=== PATIENT | male | born 1975 | race Two or more races ===

== ENCOUNTER 2019-01-04 12:10 | Inpatient (IN) | payer SELFPAY ==
[~2019-01-04] VITALS: Ht 170.2 cm; Wt 108.9 kg
[2019-01-04 13:53] LABS: BASO % 1 % (0-3); EOS # 0.1 x10^3/uL (0.0-0.7); EOS % 1 % (0-3); HEMATOCRIT 31.8 % (39.0-53.0); HEMOGLOBIN 11.2 g/dL (13.0-17.5); LYMPH # 0.8 x10^3/uL (1.0-4.8); LYMPH % 13 % (24-48); MEAN CORPUSCULAR HEMOGLOBIN 37 pg (25-35); MEAN CORPUSCULAR HGB CONC 35 g/dL (31-37); MEAN CORPUSCULAR VOLUME 105 fL (79-100); MONO # 0.6 x10^3/uL (0.0-1.1); MONO % 10 % (0-9); NEUT # 4.3 x10^3/uL (1.8-7.7); NEUT % 75 % (31-73); PLATELET COUNT 78 x10^3/uL (140-400); RED BLOOD COUNT 3.02 x10^6/uL (4.30-5.70); RED CELL DISTRIBUTION WIDTH 15.5 % (11.5-14.5); WHITE BLOOD COUNT 5.7 x10^3/uL (4.0-11.0)
[2019-01-04 14:12] LABS: CALCIUM 7.6 mg/dL (8.5-10.1); CREATININE 0.7 mg/dL (0.7-1.3); GFR 122.5; POTASSIUM 3.3 mmol/L (3.5-5.1)
[2019-01-04 14:16] LABS: BILIRUBIN,URINE LARGE (NEG); CLARITY,URINE CLEAR; COLOR,URINE ORANGE; NITRITE,URINE NEGATIVE (NEG); PROTEIN,URINE 100 mg/dL (NEG-TRACE)
[2019-01-04 14:23] LABS: BACTERIA,URINE 0 /HPF (0-FEW); RBC,URINE OCC /HPF (0-2); SQUAMOUS EPITHELIAL CELL,UR FEW /LPF; WBC,URINE RARE /HPF (0-4)
[2019-01-04 14:24] LABS: AMPHETAMINE/METHAMPHETAMINE NEG (NEG); BARBITURATES NEG (NEG); BENZODIAZEPINES NEG (NEG); CANNABINOIDS NEG (NEG); COCAINE NEG (NEG); METHADONE NEG (NEG); OPIATES NEG (NEG); PHENCYCLIDINE NEG (NEG)
[2019-01-04 14:25] LABS: ALBUMIN 2.5 g/dL (3.4-5.0); ALBUMIN/GLOBULIN RATIO 0.5 (1.0-1.7); TOTAL PROTEIN 7.1 g/dL (6.4-8.2)
[2019-01-04 14:35] LABS: % BANDS 3 % (0-9); % BASOS 2 % (0-3); % EOS 2 % (0-5); % LYMPHS 14 % (24-48); % MONOS 9 % (0-10); % SEGS 70 % (35-66)
[2019-01-04 14:45] LABS: PLT ESTIMATE DECREASED (ADEQUATE)
[2019-01-04] MEDS ORDERED: IOHEXOL 240 MG/ML 50ML VIAL. PO ONE (15:15)
[2019-01-04] MEDS ORDERED: IOHEXOL 300 MG/ML 100ML VIAL. IV ONE (15:15)
[2019-01-04 15:27] LABS: PROTHROMBIN TIME PATIENT 18.3 SEC (11.7-14.0)
--- NOTE | 2019-01-04 15:28 | PHYS DOC ---
Past Medical History Past Medical History: Anxiety Additional Past Medical Histor: PANIC ATTACKS Past Surgical History: No Surgical History Alcohol Use: Heavy Additional Information: STOPPED DRINKING APPROX 20 BEERS A DAY 3 DAYS AGO Drug Use: None Adult General Chief Complaint Chief Complaint: ABNORMAL LABS [facility] HPI Patient is a 43 year old male with history of chronic alcohol abuse who presents with complaining of abnormal labs. Patient was seen by his primary care physician because of frequent ecchymosis and was told to come to ER because abnormal labs. She states he has had dizzy without bruising for the last 1 month without hematemesis, melena, hematuria, losing weight, abdominal pain or distention, chest pain and shortness of breath. Patient states he had history of 25 years of alcohol abuse. Review of Systems Review of Systems Constitutional: Denies fever or chills [] Eyes: Denies change in visual acuity, redness, or eye pain [] HENT: Denies nasal congestion or sore throat [] Respiratory: Denies cough or shortness of breath [] Cardiovascular: No additional information not addressed in HPI [] GI: Denies abdominal pain, nausea, vomiting, bloody stools or diarrhea [] : Denies dysuria or hematuria [] Musculoskeletal: Denies back pain or joint pain [] Integument: Denies rash or skin lesions [] Neurologic: Denies headache, focal weakness or sensory changes [] Endocrine: Denies polyuria or polydipsia [] All other systems were reviewed and found to be within normal limits, except as documented in this note. Current Medications Current Medications Current Medications Medications (Trade) Dose Ordered Sig/Amrik Start Time Stop Time Status Last Admin Dose Admin Info (CONTRAST GIVEN -- Rx MONITORING) 1 each PRN DAILY PRN 01/04/19 15:30 01/06/19 15:29 Iohexol (Omnipaque 240 Mg/ml) 30 ml 1X ONCE 01/04/19 15:15 01/04/19 15:17 DC 01/04/19 15:15 30 ML Iohexol (Omnipaque 300 Mg/ml) 75 ml 1X ONCE 01/04/19 15:15 01/04/19 15:17 DC 01/04/19 16:20 75 ML Allergies Allergies Allergies Coded Allergies Type Severity Reaction Last Updated Verified No Known Drug Allergies 01/04/19 No Physical Exam Physical Exam Constitutional: Well developed, well nourished, no acute distress, non-toxic appearance. [] HENT: Normocephalic, atraumatic, bilateral external ears normal, oropharynx moist, no oral exudates, nose normal. [] Eyes: PERRLA, EOMI, conjunctiva normal, no discharge. [] Neck: Normal range of motion, no tenderness, supple, no stridor. [] Cardiovascular:Heart rate regular rhythm, no murmur [] Lungs & Thorax: Bilateral breath sounds clear to auscultation [] Abdomen: Bowel sounds normal, soft, no tenderness, no masses, no pulsatile masses. [] Skin: Warm, dry, no erythema, no rash. [] Back: No tenderness, no CVA tenderness. [] Extremities: No tenderness, no cyanosis, no clubbing, ROM intact, no edema. [] Neurologic: Alert and oriented X 3, normal motor function, normal sensory function, no focal deficits noted. [] Psychologic: Affect normal, judgement normal, mood normal. [] Current Patient Data Vital Signs Vital Signs Date Time Temp Pulse Resp B/P (MAP) Pulse Ox O2 Delivery O2 Flow Rate FiO2 01/04/19 16:05 97 19 150/103 (119) 96 Room Air 01/04/19 12:59 98.8 98.8 Lab Values Laboratory Tests Test 01/04/19 13:38 01/04/19 14:05 White Blood Count 5.7 x10^3/uL (4.0-11.0) Red Blood Count 3.02 x10^6/uL (4.30-5.70) L Hemoglobin 11.2 g/dL (13.0-17.5) L Hematocrit 31.8 % (39.0-53.0) L Mean Corpuscular Volume 105 fL (79-100) H Mean Corpuscular Hemoglobin 37 pg (25-35) H Mean Corpuscular Hemoglobin Concent 35 g/dL (31-37) Red Cell Distribution Width 15.5 % (11.5-14.5) H Platelet Count 78 x10^3/uL (140-400) L Neutrophils (%) (Auto) 75 % (31-73) H Lymphocytes (%) (Auto) 13 % (24-48) L Monocytes (%) (Auto) 10 % (0-9) H Eosinophils (%) (Auto) 1 % (0-3) Basophils (%) (Auto) 1 % (0-3) Neutrophils # (Auto) 4.3 x10^3/uL (1.8-7.7) Lymphocytes # (Auto) 0.8 x10^3/uL (1.0-4.8) L Monocytes # (Auto) 0.6 x10^3/uL (0.0-1.1) Eosinophils # (Auto) 0.1 x10^3/uL (0.0-0.7) Basophils # (Auto) 0.0 x10^3/uL (0.0-0.2) Segmented Neutrophils % 70 % (35-66) H Band Neutrophils % 3 % (0-9) Lymphocytes % 14 % (24-48) L Monocytes % 9 % (0-10) Eosinophils % 2 % (0-5) Basophils % 2 % (0-3) Platelet Estimate Decreased (ADEQUATE) Macrocytosis Mod Prothrombin Time 18.3 SEC (11.7-14.0) H Prothrombin Time INR 1.6 (0.8-1.1) H Sodium Level 136 mmol/L (136-145) Potassium Level 3.3 mmol/L (3.5-5.1) L Chloride Level 99 mmol/L (98-107) Carbon Dioxide Level 26 mmol/L (21-32) Anion Gap 11 (6-14) Blood Urea Nitrogen 10 mg/dL (8-26) Creatinine 0.7 mg/dL (0.7-1.3) Estimated GFR (Cockcroft-Gault) 122.5 BUN/Creatinine Ratio 14 (6-20) Glucose Level 101 mg/dL (70-99) H Calcium Level 7.6 mg/dL (8.5-10.1) L Total Bilirubin 9.0 mg/dL (0.2-1.0) H Aspartate Amino Transferase (AST) 155 U/L (15-37) H Alanine Aminotransferase (ALT) 67 U/L (16-63) H Alkaline Phosphatase 147 U/L (46-116) H Total Protein 7.1 g/dL (6.4-8.2) Albumin 2.5 g/dL (3.4-5.0) L Albumin/Globulin Ratio 0.5 (1.0-1.7) L Lipase 3468 U/L (73-393) H Ethyl Alcohol Level 68 mg/dL (0-10) H Urine Collection Type Void Urine Color [place] Urine Clarity Clear Urine pH 8.0 Urine Specific [place] 1.020 Urine Protein 100 mg/dL (NEG-TRACE) Urine Glucose (UA) Negative mg/dL (NEG) Urine Ketones (Stick) Trace mg/dL (NEG) Urine Blood Negative (NEG) Urine Nitrite Negative (NEG) Urine Bilirubin Large (NEG) Urine Urobilinogen Dipstick 1.0 mg/dL (0.2 mg/dL) Urine Leukocyte Esterase Small (NEG) Urine RBC Occ /HPF (0-2) Urine WBC Rare /HPF (0-4) Urine Squamous Epithelial Cells Few /LPF Urine Bacteria 0 /HPF (0-FEW) Urine Opiates Screen Neg (NEG) Urine Methadone Screen Neg (NEG) Urine Barbiturates Neg (NEG) Urine Phencyclidine Screen Neg (NEG) Urine Amphetamine/Methamphetamine Neg (NEG) Urine Benzodiazepines Screen Neg (NEG) Urine Cocaine Screen Neg (NEG) Urine Cannabinoids Screen Neg (NEG) Urine Ethyl Alcohol Pos (NEG) Laboratory Tests 01/04/19 13:38 Laboratory Tests 01/04/19 13:38 EKG EKG [] Radiology/Procedures Radiology/Procedures [facility] [address] [place], [place] [id number] IMAGING REPORT Signed PATIENT: WHITNEY PIRES ACCOUNT: [id number] : 1975 LOCATION: [address] [place] [address] AGE: 43 SEX: M EXAM STATUS: ADM IN ORD. PHYSICIAN: BLACK COCHRAN MD REASON: juandice PROCEDURE: CT ABD PELV W/ORAL&IV CONTRAST CT ABD PELV W/ORAL IV CONTRAST Indication: Jaundice. Abnormal labs. Bruising. Exposure: One or more of the following individualized dose reduction techniques were utilized for this examination: 1. Automated exposure control 2. Adjustment of the mA and/or kV according to patient size 3. Use of iterative reconstruction technique. Technique: Intravenous contrast was given. Oral contrast was given. Comparison prior sent: None FINDINGS: Small left pleural effusion. Trace right pleural effusion. Mild atelectasis/infiltrate in the lung bases. Liver demonstrates a slightly nodular contour. The right lobe of liver is slightly small, with mild relative hypertrophy of the caudate and left lobe. Ill-defined hypoattenuation with some mass effect at lateral aspect of the caudate lobe, measuring about 5 cm, possibly due to a mass in the liver. Spleen is nonenlarged. Pancreas unremarkable. No evidence of adrenal mass. Kidneys demonstrate symmetric enhancement without evidence of mass or hydronephrosis. Gallbladder wall thickening with mild pericholecystic fluid. Gallbladder is mildly distended. No calcified stone. Aorta is mildly calcified without evidence of aneurysm. No significant lymph node enlargement. Mild wall thickening of the distal esophagus. Mild wall thickening of the duodenum. No significant small bowel distention. There is progressive dilution of the contrast column in the distal small bowel. Mild wall thickening of the descending colon and sigmoid colon. Mild wall thickening of the transverse colon. Moderate to severe wall thickening of the cecum and ascending colon. There is inflammatory type stranding around the colon, greatest at the cecum and ascending colon where there is also fascial thickening. No evidence of pneumoperitoneum. There is also inflammatory type stranding and fascial thickening in the left peritoneum and anterior pararenal fascia. Diffuse mesenteric stranding. Mild pelvic ascites. There is mild ascites in the right abdomen, perihepatic and in the right paracolic gutter. This overall measures simple density characteristics. The urinary bladder is not adequately distended for evaluation. Degenerative spondylosis is identified. IMPRESSION: 1. Irregular wall thickening of the cecum and ascending colon with surrounding inflammatory type change and fluid. This is most compatible with a severe colitis, could be of ischemic, infectious or inflammatory etiology. Colonic neoplasm not excludable. Milder colitis involving the remaining colon. 2. Mild gallbladder distention with wall thickening and pericholecystic fluid, concerning for cholecystitis. 3. Mild abdominal and pelvic ascites with generalized peritoneal and retroperitoneal inflammatory type stranding and fascial thickening, greatest in the region of the right colon. 4. Liver morphology suggests cirrhosis. 5. There is a 5 cm region of relative hypoattenuation at the base of the caudate lobe, concerning for a hepatic neoplasm. MRI of the liver could further evaluate. 6. Wall thickening of the distal visualized esophagus and duodenum, consider inflammatory or infectious esophagitis and duodenitis. Duodenal ulcer disease could also be considered. 7. Progressive dilution of the distal small bowel contrast column, may be due to ileus or functional obstruction from the colonic pathology discussed above. 8. Findings were discussed with Dr. Cochran in the emergency room at the time of this interpretation. Electronically signed by: Floyd Bocanegra MD (01/04/2019 5:00 PM) [id number] DICTATED and SIGNED BY: FLOYD BOCANEGRA MD DATE: 01/04/19 1700 Course & Med Decision Making Course & Med Decision Making Pertinent Labs and Imaging studies reviewed. (See chart for details) [Patient requiring admission for further evaluation and treatment. Discussed with (hospitalist) who is in agreement with admission. Discussed findings and plan with patient and family, who acknowledge understanding and agreement. Dragon Disclaimer Dragon Disclaimer This electronic medical record was generated, in whole or in part, using a voice recognition dictation system. Departure Departure Impression: Primary Impression: Jaundice Additional Impressions: Thrombocytopenia Pancreatitis Alcoholic liver disease Colitis Cholelithiasis Disposition: ADMITTED INPATIENT (at 1517) Admitting Physician: LEONIE (Dr. Frias Accepted Admission at 1517) Condition: IMPROVED Referrals: NO PCP (PCP) Problem Qualifiers Additional Impressions: Pancreatitis Chronicity: acute Pancreatitis type: unspecified pancreatitis type Acute pancreatitis complication: unspecified Qualified Codes: K85.90 - Acute pancreatitis without necrosis or infection, unspecified Cholelithiasis Cholelithiasis location: gallbladder Cholecystitis presence: without cholecystitis Biliary obstruction: without biliary obstruction Qualified Codes: K80.20 - Calculus of gallbladder without cholecystitis without obstruction BLACK COCHRAN MD Jan 04, 2019 15:28
[2019-01-04] MEDS ORDERED: CONTRAST GIVEN. MC PRN (15:30)
--- NOTE | 2019-01-04 16:29 | PDOC1 ---
History and Physical Date of Admission: Date of Admission DATE: 01/04/19 TIME: 16:26 Chief Complaint: Problems: (1) Jaundice (2) Alcoholic liver disease (3) Pancreatitis (4) Thrombocytopenia Chief Complain: Bruising and jaundice History of Present Illness: HPI: This is a middle-aged male who drinks 30 beers a day Now is jaundiced and he has bruises everywhere Indeed he has thrombocytopenia and his INR is 1.6 I suspect he has near end-stage liver disease secondary to alcoholism Neurontin with patient and consult heme hematology and palliative care We'll also be doing some alcohol withdrawal protocol Past Medical/Surgical History: PMH/PSH: Past Medical History: Anxiety Additional Past Medical Histor: PANIC ATTACKS Past Surgical History: No Surgical History Alcohol Use: Heavy Additional Information: Alcoholism with 30 beers a day Allergies: Allergies: Coded Allergies: No Known Drug Allergies (Unverified , 01/04/19) Family History: Family History: Alcoholism Social History: Social Hisoty: He drinks 30 beers a day Current Medications: Current Medications Current Medications Iohexol (Omnipaque 240 Mg/ml) 30 ml 1X ONCE PO Last administered on 01/04/19at 15:15; Start 01/04/19 at 15:15; Stop 01/04/19 at 15:17; Status DC Iohexol (Omnipaque 300 Mg/ml) 75 ml 1X ONCE IV Last administered on 01/04/19at 16:20; Start 01/04/19 at 15:15; Stop 01/04/19 at 15:17; Status DC Info (CONTRAST GIVEN -- Rx MONITORING) 1 each PRN DAILY PRN MC SEE COMMENTS; Start 01/04/19 at 15:30; Stop 01/06/19 at 15:29 ROS: Review of Systems Review of System REVIEW OF SYSTEMS: GENERAL: Denies weakness SKIN: No bruising, hair changes or rashes. EYES: No blurred, double or loss of vision. NOSE AND THROAT: No history of nosebleeds, hoarseness or sore throat. HEART: No history of palpitations, chest pain or shortness of breath on exertion. LUNGS: Denies cough, hemoptysis, wheezing or shortness of breath. GASTROINTESTINAL: Denies changes in appetite, nausea, vomiting, diarrhea or constipation. GENITOURINARY: No history of frequency, urgency, hesitancy or nocturia. NEUROLOGIC: Denies history of numbness, tingling, tremor or weakness. PSYCHIATRIC: No history of panic, anxiety or depression. ENDOCRINE: No history of heat or cold intolerance, polyuria or polydipsia. EXTREMITIES: Denies muscle weakness, joint pain, pain on walking or stiffness. Physical Exam: Vital Signs: Vital Signs Date Time Temp Pulse Resp B/P (MAP) Pulse Ox O2 Delivery O2 Flow Rate FiO2 01/04/19 16:05 97 19 150/103 (119) 96 Room Air 01/04/19 12:59 98.8 98.8 Physcial Exam: GEN.: No apparent distress. Alert and oriented. HEENT: Head is normocephalic, atraumatic NECK: Supple, no JVD LUNGS: Clear to auscultation without rhonchi or wheezing HEART: RRR, S1, S2 present. Peripheral pulses intact ABDOMEN: Soft, nontender. Positive bowel sounds no organomegaly EXTREMITIES: Without any cyanosis, clubbing, or edema. Pedal pulses intact NEUROLOGIC: Normal speech, normal tone. A&O x 3 PSYCHIATRIC: Normal affect, normal mood. Stable SKIN: No ulcerations or rashes VASCULAR: Good capillary refill Labs: Labs: Laboratory Tests Test 01/04/19 13:38 01/04/19 14:05 White Blood Count 5.7 x10^3/uL (4.0-11.0) Red Blood Count 3.02 x10^6/uL (4.30-5.70) Hemoglobin 11.2 g/dL (13.0-17.5) Hematocrit 31.8 % (39.0-53.0) Mean Corpuscular Volume 105 fL (79-100) Mean Corpuscular Hemoglobin 37 pg (25-35) Mean Corpuscular Hemoglobin Concent 35 g/dL (31-37) Red Cell Distribution Width 15.5 % (11.5-14.5) Platelet Count 78 x10^3/uL (140-400) Neutrophils (%) (Auto) 75 % (31-73) Lymphocytes (%) (Auto) 13 % (24-48) Monocytes (%) (Auto) 10 % (0-9) Eosinophils (%) (Auto) 1 % (0-3) Basophils (%) (Auto) 1 % (0-3) Neutrophils # (Auto) 4.3 x10^3/uL (1.8-7.7) Lymphocytes # (Auto) 0.8 x10^3/uL (1.0-4.8) Monocytes # (Auto) 0.6 x10^3/uL (0.0-1.1) Eosinophils # (Auto) 0.1 x10^3/uL (0.0-0.7) Basophils # (Auto) 0.0 x10^3/uL (0.0-0.2) Segmented Neutrophils % 70 % (35-66) Band Neutrophils % 3 % (0-9) Lymphocytes % 14 % (24-48) Monocytes % 9 % (0-10) Eosinophils % 2 % (0-5) Basophils % 2 % (0-3) Platelet Estimate Decreased (ADEQUATE) Macrocytosis Mod Prothrombin Time 18.3 SEC (11.7-14.0) Prothromb Time International Ratio 1.6 (0.8-1.1) Sodium Level 136 mmol/L (136-145) Potassium Level 3.3 mmol/L (3.5-5.1) Chloride Level 99 mmol/L (98-107) Carbon Dioxide Level 26 mmol/L (21-32) Anion Gap 11 (6-14) Blood Urea Nitrogen 10 mg/dL (8-26) Creatinine 0.7 mg/dL (0.7-1.3) Estimated GFR (Cockcroft-Gault) 122.5 BUN/Creatinine Ratio 14 (6-20) Glucose Level 101 mg/dL (70-99) Calcium Level 7.6 mg/dL (8.5-10.1) Total Bilirubin 9.0 mg/dL (0.2-1.0) Aspartate Amino Transf (AST/SGOT) 155 U/L (15-37) Alanine Aminotransferase (ALT/SGPT) 67 U/L (16-63) Alkaline Phosphatase 147 U/L (46-116) Total Protein 7.1 g/dL (6.4-8.2) Albumin 2.5 g/dL (3.4-5.0) Albumin/Globulin Ratio 0.5 (1.0-1.7) Lipase 3468 U/L (73-393) Ethyl Alcohol Level 68 mg/dL (0-10) Urine Collection Type Void Urine Color [place] Urine Clarity Clear Urine pH 8.0 Urine Specific [place] 1.020 Urine Protein 100 mg/dL (NEG-TRACE) Urine Glucose (UA) Negative mg/dL (NEG) Urine Ketones (Stick) Trace mg/dL (NEG) Urine Blood Negative (NEG) Urine Nitrite Negative (NEG) Urine Bilirubin Large (NEG) Urine Urobilinogen Dipstick 1.0 mg/dL (0.2 mg/dL) Urine Leukocyte Esterase Small (NEG) Urine RBC Occ /HPF (0-2) Urine WBC Rare /HPF (0-4) Urine Squamous Epithelial Cells Few /LPF Urine Bacteria 0 /HPF (0-FEW) Urine Opiates Screen Neg (NEG) Urine Methadone Screen Neg (NEG) Urine Barbiturates Neg (NEG) Urine Phencyclidine Screen Neg (NEG) Urine Amphetamine/Methamphetamine Neg (NEG) Urine Benzodiazepines Screen Neg (NEG) Urine Cocaine Screen Neg (NEG) Urine Cannabinoids Screen Neg (NEG) Urine Ethyl Alcohol Pos (NEG) Laboratory Tests Test 01/04/19 13:38 01/04/19 14:05 White Blood Count 5.7 x10^3/uL (4.0-11.0) Red Blood Count 3.02 x10^6/uL (4.30-5.70) Hemoglobin 11.2 g/dL (13.0-17.5) Hematocrit 31.8 % (39.0-53.0) Mean Corpuscular Volume 105 fL (79-100) Mean Corpuscular Hemoglobin 37 pg (25-35) Mean Corpuscular Hemoglobin Concent 35 g/dL (31-37) Red Cell Distribution Width 15.5 % (11.5-14.5) Platelet Count 78 x10^3/uL (140-400) Neutrophils (%) (Auto) 75 % (31-73) Lymphocytes (%) (Auto) 13 % (24-48) Monocytes (%) (Auto) 10 % (0-9) Eosinophils (%) (Auto) 1 % (0-3) Basophils (%) (Auto) 1 % (0-3) Neutrophils # (Auto) 4.3 x10^3/uL (1.8-7.7) Lymphocytes # (Auto) 0.8 x10^3/uL (1.0-4.8) Monocytes # (Auto) 0.6 x10^3/uL (0.0-1.1) Eosinophils # (Auto) 0.1 x10^3/uL (0.0-0.7) Basophils # (Auto) 0.0 x10^3/uL (0.0-0.2) Segmented Neutrophils % 70 % (35-66) Band Neutrophils % 3 % (0-9) Lymphocytes % 14 % (24-48) Monocytes % 9 % (0-10) Eosinophils % 2 % (0-5) Basophils % 2 % (0-3) Platelet Estimate Decreased (ADEQUATE) Macrocytosis Mod Prothrombin Time 18.3 SEC (11.7-14.0) Prothromb Time International Ratio 1.6 (0.8-1.1) Sodium Level 136 mmol/L (136-145) Potassium Level 3.3 mmol/L (3.5-5.1) Chloride Level 99 mmol/L (98-107) Carbon Dioxide Level 26 mmol/L (21-32) Anion Gap 11 (6-14) Blood Urea Nitrogen 10 mg/dL (8-26) Creatinine 0.7 mg/dL (0.7-1.3) Estimated GFR (Cockcroft-Gault) 122.5 BUN/Creatinine Ratio 14 (6-20) Glucose Level 101 mg/dL (70-99) Calcium Level 7.6 mg/dL (8.5-10.1) Total Bilirubin 9.0 mg/dL (0.2-1.0) Aspartate Amino Transf (AST/SGOT) 155 U/L (15-37) Alanine Aminotransferase (ALT/SGPT) 67 U/L (16-63) Alkaline Phosphatase 147 U/L (46-116) Total Protein 7.1 g/dL (6.4-8.2) Albumin 2.5 g/dL (3.4-5.0) Albumin/Globulin Ratio 0.5 (1.0-1.7) Lipase 3468 U/L (73-393) Ethyl Alcohol Level 68 mg/dL (0-10) Urine Collection Type Void Urine Color [place] Urine Clarity Clear Urine pH 8.0 Urine Specific [place] 1.020 Urine Protein 100 mg/dL (NEG-TRACE) Urine Glucose (UA) Negative mg/dL (NEG) Urine Ketones (Stick) Trace mg/dL (NEG) Urine Blood Negative (NEG) Urine Nitrite Negative (NEG) Urine Bilirubin Large (NEG) Urine Urobilinogen Dipstick 1.0 mg/dL (0.2 mg/dL) Urine Leukocyte Esterase Small (NEG) Urine RBC Occ /HPF (0-2) Urine WBC Rare /HPF (0-4) Urine Squamous Epithelial Cells Few /LPF Urine Bacteria 0 /HPF (0-FEW) Urine Opiates Screen Neg (NEG) Urine Methadone Screen Neg (NEG) Urine Barbiturates Neg (NEG) Urine Phencyclidine Screen Neg (NEG) Urine Amphetamine/Methamphetamine Neg (NEG) Urine Benzodiazepines Screen Neg (NEG) Urine Cocaine Screen Neg (NEG) Urine Cannabinoids Screen Neg (NEG) Urine Ethyl Alcohol Pos (NEG) Assessment/Plan Assessment/Plan Diffuse ecchymosis on his lower extremities with thrombocytopenia and coagulopathy suspect this is secondary to alcohol issues Plan Consult palliative care Consult hematology Frequent labs Alcohol withdrawal protocol Home meds DVT prophylaxis but he is already auto anticoagulated Prognosis very poor SACHIN TRAN III DO Jan 04, 2019 16:29
--- NOTE | 2019-01-04 17:03 | RAD ---
CT ABD PELV W/ORAL IV CONTRAST Indication: Jaundice. Abnormal labs. Bruising. Exposure: One or more of the following individualized dose reduction techniques were utilized for this examination: 1. Automated exposure control 2. Adjustment of the mA and/or kV according to patient size 3. Use of iterative reconstruction technique. Technique: Intravenous contrast was given. Oral contrast was given. Comparison prior sent: None FINDINGS: Small left pleural effusion. Trace right pleural effusion. Mild atelectasis/infiltrate in the lung bases. Liver demonstrates a slightly nodular contour. The right lobe of liver is slightly small, with mild relative hypertrophy of the caudate and left lobe. Ill-defined hypoattenuation with some mass effect at lateral aspect of the caudate lobe, measuring about 5 cm, possibly due to a mass in the liver. Spleen is nonenlarged. Pancreas unremarkable. No evidence of adrenal mass. Kidneys demonstrate symmetric enhancement without evidence of mass or hydronephrosis. Gallbladder wall thickening with mild pericholecystic fluid. Gallbladder is mildly distended. No calcified stone. Aorta is mildly calcified without evidence of aneurysm. No significant lymph node enlargement. Mild wall thickening of the distal esophagus. Mild wall thickening of the duodenum. No significant small bowel distention. There is progressive dilution of the contrast column in the distal small bowel. Mild wall thickening of the descending colon and sigmoid colon. Mild wall thickening of the transverse colon. Moderate to severe wall thickening of the cecum and ascending colon. There is inflammatory type stranding around the colon, greatest at the cecum and ascending colon where there is also fascial thickening. No evidence of pneumoperitoneum. There is also inflammatory type stranding and fascial thickening in the left peritoneum and anterior pararenal fascia. Diffuse mesenteric stranding. Mild pelvic ascites. There is mild ascites in the right abdomen, perihepatic and in the right paracolic gutter. This overall measures simple density characteristics. The urinary bladder is not adequately distended for evaluation. Degenerative spondylosis is identified. IMPRESSION: 1. Irregular wall thickening of the cecum and ascending colon with surrounding inflammatory type change and fluid. This is most compatible with a severe colitis, could be of ischemic, infectious or inflammatory etiology. Colonic neoplasm not excludable. Milder colitis involving the remaining colon. 2. Mild gallbladder distention with wall thickening and pericholecystic fluid, concerning for cholecystitis. 3. Mild abdominal and pelvic ascites with generalized peritoneal and retroperitoneal inflammatory type stranding and fascial thickening, greatest in the region of the right colon. 4. Liver morphology suggests cirrhosis. 5. There is a 5 cm region of relative hypoattenuation at the base of the caudate lobe, concerning for a hepatic neoplasm. MRI of the liver could further evaluate. 6. Wall thickening of the distal visualized esophagus and duodenum, consider inflammatory or infectious esophagitis and duodenitis. Duodenal ulcer disease could also be considered. 7. Progressive dilution of the distal small bowel contrast column, may be due to ileus or functional obstruction from the colonic pathology discussed above. 8. Findings were discussed with Dr. Perez in the emergency room at the time of this interpretation. Electronically signed by: Floyd Bocanegra MD (01/04/2019 5:00 PM) [id number]
[2019-01-04] MEDS ORDERED: LORazepam 1 MG TABLET PO PRN ×2 (17:45)
[2019-01-04] MEDS ORDERED: cloNIDine HCL 0.1 MG TABLET PO PRN (17:45)
[2019-01-04] MEDS ORDERED: diphenhydrAMINE 50 MG/ML VIAL IVP PRN (17:45)
[2019-01-04] MEDS ORDERED: HALOPERIDOL LACTATE 5 MG/ML VIAL. IVP PRN (17:45)
[2019-01-04] MEDS ORDERED: chlordiazePOXIDE HCL 25 MG CAPSULE PO PRN (17:45)
[2019-01-04] MEDS: MULTIVIT INFUSN,ADULT 4,VIT K 10 ML, THIAMINE INJ 100 MG, FOLIC ACID INJ 1 MG in IV NOR... IV SCH (18:17)
[2019-01-04] MEDS ORDERED: OMEP40CA5 PO (18:42)
[2019-01-04 19:00] VITALS: BP 139/81
[2019-01-04] MEDS ORDERED: ONDANSETRON PF 4 MG/2 ML VIAL. IV PRN (19:30)
[2019-01-04] MEDS: chlordiazePOXIDE HCL 25 MG CAPSULE PO PRN ×2 (21:07→23:50)
[2019-01-04 23:00] VITALS: BP 115/86
[2019-01-05 03:00] VITALS: BP 132/83
[2019-01-05] MEDS: chlordiazePOXIDE HCL 25 MG CAPSULE PO PRN (06:27)
[2019-01-05 07:00] VITALS: BP 107/72
[2019-01-05] MEDS: MULTIVIT INFUSN,ADULT 4,VIT K 10 ML, THIAMINE INJ 100 MG, FOLIC ACID INJ 1 MG in IV NOR... IV SCH (09:14)
--- NOTE | 2019-01-05 10:50 | PDOC2 ---
CONSULT Date of Consult Date of Consult DATE: 01/05/19 TIME: 10:38 Reason for Consult Reason for Consult: Thrombocytopenia Referring Physician Referring Physician: Rodriguez Source Source: Chart review History of Present Illness Reason for Visit: 43 yo male who is a chronic alcohol abuser and as per chart drinks 30 drinks per day. He presented to the hospital with abnormal labs, easy bruising for a month and dizziness. I was consulted for low platelets and bruising. He underwent a ct scan of the abdomen and pelvis that showed irregular thickening of cecum and colon compatible with severe colitis, colonic neoplasm could not be excluded. Mild gallbladder distension with thickening, mild ascites, liver cirrhosis with a questionable 5 cm hypoattenuation at the base of the caudate lobe concerning for neoplasm. On labs he has a bilirubin of 9 and a transaminitis with an elevated lipase. The patient is obtunded and unable to give any history Past Medical History Past Medical History Unable to obtain from the patient Family History Family History Unable to obtain due to mental status Social History ALCOHOL: heavy Current Problem List Problem List Problems Medical Problems: (1) Alcoholic liver disease Status: Acute (2) Cholelithiasis Status: Acute (3) Colitis Status: Acute (4) Jaundice Status: Acute (5) Pancreatitis Status: Acute (6) Thrombocytopenia Status: Acute Current Medications Current Medications Current Medications Iohexol (Omnipaque 240 Mg/ml) 30 ml 1X ONCE PO Last administered on 01/04/19at 15:15; Start 01/04/19 at 15:15; Stop 01/04/19 at 15:17; Status DC Iohexol (Omnipaque 300 Mg/ml) 75 ml 1X ONCE IV Last administered on 01/04/19at 16:20; Start 01/04/19 at 15:15; Stop 01/04/19 at 15:17; Status DC Info (CONTRAST GIVEN -- Rx MONITORING) 1 each PRN DAILY PRN MC SEE COMMENTS; Start 01/04/19 at 15:30; Stop 01/06/19 at 15:29 Multivitamins 10 ml/Thiamine HCl 100 mg/Folic Acid 1 mg/Sodium Chloride 1,011.2 ml @ 100 mls/ hr DAILY IV Last administered on 01/05/19at 09:14; Start 01/04/19 at 18:00; Stop 01/08/19 at 19:07 Chlordiazepoxide (Librium) 50 mg PRN Q1HR PRN PO For CIWA 8-14 Last administered on 01/04/19at 18:17; Start 01/04/19 at 17:45 Chlordiazepoxide (Librium) 100 mg PRN Q1HR PRN PO For CIWA 15 or greater Last administered on 01/05/19at 06:27; Start 01/04/19 at 17:45 Lorazepam (Ativan) 4 mg PRN Q1HR PRN PO For CIWA 8-14 Last administered on 01/04/19at 18:17; Start 01/04/19 at 17:45 Lorazepam (Ativan) 8 mg PRN Q1HR PRN PO For CIWA 15 or greater; Start 01/04/19 at 17:45 Haloperidol Lactate (Haldol Inj) 5 mg PRN Q4HRS PRN IVP Hallucinatns,Confusn,Delirium; Start 01/04/19 at 17:45 Diphenhydramine HCl (Benadryl) 25 mg PRN Q15MIN PRN IVP EPS symptoms 2'Haldol admin; Start 01/04/19 at 17:45 Clonidine HCl (Catapres) 0.1 mg PRN Q1HR PRN PO SBP > 180 or DBP > 100, MRX3; Start 01/04/19 at 17:45 Lorazepam (Ativan Inj) 2 mg PRN Q1HR PRN IV For CIWA 8-14 Last administered on 01/04/19at 21:08; Start 01/04/19 at 19:15 Lorazepam (Ativan Inj) 4 mg PRN Q1HR PRN IV For CIWA 15 or greater Last administered on 01/05/19at 06:28; Start 01/04/19 at 19:15 Lorazepam (Ativan Inj) 2 mg PRN Q15MIN PRN IV SEE COMMENTS; Start 01/04/19 at 1 9:15; Status UNV Lorazepam (Ativan Inj) 4 mg PRN Q15MIN PRN IV SEE COMMENTS; Start 01/04/19 at 19:15; Status UNV Ondansetron HCl (Zofran) 4 mg PRN Q6HRS PRN IV NAUSEA/VOMITING Last administered on 01/04/19at 19:34; Start 01/04/19 at 19:30 Active Scripts Active Reported Omeprazole 40 Mg Capsule. 1 Cap PO DAILY Allergies Allergies: Coded Allergies: No Known Drug Allergies (Unverified , 01/04/19) ROS Review of System Unable to obtain secondary to patients mental status Physical Exam General: Other (Responds minimally to commands but cannot answer any questions, Jaundice) HEENT: Other ([place]) Lungs: Clear to auscultation, Normal air movement Heart: Regular rate, Normal S1, Normal S2 Abdomen: Normal bowel sounds, Soft, No tenderness Extremities: Other (ecchymoses on arms and legs) Psych/Mental Status: Other (obtunded) Vitals VITALS Vital Signs Date Time Temp Pulse Resp B/P (MAP) Pulse Ox O2 Delivery O2 Flow Rate FiO2 01/05/19 07:00 98.3 125 22 107/72 (84) 94 Room Air 98.3 Labs Labs Laboratory Tests Test 01/04/19 13:38 01/04/19 14:05 White Blood Count 5.7 x10^3/uL (4.0-11.0) Red Blood Count 3.02 x10^6/uL (4.30-5.70) Hemoglobin 11.2 g/dL (13.0-17.5) Hematocrit 31.8 % (39.0-53.0) Mean Corpuscular Volume 105 fL (79-100) Mean Corpuscular Hemoglobin 37 pg (25-35) Mean Corpuscular Hemoglobin Concent 35 g/dL (31-37) Red Cell Distribution Width 15.5 % (11.5-14.5) Platelet Count 78 x10^3/uL (140-400) Neutrophils (%) (Auto) 75 % (31-73) Lymphocytes (%) (Auto) 13 % (24-48) Monocytes (%) (Auto) 10 % (0-9) Eosinophils (%) (Auto) 1 % (0-3) Basophils (%) (Auto) 1 % (0-3) Neutrophils # (Auto) 4.3 x10^3/uL (1.8-7.7) Lymphocytes # (Auto) 0.8 x10^3/uL (1.0-4.8) Monocytes # (Auto) 0.6 x10^3/uL (0.0-1.1) Eosinophils # (Auto) 0.1 x10^3/uL (0.0-0.7) Basophils # (Auto) 0.0 x10^3/uL (0.0-0.2) Segmented Neutrophils % 70 % (35-66) Band Neutrophils % 3 % (0-9) Lymphocytes % 14 % (24-48) Monocytes % 9 % (0-10) Eosinophils % 2 % (0-5) Basophils % 2 % (0-3) Platelet Estimate Decreased (ADEQUATE) Macrocytosis Mod Prothrombin Time 18.3 SEC (11.7-14.0) Prothromb Time International Ratio 1.6 (0.8-1.1) Sodium Level 136 mmol/L (136-145) Potassium Level 3.3 mmol/L (3.5-5.1) Chloride Level 99 mmol/L (98-107) Carbon Dioxide Level 26 mmol/L (21-32) Anion Gap 11 (6-14) Blood Urea Nitrogen 10 mg/dL (8-26) Creatinine 0.7 mg/dL (0.7-1.3) Estimated GFR (Cockcroft-Gault) 122.5 BUN/Creatinine Ratio 14 (6-20) Glucose Level 101 mg/dL (70-99) Calcium Level 7.6 mg/dL (8.5-10.1) Total Bilirubin 9.0 mg/dL (0.2-1.0) Aspartate Amino Transf (AST/SGOT) 155 U/L (15-37) Alanine Aminotransferase (ALT/SGPT) 67 U/L (16-63) Alkaline Phosphatase 147 U/L (46-116) Total Protein 7.1 g/dL (6.4-8.2) Albumin 2.5 g/dL (3.4-5.0) Albumin/Globulin Ratio 0.5 (1.0-1.7) Lipase 3468 U/L (73-393) Ethyl Alcohol Level 68 mg/dL (0-10) Urine Collection Type Void Urine Color [place] Urine Clarity Clear Urine pH 8.0 Urine Specific [place] 1.020 Urine Protein 100 mg/dL (NEG-TRACE) Urine Glucose (UA) Negative mg/dL (NEG) Urine Ketones (Stick) Trace mg/dL (NEG) Urine Blood Negative (NEG) Urine Nitrite Negative (NEG) Urine Bilirubin Large (NEG) Urine Urobilinogen Dipstick 1.0 mg/dL (0.2 mg/dL) Urine Leukocyte Esterase Small (NEG) Urine RBC Occ /HPF (0-2) Urine WBC Rare /HPF (0-4) Urine Squamous Epithelial Cells Few /LPF Urine Bacteria 0 /HPF (0-FEW) Urine Opiates Screen Neg (NEG) Urine Methadone Screen Neg (NEG) Urine Barbiturates Neg (NEG) Urine Phencyclidine Screen Neg (NEG) Urine Amphetamine/Methamphetamine Neg (NEG) Urine Benzodiazepines Screen Neg (NEG) Urine Cocaine Screen Neg (NEG) Urine Cannabinoids Screen Neg (NEG) Urine Ethyl Alcohol Pos (NEG) Laboratory Tests Test 01/04/19 13:38 01/04/19 14:05 White Blood Count 5.7 x10^3/uL (4.0-11.0) Red Blood Count 3.02 x10^6/uL (4.30-5.70) Hemoglobin 11.2 g/dL (13.0-17.5) Hematocrit 31.8 % (39.0-53.0) Mean Corpuscular Volume 105 fL (79-100) Mean Corpuscular Hemoglobin 37 pg (25-35) Mean Corpuscular Hemoglobin Concent 35 g/dL (31-37) Red Cell Distribution Width 15.5 % (11.5-14.5) Platelet Count 78 x10^3/uL (140-400) Neutrophils (%) (Auto) 75 % (31-73) Lymphocytes (%) (Auto) 13 % (24-48) Monocytes (%) (Auto) 10 % (0-9) Eosinophils (%) (Auto) 1 % (0-3) Basophils (%) (Auto) 1 % (0-3) Neutrophils # (Auto) 4.3 x10^3/uL (1.8-7.7) Lymphocytes # (Auto) 0.8 x10^3/uL (1.0-4.8) Monocytes # (Auto) 0.6 x10^3/uL (0.0-1.1) Eosinophils # (Auto) 0.1 x10^3/uL (0.0-0.7) Basophils # (Auto) 0.0 x10^3/uL (0.0-0.2) Segmented Neutrophils % 70 % (35-66) Band Neutrophils % 3 % (0-9) Lymphocytes % 14 % (24-48) Monocytes % 9 % (0-10) Eosinophils % 2 % (0-5) Basophils % 2 % (0-3) Platelet Estimate Decreased (ADEQUATE) Macrocytosis Mod Prothrombin Time 18.3 SEC (11.7-14.0) Prothromb Time International Ratio 1.6 (0.8-1.1) Sodium Level 136 mmol/L (136-145) Potassium Level 3.3 mmol/L (3.5-5.1) Chloride Level 99 mmol/L (98-107) Carbon Dioxide Level 26 mmol/L (21-32) Anion Gap 11 (6-14) Blood Urea Nitrogen 10 mg/dL (8-26) Creatinine 0.7 mg/dL (0.7-1.3) Estimated GFR (Cockcroft-Gault) 122.5 BUN/Creatinine Ratio 14 (6-20) Glucose Level 101 mg/dL (70-99) Calcium Level 7.6 mg/dL (8.5-10.1) Total Bilirubin 9.0 mg/dL (0.2-1.0) Aspartate Amino Transf (AST/SGOT) 155 U/L (15-37) Alanine Aminotransferase (ALT/SGPT) 67 U/L (16-63) Alkaline Phosphatase 147 U/L (46-116) Total Protein 7.1 g/dL (6.4-8.2) Albumin 2.5 g/dL (3.4-5.0) Albumin/Globulin Ratio 0.5 (1.0-1.7) Lipase 3468 U/L (73-393) Ethyl Alcohol Level 68 mg/dL (0-10) Urine Collection Type Void Urine Color [place] Urine Clarity Clear Urine pH 8.0 Urine Specific [place] 1.020 Urine Protein 100 mg/dL (NEG-TRACE) Urine Glucose (UA) Negative mg/dL (NEG) Urine Ketones (Stick) Trace mg/dL (NEG) Urine Blood Negative (NEG) Urine Nitrite Negative (NEG) Urine Bilirubin Large (NEG) Urine Urobilinogen Dipstick 1.0 mg/dL (0.2 mg/dL) Urine Leukocyte Esterase Small (NEG) Urine RBC Occ /HPF (0-2) Urine WBC Rare /HPF (0-4) Urine Squamous Epithelial Cells Few /LPF Urine Bacteria 0 /HPF (0-FEW) Urine Opiates Screen Neg (NEG) Urine Methadone Screen Neg (NEG) Urine Barbiturates Neg (NEG) Urine Phencyclidine Screen Neg (NEG) Urine Amphetamine/Methamphetamine Neg (NEG) Urine Benzodiazepines Screen Neg (NEG) Urine Cocaine Screen Neg (NEG) Urine Cannabinoids Screen Neg (NEG) Urine Ethyl Alcohol Pos (NEG) Assessment/Plan Assessment/Plan 1. Thrombocytopenia. This is most likely secondary to his liver disease and cirrhosis, would continue monitoring 2. Bruising. Again most likely this is from his liver disease, but it also could be from trauma 3. Mental status. He appears to be obtunded from liver failure, would consider imaging head but we are being aggressive 4. Abnormal liver enzymes. His bilirubin is over 9, would continue to monitor, consider getting GI on board if we are not moving to hospice 5. ?mass on CT abd/pelvis. If he improves, I would consider an MRI abdomen for further evaluation. If he is found to have HCC he would not be a candidate for therapy unless he had a dramatic improvement in his bilirubin and performance status 6. ?Colitis. Again not sure how much is planned to work up based on his performance status, but would consider GI evaluation. AURORA CORLEY MD Jan 05, 2019 10:50
[2019-01-05 11:00] VITALS: BP 97/70
--- NOTE | 2019-01-05 12:20 | PDOC ---
[employer] PROGRESS NOTE Chief Complaint Chief Complaint Problems: (1) Jaundice (2) Alcoholic liver disease (3) Pancreatitis (4) Thrombocytopenia Chief Complain: Bruising and jaundice History of Present Illness History of Present Illness Patient was seen and examined He was resting comfortably and in no acute distress Vitals/I&O Vitals/I&O: Vital Signs Date Time Temp Pulse Resp B/P (MAP) Pulse Ox O2 Delivery O2 Flow Rate FiO2 01/05/19 08:00 Room Air 01/05/19 07:00 98.3 125 22 107/72 (84) 94 98.3 I & O 01/04/19 01/04/19 01/05/19 15:00 23:00 07:00 Intake Total 300 ml 180 ml Balance 300 ml 180 ml Physical Exam General: No acute distress, Other (resting comfortably) Heart: Regular rate, Normal S1, Normal S2 Lungs: Clear, Other (symmetrical chest expansion on respiration) Abdomen: Normal bowel sounds, Soft, No tenderness Extremities: No clubbing, No cyanosis, Other (ecchymoses on arms and legs) Skin: No rashes, No breakdown Labs Labs: Laboratory Tests Test 01/04/19 13:38 01/04/19 14:05 White Blood Count 5.7 x10^3/uL (4.0-11.0) Red Blood Count 3.02 x10^6/uL (4.30-5.70) Hemoglobin 11.2 g/dL (13.0-17.5) Hematocrit 31.8 % (39.0-53.0) Mean Corpuscular Volume 105 fL (79-100) Mean Corpuscular Hemoglobin 37 pg (25-35) Mean Corpuscular Hemoglobin Concent 35 g/dL (31-37) Red Cell Distribution Width 15.5 % (11.5-14.5) Platelet Count 78 x10^3/uL (140-400) Neutrophils (%) (Auto) 75 % (31-73) Lymphocytes (%) (Auto) 13 % (24-48) Monocytes (%) (Auto) 10 % (0-9) Eosinophils (%) (Auto) 1 % (0-3) Basophils (%) (Auto) 1 % (0-3) Neutrophils # (Auto) 4.3 x10^3/uL (1.8-7.7) Lymphocytes # (Auto) 0.8 x10^3/uL (1.0-4.8) Monocytes # (Auto) 0.6 x10^3/uL (0.0-1.1) Eosinophils # (Auto) 0.1 x10^3/uL (0.0-0.7) Basophils # (Auto) 0.0 x10^3/uL (0.0-0.2) Segmented Neutrophils % 70 % (35-66) Band Neutrophils % 3 % (0-9) Lymphocytes % 14 % (24-48) Monocytes % 9 % (0-10) Eosinophils % 2 % (0-5) Basophils % 2 % (0-3) Platelet Estimate Decreased (ADEQUATE) Macrocytosis Mod Prothrombin Time 18.3 SEC (11.7-14.0) Prothromb Time International Ratio 1.6 (0.8-1.1) Sodium Level 136 mmol/L (136-145) Potassium Level 3.3 mmol/L (3.5-5.1) Chloride Level 99 mmol/L (98-107) Carbon Dioxide Level 26 mmol/L (21-32) Anion Gap 11 (6-14) Blood Urea Nitrogen 10 mg/dL (8-26) Creatinine 0.7 mg/dL (0.7-1.3) Estimated GFR (Cockcroft-Gault) 122.5 BUN/Creatinine Ratio 14 (6-20) Glucose Level 101 mg/dL (70-99) Calcium Level 7.6 mg/dL (8.5-10.1) Total Bilirubin 9.0 mg/dL (0.2-1.0) Aspartate Amino Transf (AST/SGOT) 155 U/L (15-37) Alanine Aminotransferase (ALT/SGPT) 67 U/L (16-63) Alkaline Phosphatase 147 U/L (46-116) Total Protein 7.1 g/dL (6.4-8.2) Albumin 2.5 g/dL (3.4-5.0) Albumin/Globulin Ratio 0.5 (1.0-1.7) Lipase 3468 U/L (73-393) Ethyl Alcohol Level 68 mg/dL (0-10) Urine Collection Type Void Urine Color [place] Urine Clarity Clear Urine pH 8.0 Urine Specific [place] 1.020 Urine Protein 100 mg/dL (NEG-TRACE) Urine Glucose (UA) Negative mg/dL (NEG) Urine Ketones (Stick) Trace mg/dL (NEG) Urine Blood Negative (NEG) Urine Nitrite Negative (NEG) Urine Bilirubin Large (NEG) Urine Urobilinogen Dipstick 1.0 mg/dL (0.2 mg/dL) Urine Leukocyte Esterase Small (NEG) Urine RBC Occ /HPF (0-2) Urine WBC Rare /HPF (0-4) Urine Squamous Epithelial Cells Few /LPF Urine Bacteria 0 /HPF (0-FEW) Urine Opiates Screen Neg (NEG) Urine Methadone Screen Neg (NEG) Urine Barbiturates Neg (NEG) Urine Phencyclidine Screen Neg (NEG) Urine Amphetamine/Methamphetamine Neg (NEG) Urine Benzodiazepines Screen Neg (NEG) Urine Cocaine Screen Neg (NEG) Urine Cannabinoids Screen Neg (NEG) Urine Ethyl Alcohol Pos (NEG) Review of Systems Review of Systems: General: No fever, no chills Skin: Bruising, no rashes, no sores Assessment and Plan Assessmemt and Plan Problems Medical Problems: (1) Alcoholic liver disease Status: Acute (2) Cholelithiasis Status: Acute (3) Colitis Status: Acute (4) Jaundice Status: Acute (5) Pancreatitis Status: Acute (6) Thrombocytopenia Status: Acute Assessment: Bruising and jaundice Plan: Consulted palliative care - awaiting input Consulted hematology - thrombocytopenia likely due to liver disease, INR 1.6 Frequent labs - CBC and CMP CIWA protocol Continue home meds PT/OT Hold DVT prophylaxis - INR of 1.6 Prognosis very poor Comment Review of Relevant I have reviewed the following items pierre (where applicable) has been applied. Medications: Current Medications Medications (Trade) Dose Ordered Sig/Amrik Route PRN Reason Start Time Stop Time Status Last Admin Dose Admin Iohexol (Omnipaque 240 Mg/ml) 30 ml 1X ONCE PO 01/04/19 15:15 01/04/19 15:17 DC 01/04/19 15:15 Iohexol (Omnipaque 300 Mg/ml) 75 ml 1X ONCE IV 01/04/19 15:15 01/04/19 15:17 DC 01/04/19 16:20 Multivitamins 10 ml/Thiamine HCl 100 mg/Folic Acid 1 mg/Sodium Chloride 1,011.2 ml @ 100 mls/ hr DAILY IV 01/04/19 18:00 01/08/19 19:07 01/05/19 09:14 Chlordiazepoxide (Librium) 50 mg PRN Q1HR PRN PO For CIWA 8-14 01/04/19 17:45 01/04/19 18:17 Chlordiazepoxide (Librium) 100 mg PRN Q1HR PRN PO For CIWA 15 or greater 01/04/19 17:45 01/05/19 06:27 Lorazepam (Ativan) 4 mg PRN Q1HR PRN PO For CIWA 8-14 01/04/19 17:45 01/04/19 18:17 Lorazepam (Ativan Inj) 2 mg PRN Q1HR PRN IV For CIWA 8-14 01/04/19 19:15 01/04/19 21:08 Lorazepam (Ativan Inj) 4 mg PRN Q1HR PRN IV For CIWA 15 or greater 01/04/19 19:15 01/05/19 06:28 Ondansetron HCl (Zofran) 4 mg PRN Q6HRS PRN IV NAUSEA/VOMITING 01/04/19 19:30 01/04/19 19:34 SACHIN TRAN III DO Jan 05, 2019 12:20
[2019-01-05 15:00] VITALS: BP 92/72
[2019-01-05 19:00] VITALS: BP 118/80
[2019-01-05 23:00] VITALS: BP 102/81
[2019-01-06] VITALS (26 sets, daily range): BP systolic 79–116; BP diastolic 42–73
[2019-01-06 06:06] LABS: ALBUMIN 1.7 g/dL (3.4-5.0); ALBUMIN/GLOBULIN RATIO 0.5 (1.0-1.7); CALCIUM 7.5 mg/dL (8.5-10.1); CREATININE 1.1 mg/dL (0.7-1.3); GFR 72.7; POTASSIUM 4.3 mmol/L (3.5-5.1); TOTAL BILIRUBIN 10.3 mg/dL (0.2-1.0); TOTAL PROTEIN 5.1 g/dL (6.4-8.2)
[2019-01-06] MEDS: MULTIVIT INFUSN,ADULT 4,VIT K 10 ML, THIAMINE INJ 100 MG, FOLIC ACID INJ 1 MG in IV NOR... IV SCH (08:18)
[2019-01-06 08:33] LABS: BASO % 0 % (0-3); EOS % 0 % (0-3); LYMPH # 0.9 x10^3/uL (1.0-4.8); LYMPH % 8 % (24-48); MEAN CORPUSCULAR HEMOGLOBIN 37 pg (25-35); MEAN CORPUSCULAR HGB CONC 33 g/dL (31-37); MEAN CORPUSCULAR VOLUME 111 fL (79-100); MONO # 0.6 x10^3/uL (0.0-1.1); MONO % 5 % (0-9); NEUT # 10.1 x10^3/uL (1.8-7.7); NEUT % 87 % (31-73); PLATELET COUNT 110 x10^3/uL (140-400); RED BLOOD COUNT 1.78 x10^6/uL (4.30-5.70); RED CELL DISTRIBUTION WIDTH 16.9 % (11.5-14.5); WHITE BLOOD COUNT 11.6 x10^3/uL (4.0-11.0)
[2019-01-06 08:43] LABS: PROTHROMBIN TIME PATIENT 30.6 SEC (11.7-14.0)
[2019-01-06 08:56] LABS: HEMATOCRIT 19.9 % (39.0-53.0); HEMOGLOBIN 6.6 g/dL (13.0-17.5)
[2019-01-06 09:36] LABS: BASE EXCESS ABG -9 mmol/L (-3-3); HCO3 ABG 14 mmol/L (21-28); PO2 ABG 76 mmHg (75-108); SAT O2 ABG 94 % (92-99)
[2019-01-06 09:52] LABS: FIO2 ABG 21; PCO2 ABG 19 mmHg (35-46)
[2019-01-06] MEDS ORDERED: PANTOPRAZOLE IV PUSH 40 MG VIAL. IVP SCH (10:00)
--- NOTE | 2019-01-06 10:00 | NUR ---
Rapid response called to room 534 at 0913. Upon arrival to pt room nursing utilization supervisor there, RN and nurse aid. Pt is unresponsive to deep sternal rub or nail bed pressure and has sonorous respirations. VS stable at this time. Gemma MAYO notified Dr. Frias of pt condition and orders received to transfer to the ICU. Pt brought to room 104 via bed with belongings. Jennifer notified of transfer and pt condition.
--- NOTE | 2019-01-06 10:01 | NUR ---
See critical lab documentation. Dr. Frias notified of critical Hgb. and RR called at 0910 r/t patient unresponsiveness. See assessment. Francisca RN nursing tar distillation supervisor and Alexandrea BORDER MACHINE OPERATOR to room 0915. Patient BP 106/56 P 127 RR 24 O2 sat. 95% on room air. This RN was given report that patient not eating or drinking yesterday and confused and MD aware. Reports was that patient turned and moved self through night, but patient not moving or reponsive when this RN came on duty, moaning respirations. Dr. Frias notified with orders to move to ICU and transfuse two units packed red blood cells, patient's Jennifer notified of condition change, need for transfusion and move to ICU for closer monitoring with condition change. She verb. understanding and phone consent obtained with two RN's. Patient moved to ICU room 104 with all belongings and chart at 0945 per bed with Alexandrea BORDER MACHINE OPERATOR. report was given to Alexandrea BORDER MACHINE OPERATOR prior to move on [address].
--- NOTE | 2019-01-06 10:09 | PDOC ---
PROGRESS NOTES Chief Complaint Chief Complaint Problems: (1) Jaundice (2) Alcoholic liver disease (3) Pancreatitis (4) Thrombocytopenia Chief Complaint: Bruising and jaundice Assessment: Bruising and jaundice severe alcohol abuse Thrombocytopenia. , most likely secondary to his liver disease and cirrhosis, Irregular wall thickening of the cecum and ascending colon with surrounding inflammatory type change and fluid. This is most compatible with severe colitis, could be of ischemic, infectious or inflammatory etiology. Colonic neoplasm not excludable. Milder colitis involving the remaining colon. Mild gallbladder distention with wall thickening and pericholecystic fluid, concerning for cholecystitis. Mild abdominal and pelvic ascites Mild wall thickening of the distal esophagus. Mild wall thickening of the duodenum. No significant small bowel distention. Plan: Consulted palliative care - Consulted hematology - thrombocytopenia likely due to liver disease, INR 1.6 Frequent labs - CBC and CMP CIWA protocol Continue home meds PT/OT Hold DVT prophylaxis - INR of 1.6 Prognosis very poor GI consulted Transfusing 2 units prbc and given vit k AFP iordered. Haptoglobin ordered. 37 min cc time History of Present Illness History of Present Illness Patient was seen and examined He was resting comfortably and in no acute distress Vitals Vitals Vital Signs Date Time Temp Pulse Resp B/P (MAP) Pulse Ox O2 Delivery O2 Flow Rate FiO2 01/06/19 08:00 Room Air 01/06/19 07:00 99.1 126 20 99/58 (72) 94 99.1 Physical Exam General: Cooperative, No acute distress, Other (resting comfortably) Heart: Regular rate, Normal S1, Normal S2 Lungs: Clear, Other (symmetrical chest expansion on respiration) Abdomen: Normal bowel sounds, Soft, No tenderness Extremities: No clubbing, No cyanosis, Other (ecchymoses on arms and legs) Skin: No rashes, No breakdown Labs LABS Examination: Frontal view of the abdomen HISTORY: History of NG tube placement COMPARISON: None available Findings/ impression: Feeding tube is identified below the diaphragm likely in the distal stomach or first part of duodenum. Few air distended small bowel loops identified in the abdomen. Electronically signed by: Aric Ko MD (01/06/2019 12:12 PM) [facility] CT ABD PELV W/ORAL IV CONTRAST Indication: Jaundice. Abnormal labs. Bruising. Exposure: One or more of the following individualized dose reduction techniques were utilized for this examination: 1. Automated exposure control 2. Adjustment of the mA and/or kV according to patient size 3. Use of iterative reconstruction technique. Technique: Intravenous contrast was given. Oral contrast was given. Comparison prior sent: None FINDINGS: Small left pleural effusion. Trace right pleural effusion. Mild atelectasis/infiltrate in the lung bases. Liver demonstrates a slightly nodular contour. The right lobe of liver is slightly small, with mild relative hypertrophy of the caudate and left lobe. Ill-defined hypoattenuation with some mass effect at lateral aspect of the caudate lobe, measuring about 5 cm, possibly due to a mass in the liver. Spleen is nonenlarged. Pancreas unremarkable. No evidence of adrenal mass. Kidneys demonstrate symmetric enhancement without evidence of mass or hydronephrosis. Gallbladder wall thickening with mild pericholecystic fluid. Gallbladder is mildly distended. No calcified stone. Aorta is mildly calcified without evidence of aneurysm. No significant lymph node enlargement. Mild wall thickening of the distal esophagus. Mild wall thickening of the duodenum. No significant small bowel distention. There is progressive dilution of the contrast column in the distal small bowel. Mild wall thickening of the descending colon and sigmoid colon. Mild wall thickening of the transverse colon. Moderate to severe wall thickening of the cecum and ascending colon. There is inflammatory type stranding around the colon, greatest at the cecum and ascending colon where there is also fascial thickening. No evidence of pneumoperitoneum. There is also inflammatory type stranding and fascial thickening in the left peritoneum and anterior pararenal fascia. Diffuse mesenteric stranding. Mild pelvic ascites. There is mild ascites in the right abdomen, perihepatic and in the right paracolic gutter. This overall measures simple density characteristics. The urinary bladder is not adequately distended for evaluation. Degenerative spondylosis is identified. IMPRESSION: 1. Irregular wall thickening of the cecum and ascending colon with surrounding inflammatory type change and fluid. This is most compatible with a severe colitis, could be of ischemic, infectious or inflammatory etiology. Colonic neoplasm not excludable. Milder colitis involving the remaining colon. 2. Mild gallbladder distention with wall thickening and pericholecystic fluid, concerning for cholecystitis. 3. Mild abdominal and pelvic ascites with generalized peritoneal and retroperitoneal inflammatory type stranding and fascial thickening, greatest in the region of the right colon. 4. Liver morphology suggests cirrhosis. 5. There is a 5 cm region of relative hypoattenuation at the base of the caudate lobe, concerning for a hepatic neoplasm. MRI of the liver could further evaluate. 6. Wall thickening of the distal visualized esophagus and duodenum, consider inflammatory or infectious esophagitis and duodenitis. Duodenal ulcer disease could also be considered. 7. Progressive dilution of the distal small bowel contrast column, may be due to ileus or functional obstruction from the colonic pathology discussed above. 8. Findings were discussed with Dr. Perez in the emergency room at the time of this interpretation. Electronically signed by: Floyd Bocanegra MD (01/04/2019 5:00 PM) [facility] DICTATED and SIGNED BY: FLOYD BOCANEGRA MD DATE: 01/04/19 1700 Laboratory Tests Test 01/06/19 05:00 01/06/19 08:05 01/06/19 09:30 Sodium Level 143 mmol/L (136-145) Potassium Level 4.3 mmol/L (3.5-5.1) Chloride Level 108 mmol/L (98-107) Carbon Dioxide Level 15 mmol/L (21-32) Anion Gap 20 (6-14) Blood Urea Nitrogen 35 mg/dL (8-26) Creatinine 1.1 mg/dL (0.7-1.3) Estimated GFR (Cockcroft-Gault) 72.7 BUN/Creatinine Ratio 32 (6-20) Glucose Level 114 mg/dL (70-99) Calcium Level 7.5 mg/dL (8.5-10.1) Total Bilirubin 10.3 mg/dL (0.2-1.0) Aspartate Amino Transf (AST/SGOT) 156 U/L (15-37) Alanine Aminotransferase (ALT/SGPT) 81 U/L (16-63) Alkaline Phosphatase 107 U/L (46-116) Total Protein 5.1 g/dL (6.4-8.2) Albumin 1.7 g/dL (3.4-5.0) Albumin/Globulin Ratio 0.5 (1.0-1.7) White Blood Count 11.6 x10^3/uL (4.0-11.0) Red Blood Count 1.78 x10^6/uL (4.30-5.70) Hemoglobin 6.6 g/dL (13.0-17.5) Hematocrit 19.9 % (39.0-53.0) Mean Corpuscular Volume 111 fL (79-100) Mean Corpuscular Hemoglobin 37 pg (25-35) Mean Corpuscular Hemoglobin Concent 33 g/dL (31-37) Red Cell Distribution Width 16.9 % (11.5-14.5) Platelet Count 110 x10^3/uL (140-400) Neutrophils (%) (Auto) 87 % (31-73) Lymphocytes (%) (Auto) 8 % (24-48) Monocytes (%) (Auto) 5 % (0-9) Eosinophils (%) (Auto) 0 % (0-3) Basophils (%) (Auto) 0 % (0-3) Neutrophils # (Auto) 10.1 x10^3/uL (1.8-7.7) Lymphocytes # (Auto) 0.9 x10^3/uL (1.0-4.8) Monocytes # (Auto) 0.6 x10^3/uL (0.0-1.1) Eosinophils # (Auto) 0.0 x10^3/uL (0.0-0.7) Basophils # (Auto) 0.0 x10^3/uL (0.0-0.2) Prothrombin Time 30.6 SEC (11.7-14.0) Prothromb Time International Ratio 2.9 (0.8-1.1) O2 Saturation 94 % (92-99) Arterial Blood pH 7.47 (7.35-7.45) Arterial Blood pCO2 at Patient Temp 19 mmHg (35-46) Arterial Blood pO2 at Patient Temp 76 mmHg (75-108) Arterial Blood HCO3 14 mmol/L (21-28) Arterial Blood Base Excess -9 mmol/L (-3-3) FiO2 21 Assessment and Plan Assessmemt and Plan Problems Medical Problems: (1) Alcoholic liver disease Status: Acute (2) Cholelithiasis Status: Acute (3) Colitis Status: Acute (4) Jaundice Status: Acute (5) Pancreatitis Status: Acute (6) Thrombocytopenia Status: Acute Comment Review of Relevant I have reviewed the following items pierre (where applicable) has been applied. Labs Laboratory Tests Test 01/04/19 13:38 01/04/19 14:05 01/06/19 05:00 01/06/19 08:05 White Blood Count 5.7 x10^3/uL (4.0-11.0) 11.6 x10^3/uL (4.0-11.0) Red Blood Count 3.02 x10^6/uL (4.30-5.70) 1.78 x10^6/uL (4.30-5.70) Hemoglobin 11.2 g/dL (13.0-17.5) 6.6 g/dL (13.0-17.5) Hematocrit 31.8 % (39.0-53.0) 19.9 % (39.0-53.0) Mean Corpuscular Volume 105 fL (79-100) 111 fL (79-100) Mean Corpuscular Hemoglobin 37 pg (25-35) 37 pg (25-35) Mean Corpuscular Hemoglobin Concent 35 g/dL (31-37) 33 g/dL (31-37) Red Cell Distribution Width 15.5 % (11.5-14.5) 16.9 % (11.5-14.5) Platelet Count 78 x10^3/uL (140-400) 110 x10^3/uL (140-400) Neutrophils (%) (Auto) 75 % (31-73) 87 % (31-73) Lymphocytes (%) (Auto) 13 % (24-48) 8 % (24-48) Monocytes (%) (Auto) 10 % (0-9) 5 % (0-9) Eosinophils (%) (Auto) 1 % (0-3) 0 % (0-3) Basophils (%) (Auto) 1 % (0-3) 0 % (0-3) Neutrophils # (Auto) 4.3 x10^3/uL (1.8-7.7) 10.1 x10^3/uL (1.8-7.7) Lymphocytes # (Auto) 0.8 x10^3/uL (1.0-4.8) 0.9 x10^3/uL (1.0-4.8) Monocytes # (Auto) 0.6 x10^3/uL (0.0-1.1) 0.6 x10^3/uL (0.0-1.1) Eosinophils # (Auto) 0.1 x10^3/uL (0.0-0.7) 0.0 x10^3/uL (0.0-0.7) Basophils # (Auto) 0.0 x10^3/uL (0.0-0.2) 0.0 x10^3/uL (0.0-0.2) Segmented Neutrophils % 70 % (35-66) Band Neutrophils % 3 % (0-9) Lymphocytes % 14 % (24-48) Monocytes % 9 % (0-10) Eosinophils % 2 % (0-5) Basophils % 2 % (0-3) Platelet Estimate Decreased (ADEQUATE) Macrocytosis Mod Prothrombin Time 18.3 SEC (11.7-14.0) 30.6 SEC (11.7-14.0) Prothromb Time International Ratio 1.6 (0.8-1.1) 2.9 (0.8-1.1) Sodium Level 136 mmol/L (136-145) 143 mmol/L (136-145) Potassium Level 3.3 mmol/L (3.5-5.1) 4.3 mmol/L (3.5-5.1) Chloride Level 99 mmol/L (98-107) 108 mmol/L (98-107) Carbon Dioxide Level 26 mmol/L (21-32) 15 mmol/L (21-32) Anion Gap 11 (6-14) 20 (6-14) Blood Urea Nitrogen 10 mg/dL (8-26) 35 mg/dL (8-26) Creatinine 0.7 mg/dL (0.7-1.3) 1.1 mg/dL (0.7-1.3) Estimated GFR (Cockcroft-Gault) 122.5 72.7 BUN/Creatinine Ratio 14 (6-20) 32 (6-20) Glucose Level 101 mg/dL (70-99) 114 mg/dL (70-99) Calcium Level 7.6 mg/dL (8.5-10.1) 7.5 mg/dL (8.5-10.1) Total Bilirubin 9.0 mg/dL (0.2-1.0) 10.3 mg/dL (0.2-1.0) Aspartate Amino Transf (AST/SGOT) 155 U/L (15-37) 156 U/L (15-37) Alanine Aminotransferase (ALT/SGPT) 67 U/L (16-63) 81 U/L (16-63) Alkaline Phosphatase 147 U/L (46-116) 107 U/L (46-116) Total Protein 7.1 g/dL (6.4-8.2) 5.1 g/dL (6.4-8.2) Albumin 2.5 g/dL (3.4-5.0) 1.7 g/dL (3.4-5.0) Albumin/Globulin Ratio 0.5 (1.0-1.7) 0.5 (1.0-1.7) Lipase 3468 U/L (73-393) Ethyl Alcohol Level 68 mg/dL (0-10) Urine Collection Type Void Urine Color Wirt Urine Clarity Clear Urine pH 8.0 Urine Specific [place] 1.020 Urine Protein 100 mg/dL (NEG-TRACE) Urine Glucose (UA) Negative mg/dL (NEG) Urine Ketones (Stick) Trace mg/dL (NEG) Urine Blood Negative (NEG) Urine Nitrite Negative (NEG) Urine Bilirubin Large (NEG) Urine Urobilinogen Dipstick 1.0 mg/dL (0.2 mg/dL) Urine Leukocyte Esterase Small (NEG) Urine RBC Occ /HPF (0-2) Urine WBC Rare /HPF (0-4) Urine Squamous Epithelial Cells Few /LPF Urine Bacteria 0 /HPF (0-FEW) Urine Opiates Screen Neg (NEG) Urine Methadone Screen Neg (NEG) Urine Barbiturates Neg (NEG) Urine Phencyclidine Screen Neg (NEG) Urine Amphetamine/Methamphetamine Neg (NEG) Urine Benzodiazepines Screen Neg (NEG) Urine Cocaine Screen Neg (NEG) Urine Cannabinoids Screen Neg (NEG) Urine Ethyl Alcohol Pos (NEG) Test 01/06/19 09:30 O2 Saturation 94 % (92-99) Arterial Blood pH 7.47 (7.35-7.45) Arterial Blood pCO2 at Patient Temp 19 mmHg (35-46) Arterial Blood pO2 at Patient Temp 76 mmHg (75-108) Arterial Blood HCO3 14 mmol/L (21-28) Arterial Blood Base Excess -9 mmol/L (-3-3) FiO2 21 Laboratory Tests Test 01/06/19 05:00 01/06/19 08:05 01/06/19 09:30 Sodium Level 143 mmol/L (136-145) Potassium Level 4.3 mmol/L (3.5-5.1) Chloride Level 108 mmol/L (98-107) Carbon Dioxide Level 15 mmol/L (21-32) Anion Gap 20 (6-14) Blood Urea Nitrogen 35 mg/dL (8-26) Creatinine 1.1 mg/dL (0.7-1.3) Estimated GFR (Cockcroft-Gault) 72.7 BUN/Creatinine Ratio 32 (6-20) Glucose Level 114 mg/dL (70-99) Calcium Level 7.5 mg/dL (8.5-10.1) Total Bilirubin 10.3 mg/dL (0.2-1.0) Aspartate Amino Transf (AST/SGOT) 156 U/L (15-37) Alanine Aminotransferase (ALT/SGPT) 81 U/L (16-63) Alkaline Phosphatase 107 U/L (46-116) Total Protein 5.1 g/dL (6.4-8.2) Albumin 1.7 g/dL (3.4-5.0) Albumin/Globulin Ratio 0.5 (1.0-1.7) White Blood Count 11.6 x10^3/uL (4.0-11.0) Red Blood Count 1.78 x10^6/uL (4.30-5.70) Hemoglobin 6.6 g/dL (13.0-17.5) Hematocrit 19.9 % (39.0-53.0) Mean Corpuscular Volume 111 fL (79-100) Mean Corpuscular Hemoglobin 37 pg (25-35) Mean Corpuscular Hemoglobin Concent 33 g/dL (31-37) Red Cell Distribution Width 16.9 % (11.5-14.5) Platelet Count 110 x10^3/uL (140-400) Neutrophils (%) (Auto) 87 % (31-73) Lymphocytes (%) (Auto) 8 % (24-48) Monocytes (%) (Auto) 5 % (0-9) Eosinophils (%) (Auto) 0 % (0-3) Basophils (%) (Auto) 0 % (0-3) Neutrophils # (Auto) 10.1 x10^3/uL (1.8-7.7) Lymphocytes # (Auto) 0.9 x10^3/uL (1.0-4.8) Monocytes # (Auto) 0.6 x10^3/uL (0.0-1.1) Eosinophils # (Auto) 0.0 x10^3/uL (0.0-0.7) Basophils # (Auto) 0.0 x10^3/uL (0.0-0.2) Prothrombin Time 30.6 SEC (11.7-14.0) Prothromb Time International Ratio 2.9 (0.8-1.1) O2 Saturation 94 % (92-99) Arterial Blood pH 7.47 (7.35-7.45) Arterial Blood pCO2 at Patient Temp 19 mmHg (35-46) Arterial Blood pO2 at Patient Temp 76 mmHg (75-108) Arterial Blood HCO3 14 mmol/L (21-28) Arterial Blood Base Excess -9 mmol/L (-3-3) FiO2 21 Medications Current Medications Iohexol (Omnipaque 240 Mg/ml) 30 ml 1X ONCE PO Last administered on 01/04/19at 15:15; Start 01/04/19 at 15:15; Stop 01/04/19 at 15:17; Status DC Iohexol (Omnipaque 300 Mg/ml) 75 ml 1X ONCE IV Last administered on 01/04/19at 16:20; Start 01/04/19 at 15:15; Stop 01/04/19 at 15:17; Status DC Info (CONTRAST GIVEN -- Rx MONITORING) 1 each PRN DAILY PRN MC SEE COMMENTS; Start 01/04/19 at 15:30; Stop 01/06/19 at 15:29 Multivitamins 10 ml/Thiamine HCl 100 mg/Folic Acid 1 mg/Sodium Chloride 1,011.2 ml @ 100 mls/ hr DAILY IV Last administered on 01/06/19at 08:18; Start 01/04/19 at 18:00; Stop 01/08/19 at 19:07 Chlordiazepoxide (Librium) 50 mg PRN Q1HR PRN PO For CIWA 8-14 Last administered on 01/04/19 18:17; Start 01/04/19 at 17:45 Chlordiazepoxide (Librium) 100 mg PRN Q1HR PRN PO For CIWA 15 or greater Last administered on 01/05/19at 06:27; Start 01/04/19 at 17:45 Lorazepam (Ativan) 4 mg PRN Q1HR PRN PO For CIWA 8-14 Last administered on 01/04/19at 18:17; Start 01/04/19 at 17:45 Lorazepam (Ativan) 8 mg PRN Q1HR PRN PO For CIWA 15 or greater; Start 01/04/19 at 17:45 Haloperidol Lactate (Haldol Inj) 5 mg PRN Q4HRS PRN IVP Hallucinatns,Confusn,Delirium; Start 01/04/19 at 17:45 Diphenhydramine HCl (Benadryl) 25 mg PRN Q15MIN PRN IVP EPS symptoms 2'Haldol admin; Start 01/04/19 at 17:45 Clonidine HCl (Catapres) 0.1 mg PRN Q1HR PRN PO SBP > 180 or DBP > 100, MRX3; Start 01/04/19 at 17:45 Lorazepam (Ativan Inj) 2 mg PRN Q1HR PRN IV For CIWA 8-14 Last administered on 01/04/19at 21:08; Start 01/04/19 at 19:15 Lorazepam (Ativan Inj) 4 mg PRN Q1HR PRN IV For CIWA 15 or greater Last adminis tered on 01/05/19at 06:28; Start 01/04/19 at 19:15 Lorazepam (Ativan Inj) 2 mg PRN Q15MIN PRN IV SEE COMMENTS; Start 01/04/19 at 19:15; Status UNV Lorazepam (Ativan Inj) 4 mg PRN Q15MIN PRN IV SEE COMMENTS; Start 01/04/19 at 19:15; Status UNV Ondansetron HCl (Zofran) 4 mg PRN Q6HRS PRN IV NAUSEA/VOMITING Last administered on 01/04/19at 19:34; Start 01/04/19 at 19:30 Pantoprazole Sodium (PROTONIX VIAL for IV PUSH) 40 mg DAILYAC IVP ; Start 01/06/19 at 10:00 Active Scripts Active Reported Omeprazole 40 Mg Capsule.dr 1 Cap PO DAILY Vitals/I & O Vital Sign - Last 24 Hours 01/05/19 01/05/19 01/05/19 01/05/19 11:00 15:00 19:00 20:00 Temp 98.3 97.7 98.0 98.3 97.7 98.0 Pulse 118 120 132 Resp 20 20 20 B/P (MAP) 97/70 (79) 92/72 (79) 118/80 (93) Pulse Ox 91 93 91 O2 Delivery Room Air Room Air Room Air Room Air 01/05/19 01/06/19 01/06/19 01/06/19 23:00 03:00 07:00 08:00 Temp 98.4 98.7 99.1 98.4 98.7 99.1 Pulse 135 137 126 Resp 20 20 20 B/P (MAP) 102/81 (88) 106/73 (84) 99/58 (72) Pulse Ox 97 96 94 O2 Delivery Room Air Room Air Room Air Room Air Intake and Output 01/05/19 01/05/19 01/06/19 14:59 22:59 06:59 Intake Total 0 ml Balance 0 ml DANG OWUSU MD Jan 06, 2019 10:09
[2019-01-06] MEDS ORDERED: PHYTONADIONE 10 MG/ML AMPUL. SQ ONE (10:15)
[2019-01-06] MEDS ORDERED: PIP/TAZO PER PHARMACY MC PRN (10:30)
--- NOTE | 2019-01-06 10:30 | NUR ---
Dr. Frias here to see pt, spoke with regarding code status. Family decided to keep pt a full code and to do everything at this time. All new labs relayed to Dr. Frias and new orders received.
[2019-01-06 10:55] LABS: PROTHROMBIN TIME PATIENT 31.3 SEC (11.7-14.0)
--- NOTE | 2019-01-06 11:00 | NUR ---
18 Telugu NG placed to right nare for lactulose administrations.
[2019-01-06 11:07] LABS: D-DIMER 3.88 ug/mlFEU (0.00-0.50)
--- NOTE | 2019-01-06 11:36 | PDOC ---
PROGRESS NOTES Subjective Subjective -Pt currently transferred to ICU -Transfusing 2 units prbc and given vit k Family at bedside Objective Objective Vital Signs Date Time Temp Pulse Resp B/P (MAP) Pulse Ox O2 Delivery O2 Flow Rate FiO2 01/06/19 10:45 98.3 120 25 92/49 98.3 01/06/19 08:00 Room Air 01/06/19 07:00 94 Intake and Output 01/06/19 07:00 Intake Total 0 ml Balance 0 ml Intake Oral 0 ml # Voids 6 Physical Exam Physical Exam Gen: Obtunded, jaundiced Abdomen: Other (hepatomegaly) Extremities: Other (ecchymoses on extremities) Lungs: Clear to auscultation Neck: Supple Neuro: Other (encephalopathic) Assessment Assessment Problems Medical Problems: (1) Alcoholic liver disease Status: Acute (2) Cholelithiasis Status: Acute (3) Colitis Status: Acute (4) Jaundice Status: Acute (5) Pancreatitis Status: Acute (6) Thrombocytopenia Status: Acute Plan Plan of Care 1. Thrombocytopenia. Secondary to liver dysfunction. Improved a little from admission 2. Coagulopathy from liver failure. Given vit k 3. ?hepatic mass. If he improves would eventually get an MRI to further evaluate, but if not would not pursue 4. Liver failure. Most likely secondary to etoh 5. Colitis. On abx as per primary team Comment Review of Relevant I have reviewed the following items pierre (where applicable) has been applied. Labs Laboratory Tests Test 01/04/19 13:38 01/04/19 14:05 01/06/19 05:00 01/06/19 08:05 White Blood Count 5.7 x10^3/uL (4.0-11.0) 11.6 x10^3/uL (4.0-11.0) Red Blood Count 3.02 x10^6/uL (4.30-5.70) 1.78 x10^6/uL (4.30-5.70) Hemoglobin 11.2 g/dL (13.0-17.5) 6.6 g/dL (13.0-17.5) Hematocrit 31.8 % (39.0-53.0) 19.9 % (39.0-53.0) Mean Corpuscular Volume 105 fL (79-100) 111 fL (79-100) Mean Corpuscular Hemoglobin 37 pg (25-35) 37 pg (25-35) Mean Corpuscular Hemoglobin Concent 35 g/dL (31-37) 33 g/dL (31-37) Red Cell Distribution Width 15.5 % (11.5-14.5) 16.9 % (11.5-14.5) Platelet Count 78 x10^3/uL (140-400) 105 x10^3/uL (140-400) Neutrophils (%) (Auto) 75 % (31-73) 87 % (31-73) Lymphocytes (%) (Auto) 13 % (24-48) 8 % (24-48) Monocytes (%) (Auto) 10 % (0-9) 5 % (0-9) Eosinophils (%) (Auto) 1 % (0-3) 0 % (0-3) Basophils (%) (Auto) 1 % (0-3) 0 % (0-3) Neutrophils # (Auto) 4.3 x10^3/uL (1.8-7.7) 10.1 x10^3/uL (1.8-7.7) Lymphocytes # (Auto) 0.8 x10^3/uL (1.0-4.8) 0.9 x10^3/uL (1.0-4.8) Monocytes # (Auto) 0.6 x10^3/uL (0.0-1.1) 0.6 x10^3/uL (0.0-1.1) Eosinophils # (Auto) 0.1 x10^3/uL (0.0-0.7) 0.0 x10^3/uL (0.0-0.7) Basophils # (Auto) 0.0 x10^3/uL (0.0-0.2) 0.0 x10^3/uL (0.0-0.2) Segmented Neutrophils % 70 % (35-66) Band Neutrophils % 3 % (0-9) Lymphocytes % 14 % (24-48) Monocytes % 9 % (0-10) Eosinophils % 2 % (0-5) Basophils % 2 % (0-3) Platelet Estimate Decreased (ADEQUATE) Macrocytosis Mod Prothrombin Time 18.3 SEC (11.7-14.0) 31.3 SEC (11.7-14.0) Prothromb Time International Ratio 1.6 (0.8-1.1) 3.0 (0.8-1.1) Sodium Level 136 mmol/L (136-145) 143 mmol/L (136-145) Potassium Level 3.3 mmol/L (3.5-5.1) 4.3 mmol/L (3.5-5.1) Chloride Level 99 mmol/L (98-107) 108 mmol/L (98-107) Carbon Dioxide Level 26 mmol/L (21-32) 15 mmol/L (21-32) Anion Gap 11 (6-14) 20 (6-14) Blood Urea Nitrogen 10 mg/dL (8-26) 35 mg/dL (8-26) Creatinine 0.7 mg/dL (0.7-1.3) 1.1 mg/dL (0.7-1.3) Estimated GFR (Cockcroft-Gault) 122.5 72.7 BUN/Creatinine Ratio 14 (6-20) 32 (6-20) Glucose Level 101 mg/dL (70-99) 114 mg/dL (70-99) Calcium Level 7.6 mg/dL (8.5-10.1) 7.5 mg/dL (8.5-10.1) Total Bilirubin 9.0 mg/dL (0.2-1.0) 10.3 mg/dL (0.2-1.0) Aspartate Amino Transf (AST/SGOT) 155 U/L (15-37) 156 U/L (15-37) Alanine Aminotransferase (ALT/SGPT) 67 U/L (16-63) 81 U/L (16-63) Alkaline Phosphatase 147 U/L (46-116) 107 U/L (46-116) Total Protein 7.1 g/dL (6.4-8.2) 5.1 g/dL (6.4-8.2) Albumin 2.5 g/dL (3.4-5.0) 1.7 g/dL (3.4-5.0) Albumin/Globulin Ratio 0.5 (1.0-1.7) 0.5 (1.0-1.7) Lipase 3468 U/L (73-393) Ethyl Alcohol Level 68 mg/dL (0-10) Urine Collection Type Void Urine Color [place] Urine Clarity Clear Urine pH 8.0 Urine Specific [place] 1.020 Urine Protein 100 mg/dL (NEG-TRACE) Urine Glucose (UA) Negative mg/dL (NEG) Urine Ketones (Stick) Trace mg/dL (NEG) Urine Blood Negative (NEG) Urine Nitrite Negative (NEG) Urine Bilirubin Large (NEG) Urine Urobilinogen Dipstick 1.0 mg/dL (0.2 mg/dL) Urine Leukocyte Esterase Small (NEG) Urine RBC Occ /HPF (0-2) Urine WBC Rare /HPF (0-4) Urine Squamous Epithelial Cells Few /LPF Urine Bacteria 0 /HPF (0-FEW) Urine Opiates Screen Neg (NEG) Urine Methadone Screen Neg (NEG) Urine Barbiturates Neg (NEG) Urine Phencyclidine Screen Neg (NEG) Urine Amphetamine/Methamphetamine Neg (NEG) Urine Benzodiazepines Screen Neg (NEG) Urine Cocaine Screen Neg (NEG) Urine Cannabinoids Screen Neg (NEG) Urine Ethyl Alcohol Pos (NEG) Activated Partial Thromboplast Time 38 SEC (24-38) Fibrinogen 170 mg/dL (200-440) D-Dimer (Laisha) 3.88 ug/mlFEU (0.00-0.50) Test 01/06/19 09:30 01/06/19 10:10 O2 Saturation 94 % (92-99) Arterial Blood pH 7.47 (7.35-7.45) Arterial Blood pCO2 at Patient Temp 19 mmHg (35-46) Arterial Blood pO2 at Patient Temp 76 mmHg (75-108) Arterial Blood HCO3 14 mmol/L (21-28) Arterial Blood Base Excess -9 mmol/L (-3-3) FiO2 21 Lactic Acid Level 14.9 mmol/L (0.4-2.0) Ammonia 209 mcmol/L (11-34) Laboratory Tests Test 01/06/19 05:00 01/06/19 08:05 01/06/19 09:30 01/06/19 10:10 Sodium Level 143 mmol/L (136-145) Potassium Level 4.3 mmol/L (3.5-5.1) Chloride Level 108 mmol/L (98-107) Carbon Dioxide Level 15 mmol/L (21-32) Anion Gap 20 (6-14) Blood Urea Nitrogen 35 mg/dL (8-26) Creatinine 1.1 mg/dL (0.7-1.3) Estimated GFR (Cockcroft-Gault) 72.7 BUN/Creatinine Ratio 32 (6-20) Glucose Level 114 mg/dL (70-99) Calcium Level 7.5 mg/dL (8.5-10.1) Total Bilirubin 10.3 mg/dL (0.2-1.0) Aspartate Amino Transf (AST/SGOT) 156 U/L (15-37) Alanine Aminotransferase (ALT/SGPT) 81 U/L (16-63) Alkaline Phosphatase 107 U/L (46-116) Total Protein 5.1 g/dL (6.4-8.2) Albumin 1.7 g/dL (3.4-5.0) Albumin/Globulin Ratio 0.5 (1.0-1.7) White Blood Count 11.6 x10^3/uL (4.0-11.0) Red Blood Count 1.78 x10^6/uL (4.30-5.70) Hemoglobin 6.6 g/dL (13.0-17.5) Hematocrit 19.9 % (39.0-53.0) Mean Corpuscular Volume 111 fL (79-100) Mean Corpuscular Hemoglobin 37 pg (25-35) Mean Corpuscular Hemoglobin Concent 33 g/dL (31-37) Red Cell Distribution Width 16.9 % (11.5-14.5) Platelet Count 105 x10^3/uL (140-400) Neutrophils (%) (Auto) 87 % (31-73) Lymphocytes (%) (Auto) 8 % (24-48) Monocytes (%) (Auto) 5 % (0-9) Eosinophils (%) (Auto) 0 % (0-3) Basophils (%) (Auto) 0 % (0-3) Neutrophils # (Auto) 10.1 x10^3/uL (1.8-7.7) Lymphocytes # (Auto) 0.9 x10^3/uL (1.0-4.8) Monocytes # (Auto) 0.6 x10^3/uL (0.0-1.1) Eosinophils # (Auto) 0.0 x10^3/uL (0.0-0.7) Basophils # (Auto) 0.0 x10^3/uL (0.0-0.2) Prothrombin Time 31.3 SEC (11.7-14.0) Prothromb Time International Ratio 3.0 (0.8-1.1) Activated Partial Thromboplast Time 38 SEC (24-38) Fibrinogen 170 mg/dL (200-440) D-Dimer (Laisha) 3.88 ug/mlFEU (0.00-0.50) O2 Saturation 94 % (92-99) Arterial Blood pH 7.47 (7.35-7.45) Arterial Blood pCO2 at Patient Temp 19 mmHg (35-46) Arterial Blood pO2 at Patient Temp 76 mmHg (75-108) Arterial Blood HCO3 14 mmol/L (21-28) Arterial Blood Base Excess -9 mmol/L (-3-3) FiO2 21 Lactic Acid Level 14.9 mmol/L (0.4-2.0) Ammonia 209 mcmol/L (11-34) Medications Current Medications Iohexol (Omnipaque 240 Mg/ml) 30 ml 1X ONCE PO Last administered on 01/04/19at 15:15; Start 01/04/19 at 15:15; Stop 01/04/19 at 15:17; Status DC Iohexol (Omnipaque 300 Mg/ml) 75 ml 1X ONCE IV Last administered on 01/04/19at 16:20; Start 01/04/19 at 15:15; Stop 01/04/19 at 15:17; Status DC Info (CONTRAST GIVEN -- Rx MONITORING) 1 each PRN DAILY PRN MC SEE COMMENTS; Start 01/04/19 at 15:30; Stop 01/06/19 at 15:29 Multivitamins 10 ml/Thiamine HCl 100 mg/Folic Acid 1 mg/Sodium Chloride 1,011.2 ml @ 100 mls/ hr DAILY IV Last administered on 01/06/19at 08:18; Start 01/04/19 at 18:00; Stop 01/08/19 at 19:07 Chlordiazepoxide (Librium) 50 mg PRN Q1HR PRN PO For CIWA 8-14 Last administered on 01/04/19at 18:17; Start 01/04/19 at 17:45 Chlordiazepoxide (Librium) 100 mg PRN Q1HR PRN PO For CIWA 15 or greater Last administered on 01/05/19at 06:27; Start 01/04/19 at 17:45 Lorazepam (Ativan) 4 mg PRN Q1HR PRN PO For CIWA 8-14 Last administered on 01/04/19at 18:17; Start 01/04/19 at 17:45 Lorazepam (Ativan) 8 mg PRN Q1HR PRN PO For CIWA 15 or greater; Start 01/04/19 at 17:45 Haloperidol Lactate (Haldol Inj) 5 mg PRN Q4HRS PRN IVP Hallucinatns,Confusn,Delirium; Start 01/04/19 at 17:45 Diphenhydramine HCl (Benadryl) 25 mg PRN Q15MIN PRN IVP EPS symptoms 2'Haldol admin; Start 01/04/19 at 17:45 Clonidine HCl (Catapres) 0.1 mg PRN Q1HR PRN PO SBP > 180 or DBP > 100, MRX3; Start 01/04/19 at 17:45 Lorazepam (Ativan Inj) 2 mg PRN Q1HR PRN IV For CIWA 8-14 Last administered on 01/04/19at 21:08; Start 01/04/19 at 19:15 Lorazepam (Ativan Inj) 4 mg PRN Q1HR PRN IV For CIWA 15 or greater Last administered on 01/05/19at 06:28; Start 01/04/19 at 19:15 Lorazepam (Ativan Inj) 2 mg PRN Q15MIN PRN IV SEE COMMENTS; Start 01/04/19 at 19:15; Status UNV Lorazepam (Ativan Inj) 4 mg PRN Q15MIN PRN IV SEE COMMENTS; Start 01/04/19 at 19:15; Status UNV Ondansetron HCl (Zofran) 4 mg PRN Q6HRS PRN IV NAUSEA/VOMITING Last administered on 01/04/19at 19:34; Start 01/04/19 at 19:30 Pantoprazole Sodium (PROTONIX VIAL for IV PUSH) 40 mg DAILYAC IVP Last administered on 01/06/19at 10:36; Start 01/06/19 at 10:00 Phytonadione (Vitamin K Ampule) 10 mg 1X ONCE SQ Last administered on 01/06/19at 10:36; Start 01/06/19 at 10:15; Stop 01/06/19 at 10:16; Status DC Piperacillin Sod/ Tazobactam Sod (Zosyn Per Pharmacy) 1 each PRN DAILY PRN MC SEE COMMENTS; Start 01/06/19 at 10:30 Piperacillin Sod/ Tazobactam Sod 3.375 gm/Sodium Chloride 50 ml @ 100 mls/hr Q6HRS IV ; Start 01/06/19 at 11:00 Lactulose (Lactulose) 30 gm Q6HRS NG ; Start 01/06/19 at 12:00 Active Scripts Active Reported Omeprazole 40 Mg Capsule.dr 1 Cap PO DAILY Vitals/I & O Vital Sign - Last 24 Hours 01/05/19 01/05/19 01/05/19 01/05/19 15:00 19:00 20:00 23:00 Temp 97.7 98.0 98.4 97.7 98.0 98.4 Pulse 120 132 135 Resp 20 20 20 B/P (MAP) 92/72 (79) 118/80 (93) 102/81 (88) Pulse Ox 93 91 97 O2 Delivery Room Air Room Air Room Air Room Air 01/06/19 01/06/19 01/06/19 01/06/19 03:00 07:00 08:00 10:30 Temp 98.7 99.1 98.9 98.7 99.1 98.9 Pulse 137 126 124 Resp 20 20 30 B/P (MAP) 106/73 (84) 99/58 (72) 86/52 Pulse Ox 96 94 O2 Delivery Room Air Room Air Room Air 01/06/19 10:45 Temp 98.3 98.3 Pulse 120 Resp 25 B/P (MAP) 92/49 Intake and Output 01/05/19 01/05/19 01/06/19 15:00 23:00 07:00 Intake Total 0 ml Balance 0 ml AURORA CORLEY MD Jan 06, 2019 11:36
[2019-01-06] MEDS: PIPERACILLIN/TAZOBACTAM 3.375 GM in IV NORMAL SALINE 50ML 50 ML IV SCH ×2 (11:55→17:37)
--- NOTE | 2019-01-06 12:12 | PDOC2 ---
GI CONSULT Reason For Consult: Anemia HPI: HPI: 43 y/o male; history limited as obtunded and family members present not up to date re: any health problems. Admitted with h/o alcohol abuse and abnormal labs at outside institution. Overnight, precipitous drop in hemoglobin and marked increase in INR from fairly normal baseline. On aspiration of NG, dark blood w/o clots, bright red or maroon material. Has not had melena. Apparently excessive alcohol abuse for a long time, only recently stopped. Imaging with ascites, possible liver mass, evidence for cirrhosis, but abdominal varices not mentioned. PMH: PMH: Not available. FH: Family History: Other (Not obtainable from patient.) Social History: Smoke: No ALCOHOL: heavy Drugs: None ROS: Not obtainable from patient. Vitals: Vitals: Persistently tachycardic. Some drop in BP this morning. Vital Signs Date Time Temp Pulse Resp B/P (MAP) Pulse Ox O2 Delivery O2 Flow Rate FiO2 01/06/19 11:30 122 26 93/52 (66) 98 Nasal Cannula 2.0 01/06/19 10:45 98.3 98.3 Labs: Labs: Laboratory Tests Test 01/06/19 05:00 01/06/19 08:05 01/06/19 09:30 01/06/19 10:10 Sodium Level 143 mmol/L (136-145) Potassium Level 4.3 mmol/L (3.5-5.1) Chloride Level 108 mmol/L (98-107) Carbon Dioxide Level 15 mmol/L (21-32) Anion Gap 20 (6-14) Blood Urea Nitrogen 35 mg/dL (8-26) Creatinine 1.1 mg/dL (0.7-1.3) Estimated GFR (Cockcroft-Gault) 72.7 BUN/Creatinine Ratio 32 (6-20) Glucose Level 114 mg/dL (70-99) Calcium Level 7.5 mg/dL (8.5-10.1) Total Bilirubin 10.3 mg/dL (0.2-1.0) Aspartate Amino Transf (AST/SGOT) 156 U/L (15-37) Alanine Aminotransferase (ALT/SGPT) 81 U/L (16-63) Alkaline Phosphatase 107 U/L (46-116) Total Protein 5.1 g/dL (6.4-8.2) Albumin 1.7 g/dL (3.4-5.0) Albumin/Globulin Ratio 0.5 (1.0-1.7) White Blood Count 11.6 x10^3/uL (4.0-11.0) Red Blood Count 1.78 x10^6/uL (4.30-5.70) Hemoglobin 6.6 g/dL (13.0-17.5) Hematocrit 19.9 % (39.0-53.0) Mean Corpuscular Volume 111 fL (79-100) Mean Corpuscular Hemoglobin 37 pg (25-35) Mean Corpuscular Hemoglobin Concent 33 g/dL (31-37) Red Cell Distribution Width 16.9 % (11.5-14.5) Platelet Count 105 x10^3/uL (140-400) Neutrophils (%) (Auto) 87 % (31-73) Lymphocytes (%) (Auto) 8 % (24-48) Monocytes (%) (Auto) 5 % (0-9) Eosinophils (%) (Auto) 0 % (0-3) Basophils (%) (Auto) 0 % (0-3) Neutrophils # (Auto) 10.1 x10^3/uL (1.8-7.7) Lymphocytes # (Auto) 0.9 x10^3/uL (1.0-4.8) Monocytes # (Auto) 0.6 x10^3/uL (0.0-1.1) Eosinophils # (Auto) 0.0 x10^3/uL (0.0-0.7) Basophils # (Auto) 0.0 x10^3/uL (0.0-0.2) Prothrombin Time 31.3 SEC (11.7-14.0) Prothromb Time International Ratio 3.0 (0.8-1.1) Activated Partial Thromboplast Time 38 SEC (24-38) Fibrinogen 170 mg/dL (200-440) D-Dimer (Laisha) 3.88 ug/mlFEU (0.00-0.50) O2 Saturation 94 % (92-99) Arterial Blood pH 7.47 (7.35-7.45) Arterial Blood pCO2 at Patient Temp 19 mmHg (35-46) Arterial Blood pO2 at Patient Temp 76 mmHg (75-108) Arterial Blood HCO3 14 mmol/L (21-28) Arterial Blood Base Excess -9 mmol/L (-3-3) FiO2 21 Lactic Acid Level 14.9 mmol/L (0.4-2.0) Ammonia 209 mcmol/L (11-34) FFP and blood ordered. Allergies: Coded Allergies: No Known Drug Allergies (Unverified , 01/04/19) Medications: Current Medications Medications (Trade) Dose Ordered Sig/Amrik Route PRN Reason Start Time Stop Time Status Last Admin Dose Admin Pantoprazole Sodium (PROTONIX VIAL for IV PUSH) 40 mg DAILYAC IVP 01/06/19 10:00 01/06/19 10:36 Phytonadione (Vitamin K Ampule) 10 mg 1X ONCE SQ 01/06/19 10:15 01/06/19 10:16 DC 01/06/19 10:36 Piperacillin Sod/ Tazobactam Sod 3.375 gm/Sodium Chloride 50 ml @ 100 mls/hr Q6HRS IV 01/06/19 11:00 01/06/19 11:55 Imaging: Imaging: On CT: IMPRESSION: 1. Irregular wall thickening of the cecum and ascending colon with surrounding inflammatory type change and fluid. This is most compatible with a severe colitis, could be of ischemic, infectious or inflammatory etiology. Colonic neoplasm not excludable. Milder colitis involving the remaining colon. 2. Mild gallbladder distention with wall thickening and pericholecystic fluid, concerning for cholecystitis. 3. Mild abdominal and pelvic ascites with generalized peritoneal and retroperitoneal inflammatory type stranding and fascial thickening, greatest in the region of the right colon. 4. Liver morphology suggests cirrhosis. 5. There is a 5 cm region of relative hypoattenuation at the base of the caudate lobe, concerning for a hepatic neoplasm. MRI of the liver could further evaluate. 6. Wall thickening of the distal visualized esophagus and duodenum, consider inflammatory or infectious esophagitis and duodenitis. Duodenal ulcer disease could also be considered. 7. Progressive dilution of the distal small bowel contrast column, may be due to ileus or functional obstruction from the colonic pathology discussed above. PE: GEN: Not responsive. HEENT: Atraumatic LUNGS: CTAB HEART: RRR, no murmurs ABD: NABS, S/ND/NT?, no masses. Old blood in NG. EXTREMITY: Multiple ecchymoses. SKIN: Icteric. NEURO/PSYCH: Obtunded, DTRs not brisk and no asterixis. A/P: A/P: IMP: Acute anemia. evidence for UGI bleeding by NG aspirate. Varices possible as are other causes. Element of hemolysis? Probable alcoholic hepatitis superimposed on cirrhosis. Likely cirrhotic with encephalopathy, ascites, possible liver mass. Seems probably in DIC; cause unclear. REC: Octreotide, PPI drips. Transfuse. Look for source of DIC. Hold endoscopy at this point; with coagulopathy, not likely to be very effective. Consider if evidence for brisk bleeding. AFP if not ordered. Haptoglobin if not ordered. --Other pending. CONRAD GUTIERREZ MD Jan 06, 2019 12:12
--- NOTE | 2019-01-06 12:15 | RAD ---
Examination: Frontal view of the abdomen HISTORY: History of NG tube placement COMPARISON: None available Findings/ impression: Feeding tube is identified below the diaphragm likely in the distal stomach or first part of duodenum. Few air distended small bowel loops identified in the abdomen. Electronically signed by: Aric Ko MD (01/06/2019 12:12 PM) [facility]
--- NOTE | 2019-01-06 12:36 | PDOC ---
Infectious Disease Note Vital Sign Vital Signs Vital Signs Date Time Temp Pulse Resp B/P (MAP) Pulse Ox O2 Delivery O2 Flow Rate FiO2 01/06/19 11:30 122 26 93/52 (66) 98 Nasal Cannula 2.0 01/06/19 10:45 98.3 98.3 Labs Lab Laboratory Tests Test 01/06/19 05:00 01/06/19 08:05 01/06/19 09:30 01/06/19 10:10 Sodium Level 143 mmol/L (136-145) Potassium Level 4.3 mmol/L (3.5-5.1) Chloride Level 108 mmol/L (98-107) Carbon Dioxide Level 15 mmol/L (21-32) Anion Gap 20 (6-14) Blood Urea Nitrogen 35 mg/dL (8-26) Creatinine 1.1 mg/dL (0.7-1.3) Estimated GFR (Cockcroft-Gault) 72.7 BUN/Creatinine Ratio 32 (6-20) Glucose Level 114 mg/dL (70-99) Calcium Level 7.5 mg/dL (8.5-10.1) Total Bilirubin 10.3 mg/dL (0.2-1.0) Aspartate Amino Transf (AST/SGOT) 156 U/L (15-37) Alanine Aminotransferase (ALT/SGPT) 81 U/L (16-63) Alkaline Phosphatase 107 U/L (46-116) Total Protein 5.1 g/dL (6.4-8.2) Albumin 1.7 g/dL (3.4-5.0) Albumin/Globulin Ratio 0.5 (1.0-1.7) White Blood Count 11.6 x10^3/uL (4.0-11.0) Red Blood Count 1.78 x10^6/uL (4.30-5.70) Hemoglobin 6.6 g/dL (13.0-17.5) Hematocrit 19.9 % (39.0-53.0) Mean Corpuscular Volume 111 fL (79-100) Mean Corpuscular Hemoglobin 37 pg (25-35) Mean Corpuscular Hemoglobin Concent 33 g/dL (31-37) Red Cell Distribution Width 16.9 % (11.5-14.5) Platelet Count 105 x10^3/uL (140-400) Neutrophils (%) (Auto) 87 % (31-73) Lymphocytes (%) (Auto) 8 % (24-48) Monocytes (%) (Auto) 5 % (0-9) Eosinophils (%) (Auto) 0 % (0-3) Basophils (%) (Auto) 0 % (0-3) Neutrophils # (Auto) 10.1 x10^3/uL (1.8-7.7) Lymphocytes # (Auto) 0.9 x10^3/uL (1.0-4.8) Monocytes # (Auto) 0.6 x10^3/uL (0.0-1.1) Eosinophils # (Auto) 0.0 x10^3/uL (0.0-0.7) Basophils # (Auto) 0.0 x10^3/uL (0.0-0.2) Prothrombin Time 31.3 SEC (11.7-14.0) Prothromb Time International Ratio 3.0 (0.8-1.1) Activated Partial Thromboplast Time 38 SEC (24-38) Fibrinogen 170 mg/dL (200-440) D-Dimer (Laisha) 3.88 ug/mlFEU (0.00-0.50) O2 Saturation 94 % (92-99) Arterial Blood pH 7.47 (7.35-7.45) Arterial Blood pCO2 at Patient Temp 19 mmHg (35-46) Arterial Blood pO2 at Patient Temp 76 mmHg (75-108) Arterial Blood HCO3 14 mmol/L (21-28) Arterial Blood Base Excess -9 mmol/L (-3-3) FiO2 21 Lactic Acid Level 14.9 mmol/L (0.4-2.0) Ammonia 209 mcmol/L (11-34) Objective Assessment Sepsis w/ hypotension, lactic acidosis and fever Alcoholic liver disease/failure with ascites, thrombocytopenia and hepatic encephalopathy Coagulopathy Pancreatitis, lipase >3400 Hepatic mass Colitis Esophagitis Acute anemia Possible cholecystitis Plan Plan of Care Agree with cassi Navarro Flagyl BC x 2 PRBCs underway Monitor D/w daughter D/w nursing Poor prognosis Critically ill CC time 35 min Thank you [id number] d/w family Attending Co-Sign Attending Co-Sign The patient was seen and interviewed as well as examined at the bedside. The chart was reviewed. The case was discussed. Agree with the plan of care. NABIL MATHIS PROCESS CHECKER Jan 06, 2019 12:36 GLADYS BURGOS MD Jan 06, 2019 14:13
[2019-01-06] MEDS: LACTULOSE 20 GM/30 ML SOLUTION. NG SCH ×2 (13:29→17:36)
--- NOTE | 2019-01-06 13:33 | PDOC ---
[facility] [facility] PROGRESS NOTE Chief Complaint Chief Complaint Problems: (1) Jaundice (2) Alcoholic liver disease (3) Pancreatitis (4) Thrombocytopenia Chief Complaint: Bruising and jaundice History of Present Illness History of Present Illness 7�14�2019 Patient has had a significant decline overnight He is now severely encephalopathic and basically not talking not waking up Hemoglobin has dropped to 6 INR has climbed to 2.9 I moved into the ICU His and daughter have now arrived I explained to his and daughter that I am concerned he may not survive Ammonia levels 208 They are considering their options at this point they want full care I discussed at length with the nurse We are going to give fresh frozen plasma and vitamin K and lactulose and antibiotics and a consult ID and GI. Patient was seen and examined He was resting comfortably and in no acute distress Vitals/I&O Vitals/I&O: Vital Signs Date Time Temp Pulse Resp B/P (MAP) Pulse Ox O2 Delivery O2 Flow Rate FiO2 01/06/19 13:00 98.5 124 28 96/50 98.5 01/06/19 11:30 98 Nasal Cannula 2.0 I & O 01/05/19 01/05/19 01/06/19 15:00 23:00 07:00 Intake Total 0 ml Balance 0 ml Physical Exam Physical Exam: HEENT He has severe scleral icterus General: No acute distress, Other (severely encephalopathic) Heart: Regular rate, Normal S1, Normal S2 Lungs: Clear, Other (symmetrical chest expansion on respiration) Abdomen: Other (hepatomegaly) Extremities: Other (ecchymoses on extremities) Skin: Other (he is jaundiced) Labs Labs: Laboratory Tests Test 01/06/19 05:00 01/06/19 08:05 01/06/19 09:30 01/06/19 10:10 Sodium Level 143 mmol/L (136-145) Potassium Level 4.3 mmol/L (3.5-5.1) Chloride Level 108 mmol/L (98-107) Carbon Dioxide Level 15 mmol/L (21-32) Anion Gap 20 (6-14) Blood Urea Nitrogen 35 mg/dL (8-26) Creatinine 1.1 mg/dL (0.7-1.3) Estimated GFR (Cockcroft-Gault) 72.7 BUN/Creatinine Ratio 32 (6-20) Glucose Level 114 mg/dL (70-99) Calcium Level 7.5 mg/dL (8.5-10.1) Total Bilirubin 10.3 mg/dL (0.2-1.0) Aspartate Amino Transf (AST/SGOT) 156 U/L (15-37) Alanine Aminotransferase (ALT/SGPT) 81 U/L (16-63) Alkaline Phosphatase 107 U/L (46-116) Total Protein 5.1 g/dL (6.4-8.2) Albumin 1.7 g/dL (3.4-5.0) Albumin/Globulin Ratio 0.5 (1.0-1.7) White Blood Count 11.6 x10^3/uL (4.0-11.0) Red Blood Count 1.78 x10^6/uL (4.30-5.70) Hemoglobin 6.6 g/dL (13.0-17.5) Hematocrit 19.9 % (39.0-53.0) Mean Corpuscular Volume 111 fL (79-100) Mean Corpuscular Hemoglobin 37 pg (25-35) Mean Corpuscular Hemoglobin Concent 33 g/dL (31-37) Red Cell Distribution Width 16.9 % (11.5-14.5) Platelet Count 105 x10^3/uL (140-400) Neutrophils (%) (Auto) 87 % (31-73) Lymphocytes (%) (Auto) 8 % (24-48) Monocytes (%) (Auto) 5 % (0-9) Eosinophils (%) (Auto) 0 % (0-3) Basophils (%) (Auto) 0 % (0-3) Neutrophils # (Auto) 10.1 x10^3/uL (1.8-7.7) Lymphocytes # (Auto) 0.9 x10^3/uL (1.0-4.8) Monocytes # (Auto) 0.6 x10^3/uL (0.0-1.1) Eosinophils # (Auto) 0.0 x10^3/uL (0.0-0.7) Basophils # (Auto) 0.0 x10^3/uL (0.0-0.2) Prothrombin Time 31.3 SEC (11.7-14.0) Prothromb Time International Ratio 3.0 (0.8-1.1) Activated Partial Thromboplast Time 38 SEC (24-38) Fibrinogen 170 mg/dL (200-440) D-Dimer (Laisha) 3.88 ug/mlFEU (0.00-0.50) O2 Saturation 94 % (92-99) Arterial Blood pH 7.47 (7.35-7.45) Arterial Blood pCO2 at Patient Temp 19 mmHg (35-46) Arterial Blood pO2 at Patient Temp 76 mmHg (75-108) Arterial Blood HCO3 14 mmol/L (21-28) Arterial Blood Base Excess -9 mmol/L (-3-3) FiO2 21 Lactic Acid Level 14.9 mmol/L (0.4-2.0) Ammonia 209 mcmol/L (11-34) Review of Systems Review of Systems: Unable to obtain Assessment and Plan Assessmemt and Plan Problems Medical Problems: (1) Alcoholic liver disease Status: Acute (2) Cholelithiasis Status: Acute (3) Colitis Status: Acute (4) Jaundice Status: Acute (5) Pancreatitis Status: Acute (6) Thrombocytopenia Status: Severe end-stage liver disease with multiple issues including probable sepsis GI bleed possible DIC hepatic encephalopathy hypotension tachycardia Plan As per above I ordered fresh frozen plasma and vitamin K antibiotics consult a GI consult infectious disease spoke with the family at length Total time 42 minutes Comment Review of Relevant I have reviewed the following items pierre (where applicable) has been applied. Medications: Current Medications Medications (Trade) Dose Ordered Sig/Amrik Route PRN Reason Start Time Stop Time Status Last Admin Dose Admin Pantoprazole Sodium (PROTONIX VIAL for IV PUSH) 40 mg DAILYAC IVP 01/06/19 10:00 01/06/19 12:17 DC 01/06/19 10:36 Phytonadione (Vitamin K Ampule) 10 mg 1X ONCE SQ 01/06/19 10:15 01/06/19 10:16 DC 01/06/19 10:36 Piperacillin Sod/ Tazobactam Sod 3.375 gm/Sodium Chloride 50 ml @ 100 mls/hr Q6HRS IV 01/06/19 11:00 01/06/19 11:55 SACHIN TRAN III DO Jan 06, 2019 13:33
[2019-01-06] MEDS: PANTOPRAZOLE SODIUM IV DRIP 80 MG in IV NORMAL SALINE 100ML 100 ML IV SCH (15:00)
[2019-01-06] MEDS: OCTREOTIDE 500 MCG in IV NORMAL SALINE 100ML 100 ML IV PRN (15:06)
--- NOTE | 2019-01-06 15:10 | CONS ---
DATE OF CONSULTATION: 01/06/2019 REQUESTING PHYSICIAN: Dr. Frias. REASON FOR CONSULT: Questionable sepsis and end-stage liver disease. HISTORY OF PRESENT ILLNESS: This patient is a 43-year-old male who is encephalopathic, unable to provide history of present illness, past medical history or review of systems. According to his daughter, he has a history of drinking alcohol quite heavily over the last 22 years, averaging 30-60 beers a day. Over the last year, he has been depressed, shaky and not well-coordinated with falls. He could not work regularly. He tried to quit drinking a few times that failed. He complained nosebleeds, blood in urine and bruising. He was referred to the ER by his PCP for abnormal labs. Findings on CT abdomen/pelvis with oral and IV contrast are concerning for severe colitis, cholecystitis, ascites, esophagitis and duodenitis, cirrhosis, hepatic neoplasm and possible ileus or functional obstruction. Since admission, he has become less responsive and obtunded with fever and hypotension. He was started on Zosyn. ID has been asked to consult for further evaluation and antibiotic management. The patient's daughter says he has lost about 50 pounds in a span of 3 month period last year and his weight has been somewhat stable since. She is not aware of any complaints of fever, diarrhea, vomiting or cough at home. She does recall him having some indigestion. PAST MEDICAL HISTORY: Depression, hypertension, GERD, panic attacks. PAST SURGICAL HISTORY: No significant past surgical history. SOCIAL HISTORY: The patient is and lives at home. Used to work at a [employer] shop and [employer]. He migrated to the [place] from [place] about 19 years ago. He has 2 daughters. Heavy alcohol as mentioned above. He is Adventism. FAMILY HISTORY: Noncontributory. ALLERGIES: No known drug allergies. MEDICATIONS: Zosyn since 01/06/2019, multivitamin infusion, Protonix, Librium, clonidine, lactulose, lorazepam, vitamin K. Other medications are available and have been reviewed on the AUG. REVIEW OF SYSTEMS: Per HPI, otherwise all other review of systems limited as the patient is encephalopathic. PHYSICAL EXAMINATION: VITAL SIGNS: Temperature is 98.3, T-max 101.9, blood pressure 93/52, heart rate 122, respiratory rate 26, pulse oximetry is 98% on 2 liters oxygen, BMI is 26. GENERAL: The patient is propped up in bed, jaundiced and unresponsive. HEENT: Pupils equally round and reactive. Icterus. Oral cavity dry. NG tube in place with blood in tubing noted. NECK: Supple. LUNGS: Clear. HEART: S1 and S2 regular, tachy 120s. ABDOMEN: Mildly distended, soft, no grimace or guarding to palpation. Bowel sounds present. GENITOURINARY: Indwelling Galdamez in place. Urine is dark and concentrated. EXTREMITIES: No gross edema or cyanosis. Peripheral IV looks okay. SKIN: Warm to touch. He has multiple ecchymoses, especially lower extremities. NEUROLOGIC: Unresponsive to verbal and tactile stimulation. LABORATORY AND DIAGNOSTIC DATA: Today's WBC 11.6 from 5.7 on admission, hemoglobin 6.6, hematocrit 19.9, platelets 110,000. Sodium 143, potassium 4.3, creatinine 1.1, BUN 35, glucose 114, lactic acid 14.9, total bilirubin 10.3, AST 156, ALT 81, ammonia 209, albumin 1.7, lipase 3468. INR 3.0, PT 31.3, fibrinogen 170, D-dimer 3.88. Urine toxicology positive for alcohol. Urinalysis is unremarkable for infection. Abdominal/pelvis CT with oral and IV contrast per HPI. KUB showed few air distended small bowel loops in the abdomen. IMPRESSION: 1. Sepsis with hypotension, lactic acidosis and fever. 2. Alcoholic liver disease/failure with ascites, thrombocytopenia and hepatic encephalopathy. 3. Coagulopathy. 4. Pancreatitis. 5. Hepatic mass. 6. Colitis. 7. Esophagitis. 8. Acute anemia. 9. Possible cholecystitis. PLAN: 1. Agree with Zosyn. We will add metronidazole and obtain blood cultures. He is undergoing blood transfusion. Continue to monitor. 2. Discuss with daughter at bedside. 3. Prognosis poor. 4. Critically ill. Thank you, Dr. Frias, for asking us to participate in this patient's care. Should you have further questions or concerns, please call. The patient is seen, examined and plan of care implemented by Dr. Andriy Burgos. ANDRIY BURGOS MD DR: GIULIANO/stacey JOB#: [id number] / [id number]
[2019-01-06 17:25] LABS: HEMATOCRIT 24.5 % (39.0-53.0); HEMOGLOBIN 8.3 g/dL (13.0-17.5); RED BLOOD COUNT 2.4 x10^6/uL (4.30-5.70); WHITE BLOOD COUNT 15.2 x10^3/uL (4.0-11.0)
[2019-01-06 17:34] LABS: PROTHROMBIN TIME PATIENT 26.4 SEC (11.7-14.0)
[2019-01-06] MEDS ORDERED: ALBUMIN HUMAN 25% 100 ML IV ONE (20:15)
[2019-01-06] MEDS ORDERED: NOREPINEPHRIN 8MG/250ML PREMIX 250 ML IV PRN (20:15)
[2019-01-07] VITALS (27 sets, daily range): BP systolic 93–151; BP diastolic 22–96
[2019-01-07] MEDS: PANTOPRAZOLE SODIUM IV DRIP 80 MG in IV NORMAL SALINE 100ML 100 ML IV SCH ×3 (00:02→20:44)
[2019-01-07] MEDS: PIPERACILLIN/TAZOBACTAM 3.375 GM in IV NORMAL SALINE 50ML 50 ML IV SCH ×4 (00:03→17:27)
[2019-01-07] MEDS: LACTULOSE 20 GM/30 ML SOLUTION. NG SCH ×4 (01:05→17:27)
[2019-01-07 05:01] LABS: ALBUMIN 2.2 g/dL (3.4-5.0); ALBUMIN/GLOBULIN RATIO 0.7 (1.0-1.7); CALCIUM 7.8 mg/dL (8.5-10.1); CREATININE 1.3 mg/dL (0.7-1.3); POTASSIUM 3.7 mmol/L (3.5-5.1); TOTAL BILIRUBIN 12.5 mg/dL (0.2-1.0); TOTAL PROTEIN 5.2 g/dL (6.4-8.2)
[2019-01-07 05:30] LABS: BASO % 0 % (0-3); EOS % 0 % (0-3); HEMATOCRIT 21.8 % (39.0-53.0); HEMOGLOBIN 7.5 g/dL (13.0-17.5); LYMPH # 1.8 x10^3/uL (1.0-4.8); LYMPH % 11 % (24-48); MEAN CORPUSCULAR HEMOGLOBIN 35 pg (25-35); MEAN CORPUSCULAR HGB CONC 34 g/dL (31-37); MEAN CORPUSCULAR VOLUME 101 fL (79-100); MONO # 1.4 x10^3/uL (0.0-1.1); MONO % 9 % (0-9); NEUT # 12.8 x10^3/uL (1.8-7.7); NEUT % 80 % (31-73); PLATELET COUNT 121 x10^3/uL (140-400); RED BLOOD COUNT 2.15 x10^6/uL (4.30-5.70); RED CELL DISTRIBUTION WIDTH 21.8 % (11.5-14.5)
[2019-01-07 07:41] LABS: % BANDS 9 % (0-9); % LYMPHS 9 % (24-48); % MONOS 2 % (0-10); % SEGS 80 % (35-66); NUCLEATED RBC 1
[2019-01-07 07:42] LABS: PLT ESTIMATE DECREASED (ADEQUATE)
[2019-01-07 07:43] LABS: ANISOCYTOSIS MOD
[2019-01-07] MEDS: MULTIVIT INFUSN,ADULT 4,VIT K 10 ML, THIAMINE INJ 100 MG, FOLIC ACID INJ 1 MG in IV NOR... IV SCH (08:03)
--- NOTE | 2019-01-07 08:27 | PDOC ---
Infectious Disease Note Subjective Subjective nonverbal ROS ROS unable to obtain Vital Sign Vital Signs Vital Signs Date Time Temp Pulse Resp B/P (MAP) Pulse Ox O2 Delivery O2 Flow Rate FiO2 01/07/19 07:00 98.0 113 18 108/67 (81) 92 Nasal Cannula 6.0 98.0 Physical Exam PHYSICAL EXAM GENERAL: The patient is propped up in bed, jaundiced and unresponsive. HEENT: Pupils equally round and reactive. Icterus. Oral cavity dry. NG tube in place with blood in tubing noted. NECK: Supple. LUNGS: Clear. HEART: S1 and S2 regular, tachy . ABDOMEN: Mildly distended, soft, no grimace or guarding to palpation. Bowel sounds present. GENITOURINARY: Indwelling Galdamez in place. Urine is dark and concentrated. EXTREMITIES: No gross edema or cyanosis IVS: Peripheral IV looks okay. SKIN: Warm to touch. He has multiple ecchymoses, especially lower extremities. NEUROLOGIC: Unresponsive to verbal and tactile stimulation. Labs Lab Laboratory Tests Test 01/06/19 09:30 01/06/19 09:50 01/06/19 10:10 01/06/19 17:15 O2 Saturation 94 % (92-99) Arterial Blood pH 7.47 (7.35-7.45) Arterial Blood pCO2 at Patient Temp 19 mmHg (35-46) Arterial Blood pO2 at Patient Temp 76 mmHg (75-108) Arterial Blood HCO3 14 mmol/L (21-28) Arterial Blood Base Excess -9 mmol/L (-3-3) FiO2 21 Nasal Screen MRSA (PCR) Negative (Negative) Lactic Acid Level 14.9 mmol/L (0.4-2.0) 11.3 mmol/L (0.4-2.0) Ammonia 209 mcmol/L (11-34) White Blood Count 15.2 x10^3/uL (4.0-11.0) Red Blood Count 2.40 x10^6/uL (4.30-5.70) Hemoglobin 8.3 g/dL (13.0-17.5) Hematocrit 24.5 % (39.0-53.0) Mean Corpuscular Volume 102 fL (79-100) Mean Corpuscular Hemoglobin 35 pg (25-35) Mean Corpuscular Hemoglobin Concent 34 g/dL (31-37) Red Cell Distribution Width 21.0 % (11.5-14.5) Platelet Count 110 x10^3/uL (140-400) Prothrombin Time 26.4 SEC (11.7-14.0) Prothromb Time International Ratio 2.5 (0.8-1.1) Test 01/07/19 04:20 White Blood Count 16.0 x10^3/uL (4.0-11.0) Red Blood Count 2.15 x10^6/uL (4.30-5.70) Hemoglobin 7.5 g/dL (13.0-17.5) Hematocrit 21.8 % (39.0-53.0) Mean Corpuscular Volume 101 fL (79-100) Mean Corpuscular Hemoglobin 35 pg (25-35) Mean Corpuscular Hemoglobin Concent 34 g/dL (31-37) Red Cell Distribution Width 21.8 % (11.5-14.5) Platelet Count 121 x10^3/uL (140-400) Neutrophils (%) (Auto) 80 % (31-73) Lymphocytes (%) (Auto) 11 % (24-48) Monocytes (%) (Auto) 9 % (0-9) Eosinophils (%) (Auto) 0 % (0-3) Basophils (%) (Auto) 0 % (0-3) Neutrophils # (Auto) 12.8 x10^3/uL (1.8-7.7) Lymphocytes # (Auto) 1.8 x10^3/uL (1.0-4.8) Monocytes # (Auto) 1.4 x10^3/uL (0.0-1.1) Eosinophils # (Auto) 0.0 x10^3/uL (0.0-0.7) Basophils # (Auto) 0.0 x10^3/uL (0.0-0.2) Segmented Neutrophils % 80 % (35-66) Band Neutrophils % 9 % (0-9) Lymphocytes % 9 % (24-48) Monocytes % 2 % (0-10) Nucleated Red Blood Cells 1 Platelet Estimate Decreased (ADEQUATE) Anisocytosis Mod Sodium Level 148 mmol/L (136-145) Potassium Level 3.7 mmol/L (3.5-5.1) Chloride Level 113 mmol/L (98-107) Carbon Dioxide Level 21 mmol/L (21-32) Anion Gap 14 (6-14) Blood Urea Nitrogen 60 mg/dL (8-26) Creatinine 1.3 mg/dL (0.7-1.3) Estimated GFR (Cockcroft-Gault) 60.0 BUN/Creatinine Ratio 46 (6-20) Glucose Level 171 mg/dL (70-99) Calcium Level 7.8 mg/dL (8.5-10.1) Total Bilirubin 12.5 mg/dL (0.2-1.0) Aspartate Amino Transf (AST/SGOT) 309 U/L (15-37) Alanine Aminotransferase (ALT/SGPT) 154 U/L (16-63) Alkaline Phosphatase 94 U/L (46-116) Total Protein 5.2 g/dL (6.4-8.2) Albumin 2.2 g/dL (3.4-5.0) Albumin/Globulin Ratio 0.7 (1.0-1.7) Objective Assessment Sepsis w/ hypotension, lactic acidosis and fever Alcoholic liver disease/failure with ascites, thrombocytopenia and hepatic encephalopathy Coagulopathy Pancreatitis, lipase >3400 Hepatic mass Colitis Esophagitis Acute anemia Possible cholecystitis ? liver mass Plan Plan of Care MOF -worsening Cont Zosyn, add Flagyl F/u BC x 2 F/u labs Monitor D/w nursing Poor prognosis Critically ill GLADYS BURGOS MD Jan 07, 2019 08:27
[2019-01-07 09:28] LABS: PROTHROMBIN TIME PATIENT 27.6 SEC (11.7-14.0)
--- NOTE | 2019-01-07 09:36 | PDOC ---
Objective: Objective: Reviewed w/ nurse - black loose stools w/ lactulose, ~100 out from NG earlier this morning, resp status worse, BP some better after albumin yesterday, got lactulose again this morning. Vital Signs: Vital Signs Date Time Temp Pulse Resp B/P (MAP) Pulse Ox O2 Delivery O2 Flow Rate FiO2 01/07/19 09:00 108 20 98/53 (68) 90 Venturi Mask 01/07/19 07:00 98.0 6.0 98.0 Labs: Laboratory Tests Test 01/06/19 09:30 01/06/19 09:50 01/06/19 10:10 01/06/19 17:15 O2 Saturation 94 % Arterial Blood pH 7.47 Arterial Blood pCO2 at Patient Temp 19 mmHg Arterial Blood pO2 at Patient Temp 76 mmHg Arterial Blood HCO3 14 mmol/L Arterial Blood Base Excess -9 mmol/L FiO2 21 Nasal Screen MRSA (PCR) Negative Lactic Acid Level 14.9 mmol/L 11.3 mmol/L Ammonia 209 mcmol/L White Blood Count 15.2 x10^3/uL Red Blood Count 2.40 x10^6/uL Hemoglobin 8.3 g/dL Hematocrit 24.5 % Mean Corpuscular Volume 102 fL Mean Corpuscular Hemoglobin 35 pg Mean Corpuscular Hemoglobin Concent 34 g/dL Red Cell Distribution Width 21.0 % Platelet Count 110 x10^3/uL Prothrombin Time 26.4 SEC Prothromb Time International Ratio 2.5 Test 01/07/19 04:20 White Blood Count 16.0 x10^3/uL Red Blood Count 2.15 x10^6/uL Hemoglobin 7.5 g/dL Hematocrit 21.8 % Mean Corpuscular Volume 101 fL Mean Corpuscular Hemoglobin 35 pg Mean Corpuscular Hemoglobin Concent 34 g/dL Red Cell Distribution Width 21.8 % Platelet Count 121 x10^3/uL Neutrophils (%) (Auto) 80 % Lymphocytes (%) (Auto) 11 % Monocytes (%) (Auto) 9 % Eosinophils (%) (Auto) 0 % Basophils (%) (Auto) 0 % Neutrophils # (Auto) 12.8 x10^3/uL Lymphocytes # (Auto) 1.8 x10^3/uL Monocytes # (Auto) 1.4 x10^3/uL Eosinophils # (Auto) 0.0 x10^3/uL Basophils # (Auto) 0.0 x10^3/uL Segmented Neutrophils % 80 % Band Neutrophils % 9 % Lymphocytes % 9 % Monocytes % 2 % Nucleated Red Blood Cells 1 Platelet Estimate Decreased Anisocytosis Mod Sodium Level 148 mmol/L Potassium Level 3.7 mmol/L Chloride Level 113 mmol/L Carbon Dioxide Level 21 mmol/L Anion Gap 14 Blood Urea Nitrogen 60 mg/dL Creatinine 1.3 mg/dL Estimated GFR (Cockcroft-Gault) 60.0 BUN/Creatinine Ratio 46 Glucose Level 171 mg/dL Calcium Level 7.8 mg/dL Total Bilirubin 12.5 mg/dL Aspartate Amino Transf (AST/SGOT) 309 U/L Alanine Aminotransferase (ALT/SGPT) 154 U/L Alkaline Phosphatase 94 U/L Total Protein 5.2 g/dL Albumin 2.2 g/dL Albumin/Globulin Ratio 0.7 PE: GEN: ill HEENT: NG - canister w/ ~100cc dark brown w/ reddish tint LUNGS: Venturi mask HEART: tachycardic ABD: soft NEURO/PSYCH: unable to rouse A/P: Anemia/UGI bleed/melena, coagulopathy, lactic acidosis, fever, hypoxia Suspected alcoholic hepatitis/cirrhosis, hepatic encephalopathy, pancreatitis Abnormal CT - thickening in colon, esophagus, duodenum; ?hepatic mass, ascites -- Now resp status an issue. Continue octreotide and PPI drips. AFP pending. EMILEE TRAMMELL Jan 07, 2019 09:36
--- NOTE | 2019-01-07 10:02 | PDOC ---
PROGRESS NOTES Chief Complaint Chief Complaint Problems: (1) Jaundice (2) Alcoholic liver disease (3) Pancreatitis (4) Thrombocytopenia Chief Complaint: Bruising and jaundice History of Present Illness History of Present Illness 7�15�2019 Sepsis w/ hypotension, lactic acidosis and fever severely encephalopathic nonverbal Hemoglobin 7.5 post transfusion INR has climbed to 2.6 moved ICU His and daughter here Ammonia levels 208 full code for now I discussed nurse ID following GI.consulted pulm consulted vit k 10mg sq plus 2 units FFP 01/07 PCXR 01/07 echo 01/07, cardiology consult neurology consult, ct head 01/07 abd sono Patient was seen and examined Bruising and jaundice severe alcohol abuse HX according to daughter Thrombocytopenia. , most likely secondary to his liver disease and cirrhosis, Irregular wall thickening of the cecum and ascending colon with surrounding inflammatory type change and fluid. This is most compatible with severe colitis, could be of ischemic, infectious or inflammatory etiology. Colonic neoplasm not excludable. Milder colitis involving the remaining colon. Mild gallbladder distention with wall thickening and pericholecystic fluid, concerning for cholecystitis. Mild abdominal and pelvic ascites Mild wall thickening of the distal esophagus. Mild wall thickening of the duodenum. No significant small bowel distention. 35 min cc time Vitals Vitals Vital Signs Date Time Temp Pulse Resp B/P (MAP) Pulse Ox O2 Delivery O2 Flow Rate FiO2 01/07/19 09:00 108 20 98/53 (68) 90 Venturi Mask 01/07/19 07:00 98.0 6.0 98.0 Physical Exam Physical Exam GENERAL: The patient is propped up in bed, jaundiced HEENT: Pupils equally round and reactive. Icterus. Oral cavity dry. NG tube in place with blood in tubing noted. NECK: Supple. LUNGS: rare crackles HEART: S1 and S2 regular, tachy . ABDOMEN: Mildly distended, soft, no grimace or guarding to palpation. Bowel sounds present. GENITOURINARY: Indwelling Galdamez in place. Urine is dark and concentrated. EXTREMITIES: No gross edema or cyanosis IVS: Peripheral IV looks okay. SKIN: Warm to touch. He has multiple ecchymoses, especially lower extremities. NEUROLOGIC: follows some commands. General: No acute distress, Other (severely encephalopathic, SHOOK HEAD TO COMMAND) Heart: Regular rate, Normal S1, Normal S2 Lungs: Clear, Crackles, Other (symmetrical chest expansion on respiration) Abdomen: Soft, Other (hepatomegaly) Extremities: No clubbing, No cyanosis, Other (ecchymoses on extremities) Skin: Other (he is jaundiced) Labs LABS Laboratory Tests Test 01/06/19 10:10 01/06/19 17:15 01/07/19 04:20 01/07/19 09:03 Lactic Acid Level 14.9 mmol/L (0.4-2.0) 11.3 mmol/L (0.4-2.0) Ammonia 209 mcmol/L (11-34) White Blood Count 15.2 x10^3/uL (4.0-11.0) 16.0 x10^3/uL (4.0-11.0) Red Blood Count 2.40 x10^6/uL (4.30-5.70) 2.15 x10^6/uL (4.30-5.70) Hemoglobin 8.3 g/dL (13.0-17.5) 7.5 g/dL (13.0-17.5) Hematocrit 24.5 % (39.0-53.0) 21.8 % (39.0-53.0) Mean Corpuscular Volume 102 fL (79-100) 101 fL (79-100) Mean Corpuscular Hemoglobin 35 pg (25-35) 35 pg (25-35) Mean Corpuscular Hemoglobin Concent 34 g/dL (31-37) 34 g/dL (31-37) Red Cell Distribution Width 21.0 % (11.5-14.5) 21.8 % (11.5-14.5) Platelet Count 110 x10^3/uL (140-400) 121 x10^3/uL (140-400) Prothrombin Time 26.4 SEC (11.7-14.0) 27.6 SEC (11.7-14.0) Prothromb Time International Ratio 2.5 (0.8-1.1) 2.6 (0.8-1.1) Neutrophils (%) (Auto) 80 % (31-73) Lymphocytes (%) (Auto) 11 % (24-48) Monocytes (%) (Auto) 9 % (0-9) Eosinophils (%) (Auto) 0 % (0-3) Basophils (%) (Auto) 0 % (0-3) Neutrophils # (Auto) 12.8 x10^3/uL (1.8-7.7) Lymphocytes # (Auto) 1.8 x10^3/uL (1.0-4.8) Monocytes # (Auto) 1.4 x10^3/uL (0.0-1.1) Eosinophils # (Auto) 0.0 x10^3/uL (0.0-0.7) Basophils # (Auto) 0.0 x10^3/uL (0.0-0.2) Segmented Neutrophils % 80 % (35-66) Band Neutrophils % 9 % (0-9) Lymphocytes % 9 % (24-48) Monocytes % 2 % (0-10) Nucleated Red Blood Cells 1 Platelet Estimate Decreased (ADEQUATE) Anisocytosis Mod Sodium Level 148 mmol/L (136-145) Potassium Level 3.7 mmol/L (3.5-5.1) Chloride Level 113 mmol/L (98-107) Carbon Dioxide Level 21 mmol/L (21-32) Anion Gap 14 (6-14) Blood Urea Nitrogen 60 mg/dL (8-26) Creatinine 1.3 mg/dL (0.7-1.3) Estimated GFR (Cockcroft-Gault) 60.0 BUN/Creatinine Ratio 46 (6-20) Glucose Level 171 mg/dL (70-99) Calcium Level 7.8 mg/dL (8.5-10.1) Total Bilirubin 12.5 mg/dL (0.2-1.0) Aspartate Amino Transf (AST/SGOT) 309 U/L (15-37) Alanine Aminotransferase (ALT/SGPT) 154 U/L (16-63) Alkaline Phosphatase 94 U/L (46-116) Total Protein 5.2 g/dL (6.4-8.2) Albumin 2.2 g/dL (3.4-5.0) Albumin/Globulin Ratio 0.7 (1.0-1.7) Assessment and Plan Assessmemt and Plan Problems Medical Problems: (1) Alcoholic liver disease Status: Acute (2) Cholelithiasis Status: Acute (3) Colitis Status: Acute (4) Jaundice Status: Acute (5) Pancreatitis Status: Acute (6) Thrombocytopenia Status: Acute Comment Review of Relevant I have reviewed the following items pierre (where applicable) has been applied. Labs Laboratory Tests Test 01/06/19 05:00 01/06/19 08:05 01/06/19 09:30 01/06/19 09:50 Sodium Level 143 mmol/L (136-145) Potassium Level 4.3 mmol/L (3.5-5.1) Chloride Level 108 mmol/L (98-107) Carbon Dioxide Level 15 mmol/L (21-32) Anion Gap 20 (6-14) Blood Urea Nitrogen 35 mg/dL (8-26) Creatinine 1.1 mg/dL (0.7-1.3) Estimated GFR (Cockcroft-Gault) 72.7 BUN/Creatinine Ratio 32 (6-20) Glucose Level 114 mg/dL (70-99) Calcium Level 7.5 mg/dL (8.5-10.1) Total Bilirubin 10.3 mg/dL (0.2-1.0) Aspartate Amino Transf (AST/SGOT) 156 U/L (15-37) Alanine Aminotransferase (ALT/SGPT) 81 U/L (16-63) Alkaline Phosphatase 107 U/L (46-116) Total Protein 5.1 g/dL (6.4-8.2) Albumin 1.7 g/dL (3.4-5.0) Albumin/Globulin Ratio 0.5 (1.0-1.7) White Blood Count 11.6 x10^3/uL (4.0-11.0) Red Blood Count 1.78 x10^6/uL (4.30-5.70) Hemoglobin 6.6 g/dL (13.0-17.5) Hematocrit 19.9 % (39.0-53.0) Mean Corpuscular Volume 111 fL (79-100) Mean Corpuscular Hemoglobin 37 pg (25-35) Mean Corpuscular Hemoglobin Concent 33 g/dL (31-37) Red Cell Distribution Width 16.9 % (11.5-14.5) Platelet Count 105 x10^3/uL (140-400) Neutrophils (%) (Auto) 87 % (31-73) Lymphocytes (%) (Auto) 8 % (24-48) Monocytes (%) (Auto) 5 % (0-9) Eosinophils (%) (Auto) 0 % (0-3) Basophils (%) (Auto) 0 % (0-3) Neutrophils # (Auto) 10.1 x10^3/uL (1.8-7.7) Lymphocytes # (Auto) 0.9 x10^3/uL (1.0-4.8) Monocytes # (Auto) 0.6 x10^3/uL (0.0-1.1) Eosinophils # (Auto) 0.0 x10^3/uL (0.0-0.7) Basophils # (Auto) 0.0 x10^3/uL (0.0-0.2) Prothrombin Time 31.3 SEC (11.7-14.0) Prothromb Time International Ratio 3.0 (0.8-1.1) Activated Partial Thromboplast Time 38 SEC (24-38) Fibrinogen 170 mg/dL (200-440) D-Dimer (Laisha) 3.88 ug/mlFEU (0.00-0.50) O2 Saturation 94 % (92-99) Arterial Blood pH 7.47 (7.35-7.45) Arterial Blood pCO2 at Patient Temp 19 mmHg (35-46) Arterial Blood pO2 at Patient Temp 76 mmHg (75-108) Arterial Blood HCO3 14 mmol/L (21-28) Arterial Blood Base Excess -9 mmol/L (-3-3) FiO2 21 Nasal Screen MRSA (PCR) Negative (Negative) Test 01/06/19 10:10 01/06/19 17:15 01/07/19 04:20 01/07/19 09:03 Lactic Acid Level 14.9 mmol/L (0.4-2.0) 11.3 mmol/L (0.4-2.0) Ammonia 209 mcmol/L (11-34) White Blood Count 15.2 x10^3/uL (4.0-11.0) 16.0 x10^3/uL (4.0-11.0) Red Blood Count 2.40 x10^6/uL (4.30-5.70) 2.15 x10^6/uL (4.30-5.70) Hemoglobin 8.3 g/dL (13.0-17.5) 7.5 g/dL (13.0-17.5) Hematocrit 24.5 % (39.0-53.0) 21.8 % (39.0-53.0) Mean Corpuscular Volume 102 fL (79-100) 101 fL (79-100) Mean Corpuscular Hemoglobin 35 pg (25-35) 35 pg (25-35) Mean Corpuscular Hemoglobin Concent 34 g/dL (31-37) 34 g/dL (31-37) Red Cell Distribution Width 21.0 % (11.5-14.5) 21.8 % (11.5-14.5) Platelet Count 110 x10^3/uL (140-400) 121 x10^3/uL (140-400) Prothrombin Time 26.4 SEC (11.7-14.0) 27.6 SEC (11.7-14.0) Prothromb Time International Ratio 2.5 (0.8-1.1) 2.6 (0.8-1.1) Neutrophils (%) (Auto) 80 % (31-73) Lymphocytes (%) (Auto) 11 % (24-48) Monocytes (%) (Auto) 9 % (0-9) Eosinophils (%) (Auto) 0 % (0-3) Basophils (%) (Auto) 0 % (0-3) Neutrophils # (Auto) 12.8 x10^3/uL (1.8-7.7) Lymphocytes # (Auto) 1.8 x10^3/uL (1.0-4.8) Monocytes # (Auto) 1.4 x10^3/uL (0.0-1.1) Eosinophils # (Auto) 0.0 x10^3/uL (0.0-0.7) Basophils # (Auto) 0.0 x10^3/uL (0.0-0.2) Segmented Neutrophils % 80 % (35-66) Band Neutrophils % 9 % (0-9) Lymphocytes % 9 % (24-48) Monocytes % 2 % (0-10) Nucleated Red Blood Cells 1 Platelet Estimate Decreased (ADEQUATE) Anisocytosis Mod Sodium Level 148 mmol/L (136-145) Potassium Level 3.7 mmol/L (3.5-5.1) Chloride Level 113 mmol/L (98-107) Carbon Dioxide Level 21 mmol/L (21-32) Anion Gap 14 (6-14) Blood Urea Nitrogen 60 mg/dL (8-26) Creatinine 1.3 mg/dL (0.7-1.3) Estimated GFR (Cockcroft-Gault) 60.0 BUN/Creatinine Ratio 46 (6-20) Glucose Level 171 mg/dL (70-99) Calcium Level 7.8 mg/dL (8.5-10.1) Total Bilirubin 12.5 mg/dL (0.2-1.0) Aspartate Amino Transf (AST/SGOT) 309 U/L (15-37) Alanine Aminotransferase (ALT/SGPT) 154 U/L (16-63) Alkaline Phosphatase 94 U/L (46-116) Total Protein 5.2 g/dL (6.4-8.2) Albumin 2.2 g/dL (3.4-5.0) Albumin/Globulin Ratio 0.7 (1.0-1.7) Laboratory Tests Test 01/06/19 10:10 01/06/19 17:15 01/07/19 04:20 01/07/19 09:03 Lactic Acid Level 14.9 mmol/L (0.4-2.0) 11.3 mmol/L (0.4-2.0) Ammonia 209 mcmol/L (11-34) White Blood Count 15.2 x10^3/uL (4.0-11.0) 16.0 x10^3/uL (4.0-11.0) Red Blood Count 2.40 x10^6/uL (4.30-5.70) 2.15 x10^6/uL (4.30-5.70) Hemoglobin 8.3 g/dL (13.0-17.5) 7.5 g/dL (13.0-17.5) Hematocrit 24.5 % (39.0-53.0) 21.8 % (39.0-53.0) Mean Corpuscular Volume 102 fL (79-100) 101 fL (79-100) Mean Corpuscular Hemoglobin 35 pg (25-35) 35 pg (25-35) Mean Corpuscular Hemoglobin Concent 34 g/dL (31-37) 34 g/dL (31-37) Red Cell Distribution Width 21.0 % (11.5-14.5) 21.8 % (11.5-14.5) Platelet Count 110 x10^3/uL (140-400) 121 x10^3/uL (140-400) Prothrombin Time 26.4 SEC (11.7-14.0) 27.6 SEC (11.7-14.0) Prothromb Time International Ratio 2.5 (0.8-1.1) 2.6 (0.8-1.1) Neutrophils (%) (Auto) 80 % (31-73) Lymphocytes (%) (Auto) 11 % (24-48) Monocytes (%) (Auto) 9 % (0-9) Eosinophils (%) (Auto) 0 % (0-3) Basophils (%) (Auto) 0 % (0-3) Neutrophils # (Auto) 12.8 x10^3/uL (1.8-7.7) Lymphocytes # (Auto) 1.8 x10^3/uL (1.0-4.8) Monocytes # (Auto) 1.4 x10^3/uL (0.0-1.1) Eosinophils # (Auto) 0.0 x10^3/uL (0.0-0.7) Basophils # (Auto) 0.0 x10^3/uL (0.0-0.2) Segmented Neutrophils % 80 % (35-66) Band Neutrophils % 9 % (0-9) Lymphocytes % 9 % (24-48) Monocytes % 2 % (0-10) Nucleated Red Blood Cells 1 Platelet Estimate Decreased (ADEQUATE) Anisocytosis Mod Sodium Level 148 mmol/L (136-145) Potassium Level 3.7 mmol/L (3.5-5.1) Chloride Level 113 mmol/L (98-107) Carbon Dioxide Level 21 mmol/L (21-32) Anion Gap 14 (6-14) Blood Urea Nitrogen 60 mg/dL (8-26) Creatinine 1.3 mg/dL (0.7-1.3) Estimated GFR (Cockcroft-Gault) 60.0 BUN/Creatinine Ratio 46 (6-20) Glucose Level 171 mg/dL (70-99) Calcium Level 7.8 mg/dL (8.5-10.1) Total Bilirubin 12.5 mg/dL (0.2-1.0) Aspartate Amino Transf (AST/SGOT) 309 U/L (15-37) Alanine Aminotransferase (ALT/SGPT) 154 U/L (16-63) Alkaline Phosphatase 94 U/L (46-116) Total Protein 5.2 g/dL (6.4-8.2) Albumin 2.2 g/dL (3.4-5.0) Albumin/Globulin Ratio 0.7 (1.0-1.7) Medications Current Medications Iohexol (Omnipaque 240 Mg/ml) 30 ml 1X ONCE PO Last administered on 01/04/19at 15:15; Start 01/04/19 at 15:15; Stop 01/04/19 at 15:17; Status DC Iohexol (Omnipaque 300 Mg/ml) 75 ml 1X ONCE IV Last administered on 01/04/19at 16:20; Start 01/04/19 at 15:15; Stop 01/04/19 at 15:17; Status DC Info (CONTRAST GIVEN -- Rx MONITORING) 1 each PRN DAILY PRN MC SEE COMMENTS; Start 01/04/19 at 15:30; Stop 01/06/19 at 15:29; Status DC Multivitamins 10 ml/Thiamine HCl 100 mg/Folic Acid 1 mg/Sodium Chloride 1,011.2 ml @ 100 mls/ hr DAILY IV Last administered on 01/07/19at 08:03; Start 01/04/19 at 18:00; Stop 01/08/19 at 19:07 Chlordiazepoxide (Librium) 50 mg PRN Q1HR PRN PO For CIWA 8-14 Last administered on 01/04/19at 18:17; Start 01/04/19 at 17:45 Chlordiazepoxide (Librium) 100 mg PRN Q1HR PRN PO For CIWA 15 or greater Last administered on 01/05/19at 06:27; Start 01/04/19 at 17:45 Lorazepam (Ativan) 4 mg PRN Q1HR PRN PO For CIWA 8-14 Last administered on 01/04/19at 18:17; Start 01/04/19 at 17:45 Lorazepam (Ativan) 8 mg PRN Q1HR PRN PO For CIWA 15 or greater; Start 01/04/19 at 17:45 Haloperidol Lactate (Haldol Inj) 5 mg PRN Q4HRS PRN IVP Hallucinatns,Confusn,Delirium; Start 01/04/19 at 17:45 Diphenhydramine HCl (Benadryl) 25 mg PRN Q15MIN PRN IVP EPS symptoms 2'Haldol admin; Start 01/04/19 at 17:45 Clonidine HCl (Catapres) 0.1 mg PRN Q1HR PRN PO SBP > 180 or DBP > 100, MRX3; Start 01/04/19 at 17:45 Lorazepam (Ativan Inj) 2 mg PRN Q1HR PRN IV For CIWA 8-14 Last administered on 01/04/19at 21:08; Start 01/04/19 at 19:15 Lorazepam (Ativan Inj) 4 mg PRN Q1HR PRN IV For CIWA 15 or greater Last administered on 01/05/19at 06:28; Start 01/04/19 at 19:15 Lorazepam (Ativan Inj) 2 mg PRN Q15MIN PRN IV SEE COMMENTS; Start 01/04/19 at 19:15; Status UNV Lorazepam (Ativan Inj) 4 mg PRN Q15MIN PRN IV SEE COMMENTS; Start 01/04/19 at 19:15; Status UNV Ondansetron HCl (Zofran) 4 mg PRN Q6HRS PRN IV NAUSEA/VOMITING Last administered on 01/04/19at 19:34; Start 01/04/19 at 19:30 Pantoprazole Sodium (PROTONIX VIAL for IV PUSH) 40 mg DAILYAC IVP Last administered on 01/06/19at 10:36; Start 01/06/19 at 10:00; Stop 01/06/19 at 12:17; Status DC Phytonadione (Vitamin K Ampule) 10 mg 1X ONCE SQ Last administered on 01/06/19at 10:36; Start 01/06/19 at 10:15; Stop 01/06/19 at 10:16; Status DC Piperacillin Sod/ Tazobactam Sod (Zosyn Per Pharmacy) 1 each PRN DAILY PRN MC SEE COMMENTS; Start 01/06/19 at 10:30 Piperacillin Sod/ Tazobactam Sod 3.375 gm/Sodium Chloride 50 ml @ 100 mls/hr Q6HRS IV Last administered on 01/07/19at 06:04; Start 01/06/19 at 11:00 Lactulose (Lactulose) 30 gm Q6HRS NG Last administered on 01/07/19at 06:04; Start 01/06/19 at 12:00 Metronidazole 100 ml @ 100 mls/hr Q8HRS IV Last administered on 01/07/19at 06:43; Start 01/06/19 at 14:00 Pantoprazole Sodium 80 mg/ Sodium Chloride 100 ml @ 10 mls/hr Q10H IV Last administered on 01/07/19at 00:02; Start 01/06/19 at 12:30 Octreotide Acetate 500 mcg/ Sodium Chloride 101 ml @ 0 mls/hr CONT PRN IV SEE I/O RECORD Last administered on 01/06/19at 15:06; Start 01/06/19 at 12:15 Norepinephrine Bitartrate 250 ml @ 14.235 mls/ hr CONT PRN IV SEE I/O RECORD; Start 01/06/19 at 20:15 Albumin Human 100 ml @ 100 mls/hr 1X ONCE IV Last administered on 01/06/19at 21:30; Start 01/06/19 at 20:15; Stop 01/06/19 at 21:14; Status DC Active Scripts Active Reported Omeprazole 40 Mg Capsule. 1 Cap PO DAILY Vitals/I & O Vital Sign - Last 24 Hours 01/06/19 01/06/19 01/06/19 01/06/19 10:15 10:30 10:30 10:45 Temp 98.9 98.3 98.9 98.3 Pulse 124 124 124 120 Resp 28 30 25 25 B/P (MAP) 86/52 (63) 86/52 92/49 (63) 92/49 Pulse Ox 97 97 O2 Delivery Nasal Cannula Nasal Cannula O2 Flow Rate 4.0 4.0 01/06/19 01/06/19 01/06/19 01/06/19 10:45 11:00 11:00 11:30 Pulse 120 120 122 Resp 25 26 26 B/P (MAP) 82/45 (57) 79/42 (54) 93/52 (66) Pulse Ox 99 97 98 O2 Delivery Nasal Cannula Nasal Cannula Nasal Cannula Nasal Cannula O2 Flow Rate 4.0 4.0 4.0 2.0 01/06/19 01/06/19 01/06/19 01/06/19 12:00 12:40 13:00 13:00 Temp 98.3 98.3 98.3 98.5 98.3 98.3 98.3 98.5 Pulse 122 122 122 124 Resp 28 B/P (MAP) 95/49 (64) 99/54 96/50 (65) 96/50 Pulse Ox 97 96 O2 Delivery Nasal Cannula Nasal Cannula O2 Flow Rate 2.0 2.0 01/06/19 01/06/19 01/06/19 01/06/19 13:00 13:55 14:00 14:10 Temp 98.5 98.7 98.7 98.6 98.5 98.7 98.7 98.6 Pulse 124 124 124 124 Resp 25 B/P (MAP) 96/50 116/59 104/62 (76) 101/59 Pulse Ox 96 O2 Delivery Nasal Cannula O2 Flow Rate 2.0 01/06/19 01/06/19 01/06/19 01/06/19 15:00 15:10 15:47 16:00 Temp 98.6 98.6 98.7 98.7 98.6 98.6 98.7 98.7 Pulse 124 124 121 119 Resp B/P (MAP) 98/61 (73) 98/61 100/62 103/58 (73) Pulse Ox 98 93 O2 Delivery Nasal Cannula Nasal Cannula O2 Flow Rate 2.0 2.0 01/06/19 01/06/19 01/06/19 01/06/19 16:00 17:00 18:00 19:00 Pulse 121 117 118 Resp B/P (MAP) 98/57 (71) 94/51 (65) 85/54 (64) Pulse Ox 94 93 91 O2 Delivery Nasal Cannula Nasal Cannula Nasal Cannula Nasal Cannula O2 Flow Rate 2.0 2.0 2.0 2.0 01/06/19 01/06/19 01/06/19 01/06/19 20:00 20:00 21:00 22:00 Temp 100.0 100.0 Pulse 120 120 121 Resp 23 B/P (MAP) 85/51 (62) 100/58 (72) 95/51 (66) Pulse Ox 90 94 94 O2 Delivery Nasal Cannula Nasal Cannula Nasal Cannula Nasal Cannula O2 Flow Rate 2.0 2.0 4.0 4.0 01/06/19 01/06/19 01/07/19 01/07/19 23:00 23:59 00:01 01:00 Temp 100.2 100.2 Pulse 118 118 117 Resp B/P (MAP) 93/54 (67) 93/53 (66) 94/52 (66) Pulse Ox 92 94 93 O2 Delivery Nasal Cannula Nasal Cannula Nasal Cannula Nasal Cannula O2 Flow Rate 4.0 6.0 6.0 4.0 01/07/19 01/07/19 01/07/19 01/07/19 02:00 03:00 04:00 04:00 Temp 99.9 99.9 Pulse 117 117 113 Resp B/P (MAP) 94/22 (46) 100/50 (67) 95/58 (70) Pulse Ox 93 93 93 O2 Delivery Nasal Cannula Nasal Cannula Nasal Cannula Nasal Cannula O2 Flow Rate 6.0 6.0 6.0 6.0 01/07/19 01/07/19 01/07/19 01/07/19 05:00 06:00 07:00 08:00 Temp 98.0 98.0 Pulse 113 114 113 Resp B/P (MAP) 98/56 (70) 113/60 (77) 108/67 (81) Pulse Ox 93 93 92 O2 Delivery Nasal Cannula Nasal Cannula Nasal Cannula Venturi Mask O2 Flow Rate 6.0 6.0 6.0 01/07/19 01/07/19 08:00 09:00 Pulse 109 108 Resp 20 B/P (MAP) 98/53 (68) 98/53 (68) Pulse Ox 90 90 O2 Delivery Venturi Mask Venturi Mask Intake and Output 01/06/19 01/06/19 01/07/19 15:00 23:00 07:00 Intake Total 1441 ml 2433 ml 213.36 ml Output Total 1050 ml 605 ml 750 ml Balance 391 ml 1828 ml -536.64 ml DANG OWUSU MD Jan 07, 2019 10:02
[2019-01-07] MEDS: OCTREOTIDE 500 MCG in IV NORMAL SALINE 100ML 100 ML IV PRN (10:12)
[2019-01-07] MEDS ORDERED: PHYTONADIONE 10 MG/ML AMPUL. SQ ONE (11:45)
--- NOTE | 2019-01-07 12:06 | RAD ---
Single view of the chest. 01/07/2019 11:19 AM Indication: Fever, sepsis Comparison: None Findings: Enteric tube is noted extending into the stomach. No pneumothorax is seen. Low lung volumes with minimal dependent atelectasis. The present. Heart size is within normal limits. Bony thorax is grossly intact. IMPRESSION: 1. Enteric tube extending to stomach 2. Low lung volumes with minimal dependent atelectasis Electronically signed by: Nicho Dominguez MD (01/07/2019 12:03 PM) [id number]
--- NOTE | 2019-01-07 12:34 | NUR ---
SS following for discharge planning. SS reviewed pt chart. Pt is a self pay pt. HCFS following for self pay status. Pt is from home with spouse and is currently requiring oxygen support. Per records pt has issues with alcohol use on a daily basis. Per pt's RN, pt not stable for the PAT team at this time. PT/OT ordered. SS will continue to follow for discharge planning.
--- NOTE | 2019-01-07 12:38 | PDOC ---
PROGRESS NOTES Subjective Subjective HPI - f/u of Thrombocytopenia. ROS - nonverbal, black loose stools w/ lactulose Objective Objective Vital Signs Date Time Temp Pulse Resp B/P (MAP) Pulse Ox O2 Delivery O2 Flow Rate FiO2 01/07/19 10:00 114 23 108/67 (81) 91 Venturi Mask 01/07/19 07:00 98.0 6.0 98.0 Intake and Output 01/07/19 06:59 Intake Total 3937.36 ml Output Total 2405 ml Balance 1532.36 ml Intake Oral 0 ml IV Total 1354.36 ml Blood Product 1092 ml Blood Product IV Normal Saline Flush 1491 ml Output Urine Total 2405 ml Physical Exam Heart: Normal S1, Normal S2 General: No acute distress Lungs: Clear to auscultation Assessment Assessment Problems Medical Problems: (1) Alcoholic liver disease Status: Acute (2) Cholelithiasis Status: Acute (3) Colitis Status: Acute (4) Jaundice Status: Acute (5) Pancreatitis Status: Acute (6) Thrombocytopenia Status: Acute Imp/Plan: 1. Thrombocytopenia. Secondary to liver dysfunction. Improved a little from admission. Plt 121 2. Coagulopathy from liver failure. Given vit k 3. ?hepatic mass. If he improves would eventually get an MRI to further evaluate, but if not would not pursue 4. Liver failure. Most likely secondary to etoh 5. Colitis. On abx as per primary team 6. Anemia, Hb 7.5. monitor cbc. Comment Review of Relevant I have reviewed the following items pierre (where applicable) has been applied. Labs Laboratory Tests Test 01/06/19 05:00 01/06/19 08:05 01/06/19 09:30 01/06/19 09:50 Sodium Level 143 mmol/L (136-145) Potassium Level 4.3 mmol/L (3.5-5.1) Chloride Level 108 mmol/L (98-107) Carbon Dioxide Level 15 mmol/L (21-32) Anion Gap 20 (6-14) Blood Urea Nitrogen 35 mg/dL (8-26) Creatinine 1.1 mg/dL (0.7-1.3) Estimated GFR (Cockcroft-Gault) 72.7 BUN/Creatinine Ratio 32 (6-20) Glucose Level 114 mg/dL (70-99) Calcium Level 7.5 mg/dL (8.5-10.1) Total Bilirubin 10.3 mg/dL (0.2-1.0) Aspartate Amino Transf (AST/SGOT) 156 U/L (15-37) Alanine Aminotransferase (ALT/SGPT) 81 U/L (16-63) Alkaline Phosphatase 107 U/L (46-116) Total Protein 5.1 g/dL (6.4-8.2) Albumin 1.7 g/dL (3.4-5.0) Albumin/Globulin Ratio 0.5 (1.0-1.7) White Blood Count 11.6 x10^3/uL (4.0-11.0) Red Blood Count 1.78 x10^6/uL (4.30-5.70) Hemoglobin 6.6 g/dL (13.0-17.5) Hematocrit 19.9 % (39.0-53.0) Mean Corpuscular Volume 111 fL (79-100) Mean Corpuscular Hemoglobin 37 pg (25-35) Mean Corpuscular Hemoglobin Concent 33 g/dL (31-37) Red Cell Distribution Width 16.9 % (11.5-14.5) Platelet Count 105 x10^3/uL (140-400) Neutrophils (%) (Auto) 87 % (31-73) Lymphocytes (%) (Auto) 8 % (24-48) Monocytes (%) (Auto) 5 % (0-9) Eosinophils (%) (Auto) 0 % (0-3) Basophils (%) (Auto) 0 % (0-3) Neutrophils # (Auto) 10.1 x10^3/uL (1.8-7.7) Lymphocytes # (Auto) 0.9 x10^3/uL (1.0-4.8) Monocytes # (Auto) 0.6 x10^3/uL (0.0-1.1) Eosinophils # (Auto) 0.0 x10^3/uL (0.0-0.7) Basophils # (Auto) 0.0 x10^3/uL (0.0-0.2) Prothrombin Time 31.3 SEC (11.7-14.0) Prothromb Time International Ratio 3.0 (0.8-1.1) Activated Partial Thromboplast Time 38 SEC (24-38) Fibrinogen 170 mg/dL (200-440) D-Dimer (Laisha) 3.88 ug/mlFEU (0.00-0.50) O2 Saturation 94 % (92-99) Arterial Blood pH 7.47 (7.35-7.45) Arterial Blood pCO2 at Patient Temp 19 mmHg (35-46) Arterial Blood pO2 at Patient Temp 76 mmHg (75-108) Arterial Blood HCO3 14 mmol/L (21-28) Arterial Blood Base Excess -9 mmol/L (-3-3) FiO2 21 Nasal Screen MRSA (PCR) Negative (Negative) Test 01/06/19 10:10 01/06/19 17:15 01/07/19 04:20 01/07/19 09:03 Lactic Acid Level 14.9 mmol/L (0.4-2.0) 11.3 mmol/L (0.4-2.0) Ammonia 209 mcmol/L (11-34) White Blood Count 15.2 x10^3/uL (4.0-11.0) 16.0 x10^3/uL (4.0-11.0) Red Blood Count 2.40 x10^6/uL (4.30-5.70) 2.15 x10^6/uL (4.30-5.70) Hemoglobin 8.3 g/dL (13.0-17.5) 7.5 g/dL (13.0-17.5) Hematocrit 24.5 % (39.0-53.0) 21.8 % (39.0-53.0) Mean Corpuscular Volume 102 fL (79-100) 101 fL (79-100) Mean Corpuscular Hemoglobin 35 pg (25-35) 35 pg (25-35) Mean Corpuscular Hemoglobin Concent 34 g/dL (31-37) 34 g/dL (31-37) Red Cell Distribution Width 21.0 % (11.5-14.5) 21.8 % (11.5-14.5) Platelet Count 110 x10^3/uL (140-400) 121 x10^3/uL (140-400) Prothrombin Time 26.4 SEC (11.7-14.0) 27.6 SEC (11.7-14.0) Prothromb Time International Ratio 2.5 (0.8-1.1) 2.6 (0.8-1.1) Neutrophils (%) (Auto) 80 % (31-73) Lymphocytes (%) (Auto) 11 % (24-48) Monocytes (%) (Auto) 9 % (0-9) Eosinophils (%) (Auto) 0 % (0-3) Basophils (%) (Auto) 0 % (0-3) Neutrophils # (Auto) 12.8 x10^3/uL (1.8-7.7) Lymphocytes # (Auto) 1.8 x10^3/uL (1.0-4.8) Monocytes # (Auto) 1.4 x10^3/uL (0.0-1.1) Eosinophils # (Auto) 0.0 x10^3/uL (0.0-0.7) Basophils # (Auto) 0.0 x10^3/uL (0.0-0.2) Segmented Neutrophils % 80 % (35-66) Band Neutrophils % 9 % (0-9) Lymphocytes % 9 % (24-48) Monocytes % 2 % (0-10) Nucleated Red Blood Cells 1 Platelet Estimate Decreased (ADEQUATE) Anisocytosis Mod Sodium Level 148 mmol/L (136-145) Potassium Level 3.7 mmol/L (3.5-5.1) Chloride Level 113 mmol/L (98-107) Carbon Dioxide Level 21 mmol/L (21-32) Anion Gap 14 (6-14) Blood Urea Nitrogen 60 mg/dL (8-26) Creatinine 1.3 mg/dL (0.7-1.3) Estimated GFR (Cockcroft-Gault) 60.0 BUN/Creatinine Ratio 46 (6-20) Glucose Level 171 mg/dL (70-99) Calcium Level 7.8 mg/dL (8.5-10.1) Total Bilirubin 12.5 mg/dL (0.2-1.0) Aspartate Amino Transf (AST/SGOT) 309 U/L (15-37) Alanine Aminotransferase (ALT/SGPT) 154 U/L (16-63) Alkaline Phosphatase 94 U/L (46-116) Total Protein 5.2 g/dL (6.4-8.2) Albumin 2.2 g/dL (3.4-5.0) Albumin/Globulin Ratio 0.7 (1.0-1.7) Laboratory Tests Test 01/06/19 17:15 01/07/19 04:20 01/07/19 09:03 White Blood Count 15.2 x10^3/uL (4.0-11.0) 16.0 x10^3/uL (4.0-11.0) Red Blood Count 2.40 x10^6/uL (4.30-5.70) 2.15 x10^6/uL (4.30-5.70) Hemoglobin 8.3 g/dL (13.0-17.5) 7.5 g/dL (13.0-17.5) Hematocrit 24.5 % (39.0-53.0) 21.8 % (39.0-53.0) Mean Corpuscular Volume 102 fL (79-100) 101 fL (79-100) Mean Corpuscular Hemoglobin 35 pg (25-35) 35 pg (25-35) Mean Corpuscular Hemoglobin Concent 34 g/dL (31-37) 34 g/dL (31-37) Red Cell Distribution Width 21.0 % (11.5-14.5) 21.8 % (11.5-14.5) Platelet Count 110 x10^3/uL (140-400) 121 x10^3/uL (140-400) Prothrombin Time 26.4 SEC (11.7-14.0) 27.6 SEC (11.7-14.0) Prothromb Time International Ratio 2.5 (0.8-1.1) 2.6 (0.8-1.1) Lactic Acid Level 11.3 mmol/L (0.4-2.0) Neutrophils (%) (Auto) 80 % (31-73) Lymphocytes (%) (Auto) 11 % (24-48) Monocytes (%) (Auto) 9 % (0-9) Eosinophils (%) (Auto) 0 % (0-3) Basophils (%) (Auto) 0 % (0-3) Neutrophils # (Auto) 12.8 x10^3/uL (1.8-7.7) Lymphocytes # (Auto) 1.8 x10^3/uL (1.0-4.8) Monocytes # (Auto) 1.4 x10^3/uL (0.0-1.1) Eosinophils # (Auto) 0.0 x10^3/uL (0.0-0.7) Basophils # (Auto) 0.0 x10^3/uL (0.0-0.2) Segmented Neutrophils % 80 % (35-66) Band Neutrophils % 9 % (0-9) Lymphocytes % 9 % (24-48) Monocytes % 2 % (0-10) Nucleated Red Blood Cells 1 Platelet Estimate Decreased (ADEQUATE) Anisocytosis Mod Sodium Level 148 mmol/L (136-145) Potassium Level 3.7 mmol/L (3.5-5.1) Chloride Level 113 mmol/L (98-107) Carbon Dioxide Level 21 mmol/L (21-32) Anion Gap 14 (6-14) Blood Urea Nitrogen 60 mg/dL (8-26) Creatinine 1.3 mg/dL (0.7-1.3) Estimated GFR (Cockcroft-Gault) 60.0 BUN/Creatinine Ratio 46 (6-20) Glucose Level 171 mg/dL (70-99) Calcium Level 7.8 mg/dL (8.5-10.1) Total Bilirubin 12.5 mg/dL (0.2-1.0) Aspartate Amino Transf (AST/SGOT) 309 U/L (15-37) Alanine Aminotransferase (ALT/SGPT) 154 U/L (16-63) Alkaline Phosphatase 94 U/L (46-116) Total Protein 5.2 g/dL (6.4-8.2) Albumin 2.2 g/dL (3.4-5.0) Albumin/Globulin Ratio 0.7 (1.0-1.7) Medications Current Medications Iohexol (Omnipaque 240 Mg/ml) 30 ml 1X ONCE PO Last administered on 01/04/19at 15:15; Start 01/04/19 at 15:15; Stop 01/04/19 at 15:17; Status DC Iohexol (Omnipaque 300 Mg/ml) 75 ml 1X ONCE IV Last administered on 01/04/19at 16:20; Start 01/04/19 at 15:15; Stop 01/04/19 at 15:17; Status DC Info (CONTRAST GIVEN -- Rx MONITORING) 1 each PRN DAILY PRN MC SEE COMMENTS; Start 01/04/19 at 15:30; Stop 01/06/19 at 15:29; Status DC Multivitamins 10 ml/Thiamine HCl 100 mg/Folic Acid 1 mg/Sodium Chloride 1,011.2 ml @ 100 mls/ hr DAILY IV Last administered on 01/07/19at 08:03; Start 01/04/19 at 18:00; Stop 01/08/19 at 19:07 Chlordiazepoxide (Librium) 50 mg PRN Q1HR PRN PO For CIWA 8-14 Last administered on 01/04/19at 18:17; Start 01/04/19 at 17:45 Chlordiazepoxide (Librium) 100 mg PRN Q1HR PRN PO For CIWA 15 or greater Last administered on 01/05/19at 06:27; Start 01/04/19 at 17:45 Lorazepam (Ativan) 4 mg PRN Q1HR PRN PO For CIWA 8-14 Last administered on 01/04/19at 18:17; Start 01/04/19 at 17:45 Lorazepam (Ativan) 8 mg PRN Q1HR PRN PO For CIWA 15 or greater; Start 01/04/19 at 17:45 Haloperidol Lactate (Haldol Inj) 5 mg PRN Q4HRS PRN IVP Hallucinatns,Confusn,Delirium; Start 01/04/19 at 17:45 Diphenhydramine HCl (Benadryl) 25 mg PRN Q15MIN PRN IVP EPS symptoms 2'Haldol admin; Start 01/04/19 at 17:45 Clonidine HCl (Catapres) 0.1 mg PRN Q1HR PRN PO SBP > 180 or DBP > 100, MRX3; Start 01/04/19 at 17:45 Lorazepam (Ativan Inj) 2 mg PRN Q1HR PRN IV For CIWA 8-14 Last administered on 01/04/19at 21:08; Start 01/04/19 at 19:15 Lorazepam (Ativan Inj) 4 mg PRN Q1HR PRN IV For CIWA 15 or greater Last administered on 01/05/19at 06:28; Start 01/04/19 at 19:15 Lorazepam (Ativan Inj) 2 mg PRN Q15MIN PRN IV SEE COMMENTS; Start 01/04/19 at 19:15; Status UNV Lorazepam (Ativan Inj) 4 mg PRN Q15MIN PRN IV SEE COMMENTS; Start 01/04/19 at 19:15; Status UNV Ondansetron HCl (Zofran) 4 mg PRN Q6HRS PRN IV NAUSEA/VOMITING Last administered on 01/04/19at 19:34; Start 01/04/19 at 19:30 Pantoprazole Sodium (PROTONIX VIAL for IV PUSH) 40 mg DAILYAC IVP Last administered on 01/06/19at 10:36; Start 01/06/19 at 10:00; Stop 01/06/19 at 12:17; Status DC Phytonadione (Vitamin K Ampule) 10 mg 1X ONCE SQ Last administered on 01/06/19at 10:36; Start 01/06/19 at 10:15; Stop 01/06/19 at 10:16; Status DC Piperacillin Sod/ Tazobactam Sod (Zosyn Per Pharmacy) 1 each PRN DAILY PRN MC SEE COMMENTS; Start 01/06/19 at 10:30 Piperacillin Sod/ Tazobactam Sod 3.375 gm/Sodium Chloride 50 ml @ 100 mls/hr Q6HRS IV Last administered on 01/07/19at 11:13; Start 01/06/19 at 11:00 Lactulose (Lactulose) 30 gm Q6HRS NG Last administered on 01/07/19at 11:14; Start 01/06/19 at 12:00 Metronidazole 100 ml @ 100 mls/hr Q8HRS IV Last administered on 01/07/19at 06:43; Start 01/06/19 at 14:00 Pantoprazole Sodium 80 mg/ Sodium Chloride 100 ml @ 10 mls/hr Q10H IV Last administered on 01/07/19at 10:12; Start 01/06/19 at 12:30 Octreotide Acetate 500 mcg/ Sodium Chloride 101 ml @ 0 mls/hr CONT PRN IV SEE I/O RECORD Last administered on 01/07/19at 10:12; Start 01/06/19 at 12:15 Norepinephrine Bitartrate 250 ml @ 14.235 mls/ hr CONT PRN IV SEE I/O RECORD; Start 01/06/19 at 20:15 Albumin Human 100 ml @ 100 mls/hr 1X ONCE IV Last administered on 01/06/19at 21:30; Start 01/06/19 at 20:15; Stop 01/06/19 at 21:14; Status DC Phytonadione (Vitamin K Ampule) 10 mg 1X ONCE SQ ; Start 01/07/19 at 11:45; Stop 01/07/19 at 11:46; Status DC Albuterol/ Ipratropium (Duoneb) 3 ml RTQID NEB ; Start 01/07/19 at 16:00 Active Scripts Active Reported Omeprazole 40 Mg Capsule. 1 Cap PO DAILY Vitals/I & O Vital Sign - Last 24 Hours 01/06/19 01/06/19 01/06/19 01/06/19 12:40 13:00 13:00 13:00 Temp 98.3 98.3 98.5 98.5 98.3 98.3 98.5 98.5 Pulse 122 122 124 124 Resp 28 28 B/P (MAP) 99/54 96/50 (65) 96/50 96/50 Pulse Ox 96 O2 Delivery Nasal Cannula O2 Flow Rate 2.0 01/06/19 01/06/19 01/06/19 01/06/19 13:55 14:00 14:10 15:00 Temp 98.7 98.7 98.6 98.6 98.7 98.7 98.6 98.6 Pulse 124 124 124 124 Resp 25 25 25 22 B/P (MAP) 116/59 104/62 (76) 101/59 98/61 (73) Pulse Ox 96 98 O2 Delivery Nasal Cannula Nasal Cannula O2 Flow Rate 2.0 2.0 01/06/19 01/06/19 01/06/19 01/06/19 15:10 15:47 16:00 16:00 Temp 98.6 98.7 98.7 98.6 98.7 98.7 Pulse 124 121 119 Resp 22 22 23 B/P (MAP) 98/61 100/62 103/58 (73) Pulse Ox 93 O2 Delivery Nasal Cannula Nasal Cannula O2 Flow Rate 2.0 2.0 01/06/19 01/06/19 01/06/19 01/06/19 17:00 18:00 19:00 20:00 Pulse 121 117 118 Resp 24 23 B/P (MAP) 98/57 (71) 94/51 (65) 85/54 (64) Pulse Ox 94 93 91 O2 Delivery Nasal Cannula Nasal Cannula Nasal Cannula Nasal Cannula O2 Flow Rate 2.0 2.0 2.0 2.0 01/06/19 01/06/19 01/06/19 01/06/19 20:00 21:00 22:00 23:00 Temp 100.0 100.0 Pulse 120 120 121 118 Resp 24 22 B/P (MAP) 85/51 (62) 100/58 (72) 95/51 (66) 93/54 (67) Pulse Ox 90 94 94 92 O2 Delivery Nasal Cannula Nasal Cannula Nasal Cannula Nasal Cannula O2 Flow Rate 2.0 4.0 4.0 4.0 01/06/19 01/07/19 01/07/19 01/07/19 23:59 00:01 01:00 02:00 Temp 100.2 100.2 Pulse 118 117 117 Resp B/P (MAP) 93/53 (66) 94/52 (66) 94/22 (46) Pulse Ox 94 93 93 O2 Delivery Nasal Cannula Nasal Cannula Nasal Cannula Nasal Cannula O2 Flow Rate 6.0 6.0 4.0 6.0 01/07/19 01/07/19 01/07/19 01/07/19 03:00 04:00 04:00 05:00 Temp 99.9 99.9 Pulse 117 113 113 Resp B/P (MAP) 100/50 (67) 95/58 (70) 98/56 (70) Pulse Ox 93 93 93 O2 Delivery Nasal Cannula Nasal Cannula Nasal Cannula Nasal Cannula O2 Flow Rate 6.0 6.0 6.0 6.0 01/07/19 01/07/19 01/07/19 01/07/19 06:00 07:00 08:00 08:00 Temp 98.0 98.0 Pulse 114 113 109 Resp 18 B/P (MAP) 113/60 (77) 108/67 (81) 98/53 (68) Pulse Ox 93 92 90 O2 Delivery Nasal Cannula Nasal Cannula Venturi Mask Venturi Mask O2 Flow Rate 6.0 6.0 01/07/19 01/07/19 09:00 10:00 Pulse 108 114 Resp 23 B/P (MAP) 98/53 (68) 108/67 (81) Pulse Ox 90 91 O2 Delivery Venturi Mask Venturi Mask Intake and Output 01/06/19 01/06/19 01/07/19 14:59 22:59 06:59 Intake Total 1441 ml 2433 ml 63.36 ml Output Total 800 ml 755 ml 850 ml Balance 641 ml 1678 ml -786.64 ml ISHAAN GIFFORD MD Jan 07, 2019 12:38
--- NOTE | 2019-01-07 12:48 | RAD ---
Indication:Right upper quadrant pain. TECHNIQUE: Grayscale, color Doppler and spectral waveform is of the abdomen obtained. COMPARISON: CT from 01/04/2019. FINDINGS: IVC is patent. No aortic aneurysm. Liver is mildly enlarged measuring 19 cm in longest dimension with diffusely increased echogenicity and decreased through transmission. Main portal vein is patent. Trace amount of pericholecystic fluid noted. Gallbladder wall is thickened measuring 8 mm in thickness. Gallbladder sludge noted. CBD measures 6 mm in diameter and is mildly dilated. Right kidney measures 12 cm in length without hydronephrosis. Left kidney measures 12.7 cm in length without hydronephrosis. Trace amount of perihepatic fluid noted. 5.4 x 3.1 x 3.8 cm lesion is seen in the liver corresponding to abnormality seen on CT. IMPRESSION: 1. Mild hepatomegaly with hepatic steatosis. 2. Distended gallbladder with gallbladder wall thickening and trace pericholecystic fluid with gallbladder sludge. Findings are concerning for acute cholecystitis in appropriate clinical setting. If concern persists further evaluation with HIDA scan is recommended. 3. Caudate lobe mass also seen on CT. Nonemergent MRI of the abdomen with IV contrast is recommended. Electronically signed by: Denzel Barakat DO (01/07/2019 12:45 PM) [facility]
--- NOTE | 2019-01-07 13:27 | CONS ---
DATE OF CONSULTATION: PULMONARY CONSULTATION NOTE ATTENDING PHYSICIAN: Davie Frias DO REASON FOR CONSULTATION: Respiratory failure. HISTORY OF PRESENT ILLNESS: The patient is a 43-year-old male who has history of alcoholism. He presented to the hospital with encephalopathy. He has been drinking quite heavily for the last 22 years, averaging about 30-60 beers a day per the initial note. He tried to quit drinking few times, but failed. He was referred to the Emergency Room by his PCP for abnormal labs. He underwent CT abdomen and pelvis and this concerning for severe colitis and acute cholecystitis along with ascites esophagitis and duodenitis and cirrhosis. Hepatic neoplasm was also a concern. The patient was seen by Infectious Disease and broad-spectrum antibiotics were initiated. He continues to decline. He is not responsive, is currently on a Venturi mask. Saturations are 96%. He had highly abnormal bilirubin up to 12, which has been progressively rising. The patient has been seen by GI and multiple other specialties. He has coagulopathy with an INR of 2.6. D-dimer was 3.8. He has developed a lactic acidosis and severe metabolic acidosis. He is also anemic. I have been asked to see him for further evaluation. I have reviewed his chest x-ray and it shows low lung volumes with dependent basal atelectasis. His another CT abdomen and pelvis is done today, report is pending and the previous CT on admission on the showed suspected severe colitis, possible colonic neoplasm. Cirrhosis. In addition, there was a concerning new hepatic neoplasm. PAST MEDICAL HISTORY: History of heavy alcoholism and history of cirrhosis. PAST SURGICAL HISTORY: No surgeries. SOCIAL HISTORY: Heavy history of alcohol use. Up to 30 beers a day. MEDICATIONS: Reviewed as listed in the MRAD including antibiotics. REVIEW OF SYSTEMS: Unable to obtain from the patient. PHYSICAL EXAMINATION: VITAL SIGNS: Reviewed. Afebrile, pulse ox 94% on Venturi mask. Blood pressure 117 systolic. HEENT: Sclerae are icteric. NECK: Supple. LUNGS: With anterior rhonchi. CARDIOVASCULAR: Regular rate. ABDOMEN: Soft. EXTREMITIES: With erythema, cold. LABORATORY DATA: Reviewed. INR 2.6. Urine drug screen positive for alcohol. INR 2.6. Chemistries with a BUN of 35 and a creatinine of 1.1 on admission and now 60 and 1.3. Lactic acid was 14.9, now down to 11.3. AST 309. ALT 154. Bilirubin is 12.5. TSH is 0.052. White cell count is 16.0, hemoglobin 7.5 and platelets are 121. IMPRESSION: 1. Acute hypoxic respiratory failure secondary to multifactorial etiologies including acute hepatic encephalopathy, sepsis, suspected acute lung injury, risk for aspiration, and acute on chronic hepatic failure. 2. Acute hepatic encephalopathy. 3. Acute on chronic liver failure with progressively increasing bilirubin and transaminases. GI is following. 4. Marked lactic acidosis. Likely sepsis, but could be related to type B lactic acidosis from liver failure. 5. Coagulopathy secondary to liver failure. 6. Marked metabolic acidosis on ABGs related to lactic acidosis and hepatic failure. RECOMMENDATIONS: 1. Discussed with Dr. Cervantes and RN. We will continue with present Venturi mask. 2. Follow ABGs and make necessary adjustments. 3. Correction of metabolic acidosis. We will try bicarbonate. 4. Continue broad-spectrum antibiotics. 5. Follow GI recommendation. 6. The patient is currently on octreotide drip. 7. DuoNeb. 8. Alcohol withdrawal precautions. 9. Prognosis is extremely grim. There is also concern for hepatic or colonic malignancy. Would recommend DNR status. We will follow along with you. Critical care time 37 minutes. DIVYA VASQUEZ MD DR: MARIA/stacey JOB#: [id number] / [id number]
--- NOTE | 2019-01-07 13:48 | PDOC2 ---
LUIGI ELI COMPUTER ENGINEERING TECHNOLOGIST 01/07/19 1348: CARDIAC CONSULT DATE OF CONSULT Date of Consult DATE: 01/07/19 TIME: 13:42 REASON FOR CONSULT Reason for Consult: hypotension Cardiomyopathy REFERRING PHYSICIAN Referring Physician: Dr. Adkins SOURCE Source: Chart review, Patient HISTORY OF PRESENT ILLNESS HISTORY OF PRESENT ILLNESS This is a 43 yo male who presented secondary to abnormal labs. Has a history of chronic alcohol abuse. Presented to Primary Care office with complaints of frequenting bruising and dizziness. Routine labs were abnormal and patient was recommended to come to the ED for further evaluation and treatment. Initial labs notable for thrombocytopenia and coagulopathy. HPI obtain from chart review at patient is somnolent and no family at beside. PAST MEDICAL HISTORY GI: GERD Psych: Anxiety, Addictions (ETOH) PAST SURGICAL HISTORY Past Surgical History: No pertinent history FAMILY HISTORY Family History: Family History Unknown SOCIAL HISTORY ALCOHOL: heavy Drugs: None CURRENT MEDICATIONS CURRENT MEDICATIONS Current Medications Medications (Trade) Dose Ordered Sig/Amrik Route PRN Reason Start Time Stop Time Status Last Admin Dose Admin Metronidazole 100 ml @ 100 mls/hr Q8HRS IV 01/06/19 14:00 01/07/19 13:04 Albumin Human 100 ml @ 100 mls/hr 1X ONCE IV 01/06/19 20:15 01/06/19 21:14 DC 01/06/19 21:30 Phytonadione (Vitamin K Ampule) 10 mg 1X ONCE SQ 01/07/19 11:45 01/07/19 11:46 DC 01/07/19 13:04 ALLERGIES ALLERGIES: Coded Allergies: No Known Drug Allergies (Unverified , 01/04/19) PHYSICAL EXAM General: Other (somnolent ) HEENT: Atraumatic, Mucous membr. moist/pink Lungs: Other (coarse throughout ) Heart: Regular rate (SR/ST), Normal S1, Normal S2, Other (distant heart tones ) Extremities: Other (diffuse bilateral LE ecchymosis, 1+ bilateral LE edema ) Skin: Other (Bruising and jaundice) Neuro: Other (unable to assess) Psych/Mental Status: Other (somnolent ) MUSCULOSKELETAL: No deformity VITALS/I&O VITALS/I&O: Vital Signs Date Time Temp Pulse Resp B/P (MAP) Pulse Ox O2 Delivery O2 Flow Rate FiO2 01/07/19 13:16 98.2 105 20 107/72 98.2 7/15/19 13:00 94 Venturi Mask 01/07/19 07:00 6.0 I & O 01/06/19 01/06/19 01/07/19 14:59 22:59 06:59 Intake Total 1441 ml 2433 ml 63.36 ml Output Total 800 ml 755 ml 850 ml Balance 641 ml 1678 ml -786.64 ml LABS Lab: Laboratory Tests Test 01/06/19 17:15 01/07/19 04:20 01/07/19 09:03 White Blood Count 15.2 x10^3/uL (4.0-11.0) H 16.0 x10^3/uL (4.0-11.0) H Red Blood Count 2.40 x10^6/uL (4.30-5.70) L 2.15 x10^6/uL (4.30-5.70) L Hemoglobin 8.3 g/dL (13.0-17.5) L 7.5 g/dL (13.0-17.5) L Hematocrit 24.5 % (39.0-53.0) L 21.8 % (39.0-53.0) L Mean Corpuscular Volume 102 fL (79-100) #H 101 fL (79-100) H Mean Corpuscular Hemoglobin 35 pg (25-35) 35 pg (25-35) Mean Corpuscular Hemoglobin Concent 34 g/dL (31-37) 34 g/dL (31-37) Red Cell Distribution Width 21.0 % (11.5-14.5) H 21.8 % (11.5-14.5) H Platelet Count 110 x10^3/uL (140-400) L 121 x10^3/uL (140-400) L Prothrombin Time 26.4 SEC (11.7-14.0) H 27.6 SEC (11.7-14.0) H Prothrombin Time INR 2.5 (0.8-1.1) H 2.6 (0.8-1.1) H Lactic Acid Level 11.3 mmol/L (0.4-2.0) *H Neutrophils (%) (Auto) 80 % (31-73) H Lymphocytes (%) (Auto) 11 % (24-48) L Monocytes (%) (Auto) 9 % (0-9) Eosinophils (%) (Auto) 0 % (0-3) Basophils (%) (Auto) 0 % (0-3) Neutrophils # (Auto) 12.8 x10^3/uL (1.8-7.7) H Lymphocytes # (Auto) 1.8 x10^3/uL (1.0-4.8) Monocytes # (Auto) 1.4 x10^3/uL (0.0-1.1) H Eosinophils # (Auto) 0.0 x10^3/uL (0.0-0.7) Basophils # (Auto) 0.0 x10^3/uL (0.0-0.2) Segmented Neutrophils % 80 % (35-66) H Band Neutrophils % 9 % (0-9) Lymphocytes % 9 % (24-48) L Monocytes % 2 % (0-10) Nucleated Red Blood Cells 1 Platelet Estimate Decreased (ADEQUATE) Anisocytosis Mod Sodium Level 148 mmol/L (136-145) H Potassium Level 3.7 mmol/L (3.5-5.1) Chloride Level 113 mmol/L (98-107) H Carbon Dioxide Level 21 mmol/L (21-32) Anion Gap 14 (6-14) Blood Urea Nitrogen 60 mg/dL (8-26) #H Creatinine 1.3 mg/dL (0.7-1.3) Estimated GFR (Cockcroft-Gault) 60.0 BUN/Creatinine Ratio 46 (6-20) H Glucose Level 171 mg/dL (70-99) H Calcium Level 7.8 mg/dL (8.5-10.1) L Total Bilirubin 12.5 mg/dL (0.2-1.0) H Aspartate Amino Transferase (AST) 309 U/L (15-37) H Alanine Aminotransferase (ALT) 154 U/L (16-63) H Alkaline Phosphatase 94 U/L (46-116) Total Protein 5.2 g/dL (6.4-8.2) L Albumin 2.2 g/dL (3.4-5.0) L Albumin/Globulin Ratio 0.7 (1.0-1.7) L Thyroid Stimulating Hormone (TSH) 0.052 uIU/mL (0.358-3.74) L Laboratory Tests 01/06/19 17:15 7/15/19 04:20 Laboratory Tests 01/07/19 04:20 ASSESSMENT/PLAN ASSESSMENT/PLAN 1. Thrombocytopenia 2. Coagulopathy with diffuse ecchymosis. Secondary to liver disease. S/p 4 units FFP 3. Anemia, GIB; s/p 2 units PRBCs 4. Metabolic/toxic/hepatic encephalopathy 5. Transaminitis 6. Alcoholic cirrhosis 7. Leukocytosis, lactic acidosis, fevers, ? sepsis. BC pending 8. Acute respiratory failure; Echo showed preserved LV systolic function. 9. Hypotension; maintaining low low-normotensive 10. Alcoholism Recommendations LV systolic function preserved Transfuse as warranted Pressor support as warranted Follow GI, hematology, pulm recs Supportive care from a CV standpoint No further CV testing warranted at this time. LUISANA PORTILLO MD 01/07/19 1814: CARDIAC CONSULT ASSESSMENT/PLAN ASSESSMENT/PLAN Patient seen and examined. Agree with STAND GRINDER's assessment and plan. 2D echo showed normal LV systolic function Tele did not show any significant arrhythmias Continue current management of alcoholic cirrhosis and hepatic encephalopathy per GI team Prognosis guarded We will follow as needed Thank you for your consultation LUIGI ELI APRN Jan 07, 2019 13:48 LUISANA PORTILLO MD Jan 07, 2019 18:14
--- NOTE | 2019-01-07 14:30 | PDOC2 ---
NEUROLOGY CONSULT Date of Admission Date of Admission DATE: 01/07/19 TIME: 14:07 Reason for Consult Reason for Consult: IMPRESSION: Lethargy. Metabolic encephalopathy. Toxic encephalopathy. Respiratory failure. Alcohol intoxication. Lactic acidosis. Hepatic Injury. Elevated ammonia level. Thrombocytopenia. Coagulopathy, elevated PT/INR related to hepatic disease likely. Cirrhosis. Colitis. HTN. Substances abuse, alcohol. RECOMMENDATIONS/PLAN: HCT w/o contrast. EEG. Vit B1. Treat medical and hematologic diseases. ID on team. HISTORY OF THE PRESENT ILLNESS: This is a 43-year-old male with history of alcohol abuse went unresponsive status. According to his family, he has a history of drinking alcohol heavily in the last 22 years, averaging 30-60 beers a day. Over the last year, he has been depressed, shaky and not well-coordinated with falls. He could not work regularly. He tried to quit drinking a few times but but failed maintain abstinence. He had nosebleeds, blood in urine and skin and soft tissue bruises. He has been unresponsiveness since here. His daughter says he has lost about 50 pounds in a span of 3 month period last year. PAST MEDICAL HISTORY: Depression, hypertension, GERD, panic attacks. PAST SURGICAL HISTORY: No significant past surgical history. SOCIAL HISTORY: The patient is and lives at home. Used to work at a [employer] shop and [employer]. He migrated to the [place] from [place] about 19 years ago. He has 2 daughters. Heavy alcohol as mentioned above. FAMILY HISTORY: Noncontributory. ALLERGIES: No known drug allergies. REVIEW OF SYSTEMS: Refer to PMH and PSH. Otherwise, all other review of systems limited as the patient is unresponsiveness. PHYSICAL EXAMINATION: General appearance is in subacute distress. HEENT: Normocephalic and nontraumatic. Eyes, nose, ears, and throat are unremarkable. Neck is supple. No lymphadenopathy. No crepitus. Cardiovascular: S1, S2, regular rate and rhythm. Pulmonary: On 02.. Abdomen: Bowel sounds are positive. Extremities: Bruises in extremities. No restriction of range of motion NEUROLOGICAL EXAMINATION: Unresponsiveness. Not oriented to time, place and person. PERRL. EOMI not elicited. CN: no focal findings. Muscle tone: Decreased. Muscle strength: No movements to stimuli. DTR: 1- Plantar reflex: No response bilaterally Gait: not able to walk. Sensory exam: no response.. Not able to access cerebellar signs. F-T-N test not performed. Current Medications Current Medications Current Medications Iohexol (Omnipaque 240 Mg/ml) 30 ml 1X ONCE PO Last administered on 01/04/19at 15:15; Start 01/04/19 at 15:15; Stop 01/04/19 at 15:17; Status DC Iohexol (Omnipaque 300 Mg/ml) 75 ml 1X ONCE IV Last administered on 01/04/19at 16:20; Start 01/04/19 at 15:15; Stop 01/04/19 at 15:17; Status DC Info (CONTRAST GIVEN -- Rx MONITORING) 1 each PRN DAILY PRN MC SEE COMMENTS; Start 01/04/19 at 15:30; Stop 01/06/19 at 15:29; Status DC Multivitamins 10 ml/Thiamine HCl 100 mg/Folic Acid 1 mg/Sodium Chloride 1,011.2 ml @ 100 mls/ hr DAILY IV Last administered on 01/07/19at 08:03; Start 01/04/19 at 18:00; Stop 01/08/19 at 19:07 Chlordiazepoxide (Librium) 50 mg PRN Q1HR PRN PO For CIWA 8-14 Last administered on 01/04/19at 18:17; Start 01/04/19 at 17:45 Chlordiazepoxide (Librium) 100 mg PRN Q1HR PRN PO For CIWA 15 or greater Last administered on 01/05/19at 06:27; Start 01/04/19 at 17:45 Lorazepam (Ativan) 4 mg PRN Q1HR PRN PO For CIWA 8-14 Last administered on 01/04/19at 18:17; Start 01/04/19 at 17:45 Lorazepam (Ativan) 8 mg PRN Q1HR PRN PO For CIWA 15 or greater; Start 01/04/19 at 17:45 Haloperidol Lactate (Haldol Inj) 5 mg PRN Q4HRS PRN IVP Hallucinatns,Confusn,Delirium; Start 01/04/19 at 17:45 Diphenhydramine HCl (Benadryl) 25 mg PRN Q15MIN PRN IVP EPS symptoms 2'Haldol admin; Start 01/04/19 at 17:45 Clonidine HCl (Catapres) 0.1 mg PRN Q1HR PRN PO SBP > 180 or DBP > 100, MRX3; Start 01/04/19 at 17:45 Lorazepam (Ativan Inj) 2 mg PRN Q1HR PRN IV For CIWA 8-14 Last administered on 01/04/19at 21:08; Start 01/04/19 at 19:15 Lorazepam (Ativan Inj) 4 mg PRN Q1HR PRN IV For CIWA 15 or greater Last administered on 01/05/19at 06:28; Start 01/04/19 at 19:15 Lorazepam (Ativan Inj) 2 mg PRN Q15MIN PRN IV SEE COMMENTS; Start 01/04/19 at 19:15; Status UNV Lorazepam (Ativan Inj) 4 mg PRN Q15MIN PRN IV SEE COMMENTS; Start 01/04/19 at 19:15; Status UNV Ondansetron HCl (Zofran) 4 mg PRN Q6HRS PRN IV NAUSEA/VOMITING Last administered on 01/04/19at 19:34; Start 01/04/19 at 19:30 Pantoprazole Sodium (PROTONIX VIAL for IV PUSH) 40 mg DAILYAC IVP Last administered on 01/06/19at 10:36; Start 01/06/19 at 10:00; Stop 01/06/19 at 12:17; Status DC Phytonadione (Vitamin K Ampule) 10 mg 1X ONCE SQ Last administered on 01/06/19at 10:36; Start 01/06/19 at 10:15; Stop 01/06/19 at 10:16; Status DC Piperacillin Sod/ Tazobactam Sod (Zosyn Per Pharmacy) 1 each PRN DAILY PRN MC SEE COMMENTS; Start 01/06/19 at 10:30 Piperacillin Sod/ Tazobactam Sod 3.375 gm/Sodium Chloride 50 ml @ 100 mls/hr Q6HRS IV Last administered on 01/07/19at 11:13; Start 01/06/19 at 11:00 Lactulose (Lactulose) 30 gm Q6HRS NG Last administered on 01/07/19at 11:14; Start 01/06/19 at 12:00 Metronidazole 100 ml @ 100 mls/hr Q8HRS IV Last administered on 01/07/19at 13:04; Start 01/06/19 at 14:00 Pantoprazole Sodium 80 mg/ Sodium Chloride 100 ml @ 10 mls/hr Q10H IV Last ad ministered on 01/07/19at 10:12; Start 01/06/19 at 12:30 Octreotide Acetate 500 mcg/ Sodium Chloride 101 ml @ 0 mls/hr CONT PRN IV SEE I/O RECORD Last administered on 01/07/19at 10:12; Start 01/06/19 at 12:15 Norepinephrine Bitartrate 250 ml @ 14.235 mls/ hr CONT PRN IV SEE I/O RECORD; Start 01/06/19 at 20:15 Albumin Human 100 ml @ 100 mls/hr 1X ONCE IV Last administered on 01/06/19at 21:30; Start 01/06/19 at 20:15; Stop 01/06/19 at 21:14; Status DC Phytonadione (Vitamin K Ampule) 10 mg 1X ONCE SQ Last administered on 01/07/19at 13:04; Start 01/07/19 at 11:45; Stop 01/07/19 at 11:46; Status DC Albuterol/ Ipratropium (Duoneb) 3 ml RTQID NEB ; Start 01/07/19 at 16:00 Active Scripts Active Reported Omeprazole 40 Mg Capsule. 1 Cap PO DAILY Allergies Allergies: Allergies Coded Allergies Type Severity Reaction Last Updated Verified No Known Drug Allergies 01/04/19 No ROS Review of System The patient denies any associated fevers, chills, headache, ear pain, rhinorrhea, sore throat, stiff neck, productive cough, chest pain, shortness of breath, back or flank pain, abdominal pain, nausea, vomiting, diarrhea, constipation, dysuria, rash, numbness, weakness, tingling, incontinence, difficulty ambulating, or diaphoresis. Physical Exam Physical Exam General: Well developed, well nourished, no acute distress, well appearing HEENT: Pupils equally round and reactive to light, EOMI, no discharge, normal conjunctiva Neck: Supple, no nuchal rigidity, no JVD, trachea midline, no tenderness Cardiac: RRR, no murmurs, no gallops, no rubs Chest/Lungs: CTAB, no wheeze, no rhonchi, no crackles Abdomen: soft, non-distended, no guarding, no peritoneal signs, non-tender Back: No tenderness Extremities: no edema, pulses intact, non-tender,capillary refill <3 sec bilateral upper and lower extremities, Neuro: Alert and oriented x 4, no focal deficits, normal speech Vitals Vitals: Vital Signs Date Time Temp Pulse Resp B/P (MAP) Pulse Ox O2 Delivery O2 Flow Rate FiO2 01/07/19 13:56 98.2 105 20 110/72 (85) 91 Venturi Mask 98.2 01/07/19 07:00 6.0 Labs Labs Laboratory Tests Test 01/06/19 05:00 01/06/19 08:05 01/06/19 09:30 01/06/19 09:50 Sodium Level 143 mmol/L (136-145) Potassium Level 4.3 mmol/L (3.5-5.1) Chloride Level 108 mmol/L (98-107) Carbon Dioxide Level 15 mmol/L (21-32) Anion Gap 20 (6-14) Blood Urea Nitrogen 35 mg/dL (8-26) Creatinine 1.1 mg/dL (0.7-1.3) Estimated GFR (Cockcroft-Gault) 72.7 BUN/Creatinine Ratio 32 (6-20) Glucose Level 114 mg/dL (70-99) Calcium Level 7.5 mg/dL (8.5-10.1) Total Bilirubin 10.3 mg/dL (0.2-1.0) Aspartate Amino Transf (AST/SGOT) 156 U/L (15-37) Alanine Aminotransferase (ALT/SGPT) 81 U/L (16-63) Alkaline Phosphatase 107 U/L (46-116) Total Protein 5.1 g/dL (6.4-8.2) Albumin 1.7 g/dL (3.4-5.0) Albumin/Globulin Ratio 0.5 (1.0-1.7) White Blood Count 11.6 x10^3/uL (4.0-11.0) Red Blood Count 1.78 x10^6/uL (4.30-5.70) Hemoglobin 6.6 g/dL (13.0-17.5) Hematocrit 19.9 % (39.0-53.0) Mean Corpuscular Volume 111 fL (79-100) Mean Corpuscular Hemoglobin 37 pg (25-35) Mean Corpuscular Hemoglobin Concent 33 g/dL (31-37) Red Cell Distribution Width 16.9 % (11.5-14.5) Platelet Count 105 x10^3/uL (140-400) Neutrophils (%) (Auto) 87 % (31-73) Lymphocytes (%) (Auto) 8 % (24-48) Monocytes (%) (Auto) 5 % (0-9) Eosinophils (%) (Auto) 0 % (0-3) Basophils (%) (Auto) 0 % (0-3) Neutrophils # (Auto) 10.1 x10^3/uL (1.8-7.7) Lymphocytes # (Auto) 0.9 x10^3/uL (1.0-4.8) Monocytes # (Auto) 0.6 x10^3/uL (0.0-1.1) Eosinophils # (Auto) 0.0 x10^3/uL (0.0-0.7) Basophils # (Auto) 0.0 x10^3/uL (0.0-0.2) Prothrombin Time 31.3 SEC (11.7-14.0) Prothromb Time International Ratio 3.0 (0.8-1.1) Activated Partial Thromboplast Time 38 SEC (24-38) Fibrinogen 170 mg/dL (200-440) D-Dimer (Liasha) 3.88 ug/mlFEU (0.00-0.50) O2 Saturation 94 % (92-99) Arterial Blood pH 7.47 (7.35-7.45) Arterial Blood pCO2 at Patient Temp 19 mmHg (35-46) Arterial Blood pO2 at Patient Temp 76 mmHg (75-108) Arterial Blood HCO3 14 mmol/L (21-28) Arterial Blood Base Excess -9 mmol/L (-3-3) FiO2 21 Nasal Screen MRSA (PCR) Negative (Negative) Test 01/06/19 10:10 01/06/19 17:15 01/07/19 04:20 01/07/19 09:03 Lactic Acid Level 14.9 mmol/L (0.4-2.0) 11.3 mmol/L (0.4-2.0) Ammonia 209 mcmol/L (11-34) White Blood Count 15.2 x10^3/uL (4.0-11.0) 16.0 x10^3/uL (4.0-11.0) Red Blood Count 2.40 x10^6/uL (4.30-5.70) 2.15 x10^6/uL (4.30-5.70) Hemoglobin 8.3 g/dL (13.0-17.5) 7.5 g/dL (13.0-17.5) Hematocrit 24.5 % (39.0-53.0) 21.8 % (39.0-53.0) Mean Corpuscular Volume 102 fL (79-100) 101 fL (79-100) Mean Corpuscular Hemoglobin 35 pg (25-35) 35 pg (25-35) Mean Corpuscular Hemoglobin Concent 34 g/dL (31-37) 34 g/dL (31-37) Red Cell Distribution Width 21.0 % (11.5-14.5) 21.8 % (11.5-14.5) Platelet Count 110 x10^3/uL (140-400) 121 x10^3/uL (140-400) Prothrombin Time 26.4 SEC (11.7-14.0) 27.6 SEC (11.7-14.0) Prothromb Time International Ratio 2.5 (0.8-1.1) 2.6 (0.8-1.1) Neutrophils (%) (Auto) 80 % (31-73) Lymphocytes (%) (Auto) 11 % (24-48) Monocytes (%) (Auto) 9 % (0-9) Eosinophils (%) (Auto) 0 % (0-3) Basophils (%) (Auto) 0 % (0-3) Neutrophils # (Auto) 12.8 x10^3/uL (1.8-7.7) Lymphocytes # (Auto) 1.8 x10^3/uL (1.0-4.8) Monocytes # (Auto) 1.4 x10^3/uL (0.0-1.1) Eosinophils # (Auto) 0.0 x10^3/uL (0.0-0.7) Basophils # (Auto) 0.0 x10^3/uL (0.0-0.2) Segmented Neutrophils % 80 % (35-66) Band Neutrophils % 9 % (0-9) Lymphocytes % 9 % (24-48) Monocytes % 2 % (0-10) Nucleated Red Blood Cells 1 Platelet Estimate Decreased (ADEQUATE) Anisocytosis Mod Sodium Level 148 mmol/L (136-145) Potassium Level 3.7 mmol/L (3.5-5.1) Chloride Level 113 mmol/L (98-107) Carbon Dioxide Level 21 mmol/L (21-32) Anion Gap 14 (6-14) Blood Urea Nitrogen 60 mg/dL (8-26) Creatinine 1.3 mg/dL (0.7-1.3) Estimated GFR (Cockcroft-Gault) 60.0 BUN/Creatinine Ratio 46 (6-20) Glucose Level 171 mg/dL (70-99) Calcium Level 7.8 mg/dL (8.5-10.1) Total Bilirubin 12.5 mg/dL (0.2-1.0) Aspartate Amino Transf (AST/SGOT) 309 U/L (15-37) Alanine Aminotransferase (ALT/SGPT) 154 U/L (16-63) Alkaline Phosphatase 94 U/L (46-116) Total Protein 5.2 g/dL (6.4-8.2) Albumin 2.2 g/dL (3.4-5.0) Albumin/Globulin Ratio 0.7 (1.0-1.7) Thyroid Stimulating Hormone (TSH) 0.052 uIU/mL (0.358-3.74) Laboratory Tests Test 01/06/19 17:15 01/07/19 04:20 01/07/19 09:03 White Blood Count 15.2 x10^3/uL (4.0-11.0) 16.0 x10^3/uL (4.0-11.0) Red Blood Count 2.40 x10^6/uL (4.30-5.70) 2.15 x10^6/uL (4.30-5.70) Hemoglobin 8.3 g/dL (13.0-17.5) 7.5 g/dL (13.0-17.5) Hematocrit 24.5 % (39.0-53.0) 21.8 % (39.0-53.0) Mean Corpuscular Volume 102 fL (79-100) 101 fL (79-100) Mean Corpuscular Hemoglobin 35 pg (25-35) 35 pg (25-35) Mean Corpuscular Hemoglobin Concent 34 g/dL (31-37) 34 g/dL (31-37) Red Cell Distribution Width 21.0 % (11.5-14.5) 21.8 % (11.5-14.5) Platelet Count 110 x10^3/uL (140-400) 121 x10^3/uL (140-400) Prothrombin Time 26.4 SEC (11.7-14.0) 27.6 SEC (11.7-14.0) Prothromb Time International Ratio 2.5 (0.8-1.1) 2.6 (0.8-1.1) Lactic Acid Level 11.3 mmol/L (0.4-2.0) Neutrophils (%) (Auto) 80 % (31-73) Lymphocytes (%) (Auto) 11 % (24-48) Monocytes (%) (Auto) 9 % (0-9) Eosinophils (%) (Auto) 0 % (0-3) Basophils (%) (Auto) 0 % (0-3) Neutrophils # (Auto) 12.8 x10^3/uL (1.8-7.7) Lymphocytes # (Auto) 1.8 x10^3/uL (1.0-4.8) Monocytes # (Auto) 1.4 x10^3/uL (0.0-1.1) Eosinophils # (Auto) 0.0 x10^3/uL (0.0-0.7) Basophils # (Auto) 0.0 x10^3/uL (0.0-0.2) Segmented Neutrophils % 80 % (35-66) Band Neutrophils % 9 % (0-9) Lymphocytes % 9 % (24-48) Monocytes % 2 % (0-10) Nucleated Red Blood Cells 1 Platelet Estimate Decreased (ADEQUATE) Anisocytosis Mod Sodium Level 148 mmol/L (136-145) Potassium Level 3.7 mmol/L (3.5-5.1) Chloride Level 113 mmol/L (98-107) Carbon Dioxide Level 21 mmol/L (21-32) Anion Gap 14 (6-14) Blood Urea Nitrogen 60 mg/dL (8-26) Creatinine 1.3 mg/dL (0.7-1.3) Estimated GFR (Cockcroft-Gault) 60.0 BUN/Creatinine Ratio 46 (6-20) Glucose Level 171 mg/dL (70-99) Calcium Level 7.8 mg/dL (8.5-10.1) Total Bilirubin 12.5 mg/dL (0.2-1.0) Aspartate Amino Transf (AST/SGOT) 309 U/L (15-37) Alanine Aminotransferase (ALT/SGPT) 154 U/L (16-63) Alkaline Phosphatase 94 U/L (46-116) Total Protein 5.2 g/dL (6.4-8.2) Albumin 2.2 g/dL (3.4-5.0) Albumin/Globulin Ratio 0.7 (1.0-1.7) Thyroid Stimulating Hormone (TSH) 0.052 uIU/mL (0.358-3.74) MAGY BLUE MD Jan 07, 2019 14:30
--- NOTE | 2019-01-07 15:34 | CARD ---
MR#: [id number] Date of Study: 01/07/2019 Ordering Physician: DANG OWUSU, Referring Physician: SACHIN TRAN Tech: Elsa Harley RDCS APPROVED REPORT EXAM: Two-dimensional and M-mode echocardiogram with Doppler and color Doppler. Other Information Quality : Good INDICATION Cardiomyopathy 2D DIMENSIONS RVDd2.5 (2.9-3.5cm)Left Atrium(2D)2.9 (1.6-4.0cm) IVSd1.1 (0.7-1.1cm)Aortic Root(2D)2.5 (2.0-3.7cm) LVDd3.9 (3.9-5.9cm)LVOT Diameter2.0 (1.8-2.4cm) PWd0.7 (0.7-1.1cm)LVDs2.6 (2.5-4.0cm) FS (%) 32.3 %SV40.4 ml Aortic Valve AoV Peak Casimiro.209.4cm/sAoV VTI31.5cm AO Peak GR.17.5mmHgLVOT VTI 25.28cm AO Mean GR.10mmHgAVA (VTI)2.60cm2 Mitral Valve MV E Ohhirbsk53.4cm/sMV DECEL [id number] MV A Okbooesa372.7cm/sE/A Ratio0.7 TDI Lateral E' P. V13.90cm/sMedial E' P. V9.53cm/s E/Lateral E'6.1E/Medial E'8.9 Tricuspid Valve TR P. [id number]/sRAP [id number] TR Peak Gr.15rdBgZPTC98ieZm Pulmonary Vein S1 Fdebzakr73.2cm/sS2 Rbrllsuh47.52cm/s D2 Pxqtcgat04.5cm/s LEFT VENTRICLE The left ventricle is normal size. There is normal left ventricular wall thickness. The left ventricu lar systolic function is normal and the ejection fraction is within normal range. The Ejection Fracti on is 60-65%. There is normal LV segmental wall motion. Transmitral Doppler flow pattern is Grade I-a bnormal relaxation pattern. RIGHT VENTRICLE The right ventricle is normal size. The right ventricular systolic function is normal. ATRIA The left atrium size is normal. The right atrium size is normal. The interatrial septum is intact wit h no evidence for an atrial septal defect or patent foramen ovale as noted on 2-D or Doppler imaging. AORTIC VALVE The aortic valve is calcified but opens well. Doppler and Color Flow revealed no significant aortic r egurgitation. There is no significant aortic valvular stenosis. MITRAL VALVE The mitral valve is normal in structure and function. There is no evidence of mitral valve prolapse. There is no mitral valve stenosis. Doppler and Color-flow revealed mild mitral regurgitation. TRICUSPID VALVE The tricuspid valve is normal in structure and function. Doppler and Color Flow revealed mild tricusp id regurgitation. The PA pressure was estimated at 34 mmHg. There is no tricuspid valve stenosis. PULMONIC VALVE The pulmonic valve is not well visualized. Doppler and Color Flow revealed no pulmonic valvular regur gitation. There is no pulmonic valvular stenosis. GREAT VESSELS The aortic root is normal in size. The ascending aorta is normal in size. The IVC is normal in size a nd collapses >50% with inspiration. PERICARDIAL EFFUSION There is no evidence of significant pericardial effusion. Critical Notification Critical Value: No <Conclusion> The left ventricle is normal size. The left ventricular systolic function is normal and the ejection fraction is within normal range. The Ejection Fraction is 60-65%. There is no significant aortic valvular stenosis. Doppler and Color Flow revealed no significant aortic regurgitation. Doppler and Color-flow revealed mild mitral regurgitation. Doppler and Color Flow revealed mild tricuspid regurgitation. The PA pressure was estimated at 34 mmHg. Signed by : Danny Joaquin MD Electronically Approved : 01/07/2019 15:34:14
--- NOTE | 2019-01-07 15:57 | RAD ---
CT head without contrast History: Encephalopathy Technique: Noncontrast CT of the head. Exposure: One or more of the following individualized dose reduction techniques were utilized for this examination: 1. Automated exposure control 2. Adjustment of the mA and/or kV according to patient size 3. Use of iterative reconstruction technique. Comparison: None. Findings: No intracranial hemorrhage. No mass effect. No hydrocephalus. Extra-axial spaces are unremarkable. Imaged orbits are unremarkable. Imaged paranasal sinuses and mastoid air cells are clear. No acute calvarial fracture. Impression: 1. No acute intracranial abnormality. Electronically signed by: Jitendra Rankin MD (01/07/2019 3:54 PM) [id number]
[2019-01-07] MEDS: IPRATRPIUM/ALBUTEROL 0.5/2.5MG 3 ML NEBU. NEB SCH ×2 (16:20→20:01)
--- NOTE | 2019-01-07 17:15 | NUR ---
ct of head, echocardiogram, and abdominal sono completed. lactulose per og tube q6 hours. pt given 2 units of ffp and vit k 10 mg sq. lab to be drawn at 1900. pt does follow simple commands such as nodding head yes and no, when stimulated with shaking and verbal requests. and family at bedside.
[2019-01-07 19:10] LABS: PROTHROMBIN TIME PATIENT 23.9 SEC (11.7-14.0)
[2019-01-07 19:13] LABS: AFPT MARKER 4.1 ng/mL (0.0-8.3)
[2019-01-08] VITALS (24 sets, daily range): BP systolic 96–170; BP diastolic 59–97
[2019-01-08] MEDS: LACTULOSE 20 GM/30 ML SOLUTION. NG SCH ×4 (00:46→17:11)
[2019-01-08] MEDS: PIPERACILLIN/TAZOBACTAM 3.375 GM in IV NORMAL SALINE 50ML 50 ML IV SCH ×5 (00:46→23:47)
[2019-01-08 04:34] LABS: BASO # 0.1 x10^3/uL (0.0-0.2); BASO % 1 % (0-3); EOS % 0 % (0-3); HEMOGLOBIN 8.7 g/dL (13.0-17.5); LYMPH # 0.8 x10^3/uL (1.0-4.8); LYMPH % 9 % (24-48); MEAN CORPUSCULAR HEMOGLOBIN 36 pg (25-35); MEAN CORPUSCULAR HGB CONC 35 g/dL (31-37); MEAN CORPUSCULAR VOLUME 104 fL (79-100); MONO # 0.7 x10^3/uL (0.0-1.1); MONO % 8 % (0-9); NEUT # 7.1 x10^3/uL (1.8-7.7); NEUT % 82 % (31-73); PLATELET COUNT 113 x10^3/uL (140-400); RED BLOOD COUNT 2.42 x10^6/uL (4.30-5.70); RED CELL DISTRIBUTION WIDTH 23.1 % (11.5-14.5); WHITE BLOOD COUNT 8.7 x10^3/uL (4.0-11.0)
[2019-01-08 04:43] LABS: PROTHROMBIN TIME PATIENT 23.8 SEC (11.7-14.0)
[2019-01-08 04:53] LABS: ALBUMIN 2.5 g/dL (3.4-5.0); ALBUMIN/GLOBULIN RATIO 0.7 (1.0-1.7); CALCIUM 8.1 mg/dL (8.5-10.1); CREATININE 0.9 mg/dL (0.7-1.3); GFR 91.7; TOTAL BILIRUBIN 15.2 mg/dL (0.2-1.0)
[2019-01-08] MEDS: PANTOPRAZOLE SODIUM IV DRIP 80 MG in IV NORMAL SALINE 100ML 100 ML IV SCH ×2 (06:08→17:11)
[2019-01-08] MEDS: OCTREOTIDE 500 MCG in IV NORMAL SALINE 100ML 100 ML IV PRN (06:08)
[2019-01-08] MEDS: IV 1/2 NORMAL SALINE 1,000 ML IV SCH ×2 (06:09→23:47)
--- NOTE | 2019-01-08 07:49 | PDOC ---
Infectious Disease Note Subjective Subjective On bipap Not responsive ROS ROS unable to obtain Vital Sign Vital Signs Vital Signs Date Time Temp Pulse Resp B/P (MAP) Pulse Ox O2 Delivery O2 Flow Rate FiO2 01/08/19 07:18 120 170/97 01/08/19 06:00 23 100 BiPAP/CPAP 01/08/19 04:00 15.0 01/08/19 04:00 99.0 99.0 Physical Exam PHYSICAL EXAM GENERAL: The patient is propped up in bed, jaundiced on Bipap HEENT: Pupils equally round and reactive. Icterus. NG tube in place NECK: Supple. LUNGS: decreased in bases HEART: S1 and S2 regular ABDOMEN: Mildly distended, soft, no grimace or guarding to palpation. Bowel sounds present. GENITOURINARY: Indwelling Galdamez in place. Urine is dark and concentrated. EXTREMITIES: No gross edema or cyanosis IVS: Peripheral IV looks okay. SKIN: Warm to touch. He has multiple ecchymoses, especially lower extremities. NEUROLOGIC: follows some commands. Labs Lab Laboratory Tests Test 01/07/19 09:03 01/07/19 18:55 01/08/19 03:55 Prothrombin Time 27.6 SEC (11.7-14.0) 23.9 SEC (11.7-14.0) 23.8 SEC (11.7-14.0) Prothromb Time International Ratio 2.6 (0.8-1.1) 2.2 (0.8-1.1) 2.2 (0.8-1.1) Thyroid Stimulating Hormone (TSH) 0.052 uIU/mL (0.358-3.74) Ammonia 28 mcmol/L (11-34) 20 mcmol/L (11-34) White Blood Count 8.7 x10^3/uL (4.0-11.0) Red Blood Count 2.42 x10^6/uL (4.30-5.70) Hemoglobin 8.7 g/dL (13.0-17.5) Hematocrit 25.0 % (39.0-53.0) Mean Corpuscular Volume 104 fL (79-100) Mean Corpuscular Hemoglobin 36 pg (25-35) Mean Corpuscular Hemoglobin Concent 35 g/dL (31-37) Red Cell Distribution Width 23.1 % (11.5-14.5) Platelet Count 113 x10^3/uL (140-400) Neutrophils (%) (Auto) 82 % (31-73) Lymphocytes (%) (Auto) 9 % (24-48) Monocytes (%) (Auto) 8 % (0-9) Eosinophils (%) (Auto) 0 % (0-3) Basophils (%) (Auto) 1 % (0-3) Neutrophils # (Auto) 7.1 x10^3/uL (1.8-7.7) Lymphocytes # (Auto) 0.8 x10^3/uL (1.0-4.8) Monocytes # (Auto) 0.7 x10^3/uL (0.0-1.1) Eosinophils # (Auto) 0.0 x10^3/uL (0.0-0.7) Basophils # (Auto) 0.1 x10^3/uL (0.0-0.2) Sodium Level 160 mmol/L (136-145) Potassium Level 3.0 mmol/L (3.5-5.1) Chloride Level 122 mmol/L (98-107) Carbon Dioxide Level 27 mmol/L (21-32) Anion Gap 11 (6-14) Blood Urea Nitrogen 29 mg/dL (8-26) Creatinine 0.9 mg/dL (0.7-1.3) Estimated GFR (Cockcroft-Gault) 91.7 BUN/Creatinine Ratio 32 (6-20) Glucose Level 146 mg/dL (70-99) Calcium Level 8.1 mg/dL (8.5-10.1) Total Bilirubin 15.2 mg/dL (0.2-1.0) Aspartate Amino Transf (AST/SGOT) 294 U/L (15-37) Alanine Aminotransferase (ALT/SGPT) 176 U/L (16-63) Alkaline Phosphatase 103 U/L (46-116) Total Protein 6.0 g/dL (6.4-8.2) Albumin 2.5 g/dL (3.4-5.0) Albumin/Globulin Ratio 0.7 (1.0-1.7) Micro Microbiology 01/06/19 Blood Culture - Preliminary, Resulted NO GROWTH AFTER 1 DAY 01/04/19 Urine Culture - Final, Complete 01/04/19 Urine Culture Result 1 (DONALD) - Final, Complete Objective Assessment Fever resolved Leukocytosis - better Multi-Organ Failure -stable ? Sepsis w/ hypotension, lactic acidosis- cults neg Alcoholic liver disease/failure with ascites, thrombocytopenia and hepatic encephalopathy - CT head -neg Coagulopathy - S/p FFP and Vit K Pancreatitis, lipase >3400 Hepatic mass Colitis Esophagitis Acute anemia Possible cholecystitis on U/S Plan Plan of Care Electrolyte abnormalities per primary Cont Zosyn, and Flagyl for now Gen surg eval F/u BC x 2 F/u labs Monitor D/w nursing Poor prognosis Critically ill GLADYS BURGOS MD Jan 08, 2019 07:49
[2019-01-08] MEDS: MULTIVIT INFUSN,ADULT 4,VIT K 10 ML, THIAMINE INJ 100 MG, FOLIC ACID INJ 1 MG in IV NOR... IV SCH (08:12)
[2019-01-08] MEDS: IPRATRPIUM/ALBUTEROL 0.5/2.5MG 3 ML NEBU. NEB SCH ×4 (08:35→19:38)
[2019-01-08 08:42] LABS: BASE EXCESS ABG 0 mmol/L (-3-3); HCO3 ABG 23 mmol/L (21-28); PCO2 ABG 31 mmHg (35-46); PO2 ABG 70 mmHg (75-108); SAT O2 ABG 93 % (92-99)
[2019-01-08 08:47] LABS: FIO2 ABG 50
[2019-01-08] MEDS ORDERED: LABETALOL 20 MG/4 ML DISP.SYRIN. IVP PRN (09:00)
--- NOTE | 2019-01-08 09:10 | PDOC2 ---
TOMASA BOWERS Laurie [employer] 01/08/19 0910: CONSULT Date of Consult Date of Consult DATE: 01/08/19 TIME: 08:59 Reason for Consult Reason for Consult: possible cholecystitis Referring Physician Referring Physician: Dr Fox Identification/Chief Complaint Chief Complaint thrombocytopenia Source Source: Caregiver, Chart review History of Present Illness Reason for Visit: Admitted through ER for abnormal labs, thrombocytopenia. Currently is unresponsive to stimuli, on Bipap Significant [facility] alcohol abuse history--from records 25 year history, maryjane yu reports 20-30 beers daily for last 7 weeks that family knows of Over the course of last few days, more lethargica, febrile, and worsening respiratory status Past Medical History GI: GERD Psych: Anxiety, Addictions (ETOH) Past Surgical History Past Surgical History: No pertinent history Family History Family History: Family History Unknown Social History No ALCOHOL: heavy Drugs: None Current Problem List Problem List Problems Medical Problems: (1) Alcoholic liver disease Status: Acute (2) Cholelithiasis Status: Acute (3) Colitis Status: Acute (4) Jaundice Status: Acute (5) Pancreatitis Status: Acute (6) Thrombocytopenia Status: Acute Current Medications Current Medications Current Medications Iohexol (Omnipaque 240 Mg/ml) 30 ml 1X ONCE PO Last administered on 01/04/19at 15:15; Start 01/04/19 at 15:15; Stop 01/04/19 at 15:17; Status DC Iohexol (Omnipaque 300 Mg/ml) 75 ml 1X ONCE IV Last administered on 01/04/19at 16:20; Start 01/04/19 at 15:15; Stop 01/04/19 at 15:17; Status DC Info (CONTRAST GIVEN -- Rx MONITORING) 1 each PRN DAILY PRN MC SEE COMMENTS; Start 01/04/19 at 15:30; Stop 01/06/19 at 15:29; Status DC Multivitamins 10 ml/Thiamine HCl 100 mg/Folic Acid 1 mg/Sodium Chloride 1,011.2 ml @ 100 mls/ hr DAILY IV Last administered on 01/08/19at 08:12; Start 01/04/19 at 18:00; Stop 01/08/19 at 19:07 Chlordiazepoxide (Librium) 50 mg PRN Q1HR PRN PO For CIWA 8-14 Last administered on 01/04/19at 18:17; Start 01/04/19 at 17:45 Chlordiazepoxide (Librium) 100 mg PRN Q1HR PRN PO For CIWA 15 or greater Last administered on 01/05/19at 06:27; Start 01/04/19 at 17:45 Lorazepam (Ativan) 4 mg PRN Q1HR PRN PO For CIWA 8-14 Last administered on 01/04/19at 18:17; Start 01/04/19 at 17:45 Lorazepam (Ativan) 8 mg PRN Q1HR PRN PO For CIWA 15 or greater; Start 01/04/19 at 17:45 Haloperidol Lactate (Haldol Inj) 5 mg PRN Q4HRS PRN IVP H allucinatns,Confusn,Delirium; Start 01/04/19 at 17:45 Diphenhydramine HCl (Benadryl) 25 mg PRN Q15MIN PRN IVP EPS symptoms 2'Haldol admin; Start 01/04/19 at 17:45 Clonidine HCl (Catapres) 0.1 mg PRN Q1HR PRN PO SBP > 180 or DBP > 100, MRX3 Last administered on 01/08/19at 07:18; Start 01/04/19 at 17:45; Stop 01/08/19 at 08:58; Status DC Lorazepam (Ativan Inj) 2 mg PRN Q1HR PRN IV For CIWA 8-14 Last administered on 01/04/19at 21:08; Start 01/04/19 at 19:15 Lorazepam (Ativan Inj) 4 mg PRN Q1HR PRN IV For CIWA 15 or greater Last administered on 01/05/19at 06:28; Start 01/04/19 at 19:15 Lorazepam (Ativan Inj) 2 mg PRN Q15MIN PRN IV SEE COMMENTS; Start 01/04/19 at 19:15; Status UNV Lorazepam (Ativan Inj) 4 mg PRN Q15MIN PRN IV SEE COMMENTS; Start 01/04/19 at 19:15; Status UNV Ondansetron HCl (Zofran) 4 mg PRN Q6HRS PRN IV NAUSEA/VOMITING Last administered on 01/04/19at 19:34; Start 01/04/19 at 19:30 Pantoprazole Sodium (PROTONIX VIAL for IV PUSH) 40 mg DAILYAC IVP Last administered on 01/06/19at 10:36; Start 01/06/19 at 10:00; Stop 01/06/19 at 12:17; Status DC Phytonadione (Vitamin K Ampule) 10 mg 1X ONCE SQ Last administered on at 10:36; Start 01/06/19 at 10:15; Stop 01/06/19 at 10:16; Status DC Piperacillin Sod/ Tazobactam Sod (Zosyn Per Pharmacy) 1 each PRN DAILY PRN MC SEE COMMENTS; Start 01/06/19 at 10:30 Piperacillin Sod/ Tazobactam Sod 3.375 gm/Sodium Chloride 50 ml @ 100 mls/hr Q6HRS IV Last administered on 01/08/19at 06:08; Start 01/06/19 at 11:00 Lactulose (Lactulose) 30 gm Q6HRS NG Last administered on 01/08/19at 06:09; Start 01/06/19 at 12:00 Metronidazole 100 ml @ 100 mls/hr Q8HRS IV Last administered on 01/08/19at 06:08; Start 01/06/19 at 14:00 Pantoprazole Sodium 80 mg/ Sodium Chloride 100 ml @ 10 mls/hr Q10H IV Last administered on 01/08/19at 06:08; Start 01/06/19 at 12:30 Octreotide Acetate 500 mcg/ Sodium Chloride 101 ml @ 0 mls/hr CONT PRN IV SEE I/O RECORD Last administered on 01/08/19at 06:08; Start 01/06/19 at 12:15 Norepinephrine Bitartrate 250 ml @ 14.235 mls/ hr CONT PRN IV SEE I/O RECORD; Start 01/06/19 at 20:15 Albumin Human 100 ml @ 100 mls/hr 1X ONCE IV Last administered on 01/06/19at 21:30; Start 01/06/19 at 20:15; Stop 01/06/19 at 21:14; Status DC Phytonadione (Vitamin K Ampule) 10 mg 1X ONCE SQ Last administered on 01/07/19at 13:04; Start 01/07/19 at 11:45; Stop 01/07/19 at 11:46; Status DC Albuterol/ Ipratropium (Duoneb) 3 ml RTQID NEB Last administered on 01/08/19at 08:35; Start 01/07/19 at 16:00 Sodium Chloride 1,000 ml @ 75 mls/hr [id number] IV Last administered on 01/08/19at 06:09; Start 01/08/19 at 06:00 Labetalol HCl (Normodyne Iv Push) 10 mg PRN Q4HRS PRN IVP HYPERTENSION; Start 01/08/19 at 09:00; Status UNV Active Scripts Active Reported Omeprazole 40 Mg Capsule.dr Warren Cap PO DAILY Allergies Allergies: Coded Allergies: No Known Drug Allergies (Unverified , 01/04/19) ROS Review of System unable to obtain due to mental status Physical Exam General: Other (unable to stimulate pt, does not respond) HEENT: Atraumatic, Mucous membr. moist/pink Lungs: Other (bipap) Heart: Other (tachy) Abdomen: Soft, Other (ND) Extremities: Other (noted eccyhmosis, pedal edema ) Vitals VITALS Vital Signs Date Time Temp Pulse Resp B/P (MAP) Pulse Ox O2 Delivery O2 Flow Rate FiO2 01/08/19 08:28 98 BiPAP/CPAP 01/08/19 08:03 113 23 103/69 (80) 01/08/19 08:00 15.0 01/08/19 07:00 100.5 100.5 Labs Labs Laboratory Tests Test 01/06/19 09:30 01/06/19 09:50 01/06/19 10:10 01/06/19 17:15 O2 Saturation 94 % (92-99) Arterial Blood pH 7.47 (7.35-7.45) Arterial Blood pCO2 at Patient Temp 19 mmHg (35-46) Arterial Blood pO2 at Patient Temp 76 mmHg (75-108) Arterial Blood HCO3 14 mmol/L (21-28) Arterial Blood Base Excess -9 mmol/L (-3-3) FiO2 21 Nasal Screen MRSA (PCR) Negative (Negative) Lactic Acid Level 14.9 mmol/L (0.4-2.0) 11.3 mmol/L (0.4-2.0) Ammonia 209 mcmol/L (11-34) White Blood Count 15.2 x10^3/uL (4.0-11.0) Red Blood Count 2.40 x10^6/uL (4.30-5.70) Hemoglobin 8.3 g/dL (13.0-17.5) Hematocrit 24.5 % (39.0-53.0) Mean Corpuscular Volume 102 fL (79-100) Mean Corpuscular Hemoglobin 35 pg (25-35) Mean Corpuscular Hemoglobin Concent 34 g/dL (31-37) Red Cell Distribution Width 21.0 % (11.5-14.5) Platelet Count 110 x10^3/uL (140-400) Haptoglobin 12 mg/dL (34-200) Prothrombin Time 26.4 SEC (11.7-14.0) Prothromb Time International Ratio 2.5 (0.8-1.1) Tumor Marker Alpha Fetoprotein 4.1 ng/mL (0.0-8.3) Test 01/07/19 04:20 01/07/19 09:03 01/07/19 18:55 01/08/19 03:55 White Blood Count 16.0 x10^3/uL (4.0-11.0) 8.7 x10^3/uL (4.0-11.0) Red Blood Count 2.15 x10^6/uL (4.30-5.70) 2.42 x10^6/uL (4.30-5.70) Hemoglobin 7.5 g/dL (13.0-17.5) 8.7 g/dL (13.0-17.5) Hematocrit 21.8 % (39.0-53.0) 25.0 % (39.0-53.0) Mean Corpuscular Volume 101 fL (79-100) 104 fL (79-100) Mean Corpuscular Hemoglobin 35 pg (25-35) 36 pg (25-35) Mean Corpuscular Hemoglobin Concent 34 g/dL (31-37) 35 g/dL (31-37) Red Cell Distribution Width 21.8 % (11.5-14.5) 23.1 % (11.5-14.5) Platelet Count 121 x10^3/uL (140-400) 113 x10^3/uL (140-400) Neutrophils (%) (Auto) 80 % (31-73) 82 % (31-73) Lymphocytes (%) (Auto) 11 % (24-48) 9 % (24-48) Monocytes (%) (Auto) 9 % (0-9) 8 % (0-9) Eosinophils (%) (Auto) 0 % (0-3) 0 % (0-3) Basophils (%) (Auto) 0 % (0-3) 1 % (0-3) Neutrophils # (Auto) 12.8 x10^3/uL (1.8-7.7) 7.1 x10^3/uL (1.8-7.7) Lymphocytes # (Auto) 1.8 x10^3/uL (1.0-4.8) 0.8 x10^3/uL (1.0-4.8) Monocytes # (Auto) 1.4 x10^3/uL (0.0-1.1) 0.7 x10^3/uL (0.0-1.1) Eosinophils # (Auto) 0.0 x10^3/uL (0.0-0.7) 0.0 x10^3/uL (0.0-0.7) Basophils # (Auto) 0.0 x10^3/uL (0.0-0.2) 0.1 x10^3/uL (0.0-0.2) Segmented Neutrophils % 80 % (35-66) Band Neutrophils % 9 % (0-9) Lymphocytes % 9 % (24-48) Monocytes % 2 % (0-10) Nucleated Red Blood Cells 1 Platelet Estimate Decreased (ADEQUATE) Anisocytosis Mod Sodium Level 148 mmol/L (136-145) 160 mmol/L (136-145) Potassium Level 3.7 mmol/L (3.5-5.1) 3.0 mmol/L (3.5-5.1) Chloride Level 113 mmol/L (98-107) 122 mmol/L (98-107) Carbon Dioxide Level 21 mmol/L (21-32) 27 mmol/L (21-32) Anion Gap 14 (6-14) 11 (6-14) Blood Urea Nitrogen 60 mg/dL (8-26) 29 mg/dL (8-26) Creatinine 1.3 mg/dL (0.7-1.3) 0.9 mg/dL (0.7-1.3) Estimated GFR (Cockcroft-Gault) 60.0 91.7 BUN/Creatinine Ratio 46 (6-20) 32 (6-20) Glucose Level 171 mg/dL (70-99) 146 mg/dL (70-99) Calcium Level 7.8 mg/dL (8.5-10.1) 8.1 mg/dL (8.5-10.1) Total Bilirubin 12.5 mg/dL (0.2-1.0) 15.2 mg/dL (0.2-1.0) Aspartate Amino Transf (AST/SGOT) 309 U/L (15-37) 294 U/L (15-37) Alanine Aminotransferase (ALT/SGPT) 154 U/L (16-63) 176 U/L (16-63) Alkaline Phosphatase 94 U/L (46-116) 103 U/L (46-116) Total Protein 5.2 g/dL (6.4-8.2) 6.0 g/dL (6.4-8.2) Albumin 2.2 g/dL (3.4-5.0) 2.5 g/dL (3.4-5.0) Albumin/Globulin Ratio 0.7 (1.0-1.7) 0.7 (1.0-1.7) Prothrombin Time 27.6 SEC (11.7-14.0) 23.9 SEC (11.7-14.0) 23.8 SEC (11.7-14.0) Prothromb Time International Ratio 2.6 (0.8-1.1) 2.2 (0.8-1.1) 2.2 (0.8-1.1) Thyroid Stimulating Hormone (TSH) 0.052 uIU/mL (0.358-3.74) Ammonia 28 mcmol/L (11-34) 20 mcmol/L (11-34) Test 01/08/19 08:00 O2 Saturation 93 % (92-99) Arterial Blood pH 7.49 (7.35-7.45) Arterial Blood pCO2 at Patient Temp 31 mmHg (35-46) Arterial Blood pO2 at Patient Temp 70 mmHg (75-108) Arterial Blood HCO3 23 mmol/L (21-28) Arterial Blood Base Excess 0 mmol/L (-3-3) FiO2 50 Laboratory Tests Test 01/07/19 09:03 01/07/19 18:55 01/08/19 03:55 01/08/19 08:00 Prothrombin Time 27.6 SEC (11.7-14.0) 23.9 SEC (11.7-14.0) 23.8 SEC (11.7-14.0) Prothromb Time International Ratio 2.6 (0.8-1.1) 2.2 (0.8-1.1) 2.2 (0.8-1.1) Thyroid Stimulating Hormone (TSH) 0.052 uIU/mL (0.358-3.74) Ammonia 28 mcmol/L (11-34) 20 mcmol/L (11-34) White Blood Count 8.7 x10^3/uL (4.0-11.0) Red Blood Count 2.42 x10^6/uL (4.30-5.70) Hemoglobin 8.7 g/dL (13.0-17.5) Hematocrit 25.0 % (39.0-53.0) Mean Corpuscular Volume 104 fL (79-100) Mean Corpuscular Hemoglobin 36 pg (25-35) Mean Corpuscular Hemoglobin Concent 35 g/dL (31-37) Red Cell Distribution Width 23.1 % (11.5-14.5) Platelet Count 113 x10^3/uL (140-400) Neutrophils (%) (Auto) 82 % (31-73) Lymphocytes (%) (Auto) 9 % (24-48) Monocytes (%) (Auto) 8 % (0-9) Eosinophils (%) (Auto) 0 % (0-3) Basophils (%) (Auto) 1 % (0-3) Neutrophils # (Auto) 7.1 x10^3/uL (1.8-7.7) Lymphocytes # (Auto) 0.8 x10^3/uL (1.0-4.8) Monocytes # (Auto) 0.7 x10^3/uL (0.0-1.1) Eosinophils # (Auto) 0.0 x10^3/uL (0.0-0.7) Basophils # (Auto) 0.1 x10^3/uL (0.0-0.2) Sodium Level 160 mmol/L (136-145) Potassium Level 3.0 mmol/L (3.5-5.1) Chloride Level 122 mmol/L (98-107) Carbon Dioxide Level 27 mmol/L (21-32) Anion Gap 11 (6-14) Blood Urea Nitrogen 29 mg/dL (8-26) Creatinine 0.9 mg/dL (0.7-1.3) Estimated GFR (Cockcroft-Gault) 91.7 BUN/Creatinine Ratio 32 (6-20) Glucose Level 146 mg/dL (70-99) Calcium Level 8.1 mg/dL (8.5-10.1) Total Bilirubin 15.2 mg/dL (0.2-1.0) Aspartate Amino Transf (AST/SGOT) 294 U/L (15-37) Alanine Aminotransferase (ALT/SGPT) 176 U/L (16-63) Alkaline Phosphatase 103 U/L (46-116) Total Protein 6.0 g/dL (6.4-8.2) Albumin 2.5 g/dL (3.4-5.0) Albumin/Globulin Ratio 0.7 (1.0-1.7) O2 Saturation 93 % (92-99) Arterial Blood pH 7.49 (7.35-7.45) Arterial Blood pCO2 at Patient Temp 31 mmHg (35-46) Arterial Blood pO2 at Patient Temp 70 mmHg (75-108) Arterial Blood HCO3 23 mmol/L (21-28) Arterial Blood Base Excess 0 mmol/L (-3-3) FiO2 50 Assessment/Plan Assessment/Plan cirrhosis, jaundice, ascites, thrombocytopenia, coagulopathy ? cholecystitis--unsure if imaging is actually from underlying liver disease or actual acute cholecystitis CT with colitis sepsis would manage with supportive medical measures not a surgical candidate due to liver disease--will review with JESSICA Patterson MD 01/08/19 0940: CONSULT Assessment/Plan Assessment/Plan pt seen, examined, chart reviewed agree with above pt not a surgical candidate grim prognosis TOMASA BOWERS APRN Jan 08, 2019 09:10 JESSICA GREWAL MD Jan 08, 2019 09:40
--- NOTE | 2019-01-08 09:20 | PDOC ---
PROGRESS NOTES Chief Complaint Chief Complaint Problems: (1) Jaundice (2) Alcoholic liver disease (3) Pancreatitis (4) Thrombocytopenia Chief Complaint: Bruising and jaundice History of Present Illness History of Present Illness 7�15�2019 Sepsis w/ hypotension, lactic acidosis and fever severely encephalopathic nonverbal Hemoglobin 7.5 post transfusion INR has climbed to 2.6 moved ICU His and daughter here Ammonia levels 208 full code for now I discussed nurse ID following GI.consulted pulm consulted vit k 10mg sq plus 2 units FFP 01/07 PCXR 01/07 echo 01/07, cardiology consult neurology consult, ct head 01/07 abd sono Patient was seen and examined Bruising and jaundice severe alcohol abuse HX according to daughter Thrombocytopenia. , most likely secondary to his liver disease and cirrhosis, Irregular wall thickening of the cecum and ascending colon with surrounding inflammatory type change and fluid. This is most compatible with severe colitis, could be of ischemic, infectious or inflammatory etiology. Colonic neoplasm not excludable. Milder colitis involving the remaining colon. Mild gallbladder distention with wall thickening and pericholecystic fluid, concerning for cholecystitis. Mild abdominal and pelvic ascites Mild wall thickening of the distal esophagus. Mild wall thickening of the duodenum. No significant small bowel distention. 38 min cc time Vitals Vitals Vital Signs Date Time Temp Pulse Resp B/P (MAP) Pulse Ox O2 Delivery O2 Flow Rate FiO2 01/08/19 09:00 113 23 140/74 (96) 100 BiPAP/CPAP 01/08/19 08:00 15.0 01/08/19 07:00 100.5 100.5 Physical Exam Physical Exam GENERAL: lethargic on Bipap HEENT: Pupils equally round and reactive. Icterus. NG tube in place NECK: Supple. LUNGS: decreased in bases HEART: S1 and S2 regular ABDOMEN: Mildly distended, soft, no grimace or guarding to palpation. Bowel sounds present. GENITOURINARY: Indwelling Galdamez in place. Urine is dark and concentrated. EXTREMITIES: No gross edema or cyanosis IVS: Peripheral IV looks okay. SKIN: Warm to touch. He has multiple ecchymoses, especially lower extremities. NEUROLOGIC: unresponsive. General: No acute distress, Other (unable to stimulate pt, does not respond) Heart: Other (tachy) Lungs: Clear, Crackles, Other (symmetrical chest expansion on respiration) Abdomen: Soft, Other (ND) Extremities: Other (noted eccyhmosis, pedal edema ) Skin: Other (Bruising and jaundice) Labs LABS CT head without contrast History: Encephalopathy Technique: Noncontrast CT of the head. Exposure: One or more of the following individualized dose reduction techniques were utilized for this examination: 1. Automated exposure control 2. Adjustment of the mA and/or kV according to patient size 3. Use of iterative reconstruction technique. Comparison: None. Findings: No intracranial hemorrhage. No mass effect. No hydrocephalus. Extra-axial spaces are unremarkable. Imaged orbits are unremarkable. Imaged paranasal sinuses and mastoid air cells are clear. No acute calvarial fracture. Impression: 1. No acute intracranial abnormality. Electronically signed by: Jitendra Rankin MD (01/07/2019 3:54 PM) [id number] Laboratory Tests Test 01/07/19 18:55 01/08/19 03:55 01/08/19 08:00 Prothrombin Time 23.9 SEC (11.7-14.0) 23.8 SEC (11.7-14.0) Prothromb Time International Ratio 2.2 (0.8-1.1) 2.2 (0.8-1.1) Ammonia 28 mcmol/L (11-34) 20 mcmol/L (11-34) White Blood Count 8.7 x10^3/uL (4.0-11.0) Red Blood Count 2.42 x10^6/uL (4.30-5.70) Hemoglobin 8.7 g/dL (13.0-17.5) Hematocrit 25.0 % (39.0-53.0) Mean Corpuscular Volume 104 fL (79-100) Mean Corpuscular Hemoglobin 36 pg (25-35) Mean Corpuscular Hemoglobin Concent 35 g/dL (31-37) Red Cell Distribution Width 23.1 % (11.5-14.5) Platelet Count 113 x10^3/uL (140-400) Neutrophils (%) (Auto) 82 % (31-73) Lymphocytes (%) (Auto) 9 % (24-48) Monocytes (%) (Auto) 8 % (0-9) Eosinophils (%) (Auto) 0 % (0-3) Basophils (%) (Auto) 1 % (0-3) Neutrophils # (Auto) 7.1 x10^3/uL (1.8-7.7) Lymphocytes # (Auto) 0.8 x10^3/uL (1.0-4.8) Monocytes # (Auto) 0.7 x10^3/uL (0.0-1.1) Eosinophils # (Auto) 0.0 x10^3/uL (0.0-0.7) Basophils # (Auto) 0.1 x10^3/uL (0.0-0.2) Sodium Level 160 mmol/L (136-145) Potassium Level 3.0 mmol/L (3.5-5.1) Chloride Level 122 mmol/L (98-107) Carbon Dioxide Level 27 mmol/L (21-32) Anion Gap 11 (6-14) Blood Urea Nitrogen 29 mg/dL (8-26) Creatinine 0.9 mg/dL (0.7-1.3) Estimated GFR (Cockcroft-Gault) 91.7 BUN/Creatinine Ratio 32 (6-20) Glucose Level 146 mg/dL (70-99) Calcium Level 8.1 mg/dL (8.5-10.1) Total Bilirubin 15.2 mg/dL (0.2-1.0) Aspartate Amino Transf (AST/SGOT) 294 U/L (15-37) Alanine Aminotransferase (ALT/SGPT) 176 U/L (16-63) Alkaline Phosphatase 103 U/L (46-116) Total Protein 6.0 g/dL (6.4-8.2) Albumin 2.5 g/dL (3.4-5.0) Albumin/Globulin Ratio 0.7 (1.0-1.7) O2 Saturation 93 % (92-99) Arterial Blood pH 7.49 (7.35-7.45) Arterial Blood pCO2 at Patient Temp 31 mmHg (35-46) Arterial Blood pO2 at Patient Temp 70 mmHg (75-108) Arterial Blood HCO3 23 mmol/L (21-28) Arterial Blood Base Excess 0 mmol/L (-3-3) FiO2 50 Assessment and Plan Assessmemt and Plan Problems Medical Problems: (1) Alcoholic liver disease Status: Acute (2) Cholelithiasis Status: Acute (3) Colitis Status: Acute (4) Jaundice Status: Acute (5) Pancreatitis Status: Acute (6) Thrombocytopenia Status: Acute Comment Review of Relevant I have reviewed the following items pierre (where applicable) has been applied. Labs Laboratory Tests Test 01/06/19 09:30 01/06/19 09:50 01/06/19 10:10 01/06/19 17:15 O2 Saturation 94 % (92-99) Arterial Blood pH 7.47 (7.35-7.45) Arterial Blood pCO2 at Patient Temp 19 mmHg (35-46) Arterial Blood pO2 at Patient Temp 76 mmHg (75-108) Arterial Blood HCO3 14 mmol/L (21-28) Arterial Blood Base Excess -9 mmol/L (-3-3) FiO2 21 Nasal Screen MRSA (PCR) Negative (Negative) Lactic Acid Level 14.9 mmol/L (0.4-2.0) 11.3 mmol/L (0.4-2.0) Ammonia 209 mcmol/L (11-34) White Blood Count 15.2 x10^3/uL (4.0-11.0) Red Blood Count 2.40 x10^6/uL (4.30-5.70) Hemoglobin 8.3 g/dL (13.0-17.5) Hematocrit 24.5 % (39.0-53.0) Mean Corpuscular Volume 102 fL (79-100) Mean Corpuscular Hemoglobin 35 pg (25-35) Mean Corpuscular Hemoglobin Concent 34 g/dL (31-37) Red Cell Distribution Width 21.0 % (11.5-14.5) Platelet Count 110 x10^3/uL (140-400) Haptoglobin 12 mg/dL (34-200) Prothrombin Time 26.4 SEC (11.7-14.0) Prothromb Time International Ratio 2.5 (0.8-1.1) Tumor Marker Alpha Fetoprotein 4.1 ng/mL (0.0-8.3) Test 01/07/19 04:20 01/07/19 09:03 01/07/19 18:55 01/08/19 03:55 White Blood Count 16.0 x10^3/uL (4.0-11.0) 8.7 x10^3/uL (4.0-11.0) Red Blood Count 2.15 x10^6/uL (4.30-5.70) 2.42 x10^6/uL (4.30-5.70) Hemoglobin 7.5 g/dL (13.0-17.5) 8.7 g/dL (13.0-17.5) Hematocrit 21.8 % (39.0-53.0) 25.0 % (39.0-53.0) Mean Corpuscular Volume 101 fL (79-100) 104 fL (79-100) Mean Corpuscular Hemoglobin 35 pg (25-35) 36 pg (25-35) Mean Corpuscular Hemoglobin Concent 34 g/dL (31-37) 35 g/dL (31-37) Red Cell Distribution Width 21.8 % (11.5-14.5) 23.1 % (11.5-14.5) Platelet Count 121 x10^3/uL (140-400) 113 x10^3/uL (140-400) Neutrophils (%) (Auto) 80 % (31-73) 82 % (31-73) Lymphocytes (%) (Auto) 11 % (24-48) 9 % (24-48) Monocytes (%) (Auto) 9 % (0-9) 8 % (0-9) Eosinophils (%) (Auto) 0 % (0-3) 0 % (0-3) Basophils (%) (Auto) 0 % (0-3) 1 % (0-3) Neutrophils # (Auto) 12.8 x10^3/uL (1.8-7.7) 7.1 x10^3/uL (1.8-7.7) Lymphocytes # (Auto) 1.8 x10^3/uL (1.0-4.8) 0.8 x10^3/uL (1.0-4.8) Monocytes # (Auto) 1.4 x10^3/uL (0.0-1.1) 0.7 x10^3/uL (0.0-1.1) Eosinophils # (Auto) 0.0 x10^3/uL (0.0-0.7) 0.0 x10^3/uL (0.0-0.7) Basophils # (Auto) 0.0 x10^3/uL (0.0-0.2) 0.1 x10^3/uL (0.0-0.2) Segmented Neutrophils % 80 % (35-66) Band Neutrophils % 9 % (0-9) Lymphocytes % 9 % (24-48) Monocytes % 2 % (0-10) Nucleated Red Blood Cells 1 Platelet Estimate Decreased (ADEQUATE) Anisocytosis Mod Sodium Level 148 mmol/L (136-145) 160 mmol/L (136-145) Potassium Level 3.7 mmol/L (3.5-5.1) 3.0 mmol/L (3.5-5.1) Chloride Level 113 mmol/L (98-107) 122 mmol/L (98-107) Carbon Dioxide Level 21 mmol/L (21-32) 27 mmol/L (21-32) Anion Gap 14 (6-14) 11 (6-14) Blood Urea Nitrogen 60 mg/dL (8-26) 29 mg/dL (8-26) Creatinine 1.3 mg/dL (0.7-1.3) 0.9 mg/dL (0.7-1.3) Estimated GFR (Cockcroft-Gault) 60.0 91.7 BUN/Creatinine Ratio 46 (6-20) 32 (6-20) Glucose Level 171 mg/dL (70-99) 146 mg/dL (70-99) Calcium Level 7.8 mg/dL (8.5-10.1) 8.1 mg/dL (8.5-10.1) Total Bilirubin 12.5 mg/dL (0.2-1.0) 15.2 mg/dL (0.2-1.0) Aspartate Amino Transf (AST/SGOT) 309 U/L (15-37) 294 U/L (15-37) Alanine Aminotransferase (ALT/SGPT) 154 U/L (16-63) 176 U/L (16-63) Alkaline Phosphatase 94 U/L (46-116) 103 U/L (46-116) Total Protein 5.2 g/dL (6.4-8.2) 6.0 g/dL (6.4-8.2) Albumin 2.2 g/dL (3.4-5.0) 2.5 g/dL (3.4-5.0) Albumin/Globulin Ratio 0.7 (1.0-1.7) 0.7 (1.0-1.7) Prothrombin Time 27.6 SEC (11.7-14.0) 23.9 SEC (11.7-14.0) 23.8 SEC (11.7-14.0) Prothromb Time International Ratio 2.6 (0.8-1.1) 2.2 (0.8-1.1) 2.2 (0.8-1.1) Thyroid Stimulating Hormone (TSH) 0.052 uIU/mL (0.358-3.74) Ammonia 28 mcmol/L (11-34) 20 mcmol/L (11-34) Test 01/08/19 08:00 O2 Saturation 93 % (92-99) Arterial Blood pH 7.49 (7.35-7.45) Arterial Blood pCO2 at Patient Temp 31 mmHg (35-46) Arterial Blood pO2 at Patient Temp 70 mmHg (75-108) Arterial Blood HCO3 23 mmol/L (21-28) Arterial Blood Base Excess 0 mmol/L (-3-3) FiO2 50 Laboratory Tests Test 01/07/19 18:55 01/08/19 03:55 01/08/19 08:00 Prothrombin Time 23.9 SEC (11.7-14.0) 23.8 SEC (11.7-14.0) Prothromb Time International Ratio 2.2 (0.8-1.1) 2.2 (0.8-1.1) Ammonia 28 mcmol/L (11-34) 20 mcmol/L (11-34) White Blood Count 8.7 x10^3/uL (4.0-11.0) Red Blood Count 2.42 x10^6/uL (4.30-5.70) Hemoglobin 8.7 g/dL (13.0-17.5) Hematocrit 25.0 % (39.0-53.0) Mean Corpuscular Volume 104 fL (79-100) Mean Corpuscular Hemoglobin 36 pg (25-35) Mean Corpuscular Hemoglobin Concent 35 g/dL (31-37) Red Cell Distribution Width 23.1 % (11.5-14.5) Platelet Count 113 x10^3/uL (140-400) Neutrophils (%) (Auto) 82 % (31-73) Lymphocytes (%) (Auto) 9 % (24-48) Monocytes (%) (Auto) 8 % (0-9) Eosinophils (%) (Auto) 0 % (0-3) Basophils (%) (Auto) 1 % (0-3) Neutrophils # (Auto) 7.1 x10^3/uL (1.8-7.7) Lymphocytes # (Auto) 0.8 x10^3/uL (1.0-4.8) Monocytes # (Auto) 0.7 x10^3/uL (0.0-1.1) Eosinophils # (Auto) 0.0 x10^3/uL (0.0-0.7) Basophils # (Auto) 0.1 x10^3/uL (0.0-0.2) Sodium Level 160 mmol/L (136-145) Potassium Level 3.0 mmol/L (3.5-5.1) Chloride Level 122 mmol/L (98-107) Carbon Dioxide Level 27 mmol/L (21-32) Anion Gap 11 (6-14) Blood Urea Nitrogen 29 mg/dL (8-26) Creatinine 0.9 mg/dL (0.7-1.3) Estimated GFR (Cockcroft-Gault) 91.7 BUN/Creatinine Ratio 32 (6-20) Glucose Level 146 mg/dL (70-99) Calcium Level 8.1 mg/dL (8.5-10.1) Total Bilirubin 15.2 mg/dL (0.2-1.0) Aspartate Amino Transf (AST/SGOT) 294 U/L (15-37) Alanine Aminotransferase (ALT/SGPT) 176 U/L (16-63) Alkaline Phosphatase 103 U/L (46-116) Total Protein 6.0 g/dL (6.4-8.2) Albumin 2.5 g/dL (3.4-5.0) Albumin/Globulin Ratio 0.7 (1.0-1.7) O2 Saturation 93 % (92-99) Arterial Blood pH 7.49 (7.35-7.45) Arterial Blood pCO2 at Patient Temp 31 mmHg (35-46) Arterial Blood pO2 at Patient Temp 70 mmHg (75-108) Arterial Blood HCO3 23 mmol/L (21-28) Arterial Blood Base Excess 0 mmol/L (-3-3) FiO2 50 Microbiology 01/06/19 Blood Culture - Preliminary, Resulted NO GROWTH AFTER 1 DAY 01/04/19 Urine Culture - Final, Complete 01/04/19 Urine Culture Result 1 (DONALD) - Final, Complete Medications Current Medications Iohexol (Omnipaque 240 Mg/ml) 30 ml 1X ONCE PO Last administered on 01/04/19at 15:15; Start 01/04/19 at 15:15; Stop 01/04/19 at 15:17; Status DC Iohexol (Omnipaque 300 Mg/ml) 75 ml 1X ONCE IV Last administered on 01/04/19at 16:20; Start 01/04/19 at 15:15; Stop 01/04/19 at 15:17; Status DC Info (CONTRAST GIVEN -- Rx MONITORING) 1 each PRN DAILY PRN MC SEE COMMENTS; Start 01/04/19 at 15:30; Stop 01/06/19 at 15:29; Status DC Multivitamins 10 ml/Thiamine HCl 100 mg/Folic Acid 1 mg/Sodium Chloride 1,011.2 ml @ 100 mls/ hr DAILY IV Last administered on 01/08/19at 08:12; Start 01/04/19 at 18:00; Stop 01/08/19 at 19:07 Chlordiazepoxide (Librium) 50 mg PRN Q1HR PRN PO For CIWA 8-14 Last administered on 01/04/19at 18:17; Start 01/04/19 at 17:45 Chlordiazepoxide (Librium) 100 mg PRN Q1HR PRN PO For CIWA 15 or greater Last administered on 01/05/19at 06:27; Start 01/04/19 at 17:45 Lorazepam (Ativan) 4 mg PRN Q1HR PRN PO For CIWA 8-14 Last administered on 01/04/19at 18:17; Start 01/04/19 at 17:45 Lorazepam (Ativan) 8 mg PRN Q1HR PRN PO For CIWA 15 or greater; Start 01/04/19 at 17:45 Haloperidol Lactate (Haldol Inj) 5 mg PRN Q4HRS PRN IVP Hallucinatns,Confusn,Delirium; Start 01/04/19 at 17:45 Diphenhydramine HCl (Benadryl) 25 mg PRN Q15MIN PRN IVP EPS symptoms 2'Haldol admin; Start 01/04/19 at 17:45 Clonidine HCl (Catapres) 0.1 mg PRN Q1HR PRN PO SBP > 180 or DBP > 100, MRX3 Last administered on 01/08/19at 07:18; Start 01/04/19 at 17:45; Stop 01/08/19 at 08:58; Status DC Lorazepam (Ativan Inj) 2 mg PRN Q1HR PRN IV For CIWA 8-14 Last administered on 01/04/19at 21:08; Start 01/04/19 at 19:15 Lorazepam (Ativan Inj) 4 mg PRN Q1HR PRN IV For CIWA 15 or greater Last administered on 01/05/19at 06:28; Start 01/04/19 at 19:15 Lorazepam (Ativan Inj) 2 mg PRN Q15MIN PRN IV SEE COMMENTS; Start 01/04/19 at 19:15; Status UNV Lorazepam (Ativan Inj) 4 mg PRN Q15MIN PRN IV SEE COMMENTS; Start 01/04/19 at 19:15; Status UNV Ondansetron HCl (Zofran) 4 mg PRN Q6HRS PRN IV NAUSEA/VOMITING Last administered on 01/04/19at 19:34; Start 01/04/19 at 19:30 Pantoprazole Sodium (PROTONIX VIAL for IV PUSH) 40 mg DAILYAC IVP Last administered on 01/06/19at 10:36; Start 01/06/19 at 10:00; Stop 01/06/19 at 12:17; Status DC Phytonadione (Vitamin K Ampule) 10 mg 1X ONCE SQ Last administered on 01/06/19at 10:36; Start 01/06/19 at 10:15; Stop 01/06/19 at 10:16; Status DC Piperacillin Sod/ Tazobactam Sod (Zosyn Per Pharmacy) 1 each PRN DAILY PRN MC SEE COMMENTS; Start 01/06/19 at 10:30 Piperacillin Sod/ Tazobactam Sod 3.375 gm/Sodium Chloride 50 ml @ 100 mls/hr Q6HRS IV Last administered on 01/08/19at 06:08; Start 01/06/19 at 11:00 Lactulose (Lactulose) 30 gm Q6HRS NG Last administered on 01/08/19at 06:09; Start 01/06/19 at 12:00 Metronidazole 100 ml @ 100 mls/hr Q8HRS IV Last administered on 01/08/19at 06:08; Start 01/06/19 at 14:00 Pantoprazole Sodium 80 mg/ Sodium Chloride 100 ml @ 10 mls/hr Q10H IV Last administered on 01/08/19at 06:08; Start 01/06/19 at 12:30 Octreotide Acetate 500 mcg/ Sodium Chloride 101 ml @ 0 mls/hr CONT PRN IV SEE I/O RECORD Last administered on 01/08/19at 06:08; Start 01/06/19 at 12:15 Norepinephrine Bitartrate 250 ml @ 14.235 mls/ hr CONT PRN IV SEE I/O RECORD; Start 01/06/19 at 20:15 Albumin Human 100 ml @ 100 mls/hr 1X ONCE IV Last administered on 01/06/19at 21:30; Start 01/06/19 at 20:15; Stop 01/06/19 at 21:14; Status DC Phytonadione (Vitamin K Ampule) 10 mg 1X ONCE SQ Last administered on 01/07/19at 13:04; Start 01/07/19 at 11:45; Stop 01/07/19 at 11:46; Status DC Albuterol/ Ipratropium (Duoneb) 3 ml RTQID NEB Last administered on 01/08/19at 08:35; Start 01/07/19 at 16:00 Sodium Chloride 1,000 ml @ 75 mls/hr [id number] IV Last administered on 01/08/19at 06:09; Start 01/08/19 at 06:00 Labetalol HCl (Normodyne Iv Push) 10 mg PRN Q4HRS PRN IVP HYPERTENSION; Start 01/08/19 at 09:00 Active Scripts Active Reported Omeprazole 40 Mg Capsule. 1 Cap PO DAILY Vitals/I & O Vital Sign - Last 24 Hours 01/07/19 01/07/19 01/07/19 01/07/19 10:00 11:00 12:00 12:00 Temp 98.0 98.0 Pulse 114 110 106 Resp 23 20 20 B/P (MAP) 108/67 (81) 110/67 (81) 117/72 (87) Pulse Ox 91 91 94 O2 Delivery Venturi Mask Venturi Mask Venturi Mask Venturi Mask 7/01/07/19 01/07/19 01/07/19 13:00 13:16 13:56 14:03 Temp 98.2 98.2 98.2 98.2 98.2 98.2 Pulse 106 105 105 105 Resp 20 20 20 18 B/P (MAP) 107/72 (84) 107/72 110/72 (85) 107/72 Pulse Ox 94 91 O2 Delivery Venturi Mask Venturi Mask 01/07/19 01/07/19 01/07/19 01/07/19 14:20 15:00 16:00 16:00 Temp 98.2 98.2 98.2 98.2 Pulse 102 102 100 Resp 22 20 20 B/P (MAP) 126/70 112/74 (87) 129/77 (94) Pulse Ox 89 89 O2 Delivery Venturi Mask Venturi Mask Venturi Mask O2 Flow Rate 15.0 15.0 15.0 01/07/19 01/07/19 01/07/19 01/07/19 16:20 16:40 17:00 18:00 Temp 98.2 98.2 Pulse 102 102 Resp 20 20 B/P (MAP) 142/81 (101) 148/86 (106) Pulse Ox 89 94 97 100 O2 Delivery Venturi Mask BiPAP/CPAP BiPAP/CPAP BiPAP/CPAP O2 Flow Rate 15.0 01/07/19 01/07/19 01/07/19 01/07/19 19:00 20:00 20:00 20:00 Temp 98.3 98.3 Pulse 102 101 Resp 18 18 B/P (MAP) 141/86 (104) 143/85 (104) Pulse Ox 100 100 O2 Delivery BiPAP/CPAP Bi-pap BiPAP/CPAP O2 Flow Rate 15.0 01/07/19 01/07/19 01/07/19 01/07/19 20:01 21:00 22:00 22:20 Pulse 102 106 Resp 18 20 B/P (MAP) 148/88 (108) 151/96 (114) Pulse Ox 99 100 100 99 O2 Delivery BiPAP/CPAP BiPAP/CPAP BiPAP/CPAP BiPAP/CPAP 01/07/19 01/07/19 01/08/19 01/08/19 23:00 23:59 00:00 00:01 Temp 98.7 98.7 Pulse 106 106 Resp 20 20 B/P (MAP) 139/81 (100) 145/79 (101) Pulse Ox 100 100 O2 Delivery BiPAP/CPAP Bi-pap BiPAP/CPAP O2 Flow Rate 15.0 01/08/19 01/08/19 01/08/19 01/08/19 00:15 01:00 02:00 03:00 Pulse 107 111 111 Resp 20 20 20 B/P (MAP) 155/84 (107) 152/82 (105) 152/82 (105) Pulse Ox 99 100 100 100 O2 Delivery BiPAP/CPAP BiPAP/CPAP BiPAP/CPAP BiPAP/CPAP 01/08/19 01/08/19 01/08/19 01/08/19 03:40 04:00 04:00 04:00 Temp 99.0 99.0 Pulse 111 Resp 20 B/P (MAP) 150/81 (104) Pulse Ox 99 100 O2 Delivery BiPAP/CPAP BiPAP/CPAP Bi-pap O2 Flow Rate 15.0 01/08/19 01/08/19 01/08/19 01/08/19 05:00 05:50 06:00 07:00 Temp 100.5 100.5 Pulse 112 116 120 Resp 20 22 B/P (MAP) 157/89 (111) 164/93 (116) 170/97 (121) Pulse Ox 100 99 100 100 O2 Delivery BiPAP/CPAP BiPAP/CPAP BiPAP/CPAP 01/08/19 01/08/19 01/08/19 01/08/19 07:18 07:54 08:00 08:03 Pulse 120 113 Resp 23 B/P (MAP) 170/97 103/69 (80) Pulse Ox 100 O2 Delivery Bi-pap BiPAP/CPAP O2 Flow Rate 15.0 01/08/19 01/08/19 08:28 09:00 Pulse 113 Resp 23 B/P (MAP) 140/74 (96) Pulse Ox 98 100 O2 Delivery BiPAP/CPAP BiPAP/CPAP Intake and Output 01/07/19 01/07/19 01/08/19 14:59 22:59 06:59 Intake Total 520 ml 1687 ml 638 ml Output Total 665 ml 2780 ml 880 ml Balance -145 ml -1093 ml -242 ml DANG OWUSU MD Jan 08, 2019 09:20
--- NOTE | 2019-01-08 11:09 | PDOC ---
PULMONARY PROGRESS NOTES Subjective on BIPAP,spont breathing, not responsive Vitals Vital Signs Date Time Temp Pulse Resp B/P (MAP) Pulse Ox O2 Delivery O2 Flow Rate FiO2 01/08/19 10:00 99.0 113 20 138/75 (96) 97 BiPAP/CPAP 99.0 01/08/19 08:00 15.0 Lungs: Other (decrease bs) Cardiovascular: S1 Abdomen: Soft Extremities: Other (1+edema) Labs Laboratory Tests Test 01/06/19 17:15 01/07/19 04:20 01/07/19 09:03 01/07/19 18:55 White Blood Count 15.2 x10^3/uL (4.0-11.0) 16.0 x10^3/uL (4.0-11.0) Red Blood Count 2.40 x10^6/uL (4.30-5.70) 2.15 x10^6/uL (4.30-5.70) Hemoglobin 8.3 g/dL (13.0-17.5) 7.5 g/dL (13.0-17.5) Hematocrit 24.5 % (39.0-53.0) 21.8 % (39.0-53.0) Mean Corpuscular Volume 102 fL (79-100) 101 fL (79-100) Mean Corpuscular Hemoglobin 35 pg (25-35) 35 pg (25-35) Mean Corpuscular Hemoglobin Concent 34 g/dL (31-37) 34 g/dL (31-37) Red Cell Distribution Width 21.0 % (11.5-14.5) 21.8 % (11.5-14.5) Platelet Count 110 x10^3/uL (140-400) 121 x10^3/uL (140-400) Haptoglobin 12 mg/dL (34-200) Prothrombin Time 26.4 SEC (11.7-14.0) 27.6 SEC (11.7-14.0) 23.9 SEC (11.7-14.0) Prothromb Time International Ratio 2.5 (0.8-1.1) 2.6 (0.8-1.1) 2.2 (0.8-1.1) Lactic Acid Level 11.3 mmol/L (0.4-2.0) Tumor Marker Alpha Fetoprotein 4.1 ng/mL (0.0-8.3) Neutrophils (%) (Auto) 80 % (31-73) Lymphocytes (%) (Auto) 11 % (24-48) Monocytes (%) (Auto) 9 % (0-9) Eosinophils (%) (Auto) 0 % (0-3) Basophils (%) (Auto) 0 % (0-3) Neutrophils # (Auto) 12.8 x10^3/uL (1.8-7.7) Lymphocytes # (Auto) 1.8 x10^3/uL (1.0-4.8) Monocytes # (Auto) 1.4 x10^3/uL (0.0-1.1) Eosinophils # (Auto) 0.0 x10^3/uL (0.0-0.7) Basophils # (Auto) 0.0 x10^3/uL (0.0-0.2) Segmented Neutrophils % 80 % (35-66) Band Neutrophils % 9 % (0-9) Lymphocytes % 9 % (24-48) Monocytes % 2 % (0-10) Nucleated Red Blood Cells 1 Platelet Estimate Decreased (ADEQUATE) Anisocytosis Mod Sodium Level 148 mmol/L (136-145) Potassium Level 3.7 mmol/L (3.5-5.1) Chloride Level 113 mmol/L (98-107) Carbon Dioxide Level 21 mmol/L (21-32) Anion Gap 14 (6-14) Blood Urea Nitrogen 60 mg/dL (8-26) Creatinine 1.3 mg/dL (0.7-1.3) Estimated GFR (Cockcroft-Gault) 60.0 BUN/Creatinine Ratio 46 (6-20) Glucose Level 171 mg/dL (70-99) Calcium Level 7.8 mg/dL (8.5-10.1) Total Bilirubin 12.5 mg/dL (0.2-1.0) Aspartate Amino Transf (AST/SGOT) 309 U/L (15-37) Alanine Aminotransferase (ALT/SGPT) 154 U/L (16-63) Alkaline Phosphatase 94 U/L (46-116) Total Protein 5.2 g/dL (6.4-8.2) Albumin 2.2 g/dL (3.4-5.0) Albumin/Globulin Ratio 0.7 (1.0-1.7) Thyroid Stimulating Hormone (TSH) 0.052 uIU/mL (0.358-3.74) Ammonia 28 mcmol/L (11-34) Test 01/08/19 03:55 01/08/19 08:00 White Blood Count 8.7 x10^3/uL (4.0-11.0) Red Blood Count 2.42 x10^6/uL (4.30-5.70) Hemoglobin 8.7 g/dL (13.0-17.5) Hematocrit 25.0 % (39.0-53.0) Mean Corpuscular Volume 104 fL (79-100) Mean Corpuscular Hemoglobin 36 pg (25-35) Mean Corpuscular Hemoglobin Concent 35 g/dL (31-37) Red Cell Distribution Width 23.1 % (11.5-14.5) Platelet Count 113 x10^3/uL (140-400) Neutrophils (%) (Auto) 82 % (31-73) Lymphocytes (%) (Auto) 9 % (24-48) Monocytes (%) (Auto) 8 % (0-9) Eosinophils (%) (Auto) 0 % (0-3) Basophils (%) (Auto) 1 % (0-3) Neutrophils # (Auto) 7.1 x10^3/uL (1.8-7.7) Lymphocytes # (Auto) 0.8 x10^3/uL (1.0-4.8) Monocytes # (Auto) 0.7 x10^3/uL (0.0-1.1) Eosinophils # (Auto) 0.0 x10^3/uL (0.0-0.7) Basophils # (Auto) 0.1 x10^3/uL (0.0-0.2) Prothrombin Time 23.8 SEC (11.7-14.0) Prothromb Time International Ratio 2.2 (0.8-1.1) Sodium Level 160 mmol/L (136-145) Potassium Level 3.0 mmol/L (3.5-5.1) Chloride Level 122 mmol/L (98-107) Carbon Dioxide Level 27 mmol/L (21-32) Anion Gap 11 (6-14) Blood Urea Nitrogen 29 mg/dL (8-26) Creatinine 0.9 mg/dL (0.7-1.3) Estimated GFR (Cockcroft-Gault) 91.7 BUN/Creatinine Ratio 32 (6-20) Glucose Level 146 mg/dL (70-99) Calcium Level 8.1 mg/dL (8.5-10.1) Total Bilirubin 15.2 mg/dL (0.2-1.0) Aspartate Amino Transf (AST/SGOT) 294 U/L (15-37) Alanine Aminotransferase (ALT/SGPT) 176 U/L (16-63) Alkaline Phosphatase 103 U/L (46-116) Ammonia 20 mcmol/L (11-34) Total Protein 6.0 g/dL (6.4-8.2) Albumin 2.5 g/dL (3.4-5.0) Albumin/Globulin Ratio 0.7 (1.0-1.7) O2 Saturation 93 % (92-99) Arterial Blood pH 7.49 (7.35-7.45) Arterial Blood pCO2 at Patient Temp 31 mmHg (35-46) Arterial Blood pO2 at Patient Temp 70 mmHg (75-108) Arterial Blood HCO3 23 mmol/L (21-28) Arterial Blood Base Excess 0 mmol/L (-3-3) FiO2 50 Laboratory Tests Test 01/07/19 18:55 01/08/19 03:55 01/08/19 08:00 Prothrombin Time 23.9 SEC (11.7-14.0) 23.8 SEC (11.7-14.0) Prothromb Time International Ratio 2.2 (0.8-1.1) 2.2 (0.8-1.1) Ammonia 28 mcmol/L (11-34) 20 mcmol/L (11-34) White Blood Count 8.7 x10^3/uL (4.0-11.0) Red Blood Count 2.42 x10^6/uL (4.30-5.70) Hemoglobin 8.7 g/dL (13.0-17.5) Hematocrit 25.0 % (39.0-53.0) Mean Corpuscular Volume 104 fL (79-100) Mean Corpuscular Hemoglobin 36 pg (25-35) Mean Corpuscular Hemoglobin Concent 35 g/dL (31-37) Red Cell Distribution Width 23.1 % (11.5-14.5) Platelet Count 113 x10^3/uL (140-400) Neutrophils (%) (Auto) 82 % (31-73) Lymphocytes (%) (Auto) 9 % (24-48) Monocytes (%) (Auto) 8 % (0-9) Eosinophils (%) (Auto) 0 % (0-3) Basophils (%) (Auto) 1 % (0-3) Neutrophils # (Auto) 7.1 x10^3/uL (1.8-7.7) Lymphocytes # (Auto) 0.8 x10^3/uL (1.0-4.8) Monocytes # (Auto) 0.7 x10^3/uL (0.0-1.1) Eosinophils # (Auto) 0.0 x10^3/uL (0.0-0.7) Basophils # (Auto) 0.1 x10^3/uL (0.0-0.2) Sodium Level 160 mmol/L (136-145) Potassium Level 3.0 mmol/L (3.5-5.1) Chloride Level 122 mmol/L (98-107) Carbon Dioxide Level 27 mmol/L (21-32) Anion Gap 11 (6-14) Blood Urea Nitrogen 29 mg/dL (8-26) Creatinine 0.9 mg/dL (0.7-1.3) Estimated GFR (Cockcroft-Gault) 91.7 BUN/Creatinine Ratio 32 (6-20) Glucose Level 146 mg/dL (70-99) Calcium Level 8.1 mg/dL (8.5-10.1) Total Bilirubin 15.2 mg/dL (0.2-1.0) Aspartate Amino Transf (AST/SGOT) 294 U/L (15-37) Alanine Aminotransferase (ALT/SGPT) 176 U/L (16-63) Alkaline Phosphatase 103 U/L (46-116) Total Protein 6.0 g/dL (6.4-8.2) Albumin 2.5 g/dL (3.4-5.0) Albumin/Globulin Ratio 0.7 (1.0-1.7) O2 Saturation 93 % (92-99) Arterial Blood pH 7.49 (7.35-7.45) Arterial Blood pCO2 at Patient Temp 31 mmHg (35-46) Arterial Blood pO2 at Patient Temp 70 mmHg (75-108) Arterial Blood HCO3 23 mmol/L (21-28) Arterial Blood Base Excess 0 mmol/L (-3-3) FiO2 50 Medications Active Scripts Medications Dose Route/Sig Max Daily Dose Days Date Category Omeprazole 40 Mg Capsule.dr 1 Cap PO DAILY 01/04/19 Reported Impression . 1. Acute hypoxic respiratory failure secondary to multifactorial etiologies including acute hepatic encephalopathy, sepsis, suspected acute lung injury, risk for aspiration, and acute on chronic hepatic failure. 2. Acute alcoholic hepatic encephalopathy. 3. Acute on chronic liver failure with progressively increasing bilirubin and transaminases. GI is following. 4. Marked lactic acidosis. Likely sepsis, but could be related to type B lactic acidosis from liver failure. 5. Coagulopathy secondary to liver failure. 6. Marked metabolic acidosis on ABGs related to lactic acidosis and hepatic failure. 7. hypernatremia Plan . 1. Discussed with and RN. We will continue with present BIPAP 2. prn ABGs and make necessary adjustments. 3. Correction of metabolic acidosis. no further bicarbonate. 4. Continue broad-spectrum antibiotics. 5. Follow GI recommendation. 6. The patient is currently on octreotide drip. 7. DuoNeb. 8. Alcohol withdrawal precautions. 9. Prognosis is extremely grim. There is also concern for hepatic or colonic malignancy. Would recommend DNR status. We will follow along with you. palliative meeting today 10.Monitor Na, try free water DIVYA VASQUEZ MD Jan 08, 2019 11:09
[2019-01-08] MEDS ORDERED: POTASSIUM BICARB 20 MEQ EFFERVESCENT TABLET. PEG ONE ×2 (11:30→16:00)
--- NOTE | 2019-01-08 12:11 | PDOC ---
G I PROGRESS NOTE Subjective Patient remains obtunded. Objective watery,melanotic stool in rectal tube/nil in NG. Physical Exam Lungs clear anteriorly. RRR, tachy Abdomen soft,, not distended. Review of Relevant I have reviewed the following items pierre (where applicable) has been applied. Labs Laboratory Tests Test 01/06/19 17:15 01/07/19 04:20 01/07/19 09:03 01/07/19 18:55 White Blood Count 15.2 x10^3/uL (4.0-11.0) 16.0 x10^3/uL (4.0-11.0) Red Blood Count 2.40 x10^6/uL (4.30-5.70) 2.15 x10^6/uL (4.30-5.70) Hemoglobin 8.3 g/dL (13.0-17.5) 7.5 g/dL (13.0-17.5) Hematocrit 24.5 % (39.0-53.0) 21.8 % (39.0-53.0) Mean Corpuscular Volume 102 fL (79-100) 101 fL (79-100) Mean Corpuscular Hemoglobin 35 pg (25-35) 35 pg (25-35) Mean Corpuscular Hemoglobin Concent 34 g/dL (31-37) 34 g/dL (31-37) Red Cell Distribution Width 21.0 % (11.5-14.5) 21.8 % (11.5-14.5) Platelet Count 110 x10^3/uL (140-400) 121 x10^3/uL (140-400) Haptoglobin 12 mg/dL (34-200) Prothrombin Time 26.4 SEC (11.7-14.0) 27.6 SEC (11.7-14.0) 23.9 SEC (11.7-14.0) Prothromb Time International Ratio 2.5 (0.8-1.1) 2.6 (0.8-1.1) 2.2 (0.8-1.1) Lactic Acid Level 11.3 mmol/L (0.4-2.0) Tumor Marker Alpha Fetoprotein 4.1 ng/mL (0.0-8.3) Neutrophils (%) (Auto) 80 % (31-73) Lymphocytes (%) (Auto) 11 % (24-48) Monocytes (%) (Auto) 9 % (0-9) Eosinophils (%) (Auto) 0 % (0-3) Basophils (%) (Auto) 0 % (0-3) Neutrophils # (Auto) 12.8 x10^3/uL (1.8-7.7) Lymphocytes # (Auto) 1.8 x10^3/uL (1.0-4.8) Monocytes # (Auto) 1.4 x10^3/uL (0.0-1.1) Eosinophils # (Auto) 0.0 x10^3/uL (0.0-0.7) Basophils # (Auto) 0.0 x10^3/uL (0.0-0.2) Segmented Neutrophils % 80 % (35-66) Band Neutrophils % 9 % (0-9) Lymphocytes % 9 % (24-48) Monocytes % 2 % (0-10) Nucleated Red Blood Cells 1 Platelet Estimate Decreased (ADEQUATE) Anisocytosis Mod Sodium Level 148 mmol/L (136-145) Potassium Level 3.7 mmol/L (3.5-5.1) Chloride Level 113 mmol/L (98-107) Carbon Dioxide Level 21 mmol/L (21-32) Anion Gap 14 (6-14) Blood Urea Nitrogen 60 mg/dL (8-26) Creatinine 1.3 mg/dL (0.7-1.3) Estimated GFR (Cockcroft-Gault) 60.0 BUN/Creatinine Ratio 46 (6-20) Glucose Level 171 mg/dL (70-99) Calcium Level 7.8 mg/dL (8.5-10.1) Total Bilirubin 12.5 mg/dL (0.2-1.0) Aspartate Amino Transf (AST/SGOT) 309 U/L (15-37) Alanine Aminotransferase (ALT/SGPT) 154 U/L (16-63) Alkaline Phosphatase 94 U/L (46-116) Total Protein 5.2 g/dL (6.4-8.2) Albumin 2.2 g/dL (3.4-5.0) Albumin/Globulin Ratio 0.7 (1.0-1.7) Thyroid Stimulating Hormone (TSH) 0.052 uIU/mL (0.358-3.74) Ammonia 28 mcmol/L (11-34) Test 01/08/19 03:55 01/08/19 08:00 White Blood Count 8.7 x10^3/uL (4.0-11.0) Red Blood Count 2.42 x10^6/uL (4.30-5.70) Hemoglobin 8.7 g/dL (13.0-17.5) Hematocrit 25.0 % (39.0-53.0) Mean Corpuscular Volume 104 fL (79-100) Mean Corpuscular Hemoglobin 36 pg (25-35) Mean Corpuscular Hemoglobin Concent 35 g/dL (31-37) Red Cell Distribution Width 23.1 % (11.5-14.5) Platelet Count 113 x10^3/uL (140-400) Neutrophils (%) (Auto) 82 % (31-73) Lymphocytes (%) (Auto) 9 % (24-48) Monocytes (%) (Auto) 8 % (0-9) Eosinophils (%) (Auto) 0 % (0-3) Basophils (%) (Auto) 1 % (0-3) Neutrophils # (Auto) 7.1 x10^3/uL (1.8-7.7) Lymphocytes # (Auto) 0.8 x10^3/uL (1.0-4.8) Monocytes # (Auto) 0.7 x10^3/uL (0.0-1.1) Eosinophils # (Auto) 0.0 x10^3/uL (0.0-0.7) Basophils # (Auto) 0.1 x10^3/uL (0.0-0.2) Prothrombin Time 23.8 SEC (11.7-14.0) Prothromb Time International Ratio 2.2 (0.8-1.1) Sodium Level 160 mmol/L (136-145) Potassium Level 3.0 mmol/L (3.5-5.1) Chloride Level 122 mmol/L (98-107) Carbon Dioxide Level 27 mmol/L (21-32) Anion Gap 11 (6-14) Blood Urea Nitrogen 29 mg/dL (8-26) Creatinine 0.9 mg/dL (0.7-1.3) Estimated GFR (Cockcroft-Gault) 91.7 BUN/Creatinine Ratio 32 (6-20) Glucose Level 146 mg/dL (70-99) Calcium Level 8.1 mg/dL (8.5-10.1) Total Bilirubin 15.2 mg/dL (0.2-1.0) Aspartate Amino Transf (AST/SGOT) 294 U/L (15-37) Alanine Aminotransferase (ALT/SGPT) 176 U/L (16-63) Alkaline Phosphatase 103 U/L (46-116) Ammonia 20 mcmol/L (11-34) Total Protein 6.0 g/dL (6.4-8.2) Albumin 2.5 g/dL (3.4-5.0) Albumin/Globulin Ratio 0.7 (1.0-1.7) O2 Saturation 93 % (92-99) Arterial Blood pH 7.49 (7.35-7.45) Arterial Blood pCO2 at Patient Temp 31 mmHg (35-46) Arterial Blood pO2 at Patient Temp 70 mmHg (75-108) Arterial Blood HCO3 23 mmol/L (21-28) Arterial Blood Base Excess 0 mmol/L (-3-3) FiO2 50 Laboratory Tests Test 01/07/19 18:55 01/08/19 03:55 01/08/19 08:00 Prothrombin Time 23.9 SEC (11.7-14.0) 23.8 SEC (11.7-14.0) Prothromb Time International Ratio 2.2 (0.8-1.1) 2.2 (0.8-1.1) Ammonia 28 mcmol/L (11-34) 20 mcmol/L (11-34) White Blood Count 8.7 x10^3/uL (4.0-11.0) Red Blood Count 2.42 x10^6/uL (4.30-5.70) Hemoglobin 8.7 g/dL (13.0-17.5) Hematocrit 25.0 % (39.0-53.0) Mean Corpuscular Volume 104 fL (79-100) Mean Corpuscular Hemoglobin 36 pg (25-35) Mean Corpuscular Hemoglobin Concent 35 g/dL (31-37) Red Cell Distribution Width 23.1 % (11.5-14.5) Platelet Count 113 x10^3/uL (140-400) Neutrophils (%) (Auto) 82 % (31-73) Lymphocytes (%) (Auto) 9 % (24-48) Monocytes (%) (Auto) 8 % (0-9) Eosinophils (%) (Auto) 0 % (0-3) Basophils (%) (Auto) 1 % (0-3) Neutrophils # (Auto) 7.1 x10^3/uL (1.8-7.7) Lymphocytes # (Auto) 0.8 x10^3/uL (1.0-4.8) Monocytes # (Auto) 0.7 x10^3/uL (0.0-1.1) Eosinophils # (Auto) 0.0 x10^3/uL (0.0-0.7) Basophils # (Auto) 0.1 x10^3/uL (0.0-0.2) Sodium Level 160 mmol/L (136-145) Potassium Level 3.0 mmol/L (3.5-5.1) Chloride Level 122 mmol/L (98-107) Carbon Dioxide Level 27 mmol/L (21-32) Anion Gap 11 (6-14) Blood Urea Nitrogen 29 mg/dL (8-26) Creatinine 0.9 mg/dL (0.7-1.3) Estimated GFR (Cockcroft-Gault) 91.7 BUN/Creatinine Ratio 32 (6-20) Glucose Level 146 mg/dL (70-99) Calcium Level 8.1 mg/dL (8.5-10.1) Total Bilirubin 15.2 mg/dL (0.2-1.0) Aspartate Amino Transf (AST/SGOT) 294 U/L (15-37) Alanine Aminotransferase (ALT/SGPT) 176 U/L (16-63) Alkaline Phosphatase 103 U/L (46-116) Total Protein 6.0 g/dL (6.4-8.2) Albumin 2.5 g/dL (3.4-5.0) Albumin/Globulin Ratio 0.7 (1.0-1.7) O2 Saturation 93 % (92-99) Arterial Blood pH 7.49 (7.35-7.45) Arterial Blood pCO2 at Patient Temp 31 mmHg (35-46) Arterial Blood pO2 at Patient Temp 70 mmHg (75-108) Arterial Blood HCO3 23 mmol/L (21-28) Arterial Blood Base Excess 0 mmol/L (-3-3) FiO2 50 Microbiology 7/14/19 Blood Culture - Preliminary, Resulted NO GROWTH AFTER 1 DAY 01/04/19 Urine Culture - Final, Complete 01/04/19 Urine Culture Result 1 (DONALD) - Final, Complete Hemoglobin stable. Hypernatremic INR stable Haptoglobin low AFP normal LFT's, bili worse. Vitals/I & O Vital Sign - Last 24 Hours 01/07/19 01/07/19 01/07/19 01/07/19 13:00 13:16 13:56 14:03 Temp 98.2 98.2 98.2 98.2 98.2 98.2 Pulse 106 105 105 105 Resp 20 20 20 18 B/P (MAP) 107/72 (84) 107/72 110/72 (85) 107/72 Pulse Ox 94 91 O2 Delivery Venturi Mask Venturi Mask 01/07/19 01/07/19 01/07/19 01/07/19 14:20 15:00 16:00 16:00 Temp 98.2 98.2 98.2 98.2 Pulse 102 102 100 Resp 22 20 20 B/P (MAP) 126/70 112/74 (87) 129/77 (94) Pulse Ox 89 89 O2 Delivery Venturi Mask Venturi Mask Venturi Mask O2 Flow Rate 15.0 15.0 15.0 01/07/19 01/07/19 01/07/19 01/07/19 16:20 16:40 17:00 18:00 Temp 98.2 98.2 Pulse 102 102 Resp 20 20 B/P (MAP) 142/81 (101) 148/86 (106) Pulse Ox 89 94 97 100 O2 Delivery Venturi Mask BiPAP/CPAP BiPAP/CPAP BiPAP/CPAP O2 Flow Rate 15.0 01/07/19 01/07/19 01/07/19 01/07/19 19:00 20:00 20:00 20:00 Temp 98.3 98.3 Pulse 102 101 Resp 18 18 B/P (MAP) 141/86 (104) 143/85 (104) Pulse Ox 100 100 O2 Delivery BiPAP/CPAP Bi-pap BiPAP/CPAP O2 Flow Rate 15.0 01/07/19 01/07/19 01/07/19 01/07/19 20:01 21:00 22:00 22:20 Pulse 102 106 Resp 18 20 B/P (MAP) 148/88 (108) 151/96 (114) Pulse Ox 99 100 100 99 O2 Delivery BiPAP/CPAP BiPAP/CPAP BiPAP/CPAP BiPAP/CPAP 01/07/19 01/07/19 01/08/19 01/08/19 23:00 23:59 00:00 00:01 Temp 98.7 98.7 Pulse 106 106 Resp 20 20 B/P (MAP) 139/81 (100) 145/79 (101) Pulse Ox 100 100 O2 Delivery BiPAP/CPAP Bi-pap BiPAP/CPAP O2 Flow Rate 15.0 01/08/19 01/08/19 01/08/19 01/08/19 00:15 01:00 02:00 03:00 Pulse 107 111 111 Resp 20 20 20 B/P (MAP) 155/84 (107) 152/82 (105) 152/82 (105) Pulse Ox 99 100 100 100 O2 Delivery BiPAP/CPAP BiPAP/CPAP BiPAP/CPAP BiPAP/CPAP 01/08/19 01/08/19 01/08/19 01/08/19 03:40 04:00 04:00 04:00 Temp 99.0 99.0 Pulse 111 Resp 20 B/P (MAP) 150/81 (104) Pulse Ox 99 100 O2 Delivery BiPAP/CPAP BiPAP/CPAP Bi-pap O2 Flow Rate 15.0 01/08/19 01/08/19 01/08/19 01/08/19 05:00 05:50 06:00 07:00 Temp 100.5 100.5 Pulse 112 116 120 Resp 20 23 22 B/P (MAP) 157/89 (111) 164/93 (116) 170/97 (121) Pulse Ox 100 99 100 100 O2 Delivery BiPAP/CPAP BiPAP/CPAP BiPAP/CPAP 01/08/19 01/08/19 01/08/19 01/08/19 07:18 07:54 08:00 08:03 Pulse 120 113 Resp 23 B/P (MAP) 170/97 103/69 (80) Pulse Ox 100 O2 Delivery Bi-pap BiPAP/CPAP O2 Flow Rate 15.0 01/08/19 01/08/19/01/08/19 08:28 09:00 10:00 11:01 Temp 99.0 99.0 Pulse 113 113 112 Resp 23 20 20 B/P (MAP) 140/74 (96) 138/75 (96) 132/76 (94) Pulse Ox 98 100 97 100 O2 Delivery BiPAP/CPAP BiPAP/CPAP BiPAP/CPAP BiPAP/CPAP Intake and Output 01/07/19 01/07/19 01/08/19 15:00 23:00 07:00 Intake Total 672 ml 1385 ml 698 ml Output Total 1165 ml 2430 ml 765 ml Balance -493 ml -1045 ml -67 ml Problem List Problems Medical Problems: (1) Alcoholic liver disease Status: Acute (2) Cholelithiasis Status: Acute (3) Colitis Status: Acute (4) Jaundice Status: Acute (5) Pancreatitis Status: Acute (6) Thrombocytopenia Status: Acute Assessment Alcoholic hepatitis, ongoing. Hemoglobin stable w/o signs active bleeding. Element of hemolysis earlier? From DIC? Encephalopathy. Ammonia now normal and still out--withdrawal? Liver lesion? AFP normal, so not HCC? Plan of Care Note Continue support. Discussed with family; no specific treatment for alcoholic hepatitis that affects long-term survival. Abstinence and time. Will stop octreotide; likely past effective time period. Continue PPI. If survives, further w/u of liver lesion. CONRAD GUTIERREZ MD Jan 08, 2019 12:11
--- NOTE | 2019-01-08 13:50 | PDOC2 ---
PALLIATIVE CARE Palliative Care Note Palliative Care Consult requested by Dr. Cervantes to address plan of care. Medical Assessment per medical record; (1) Alcoholic liver disease (2) Cholelithiasis (3) Colitis (4) Jaundice (5) Pancreatitis (6) Thrombocytopenia Code Status: DNR/DNI per discussion with family by Dr. Cervantes this am. Spoke with . She is aware of the medical condition. Will continue current treatment plan for now and address any changes/decline. LOREE CYR Jan 08, 2019 13:50
--- NOTE | 2019-01-08 17:27 | PDOC ---
PROGRESS NOTES Subjective Subjective HPI - f/u of Thrombocytopenia ROS - no fever Objective Objective Vital Signs Date Time Temp Pulse Resp B/P (MAP) Pulse Ox O2 Delivery O2 Flow Rate FiO2 01/08/19 16:12 Bi-pap 01/08/19 16:00 99.2 104 20 102/60 (74) 99 99.2 01/08/19 08:00 15.0 Intake and Output 01/08/19 06:59 Intake Total 2845 ml Output Total 4325 ml Balance -1480 ml IV Total 2203 ml Blood Product 522 ml Blood Product IV Normal Saline Flush 120 ml Output Urine Total 3375 ml Stool Total 800 ml Gastric Drainage Total 150 ml # Bowel Movements 1 Physical Exam Heart: Normal S1, Normal S2 General: No acute distress Assessment Assessment Problems Medical Problems: (1) Alcoholic liver disease Status: Acute (2) Cholelithiasis Status: Acute (3) Colitis Status: Acute (4) Jaundice Status: Acute (5) Pancreatitis Status: Acute (6) Thrombocytopenia Status: Acute Imp/Plan: 1. Thrombocytopenia. Secondary to liver dysfunction. Improved a little from admission. Plt 113 2. Coagulopathy from liver failure. Given vit k 3. ?hepatic mass. If he improves would eventually get an MRI to further evaluate, but if not would not pursue 4. Liver failure. Most likely secondary to etoh 5. Colitis. On abx as per primary team 6. Anemia, Hb 8.7. monitor cbc. Comment Review of Relevant I have reviewed the following items pierre (where applicable) has been applied. Labs Laboratory Tests Test 01/07/19 04:20 01/07/19 09:03 01/07/19 18:55 01/08/19 03:55 White Blood Count 16.0 x10^3/uL (4.0-11.0) 8.7 x10^3/uL (4.0-11.0) Red Blood Count 2.15 x10^6/uL (4.30-5.70) 2.42 x10^6/uL (4.30-5.70) Hemoglobin 7.5 g/dL (13.0-17.5) 8.7 g/dL (13.0-17.5) Hematocrit 21.8 % (39.0-53.0) 25.0 % (39.0-53.0) Mean Corpuscular Volume 101 fL (79-100) 104 fL (79-100) Mean Corpuscular Hemoglobin 35 pg (25-35) 36 pg (25-35) Mean Corpuscular Hemoglobin Concent 34 g/dL (31-37) 35 g/dL (31-37) Red Cell Distribution Width 21.8 % (11.5-14.5) 23.1 % (11.5-14.5) Platelet Count 121 x10^3/uL (140-400) 113 x10^3/uL (140-400) Neutrophils (%) (Auto) 80 % (31-73) 82 % (31-73) Lymphocytes (%) (Auto) 11 % (24-48) 9 % (24-48) Monocytes (%) (Auto) 9 % (0-9) 8 % (0-9) Eosinophils (%) (Auto) 0 % (0-3) 0 % (0-3) Basophils (%) (Auto) 0 % (0-3) 1 % (0-3) Neutrophils # (Auto) 12.8 x10^3/uL (1.8-7.7) 7.1 x10^3/uL (1.8-7.7) Lymphocytes # (Auto) 1.8 x10^3/uL (1.0-4.8) 0.8 x10^3/uL (1.0-4.8) Monocytes # (Auto) 1.4 x10^3/uL (0.0-1.1) 0.7 x10^3/uL (0.0-1.1) Eosinophils # (Auto) 0.0 x10^3/uL (0.0-0.7) 0.0 x10^3/uL (0.0-0.7) Basophils # (Auto) 0.0 x10^3/uL (0.0-0.2) 0.1 x10^3/uL (0.0-0.2) Segmented Neutrophils % 80 % (35-66) Band Neutrophils % 9 % (0-9) Lymphocytes % 9 % (24-48) Monocytes % 2 % (0-10) Nucleated Red Blood Cells 1 Platelet Estimate Decreased (ADEQUATE) Anisocytosis Mod Sodium Level 148 mmol/L (136-145) 160 mmol/L (136-145) Potassium Level 3.7 mmol/L (3.5-5.1) 3.0 mmol/L (3.5-5.1) Chloride Level 113 mmol/L (98-107) 122 mmol/L (98-107) Carbon Dioxide Level 21 mmol/L (21-32) 27 mmol/L (21-32) Anion Gap 14 (6-14) 11 (6-14) Blood Urea Nitrogen 60 mg/dL (8-26) 29 mg/dL (8-26) Creatinine 1.3 mg/dL (0.7-1.3) 0.9 mg/dL (0.7-1.3) Estimated GFR (Cockcroft-Gault) 60.0 91.7 BUN/Creatinine Ratio 46 (6-20) 32 (6-20) Glucose Level 171 mg/dL (70-99) 146 mg/dL (70-99) Calcium Level 7.8 mg/dL (8.5-10.1) 8.1 mg/dL (8.5-10.1) Total Bilirubin 12.5 mg/dL (0.2-1.0) 15.2 mg/dL (0.2-1.0) Aspartate Amino Transf (AST/SGOT) 309 U/L (15-37) 294 U/L (15-37) Alanine Aminotransferase (ALT/SGPT) 154 U/L (16-63) 176 U/L (16-63) Alkaline Phosphatase 94 U/L (46-116) 103 U/L (46-116) Total Protein 5.2 g/dL (6.4-8.2) 6.0 g/dL (6.4-8.2) Albumin 2.2 g/dL (3.4-5.0) 2.5 g/dL (3.4-5.0) Albumin/Globulin Ratio 0.7 (1.0-1.7) 0.7 (1.0-1.7) Prothrombin Time 27.6 SEC (11.7-14.0) 23.9 SEC (11.7-14.0) 23.8 SEC (11.7-14.0) Prothromb Time International Ratio 2.6 (0.8-1.1) 2.2 (0.8-1.1) 2.2 (0.8-1.1) Thyroid Stimulating Hormone (TSH) 0.052 uIU/mL (0.358-3.74) Ammonia 28 mcmol/L (11-34) 20 mcmol/L (11-34) Test 01/08/19 08:00 O2 Saturation 93 % (92-99) Arterial Blood pH 7.49 (7.35-7.45) Arterial Blood pCO2 at Patient Temp 31 mmHg (35-46) Arterial Blood pO2 at Patient Temp 70 mmHg (75-108) Arterial Blood HCO3 23 mmol/L (21-28) Arterial Blood Base Excess 0 mmol/L (-3-3) FiO2 50 Laboratory Tests Test 01/07/19 18:55 01/08/19 03:55 01/08/19 08:00 Prothrombin Time 23.9 SEC (11.7-14.0) 23.8 SEC (11.7-14.0) Prothromb Time International Ratio 2.2 (0.8-1.1) 2.2 (0.8-1.1) Ammonia 28 mcmol/L (11-34) 20 mcmol/L (11-34) White Blood Count 8.7 x10^3/uL (4.0-11.0) Red Blood Count 2.42 x10^6/uL (4.30-5.70) Hemoglobin 8.7 g/dL (13.0-17.5) Hematocrit 25.0 % (39.0-53.0) Mean Corpuscular Volume 104 fL (79-100) Mean Corpuscular Hemoglobin 36 pg (25-35) Mean Corpuscular Hemoglobin Concent 35 g/dL (31-37) Red Cell Distribution Width 23.1 % (11.5-14.5) Platelet Count 113 x10^3/uL (140-400) Neutrophils (%) (Auto) 82 % (31-73) Lymphocytes (%) (Auto) 9 % (24-48) Monocytes (%) (Auto) 8 % (0-9) Eosinophils (%) (Auto) 0 % (0-3) Basophils (%) (Auto) 1 % (0-3) Neutrophils # (Auto) 7.1 x10^3/uL (1.8-7.7) Lymphocytes # (Auto) 0.8 x10^3/uL (1.0-4.8) Monocytes # (Auto) 0.7 x10^3/uL (0.0-1.1) Eosinophils # (Auto) 0.0 x10^3/uL (0.0-0.7) Basophils # (Auto) 0.1 x10^3/uL (0.0-0.2) Sodium Level 160 mmol/L (136-145) Potassium Level 3.0 mmol/L (3.5-5.1) Chloride Level 122 mmol/L (98-107) Carbon Dioxide Level 27 mmol/L (21-32) Anion Gap 11 (6-14) Blood Urea Nitrogen 29 mg/dL (8-26) Creatinine 0.9 mg/dL (0.7-1.3) Estimated GFR (Cockcroft-Gault) 91.7 BUN/Creatinine Ratio 32 (6-20) Glucose Level 146 mg/dL (70-99) Calcium Level 8.1 mg/dL (8.5-10.1) Total Bilirubin 15.2 mg/dL (0.2-1.0) Aspartate Amino Transf (AST/SGOT) 294 U/L (15-37) Alanine Aminotransferase (ALT/SGPT) 176 U/L (16-63) Alkaline Phosphatase 103 U/L (46-116) Total Protein 6.0 g/dL (6.4-8.2) Albumin 2.5 g/dL (3.4-5.0) Albumin/Globulin Ratio 0.7 (1.0-1.7) O2 Saturation 93 % (92-99) Arterial Blood pH 7.49 (7.35-7.45) Arterial Blood pCO2 at Patient Temp 31 mmHg (35-46) Arterial Blood pO2 at Patient Temp 70 mmHg (75-108) Arterial Blood HCO3 23 mmol/L (21-28) Arterial Blood Base Excess 0 mmol/L (-3-3) FiO2 50 Microbiology 01/06/19 Blood Culture - Preliminary, Resulted NO GROWTH AFTER 2 DAYS 01/04/19 Urine Culture - Final, Complete 01/04/19 Urine Culture Result 1 (DONALD) - Final, Complete Medications Current Medications Iohexol (Omnipaque 240 Mg/ml) 30 ml 1X ONCE PO Last administered on 01/04/19at 15:15; Start 01/04/19 at 15:15; Stop 01/04/19 at 15:17; Status DC Iohexol (Omnipaque 300 Mg/ml) 75 ml 1X ONCE IV Last administered on 01/04/19at 16:20; Start 01/04/19 at 15:15; Stop 01/04/19 at 15:17; Status DC Info (CONTRAST GIVEN -- Rx MONITORING) 1 each PRN DAILY PRN MC SEE COMMENTS; Start 01/04/19 at 15:30; Stop 01/06/19 at 15:29; Status DC Multivitamins 10 ml/Thiamine HCl 100 mg/Folic Acid 1 mg/Sodium Chloride 1,011.2 ml @ 100 mls/ hr DAILY IV Last administered on 01/08/19at 08:12; Start 01/04/19 at 18:00; Stop 01/08/19 at 19:07 Chlordiazepoxide (Librium) 50 mg PRN Q1HR PRN PO For CIWA 8-14 Last administered on 01/04/19at 18:17; Start 01/04/19 at 17:45 Chlordiazepoxide (Librium) 100 mg PRN Q1HR PRN PO For CIWA 15 or greater Last administered on 01/05/19at 06:27; Start 01/04/19 at 17:45 Lorazepam (Ativan) 4 mg PRN Q1HR PRN PO For CIWA 8-14 Last administered on 01/04/19at 18:17; Start 01/04/19 at 17:45 Lorazepam (Ativan) 8 mg PRN Q1HR PRN PO For CIWA 15 or greater; Start 01/04/19 at 17:45 Haloperidol Lactate (Haldol Inj) 5 mg PRN Q4HRS PRN IVP Hallucinatns,Confusn,Delirium; Start 01/04/19 at 17:45 Diphenhydramine HCl (Benadryl) 25 mg PRN Q15MIN PRN IVP EPS symptoms 2'Haldol admin; Start 01/04/19 at 17:45 Clonidine HCl (Catapres) 0.1 mg PRN Q1HR PRN PO SBP > 180 or DBP > 100, MRX3 Last administered on 01/08/19at 07:18; Start 01/04/19 at 17:45; Stop 01/08/19 at 08:58; Status DC Lorazepam (Ativan Inj) 2 mg PRN Q1HR PRN IV For CIWA 8-14 Last administered on 01/04/19at 21:08; Start 01/04/19 at 19:15 Lorazepam (Ativan Inj) 4 mg PRN Q1HR PRN IV For CIWA 15 or greater Last administered on 01/05/19at 06:28; Start 01/04/19 at 19:15 Lorazepam (Ativan Inj) 2 mg PRN Q15MIN PRN IV SEE COMMENTS; Start 01/04/19 at 19:15; Status UNV Lorazepam (Ativan Inj) 4 mg PRN Q15MIN PRN IV SEE COMMENTS; Start 01/04/19 at 19:15; Status UNV Ondansetron HCl (Zofran) 4 mg PRN Q6HRS PRN IV NAUSEA/VOMITING Last administered on 01/04/19at 19:34; Start 01/04/19 at 19:30 Pantoprazole Sodium (PROTONIX VIAL for IV PUSH) 40 mg DAILYAC IVP Last administered on 01/06/19at 10:36; Start 01/06/19 at 10:00; Stop 01/06/19 at 12:17; Status DC Phytonadione (Vitamin K Ampule) 10 mg 1X ONCE SQ Last administered on 01/06/19at 10:36; Start 01/06/19 at 10:15; Stop 01/06/19 at 10:16; Status DC Piperacillin Sod/ Tazobactam Sod (Zosyn Per Pharmacy) 1 each PRN DAILY PRN MC SEE COMMENTS; Start 01/06/19 at 10:30 Piperacillin Sod/ Tazobactam Sod 3.375 gm/Sodium Chloride 50 ml @ 100 mls/hr Q6HRS IV Last administered on 01/08/19at 17:12; Start 01/06/19 at 11:00 Lactulose (Lactulose) 30 gm Q6HRS NG Last administered on 01/08/19at 17:11; Start 01/06/19 at 12:00 Metronidazole 100 ml @ 100 mls/hr Q8HRS IV Last administered on 01/08/19at 13:23; Start 01/06/19 at 14:00 Pantoprazole Sodium 80 mg/ Sodium Chloride 100 ml @ 10 mls/hr Q10H IV Last administered on 01/08/19at 17:11; Start 01/06/19 at 12:30 Octreotide Acetate 500 mcg/ Sodium Chloride 101 ml @ 0 mls/hr CONT PRN IV SEE I/O RECORD Last administered on 01/08/19at 06:08; Start 01/06/19 at 12:15; Stop 01/08/19 at 10:48; Status DC Norepinephrine Bitartrate 250 ml @ 14.235 mls/ hr CONT PRN IV SEE I/O RECORD; Start 01/06/19 at 20:15 Albumin Human 100 ml @ 100 mls/hr 1X ONCE IV Last administered on 01/06/19at 21:30; Start 01/06/19 at 20:15; Stop 01/06/19 at 21:14; Status DC Phytonadione (Vitamin K Ampule) 10 mg 1X ONCE SQ Last administered on 01/07/19at 13:04; Start 01/07/19 at 11:45; Stop 01/07/19 at 11:46; Status DC Albuterol/ Ipratropium (Duoneb) 3 ml RTQID NEB Last administered on 01/08/19at 15:50; Start 01/07/19 at 16:00 Sodium Chloride 1,000 ml @ 75 mls/hr [id number] IV Last administered on 01/08/19at 06:09; Start 01/08/19 at 06:00 Labetalol HCl (Normodyne Iv Push) 10 mg PRN Q4HRS PRN IVP HYPERTENSION; Start 01/08/19 at 09:00 Potassium Bicarbonate (Potassium Effervescent Tablet) 40 meq 1X ONCE PEG Last administered on 01/08/19at 12:24; Start 01/08/19 at 11:30; Stop 01/08/19 at 11:33; Status DC Potassium Bicarbonate (Potassium Effervescent Tablet) 40 meq 1X ONCE PEG Last administered on 01/08/19at 16:06; Start 01/08/19 at 16:00; Stop 01/08/19 at 16:01; Status DC Active Scripts Active Reported Omeprazole 40 Mg Capsule. 1 Cap PO DAILY Vitals/I & O Vital Sign - Last 24 Hours 01/07/19 01/07/19 01/07/19 01/07/19 18:00 19:00 20:00 20:00 Temp 98.3 98.3 Pulse 102 102 101 Resp 20 18 18 B/P (MAP) 148/86 (106) 141/86 (104) 143/85 (104) Pulse Ox 100 100 100 O2 Delivery BiPAP/CPAP BiPAP/CPAP Bi-pap BiPAP/CPAP 01/07/19 01/07/19 01/07/19 01/07/19 20:00 20:01 21:00 22:00 Pulse 102 106 Resp 18 20 B/P (MAP) 148/88 (108) 151/96 (114) Pulse Ox 99 100 100 O2 Delivery BiPAP/CPAP BiPAP/CPAP BiPAP/CPAP O2 Flow Rate 15.0 01/07/19 01/07/19 01/07/19 01/08/19 22:20 23:00 23:59 00:00 Pulse 106 Resp 20 B/P (MAP) 139/81 (100) Pulse Ox 99 100 O2 Delivery BiPAP/CPAP BiPAP/CPAP Bi-pap O2 Flow Rate 15.0 01/08/19 01/08/19 01/08/19 01/08/19 00:01 00:15 01:00 02:00 Temp 98.7 98.7 Pulse 106 107 111 Resp 20 20 20 B/P (MAP) 145/79 (101) 155/84 (107) 152/82 (105) Pulse Ox 100 99 100 100 O2 Delivery BiPAP/CPAP BiPAP/CPAP BiPAP/CPAP BiPAP/CPAP 01/08/19 01/08/19 01/08/19 01/08/19 03:00 03:40 04:00 04:00 Temp 99.0 99.0 Pulse 111 111 Resp 20 20 B/P (MAP) 152/82 (105) 150/81 (104) Pulse Ox 100 99 100 O2 Delivery BiPAP/CPAP BiPAP/CPAP BiPAP/CPAP O2 Flow Rate 15.0 01/08/19 01/08/19 01/08/19 01/08/19 04:00 05:00 05:50 06:00 Pulse 112 116 Resp 20 23 B/P (MAP) 157/89 (111) 164/93 (116) Pulse Ox 100 99 100 O2 Delivery Bi-pap BiPAP/CPAP BiPAP/CPAP BiPAP/CPAP 01/08/19 01/08/19 01/08/19 01/08/19 07:00 07:18 07:54 08:00 Temp 100.5 100.5 Pulse 120 120 Resp 22 B/P (MAP) 170/97 (121) 170/97 Pulse Ox 100 O2 Delivery Bi-pap O2 Flow Rate 15.0 01/08/19 01/08/19 01/08/19 01/08/19 08:03 08:28 09:00 10:00 Temp 99.0 99.0 Pulse 113 113 113 Resp 23 23 20 B/P (MAP) 103/69 (80) 140/74 (96) 138/75 (96) Pulse Ox 100 98 100 97 O2 Delivery BiPAP/CPAP BiPAP/CPAP BiPAP/CPAP BiPAP/CPAP 01/08/19 01/08/19 01/08/19 01/08/19 11:01 12:00 12:00 12:20 Pulse 112 112 Resp 20 25 B/P (MAP) 132/76 (94) 138/73 (94) Pulse Ox 100 100 98 O2 Delivery BiPAP/CPAP Bi-pap BiPAP/CPAP BiPAP/CPAP 01/08/19 01/08/19 01/08/19 01/08/19 13:01 14:00 15:00 15:50 Pulse 112 108 109 Resp 20 20 B/P (MAP) 135/72 (93) 138/72 (94) 134/83 (100) Pulse Ox 100 100 100 98 O2 Delivery BiPAP/CPAP BiPAP/CPAP BiPAP/CPAP BiPAP/CPAP 01/08/19 01/08/19 16:00 16:12 Temp 99.2 99.2 Pulse 104 Resp 20 B/P (MAP) 102/60 (74) Pulse Ox 99 O2 Delivery BiPAP/CPAP Bi-pap Intake and Output 01/07/19 01/07/19 01/08/19 14:59 22:59 06:59 Intake Total 520 ml 1687 ml 638 ml Output Total 665 ml 2780 ml 880 ml Balance -145 ml -1093 ml -242 ml ISHAAN GIFFORD MD Jan 08, 2019 17:27
--- NOTE | 2019-01-08 18:25 | PDOC ---
PROGRESS NOTES Assessment Assessment Lethargy. Metabolic encephalopathy. Toxic encephalopathy. Respiratory failure. Alcohol intoxication. Lactic acidosis. Hepatic Injury. Elevated ammonia level. Thrombocytopenia. Coagulopathy, elevated PT/INR related to hepatic disease likely. Cirrhosis. Colitis. HTN. Substances abuse, alcohol. RECOMMENDATIONS/PLAN: EEG. Vit B1. Treat medical and hematologic diseases. ID on team. HCT w/o contrast on 01/07/19: negative without ICH. HISTORY OF THE PRESENT ILLNESS: This is a 43-year-old male with history of alcohol abuse went unresponsive status. According to his family, he has a history of drinking alcohol heavily in the last 22 years, averaging 30-60 beers a day. Over the last year, he has been depressed, shaky and not well-coordinated with falls. He could not work regularly. He tried to quit drinking a few times but but failed maintain abstinence. He had nosebleeds, blood in urine and skin and soft tissue bruises. He has been unresponsiveness since here. His daughter says he has lost about 50 pounds in a span of 3 month period last year. 01/08/19: No improvement. PAST MEDICAL HISTORY: Depression, hypertension, GERD, panic attacks. PAST SURGICAL HISTORY: No significant past surgical history. SOCIAL HISTORY: The patient is and lives at home. Used to work at a [employer] shop and [employer]. He migrated to the [place] from [place] about 19 years ago. He has 2 daughters. Heavy alcohol as mentioned above. FAMILY HISTORY: Noncontributory. ALLERGIES: No known drug allergies. REVIEW OF SYSTEMS: Refer to PMH and PSH. Otherwise, all other review of systems limited as the patient is unresponsiveness. PHYSICAL EXAMINATION: General appearance is in subacute distress. HEENT: Normocephalic and nontraumatic. Eyes, nose, ears, and throat are unremarkable. Neck is supple. No lymphadenopathy. No crepitus. Cardiovascular: S1, S2, regular rate and rhythm. Pulmonary: On .. Abdomen: Bowel sounds are positive. Extremities: Bruises in extremities. No restriction of range of motion NEUROLOGICAL EXAMINATION: Unresponsiveness. Not oriented to time, place and person. PERRL. EOMI not elicited. CN: no focal findings. Muscle tone: Decreased. Muscle strength: No movements to stimuli. DTR: 1- Plantar reflex: No response bilaterally Gait: not able to walk. Sensory exam: no response.. Not able to access cerebellar signs. F-T-N test not performed. Objective Objective Vital Signs Date Time Temp Pulse Resp B/P (MAP) Pulse Ox O2 Delivery O2 Flow Rate FiO2 01/08/19 18:00 110 20 96/59 (71) 98 BiPAP/CPAP 01/08/19 16:00 99.2 99.2 01/08/19 08:00 15.0 Intake and Output 01/08/19 07:00 Intake Total 2755 ml Output Total 4360 ml Balance -1605 ml IV Total 2053 ml Blood Product 522 ml Blood Product IV Normal Saline Flush 120 ml Other 60 ml Output Urine Total 3410 ml Stool Total 800 ml Gastric Drainage Total 150 ml # Bowel Movements 1 Vitals Signs Vitals VS - Last 72 Hours, by Label Date Time Temp Pulse Resp B/P (MAP) Pulse Ox O2 Delivery O2 Flow Rate FiO2 01/08/19 18:00 110 20 96/59 (71) 98 BiPAP/CPAP 01/08/19 17:00 109 20 110/63 (79) 100 BiPAP/CPAP 01/08/19 16:12 Bi-pap 01/08/19 16:00 99.2 104 20 102/60 (74) 99 BiPAP/CPAP 99.2 01/08/19 15:50 98 BiPAP/CPAP 01/08/19 15:00 109 20 134/83 (100) 100 BiPAP/CPAP 01/08/19 14:00 108 20 138/72 (94) 100 BiPAP/CPAP 01/08/19 13:01 112 25 135/72 (93) 100 BiPAP/CPAP 01/08/19 12:20 98 BiPAP/CPAP 01/08/19 12:00 112 25 138/73 (94) 100 BiPAP/CPAP 01/08/19 12:00 Bi-pap 01/08/19 11:01 112 20 132/76 (94) 100 BiPAP/CPAP 01/08/19 10:00 99.0 113 20 138/75 (96) 97 BiPAP/CPAP 99.0 01/08/19 09:00 113 23 140/74 (96) 100 BiPAP/CPAP 01/08/19 08:28 98 BiPAP/CPAP 01/08/19 08:03 113 23 103/69 (80) 100 BiPAP/CPAP 01/08/19 08:00 15.0 7/16/19 07:54 Bi-pap 01/08/19 07:18 120 170/97 01/08/19 07:00 100.5 120 22 170/97 (121) 100 100.5 01/08/19 06:00 116 23 164/93 (116) 100 BiPAP/CPAP 01/08/19 05:50 99 BiPAP/CPAP 01/08/19 05:00 112 20 157/89 (111) 100 BiPAP/CPAP 01/08/19 04:00 Bi-pap 01/08/19 04:00 15.0 01/08/19 04:00 99.0 111 20 150/81 (104) 100 BiPAP/CPAP 99.0 01/08/19 03:40 99 BiPAP/CPAP 01/08/19 03:00 111 20 152/82 (105) 100 BiPAP/CPAP 01/08/19 02:00 111 20 152/82 (105) 100 BiPAP/CPAP 01/08/19 01:00 107 20 155/84 (107) 100 BiPAP/CPAP 01/08/19 00:15 99 BiPAP/CPAP 01/08/19 00:01 98.7 106 20 145/79 (101) 100 BiPAP/CPAP 98.7 01/08/19 00:00 15.0 01/07/19 23:59 Bi-pap 01/07/19 23:00 106 20 139/81 (100) 100 BiPAP/CPAP 01/07/19 22:20 99 BiPAP/CPAP 01/07/19 22:00 106 20 151/96 (114) 100 BiPAP/CPAP 01/07/19 21:00 102 18 148/88 (108) 100 BiPAP/CPAP 01/07/19 20:01 99 BiPAP/CPAP 01/07/19 20:00 15.0 01/07/19 20:00 98.3 101 18 143/85 (104) 100 BiPAP/CPAP 98.3 01/07/19 20:00 Bi-pap 01/07/19 19:00 102 18 141/86 (104) 100 BiPAP/CPAP 01/07/19 18:00 102 20 148/86 (106) 100 BiPAP/CPAP 01/07/19 17:00 98.2 102 20 142/81 (101) 97 BiPAP/CPAP 98.2 01/07/19 16:40 94 BiPAP/CPAP 01/07/19 16:20 89 Venturi Mask 15.0 01/07/19 16:00 Venturi Mask 15.0 01/07/19 16:00 100 20 129/77 (94) 89 Venturi Mask 15.0 01/07/19 15:00 98.2 102 20 112/74 (87) 89 Venturi Mask 15.0 98.2 01/07/19 14:20 98.2 102 22 126/70 98.2 01/07/19 14:03 98.2 105 18 107/72 98.2 01/07/19 13:56 98.2 105 20 110/72 (85) 91 Venturi Mask 98.2 01/07/19 13:16 98.2 105 20 107/72 98.2 01/07/19 13:00 106 20 107/72 (84) 94 Venturi Mask 01/07/19 12:00 106 20 117/72 (87) 94 Venturi Mask 01/07/19 12:00 Venturi Mask 01/07/19 11:00 98.0 110 20 110/67 (81) 91 Venturi Mask 98.0 01/07/19 10:00 114 23 108/67 (81) 91 Venturi Mask 01/07/19 09:00 108 20 98/53 (68) 90 Venturi Mask 01/07/19 08:00 109 18 98/53 (68) 90 Venturi Mask 01/07/19 08:00 Venturi Mask 01/07/19 07:00 98.0 113 18 108/67 (81) 92 Nasal Cannula 6.0 98.0 Laboratory Laboratory Laboratory Tests Test 01/07/19 18:55 01/08/19 03:55 01/08/19 08:00 Prothrombin Time 23.9 SEC (11.7-14.0) 23.8 SEC (11.7-14.0) Prothromb Time International Ratio 2.2 (0.8-1.1) 2.2 (0.8-1.1) Ammonia 28 mcmol/L (11-34) 20 mcmol/L (11-34) White Blood Count 8.7 x10^3/uL (4.0-11.0) Red Blood Count 2.42 x10^6/uL (4.30-5.70) Hemoglobin 8.7 g/dL (13.0-17.5) Hematocrit 25.0 % (39.0-53.0) Mean Corpuscular Volume 104 fL (79-100) Mean Corpuscular Hemoglobin 36 pg (25-35) Mean Corpuscular Hemoglobin Concent 35 g/dL (31-37) Red Cell Distribution Width 23.1 % (11.5-14.5) Platelet Count 113 x10^3/uL (140-400) Neutrophils (%) (Auto) 82 % (31-73) Lymphocytes (%) (Auto) 9 % (24-48) Monocytes (%) (Auto) 8 % (0-9) Eosinophils (%) (Auto) 0 % (0-3) Basophils (%) (Auto) 1 % (0-3) Neutrophils # (Auto) 7.1 x10^3/uL (1.8-7.7) Lymphocytes # (Auto) 0.8 x10^3/uL (1.0-4.8) Monocytes # (Auto) 0.7 x10^3/uL (0.0-1.1) Eosinophils # (Auto) 0.0 x10^3/uL (0.0-0.7) Basophils # (Auto) 0.1 x10^3/uL (0.0-0.2) Sodium Level 160 mmol/L (136-145) Potassium Level 3.0 mmol/L (3.5-5.1) Chloride Level 122 mmol/L (98-107) Carbon Dioxide Level 27 mmol/L (21-32) Anion Gap 11 (6-14) Blood Urea Nitrogen 29 mg/dL (8-26) Creatinine 0.9 mg/dL (0.7-1.3) Estimated GFR (Cockcroft-Gault) 91.7 BUN/Creatinine Ratio 32 (6-20) Glucose Level 146 mg/dL (70-99) Calcium Level 8.1 mg/dL (8.5-10.1) Total Bilirubin 15.2 mg/dL (0.2-1.0) Aspartate Amino Transf (AST/SGOT) 294 U/L (15-37) Alanine Aminotransferase (ALT/SGPT) 176 U/L (16-63) Alkaline Phosphatase 103 U/L (46-116) Total Protein 6.0 g/dL (6.4-8.2) Albumin 2.5 g/dL (3.4-5.0) Albumin/Globulin Ratio 0.7 (1.0-1.7) O2 Saturation 93 % (92-99) Arterial Blood pH 7.49 (7.35-7.45) Arterial Blood pCO2 at Patient Temp 31 mmHg (35-46) Arterial Blood pO2 at Patient Temp 70 mmHg (75-108) Arterial Blood HCO3 23 mmol/L (21-28) Arterial Blood Base Excess 0 mmol/L (-3-3) FiO2 50 Microbiology 01/06/19 Blood Culture - Preliminary, Resulted NO GROWTH AFTER 2 DAYS 01/04/19 Urine Culture - Final, Complete 01/04/19 Urine Culture Result 1 (DONALD) - Final, Complete Medication Medications Current Medications Labetalol HCl (Normodyne Iv Push) 10 mg PRN Q4HRS PRN IVP HYPERTENSION; Start 01/08/19 at 09:00 Potassium Bicarbonate (Potassium Effervescent Tablet) 40 meq 1X ONCE PEG Last administered on 01/08/19at 12:24; Start 01/08/19 at 11:30; Stop 01/08/19 at 11:33; Status DC Potassium Bicarbonate (Potassium Effervescent Tablet) 40 meq 1X ONCE PEG Last administered on 01/08/19at 16:06; Start 01/08/19 at 16:00; Stop 01/08/19 at 16:01; Status DC Sodium Chloride 1,000 ml @ 75 mls/hr [id number] IV Last administered on 01/08/19at 06:09; Start 01/08/19 at 06:00 Comment Review of Relevant I have reviewed the following items pierre (where applicable) has been applied. MAGY BLUE MD Jan 08, 2019 18:25
[2019-01-09] VITALS (24 sets, daily range): BP systolic 93–139; BP diastolic 62–88
[2019-01-09] MEDS: LACTULOSE 20 GM/30 ML SOLUTION. NG SCH ×3 (00:08→20:52)
[2019-01-09 04:42] LABS: PROTHROMBIN TIME PATIENT 28.9 SEC (11.7-14.0)
[2019-01-09 04:56] LABS: BASO % 0 % (0-3); EOS % 0 % (0-3); HEMATOCRIT 24.2 % (39.0-53.0); HEMOGLOBIN 8.3 g/dL (13.0-17.5); LYMPH # 2.1 x10^3/uL (1.0-4.8); LYMPH % 25 % (24-48); MEAN CORPUSCULAR HEMOGLOBIN 36 pg (25-35); MEAN CORPUSCULAR HGB CONC 34 g/dL (31-37); MEAN CORPUSCULAR VOLUME 104 fL (79-100); MONO # 0.7 x10^3/uL (0.0-1.1); MONO % 8 % (0-9); NEUT # 5.9 x10^3/uL (1.8-7.7); NEUT % 67 % (31-73); PLATELET COUNT 91 x10^3/uL (140-400); RED BLOOD COUNT 2.32 x10^6/uL (4.30-5.70); RED CELL DISTRIBUTION WIDTH 25.1 % (11.5-14.5); WHITE BLOOD COUNT 8.7 x10^3/uL (4.0-11.0)
[2019-01-09 05:19] LABS: ALBUMIN/GLOBULIN RATIO 0.6 (1.0-1.7); CALCIUM 7.7 mg/dL (8.5-10.1); CREATININE 0.9 mg/dL (0.7-1.3); GFR 91.7; TOTAL BILIRUBIN 15.7 mg/dL (0.2-1.0); TOTAL PROTEIN 5.3 g/dL (6.4-8.2)
[2019-01-09 05:36] LABS: POTASSIUM 2.6 mmol/L (3.5-5.1)
[2019-01-09] MEDS: PANTOPRAZOLE SODIUM IV DRIP 80 MG in IV NORMAL SALINE 100ML 100 ML IV SCH ×3 (06:14→16:37)
[2019-01-09] MEDS: PIPERACILLIN/TAZOBACTAM 3.375 GM in IV NORMAL SALINE 50ML 50 ML IV SCH ×3 (06:15→17:22)
[2019-01-09] MEDS ORDERED: POTASSIUM BICARB 20 MEQ EFFERVESCENT TABLET. PEG ONE (06:15)
--- NOTE | 2019-01-09 07:19 | PDOC ---
Infectious Disease Note Subjective Subjective On bipap Not responsive ROS ROS unobtainable Vital Sign Vital Signs Vital Signs Date Time Temp Pulse Resp B/P (MAP) Pulse Ox O2 Delivery O2 Flow Rate FiO2 01/09/19 06:00 102 22 113/73 (86) 97 BiPAP/CPAP 01/09/19 04:00 15.0 01/09/19 04:00 99.7 99.7 Physical Exam PHYSICAL EXAM GENERAL: lethargic on Bipap - tried to open eyes HEENT: Pupils equally round and reactive. Icterus. NG tube in place NECK: Supple. LUNGS: decreased in bases HEART: S1 and S2 regular ABDOMEN: Mildly distended, soft, no grimace or guarding to palpation. Bowel sounds present. GENITOURINARY: Indwelling Galdamez in place. Urine is dark and concentrated. EXTREMITIES: No gross edema or cyanosis IVS: Peripheral IV looks okay. SKIN: Warm to touch. He has multiple ecchymoses, especially lower extremities. NEUROLOGIC: unresponsive. Labs Lab Laboratory Tests Test 01/08/19 08:00 01/09/19 03:40 O2 Saturation 93 % (92-99) Arterial Blood pH 7.49 (7.35-7.45) Arterial Blood pCO2 at Patient Temp 31 mmHg (35-46) Arterial Blood pO2 at Patient Temp 70 mmHg (75-108) Arterial Blood HCO3 23 mmol/L (21-28) Arterial Blood Base Excess 0 mmol/L (-3-3) FiO2 50 White Blood Count 8.7 x10^3/uL (4.0-11.0) Red Blood Count 2.32 x10^6/uL (4.30-5.70) Hemoglobin 8.3 g/dL (13.0-17.5) Hematocrit 24.2 % (39.0-53.0) Mean Corpuscular Volume 104 fL (79-100) Mean Corpuscular Hemoglobin 36 pg (25-35) Mean Corpuscular Hemoglobin Concent 34 g/dL (31-37) Red Cell Distribution Width 25.1 % (11.5-14.5) Platelet Count 91 x10^3/uL (140-400) Neutrophils (%) (Auto) 67 % (31-73) Lymphocytes (%) (Auto) 25 % (24-48) Monocytes (%) (Auto) 8 % (0-9) Eosinophils (%) (Auto) 0 % (0-3) Basophils (%) (Auto) 0 % (0-3) Neutrophils # (Auto) 5.9 x10^3/uL (1.8-7.7) Lymphocytes # (Auto) 2.1 x10^3/uL (1.0-4.8) Monocytes # (Auto) 0.7 x10^3/uL (0.0-1.1) Eosinophils # (Auto) 0.0 x10^3/uL (0.0-0.7) Basophils # (Auto) 0.0 x10^3/uL (0.0-0.2) Prothrombin Time 28.9 SEC (11.7-14.0) Prothromb Time International Ratio 2.7 (0.8-1.1) Sodium Level 164 mmol/L (136-145) Potassium Level 2.6 mmol/L (3.5-5.1) Chloride Level 128 mmol/L (98-107) Carbon Dioxide Level 27 mmol/L (21-32) Anion Gap 9 (6-14) Blood Urea Nitrogen 20 mg/dL (8-26) Creatinine 0.9 mg/dL (0.7-1.3) Estimated GFR (Cockcroft-Gault) 91.7 BUN/Creatinine Ratio 22 (6-20) Glucose Level 137 mg/dL (70-99) Calcium Level 7.7 mg/dL (8.5-10.1) Total Bilirubin 15.7 mg/dL (0.2-1.0) Aspartate Amino Transf (AST/SGOT) 288 U/L (15-37) Alanine Aminotransferase (ALT/SGPT) 197 U/L (16-63) Alkaline Phosphatase 84 U/L (46-116) Total Protein 5.3 g/dL (6.4-8.2) Albumin 2.0 g/dL (3.4-5.0) Albumin/Globulin Ratio 0.6 (1.0-1.7) Micro Microbiology 01/06/19 Blood Culture - Preliminary, Resulted NO GROWTH AFTER 1 DAY 01/04/19 Urine Culture - Final, Complete 01/04/19 Urine Culture Result 1 (DONALD) - Final, Complete Objective Assessment Fever resolved Leukocytosis - better Thrombocytopenia Transaminitis - Multi-Organ Failure -stable ? Sepsis w/ hypotension, lactic acidosis- all cults neg Alcoholic liver disease/failure with ascites and hepatic encephalopathy - CT head -neg Coagulopathy - S/p FFP and Vit K Pancreatitis, lipase >3400 Hepatic mass Colitis Esophagitis Acute anemia Possible cholecystitis on U/S -Appreciate Gen Surg eval Plan Plan of Care Cont Zosyn for now but d/c Flagyl F/u BC x 2 F/u labs DNR/DNI D/w nursing Poor prognosis Critically ill GLADYS BURGOS MD Jan 09, 2019 07:19
--- NOTE | 2019-01-09 08:01 | NUR ---
SS following up with discharge planning. Palliative Care following. Pt is now DNR/DNI. SS will continue to follow for discharge planning.
[2019-01-09] MEDS: IPRATRPIUM/ALBUTEROL 0.5/2.5MG 3 ML NEBU. NEB SCH ×4 (08:02→19:59)
[2019-01-09 08:17] LABS: BASE EXCESS ABG 0 mmol/L (-3-3); FIO2 ABG 40; HCO3 ABG 24 mmol/L (21-28); PCO2 ABG 33 mmHg (35-46); PO2 ABG 87 mmHg (75-108); SAT O2 ABG 96 % (92-99)
[2019-01-09] MEDS: IV 1/2 NORMAL SALINE 1,000 ML IV SCH (08:40)
--- NOTE | 2019-01-09 09:05 | PDOC ---
PROGRESS NOTES Chief Complaint Chief Complaint Problems: (1) Jaundice (2) Alcoholic liver disease (3) Pancreatitis (4) Thrombocytopenia Chief Complaint: Bruising and jaundice History of Present Illness History of Present Illness 7�15�2019 Sepsis w/ hypotension, lactic acidosis and fever severely encephalopathic TRIES TO OPEN EYES hypernatremia, hypokalemia Hemoglobin 8.3 post transfusion 01/09 INR has climbed to 2.7 moved ICU Ammonia levels 208 ON ADMIT I discussed nurse ID following GI.consulted pulm consulted vit k 10mg sq plus 2 units FFP 01/07 PCXR 01/07 echo 01/07, cardiology consult The left ventricular systolic function is normal and the ejection fraction is within normal range. The Ejection Fraction is 60-65%. neurology consult, ct head NOTED 01/07 abd sono DNR Patient was seen and examined Bruising and jaundice severe alcohol abuse HX according to daughter Thrombocytopenia. , secondary to his liver disease and cirrhosis, Irregular wall thickening of the cecum and ascending colon with surrounding inflammatory type change and fluid. This is most compatible with severe colitis, could be of ischemic, infectious or inflammatory etiology. Colonic neoplasm not excludable. Milder colitis involving the remaining colon. Mild gallbladder distention with wall thickening and pericholecystic fluid, concerning for cholecystitis. Mild abdominal and pelvic ascites Mild wall thickening of the distal esophagus. Mild wall thickening of the duodenum. No significant small bowel distention. DNR status CONSULTED NEPHROLOGY FLUID MGT 01/09 ? TPN D51/4 NS 75 CC /HR FOR NOW 01/09 central line/ PICC Very poor prognosis, explained to and family 34 min cc time Vitals Vitals Vital Signs Date Time Temp Pulse Resp B/P (MAP) Pulse Ox O2 Delivery O2 Flow Rate FiO2 01/09/19 09:00 117 20 132/88 (103) 100 BiPAP/CPAP 01/09/19 08:00 99.7 99.7 01/09/19 04:00 15.0 Physical Exam Physical Exam GENERAL: lethargic on Bipap - tried to open eyes HEENT: Pupils equally round and reactive. Icterus. NG tube in place NECK: Supple. LUNGS: decreased in bases HEART: S1 and S2 regular ABDOMEN: Mildly distended, soft, no grimace or guarding to palpation. Bowel sounds present. GENITOURINARY: Indwelling Galdamez in place. Urine is dark and concentrated. EXTREMITIES: No gross edema or cyanosis IVS: Peripheral IV looks okay. SKIN: Warm to touch. He has multiple ecchymoses, especially lower extremities. NEUROLOGIC: unresponsive. General: Cooperative, No acute distress Heart: Regular rate, Normal S1, Normal S2 Lungs: Other (decrease bs) Abdomen: Soft, No tenderness, Other (ND) Extremities: No cyanosis, Other (noted eccyhmosis, 2 PLUS pedal edema ) Skin: Other (Bruising and jaundice) Labs LABS RIGHT VENTRICLE The right ventricle is normal size. The right ventricular systolic function is normal. ATRIA The left atrium size is normal. The right atrium size is normal. The interatrial septum is intact with no evidence for an atrial septal defect or patent foramen ovale as noted on 2-D or Doppler imaging. AORTIC VALVE The aortic valve is calcified but opens well. Doppler and Color Flow revealed no significant aortic regurgitation. There is no significant aortic valvular stenosis. MITRAL VALVE The mitral valve is normal in structure and function. There is no evidence of mitral valve prolapse. There is no mitral valve stenosis. Doppler and Color-flow revealed mild mitral regurgitation. TRICUSPID VALVE The tricuspid valve is normal in structure and function. Doppler and Color Flow revealed mild tricuspid regurgitation. The PA pressure was estimated at 34 mmHg. There is no tricuspid valve stenosis. PULMONIC VALVE The pulmonic valve is not well visualized. Doppler and Color Flow revealed no pulmonic valvular regurgitation. There is no pulmonic valvular stenosis. GREAT VESSELS The aortic root is normal in size. The ascending aorta is normal in size. The IVC is normal in size and collapses >50% with inspiration. PERICARDIAL EFFUSION There is no evidence of significant pericardial effusion. Critical Notification Critical Value: No <Conclusion> The left ventricle is normal size. The left ventricular systolic function is normal and the ejection fraction is within normal range. The Ejection Fraction is 60-65%. There is no significant aortic valvular stenosis. Doppler and Color Flow revealed no significant aortic regurgitation. Doppler and Color-flow revealed mild mitral regurgitation. Doppler and Color Flow revealed mild tricuspid regurgitation. The PA pressure was estimated at 34 mmHg. Signed by : Danny Joaquin MD Electronically Approved : 01/07/2019 15:34:14 SOURCE: BLOOD ENTR: 01/06/19-[address]: SACHIN TRAN III DO [facility] WOODARD,IVON R MD VO,LOREE RODRIGUEZ MD, SCOTT S MD ORDERED: BCULT Procedure Result BLOOD CULTURE Preliminary NO GROWTH AFTER [address] ------- [address] head without contrast History: Encephalopathy Technique: Noncontrast CT of the head. Exposure: One or more of the following individualized dose reduction techniques were utilized for this examination: 1. Automated exposure control 2. Adjustment of the mA and/or kV according to patient size 3. Use of iterative reconstruction technique. Comparison: None. Findings: No intracranial hemorrhage. No mass effect. No hydrocephalus. Extra-axial spaces are unremarkable. Imaged orbits are unremarkable. Imaged paranasal sinuses and mastoid air cells are clear. No acute calvarial fracture. Impression: 1. No acute intracranial abnormality. Electronically signed by: Jitendra Rankin MD (01/07/2019 3:54 PM) [id number] Laboratory Tests Test 01/09/19 03:40 01/09/19 07:50 White Blood Count 8.7 x10^3/uL (4.0-11.0) Red Blood Count 2.32 x10^6/uL (4.30-5.70) Hemoglobin 8.3 g/dL (13.0-17.5) Hematocrit 24.2 % (39.0-53.0) Mean Corpuscular Volume 104 fL (79-100) Mean Corpuscular Hemoglobin 36 pg (25-35) Mean Corpuscular Hemoglobin Concent 34 g/dL (31-37) Red Cell Distribution Width 25.1 % (11.5-14.5) Platelet Count 91 x10^3/uL (140-400) Neutrophils (%) (Auto) 67 % (31-73) Lymphocytes (%) (Auto) 25 % (24-48) Monocytes (%) (Auto) 8 % (0-9) Eosinophils (%) (Auto) 0 % (0-3) Basophils (%) (Auto) 0 % (0-3) Neutrophils # (Auto) 5.9 x10^3/uL (1.8-7.7) Lymphocytes # (Auto) 2.1 x10^3/uL (1.0-4.8) Monocytes # (Auto) 0.7 x10^3/uL (0.0-1.1) Eosinophils # (Auto) 0.0 x10^3/uL (0.0-0.7) Basophils # (Auto) 0.0 x10^3/uL (0.0-0.2) Prothrombin Time 28.9 SEC (11.7-14.0) Prothromb Time International Ratio 2.7 (0.8-1.1) Sodium Level 164 mmol/L (136-145) Potassium Level 2.6 mmol/L (3.5-5.1) Chloride Level 128 mmol/L (98-107) Carbon Dioxide Level 27 mmol/L (21-32) Anion Gap 9 (6-14) Blood Urea Nitrogen 20 mg/dL (8-26) Creatinine 0.9 mg/dL (0.7-1.3) Estimated GFR (Cockcroft-Gault) 91.7 BUN/Creatinine Ratio 22 (6-20) Glucose Level 137 mg/dL (70-99) Calcium Level 7.7 mg/dL (8.5-10.1) Total Bilirubin 15.7 mg/dL (0.2-1.0) Aspartate Amino Transf (AST/SGOT) 288 U/L (15-37) Alanine Aminotransferase (ALT/SGPT) 197 U/L (16-63) Alkaline Phosphatase 84 U/L (46-116) Total Protein 5.3 g/dL (6.4-8.2) Albumin 2.0 g/dL (3.4-5.0) Albumin/Globulin Ratio 0.6 (1.0-1.7) O2 Saturation 96 % (92-99) Arterial Blood pH 7.48 (7.35-7.45) Arterial Blood pCO2 at Patient Temp 33 mmHg (35-46) Arterial Blood pO2 at Patient Temp 87 mmHg (75-108) Arterial Blood HCO3 24 mmol/L (21-28) Arterial Blood Base Excess 0 mmol/L (-3-3) FiO2 40 Assessment and Plan Assessmemt and Plan Problems Medical Problems: (1) Alcoholic liver disease Status: Acute (2) Cholelithiasis Status: Acute (3) Colitis Status: Acute (4) Jaundice Status: Acute (5) Pancreatitis Status: Acute (6) Thrombocytopenia Status: Acute Comment Review of Relevant I have reviewed the following items pierre (where applicable) has been applied. Labs Laboratory Tests Test 01/07/19 18:55 01/08/19 03:55 01/08/19 08:00 01/09/19 03:40 Prothrombin Time 23.9 SEC (11.7-14.0) 23.8 SEC (11.7-14.0) 28.9 SEC (11.7-14.0) Prothromb Time International Ratio 2.2 (0.8-1.1) 2.2 (0.8-1.1) 2.7 (0.8-1.1) Ammonia 28 mcmol/L (11-34) 20 mcmol/L (11-34) White Blood Count 8.7 x10^3/uL (4.0-11.0) 8.7 x10^3/uL (4.0-11.0) Red Blood Count 2.42 x10^6/uL (4.30-5.70) 2.32 x10^6/uL (4.30-5.70) Hemoglobin 8.7 g/dL (13.0-17.5) 8.3 g/dL (13.0-17.5) Hematocrit 25.0 % (39.0-53.0) 24.2 % (39.0-53.0) Mean Corpuscular Volume 104 fL (79-100) 104 fL (79-100) Mean Corpuscular Hemoglobin 36 pg (25-35) 36 pg (25-35) Mean Corpuscular Hemoglobin Concent 35 g/dL (31-37) 34 g/dL (31-37) Red Cell Distribution Width 23.1 % (11.5-14.5) 25.1 % (11.5-14.5) Platelet Count 113 x10^3/uL (140-400) 91 x10^3/uL (140-400) Neutrophils (%) (Auto) 82 % (31-73) 67 % (31-73) Lymphocytes (%) (Auto) 9 % (24-48) 25 % (24-48) Monocytes (%) (Auto) 8 % (0-9) 8 % (0-9) Eosinophils (%) (Auto) 0 % (0-3) 0 % (0-3) Basophils (%) (Auto) 1 % (0-3) 0 % (0-3) Neutrophils # (Auto) 7.1 x10^3/uL (1.8-7.7) 5.9 x10^3/uL (1.8-7.7) Lymphocytes # (Auto) 0.8 x10^3/uL (1.0-4.8) 2.1 x10^3/uL (1.0-4.8) Monocytes # (Auto) 0.7 x10^3/uL (0.0-1.1) 0.7 x10^3/uL (0.0-1.1) Eosinophils # (Auto) 0.0 x10^3/uL (0.0-0.7) 0.0 x10^3/uL (0.0-0.7) Basophils # (Auto) 0.1 x10^3/uL (0.0-0.2) 0.0 x10^3/uL (0.0-0.2) Sodium Level 160 mmol/L (136-145) 164 mmol/L (136-145) Potassium Level 3.0 mmol/L (3.5-5.1) 2.6 mmol/L (3.5-5.1) Chloride Level 122 mmol/L (98-107) 128 mmol/L (98-107) Carbon Dioxide Level 27 mmol/L (21-32) 27 mmol/L (21-32) Anion Gap 11 (6-14) 9 (6-14) Blood Urea Nitrogen 29 mg/dL (8-26) 20 mg/dL (8-26) Creatinine 0.9 mg/dL (0.7-1.3) 0.9 mg/dL (0.7-1.3) Estimated GFR (Cockcroft-Gault) 91.7 91.7 BUN/Creatinine Ratio 32 (6-20) 22 (6-20) Glucose Level 146 mg/dL (70-99) 137 mg/dL (70-99) Calcium Level 8.1 mg/dL (8.5-10.1) 7.7 mg/dL (8.5-10.1) Total Bilirubin 15.2 mg/dL (0.2-1.0) 15.7 mg/dL (0.2-1.0) Aspartate Amino Transf (AST/SGOT) 294 U/L (15-37) 288 U/L (15-37) Alanine Aminotransferase (ALT/SGPT) 176 U/L (16-63) 197 U/L (16-63) Alkaline Phosphatase 103 U/L (46-116) 84 U/L (46-116) Total Protein 6.0 g/dL (6.4-8.2) 5.3 g/dL (6.4-8.2) Albumin 2.5 g/dL (3.4-5.0) 2.0 g/dL (3.4-5.0) Albumin/Globulin Ratio 0.7 (1.0-1.7) 0.6 (1.0-1.7) O2 Saturation 93 % (92-99) Arterial Blood pH 7.49 (7.35-7.45) Arterial Blood pCO2 at Patient Temp 31 mmHg (35-46) Arterial Blood pO2 at Patient Temp 70 mmHg (75-108) Arterial Blood HCO3 23 mmol/L (21-28) Arterial Blood Base Excess 0 mmol/L (-3-3) FiO2 50 Test 7/17/19 07:50 O2 Saturation 96 % (92-99) Arterial Blood pH 7.48 (7.35-7.45) Arterial Blood pCO2 at Patient Temp 33 mmHg (35-46) Arterial Blood pO2 at Patient Temp 87 mmHg (75-108) Arterial Blood HCO3 24 mmol/L (21-28) Arterial Blood Base Excess 0 mmol/L (-3-3) FiO2 40 Laboratory Tests Test 01/09/19 03:40 01/09/19 07:50 White Blood Count 8.7 x10^3/uL (4.0-11.0) Red Blood Count 2.32 x10^6/uL (4.30-5.70) Hemoglobin 8.3 g/dL (13.0-17.5) Hematocrit 24.2 % (39.0-53.0) Mean Corpuscular Volume 104 fL (79-100) Mean Corpuscular Hemoglobin 36 pg (25-35) Mean Corpuscular Hemoglobin Concent 34 g/dL (31-37) Red Cell Distribution Width 25.1 % (11.5-14.5) Platelet Count 91 x10^3/uL (140-400) Neutrophils (%) (Auto) 67 % (31-73) Lymphocytes (%) (Auto) 25 % (24-48) Monocytes (%) (Auto) 8 % (0-9) Eosinophils (%) (Auto) 0 % (0-3) Basophils (%) (Auto) 0 % (0-3) Neutrophils # (Auto) 5.9 x10^3/uL (1.8-7.7) Lymphocytes # (Auto) 2.1 x10^3/uL (1.0-4.8) Monocytes # (Auto) 0.7 x10^3/uL (0.0-1.1) Eosinophils # (Auto) 0.0 x10^3/uL (0.0-0.7) Basophils # (Auto) 0.0 x10^3/uL (0.0-0.2) Prothrombin Time 28.9 SEC (11.7-14.0) Prothromb Time International Ratio 2.7 (0.8-1.1) Sodium Level 164 mmol/L (136-145) Potassium Level 2.6 mmol/L (3.5-5.1) Chloride Level 128 mmol/L (98-107) Carbon Dioxide Level 27 mmol/L (21-32) Anion Gap 9 (6-14) Blood Urea Nitrogen 20 mg/dL (8-26) Creatinine 0.9 mg/dL (0.7-1.3) Estimated GFR (Cockcroft-Gault) 91.7 BUN/Creatinine Ratio 22 (6-20) Glucose Level 137 mg/dL (70-99) Calcium Level 7.7 mg/dL (8.5-10.1) Total Bilirubin 15.7 mg/dL (0.2-1.0) Aspartate Amino Transf (AST/SGOT) 288 U/L (15-37) Alanine Aminotransferase (ALT/SGPT) 197 U/L (16-63) Alkaline Phosphatase 84 U/L (46-116) Total Protein 5.3 g/dL (6.4-8.2) Albumin 2.0 g/dL (3.4-5.0) Albumin/Globulin Ratio 0.6 (1.0-1.7) O2 Saturation 96 % (92-99) Arterial Blood pH 7.48 (7.35-7.45) Arterial Blood pCO2 at Patient Temp 33 mmHg (35-46) Arterial Blood pO2 at Patient Temp 87 mmHg (75-108) Arterial Blood HCO3 24 mmol/L (21-28) Arterial Blood Base Excess 0 mmol/L (-3-3) FiO2 40 Microbiology 01/06/19 Blood Culture - Preliminary, Resulted NO GROWTH AFTER 2 DAYS 01/04/19 Urine Culture - Final, Complete 01/04/19 Urine Culture Result 1 (DONALD) - Final, Complete Medications Current Medications Iohexol (Omnipaque 240 Mg/ml) 30 ml 1X ONCE PO Last administered on 01/04/19at 15:15; Start 01/04/19 at 15:15; Stop 01/04/19 at 15:17; Status DC Iohexol (Omnipaque 300 Mg/ml) 75 ml 1X ONCE IV Last administered on 01/04/19at 16:20; Start 01/04/19 at 15:15; Stop 01/04/19 at 15:17; Status DC Info (CONTRAST GIVEN -- Rx MONITORING) 1 each PRN DAILY PRN MC SEE COMMENTS; Start 01/04/19 at 15:30; Stop 01/06/19 at 15:29; Status DC Multivitamins 10 ml/Thiamine HCl 100 mg/Folic Acid 1 mg/Sodium Chloride 1,011.2 ml @ 100 mls/ hr DAILY IV Last administered on 01/08/19at 08:12; Start 01/04/19 at 18:00; Stop 01/08/19 at 19:07; Status DC Chlordiazepoxide (Librium) 50 mg PRN Q1HR PRN PO For CIWA 8-14 Last administered on 01/04/19at 18:17; Start 01/04/19 at 17:45 Chlordiazepoxide (Librium) 100 mg PRN Q1HR PRN PO For CIWA 15 or greater Last administered on 01/05/19at 06:27; Start 01/04/19 at 17:45 Lorazepam (Ativan) 4 mg PRN Q1HR PRN PO For CIWA 8-14 Last administered on 01/04/19at 18:17; Start 01/04/19 at 17:45 Lorazepam (Ativan) 8 mg PRN Q1HR PRN PO For CIWA 15 or greater; Start 01/04/19 at 17:45 Haloperidol Lactate (Haldol Inj) 5 mg PRN Q4HRS PRN IVP Hallucinatns,Confusn,Delirium; Start 01/04/19 at 17:45 Diphenhydramine HCl (Benadryl) 25 mg PRN Q15MIN PRN IVP EPS symptoms 2'Haldol admin; Start 01/04/19 at 17:45 Clonidine HCl (Catapres) 0.1 mg PRN Q1HR PRN PO SBP > 180 or DBP > 100, MRX3 Last administered on 01/08/19at 07:18; Start 01/04/19 at 17:45; Stop 01/08/19 at 08:58; Status DC Lorazepam (Ativan Inj) 2 mg PRN Q1HR PRN IV For CIWA 8-14 Last administered on 01/04/19at 21:08; Start 01/04/19 at 19:15 Lorazepam (Ativan Inj) 4 mg PRN Q1HR PRN IV For CIWA 15 or greater Last administered on 01/05/19at 06:28; Start 01/04/19 at 19:15 Lorazepam (Ativan Inj) 2 mg PRN Q15MIN PRN IV SEE COMMENTS; Start 01/04/19 at 19:15; Status UNV Lorazepam (Ativan Inj) 4 mg PRN Q15MIN PRN IV SEE COMMENTS; Start 01/04/19 at 19:15; Status UNV Ondansetron HCl (Zofran) 4 mg PRN Q6HRS PRN IV NAUSEA/VOMITING Last administered on 01/04/19at 19:34; Start 01/04/19 at 19:30 Pantoprazole Sodium (PROTONIX VIAL for IV PUSH) 40 mg DAILYAC IVP Last administered on 01/06/19at 10:36; Start 01/06/19 at 10:00; Stop 01/06/19 at 12:17; Status DC Phytonadione (Vitamin K Ampule) 10 mg 1X ONCE SQ Last administered on 01/06/19at 10:36; Start 01/06/19 at 10:15; Stop 01/06/19 at 10:16; Status DC Piperacillin Sod/ Tazobactam Sod (Zosyn Per Pharmacy) 1 each PRN DAILY PRN MC SEE COMMENTS; Start 01/06/19 at 10:30 Piperacillin Sod/ Tazobactam Sod 3.375 gm/Sodium Chloride 50 ml @ 100 mls/hr Q6HRS IV Last administered on 01/09/19at 06:15; Start 01/06/19 at 11:00 Lactulose (Lactulose) 30 gm Q6HRS NG Last administered on 01/09/19at 05:53; Start 01/06/19 at 12:00 Metronidazole 100 ml @ 100 mls/hr Q8HRS IV Last administered on 01/09/19at 05:53; Start 01/06/19 at 14:00; Stop 01/09/19 at 07:19; Status DC Pantoprazole Sodium 80 mg/ Sodium Chloride 100 ml @ 10 mls/hr Q10H IV Last administered on 01/09/19at 06:14; Start 01/06/19 at 12:30 Octreotide Acetate 500 mcg/ Sodium Chloride 101 ml @ 0 mls/hr CONT PRN IV SEE I/O RECORD Last administered on 01/08/19at 06:08; Start 01/06/19 at 12:15; Stop 01/08/19 at 10:48; Status DC Norepinephrine Bitartrate 250 ml @ 14.235 mls/ hr CONT PRN IV SEE I/O RECORD; Start 01/06/19 at 20:15 Albumin Human 100 ml @ 100 mls/hr 1X ONCE IV Last administered on 01/06/19at 21:30; Start 01/06/19 at 20:15; Stop 01/06/19 at 21:14; Status DC Phytonadione (Vitamin K Ampule) 10 mg 1X ONCE SQ Last administered on 01/07/19at 13:04; Start 01/07/19 at 11:45; Stop 01/07/19 at 11:46; Status DC Albuterol/ Ipratropium (Duoneb) 3 ml RTQID NEB Last administered on 01/09/19at 08:02; Start 01/07/19 at 16:00 Sodium Chloride 1,000 ml @ 75 mls/hr [id number] IV Last administered on 01/08/19at 23:47; Start 01/08/19 at 06:00 Labetalol HCl (Normodyne Iv Push) 10 mg PRN Q4HRS PRN IVP HYPERTENSION; Start 01/08/19 at 09:00 Potassium Bicarbonate (Potassium Effervescent Tablet) 40 meq 1X ONCE PEG Last administered on 01/08/19at 12:24; Start 01/08/19 at 11:30; Stop 01/08/19 at 11:33; Status DC Potassium Bicarbonate (Potassium Effervescent Tablet) 40 meq 1X ONCE PEG Last administered on 01/08/19at 16:06; Start 01/08/19 at 16:00; Stop 01/08/19 at 16:01; Status DC Potassium Bicarbonate (Potassium Effervescent Tablet) 80 meq 1X ONCE PEG Last administered on 01/09/19at 06:58; Start 01/09/19 at 06:15; Stop 01/09/19 at 06:21; Status DC Active Scripts Active Reported Omeprazole 40 Mg Capsule. 1 Cap PO DAILY Vitals/I & O Vital Sign - Last 24 Hours 01/08/19 01/08/19 01/08/19 01/08/19 10:00 11:01 12:00 12:00 Temp 99.0 99.0 Pulse 113 112 112 Resp 20 20 25 B/P (MAP) 138/75 (96) 132/76 (94) 138/73 (94) Pulse Ox 97 100 100 O2 Delivery BiPAP/CPAP BiPAP/CPAP Bi-pap BiPAP/CPAP 01/08/19 01/08/19 01/08/19 01/08/19 12:20 13:01 14:00 15:00 Pulse 112 108 109 Resp 25 20 20 B/P (MAP) 135/72 (93) 138/72 (94) 134/83 (100) Pulse Ox 98 100 100 100 O2 Delivery BiPAP/CPAP BiPAP/CPAP BiPAP/CPAP BiPAP/CPAP 01/08/19 01/08/19 01/08/19 01/08/19 15:50 16:00 16:12 17:00 Temp 99.2 99.2 Pulse 104 109 Resp 20 20 B/P (MAP) 102/60 (74) 110/63 (79) Pulse Ox 98 99 100 O2 Delivery BiPAP/CPAP BiPAP/CPAP Bi-pap BiPAP/CPAP 01/08/19 01/08/19 01/08/19 01/08/19 18:00 19:00 19:38 20:00 Pulse 110 110 Resp 20 20 B/P (MAP) 96/59 (71) 123/75 (91) Pulse Ox 98 100 100 O2 Delivery BiPAP/CPAP BiPAP/CPAP BiPAP/CPAP O2 Flow Rate 15.0 01/08/19 01/08/19 01/08/19 01/08/19 20:00 20:00 21:00 21:00 Temp 99.3 99.3 Pulse 117 104 Resp 20 20 B/P (MAP) 123/75 (91) 114/69 (84) Pulse Ox 100 100 100 O2 Delivery BiPAP/CPAP Bi-pap BiPAP/CPAP BiPAP/CPAP 01/08/19 01/08/19 01/08/19 01/08/19 22:00 23:00 23:57 23:59 Pulse 112 100 Resp 23 20 B/P (MAP) 115/68 (84) 112/63 (79) Pulse Ox 100 100 100 O2 Delivery BiPAP/CPAP BiPAP/CPAP BiPAP/CPAP Bi-pap 01/09/19 01/09/19 01/09/19 01/09/19 00:00 00:01 01:00 02:00 Temp 99.7 99.7 Pulse 98 118 105 Resp 20 22 20 B/P (MAP) 125/67 (86) 123/68 (86) 136/88 (104) Pulse Ox 98 97 95 O2 Delivery BiPAP/CPAP BiPAP/CPAP BiPAP/CPAP O2 Flow Rate 15.0 01/09/19 01/09/19 01/09/19 01/09/19 02:30 03:00 04:00 04:00 Temp 99.7 99.7 Pulse 107 104 Resp 22 22 B/P (MAP) 139/86 (103) 118/77 (91) Pulse Ox 100 99 99 O2 Delivery BiPAP/CPAP BiPAP/CPAP Bi-pap BiPAP/CPAP 01/09/19 01/09/19 01/09/19 01/09/19 04:00 05:00 05:15 06:00 Pulse 102 102 Resp 22 22 B/P (MAP) 131/86 (101) 113/73 (86) Pulse Ox 99 98 97 O2 Delivery BiPAP/CPAP BiPAP/CPAP BiPAP/CPAP O2 Flow Rate 15.0 01/09/19 01/09/19 01/09/19 01/09/19 07:00 07:50 08:00 08:00 Temp 99.7 99.7 Pulse 104 112 Resp 18 20 B/P (MAP) 127/80 (96) 135/86 (102) Pulse Ox 100 99 100 O2 Delivery BiPAP/CPAP BiPAP/CPAP BiPAP/CPAP Bi-pap 01/09/19 09:00 Pulse 117 Resp 20 B/P (MAP) 132/88 (103) Pulse Ox 100 O2 Delivery BiPAP/CPAP Intake and Output 01/08/19 01/08/19 01/09/19 15:00 23:00 07:00 Intake Total 558 ml 2681 ml 484.4 ml Output Total 680 ml 1775 ml 1140 ml Balance -122 ml 906 ml -655.6 ml DANG OWUSU MD Jan 09, 2019 09:05
[2019-01-09] MEDS ORDERED: POLYVINYL ALCOHOL 1.4% OPHTH SOLUTION 15ML BOTTLE. OU PRN (10:00)
[2019-01-09] MEDS ORDERED: IV DEXTROSE 5 %-0.2 % NACL 1,000 ML IV SCH (10:30)
[2019-01-09] MEDS ORDERED: POTASSIUM CHL 20MEQ PREMIX 50 ML IV SCH (10:30)
[2019-01-09] MEDS ORDERED: POTASSIUM CHLORIDE 10MEQ 100 ML IV SCH (11:00)
--- NOTE | 2019-01-09 11:06 | PDOC ---
Objective: Objective: D/w nurse - no bleeding, has lactulose QID w/ rectal tube, opens eyes and mumbles. D/w Dr. Cervantes. Vital Signs: Vital Signs Date Time Temp Pulse Resp B/P (MAP) Pulse Ox O2 Delivery O2 Flow Rate FiO2 01/09/19 10:00 106 20 111/75 (87) 100 BiPAP/CPAP 01/09/19 08:00 99.7 99.7 01/09/19 04:00 15.0 Labs: Laboratory Tests Test 01/09/19 03:40 01/09/19 07:50 White Blood Count 8.7 x10^3/uL Red Blood Count 2.32 x10^6/uL Hemoglobin 8.3 g/dL Hematocrit 24.2 % Mean Corpuscular Volume 104 fL Mean Corpuscular Hemoglobin 36 pg Mean Corpuscular Hemoglobin Concent 34 g/dL Red Cell Distribution Width 25.1 % Platelet Count 91 x10^3/uL Neutrophils (%) (Auto) 67 % Lymphocytes (%) (Auto) 25 % Monocytes (%) (Auto) 8 % Eosinophils (%) (Auto) 0 % Basophils (%) (Auto) 0 % Neutrophils # (Auto) 5.9 x10^3/uL Lymphocytes # (Auto) 2.1 x10^3/uL Monocytes # (Auto) 0.7 x10^3/uL Eosinophils # (Auto) 0.0 x10^3/uL Basophils # (Auto) 0.0 x10^3/uL Prothrombin Time 28.9 SEC Prothromb Time International Ratio 2.7 Sodium Level 164 mmol/L Potassium Level 2.6 mmol/L Chloride Level 128 mmol/L Carbon Dioxide Level 27 mmol/L Anion Gap 9 Blood Urea Nitrogen 20 mg/dL Creatinine 0.9 mg/dL Estimated GFR (Cockcroft-Gault) 91.7 BUN/Creatinine Ratio 22 Glucose Level 137 mg/dL Calcium Level 7.7 mg/dL Total Bilirubin 15.7 mg/dL Aspartate Amino Transf (AST/SGOT) 288 U/L Alanine Aminotransferase (ALT/SGPT) 197 U/L Alkaline Phosphatase 84 U/L Total Protein 5.3 g/dL Albumin 2.0 g/dL Albumin/Globulin Ratio 0.6 O2 Saturation 96 % Arterial Blood pH 7.48 Arterial Blood pCO2 at Patient Temp 33 mmHg Arterial Blood pO2 at Patient Temp 87 mmHg Arterial Blood HCO3 24 mmol/L Arterial Blood Base Excess 0 mmol/L FiO2 40 C PE: GEN: ill LUNGS: BiPAP HEART: tachycardic ABD: soft, non-tender NEURO/PSYCH: eyes flutter open A/P: Alcoholic hepatitis, encephalopathy, resp failure Anemia/UGI bleeding - stable/resolving Hypernatremia, hypokalemia - per primary -- No further bleeding - ongoing coagulopathy but probably doesn't need FFP. Reduce lactulose to BID, continue PPI. EMILEE TRAMMELL Jan 09, 2019 11:06
--- NOTE | 2019-01-09 12:35 | PDOC2 ---
CONSULT Date of Consult Date of Consult DATE: 01/09/19 TIME: 12:21 Reason for Consult Reason for Consult: E-Lyte abnormalities Identification/Chief Complaint Chief Complaint Unable to obtain, Pt unresponsive Source Source: Chart review History of Present Illness Reason for Visit: This patient is a 43-year-old male who is encephalopathic, unable to provide history of present illness, past medical history or review of systems. Hx oBtained from chart review and RN - he has a history of drinking alcohol quite heavily over the last 22 years, averaging 30-60 beers a day. Over the last year, he has been depressed, shaky and not well-coordinated with falls. He could not work regularly. He tried to quit drinking a few times that failed. He complained nosebleeds, blood in urine and bruising. He was referred to the ER by his PCP for abnormal labs. Findings on CT abdomen/pelvis with oral and IV contrast concerning for severe colitis, cholecystitis, asc ites, esophagitis and duodenitis, cirrhosis, hepatic neoplasm and possible ileus or functional obstruction. Since admission, he has become less responsive and obtunded with fever and hypotension, transferred to ICU on 01/06 He has lost about 50 pounds in a span of 3 month period last year and his weight has been somewhat stable since. Nephrology consulted for Elevated Na and Low K . UOP adequate per RN. Currently on D51/2 NS . He is on Bipap, he is DNR/DNI Past Medical History GI: GERD Psych: Anxiety, Addictions (ETOH) Past Surgical History Past Surgical History: No pertinent history Family History Family History: Family History Unknown Social History No ALCOHOL: heavy Drugs: None Current Problem List Problem List Problems Medical Problems: (1) Alcoholic liver disease Status: Acute (2) Cholelithiasis Status: Acute (3) Colitis Status: Acute (4) Jaundice Status: Acute (5) Pancreatitis Status: Acute (6) Thrombocytopenia Status: Acute Current Medications Current Medications Current Medications Iohexol (Omnipaque 240 Mg/ml) 30 ml 1X ONCE PO Last administered on 01/04/19at 15:15; Start 01/04/19 at 15:15; Stop 01/04/19 at 15:17; Status DC Iohexol (Omnipaque 300 Mg/ml) 75 ml 1X ONCE IV Last administered on 01/04/19at 16:20; Start 01/04/19 at 15:15; Stop 01/04/19 at 15:17; Status DC Info (CONTRAST GIVEN -- Rx MONITORING) 1 each PRN DAILY PRN MC SEE COMMENTS; Start 01/04/19 at 15:30; Stop 01/06/19 at 15:29; Status DC Multivitamins 10 ml/Thiamine HCl 100 mg/Folic Acid 1 mg/Sodium Chloride 1,011.2 ml @ 100 mls/ hr DAILY IV Last administered on 01/08/19at 08:12; Start 01/04/19 at 18:00; Stop 01/08/19 at 19:07; Status DC Chlordiazepoxide (Librium) 50 mg PRN Q1HR PRN PO For CIWA 8-14 Last administered on 01/04/19at 18:17; Start 01/04/19 at 17:45 Chlordiazepoxide (Librium) 100 mg PRN Q1HR PRN PO For CIWA 15 or greater Last administered on 01/05/19at 06:27; Start 01/04/19 at 17:45 Lorazepam (Ativan) 4 mg PRN Q1HR PRN PO For CIWA 8-14 Last administered on 01/04/19at 18:17; Start 01/04/19 at 17:45 Lorazepam (Ativan) 8 mg PRN Q1HR PRN PO For CIWA 15 or greater; Start 01/04/19 at 17:45 Haloperidol Lactate (Haldol Inj) 5 mg PRN Q4HRS PRN IVP Hallucinatns,Confusn,Delirium; Start 01/04/19 at 17:45 Diphenhydramine HCl (Benadryl) 25 mg PRN Q15MIN PRN IVP EPS symptoms 2'Haldol admin; Start 01/04/19 at 17:45 Clonidine HCl (Catapres) 0.1 mg PRN Q1HR PRN PO SBP > 180 or DBP > 100, MRX3 Last administered on 01/08/19at 07:18; Start 01/04/19 at 17:45; Stop 01/08/19 at 08:58; Status DC Lorazepam (Ativan Inj) 2 mg PRN Q1HR PRN IV For CIWA 8-14 Last administered on 01/04/19at 21:08; Start 01/04/19 at 19:15 Lorazepam (Ativan Inj) 4 mg PRN Q1HR PRN IV For CIWA 15 or greater Last administered on 01/05/19at 06:28; Start 01/04/19 at 19:15 Lorazepam (Ativan Inj) 2 mg PRN Q15MIN PRN IV SEE COMMENTS; Start 01/04/19 at 19:15; Status UNV Lorazepam (Ativan Inj) 4 mg PRN Q15MIN PRN IV SEE COMMENTS; Start 01/04/19 at 19:15; Status UNV Ondansetron HCl (Zofran) 4 mg PRN Q6HRS PRN IV NAUSEA/VOMITING Last administered on 01/04/19at 19:34; Start 01/04/19 at 19:30 Pantoprazole Sodium (PROTONIX VIAL for IV PUSH) 40 mg DAILYAC IVP Last administered on 01/06/19at 10:36; Start 01/06/19 at 10:00; Stop 01/06/19 at 12:17; Status DC Phytonadione (Vitamin K Ampule) 10 mg 1X ONCE SQ Last administered on 01/06/19at 10:36; Start 01/06/19 at 10:15; Stop 01/06/19 at 10:16; Status DC Piperacillin Sod/ Tazobactam Sod (Zosyn Per Pharmacy) 1 each PRN DAILY PRN MC SEE COMMENTS; Start 01/06/19 at 10:30 Piperacillin Sod/ Tazobactam Sod 3.375 gm/Sodium Chloride 50 ml @ 100 mls/hr Q6HRS IV Last administered on 01/09/19at 11:14; Start 01/06/19 at 11:00 Lactulose (Lactulose) 30 gm Q6HRS NG Last administered on 01/09/19at 05:53; Start 01/06/19 at 12:00; Stop 01/09/19 at 10:51; Status DC Metronidazole 100 ml @ 100 mls/hr Q8HRS IV Last administered on 01/09/19at 05:53; Start 01/06/19 at 14:00; Stop 01/09/19 at 07:19; Status DC Pantoprazole Sodium 80 mg/ Sodium Chloride 100 ml @ 10 mls/hr Q10H IV Last administered on 01/09/19at 06:14; Start 01/06/19 at 12:30 Octreotide Acetate 500 mcg/ Sodium Chloride 101 ml @ 0 mls/hr CONT PRN IV SEE I/O RECORD Last administered on 01/08/19at 06:08; Start 01/06/19 at 12:15; Stop 01/08/19 at 10:48; Status DC Norepinephrine Bitartrate 250 ml @ 14.235 mls/ hr CONT PRN IV SEE I/O RECORD; Start 01/06/19 at 20:15 Albumin Human 100 ml @ 100 mls/hr 1X ONCE IV Last administered on 01/06/19at 21:30; Start 01/06/19 at 20:15; Stop 01/06/19 at 21:14; Status DC Phytonadione (Vitamin K Ampule) 10 mg 1X ONCE SQ Last administered on 01/07/19at 13:04; Start 01/07/19 at 11:45; Stop 01/07/19 at 11:46; Status DC Albuterol/ Ipratropium (Duoneb) 3 ml RTQID NEB Last administered on 01/09/19at 11:47; Start 01/07/19 at 16:00 Sodium Chloride 1,000 ml @ 75 mls/hr [id number] IV Last administered on 01/08/19at 23:47; Start 01/08/19 at 06:00; Stop 01/09/19 at 10:19; Status DC Labetalol HCl (Normodyne Iv Push) 10 mg PRN Q4HRS PRN IVP HYPERTENSION; Start 01/08/19 at 09:00 Potassium Bicarbonate (Potassium Effervescent Tablet) 40 meq 1X ONCE PEG Last administered on 01/08/19at 12:24; Start 01/08/19 at 11:30; Stop 01/08/19 at 11:33; Status DC Potassium Bicarbonate (Potassium Effervescent Tablet) 40 meq 1X ONCE PEG Last administered on 01/08/19at 16:06; Start 01/08/19 at 16:00; Stop 01/08/19 at 16:01; Status DC Potassium Bicarbonate (Potassium Effervescent Tablet) 80 meq 1X ONCE PEG Last administered on 01/09/19at 06:58; Start 01/09/19 at 06:15; Stop 01/09/19 at 06:21; Status DC Artificial Tears (Artificial Tears) 1 drop PRN Q15MIN PRN OU DRY EYE Last administered on 01/09/19at 10:11; Start 01/09/19 at 10:00 Dextrose/Sodium Chloride 1,000 ml @ 75 mls/hr [id number] IV Last administered on 01/09/19at 11:03; Start 01/09/19 at 10:30; Stop 01/09/19 at 12:20; Status DC Potassium Chloride/Water 50 ml @ 50 mls/hr Q1H IV ; Start 01/09/19 at 10:30; Stop 01/09/19 at 12:29; Status UNV Potassium Chloride/Water 100 ml @ 100 mls/hr Q1H IV ; Start 01/09/19 at 11:00; Stop 01/09/19 at 11:00; Status DC Lactulose (Lactulose) 30 gm BID NG ; Start 01/09/19 at 21:00 Dextrose 1,000 ml @ 125 mls/hr Q8H IV ; Start 01/09/19 at 12:30; Status UNV Active Scripts Active Reported Omeprazole 40 Mg Capsule. 1 Cap PO DAILY Allergies Allergies: Coded Allergies: No Known Drug Allergies (Unverified , 01/04/19) ROS Review of System Unable to obtain Physical Exam Physical Exam GENERAL: lethargic on Bipap HEENT: Icterus. NG tube in place NECK: Supple. LUNGS: decreased in bases HEART: S1 and S2 regular ABDOMEN: Mildly distended, soft, GENITOURINARY: Indwelling Galdamez in place. Urine dark and concentrated. EXTREMITIES: No gross edema or cyanosis SKIN: multiple ecchymoses,no rash . NEUROLOGIC: unresponsive. Vital Signs Vital Signs Date Time Temp Pulse Resp B/P (MAP) Pulse Ox O2 Delivery O2 Flow Rate FiO2 01/09/19 12:00 99.6 108 20 118/76 (90) 100 BiPAP/CPAP 99.6 01/09/19 04:00 15.0 Assessment & Plan Hypernatremia - IV D5W , Monitor , supportive care If hemodynamically unstable will add NS Hypokalemia- Replace as needed Sepsis w/ hypotension- Not Hypotensive currently, Not on pressors Anemia- Hemoglobin 8.3 post transfusion 01/09 Alcoholic liver disease/failure with ascites and hepatic encephalopathy - CT head -neg Coagulopathy - S/p FFP and Vit K Pancreatitis, lipase >3400 Hepatic mass Possible cholecystitis on U/S Labs Labs Laboratory Tests Test 01/07/19 18:55 01/08/19 03:55 01/08/19 08:00 01/09/19 03:40 Prothrombin Time 23.9 SEC (11.7-14.0) 23.8 SEC (11.7-14.0) 28.9 SEC (11.7-14.0) Prothromb Time International Ratio 2.2 (0.8-1.1) 2.2 (0.8-1.1) 2.7 (0.8-1.1) Ammonia 28 mcmol/L (11-34) 20 mcmol/L (11-34) White Blood Count 8.7 x10^3/uL (4.0-11.0) 8.7 x10^3/uL (4.0-11.0) Red Blood Count 2.42 x10^6/uL (4.30-5.70) 2.32 x10^6/uL (4.30-5.70) Hemoglobin 8.7 g/dL (13.0-17.5) 8.3 g/dL (13.0-17.5) Hematocrit 25.0 % (39.0-53.0) 24.2 % (39.0-53.0) Mean Corpuscular Volume 104 fL (79-100) 104 fL (79-100) Mean Corpuscular Hemoglobin 36 pg (25-35) 36 pg (25-35) Mean Corpuscular Hemoglobin Concent 35 g/dL (31-37) 34 g/dL (31-37) Red Cell Distribution Width 23.1 % (11.5-14.5) 25.1 % (11.5-14.5) Platelet Count 113 x10^3/uL (140-400) 91 x10^3/uL (140-400) Neutrophils (%) (Auto) 82 % (31-73) 67 % (31-73) Lymphocytes (%) (Auto) 9 % (24-48) 25 % (24-48) Monocytes (%) (Auto) 8 % (0-9) 8 % (0-9) Eosinophils (%) (Auto) 0 % (0-3) 0 % (0-3) Basophils (%) (Auto) 1 % (0-3) 0 % (0-3) Neutrophils # (Auto) 7.1 x10^3/uL (1.8-7.7) 5.9 x10^3/uL (1.8-7.7) Lymphocytes # (Auto) 0.8 x10^3/uL (1.0-4.8) 2.1 x10^3/uL (1.0-4.8) Monocytes # (Auto) 0.7 x10^3/uL (0.0-1.1) 0.7 x10^3/uL (0.0-1.1) Eosinophils # (Auto) 0.0 x10^3/uL (0.0-0.7) 0.0 x10^3/uL (0.0-0.7) Basophils # (Auto) 0.1 x10^3/uL (0.0-0.2) 0.0 x10^3/uL (0.0-0.2) Sodium Level 160 mmol/L (136-145) 164 mmol/L (136-145) Potassium Level 3.0 mmol/L (3.5-5.1) 2.6 mmol/L (3.5-5.1) Chloride Level 122 mmol/L (98-107) 128 mmol/L (98-107) Carbon Dioxide Level 27 mmol/L (21-32) 27 mmol/L (21-32) Anion Gap 11 (6-14) 9 (6-14) Blood Urea Nitrogen 29 mg/dL (8-26) 20 mg/dL (8-26) Creatinine 0.9 mg/dL (0.7-1.3) 0.9 mg/dL (0.7-1.3) Estimated GFR (Cockcroft-Gault) 91.7 91.7 BUN/Creatinine Ratio 32 (6-20) 22 (6-20) Glucose Level 146 mg/dL (70-99) 137 mg/dL (70-99) Calcium Level 8.1 mg/dL (8.5-10.1) 7.7 mg/dL (8.5-10.1) Total Bilirubin 15.2 mg/dL (0.2-1.0) 15.7 mg/dL (0.2-1.0) Aspartate Amino Transf (AST/SGOT) 294 U/L (15-37) 288 U/L (15-37) Alanine Aminotransferase (ALT/SGPT) 176 U/L (16-63) 197 U/L (16-63) Alkaline Phosphatase 103 U/L (46-116) 84 U/L (46-116) Total Protein 6.0 g/dL (6.4-8.2) 5.3 g/dL (6.4-8.2) Albumin 2.5 g/dL (3.4-5.0) 2.0 g/dL (3.4-5.0) Albumin/Globulin Ratio 0.7 (1.0-1.7) 0.6 (1.0-1.7) O2 Saturation 93 % (92-99) Arterial Blood pH 7.49 (7.35-7.45) Arterial Blood pCO2 at Patient Temp 31 mmHg (35-46) Arterial Blood pO2 at Patient Temp 70 mmHg (75-108) Arterial Blood HCO3 23 mmol/L (21-28) Arterial Blood Base Excess 0 mmol/L (-3-3) FiO2 50 Prealbumin 8.9 mg/dL (16.0-42.0) Test 01/09/19 07:50 O2 Saturation 96 % (92-99) Arterial Blood pH 7.48 (7.35-7.45) Arterial Blood pCO2 at Patient Temp 33 mmHg (35-46) Arterial Blood pO2 at Patient Temp 87 mmHg (75-108) Arterial Blood HCO3 24 mmol/L (21-28) Arterial Blood Base Excess 0 mmol/L (-3-3) FiO2 40 Laboratory Tests Test 01/09/19 03:40 01/09/19 07:50 White Blood Count 8.7 x10^3/uL (4.0-11.0) Red Blood Count 2.32 x10^6/uL (4.30-5.70) Hemoglobin 8.3 g/dL (13.0-17.5) Hematocrit 24.2 % (39.0-53.0) Mean Corpuscular Volume 104 fL (79-100) Mean Corpuscular Hemoglobin 36 pg (25-35) Mean Corpuscular Hemoglobin Concent 34 g/dL (31-37) Red Cell Distribution Width 25.1 % (11.5-14.5) Platelet Count 91 x10^3/uL (140-400) Neutrophils (%) (Auto) 67 % (31-73) Lymphocytes (%) (Auto) 25 % (24-48) Monocytes (%) (Auto) 8 % (0-9) Eosinophils (%) (Auto) 0 % (0-3) Basophils (%) (Auto) 0 % (0-3) Neutrophils # (Auto) 5.9 x10^3/uL (1.8-7.7) Lymphocytes # (Auto) 2.1 x10^3/uL (1.0-4.8) Monocytes # (Auto) 0.7 x10^3/uL (0.0-1.1) Eosinophils # (Auto) 0.0 x10^3/uL (0.0-0.7) Basophils # (Auto) 0.0 x10^3/uL (0.0-0.2) Prothrombin Time 28.9 SEC (11.7-14.0) Prothromb Time International Ratio 2.7 (0.8-1.1) Sodium Level 164 mmol/L (136-145) Potassium Level 2.6 mmol/L (3.5-5.1) Chloride Level 128 mmol/L (98-107) Carbon Dioxide Level 27 mmol/L (21-32) Anion Gap 9 (6-14) Blood Urea Nitrogen 20 mg/dL (8-26) Creatinine 0.9 mg/dL (0.7-1.3) Estimated GFR (Cockcroft-Gault) 91.7 BUN/Creatinine Ratio 22 (6-20) Glucose Level 137 mg/dL (70-99) Calcium Level 7.7 mg/dL (8.5-10.1) Total Bilirubin 15.7 mg/dL (0.2-1.0) Aspartate Amino Transf (AST/SGOT) 288 U/L (15-37) Alanine Aminotransferase (ALT/SGPT) 197 U/L (16-63) Alkaline Phosphatase 84 U/L (46-116) Total Protein 5.3 g/dL (6.4-8.2) Albumin 2.0 g/dL (3.4-5.0) Albumin/Globulin Ratio 0.6 (1.0-1.7) Prealbumin 8.9 mg/dL (16.0-42.0) O2 Saturation 96 % (92-99) Arterial Blood pH 7.48 (7.35-7.45) Arterial Blood pCO2 at Patient Temp 33 mmHg (35-46) Arterial Blood pO2 at Patient Temp 87 mmHg (75-108) Arterial Blood HCO3 24 mmol/L (21-28) Arterial Blood Base Excess 0 mmol/L (-3-3) FiO2 40 Review All relevant outside records, renal labs, imaging studies, telemetry/EKG's were reviewed. Images Images US- 1. Mild hepatomegaly with hepatic steatosis. 2. Distended gallbladder with gallbladder wall thickening and trace pericholecystic fluid with gallbladder sludge. Findings are concerning for acute cholecystitis in appropriate clinical setting. If concern persists further evaluation with HIDA scan is recommended. 3. Caudate lobe mass also seen on CT. Nonemergent MRI of the abdomen with IV contrast is recommended . Right kidney measures 12 cm in length without hydronephrosis. Left kidney measures 12.7 cm in length without hydronephrosis CT scan with IVC 01/04-- 1. Irregular wall thickening of the cecum and ascending colon with surrounding inflammatory type change and fluid. This is most compatible with a severe colitis, could be of ischemic, infectious or inflammatory etiology. Colonic neoplasm not excludable. Milder colitis involving the remaining colon. 2. Mild gallbladder distention with wall thickening and pericholecystic fluid, concerning for cholecystitis. 3. Mild abdominal and pelvic ascites with generalized peritoneal and retroperitoneal inflammatory type stranding and fascial thickening, greatest in the region of the right colon. 4. Liver morphology suggests cirrhosis. 5. There is a 5 cm region of relative hypoattenuation at the base of the caudate lobe, concerning for a hepatic neoplasm. MRI of the liver could further evaluate. 6. Wall thickening of the distal visualized esophagus and duodenum, consider inflammatory or infectious esophagitis and duodenitis. Duodenal ulcer disease could also be considered. 7. Progressive dilution of the distal small bowel contrast column, may be due to ileus or functional obstruction from the colonic pathology discussed above. 8. Findings were discussed with Dr. Perez in the emergency room at the time of this interpretation. APRIL SERVIN MD Jan 09, 2019 12:35
[2019-01-09] MEDS: IV DEXTROSE 5% 1,000 ML IV SCH ×2 (12:46→20:53)
--- NOTE | 2019-01-09 12:52 | PDOC ---
PULMONARY PROGRESS NOTES Subjective on BIPAP,spont breathing, not responsive Vitals Vital Signs Date Time Temp Pulse Resp B/P (MAP) Pulse Ox O2 Delivery O2 Flow Rate FiO2 01/09/19 12:00 99.6 108 20 118/76 (90) 100 BiPAP/CPAP 99.6 01/09/19 04:00 15.0 Lungs: Other (decrease bs) Cardiovascular: S1 Abdomen: Soft Extremities: Other (1+edema) Labs Laboratory Tests Test 01/07/19 18:55 01/08/19 03:55 01/08/19 08:00 01/09/19 03:40 Prothrombin Time 23.9 SEC (11.7-14.0) 23.8 SEC (11.7-14.0) 28.9 SEC (11.7-14.0) Prothromb Time International Ratio 2.2 (0.8-1.1) 2.2 (0.8-1.1) 2.7 (0.8-1.1) Ammonia 28 mcmol/L (11-34) 20 mcmol/L (11-34) White Blood Count 8.7 x10^3/uL (4.0-11.0) 8.7 x10^3/uL (4.0-11.0) Red Blood Count 2.42 x10^6/uL (4.30-5.70) 2.32 x10^6/uL (4.30-5.70) Hemoglobin 8.7 g/dL (13.0-17.5) 8.3 g/dL (13.0-17.5) Hematocrit 25.0 % (39.0-53.0) 24.2 % (39.0-53.0) Mean Corpuscular Volume 104 fL (79-100) 104 fL (79-100) Mean Corpuscular Hemoglobin 36 pg (25-35) 36 pg (25-35) Mean Corpuscular Hemoglobin Concent 35 g/dL (31-37) 34 g/dL (31-37) Red Cell Distribution Width 23.1 % (11.5-14.5) 25.1 % (11.5-14.5) Platelet Count 113 x10^3/uL (140-400) 91 x10^3/uL (140-400) Neutrophils (%) (Auto) 82 % (31-73) 67 % (31-73) Lymphocytes (%) (Auto) 9 % (24-48) 25 % (24-48) Monocytes (%) (Auto) 8 % (0-9) 8 % (0-9) Eosinophils (%) (Auto) 0 % (0-3) 0 % (0-3) Basophils (%) (Auto) 1 % (0-3) 0 % (0-3) Neutrophils # (Auto) 7.1 x10^3/uL (1.8-7.7) 5.9 x10^3/uL (1.8-7.7) Lymphocytes # (Auto) 0.8 x10^3/uL (1.0-4.8) 2.1 x10^3/uL (1.0-4.8) Monocytes # (Auto) 0.7 x10^3/uL (0.0-1.1) 0.7 x10^3/uL (0.0-1.1) Eosinophils # (Auto) 0.0 x10^3/uL (0.0-0.7) 0.0 x10^3/uL (0.0-0.7) Basophils # (Auto) 0.1 x10^3/uL (0.0-0.2) 0.0 x10^3/uL (0.0-0.2) Sodium Level 160 mmol/L (136-145) 164 mmol/L (136-145) Potassium Level 3.0 mmol/L (3.5-5.1) 2.6 mmol/L (3.5-5.1) Chloride Level 122 mmol/L (98-107) 128 mmol/L (98-107) Carbon Dioxide Level 27 mmol/L (21-32) 27 mmol/L (21-32) Anion Gap 11 (6-14) 9 (6-14) Blood Urea Nitrogen 29 mg/dL (8-26) 20 mg/dL (8-26) Creatinine 0.9 mg/dL (0.7-1.3) 0.9 mg/dL (0.7-1.3) Estimated GFR (Cockcroft-Gault) 91.7 91.7 BUN/Creatinine Ratio 32 (6-20) 22 (6-20) Glucose Level 146 mg/dL (70-99) 137 mg/dL (70-99) Calcium Level 8.1 mg/dL (8.5-10.1) 7.7 mg/dL (8.5-10.1) Total Bilirubin 15.2 mg/dL (0.2-1.0) 15.7 mg/dL (0.2-1.0) Aspartate Amino Transf (AST/SGOT) 294 U/L (15-37) 288 U/L (15-37) Alanine Aminotransferase (ALT/SGPT) 176 U/L (16-63) 197 U/L (16-63) Alkaline Phosphatase 103 U/L (46-116) 84 U/L (46-116) Total Protein 6.0 g/dL (6.4-8.2) 5.3 g/dL (6.4-8.2) Albumin 2.5 g/dL (3.4-5.0) 2.0 g/dL (3.4-5.0) Albumin/Globulin Ratio 0.7 (1.0-1.7) 0.6 (1.0-1.7) O2 Saturation 93 % (92-99) Arterial Blood pH 7.49 (7.35-7.45) Arterial Blood pCO2 at Patient Temp 31 mmHg (35-46) Arterial Blood pO2 at Patient Temp 70 mmHg (75-108) Arterial Blood HCO3 23 mmol/L (21-28) Arterial Blood Base Excess 0 mmol/L (-3-3) FiO2 50 Prealbumin 8.9 mg/dL (16.0-42.0) Test 01/09/19 07:50 O2 Saturation 96 % (92-99) Arterial Blood pH 7.48 (7.35-7.45) Arterial Blood pCO2 at Patient Temp 33 mmHg (35-46) Arterial Blood pO2 at Patient Temp 87 mmHg (75-108) Arterial Blood HCO3 24 mmol/L (21-28) Arterial Blood Base Excess 0 mmol/L (-3-3) FiO2 40 Laboratory Tests Test 01/09/19 03:40 01/09/19 07:50 White Blood Count 8.7 x10^3/uL (4.0-11.0) Red Blood Count 2.32 x10^6/uL (4.30-5.70) Hemoglobin 8.3 g/dL (13.0-17.5) Hematocrit 24.2 % (39.0-53.0) Mean Corpuscular Volume 104 fL (79-100) Mean Corpuscular Hemoglobin 36 pg (25-35) Mean Corpuscular Hemoglobin Concent 34 g/dL (31-37) Red Cell Distribution Width 25.1 % (11.5-14.5) Platelet Count 91 x10^3/uL (140-400) Neutrophils (%) (Auto) 67 % (31-73) Lymphocytes (%) (Auto) 25 % (24-48) Monocytes (%) (Auto) 8 % (0-9) Eosinophils (%) (Auto) 0 % (0-3) Basophils (%) (Auto) 0 % (0-3) Neutrophils # (Auto) 5.9 x10^3/uL (1.8-7.7) Lymphocytes # (Auto) 2.1 x10^3/uL (1.0-4.8) Monocytes # (Auto) 0.7 x10^3/uL (0.0-1.1) Eosinophils # (Auto) 0.0 x10^3/uL (0.0-0.7) Basophils # (Auto) 0.0 x10^3/uL (0.0-0.2) Prothrombin Time 28.9 SEC (11.7-14.0) Prothromb Time International Ratio 2.7 (0.8-1.1) Sodium Level 164 mmol/L (136-145) Potassium Level 2.6 mmol/L (3.5-5.1) Chloride Level 128 mmol/L (98-107) Carbon Dioxide Level 27 mmol/L (21-32) Anion Gap 9 (6-14) Blood Urea Nitrogen 20 mg/dL (8-26) Creatinine 0.9 mg/dL (0.7-1.3) Estimated GFR (Cockcroft-Gault) 91.7 BUN/Creatinine Ratio 22 (6-20) Glucose Level 137 mg/dL (70-99) Calcium Level 7.7 mg/dL (8.5-10.1) Total Bilirubin 15.7 mg/dL (0.2-1.0) Aspartate Amino Transf (AST/SGOT) 288 U/L (15-37) Alanine Aminotransferase (ALT/SGPT) 197 U/L (16-63) Alkaline Phosphatase 84 U/L (46-116) Total Protein 5.3 g/dL (6.4-8.2) Albumin 2.0 g/dL (3.4-5.0) Albumin/Globulin Ratio 0.6 (1.0-1.7) Prealbumin 8.9 mg/dL (16.0-42.0) O2 Saturation 96 % (92-99) Arterial Blood pH 7.48 (7.35-7.45) Arterial Blood pCO2 at Patient Temp 33 mmHg (35-46) Arterial Blood pO2 at Patient Temp 87 mmHg (75-108) Arterial Blood HCO3 24 mmol/L (21-28) Arterial Blood Base Excess 0 mmol/L (-3-3) FiO2 40 Medications Active Scripts Medications Dose Route/Sig Max Daily Dose Days Date Category Omeprazole 40 Mg Capsule.dr 1 Cap PO DAILY 01/04/19 Reported Impression . 1. Acute hypoxic respiratory failure secondary to multifactorial etiologies including acute hepatic encephalopathy, sepsis, suspected acute lung injury, risk for aspiration, and acute on chronic hepatic failure. 2. Acute alcoholic hepatic encephalopathy. 3. Acute on chronic liver failure with progressively increasing bilirubin and transaminases. GI is following. 4. Marked lactic acidosis. Likely sepsis, but could be related to type B lactic acidosis from liver failure. 5. Coagulopathy secondary to liver failure. 6. Marked metabolic acidosis on ABGs related to lactic acidosis and hepatic failure. 7. hypernatremia Plan . 1. Discussed with RN. We will continue with present BIPAP 2. prn ABGs and make necessary adjustments. ABG adequate today 3. Correction of metabolic acidosis. no further bicarbonate. 4. Continue broad-spectrum antibiotics. 5. Follow GI recommendation. 6. The patient is currently on octreotide drip. 7. DuoNeb. 8. Alcohol withdrawal precautions. 9. Prognosis is extremely grim. There is also concern for hepatic or colonic malignancy. DNR now 10.Monitor Na, consult renal 11.consider TPN D/W DIVYA VASQUEZ MD Jan 09, 2019 12:52
--- NOTE | 2019-01-09 13:11 | PDOC ---
PROGRESS NOTES Subjective Subjective c/c - f/u of Thrombocytopenia ROS - no bleeding Objective Objective Vital Signs Date Time Temp Pulse Resp B/P (MAP) Pulse Ox O2 Delivery O2 Flow Rate FiO2 01/09/19 12:00 99.6 108 20 118/76 (90) 100 BiPAP/CPAP 99.6 01/09/19 04:00 15.0 Intake and Output 01/09/19 07:00 Intake Total 3873.4 ml Output Total 3595 ml Balance 278.4 ml IV Total 3273.4 ml Other 600 ml Output Urine Total 1695 ml Stool Total 1700 ml Gastric Drainage Total 200 ml Physical Exam Heart: Normal S1, Normal S2 General: No acute distress Lungs: Clear to auscultation Assessment Assessment Problems Medical Problems: (1) Alcoholic liver disease Status: Acute (2) Cholelithiasis Status: Acute (3) Colitis Status: Acute (4) Jaundice Status: Acute (5) Pancreatitis Status: Acute (6) Thrombocytopenia Status: Acute Imp/Plan: 1. Thrombocytopenia. Secondary to liver dysfunction. Improved a little from admission. Plt 113 2. Coagulopathy from liver failure. Given vit k 3. ?hepatic mass. If he improves would eventually get an MRI to further evaluate, but if not would not pursue 4. Liver failure. Most likely secondary to etoh 5. Colitis. On abx as per primary team 6. Anemia, Hb 8.7. monitor cbc. Comment Review of Relevant I have reviewed the following items pierre (where applicable) has been applied. Labs Laboratory Tests Test 01/07/19 18:55 01/08/19 03:55 01/08/19 08:00 01/09/19 03:40 Prothrombin Time 23.9 SEC (11.7-14.0) 23.8 SEC (11.7-14.0) 28.9 SEC (11.7-14.0) Prothromb Time International Ratio 2.2 (0.8-1.1) 2.2 (0.8-1.1) 2.7 (0.8-1.1) Ammonia 28 mcmol/L (11-34) 20 mcmol/L (11-34) White Blood Count 8.7 x10^3/uL (4.0-11.0) 8.7 x10^3/uL (4.0-11.0) Red Blood Count 2.42 x10^6/uL (4.30-5.70) 2.32 x10^6/uL (4.30-5.70) Hemoglobin 8.7 g/dL (13.0-17.5) 8.3 g/dL (13.0-17.5) Hematocrit 25.0 % (39.0-53.0) 24.2 % (39.0-53.0) Mean Corpuscular Volume 104 fL (79-100) 104 fL (79-100) Mean Corpuscular Hemoglobin 36 pg (25-35) 36 pg (25-35) Mean Corpuscular Hemoglobin Concent 35 g/dL (31-37) 34 g/dL (31-37) Red Cell Distribution Width 23.1 % (11.5-14.5) 25.1 % (11.5-14.5) Platelet Count 113 x10^3/uL (140-400) 91 x10^3/uL (140-400) Neutrophils (%) (Auto) 82 % (31-73) 67 % (31-73) Lymphocytes (%) (Auto) 9 % (24-48) 25 % (24-48) Monocytes (%) (Auto) 8 % (0-9) 8 % (0-9) Eosinophils (%) (Auto) 0 % (0-3) 0 % (0-3) Basophils (%) (Auto) 1 % (0-3) 0 % (0-3) Neutrophils # (Auto) 7.1 x10^3/uL (1.8-7.7) 5.9 x10^3/uL (1.8-7.7) Lymphocytes # (Auto) 0.8 x10^3/uL (1.0-4.8) 2.1 x10^3/uL (1.0-4.8) Monocytes # (Auto) 0.7 x10^3/uL (0.0-1.1) 0.7 x10^3/uL (0.0-1.1) Eosinophils # (Auto) 0.0 x10^3/uL (0.0-0.7) 0.0 x10^3/uL (0.0-0.7) Basophils # (Auto) 0.1 x10^3/uL (0.0-0.2) 0.0 x10^3/uL (0.0-0.2) Sodium Level 160 mmol/L (136-145) 164 mmol/L (136-145) Potassium Level 3.0 mmol/L (3.5-5.1) 2.6 mmol/L (3.5-5.1) Chloride Level 122 mmol/L (98-107) 128 mmol/L (98-107) Carbon Dioxide Level 27 mmol/L (21-32) 27 mmol/L (21-32) Anion Gap 11 (6-14) 9 (6-14) Blood Urea Nitrogen 29 mg/dL (8-26) 20 mg/dL (8-26) Creatinine 0.9 mg/dL (0.7-1.3) 0.9 mg/dL (0.7-1.3) Estimated GFR (Cockcroft-Gault) 91.7 91.7 BUN/Creatinine Ratio 32 (6-20) 22 (6-20) Glucose Level 146 mg/dL (70-99) 137 mg/dL (70-99) Calcium Level 8.1 mg/dL (8.5-10.1) 7.7 mg/dL (8.5-10.1) Total Bilirubin 15.2 mg/dL (0.2-1.0) 15.7 mg/dL (0.2-1.0) Aspartate Amino Transf (AST/SGOT) 294 U/L (15-37) 288 U/L (15-37) Alanine Aminotransferase (ALT/SGPT) 176 U/L (16-63) 197 U/L (16-63) Alkaline Phosphatase 103 U/L (46-116) 84 U/L (46-116) Total Protein 6.0 g/dL (6.4-8.2) 5.3 g/dL (6.4-8.2) Albumin 2.5 g/dL (3.4-5.0) 2.0 g/dL (3.4-5.0) Albumin/Globulin Ratio 0.7 (1.0-1.7) 0.6 (1.0-1.7) O2 Saturation 93 % (92-99) Arterial Blood pH 7.49 (7.35-7.45) Arterial Blood pCO2 at Patient Temp 31 mmHg (35-46) Arterial Blood pO2 at Patient Temp 70 mmHg (75-108) Arterial Blood HCO3 23 mmol/L (21-28) Arterial Blood Base Excess 0 mmol/L (-3-3) FiO2 50 Prealbumin 8.9 mg/dL (16.0-42.0) Test 01/09/19 07:50 O2 Saturation 96 % (92-99) Arterial Blood pH 7.48 (7.35-7.45) Arterial Blood pCO2 at Patient Temp 33 mmHg (35-46) Arterial Blood pO2 at Patient Temp 87 mmHg (75-108) Arterial Blood HCO3 24 mmol/L (21-28) Arterial Blood Base Excess 0 mmol/L (-3-3) FiO2 40 Laboratory Tests Test 01/09/19 03:40 01/09/19 07:50 White Blood Count 8.7 x10^3/uL (4.0-11.0) Red Blood Count 2.32 x10^6/uL (4.30-5.70) Hemoglobin 8.3 g/dL (13.0-17.5) Hematocrit 24.2 % (39.0-53.0) Mean Corpuscular Volume 104 fL (79-100) Mean Corpuscular Hemoglobin 36 pg (25-35) Mean Corpuscular Hemoglobin Concent 34 g/dL (31-37) Red Cell Distribution Width 25.1 % (11.5-14.5) Platelet Count 91 x10^3/uL (140-400) Neutrophils (%) (Auto) 67 % (31-73) Lymphocytes (%) (Auto) 25 % (24-48) Monocytes (%) (Auto) 8 % (0-9) Eosinophils (%) (Auto) 0 % (0-3) Basophils (%) (Auto) 0 % (0-3) Neutrophils # (Auto) 5.9 x10^3/uL (1.8-7.7) Lymphocytes # (Auto) 2.1 x10^3/uL (1.0-4.8) Monocytes # (Auto) 0.7 x10^3/uL (0.0-1.1) Eosinophils # (Auto) 0.0 x10^3/uL (0.0-0.7) Basophils # (Auto) 0.0 x10^3/uL (0.0-0.2) Prothrombin Time 28.9 SEC (11.7-14.0) Prothromb Time International Ratio 2.7 (0.8-1.1) Sodium Level 164 mmol/L (136-145) Potassium Level 2.6 mmol/L (3.5-5.1) Chloride Level 128 mmol/L (98-107) Carbon Dioxide Level 27 mmol/L (21-32) Anion Gap 9 (6-14) Blood Urea Nitrogen 20 mg/dL (8-26) Creatinine 0.9 mg/dL (0.7-1.3) Estimated GFR (Cockcroft-Gault) 91.7 BUN/Creatinine Ratio 22 (6-20) Glucose Level 137 mg/dL (70-99) Calcium Level 7.7 mg/dL (8.5-10.1) Total Bilirubin 15.7 mg/dL (0.2-1.0) Aspartate Amino Transf (AST/SGOT) 288 U/L (15-37) Alanine Aminotransferase (ALT/SGPT) 197 U/L (16-63) Alkaline Phosphatase 84 U/L (46-116) Total Protein 5.3 g/dL (6.4-8.2) Albumin 2.0 g/dL (3.4-5.0) Albumin/Globulin Ratio 0.6 (1.0-1.7) Prealbumin 8.9 mg/dL (16.0-42.0) O2 Saturation 96 % (92-99) Arterial Blood pH 7.48 (7.35-7.45) Arterial Blood pCO2 at Patient Temp 33 mmHg (35-46) Arterial Blood pO2 at Patient Temp 87 mmHg (75-108) Arterial Blood HCO3 24 mmol/L (21-28) Arterial Blood Base Excess 0 mmol/L (-3-3) FiO2 40 Microbiology 01/06/19 Blood Culture - Preliminary, Resulted NO GROWTH AFTER 2 DAYS 01/04/19 Urine Culture - Final, Complete 01/04/19 Urine Culture Result 1 (DONALD) - Final, Complete Medications Current Medications Iohexol (Omnipaque 240 Mg/ml) 30 ml 1X ONCE PO Last administered on 01/04/19at 15:15; Start 01/04/19 at 15:15; Stop 01/04/19 at 15:17; Status DC Iohexol (Omnipaque 300 Mg/ml) 75 ml 1X ONCE IV Last administered on 01/04/19at 16:20; Start 01/04/19 at 15:15; Stop 01/04/19 at 15:17; Status DC Info (CONTRAST GIVEN -- Rx MONITORING) 1 each PRN DAILY PRN MC SEE COMMENTS; Start 01/04/19 at 15:30; Stop 01/06/19 at 15:29; Status DC Multivitamins 10 ml/Thiamine HCl 100 mg/Folic Acid 1 mg/Sodium Chloride 1,011.2 ml @ 100 mls/ hr DAILY IV Last administered on 01/08/19at 08:12; Start 01/04/19 at 18:00; Stop 01/08/19 at 19:07; Status DC Chlordiazepoxide (Librium) 50 mg PRN Q1HR PRN PO For CIWA 8-14 Last administered on 01/04/19at 18:17; Start 01/04/19 at 17:45 Chlordiazepoxide (Librium) 100 mg PRN Q1HR PRN PO For CIWA 15 or greater Last administered on 01/05/19at 06:27; Start 01/04/19 at 17:45 Lorazepam (Ativan) 4 mg PRN Q1HR PRN PO For CIWA 8-14 Last administered on 01/04/19at 18:17; Start 01/04/19 at 17:45 Lorazepam (Ativan) 8 mg PRN Q1HR PRN PO For CIWA 15 or greater; Start 01/04/19 at 17:45 Haloperidol Lactate (Haldol Inj) 5 mg PRN Q4HRS PRN IVP Hallucinatns,Confusn,Delirium; Start 01/04/19 at 17:45 Diphenhydramine HCl (Benadryl) 25 mg PRN Q15MIN PRN IVP EPS symptoms 2'Haldol admin; Start 01/04/19 at 17:45 Clonidine HCl (Catapres) 0.1 mg PRN Q1HR PRN PO SBP > 180 or DBP > 100, MRX3 Last administered on 01/08/19at 07:18; Start 01/04/19 at 17:45; Stop 01/08/19 at 08:58; Status DC Lorazepam (Ativan Inj) 2 mg PRN Q1HR PRN IV For CIWA 8-14 Last administered on 01/09/19at 12:59; Start 01/04/19 at 19:15 Lorazepam (Ativan Inj) 4 mg PRN Q1HR PRN IV For CIWA 15 or greater Last administered on 01/05/19at 06:28; Start 01/04/19 at 19:15 Lorazepam (Ativan Inj) 2 mg PRN Q15MIN PRN IV SEE COMMENTS; Start 01/04/19 at 19:15; Status UNV Lorazepam (Ativan Inj) 4 mg PRN Q15MIN PRN IV SEE COMMENTS; Start 01/04/19 at 19:15; Status UNV Ondansetron HCl (Zofran) 4 mg PRN Q6HRS PRN IV NAUSEA/VOMITING Last administered on 01/04/19at 19:34; Start 01/04/19 at 19:30 Pantoprazole Sodium (PROTONIX VIAL for IV PUSH) 40 mg DAILYAC IVP Last administered on 01/06/19at 10:36; Start 01/06/19 at 10:00; Stop 01/06/19 at 12:17; Status DC Phytonadione (Vitamin K Ampule) 10 mg 1X ONCE SQ Last administered on at 10:36; Start 01/06/19 at 10:15; Stop 01/06/19 at 10:16; Status DC Piperacillin Sod/ Tazobactam Sod (Zosyn Per Pharmacy) 1 each PRN DAILY PRN MC SEE COMMENTS; Start 01/06/19 at 10:30 Piperacillin Sod/ Tazobactam Sod 3.375 gm/Sodium Chloride 50 ml @ 100 mls/hr Q6HRS IV Last administered on 01/09/19at 11:14; Start 01/06/19 at 11:00 Lactulose (Lactulose) 30 gm Q6HRS NG Last administered on 01/09/19at 05:53; Start 01/06/19 at 12:00; Stop 01/09/19 at 10:51; Status DC Metronidazole 100 ml @ 100 mls/hr Q8HRS IV Last administered on 01/09/19at 05:53; Start 01/06/19 at 14:00; Stop 01/09/19 at 07:19; Status DC Pantoprazole Sodium 80 mg/ Sodium Chloride 100 ml @ 10 mls/hr Q10H IV Last administered on 01/09/19at 06:14; Start 01/06/19 at 12:30 Octreotide Acetate 500 mcg/ Sodium Chloride 101 ml @ 0 mls/hr CONT PRN IV SEE I/O RECORD Last administered on 01/08/19at 06:08; Start 01/06/19 at 12:15; Stop 01/08/19 at 10:48; Status DC Norepinephrine Bitartrate 250 ml @ 14.235 mls/ hr CONT PRN IV SEE I/O RECORD; Start 01/06/19 at 20:15 Albumin Human 100 ml @ 100 mls/hr 1X ONCE IV Last administered on 01/06/19at 21:30; Start 01/06/19 at 20:15; Stop 01/06/19 at 21:14; Status DC Phytonadione (Vitamin K Ampule) 10 mg 1X ONCE SQ Last administered on 01/07/19at 13:04; Start 01/07/19 at 11:45; Stop 01/07/19 at 11:46; Status DC Albuterol/ Ipratropium (Duoneb) 3 ml RTQID NEB Last administered on 01/09/19at 11:47; Start 01/07/19 at 16:00 Sodium Chloride 1,000 ml @ 75 mls/hr [id number] IV Last administered on 01/08/19at 23:47; Start 01/08/19 at 06:00; Stop 01/09/19 at 10:19; Status DC Labetalol HCl (Normodyne Iv Push) 10 mg PRN Q4HRS PRN IVP HYPERTENSION; Start 01/08/19 at 09:00 Potassium Bicarbonate (Potassium Effervescent Tablet) 40 meq 1X ONCE PEG Last administered on 01/08/19at 12:24; Start 01/08/19 at 11:30; Stop 01/08/19 at 11:33; Status DC Potassium Bicarbonate (Potassium Effervescent Tablet) 40 meq 1X ONCE PEG Last administered on 01/08/19at 16:06; Start 01/08/19 at 16:00; Stop 01/08/19 at 16:01; Status DC Potassium Bicarbonate (Potassium Effervescent Tablet) 80 meq 1X ONCE PEG Last administered on 01/09/19at 06:58; Start 01/09/19 at 06:15; Stop 01/09/19 at 06:21; Status DC Artificial Tears (Artificial Tears) 1 drop PRN Q15MIN PRN OU DRY EYE Last administered on 01/09/19at 10:11; Start 01/09/19 at 10:00 Dextrose/Sodium Chloride 1,000 ml @ 75 mls/hr [id number] IV Last administered on 01/09/19at 11:03; Start 01/09/19 at 10:30; Stop 01/09/19 at 12:20; Status DC Potassium Chloride/Water 50 ml @ 50 mls/hr Q1H IV ; Start 01/09/19 at 10:30; Stop 01/09/19 at 12:29; Status UNV Potassium Chloride/Water 100 ml @ 100 mls/hr Q1H IV ; Start 01/09/19 at 11:00; Stop 01/09/19 at 11:00; Status DC Lactulose (Lactulose) 30 gm BID NG ; Start 01/09/19 at 21:00 Dextrose 1,000 ml @ 125 mls/hr Q8H IV Last administered on 01/09/19at 12:46; Start 01/09/19 at 12:30 Active Scripts Active Reported Omeprazole 40 Mg Capsule.dr Warren Cap PO DAILY Vitals/I & O Vital Sign - Last 24 Hours 01/08/19 01/08/19 01/08/19 01/08/19 14:00 15:00 15:50 16:00 Temp 99.2 99.2 Pulse 108 109 104 Resp 20 20 20 B/P (MAP) 138/72 (94) 134/83 (100) 102/60 (74) Pulse Ox 100 100 98 99 O2 Delivery BiPAP/CPAP BiPAP/CPAP BiPAP/CPAP BiPAP/CPAP 01/08/19 01/08/19 01/08/19 01/08/19 16:12 17:00 18:00 19:00 Pulse 109 110 110 Resp 20 20 20 B/P (MAP) 110/63 (79) 96/59 (71) 123/75 (91) Pulse Ox 100 98 100 O2 Delivery Bi-pap BiPAP/CPAP BiPAP/CPAP BiPAP/CPAP 01/08/19 01/08/19 01/08/19 01/08/19 19:38 20:00 20:00 20:00 Temp 99.3 99.3 Pulse 117 Resp 20 B/P (MAP) 123/75 (91) Pulse Ox 100 100 O2 Delivery BiPAP/CPAP BiPAP/CPAP Bi-pap O2 Flow Rate 15.0 01/08/19 01/08/19 01/08/19 01/08/19 21:00 21:00 22:00 23:00 Pulse 104 112 100 Resp 20 23 20 B/P (MAP) 114/69 (84) 115/68 (84) 112/63 (79) Pulse Ox 100 100 100 100 O2 Delivery BiPAP/CPAP BiPAP/CPAP BiPAP/CPAP BiPAP/CPAP 01/08/19 01/08/19 01/09/19 01/09/19 23:57 23:59 00:00 00:01 Temp 99.7 99.7 Pulse 98 Resp 20 B/P (MAP) 125/67 (86) Pulse Ox 100 98 O2 Delivery BiPAP/CPAP Bi-pap BiPAP/CPAP O2 Flow Rate 15.0 01/09/19 01/09/19 01/09/19 01/09/19 01:00 02:00 02:30 03:00 Pulse 118 105 107 Resp 22 20 22 B/P (MAP) 123/68 (86) 136/88 (104) 139/86 (103) Pulse Ox 97 95 100 99 O2 Delivery BiPAP/CPAP BiPAP/CPAP BiPAP/CPAP BiPAP/CPAP 01/09/19 01/09/19//01/09/19 04:00 04:00 04:00 05:00 Temp 99.7 99.7 Pulse 104 102 Resp 22 22 B/P (MAP) 118/77 (91) 131/86 (101) Pulse Ox 99 99 O2 Delivery Bi-pap BiPAP/CPAP BiPAP/CPAP O2 Flow Rate 15.0 01/09/19 01/09/19//01/09/19 05:15 06:00 07:00 07:50 Pulse 102 104 Resp 22 18 B/P (MAP) 113/73 (86) 127/80 (96) Pulse Ox 98 97 100 99 O2 Delivery BiPAP/CPAP BiPAP/CPAP BiPAP/CPAP BiPAP/CPAP 01/09/19 01/09/19//01/09/19 08:00 08:00 09:00 10:00 Temp 99.7 99.7 Pulse 112 117 106 Resp 20 20 20 B/P (MAP) 135/86 (102) 132/88 (103) 111/75 (87) Pulse Ox 100 100 100 O2 Delivery BiPAP/CPAP Bi-pap BiPAP/CPAP BiPAP/CPAP 01/09/19 01/09/19 01/09/19 01/09/19 11:00 11:48 12:00 12:00 Temp 99.6 99.6 Pulse 107 108 Resp 20 20 B/P (MAP) 113/70 (84) 118/76 (90) Pulse Ox 100 100 100 O2 Delivery BiPAP/CPAP BiPAP/CPAP Bi-pap BiPAP/CPAP Intake and Output 01/08/19 01/08/19 01/09/19 15:00 23:00 07:00 Intake Total 558 ml 2681 ml 634.4 ml Output Total 680 ml 1775 ml 1140 ml Balance -122 ml 906 ml -505.6 ml ISHAAN GIFFORD MD Jan 09, 2019 13:11
--- NOTE | 2019-01-09 14:07 | RAD ---
Indication:Central line placement check. TECHNIQUE:Portable AP chest X-ray COMPARISON: 01/07/2019 FINDINGS: NG tube is seen with its tip in the distal stomach. Heart is normal in size. No placement of right IJ catheter with its tip in the right atrium and should be withdrawn by approximately 3 cm. Lungs are clear. No pneumothorax or pleural effusion. Visualized bony thorax is within normal limits. IMPRESSION: Low-lying right IJ catheter. Please withdraw by 2-3 cm. Electronically signed by: Denzel Barakat DO (01/09/2019 2:04 PM) [facility]
--- NOTE | 2019-01-09 14:12 | PDOC ---
PROGRESS NOTES Assessment Assessment Lethargy. Metabolic encephalopathy. Toxic encephalopathy. Respiratory failure. Alcohol intoxication. Lactic acidosis. Hepatic Injury. Elevated ammonia level. Thrombocytopenia. Coagulopathy, elevated PT/INR related to hepatic disease likely. Cirrhosis. Colitis. HTN. Substances abuse, alcohol. RECOMMENDATIONS/PLAN: EEG. Vit B1. Treat medical and hematologic diseases. ID on team. HCT w/o contrast on 01/07/19: negative without ICH. HISTORY OF THE PRESENT ILLNESS: This is a 43-year-old male with history of alcohol abuse went unresponsive status. According to his family, he has a history of drinking alcohol heavily in the last 22 years, averaging 30-60 beers a day. Over the last year, he has been depressed, shaky and not well-coordinated with falls. He could not work regularly. He tried to quit drinking a few times but but failed maintain abstinence. He had nosebleeds, blood in urine and skin and soft tissue bruises. He has been unresponsiveness since here. His daughter says he has lost about 50 pounds in a span of 3 month period last year. 01/09/19: No obvious improvement mentally. PAST MEDICAL HISTORY: Depression, hypertension, GERD, panic attacks. PAST SURGICAL HISTORY: No significant past surgical history. SOCIAL HISTORY: The patient is and lives at home. Used to work at a [employer] shop and [employer]. He migrated to the [place] from [place] about 19 years ago. He has 2 daughters. Heavy alcohol as mentioned above. FAMILY HISTORY: Noncontributory. ALLERGIES: No known drug allergies. REVIEW OF SYSTEMS: Refer to PMH and PSH. Otherwise, all other review of systems limited as the patient is [facility]. PHYSICAL EXAMINATION: General appearance is in subacute distress. HEENT: Normocephalic and nontraumatic. Eyes, nose, ears, and throat are unremarkable. Neck is supple. No lymphadenopathy. No crepitus. Cardiovascular: S1, S2, regular rate and rhythm. Pulmonary: On .. Abdomen: Bowel sounds are positive. Extremities: Bruises in extremities. No restriction of range of motion NEUROLOGICAL EXAMINATION: Unresponsiveness. Not oriented to time, place and person. PERRL. EOMI not elicited. CN: no focal findings. Muscle tone: Decreased. Muscle strength: No movements to stimuli. DTR: 1- Plantar reflex: No response bilaterally Gait: not able to walk. Sensory exam: no response.. Not able to access cerebellar signs. F-T-N test not performed. Objective Objective Vital Signs Date Time Temp Pulse Resp B/P (MAP) Pulse Ox O2 Delivery O2 Flow Rate FiO2 01/09/19 14:00 98 20 117/81 (93) 100 BiPAP/CPAP 01/09/19 12:00 99.6 99.6 01/09/19 04:00 15.0 Intake and Output 01/09/19 07:00 Intake Total 3873.4 ml Output Total 3595 ml Balance 278.4 ml IV Total 3273.4 ml Other 600 ml Output Urine Total 1695 ml Stool Total 1700 ml Gastric Drainage Total 200 ml Vitals Signs Vitals VS - Last 72 Hours, by Label Date Time Temp Pulse Resp B/P (MAP) Pulse Ox O2 Delivery O2 Flow Rate FiO2 01/09/19 14:00 98 20 117/81 (93) 100 BiPAP/CPAP 01/09/19 13:00 108 20 120/85 (97) 100 BiPAP/CPAP 01/09/19 12:00 99.6 108 20 118/76 (90) 100 BiPAP/CPAP 99.6 01/09/19 12:00 Bi-pap 01/09/19 11:48 100 BiPAP/CPAP 01/09/19 11:00 107 20 113/70 (84) 100 BiPAP/CPAP 01/09/19 10:00 106 20 111/75 (87) 100 BiPAP/CPAP 01/09/19 09:00 117 20 132/88 (103) 100 BiPAP/CPAP 01/09/19 08:00 Bi-pap 01/09/19 08:00 99.7 112 20 135/86 (102) 100 BiPAP/CPAP 99.7 01/09/19 07:50 99 BiPAP/CPAP 01/09/19 07:00 104 18 127/80 (96) 100 BiPAP/CPAP 01/09/19 06:00 102 22 113/73 (86) 97 BiPAP/CPAP 01/09/19 05:15 98 BiPAP/CPAP 01/09/19 05:00 102 22 131/86 (101) 99 BiPAP/CPAP 01/09/19 04:00 15.0 01/09/19 04:00 99.7 104 22 118/77 (91) 99 BiPAP/CPAP 99.7 01/09/19 04:00 Bi-pap 01/09/19 03:00 107 22 139/86 (103) 99 BiPAP/CPAP 01/09/19 02:30 100 BiPAP/CPAP 01/09/19 02:00 105 20 136/88 (104) 95 BiPAP/CPAP 01/09/19 01:00 118 22 123/68 (86) 97 BiPAP/CPAP 01/09/19 00:01 99.7 98 20 125/67 (86) 98 BiPAP/CPAP 99.7 01/09/19 00:00 15.0 01/08/19 23:59 Bi-pap 01/08/19 23:57 100 BiPAP/CPAP 01/08/19 23:00 100 20 112/63 (79) 100 BiPAP/CPAP 01/08/19 22:00 112 23 115/68 (84) 100 BiPAP/CPAP 01/08/19 21:00 104 20 114/69 (84) 100 BiPAP/CPAP 01/08/19 21:00 100 BiPAP/CPAP 01/08/19 20:00 Bi-pap 01/08/19 20:00 99.3 117 20 123/75 (91) 100 BiPAP/CPAP 99.3 01/08/19 20:00 15.0 01/08/19 19:38 100 BiPAP/CPAP 01/08/19 19:00 110 20 123/75 (91) 100 BiPAP/CPAP 01/08/19 18:00 110 20 96/59 (71) 98 BiPAP/CPAP 01/08/19 17:00 109 20 110/63 (79) 100 BiPAP/CPAP 01/08/19 16:12 Bi-pap 01/08/19 16:00 99.2 104 20 102/60 (74) 99 BiPAP/CPAP 99.2 01/08/19 15:50 98 BiPAP/CPAP 01/08/19 15:00 109 20 134/83 (100) 100 BiPAP/CPAP 01/08/19 14:00 108 20 138/72 (94) 100 BiPAP/CPAP 01/08/19 13:01 112 25 135/72 (93) 100 BiPAP/CPAP 01/08/19 12:20 98 BiPAP/CPAP 01/08/19 12:00 112 25 138/73 (94) 100 BiPAP/CPAP 01/08/19 12:00 Bi-pap 01/08/19 11:01 112 20 132/76 (94) 100 BiPAP/CPAP 01/08/19 10:00 99.0 113 20 138/75 (96) 97 BiPAP/CPAP 99.0 01/08/19 09:00 113 23 140/74 (96) 100 BiPAP/CPAP 01/08/19 08:28 98 BiPAP/CPAP 01/08/19 08:03 113 23 103/69 (80) 100 BiPAP/CPAP 01/08/19 08:00 15.0 01/08/19 07:54 Bi-pap 01/08/19 07:18 120 170/97 01/08/19 07:00 100.5 120 22 170/97 (121) 100 100.5 Laboratory Laboratory Laboratory Tests Test 01/09/19 03:40 01/09/19 07:50 White Blood Count 8.7 x10^3/uL (4.0-11.0) Red Blood Count 2.32 x10^6/uL (4.30-5.70) Hemoglobin 8.3 g/dL (13.0-17.5) Hematocrit 24.2 % (39.0-53.0) Mean Corpuscular Volume 104 fL (79-100) Mean Corpuscular Hemoglobin 36 pg (25-35) Mean Corpuscular Hemoglobin Concent 34 g/dL (31-37) Red Cell Distribution Width 25.1 % (11.5-14.5) Platelet Count 91 x10^3/uL (140-400) Neutrophils (%) (Auto) 67 % (31-73) Lymphocytes (%) (Auto) 25 % (24-48) Monocytes (%) (Auto) 8 % (0-9) Eosinophils (%) (Auto) 0 % (0-3) Basophils (%) (Auto) 0 % (0-3) Neutrophils # (Auto) 5.9 x10^3/uL (1.8-7.7) Lymphocytes # (Auto) 2.1 x10^3/uL (1.0-4.8) Monocytes # (Auto) 0.7 x10^3/uL (0.0-1.1) Eosinophils # (Auto) 0.0 x10^3/uL (0.0-0.7) Basophils # (Auto) 0.0 x10^3/uL (0.0-0.2) Prothrombin Time 28.9 SEC (11.7-14.0) Prothromb Time International Ratio 2.7 (0.8-1.1) Sodium Level 164 mmol/L (136-145) Potassium Level 2.6 mmol/L (3.5-5.1) Chloride Level 128 mmol/L (98-107) Carbon Dioxide Level 27 mmol/L (21-32) Anion Gap 9 (6-14) Blood Urea Nitrogen 20 mg/dL (8-26) Creatinine 0.9 mg/dL (0.7-1.3) Estimated GFR (Cockcroft-Gault) 91.7 BUN/Creatinine Ratio 22 (6-20) Glucose Level 137 mg/dL (70-99) Calcium Level 7.7 mg/dL (8.5-10.1) Total Bilirubin 15.7 mg/dL (0.2-1.0) Aspartate Amino Transf (AST/SGOT) 288 U/L (15-37) Alanine Aminotransferase (ALT/SGPT) 197 U/L (16-63) Alkaline Phosphatase 84 U/L (46-116) Total Protein 5.3 g/dL (6.4-8.2) Albumin 2.0 g/dL (3.4-5.0) Albumin/Globulin Ratio 0.6 (1.0-1.7) Prealbumin 8.9 mg/dL (16.0-42.0) O2 Saturation 96 % (92-99) Arterial Blood pH 7.48 (7.35-7.45) Arterial Blood pCO2 at Patient Temp 33 mmHg (35-46) Arterial Blood pO2 at Patient Temp 87 mmHg (75-108) Arterial Blood HCO3 24 mmol/L (21-28) Arterial Blood Base Excess 0 mmol/L (-3-3) FiO2 40 Microbiology 01/06/19 Blood Culture - Preliminary, Resulted NO GROWTH AFTER 2 DAYS 01/04/19 Urine Culture - Final, Complete 01/04/19 Urine Culture Result 1 (DONALD) - Final, Complete Medication Medications Current Medications Artificial Tears (Artificial Tears) 1 drop PRN Q15MIN PRN OU DRY EYE Last administered on 01/09/19at 10:11; Start 01/09/19 at 10:00 Dextrose 1,000 ml @ 125 mls/hr Q8H IV Last administered on 01/09/19at 12:46; Start 01/09/19 at 12:30 Dextrose/Sodium Chloride 1,000 ml @ 75 mls/hr [id number] IV Last administered on 01/09/19at 11:03; Start 01/09/19 at 10:30; Stop 01/09/19 at 12:20; Status DC Lactulose (Lactulose) 30 gm BID NG ; Start 01/09/19 at 21:00 Potassium Bicarbonate (Potassium Effervescent Tablet) 40 meq 1X ONCE PEG Last administered on 01/08/19at 16:06; Start 01/08/19 at 16:00; Stop 01/08/19 at 16:01; Status DC Potassium Bicarbonate (Potassium Effervescent Tablet) 80 meq 1X ONCE PEG Last administered on 01/09/19at 06:58; Start 01/09/19 at 06:15; Stop 01/09/19 at 06:21; Status DC Potassium Chloride/Water 50 ml @ 50 mls/hr Q1H IV ; Start 01/09/19 at 10:30; Stop 01/09/19 at 12:29; Status UNV Potassium Chloride/Water 100 ml @ 100 mls/hr Q1H IV ; Start 01/09/19 at 11:00; Stop 01/09/19 at 11:00; Status DC Comment Review of Relevant I have reviewed the following items pierre (where applicable) has been applied. MAGY BLUE MD Jan 09, 2019 14:12
--- NOTE | 2019-01-09 14:46 | NUR ---
IR came back and withdrew central line 2-3cm per CXR. OK to use per Dr Dominguez.
[2019-01-09] MEDS: TPN PER PHARMACY MC PRN (16:16)
--- NOTE | 2019-01-09 16:19 | NUR ---
Pharmacy TPN Dosing Note S: NILAM PIRES is a 43 year old M Currently receiving Central Continuous TPN started 01/09/19 B:Pertinent PMH: npo Height: 5 feet, 7 inches Weight: 74.708030 kg Current diet: npo LABS: Sodium: 164 Potassium: 2.6 Chloride: 128 Calcium: 7.7 Corrected Calcium: 9.30 Magnesium: CO2: 27 SCr: 0.9 Glucose: 137 Albumin: 2.0 AST: 288 ALT: 197 TPN FORMULA: TPN TYPE: Central Continuous AMINO ACIDS: 60 gm DEXTROSE: 195 gm LIPIDS: 20 gm SODIUM CHLORIDE: mEq SODIUM ACETATE: mEq SODIUM PHOSPHATE: mmol POTASSIUM CHLORIDE: 50 mEq POTASSIUM ACETATE: mEq POTASSIUM PHOSPHATE: 13.6 mmol MAGNESIUM: 10 mEq CALCIUM: 10 mEq INSULIN: units MULTIPLE VITAMIN: 10 ml TRACE ELEMENTS: 1ml ml(s) TPN PLAN: start standard tpn minus sodium. R: Begin TPN as ordered Will monitor electrolytes, glucose, and tolerance to TPN. REX CHILDS, [facility], 01/09/19 [id number]
[2019-01-09 16:56] LABS: MAGNESIUM 2.3 mg/dL (1.8-2.4)
[2019-01-09] MEDS: POTASSIUM CHL 20MEQ PREMIX 50 ML IV SCH ×4 (17:28→20:51)
[2019-01-09] MEDS ORDERED: AMINO ACID IV SCH ×9 (22:00)
[2019-01-09] MEDS ORDERED: [UNRECOGNIZED DRUG - OTHER] IV SCH ×9 (22:00)
[2019-01-09] MEDS ORDERED: TOTAL PARENTERAL NUTRITION IV SCH ×9 (22:00)
[2019-01-09] MEDS ORDERED: DEXTROSE 70% IV SCH ×9 (22:00)
[2019-01-09] MEDS ORDERED: POTASSIUM PHOSPHATE DIBASIC IV ONE (22:00)
[2019-01-09] MEDS ORDERED: DEXTROSE 5% IV ONE (22:00)
[2019-01-10] VITALS (24 sets, daily range): BP systolic 99–134; BP diastolic 63–90
[2019-01-10] MEDS: PIPERACILLIN/TAZOBACTAM 3.375 GM in IV NORMAL SALINE 50ML 50 ML IV SCH ×5 (02:02→23:30)
[2019-01-10] MEDS: PANTOPRAZOLE SODIUM IV DRIP 80 MG in IV NORMAL SALINE 100ML 100 ML IV SCH (02:31)
[2019-01-10 06:28] LABS: BASO % 0 % (0-3); EOS # 0.3 x10^3/uL (0.0-0.7); EOS % 3 % (0-3); HEMATOCRIT 22.9 % (39.0-53.0); HEMOGLOBIN 7.7 g/dL (13.0-17.5); LYMPH # 2.4 x10^3/uL (1.0-4.8); LYMPH % 23 % (24-48); MEAN CORPUSCULAR HEMOGLOBIN 36 pg (25-35); MEAN CORPUSCULAR HGB CONC 34 g/dL (31-37); MEAN CORPUSCULAR VOLUME 106 fL (79-100); MONO # 0.9 x10^3/uL (0.0-1.1); MONO % 9 % (0-9); NEUT # 6.7 x10^3/uL (1.8-7.7); NEUT % 65 % (31-73); PLATELET COUNT 80 x10^3/uL (140-400); RED BLOOD COUNT 2.16 x10^6/uL (4.30-5.70); RED CELL DISTRIBUTION WIDTH 24.9 % (11.5-14.5); WHITE BLOOD COUNT 10.3 x10^3/uL (4.0-11.0)
[2019-01-10 06:48] LABS: ALBUMIN 1.7 g/dL (3.4-5.0); ALBUMIN/GLOBULIN RATIO 0.5 (1.0-1.7); CALCIUM 7.6 mg/dL (8.5-10.1); CREATININE 0.9 mg/dL (0.7-1.3); GFR 91.7; MAGNESIUM 2.2 mg/dL (1.8-2.4); PHOSPHORUS 1.9 mg/dL (2.6-4.7); TOTAL BILIRUBIN 14.4 mg/dL (0.2-1.0); TOTAL PROTEIN 4.9 g/dL (6.4-8.2)
[2019-01-10 06:52] LABS: POTASSIUM 2.8 mmol/L (3.5-5.1)
[2019-01-10 07:09] LABS: PROTHROMBIN TIME PATIENT 25.4 SEC (11.7-14.0)
--- NOTE | 2019-01-10 07:49 | PDOC2 ---
PALLIATIVE CARE Palliative Care Note Palliative Care Patient more alert today. Is able to hold some conversation. No family at beside. Will continue with aggressive treatment. LOERE CYR Jan 10, 2019 07:49
--- NOTE | 2019-01-10 07:54 | PDOC ---
Infectious Disease Note Subjective Subjective Alert - Denies F/C/S/PATTON/SOA Vital Sign Vital Signs Vital Signs Date Time Temp Pulse Resp B/P (MAP) Pulse Ox O2 Delivery O2 Flow Rate FiO2 01/10/19 06:00 94 25 124/78 (93) 95 Room Air 01/10/19 04:00 98.6 98.6 01/10/19 04:00 15.0 Physical Exam PHYSICAL EXAM GEN: alert and comfortable HEENT: Pupils equally round and reactive. Icterus. NG tube in place -mouth is dry NECK: Supple. LUNGS: decreased in bases HEART: S1 and S2 regular ABDOMEN: Mildly distended, soft, no grimace or guarding to palpation. Bowel sounds present. Rectal tube GENITOURINARY: Indwelling Galdamez in place. Urine is dark and concentrated. EXTREMITIES: No gross edema or cyanosis IVS: RIJ -clean SKIN: Warm to touch. He has multiple ecchymoses, especially lower extremities. NEUROLOGIC: Alert and follows simple commands Labs Lab Laboratory Tests Test 01/09/19 07:50 01/09/19 16:15 01/09/19 16:52 01/10/19 05:50 O2 Saturation 96 % (92-99) Arterial Blood pH 7.48 (7.35-7.45) Arterial Blood pCO2 at Patient Temp 33 mmHg (35-46) Arterial Blood pO2 at Patient Temp 87 mmHg (75-108) Arterial Blood HCO3 24 mmol/L (21-28) Arterial Blood Base Excess 0 mmol/L (-3-3) FiO2 40 Potassium Level 2.7 mmol/L (3.5-5.1) 2.8 mmol/L (3.5-5.1) Phosphorus Level 2.0 mg/dL (2.6-4.7) 1.9 mg/dL (2.6-4.7) Magnesium Level 2.3 mg/dL (1.8-2.4) 2.2 mg/dL (1.8-2.4) Triglycerides Level 69 mg/dL (0-150) Glucose (Fingerstick) 149 mg/dL (70-99) White Blood Count 10.3 x10^3/uL (4.0-11.0) Red Blood Count 2.16 x10^6/uL (4.30-5.70) Hemoglobin 7.7 g/dL (13.0-17.5) Hematocrit 22.9 % (39.0-53.0) Mean Corpuscular Volume 106 fL (79-100) Mean Corpuscular Hemoglobin 36 pg (25-35) Mean Corpuscular Hemoglobin Concent 34 g/dL (31-37) Red Cell Distribution Width 24.9 % (11.5-14.5) Platelet Count 80 x10^3/uL (140-400) Neutrophils (%) (Auto) 65 % (31-73) Lymphocytes (%) (Auto) 23 % (24-48) Monocytes (%) (Auto) 9 % (0-9) Eosinophils (%) (Auto) 3 % (0-3) Basophils (%) (Auto) 0 % (0-3) Neutrophils # (Auto) 6.7 x10^3/uL (1.8-7.7) Lymphocytes # (Auto) 2.4 x10^3/uL (1.0-4.8) Monocytes # (Auto) 0.9 x10^3/uL (0.0-1.1) Eosinophils # (Auto) 0.3 x10^3/uL (0.0-0.7) Basophils # (Auto) 0.0 x10^3/uL (0.0-0.2) Sodium Level 162 mmol/L (136-145) Chloride Level 127 mmol/L (98-107) Carbon Dioxide Level 27 mmol/L (21-32) Anion Gap 8 (6-14) Blood Urea Nitrogen 17 mg/dL (8-26) Creatinine 0.9 mg/dL (0.7-1.3) Estimated GFR (Cockcroft-Gault) 91.7 BUN/Creatinine Ratio 19 (6-20) Glucose Level 130 mg/dL (70-99) Calcium Level 7.6 mg/dL (8.5-10.1) Total Bilirubin 14.4 mg/dL (0.2-1.0) Aspartate Amino Transf (AST/SGOT) 169 U/L (15-37) Alanine Aminotransferase (ALT/SGPT) 155 U/L (16-63) Alkaline Phosphatase 80 U/L (46-116) Total Protein 4.9 g/dL (6.4-8.2) Albumin 1.7 g/dL (3.4-5.0) Albumin/Globulin Ratio 0.5 (1.0-1.7) Micro Microbiology 01/06/19 Blood Culture - Preliminary, Resulted NO GROWTH AFTER 1 DAY 01/04/19 Urine Culture - Final, Complete 01/04/19 Urine Culture Result 1 (DONALD) - Final, Complete Objective Assessment Fever resolved Leukocytosis - better Thrombocytopenia Transaminitis - better Multi-Organ Failure -stable ? 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
[2019-01-10] MEDS ORDERED: SODIUM PHOSPHATE 40 MMOL in IV DEXTROSE 5% 250 ML IV ONE (08:00)
[2019-01-10] MEDS: POTASSIUM CHL 20MEQ PREMIX 50 ML IV SCH ×4 (08:20→11:41)
[2019-01-10] MEDS: IPRATRPIUM/ALBUTEROL 0.5/2.5MG 3 ML NEBU. NEB SCH ×4 (08:47→20:08)
--- NOTE | 2019-01-10 10:16 | PDOC ---
SUBJECTIVE ROS Awake this am,alert to name , knows his date of , doesn't know the year or place confused OBJECTIVE Vital Signs Vital Signs Date Time Temp Pulse Resp B/P (MAP) Pulse Ox O2 Delivery O2 Flow Rate FiO2 01/10/19 09:00 92 22 125/85 (98) 97 Room Air 01/10/19 08:00 98.8 98.8 01/10/19 04:00 15.0 I & 0 Intake and Output 01/10/19 07:00 Intake Total 3989.08 ml Output Total 2010 ml Balance 1979.08 ml IV Total 3989.08 ml Output Urine Total 1110 ml Stool Total 300 ml Gastric Drainage Total 400 ml Other 200 ml PHYSICAL EXAM Physical Exam GENERAL: lethargic on Bipap HEENT: Icterus. NG tube in place NECK: Supple. LUNGS: decreased in bases HEART: S1 and S2 regular ABDOMEN: Mildly distended, soft, GENITOURINARY: Indwelling Galdamez in place. Urine dark and concentrated. EXTREMITIES: No gross edema or cyanosis SKIN: multiple ecchymoses,no rash . NEUROLOGIC: unresponsive. 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 - CT head -neg Was getting Lactulose , recommend holding if GI agrees - Ammonia normal now Coagulopathy - S/p FFP and Vit K Pancreatitis, lipase >3400 Hepatic mass Possible cholecystitis on U/S COMMENT/RELEVANT DATA Meds Current Medications Medications (Trade) Dose Ordered Sig/Amrik Start Time Stop Time Status Last Admin Dose Admin Albumin Human 100 ml @ 100 mls/hr 1X ONCE 01/06/19 20:15 01/06/19 21:14 DC 01/06/19 21:30 100 MLS/HR Albuterol/ Ipratropium (Duoneb) 3 ml RTQID 01/07/19 16:00 01/10/19 08:47 3 ML Artificial Tears (Artificial Tears) 1 drop PRN Q15MIN PRN 01/09/19 10:00 01/09/19 10:11 1 DROP Chlordiazepoxide (Librium) 100 mg PRN Q1HR PRN 01/04/19 17:45 01/05/19 06:27 100 MG Clonidine HCl (Catapres) 0.1 mg PRN Q1HR PRN 01/04/19 17:45 01/08/19 08:58 DC 01/08/19 07:18 0.1 MG Dextrose 1,000 ml @ 75 mls/hr [id number] 01/09/19 12:30 01/09/19 20:53 75 MLS/HR Dextrose/Sodium Chloride 1,000 ml @ 75 mls/hr [id number] 01/09/19 10:30 01/09/19 12:20 DC 01/09/19 11:03 75 MLS/HR Diphenhydramine HCl (Benadryl) 25 mg PRN Q15MIN PRN 01/04/19 17:45 Haloperidol Lactate (Haldol Inj) 5 mg PRN Q4HRS PRN 01/04/19 17:45 Info (CONTRAST GIVEN -- Rx MONITORING) 1 each PRN DAILY PRN 01/04/19 15:30 01/06/19 15:29 DC Info (Tpn Per Pharmacy) 1 each PRN DAILY PRN 01/09/19 15:15 01/09/19 16:16 1 EACH Iohexol (Omnipaque 240 Mg/ml) 30 ml 1X ONCE 01/04/19 15:15 01/04/19 15:17 DC 01/04/19 15:15 30 ML Iohexol (Omnipaque 300 Mg/ml) 75 ml 1X ONCE 01/04/19 15:15 01/04/19 15:17 DC 01/04/19 16:20 75 ML Labetalol HCl (Normodyne Iv Push) 10 mg PRN Q4HRS PRN 01/08/19 09:00 Lactulose (Lactulose) 30 gm BID 01/09/19 21:00 01/09/19 20:52 30 GM Lorazepam (Ativan Inj) 4 mg PRN Q15MIN PRN 01/04/19 19:15 UNV Lorazepam (Ativan) 8 mg PRN Q1HR PRN 01/04/19 17:45 01/10/19 07:34 DC Metronidazole 100 ml @ 100 mls/hr Q8HRS 01/06/19 14:00 01/09/19 07:19 DC 01/09/19 05:53 100 MLS/HR Multivitamins 10 ml/Thiamine HCl 100 mg/Folic Acid 1 mg/Sodium Chloride 1,011.2 ml @ 100 mls/ hr DAILY 01/04/19 18:00 01/08/19 19:07 DC 01/08/19 08:12 100 MLS/HR Norepinephrine Bitartrate 250 ml @ 14.235 mls/ hr CONT PRN 01/06/19 20:15 Octreotide Acetate 500 mcg/ Sodium Chloride 101 ml @ 0 mls/hr CONT PRN 01/06/19 12:15 01/08/19 10:48 DC 01/08/19 06:08 5 MLS/HR Ondansetron HCl (Zofran) 4 mg PRN Q6HRS PRN 01/04/19 19:30 01/04/19 19:34 4 MG Pantoprazole Sodium (PROTONIX VIAL for IV PUSH) 40 mg DAILYAC 01/06/19 10:00 01/06/19 12:17 DC 01/06/19 10:36 40 MG Pantoprazole Sodium 80 mg/ Sodium Chloride 100 ml @ 10 mls/hr Q10H 01/06/19 12:30 01/10/19 02:31 10 MLS/HR Phytonadione (Vitamin K Ampule) 10 mg 1X ONCE 01/07/19 11:45 01/07/19 11:46 DC 01/07/19 13:04 10 MG Piperacillin Sod/ Tazobactam Sod (Zosyn Per Pharmacy) 1 each PRN DAILY PRN 01/06/19 10:30 Piperacillin Sod/ Tazobactam Sod 3.375 gm/Sodium Chloride 50 ml @ 100 mls/hr Q6HRS 01/06/19 11:00 01/10/19 05:53 100 MLS/HR Potassium Bicarbonate (Potassium Effervescent Tablet) 80 meq 1X ONCE 01/09/19 06:15 01/09/19 06:21 DC 01/09/19 06:58 80 MEQ Potassium Chloride 50 meq/ Potassium Phosphate 13.6 mmol/Magnesium Sulfate 10 meq/ Calcium Gluconate 10 meq/ Multivitamins 10 ml/Chromium/ Copper/Manganese/ Seleni/Zn 1 ml/ Total Parenteral Nutrition/Amino Acids/Dextrose/ Fat Emulsion Intravenous 1,512 ml @ 63 mls/hr TPN CONT 01/09/19 22:00 01/10/19 21:59 7/17/19 21:41 63 MLS/HR Potassium Chloride/Water 50 ml @ 50 mls/hr Q1H 01/10/19 08:00 01/10/19 11:59 01/10/19 09:49 50 MLS/HR Potassium Phosphate 12 mmol/ Sodium Chloride 254 ml @ 125 mls/hr Q2H 01/10/19 08:00 01/10/19 11:59 Potassium Phosphate 13.6 mmol/Dextrose 254.5333 ml @ 62.646 m... 1X ONCE 01/09/19 22:00 01/10/19 08:03 DC 01/09/19 21:49 62.646 MLS/HR Sodium Chloride 1,000 ml @ 75 mls/hr [id number] 01/08/19 06:00 01/09/19 10:19 DC 01/08/19 23:47 75 MLS/HR Sodium Phosphate 40 mmol/Dextrose 263.3333 ml @ 62.5 mls/hr 1X ONCE 01/10/19 08:00 01/10/19 08:49 DC Lab Laboratory Tests Test 01/09/19 16:15 01/09/19 16:52 01/10/19 05:50 Potassium Level 2.7 mmol/L (3.5-5.1) 2.8 mmol/L (3.5-5.1) Phosphorus Level 2.0 mg/dL (2.6-4.7) 1.9 mg/dL (2.6-4.7) Magnesium Level 2.3 mg/dL (1.8-2.4) 2.2 mg/dL (1.8-2.4) Triglycerides Level 69 mg/dL (0-150) Glucose (Fingerstick) 149 mg/dL (70-99) White Blood Count 10.3 x10^3/uL (4.0-11.0) Red Blood Count 2.16 x10^6/uL (4.30-5.70) Hemoglobin 7.7 g/dL (13.0-17.5) Hematocrit 22.9 % (39.0-53.0) Mean Corpuscular Volume 106 fL (79-100) Mean Corpuscular Hemoglobin 36 pg (25-35) Mean Corpuscular Hemoglobin Concent 34 g/dL (31-37) Red Cell Distribution Width 24.9 % (11.5-14.5) Platelet Count 80 x10^3/uL (140-400) Neutrophils (%) (Auto) 65 % (31-73) Lymphocytes (%) (Auto) 23 % (24-48) Monocytes (%) (Auto) 9 % (0-9) Eosinophils (%) (Auto) 3 % (0-3) Basophils (%) (Auto) 0 % (0-3) Neutrophils # (Auto) 6.7 x10^3/uL (1.8-7.7) Lymphocytes # (Auto) 2.4 x10^3/uL (1.0-4.8) Monocytes # (Auto) 0.9 x10^3/uL (0.0-1.1) Eosinophils # (Auto) 0.3 x10^3/uL (0.0-0.7) Basophils # (Auto) 0.0 x10^3/uL (0.0-0.2) Prothrombin Time 25.4 SEC (11.7-14.0) Prothromb Time International Ratio 2.3 (0.8-1.1) Sodium Level 162 mmol/L (136-145) Chloride Level 127 mmol/L (98-107) Carbon Dioxide Level 27 mmol/L (21-32) Anion Gap 8 (6-14) Blood Urea Nitrogen 17 mg/dL (8-26) Creatinine 0.9 mg/dL (0.7-1.3) Estimated GFR (Cockcroft-Gault) 91.7 BUN/Creatinine Ratio 19 (6-20) Glucose Level 130 mg/dL (70-99) Calcium Level 7.6 mg/dL (8.5-10.1) Total Bilirubin 14.4 mg/dL (0.2-1.0) Aspartate Amino Transf (AST/SGOT) 169 U/L (15-37) Alanine Aminotransferase (ALT/SGPT) 155 U/L (16-63) Alkaline Phosphatase 80 U/L (46-116) Total Protein 4.9 g/dL (6.4-8.2) Albumin 1.7 g/dL (3.4-5.0) Albumin/Globulin Ratio 0.5 (1.0-1.7) Results All relevant outside records, renal labs, imaging studies, telemetry/EKG's were reviewed. APRIL SERVIN MD Jan 10, 2019 10:15
--- NOTE | 2019-01-10 10:17 | RAD ---
AP view of the abdomen Clinical indications: NG tube placement. FINDINGS/ IMPRESSION: Tip of an NG tube is seen within the distal esophagus just above the GE junction. Therefore, the tube should be advanced another 12 cm. I discussed this with the ICU nurse Eugenio at 10:12 AM on January 10, 2019. He told me that he repositioned the tube and another KUB is forthcoming. There is mild dilatation of small bowel. Electronically signed by: Peyman Trammell MD (01/10/2019 10:14 AM) [id number]
--- NOTE | 2019-01-10 10:18 | RAD ---
KUB 9:59 AM Clinical indications: Repositioning of NG tube. FINDINGS/ IMPRESSION: NG tube tip is now located within the mid body of the stomach. Proximal port is seen within the proximal body of the stomach. Therefore, the NG tube is properly positioned. Electronically signed by: Peyman Trammell MD (01/10/2019 10:16 AM) [id number]
[2019-01-10] MEDS: TPN PER PHARMACY MC PRN (10:31)
[2019-01-10] MEDS: IV DEXTROSE 5% 1,000 ML IV SCH ×3 (10:36→23:23)
--- NOTE | 2019-01-10 10:36 | NUR ---
Pharmacy TPN Dosing Note S: NILAM PIRES is a 43 year old M Currently receiving Central Continuous TPN started 01/09/19 B:Pertinent PMH: npo Height: 5 feet, 7 inches Weight: 74 kg Current diet: npo LABS: Sodium: 162 Potassium: 2.8 Chloride: 127 Calcium: 7.6 Corrected Calcium: 9.44 Magnesium: 2.2 CO2: 27 SCr: 0.9 Glucose: 130 Albumin: 1.7 AST: 169 ALT: 155 TPN FORMULA: TPN TYPE: Central Continuous AMINO ACIDS: 80 gm DEXTROSE: 250 gm LIPIDS: 20 gm POTASSIUM CHLORIDE: 40 mEq POTASSIUM ACETATE: 40 mEq POTASSIUM PHOSPHATE: 15 mmol MAGNESIUM: 10 mEq CALCIUM: 10 mEq MULTIPLE VITAMIN: 10 ml TRACE ELEMENTS: 1ml TPN PLAN: -Patient receiving 80mEq KCl IVPB as well as 12mmol Kphos IVPB today. -Kphos increased to 15mmol and potassium adjusted to 40mEq of KCl and 40mEq of Kacetate. -TPN macros adjusted per load planner rec's. -Patient maintained on D5W IVF at 75mL/hr for hypernatremia; no sodium in TPN. R: Change TPN per plan and ordered formula. Will monitor electrolytes, glucose, and tolerance to TPN. Quiana De Los Santos Shama, 01/10/19 [id number]
--- NOTE | 2019-01-10 10:37 | PDOC ---
Subjective: Subjective: Asks me if I'm in charge. Objective: Objective: D/w nurse - wonders if lactulose contributing to hypokalemia. 875 cc stool last 24 hours, 550cc from NG. No bleeding. TPN, PPI drip. Vital Signs: Vital Signs Date Time Temp Pulse Resp B/P (MAP) Pulse Ox O2 Delivery O2 Flow Rate FiO2 01/10/19 10:00 98 25 115/78 (90) 97 Room Air 01/10/19 08:00 98.8 98.8 01/10/19 04:00 15.0 Labs: Laboratory Tests Test 01/09/19 16:15 01/09/19 16:52 01/10/19 05:50 Potassium Level 2.7 mmol/L 2.8 mmol/L Phosphorus Level 2.0 mg/dL 1.9 mg/dL Magnesium Level 2.3 mg/dL 2.2 mg/dL Triglycerides Level 69 mg/dL Glucose (Fingerstick) 149 mg/dL White Blood Count 10.3 x10^3/uL Red Blood Count 2.16 x10^6/uL Hemoglobin 7.7 g/dL Hematocrit 22.9 % Mean Corpuscular Volume 106 fL Mean Corpuscular Hemoglobin 36 pg Mean Corpuscular Hemoglobin Concent 34 g/dL Red Cell Distribution Width 24.9 % Platelet Count 80 x10^3/uL Neutrophils (%) (Auto) 65 % Lymphocytes (%) (Auto) 23 % Monocytes (%) (Auto) 9 % Eosinophils (%) (Auto) 3 % Basophils (%) (Auto) 0 % Neutrophils # (Auto) 6.7 x10^3/uL Lymphocytes # (Auto) 2.4 x10^3/uL Monocytes # (Auto) 0.9 x10^3/uL Eosinophils # (Auto) 0.3 x10^3/uL Basophils # (Auto) 0.0 x10^3/uL Prothrombin Time 25.4 SEC Prothromb Time International Ratio 2.3 Sodium Level 162 mmol/L Chloride Level 127 mmol/L Carbon Dioxide Level 27 mmol/L Anion Gap 8 Blood Urea Nitrogen 17 mg/dL Creatinine 0.9 mg/dL Estimated GFR (Cockcroft-Gault) 91.7 BUN/Creatinine Ratio 19 Glucose Level 130 mg/dL Calcium Level 7.6 mg/dL Total Bilirubin 14.4 mg/dL Aspartate Amino Transf (AST/SGOT) 169 U/L Alanine Aminotransferase (ALT/SGPT) 155 U/L Alkaline Phosphatase 80 U/L Total Protein 4.9 g/dL Albumin 1.7 g/dL Albumin/Globulin Ratio 0.5 BLOOD CULTURE Preliminary NO GROWTH AFTER 3 DAYS Imaging: KUB 01/10 FINDINGS IMPRESSION: NG tube tip is now located within the mid body of the stomach. Proximal port is seen within the proximal body of the stomach. Therefore, the NG tube is properly positioned. PE: GEN: NAD HEENT: NG bilious LUNGS: room air HEART: RRR ABD: soft, non-tender NEURO/PSYCH: awake, talking A/P: Alcoholic hepatitis Encephalopathy, resp failure - better Anemia, coagulopathy - stable Hypernatremia, hypokalemia -- KUB noted. Could change PPI to IV push. Will review concerns re: hypokalemia w/ Dr. Francis. EMILEE TRAMMELL Jan 10, 2019 10:37
--- NOTE | 2019-01-10 11:38 | PDOC ---
PULMONARY PROGRESS NOTES Subjective off BIPAP, fully awake Vitals Vital Signs Date Time Temp Pulse Resp B/P (MAP) Pulse Ox O2 Delivery O2 Flow Rate FiO2 01/10/19 10:00 98 25 115/78 (90) 97 Room Air 01/10/19 08:00 98.8 98.8 01/10/19 04:00 15.0 General: Alert, No acute distress Lungs: Other (decrease bs) Cardiovascular: S1 Abdomen: Soft Extremities: Other (1+edema) Labs Laboratory Tests Test 01/09/19 03:40 01/09/19 07:50 01/09/19 16:15 01/09/19 16:52 White Blood Count 8.7 x10^3/uL (4.0-11.0) Red Blood Count 2.32 x10^6/uL (4.30-5.70) Hemoglobin 8.3 g/dL (13.0-17.5) Hematocrit 24.2 % (39.0-53.0) Mean Corpuscular Volume 104 fL (79-100) Mean Corpuscular Hemoglobin 36 pg (25-35) Mean Corpuscular Hemoglobin Concent 34 g/dL (31-37) Red Cell Distribution Width 25.1 % (11.5-14.5) Platelet Count 91 x10^3/uL (140-400) Neutrophils (%) (Auto) 67 % (31-73) Lymphocytes (%) (Auto) 25 % (24-48) Monocytes (%) (Auto) 8 % (0-9) Eosinophils (%) (Auto) 0 % (0-3) Basophils (%) (Auto) 0 % (0-3) Neutrophils # (Auto) 5.9 x10^3/uL (1.8-7.7) Lymphocytes # (Auto) 2.1 x10^3/uL (1.0-4.8) Monocytes # (Auto) 0.7 x10^3/uL (0.0-1.1) Eosinophils # (Auto) 0.0 x10^3/uL (0.0-0.7) Basophils # (Auto) 0.0 x10^3/uL (0.0-0.2) Prothrombin Time 28.9 SEC (11.7-14.0) Prothromb Time International Ratio 2.7 (0.8-1.1) Sodium Level 164 mmol/L (136-145) Potassium Level 2.6 mmol/L (3.5-5.1) 2.7 mmol/L (3.5-5.1) Chloride Level 128 mmol/L (98-107) Carbon Dioxide Level 27 mmol/L (21-32) Anion Gap 9 (6-14) Blood Urea Nitrogen 20 mg/dL (8-26) Creatinine 0.9 mg/dL (0.7-1.3) Estimated GFR (Cockcroft-Gault) 91.7 BUN/Creatinine Ratio 22 (6-20) Glucose Level 137 mg/dL (70-99) Calcium Level 7.7 mg/dL (8.5-10.1) Total Bilirubin 15.7 mg/dL (0.2-1.0) Aspartate Amino Transf (AST/SGOT) 288 U/L (15-37) Alanine Aminotransferase (ALT/SGPT) 197 U/L (16-63) Alkaline Phosphatase 84 U/L (46-116) Total Protein 5.3 g/dL (6.4-8.2) Albumin 2.0 g/dL (3.4-5.0) Albumin/Globulin Ratio 0.6 (1.0-1.7) Prealbumin 8.9 mg/dL (16.0-42.0) O2 Saturation 96 % (92-99) Arterial Blood pH 7.48 (7.35-7.45) Arterial Blood pCO2 at Patient Temp 33 mmHg (35-46) Arterial Blood pO2 at Patient Temp 87 mmHg (75-108) Arterial Blood HCO3 24 mmol/L (21-28) Arterial Blood Base Excess 0 mmol/L (-3-3) FiO2 40 Phosphorus Level 2.0 mg/dL (2.6-4.7) Magnesium Level 2.3 mg/dL (1.8-2.4) Triglycerides Level 69 mg/dL (0-150) Glucose (Fingerstick) 149 mg/dL (70-99) Test 01/10/19 05:50 White Blood Count 10.3 x10^3/uL (4.0-11.0) Red Blood Count 2.16 x10^6/uL (4.30-5.70) Hemoglobin 7.7 g/dL (13.0-17.5) Hematocrit 22.9 % (39.0-53.0) Mean Corpuscular Volume 106 fL (79-100) Mean Corpuscular Hemoglobin 36 pg (25-35) Mean Corpuscular Hemoglobin Concent 34 g/dL (31-37) Red Cell Distribution Width 24.9 % (11.5-14.5) Platelet Count 80 x10^3/uL (140-400) Neutrophils (%) (Auto) 65 % (31-73) Lymphocytes (%) (Auto) 23 % (24-48) Monocytes (%) (Auto) 9 % (0-9) Eosinophils (%) (Auto) 3 % (0-3) Basophils (%) (Auto) 0 % (0-3) Neutrophils # (Auto) 6.7 x10^3/uL (1.8-7.7) Lymphocytes # (Auto) 2.4 x10^3/uL (1.0-4.8) Monocytes # (Auto) 0.9 x10^3/uL (0.0-1.1) Eosinophils # (Auto) 0.3 x10^3/uL (0.0-0.7) Basophils # (Auto) 0.0 x10^3/uL (0.0-0.2) Prothrombin Time 25.4 SEC (11.7-14.0) Prothromb Time International Ratio 2.3 (0.8-1.1) Sodium Level 162 mmol/L (136-145) Potassium Level 2.8 mmol/L (3.5-5.1) Chloride Level 127 mmol/L (98-107) Carbon Dioxide Level 27 mmol/L (21-32) Anion Gap 8 (6-14) Blood Urea Nitrogen 17 mg/dL (8-26) Creatinine 0.9 mg/dL (0.7-1.3) Estimated GFR (Cockcroft-Gault) 91.7 BUN/Creatinine Ratio 19 (6-20) Glucose Level 130 mg/dL (70-99) Calcium Level 7.6 mg/dL (8.5-10.1) Phosphorus Level 1.9 mg/dL (2.6-4.7) Magnesium Level 2.2 mg/dL (1.8-2.4) Total Bilirubin 14.4 mg/dL (0.2-1.0) Aspartate Amino Transf (AST/SGOT) 169 U/L (15-37) Alanine Aminotransferase (ALT/SGPT) 155 U/L (16-63) Alkaline Phosphatase 80 U/L (46-116) Total Protein 4.9 g/dL (6.4-8.2) Albumin 1.7 g/dL (3.4-5.0) Albumin/Globulin Ratio 0.5 (1.0-1.7) Laboratory Tests Test 01/09/19 16:15 01/09/19 16:52 01/10/19 05:50 Potassium Level 2.7 mmol/L (3.5-5.1) 2.8 mmol/L (3.5-5.1) Phosphorus Level 2.0 mg/dL (2.6-4.7) 1.9 mg/dL (2.6-4.7) Magnesium Level 2.3 mg/dL (1.8-2.4) 2.2 mg/dL (1.8-2.4) Triglycerides Level 69 mg/dL (0-150) Glucose (Fingerstick) 149 mg/dL (70-99) White Blood Count 10.3 x10^3/uL (4.0-11.0) Red Blood Count 2.16 x10^6/uL (4.30-5.70) Hemoglobin 7.7 g/dL (13.0-17.5) Hematocrit 22.9 % (39.0-53.0) Mean Corpuscular Volume 106 fL (79-100) Mean Corpuscular Hemoglobin 36 pg (25-35) Mean Corpuscular Hemoglobin Concent 34 g/dL (31-37) Red Cell Distribution Width 24.9 % (11.5-14.5) Platelet Count 80 x10^3/uL (140-400) Neutrophils (%) (Auto) 65 % (31-73) Lymphocytes (%) (Auto) 23 % (24-48) Monocytes (%) (Auto) 9 % (0-9) Eosinophils (%) (Auto) 3 % (0-3) Basophils (%) (Auto) 0 % (0-3) Neutrophils # (Auto) 6.7 x10^3/uL (1.8-7.7) Lymphocytes # (Auto) 2.4 x10^3/uL (1.0-4.8) Monocytes # (Auto) 0.9 x10^3/uL (0.0-1.1) Eosinophils # (Auto) 0.3 x10^3/uL (0.0-0.7) Basophils # (Auto) 0.0 x10^3/uL (0.0-0.2) Prothrombin Time 25.4 SEC (11.7-14.0) Prothromb Time International Ratio 2.3 (0.8-1.1) Sodium Level 162 mmol/L (136-145) Chloride Level 127 mmol/L (98-107) Carbon Dioxide Level 27 mmol/L (21-32) Anion Gap 8 (6-14) Blood Urea Nitrogen 17 mg/dL (8-26) Creatinine 0.9 mg/dL (0.7-1.3) Estimated GFR (Cockcroft-Gault) 91.7 BUN/Creatinine Ratio 19 (6-20) Glucose Level 130 mg/dL (70-99) Calcium Level 7.6 mg/dL (8.5-10.1) Total Bilirubin 14.4 mg/dL (0.2-1.0) Aspartate Amino Transf (AST/SGOT) 169 U/L (15-37) Alanine Aminotransferase (ALT/SGPT) 155 U/L (16-63) Alkaline Phosphatase 80 U/L (46-116) Total Protein 4.9 g/dL (6.4-8.2) Albumin 1.7 g/dL (3.4-5.0) Albumin/Globulin Ratio 0.5 (1.0-1.7) Medications Active Scripts Medications Dose Route/Sig Max Daily Dose Days Date Category Omeprazole 40 Mg Capsule.dr 1 Cap PO DAILY 01/04/19 Reported Impression . 1. Acute hypoxic respiratory failure secondary to multifactorial etiologies including acute hepatic encephalopathy, sepsis, suspected acute lung injury, risk for aspiration, and acute on chronic hepatic failure. 2. Acute alcoholic hepatic encephalopathy. 3. Acute on chronic liver failure with progressively increasing bilirubin and transaminases. GI is following. Now trending down 4. Marked lactic acidosis. Likely sepsis, but could be related to type B lactic acidosis from liver failure. 5. Coagulopathy secondary to liver failure. 6. Marked metabolic acidosis on ABGs related to lactic acidosis and hepatic failure. improved 7. hypernatremia, per renal Plan . 1. Discussed with RN. We will continue with present canula and prn BIPAP 2. ABG adequate 3. Correction of metabolic acidosis. no further bicarbonate. 4. Continue broad-spectrum antibiotics. 5. Follow GI recommendation. 6. octreotide drip.per GI 7. DuoNeb. 8. Alcohol withdrawal precautions. 9. There is also concern for hepatic or colonic malignancy.GI following 10.Monitor Na, per renal 11.speech eval and if can eat PO, wean TPN D/W DIVYA AVENDAÑO MD Jan 10, 2019 11:38
--- NOTE | 2019-01-10 12:28 | PDOC ---
PROGRESS NOTES Chief Complaint Chief Complaint Sepsis w/ hypotension, lactic acidosis and fever severely encephalopathic TRIES TO OPEN EYES hypernatremia, hypokalemia Hemoglobin 8.3 post transfusion 01/09 INR has climbed to 2.7 moved ICU Ammonia levels 208 ON ADMIT I discussed nurse ID following GI.[email or web address] pulm consulted vit k 10mg sq plus 2 units FFP 01/07 PCXR 01/07 echo 01/07, cardiology consult The left ventricular systolic function is normal and the ejection fraction is within normal range. The Ejection Fraction is 60-65%. neurology consult, ct head NOTED 01/07 abd sono DNR History of Present Illness History of Present Illness more clear mentally severe alcohol abuse HX according to daughter Thrombocytopenia. , secondary to his liver disease and cirrhosis, Irregular wall thickening of the cecum and ascending colon with surrounding inflammatory type change and fluid. This is most compatible with severe colitis, could be of ischemic, infectious or inflammatory etiology. Colonic neoplasm not excludable. Milder colitis involving the remaining colon. Mild gallbladder distention with wall thickening and pericholecystic fluid, concerning for cholecystitis. Mild abdominal and pelvic ascites Mild wall thickening of the distal esophagus. Mild wall thickening of the duodenum. No significant small bowel distention. DNR status Very poor prognosis, no family this AM Vitals Vitals Vital Signs Date Time Temp Pulse Resp B/P (MAP) Pulse Ox O2 Delivery O2 Flow Rate FiO2 01/10/19 12:00 97.9 100 25 134/82 (99) 96 Room Air 97.9 01/10/19 04:00 15.0 Physical Exam Physical Exam GEN: alert and comfortable HEENT: Pupils equally round and reactive. Icterus. NG tube in place -mouth is dry NECK: Supple. LUNGS: decreased in bases HEART: S1 and S2 regular ABDOMEN: Mildly distended, soft, no grimace or guarding to palpation. Bowel sounds present. Rectal tube GENITOURINARY: Indwelling Galdamez in place. Urine is dark and concentrated. EXTREMITIES: No gross edema or cyanosis IVS: RIJ -clean SKIN: Warm to touch. He has multiple ecchymoses, especially lower extremities. NEUROLOGIC: Alert and follows simple commands General: No acute distress Heart: Normal S1, Normal S2 Lungs: Other (decrease bs) Abdomen: Soft, No tenderness, Other (ND) Extremities: No cyanosis, Other (noted eccyhmosis, 2 PLUS pedal edema ) Skin: Other (Bruising and jaundice) Labs LABS Laboratory Tests Test 01/09/19 16:15 01/09/19 16:52 01/10/19 05:50 Potassium Level 2.7 mmol/L (3.5-5.1) 2.8 mmol/L (3.5-5.1) Phosphorus Level 2.0 mg/dL (2.6-4.7) 1.9 mg/dL (2.6-4.7) Magnesium Level 2.3 mg/dL (1.8-2.4) 2.2 mg/dL (1.8-2.4) Triglycerides Level 69 mg/dL (0-150) Glucose (Fingerstick) 149 mg/dL (70-99) White Blood Count 10.3 x10^3/uL (4.0-11.0) Red Blood Count 2.16 x10^6/uL (4.30-5.70) Hemoglobin 7.7 g/dL (13.0-17.5) Hematocrit 22.9 % (39.0-53.0) Mean Corpuscular Volume 106 fL (79-100) Mean Corpuscular Hemoglobin 36 pg (25-35) Mean Corpuscular Hemoglobin Concent 34 g/dL (31-37) Red Cell Distribution Width 24.9 % (11.5-14.5) Platelet Count 80 x10^3/uL (140-400) Neutrophils (%) (Auto) 65 % (31-73) Lymphocytes (%) (Auto) 23 % (24-48) Monocytes (%) (Auto) 9 % (0-9) Eosinophils (%) (Auto) 3 % (0-3) Basophils (%) (Auto) 0 % (0-3) Neutrophils # (Auto) 6.7 x10^3/uL (1.8-7.7) Lymphocytes # (Auto) 2.4 x10^3/uL (1.0-4.8) Monocytes # (Auto) 0.9 x10^3/uL (0.0-1.1) Eosinophils # (Auto) 0.3 x10^3/uL (0.0-0.7) Basophils # (Auto) 0.0 x10^3/uL (0.0-0.2) Prothrombin Time 25.4 SEC (11.7-14.0) Prothromb Time International Ratio 2.3 (0.8-1.1) Sodium Level 162 mmol/L (136-145) Chloride Level 127 mmol/L (98-107) Carbon Dioxide Level 27 mmol/L (21-32) Anion Gap 8 (6-14) Blood Urea Nitrogen 17 mg/dL (8-26) Creatinine 0.9 mg/dL (0.7-1.3) Estimated GFR (Cockcroft-Gault) 91.7 BUN/Creatinine Ratio 19 (6-20) Glucose Level 130 mg/dL (70-99) Calcium Level 7.6 mg/dL (8.5-10.1) Total Bilirubin 14.4 mg/dL (0.2-1.0) Aspartate Amino Transf (AST/SGOT) 169 U/L (15-37) Alanine Aminotransferase (ALT/SGPT) 155 U/L (16-63) Alkaline Phosphatase 80 U/L (46-116) Total Protein 4.9 g/dL (6.4-8.2) Albumin 1.7 g/dL (3.4-5.0) Albumin/Globulin Ratio 0.5 (1.0-1.7) Assessment and Plan Assessmemt and Plan Problems Medical Problems: (1) Alcoholic liver disease Status: Acute (2) Cholelithiasis Status: Acute (3) Colitis Status: Acute (4) Jaundice Status: Acute (5) Pancreatitis Status: Acute (6) Thrombocytopenia Status: Acute Comment Review of Relevant I have reviewed the following items pierre (where applicable) has been applied. Labs Laboratory Tests Test 01/09/19 03:40 01/09/19 07:50 01/09/19 16:15 01/09/19 16:52 White Blood Count 8.7 x10^3/uL (4.0-11.0) Red Blood Count 2.32 x10^6/uL (4.30-5.70) Hemoglobin 8.3 g/dL (13.0-17.5) Hematocrit 24.2 % (39.0-53.0) Mean Corpuscular Volume 104 fL (79-100) Mean Corpuscular Hemoglobin 36 pg (25-35) Mean Corpuscular Hemoglobin Concent 34 g/dL (31-37) Red Cell Distribution Width 25.1 % (11.5-14.5) Platelet Count 91 x10^3/uL (140-400) Neutrophils (%) (Auto) 67 % (31-73) Lymphocytes (%) (Auto) 25 % (24-48) Monocytes (%) (Auto) 8 % (0-9) Eosinophils (%) (Auto) 0 % (0-3) Basophils (%) (Auto) 0 % (0-3) Neutrophils # (Auto) 5.9 x10^3/uL (1.8-7.7) Lymphocytes # (Auto) 2.1 x10^3/uL (1.0-4.8) Monocytes # (Auto) 0.7 x10^3/uL (0.0-1.1) Eosinophils # (Auto) 0.0 x10^3/uL (0.0-0.7) Basophils # (Auto) 0.0 x10^3/uL (0.0-0.2) Prothrombin Time 28.9 SEC (11.7-14.0) Prothromb Time International Ratio 2.7 (0.8-1.1) Sodium Level 164 mmol/L (136-145) Potassium Level 2.6 mmol/L (3.5-5.1) 2.7 mmol/L (3.5-5.1) Chloride Level 128 mmol/L (98-107) Carbon Dioxide Level 27 mmol/L (21-32) Anion Gap 9 (6-14) Blood Urea Nitrogen 20 mg/dL (8-26) Creatinine 0.9 mg/dL (0.7-1.3) Estimated GFR (Cockcroft-Gault) 91.7 BUN/Creatinine Ratio 22 (6-20) Glucose Level 137 mg/dL (70-99) Calcium Level 7.7 mg/dL (8.5-10.1) Total Bilirubin 15.7 mg/dL (0.2-1.0) Aspartate Amino Transf (AST/SGOT) 288 U/L (15-37) Alanine Aminotransferase (ALT/SGPT) 197 U/L (16-63) Alkaline Phosphatase 84 U/L (46-116) Total Protein 5.3 g/dL (6.4-8.2) Albumin 2.0 g/dL (3.4-5.0) Albumin/Globulin Ratio 0.6 (1.0-1.7) Prealbumin 8.9 mg/dL (16.0-42.0) O2 Saturation 96 % (92-99) Arterial Blood pH 7.48 (7.35-7.45) Arterial Blood pCO2 at Patient Temp 33 mmHg (35-46) Arterial Blood pO2 at Patient Temp 87 mmHg (75-108) Arterial Blood HCO3 24 mmol/L (21-28) Arterial Blood Base Excess 0 mmol/L (-3-3) FiO2 40 Phosphorus Level 2.0 mg/dL (2.6-4.7) Magnesium Level 2.3 mg/dL (1.8-2.4) Triglycerides Level 69 mg/dL (0-150) Glucose (Fingerstick) 149 mg/dL (70-99) Test 01/10/19 05:50 White Blood Count 10.3 x10^3/uL (4.0-11.0) Red Blood Count 2.16 x10^6/uL (4.30-5.70) Hemoglobin 7.7 g/dL (13.0-17.5) Hematocrit 22.9 % (39.0-53.0) Mean Corpuscular Volume 106 fL (79-100) Mean Corpuscular Hemoglobin 36 pg (25-35) Mean Corpuscular Hemoglobin Concent 34 g/dL (31-37) Red Cell Distribution Width 24.9 % (11.5-14.5) Platelet Count 80 x10^3/uL (140-400) Neutrophils (%) (Auto) 65 % (31-73) Lymphocytes (%) (Auto) 23 % (24-48) Monocytes (%) (Auto) 9 % (0-9) Eosinophils (%) (Auto) 3 % (0-3) Basophils (%) (Auto) 0 % (0-3) Neutrophils # (Auto) 6.7 x10^3/uL (1.8-7.7) Lymphocytes # (Auto) 2.4 x10^3/uL (1.0-4.8) Monocytes # (Auto) 0.9 x10^3/uL (0.0-1.1) Eosinophils # (Auto) 0.3 x10^3/uL (0.0-0.7) Basophils # (Auto) 0.0 x10^3/uL (0.0-0.2) Prothrombin Time 25.4 SEC (11.7-14.0) Prothromb Time International Ratio 2.3 (0.8-1.1) Sodium Level 162 mmol/L (136-145) Potassium Level 2.8 mmol/L (3.5-5.1) Chloride Level 127 mmol/L (98-107) Carbon Dioxide Level 27 mmol/L (21-32) Anion Gap 8 (6-14) Blood Urea Nitrogen 17 mg/dL (8-26) Creatinine 0.9 mg/dL (0.7-1.3) Estimated GFR (Cockcroft-Gault) 91.7 BUN/Creatinine Ratio 19 (6-20) Glucose Level 130 mg/dL (70-99) Calcium Level 7.6 mg/dL (8.5-10.1) Phosphorus Level 1.9 mg/dL (2.6-4.7) Magnesium Level 2.2 mg/dL (1.8-2.4) Total Bilirubin 14.4 mg/dL (0.2-1.0) Aspartate Amino Transf (AST/SGOT) 169 U/L (15-37) Alanine Aminotransferase (ALT/SGPT) 155 U/L (16-63) Alkaline Phosphatase 80 U/L (46-116) Total Protein 4.9 g/dL (6.4-8.2) Albumin 1.7 g/dL (3.4-5.0) Albumin/Globulin Ratio 0.5 (1.0-1.7) Laboratory Tests Test 01/09/19 16:15 01/09/19 16:52 01/10/19 05:50 Potassium Level 2.7 mmol/L (3.5-5.1) 2.8 mmol/L (3.5-5.1) Phosphorus Level 2.0 mg/dL (2.6-4.7) 1.9 mg/dL (2.6-4.7) Magnesium Level 2.3 mg/dL (1.8-2.4) 2.2 mg/dL (1.8-2.4) Triglycerides Level 69 mg/dL (0-150) Glucose (Fingerstick) 149 mg/dL (70-99) White Blood Count 10.3 x10^3/uL (4.0-11.0) Red Blood Count 2.16 x10^6/uL (4.30-5.70) Hemoglobin 7.7 g/dL (13.0-17.5) Hematocrit 22.9 % (39.0-53.0) Mean Corpuscular Volume 106 fL (79-100) Mean Corpuscular Hemoglobin 36 pg (25-35) Mean Corpuscular Hemoglobin Concent 34 g/dL (31-37) Red Cell Distribution Width 24.9 % (11.5-14.5) Platelet Count 80 x10^3/uL (140-400) Neutrophils (%) (Auto) 65 % (31-73) Lymphocytes (%) (Auto) 23 % (24-48) Monocytes (%) (Auto) 9 % (0-9) Eosinophils (%) (Auto) 3 % (0-3) Basophils (%) (Auto) 0 % (0-3) Neutrophils # (Auto) 6.7 x10^3/uL (1.8-7.7) Lymphocytes # (Auto) 2.4 x10^3/uL (1.0-4.8) Monocytes # (Auto) 0.9 x10^3/uL (0.0-1.1) Eosinophils # (Auto) 0.3 x10^3/uL (0.0-0.7) Basophils # (Auto) 0.0 x10^3/uL (0.0-0.2) Prothrombin Time 25.4 SEC (11.7-14.0) Prothromb Time International Ratio 2.3 (0.8-1.1) Sodium Level 162 mmol/L (136-145) Chloride Level 127 mmol/L (98-107) Carbon Dioxide Level 27 mmol/L (21-32) Anion Gap 8 (6-14) Blood Urea Nitrogen 17 mg/dL (8-26) Creatinine 0.9 mg/dL (0.7-1.3) Estimated GFR (Cockcroft-Gault) 91.7 BUN/Creatinine Ratio 19 (6-20) Glucose Level 130 mg/dL (70-99) Calcium Level 7.6 mg/dL (8.5-10.1) Total Bilirubin 14.4 mg/dL (0.2-1.0) Aspartate Amino Transf (AST/SGOT) 169 U/L (15-37) Alanine Aminotransferase (ALT/SGPT) 155 U/L (16-63) Alkaline Phosphatase 80 U/L (46-116) Total Protein 4.9 g/dL (6.4-8.2) Albumin 1.7 g/dL (3.4-5.0) Albumin/Globulin Ratio 0.5 (1.0-1.7) Microbiology 01/06/19 Blood Culture - Preliminary, Resulted NO GROWTH AFTER 3 DAYS 01/04/19 Urine Culture - Final, Complete 01/04/19 Urine Culture Result 1 (DONALD) - Final, Complete Medications Current Medications Iohexol (Omnipaque 240 Mg/ml) 30 ml 1X ONCE PO Last administered on 01/04/19at 15:15; Start 01/04/19 at 15:15; Stop 01/04/19 at 15:17; Status DC Iohexol (Omnipaque 300 Mg/ml) 75 ml 1X ONCE IV Last administered on 01/04/19at 16:20; Start 01/04/19 at 15:15; Stop 01/04/19 at 15:17; Status DC Info (CONTRAST GIVEN -- Rx MONITORING) 1 each PRN DAILY PRN MC SEE COMMENTS; Start 01/04/19 at 15:30; Stop 01/06/19 at 15:29; Status DC Multivitamins 10 ml/Thiamine HCl 100 mg/Folic Acid 1 mg/Sodium Chloride 1,011.2 ml @ 100 mls/ hr DAILY IV Last administered on 01/08/19at 08:12; Start 01/04/19 at 18:00; Stop 01/08/19 at 19:07; Status DC Chlordiazepoxide (Librium) 50 mg PRN Q1HR PRN PO For CIWA 8-14 Last administ ered on 01/04/19at 18:17; Start 01/04/19 at 17:45 Chlordiazepoxide (Librium) 100 mg PRN Q1HR PRN PO For CIWA 15 or greater Last administered on 01/05/19at 06:27; Start 01/04/19 at 17:45 Lorazepam (Ativan) 4 mg PRN Q1HR PRN PO For CIWA 8-14 Last administered on 01/04/19at 18:17; Start 01/04/19 at 17:45; Stop 01/10/19 at 07:34; Status DC Lorazepam (Ativan) 8 mg PRN Q1HR PRN PO For CIWA 15 or greater; Start 01/04/19 at 17:45; Stop 01/10/19 at 07:34; Status DC Haloperidol Lactate (Haldol Inj) 5 mg PRN Q4HRS PRN IVP Hallucinatns,Confusn,Delirium; Start 01/04/19 at 17:45 Diphenhydramine HCl (Benadryl) 25 mg PRN Q15MIN PRN IVP EPS symptoms 2'Haldol admin; Start 01/04/19 at 17:45 Clonidine HCl (Catapres) 0.1 mg PRN Q1HR PRN PO SBP > 180 or DBP > 100, MRX3 Last administered on 01/08/19at 07:18; Start 01/04/19 at 17:45; Stop 01/08/19 at 08:58; Status DC Lorazepam (Ativan Inj) 2 mg PRN Q1HR PRN IV For CIWA 8-14 Last administered on 01/09/19at 12:59; Start 01/04/19 at 19:15 Lorazepam (Ativan Inj) 4 mg PRN Q1HR PRN IV For CIWA 15 or greater Last administered on 01/05/19at 06:28; Start 01/04/19 at 19:15 Lorazepam (Ativan Inj) 2 mg PRN Q15MIN PRN IV SEE COMMENTS; Start 01/04/19 at 19:15; Status UNV Lorazepam (Ativan Inj) 4 mg PRN Q15MIN PRN IV SEE COMMENTS; Start 01/04/19 at 19:15; Status UNV Ondansetron HCl (Zofran) 4 mg PRN Q6HRS PRN IV NAUSEA/VOMITING Last administered on 01/04/19at 19:34; Start 01/04/19 at 19:30 Pantoprazole Sodium (PROTONIX VIAL for IV PUSH) 40 mg DAILYAC IVP Last administered on 01/06/19at 10:36; Start 01/06/19 at 10:00; Stop 01/06/19 at 12:17; Status DC Phytonadione (Vitamin K Ampule) 10 mg 1X ONCE SQ Last administered on 01/06/19at 10:36; Start 01/06/19 at 10:15; Stop 01/06/19 at 10:16; Status DC Piperacillin Sod/ Tazobactam Sod (Zosyn Per Pharmacy) 1 each PRN DAILY PRN MC SEE COMMENTS; Start 01/06/19 at 10:30 Piperacillin Sod/ Tazobactam Sod 3.375 gm/Sodium Chloride 50 ml @ 100 mls/hr Q6HRS IV Last administered on 01/10/19at 11:42; Start 01/06/19 at 11:00 Lactulose (Lactulose) 30 gm Q6HRS NG Last administered on 01/09/19at 05:53; Start 01/06/19 at 12:00; Stop 01/09/19 at 10:51; Status DC Metronidazole 100 ml @ 100 mls/hr Q8HRS IV Last administered on 01/09/19at 05:53; Start 01/06/19 at 14:00; Stop 01/09/19 at 07:19; Status DC Pantoprazole Sodium 80 mg/ Sodium Chloride 100 ml @ 10 mls/hr Q10H IV Last administered on 01/10/19at 02:31; Start 01/06/19 at 12:30; Stop 01/10/19 at 12:11; Status DC Octreotide Acetate 500 mcg/ Sodium Chloride 101 ml @ 0 mls/hr CONT PRN IV SEE I/O RECORD Last administered on 01/08/19at 06:08; Start 01/06/19 at 12:15; Stop 01/08/19 at 10:48; Status DC Norepinephrine Bitartrate 250 ml @ 14.235 mls/ hr CONT PRN IV SEE I/O RECORD; Start 01/06/19 at 20:15 Albumin Human 100 ml @ 100 mls/hr 1X ONCE IV Last administered on 01/06/19at 21:30; Start 01/06/19 at 20:15; Stop 01/06/19 at 21:14; Status DC Phytonadione (Vitamin K Ampule) 10 mg 1X ONCE SQ Last administered on 01/07/19at 13:04; Start 01/07/19 at 11:45; Stop 01/07/19 at 11:46; Status DC Albuterol/ Ipratropium (Duoneb) 3 ml RTQID NEB Last administered on 01/10/19at 11:39; Start 01/07/19 at 16:00 Sodium Chloride 1,000 ml @ 75 mls/hr [id number] IV Last administered on 01/08/19at 23:47; Start 01/08/19 at 06:00; Stop 01/09/19 at 10:19; Status DC Labetalol HCl (Normodyne Iv Push) 10 mg PRN Q4HRS PRN IVP HYPERTENSION; Start 01/08/19 at 09:00 Potassium Bicarbonate (Potassium Effervescent Tablet) 40 meq 1X ONCE PEG Last administered on 01/08/19at 12:24; Start 01/08/19 at 11:30; Stop 01/08/19 at 11:33; Status DC Potassium Bicarbonate (Potassium Effervescent Tablet) 40 meq 1X ONCE PEG Last administered on 01/08/19at 16:06; Start 01/08/19 at 16:00; Stop 01/08/19 at 16:01; Status DC Potassium Bicarbonate (Potassium Effervescent Tablet) 80 meq 1X ONCE PEG Last administered on 01/09/19at 06:58; Start 01/09/19 at 06:15; Stop 01/09/19 at 06:21; Status DC Artificial Tears (Artificial Tears) 1 drop PRN Q15MIN PRN OU DRY EYE Last administered on 01/09/19at 10:11; Start 01/09/19 at 10:00 Dextrose/Sodium Chloride 1,000 ml @ 75 mls/hr [id number] IV Last administered on 01/09/19at 11:03; Start 01/09/19 at 10:30; Stop 01/09/19 at 12:20; Status DC Potassium Chloride/Water 50 ml @ 50 mls/hr Q1H IV ; Start 01/09/19 at 10:30; Stop 01/09/19 at 12:29; Status UNV Potassium Chloride/Water 100 ml @ 100 mls/hr Q1H IV ; Start 01/09/19 at 11:00; Stop 01/09/19 at 11:00; Status DC Lactulose (Lactulose) 30 gm BID NG Last administered on 01/09/19at 20:52; Start 01/09/19 at 21:00 Dextrose 1,000 ml @ 150 mls/hr Q6H40M IV Last administered on 01/10/19at 10:36; Start 01/09/19 at 12:30 Info (Tpn Per Pharmacy) 1 each PRN DAILY PRN MC SEE COMMENTS Last administered on 01/10/19at 10:31; Start 01/09/19 at 15:15 Potassium Chloride 50 meq/ Potassium Phosphate 13.6 mmol/Magnesium Sulfate 10 meq/ Calcium Gluconate 10 meq/ Multivitamins 10 ml/Chromium/ Copper/Manganese/ Seleni/Zn 1 ml/ Total Parenteral Nutrition/Amino Acids/Dextrose/ Fat Emulsion Intravenous 1,512 ml @ 63 mls/hr TPN CONT IV Last administered on 01/09/19at 21:41; Start 01/09/19 at 22:00; Stop 01/10/19 at 21:59 Potassium Chloride/Water 50 ml @ 50 mls/hr Q1H IV Last administered on 01/09/19at 20:51; Start 01/09/19 at 18:00; Stop 01/09/19 at 21:59; Status DC Potassium Phosphate 13.6 mmol/Dextrose 254.5333 ml @ 62.646 m... 1X ONCE IV Last administered on 01/09/19at 21:49; Start 01/09/19 at 22:00; Stop 01/10/19 at 08:03; Status DC Potassium Chloride/Water 50 ml @ 50 mls/hr Q1H IV Last administered on 01/10/19at 11:41; Start 01/10/19 at 08:00; Stop 01/10/19 at 11:59; Status DC Sodium Phosphate 40 mmol/Dextrose 263.3333 ml @ 62.5 mls/hr 1X ONCE IV ; Start 01/10/19 at 08:00; Stop 01/10/19 at 08:49; Status DC Potassium Phosphate 12 mmol/ Sodium Chloride 254 ml @ 125 mls/hr Q2H IV ; Start 01/10/19 at 08:00; Stop 01/10/19 at 11:59; Status DC Potassium Chloride 40 meq/ Potassium Acetate 40 meq/Potassium Phosphate 15 mmol/ Magnesium Sulfate 10 meq/Calcium Gluconate 10 meq/ Multivitamins 10 ml/Chromium/ Copper/Manganese/ Seleni/Zn 1 ml/ Total Parenteral Nutrition/Amino Acids/Dextrose/ Fat Emulsion Intravenous 1,512 ml @ 63 mls/hr TPN CONT IV ; Start 01/10/19 at 22:00; Stop 01/11/19 at 21:59 Pantoprazole Sodium (PROTONIX VIAL for IV PUSH) 40 mg BIDAC IVP ; Start 01/10/19 at 16:30 Active Scripts Active Reported Omeprazole 40 Mg Capsule.dr Warren Cap PO DAILY Vitals/I & O Vital Sign - Last 24 Hours 01/09/19 01/09/19 01/09/19 01/09/19 13:00 14:00 15:00 15:49 Pulse 108 98 95 Resp 20 20 20 B/P (MAP) 120/85 (97) 117/81 (93) 106/72 (83) Pulse Ox 100 100 100 100 O2 Delivery BiPAP/CPAP BiPAP/CPAP BiPAP/CPAP BiPAP/CPAP 01/09/19 01/09/19 01/09/19 01/09/19 16:00 16:00 17:00 18:00 Temp 98.8 98.8 Pulse 89 107 106 Resp 20 22 23 B/P (MAP) 104/66 (79) 93/62 (72) 103/68 (80) Pulse Ox 100 97 98 O2 Delivery Bi-pap BiPAP/CPAP Room Air Room Air 01/09/19 01/09/19 01/09/19 01/09/19 19:00 19:48 20:00 20:00 Temp 98.7 98.7 Pulse 104 101 Resp 18 17 B/P (MAP) 99/62 (74) 101/68 (79) Pulse Ox 94 89 97 O2 Delivery Room Air Venturi Mask Room Air Room Air O2 Flow Rate 15.0 01/09/19 01/09/19 01/09/19 01/09/19 20:00 21:00 22:00 23:00 Pulse 105 101 89 Resp 31 22 22 B/P (MAP) 98/63 (75) 102/67 (79) 108/69 (82) Pulse Ox 97 95 96 O2 Delivery Room Air Room Air Room Air O2 Flow Rate 15.0 01/09/19 01/10/19 01/10/19 01/10/19 23:59 00:00 00:01 01:00 Temp 99.4 99.4 Pulse 89 89 Resp 22 22 B/P (MAP) 112/72 (85) 115/71 (86) Pulse Ox 97 97 O2 Delivery Room Air Room Air Room Air O2 Flow Rate 15.0 01/10/19 01/10/19 01/10/19 01/10/19 02:00 03:00 04:00 04:00 Temp 98.6 98.6 Pulse 89 96 97 Resp 22 20 20 B/P (MAP) 131/78 (95) 112/68 (83) 119/74 (89) Pulse Ox 97 99 99 O2 Delivery Room Air Room Air Room Air O2 Flow Rate 15.0 01/10/19 01/10/19 01/10/19 01/10/19 04:00 05:00 06:00 07:00 Pulse 98 94 96 Resp 20 18 B/P (MAP) 117/72 (87) 124/78 (93) 132/90 (104) Pulse Ox 97 95 97 O2 Delivery Room Air Room Air Room Air Room Air 01/10/19 01/10/19 01/10/19 01/10/19 08:00 08:00 08:47 09:00 Temp 98.8 98.8 Pulse 104 92 Resp B/P (MAP) 125/82 (96) 125/85 (98) Pulse Ox 97 97 97 O2 Delivery Room Air Room Air Room Air Room Air 01/10/19 01/10/19 01/10/19 01/10/19 10:00 11:00 11:39 12:00 Pulse 98 102 Resp 22 B/P (MAP) 115/78 (90) 113/72 (86) Pulse Ox 97 98 97 O2 Delivery Room Air Room Air Room Air Room Air 01/10/19 12:00 Temp 97.9 97.9 Pulse 100 Resp 25 B/P (MAP) 134/82 (99) Pulse Ox 96 O2 Delivery Room Air Intake and Output 01/09/19 01/09/19 01/10/19 14:59 22:59 06:59 Intake Total 646 ml 695.08 ml 2748 ml Output Total 690 ml 915 ml 420 ml Balance -44 ml -219.92 ml 2328 ml KINSEY FRANCO MD Jan 10, 2019 12:28
[2019-01-10] MEDS: NORMAL SALINE IV SCH ×2 (12:41→15:24)
[2019-01-10] MEDS: POTASSIUM PHOSPHATE DIBASIC IV SCH ×2 (12:41→15:24)
--- NOTE | 2019-01-10 14:27 | PDOC ---
PROGRESS NOTES Subjective Subjective HPI - f/u of Thrombocytopenia ROS - no bleed Objective Objective Vital Signs Date Time Temp Pulse Resp B/P (MAP) Pulse Ox O2 Delivery O2 Flow Rate FiO2 01/10/19 14:00 94 25 114/71 (85) 97 Room Air 01/10/19 12:00 97.9 97.9 01/10/19 04:00 15.0 Intake and Output 01/10/19 07:00 Intake Total 3989.08 ml Output Total 2010 ml Balance 1979.08 ml IV Total 3989.08 ml Output Urine Total 1110 ml Stool Total 300 ml Gastric Drainage Total 400 ml Other 200 ml Physical Exam Heart: Normal S1, Normal S2 General: No acute distress Neck: No JVD Assessment Assessment Problems Medical Problems: (1) Alcoholic liver disease Status: Acute (2) Cholelithiasis Status: Acute (3) Colitis Status: Acute (4) Jaundice Status: Acute (5) Pancreatitis Status: Acute (6) Thrombocytopenia Status: Acute Imp/Plan: 1. Thrombocytopenia. Secondary to liver dysfunction. Improved a little from admission. Plt 80. 2. Coagulopathy from liver failure. Given vit k 3. ?hepatic mass. If he improves would eventually get an MRI to further evaluate, but if not would not pursue 4. Liver failure. Most likely secondary to etoh 5. Colitis. Management per primary team 6. Anemia, Hb 7.7. monitor cbc. Comment Review of Relevant I have reviewed the following items pierre (where applicable) has been applied. Labs Laboratory Tests Test 01/09/19 03:40 01/09/19 07:50 01/09/19 16:15 01/09/19 16:52 White Blood Count 8.7 x10^3/uL (4.0-11.0) Red Blood Count 2.32 x10^6/uL (4.30-5.70) Hemoglobin 8.3 g/dL (13.0-17.5) Hematocrit 24.2 % (39.0-53.0) Mean Corpuscular Volume 104 fL (79-100) Mean Corpuscular Hemoglobin 36 pg (25-35) Mean Corpuscular Hemoglobin Concent 34 g/dL (31-37) Red Cell Distribution Width 25.1 % (11.5-14.5) Platelet Count 91 x10^3/uL (140-400) Neutrophils (%) (Auto) 67 % (31-73) Lymphocytes (%) (Auto) 25 % (24-48) Monocytes (%) (Auto) 8 % (0-9) Eosinophils (%) (Auto) 0 % (0-3) Basophils (%) (Auto) 0 % (0-3) Neutrophils # (Auto) 5.9 x10^3/uL (1.8-7.7) Lymphocytes # (Auto) 2.1 x10^3/uL (1.0-4.8) Monocytes # (Auto) 0.7 x10^3/uL (0.0-1.1) Eosinophils # (Auto) 0.0 x10^3/uL (0.0-0.7) Basophils # (Auto) 0.0 x10^3/uL (0.0-0.2) Prothrombin Time 28.9 SEC (11.7-14.0) Prothromb Time International Ratio 2.7 (0.8-1.1) Sodium Level 164 mmol/L (136-145) Potassium Level 2.6 mmol/L (3.5-5.1) 2.7 mmol/L (3.5-5.1) Chloride Level 128 mmol/L (98-107) Carbon Dioxide Level 27 mmol/L (21-32) Anion Gap 9 (6-14) Blood Urea Nitrogen 20 mg/dL (8-26) Creatinine 0.9 mg/dL (0.7-1.3) Estimated GFR (Cockcroft-Gault) 91.7 BUN/Creatinine Ratio 22 (6-20) Glucose Level 137 mg/dL (70-99) Calcium Level 7.7 mg/dL (8.5-10.1) Total Bilirubin 15.7 mg/dL (0.2-1.0) Aspartate Amino Transf (AST/SGOT) 288 U/L (15-37) Alanine Aminotransferase (ALT/SGPT) 197 U/L (16-63) Alkaline Phosphatase 84 U/L (46-116) Total Protein 5.3 g/dL (6.4-8.2) Albumin 2.0 g/dL (3.4-5.0) Albumin/Globulin Ratio 0.6 (1.0-1.7) Prealbumin 8.9 mg/dL (16.0-42.0) O2 Saturation 96 % (92-99) Arterial Blood pH 7.48 (7.35-7.45) Arterial Blood pCO2 at Patient Temp 33 mmHg (35-46) Arterial Blood pO2 at Patient Temp 87 mmHg (75-108) Arterial Blood HCO3 24 mmol/L (21-28) Arterial Blood Base Excess 0 mmol/L (-3-3) FiO2 40 Phosphorus Level 2.0 mg/dL (2.6-4.7) Magnesium Level 2.3 mg/dL (1.8-2.4) Triglycerides Level 69 mg/dL (0-150) Glucose (Fingerstick) 149 mg/dL (70-99) Test 01/10/19 05:50 White Blood Count 10.3 x10^3/uL (4.0-11.0) Red Blood Count 2.16 x10^6/uL (4.30-5.70) Hemoglobin 7.7 g/dL (13.0-17.5) Hematocrit 22.9 % (39.0-53.0) Mean Corpuscular Volume 106 fL (79-100) Mean Corpuscular Hemoglobin 36 pg (25-35) Mean Corpuscular Hemoglobin Concent 34 g/dL (31-37) Red Cell Distribution Width 24.9 % (11.5-14.5) Platelet Count 80 x10^3/uL (140-400) Neutrophils (%) (Auto) 65 % (31-73) Lymphocytes (%) (Auto) 23 % (24-48) Monocytes (%) (Auto) 9 % (0-9) Eosinophils (%) (Auto) 3 % (0-3) Basophils (%) (Auto) 0 % (0-3) Neutrophils # (Auto) 6.7 x10^3/uL (1.8-7.7) Lymphocytes # (Auto) 2.4 x10^3/uL (1.0-4.8) Monocytes # (Auto) 0.9 x10^3/uL (0.0-1.1) Eosinophils # (Auto) 0.3 x10^3/uL (0.0-0.7) Basophils # (Auto) 0.0 x10^3/uL (0.0-0.2) Prothrombin Time 25.4 SEC (11.7-14.0) Prothromb Time International Ratio 2.3 (0.8-1.1) Sodium Level 162 mmol/L (136-145) Potassium Level 2.8 mmol/L (3.5-5.1) Chloride Level 127 mmol/L (98-107) Carbon Dioxide Level 27 mmol/L (21-32) Anion Gap 8 (6-14) Blood Urea Nitrogen 17 mg/dL (8-26) Creatinine 0.9 mg/dL (0.7-1.3) Estimated GFR (Cockcroft-Gault) 91.7 BUN/Creatinine Ratio 19 (6-20) Glucose Level 130 mg/dL (70-99) Calcium Level 7.6 mg/dL (8.5-10.1) Phosphorus Level 1.9 mg/dL (2.6-4.7) Magnesium Level 2.2 mg/dL (1.8-2.4) Total Bilirubin 14.4 mg/dL (0.2-1.0) Aspartate Amino Transf (AST/SGOT) 169 U/L (15-37) Alanine Aminotransferase (ALT/SGPT) 155 U/L (16-63) Alkaline Phosphatase 80 U/L (46-116) Total Protein 4.9 g/dL (6.4-8.2) Albumin 1.7 g/dL (3.4-5.0) Albumin/Globulin Ratio 0.5 (1.0-1.7) Laboratory Tests Test 01/09/19 16:15 01/09/19 16:52 01/10/19 05:50 Potassium Level 2.7 mmol/L (3.5-5.1) 2.8 mmol/L (3.5-5.1) Phosphorus Level 2.0 mg/dL (2.6-4.7) 1.9 mg/dL (2.6-4.7) Magnesium Level 2.3 mg/dL (1.8-2.4) 2.2 mg/dL (1.8-2.4) Triglycerides Level 69 mg/dL (0-150) Glucose (Fingerstick) 149 mg/dL (70-99) White Blood Count 10.3 x10^3/uL (4.0-11.0) Red Blood Count 2.16 x10^6/uL (4.30-5.70) Hemoglobin 7.7 g/dL (13.0-17.5) Hematocrit 22.9 % (39.0-53.0) Mean Corpuscular Volume 106 fL (79-100) Mean Corpuscular Hemoglobin 36 pg (25-35) Mean Corpuscular Hemoglobin Concent 34 g/dL (31-37) Red Cell Distribution Width 24.9 % (11.5-14.5) Platelet Count 80 x10^3/uL (140-400) Neutrophils (%) (Auto) 65 % (31-73) Lymphocytes (%) (Auto) 23 % (24-48) Monocytes (%) (Auto) 9 % (0-9) Eosinophils (%) (Auto) 3 % (0-3) Basophils (%) (Auto) 0 % (0-3) Neutrophils # (Auto) 6.7 x10^3/uL (1.8-7.7) Lymphocytes # (Auto) 2.4 x10^3/uL (1.0-4.8) Monocytes # (Auto) 0.9 x10^3/uL (0.0-1.1) Eosinophils # (Auto) 0.3 x10^3/uL (0.0-0.7) Basophils # (Auto) 0.0 x10^3/uL (0.0-0.2) Prothrombin Time 25.4 SEC (11.7-14.0) Prothromb Time International Ratio 2.3 (0.8-1.1) Sodium Level 162 mmol/L (136-145) Chloride Level 127 mmol/L (98-107) Carbon Dioxide Level 27 mmol/L (21-32) Anion Gap 8 (6-14) Blood Urea Nitrogen 17 mg/dL (8-26) Creatinine 0.9 mg/dL (0.7-1.3) Estimated GFR (Cockcroft-Gault) 91.7 BUN/Creatinine Ratio 19 (6-20) Glucose Level 130 mg/dL (70-99) Calcium Level 7.6 mg/dL (8.5-10.1) Total Bilirubin 14.4 mg/dL (0.2-1.0) Aspartate Amino Transf (AST/SGOT) 169 U/L (15-37) Alanine Aminotransferase (ALT/SGPT) 155 U/L (16-63) Alkaline Phosphatase 80 U/L (46-116) Total Protein 4.9 g/dL (6.4-8.2) Albumin 1.7 g/dL (3.4-5.0) Albumin/Globulin Ratio 0.5 (1.0-1.7) Microbiology 01/06/19 Blood Culture - Preliminary, Resulted NO GROWTH AFTER 3 DAYS 01/04/19 Urine Culture - Final, Complete 01/04/19 Urine Culture Result 1 (DONALD) - Final, Complete Medications Current Medications Iohexol (Omnipaque 240 Mg/ml) 30 ml 1X ONCE PO Last administered on 01/04/19at 15:15; Start 01/04/19 at 15:15; Stop 01/04/19 at 15:17; Status DC Iohexol (Omnipaque 300 Mg/ml) 75 ml 1X ONCE IV Last administered on 01/04/19at 16:20; Start 01/04/19 at 15:15; Stop 01/04/19 at 15:17; Status DC Info (CONTRAST GIVEN -- Rx MONITORING) 1 each PRN DAILY PRN MC SEE COMMENTS; Start 01/04/19 at 15:30; Stop 01/06/19 at 15:29; Status DC Multivitamins 10 ml/Thiamine HCl 100 mg/Folic Acid 1 mg/Sodium Chloride 1,011.2 ml @ 100 mls/ hr DAILY IV Last administered on 01/08/19at 08:12; Start 01/04/19 at 18:00; Stop 01/08/19 at 19:07; Status DC Chlordiazepoxide (Librium) 50 mg PRN Q1HR PRN PO For CIWA 8-14 Last administ ered on 01/04/19at 18:17; Start 01/04/19 at 17:45 Chlordiazepoxide (Librium) 100 mg PRN Q1HR PRN PO For CIWA 15 or greater Last administered on 01/05/19at 06:27; Start 01/04/19 at 17:45 Lorazepam (Ativan) 4 mg PRN Q1HR PRN PO For CIWA 8-14 Last administered on 01/04/19at 18:17; Start 01/04/19 at 17:45; Stop 01/10/19 at 07:34; Status DC Lorazepam (Ativan) 8 mg PRN Q1HR PRN PO For CIWA 15 or greater; Start 01/04/19 at 17:45; Stop 01/10/19 at 07:34; Status DC Haloperidol Lactate (Haldol Inj) 5 mg PRN Q4HRS PRN IVP Hallucinatns,Confusn,Delirium; Start 01/04/19 at 17:45 Diphenhydramine HCl (Benadryl) 25 mg PRN Q15MIN PRN IVP EPS symptoms 2'Haldol admin; Start 01/04/19 at 17:45 Clonidine HCl (Catapres) 0.1 mg PRN Q1HR PRN PO SBP > 180 or DBP > 100, MRX3 Last administered on 01/08/19at 07:18; Start 01/04/19 at 17:45; Stop 01/08/19 at 08:58; Status DC Lorazepam (Ativan Inj) 2 mg PRN Q1HR PRN IV For CIWA 8-14 Last administered on 01/09/19at 12:59; Start 01/04/19 at 19:15 Lorazepam (Ativan Inj) 4 mg PRN Q1HR PRN IV For CIWA 15 or greater Last administered on 01/05/19at 06:28; Start 01/04/19 at 19:15 Lorazepam (Ativan Inj) 2 mg PRN Q15MIN PRN IV SEE COMMENTS; Start 01/04/19 at 19:15; Status UNV Lorazepam (Ativan Inj) 4 mg PRN Q15MIN PRN IV SEE COMMENTS; Start 01/04/19 at 19:15; Status UNV Ondansetron HCl (Zofran) 4 mg PRN Q6HRS PRN IV NAUSEA/VOMITING Last administered on 01/04/19at 19:34; Start 01/04/19 at 19:30 Pantoprazole Sodium (PROTONIX VIAL for IV PUSH) 40 mg DAILYAC IVP Last administered on 01/06/19at 10:36; Start 01/06/19 at 10:00; Stop 01/06/19 at 12:17; Status DC Phytonadione (Vitamin K Ampule) 10 mg 1X ONCE SQ Last administered on 01/06/19at 10:36; Start 01/06/19 at 10:15; Stop 01/06/19 at 10:16; Status DC Piperacillin Sod/ Tazobactam Sod (Zosyn Per Pharmacy) 1 each PRN DAILY PRN MC SEE COMMENTS; Start 01/06/19 at 10:30 Piperacillin Sod/ Tazobactam Sod 3.375 gm/Sodium Chloride 50 ml @ 100 mls/hr Q6HRS IV Last administered on 01/10/19at 11:42; Start 01/06/19 at 11:00 Lactulose (Lactulose) 30 gm Q6HRS NG Last administered on 01/09/19at 05:53; Start 01/06/19 at 12:00; Stop 01/09/19 at 10:51; Status DC Metronidazole 100 ml @ 100 mls/hr Q8HRS IV Last administered on 01/09/19at 05:53; Start 01/06/19 at 14:00; Stop 01/09/19 at 07:19; Status DC Pantoprazole Sodium 80 mg/ Sodium Chloride 100 ml @ 10 mls/hr Q10H IV Last administered on 01/10/19at 02:31; Start 01/06/19 at 12:30; Stop 01/10/19 at 12:11; Status DC Octreotide Acetate 500 mcg/ Sodium Chloride 101 ml @ 0 mls/hr CONT PRN IV SEE I/O RECORD Last administered on 01/08/19at 06:08; Start 01/06/19 at 12:15; Stop 01/08/19 at 10:48; Status DC Norepinephrine Bitartrate 250 ml @ 14.235 mls/ hr CONT PRN IV SEE I/O RECORD; Start 01/06/19 at 20:15 Albumin Human 100 ml @ 100 mls/hr 1X ONCE IV Last administered on 01/06/19at 21:30; Start 01/06/19 at 20:15; Stop 01/06/19 at 21:14; Status DC Phytonadione (Vitamin K Ampule) 10 mg 1X ONCE SQ Last administered on 01/07/19at 13:04; Start 01/07/19 at 11:45; Stop 01/07/19 at 11:46; Status DC Albuterol/ Ipratropium (Duoneb) 3 ml RTQID NEB Last administered on 01/10/19at 11:39; Start 01/07/19 at 16:00 Sodium Chloride 1,000 ml @ 75 mls/hr [id number] IV Last administered on 01/08/19at 23:47; Start 01/08/19 at 06:00; Stop 01/09/19 at 10:19; Status DC Labetalol HCl (Normodyne Iv Push) 10 mg PRN Q4HRS PRN IVP HYPERTENSION; Start 01/08/19 at 09:00 Potassium Bicarbonate (Potassium Effervescent Tablet) 40 meq 1X ONCE PEG Last administered on 01/08/19at 12:24; Start 01/08/19 at 11:30; Stop 01/08/19 at 11:33; Status DC Potassium Bicarbonate (Potassium Effervescent Tablet) 40 meq 1X ONCE PEG Last administered on 01/08/19at 16:06; Start 01/08/19 at 16:00; Stop 01/08/19 at 16:01; Status DC Potassium Bicarbonate (Potassium Effervescent Tablet) 80 meq 1X ONCE PEG Last administered on 01/09/19at 06:58; Start 01/09/19 at 06:15; Stop 01/09/19 at 06:21; Status DC Artificial Tears (Artificial Tears) 1 drop PRN Q15MIN PRN OU DRY EYE Last administered on 01/09/19at 10:11; Start 01/09/19 at 10:00 Dextrose/Sodium Chloride 1,000 ml @ 75 mls/hr [id number] IV Last administered on 01/09/19at 11:03; Start 01/09/19 at 10:30; Stop 01/09/19 at 12:20; Status DC Potassium Chloride/Water 50 ml @ 50 mls/hr Q1H IV ; Start 01/09/19 at 10:30; Stop 01/09/19 at 12:29; Status UNV Potassium Chloride/Water 100 ml @ 100 mls/hr Q1H IV ; Start 01/09/19 at 11:00; Stop 01/09/19 at 11:00; Status DC Lactulose (Lactulose) 30 gm BID NG Last administered on 01/09/19at 20:52; Start 01/09/19 at 21:00; Stop 01/10/19 at 13:57; Status DC Dextrose 1,000 ml @ 150 mls/hr Q6H40M IV Last administered on 01/10/19at 10:36; Start 01/09/19 at 12:30 Info (Tpn Per Pharmacy) 1 each PRN DAILY PRN MC SEE COMMENTS Last administered on 01/10/19at 10:31; Start 01/09/19 at 15:15 Potassium Chloride 50 meq/ Potassium Phosphate 13.6 mmol/Magnesium Sulfate 10 meq/ Calcium Gluconate 10 meq/ Multivitamins 10 ml/Chromium/ Copper/Manganese/ Seleni/Zn 1 ml/ Total Parenteral Nutrition/Amino Acids/Dextrose/ Fat Emulsion Intravenous 1,512 ml @ 63 mls/hr TPN CONT IV Last administered on 01/09/19at 2 1:41; Start 01/09/19 at 22:00; Stop 01/10/19 at 21:59 Potassium Chloride/Water 50 ml @ 50 mls/hr Q1H IV Last administered on at 20:51; Start 01/09/19 at 18:00; Stop 01/09/19 at 21:59; Status DC Potassium Phosphate 13.6 mmol/Dextrose 254.5333 ml @ 62.646 m... 1X ONCE IV Last administered on 01/09/19at 21:49; Start 01/09/19 at 22:00; Stop 01/10/19 at 08:03; Status DC Potassium Chloride/Water 50 ml @ 50 mls/hr Q1H IV Last administered on 01/10/19at 11:41; Start 01/10/19 at 08:00; Stop 01/10/19 at 11:59; Status DC Sodium Phosphate 40 mmol/Dextrose 263.3333 ml @ 62.5 mls/hr 1X ONCE IV ; Start 01/10/19 at 08:00; Stop 01/10/19 at 08:49; Status DC Potassium Phosphate 12 mmol/ Sodium Chloride 254 ml @ 125 mls/hr Q2H IV Last administered on 01/10/19at 12:41; Start 01/10/19 at 08:00; Stop 01/10/19 at 11:59; Status DC Potassium Chloride 40 meq/ Potassium Acetate 40 meq/Potassium Phosphate 15 mmol/ Magnesium Sulfate 10 meq/Calcium Gluconate 10 meq/ Multivitamins 10 ml/Chromium/ Copper/Manganese/ Seleni/Zn 1 ml/ Total Parenteral Nutrition/Amino Acids/Dextrose/ Fat Emulsion Intravenous 1,512 ml @ 63 mls/hr TPN CONT IV ; Start 01/10/19 at 22:00; Stop 01/11/19 at 21:59 Pantoprazole Sodium (PROTONIX VIAL for IV PUSH) 40 mg BIDAC IVP ; Start 01/10/19 at 16:30 Active Scripts Active Reported Omeprazole 40 Mg Capsule. 1 Cap PO DAILY Vitals/I & O Vital Sign - Last 24 Hours 01/09/19 01/09/19 01/09/19 01/09/19 15:00 15:49 16:00 16:00 Temp 98.8 98.8 Pulse 95 89 Resp 20 20 B/P (MAP) 106/72 (83) 104/66 (79) Pulse Ox 100 100 100 O2 Delivery BiPAP/CPAP BiPAP/CPAP Bi-pap BiPAP/CPAP 01/09/19 01/09/19 01/09/19 01/09/19 17:00 18:00 19:00 19:48 Pulse 107 106 104 Resp 22 23 18 B/P (MAP) 93/62 (72) 103/68 (80) 99/62 (74) Pulse Ox 97 98 94 89 O2 Delivery Room Air Room Air Room Air Venturi Mask O2 Flow Rate 15.0 01/09/19 01/09/19 01/09/19 01/09/19 20:00 20:00 20:00 21:00 Temp 98.7 98.7 Pulse 101 105 Resp 17 31 B/P (MAP) 101/68 (79) 98/63 (75) Pulse Ox 97 97 O2 Delivery Room Air Room Air Room Air O2 Flow Rate 15.0 01/09/19 01/09/19 01/09/19 01/10/19 22:00 23:00 23:59 00:00 Pulse 101 89 Resp 22 22 B/P (MAP) 102/67 (79) 108/69 (82) Pulse Ox 95 96 O2 Delivery Room Air Room Air Room Air O2 Flow Rate 15.0 01/10/19 01/10/19 01/10/19 01/10/19 00:01 01:00 02:00 03:00 Temp 99.4 99.4 Pulse 89 89 89 96 Resp 22 22 22 20 B/P (MAP) 112/72 (85) 115/71 (86) 131/78 (95) 112/68 (83) Pulse Ox 97 97 97 99 O2 Delivery Room Air Room Air Room Air Room Air 01/10/19 01/10/19 01/10/19 01/10/19 04:00 04:00 04:00 05:00 Temp 98.6 98.6 Pulse 97 98 Resp 20 20 B/P (MAP) 119/74 (89) 117/72 (87) Pulse Ox 99 97 O2 Delivery Room Air Room Air Room Air O2 Flow Rate 15.0 01/10/19 01/10/19 01/10/19 01/10/19 06:00 07:00 08:00 08:00 Temp 98.8 98.8 Pulse 94 96 104 Resp 25 18 20 B/P (MAP) 124/78 (93) 132/90 (104) 125/82 (96) Pulse Ox 95 97 97 O2 Delivery Room Air Room Air Room Air Room Air 01/10/19 01/10/19 01/10/19 01/10/19 08:47 09:00 10:00 11:00 Pulse 92 98 102 Resp 22 22 B/P (MAP) 125/85 (98) 115/78 (90) 113/72 (86) Pulse Ox 97 97 97 98 O2 Delivery Room Air Room Air Room Air Room Air 01/10/19 01/10/19 01/10/19 01/10/19 11:39 12:00 12:00 13:00 Temp 97.9 97.9 Pulse 100 96 Resp 25 21 B/P (MAP) 134/82 (99) 118/74 (89) Pulse Ox 97 96 95 O2 Delivery Room Air Room Air Room Air Room Air 01/10/19 14:00 Pulse 94 Resp 25 B/P (MAP) 114/71 (85) Pulse Ox 97 O2 Delivery Room Air Intake and Output 01/09/19 01/09/19 01/10/19 15:00 23:00 07:00 Intake Total 496 ml 695.08 ml 2798 ml Output Total 675 ml 920 ml 415 ml Balance -179 ml -224.92 ml 2383 ml ISHAAN GIFFORD MD Jan 10, 2019 14:27
[2019-01-10] MEDS: LACTULOSE 20 GM/30 ML SOLUTION. NG SCH (16:43)
--- NOTE | 2019-01-10 16:43 | PDOC ---
PROGRESS NOTES Assessment Assessment Metabolic encephalopathy. Toxic encephalopathy. Respiratory failure. Alcohol intoxication. Lactic acidosis. Hepatic Injury. Elevated ammonia level. Thrombocytopenia. Coagulopathy, elevated PT/INR related to hepatic disease likely. Cirrhosis. Colitis. HTN. Substances abuse, alcohol. RECOMMENDATIONS/PLAN: EEG. Vit B1. Treat medical and hematologic diseases. ID on team. HCT w/o contrast on 01/07/19: negative without ICH. HISTORY OF THE PRESENT ILLNESS: This is a 43-year-old male with history of alcohol abuse went unresponsive status. According to his family, he has a history of drinking alcohol heavily in the last 22 years, averaging 30-60 beers a day. Over the last year, he has been depressed, shaky and not well-coordinated with falls. He could not work regularly. He tried to quit drinking a few times but but failed maintain abstinence. He had nosebleeds, blood in urine and skin and soft tissue bruises. He has been unresponsiveness since here. His daughter says he has lost about 50 pounds in a span of 3 month period last year. 01/10/19: Gained consciousness. PAST MEDICAL HISTORY: Depression, hypertension, GERD, panic attacks. PAST SURGICAL HISTORY: No significant past surgical history. SOCIAL HISTORY: The patient is and lives at home. Used to work at a [employer] and [employer]. He migrated to the [place] from [place] about 19 years ago. He has 2 daughters. Heavy alcohol as mentioned above. FAMILY HISTORY: Noncontributory. ALLERGIES: No known drug allergies. REVIEW OF SYSTEMS: Refer to PMH and PSH. Otherwise, all other review of systems limited as the patient is unresponsiveness. PHYSICAL EXAMINATION: General appearance is in subacute distress. HEENT: Normocephalic and nontraumatic. Eyes, nose, ears, and throat are unremarkable. Neck is supple. No lymphadenopathy. No crepitus. Cardiovascular: S1, S2, regular rate and rhythm. Pulmonary: On .. Abdomen: Bowel sounds are positive. Extremities: Bruises in extremities. No restriction of range of motion NEUROLOGICAL EXAMINATION: Awake from time to time. Able to understand a few questions. Not oriented to time, place and person. PERRL. EOMI not elicited. CN: no focal findings. Muscle tone: Decreased. Muscle strength: minimal movements to stimuli. DTR: 1 Plantar reflex: No response bilaterally Gait: not able to walk. Sensory exam: no response.. Not able to access cerebellar signs. F-T-N test not performed. Objective Objective Vital Signs Date Time Temp Pulse Resp B/P (MAP) Pulse Ox O2 Delivery O2 Flow Rate FiO2 01/10/19 16:20 96 Room Air 01/10/19 16:00 98.7 104 26 118/75 (89) 98.7 01/10/19 04:00 15.0 Intake and Output 01/10/19 07:00 Intake Total 3989.08 ml Output Total 2010 ml Balance 1979.08 ml IV Total 3989.08 ml Output Urine Total 1110 ml Stool Total 300 ml Gastric Drainage Total 400 ml Other 200 ml Vitals Signs Vitals VS - Last 72 Hours, by Label Date Time Temp Pulse Resp B/P (MAP) Pulse Ox O2 Delivery O2 Flow Rate FiO2 01/10/19 16:20 96 Room Air 01/10/19 16:00 Room Air 01/10/19 16:00 98.7 104 26 118/75 (89) 96 Room Air 98.7 01/10/19 15:00 94 28 109/71 (84) 96 Room Air 01/10/19 14:00 94 25 114/71 (85) 97 Room Air 01/10/19 13:00 96 21 118/74 (89) 95 Room Air 01/10/19 12:00 97.9 100 25 134/82 (99) 96 Room Air 97.9 01/10/19 12:00 Room Air 01/10/19 11:39 97 Room Air 01/10/19 11:00 102 22 113/72 (86) 98 Room Air 01/10/19 10:00 98 25 115/78 (90) 97 Room Air 01/10/19 09:00 92 22 125/85 (98) 97 Room Air 01/10/19 08:47 97 Room Air 01/10/19 08:00 Room Air 01/10/19 08:00 98.8 104 20 125/82 (96) 97 Room Air 98.8 01/10/19 07:00 96 18 132/90 (104) 97 Room Air 01/10/19 06:00 94 25 124/78 (93) 95 Room Air 01/10/19 05:00 98 20 117/72 (87) 97 Room Air 01/10/19 04:00 Room Air 01/10/19 04:00 98.6 97 20 119/74 (89) 99 Room Air 98.6 01/10/19 04:00 15.0 01/10/19 03:00 96 20 112/68 (83) 99 Room Air 01/10/19 02:00 89 22 131/78 (95) 97 Room Air 01/10/19 01:00 99.4 89 22 115/71 (86) 97 Room Air 99.4 01/10/19 00:01 89 22 112/72 (85) 97 Room Air 01/10/19 00:00 15.0 01/09/19 23:59 Room Air 01/09/19 23:00 89 22 108/69 (82) 96 Room Air 01/09/19 22:00 101 22 102/67 (79) 95 Room Air 01/09/19 21:00 105 31 98/63 (75) 97 Room Air 01/09/19 20:00 15.0 01/09/19 20:00 98.7 101 17 101/68 (79) 97 Room Air 98.7 01/09/19 20:00 Room Air 01/09/19 19:48 89 Venturi Mask 15.0 01/09/19 19:00 104 18 99/62 (74) 94 Room Air 01/09/19 18:00 106 23 103/68 (80) 98 Room Air 01/09/19 17:00 107 22 93/62 (72) 97 Room Air 01/09/19 16:00 98.8 89 20 104/66 (79) 100 BiPAP/CPAP 98.8 01/09/19 16:00 Bi-pap 01/09/19 15:49 100 BiPAP/CPAP 01/09/19 15:00 95 20 106/72 (83) 100 BiPAP/CPAP 01/09/19 14:00 98 20 117/81 (93) 100 BiPAP/CPAP 01/09/19 13:00 108 20 120/85 (97) 100 BiPAP/CPAP 01/09/19 12:00 99.6 108 20 118/76 (90) 100 BiPAP/CPAP 99.6 01/09/19 12:00 Bi-pap 01/09/19 11:48 100 BiPAP/CPAP 01/09/19 11:00 107 20 113/70 (84) 100 BiPAP/CPAP 01/09/19 10:00 106 20 111/75 (87) 100 BiPAP/CPAP 01/09/19 09:00 117 20 132/88 (103) 100 BiPAP/CPAP 01/09/19 08:00 Bi-pap 01/09/19 08:00 99.7 112 20 135/86 (102) 100 BiPAP/CPAP 99.7 01/09/19 07:50 99 BiPAP/CPAP 01/09/19 07:00 104 18 127/80 (96) 100 BiPAP/CPAP Laboratory Laboratory Laboratory Tests Test 01/09/19 16:52 01/10/19 05:50 Glucose (Fingerstick) 149 mg/dL (70-99) White Blood Count 10.3 x10^3/uL (4.0-11.0) Red Blood Count 2.16 x10^6/uL (4.30-5.70) Hemoglobin 7.7 g/dL (13.0-17.5) Hematocrit 22.9 % (39.0-53.0) Mean Corpuscular Volume 106 fL (79-100) Mean Corpuscular Hemoglobin 36 pg (25-35) Mean Corpuscular Hemoglobin Concent 34 g/dL (31-37) Red Cell Distribution Width 24.9 % (11.5-14.5) Platelet Count 80 x10^3/uL (140-400) Neutrophils (%) (Auto) 65 % (31-73) Lymphocytes (%) (Auto) 23 % (24-48) Monocytes (%) (Auto) 9 % (0-9) Eosinophils (%) (Auto) 3 % (0-3) Basophils (%) (Auto) 0 % (0-3) Neutrophils # (Auto) 6.7 x10^3/uL (1.8-7.7) Lymphocytes # (Auto) 2.4 x10^3/uL (1.0-4.8) Monocytes # (Auto) 0.9 x10^3/uL (0.0-1.1) Eosinophils # (Auto) 0.3 x10^3/uL (0.0-0.7) Basophils # (Auto) 0.0 x10^3/uL (0.0-0.2) Prothrombin Time 25.4 SEC (11.7-14.0) Prothromb Time International Ratio 2.3 (0.8-1.1) Sodium Level 162 mmol/L (136-145) Potassium Level 2.8 mmol/L (3.5-5.1) Chloride Level 127 mmol/L (98-107) Carbon Dioxide Level 27 mmol/L (21-32) Anion Gap 8 (6-14) Blood Urea Nitrogen 17 mg/dL (8-26) Creatinine 0.9 mg/dL (0.7-1.3) Estimated GFR (Cockcroft-Gault) 91.7 BUN/Creatinine Ratio 19 (6-20) Glucose Level 130 mg/dL (70-99) Calcium Level 7.6 mg/dL (8.5-10.1) Phosphorus Level 1.9 mg/dL (2.6-4.7) Magnesium Level 2.2 mg/dL (1.8-2.4) Total Bilirubin 14.4 mg/dL (0.2-1.0) Aspartate Amino Transf (AST/SGOT) 169 U/L (15-37) Alanine Aminotransferase (ALT/SGPT) 155 U/L (16-63) Alkaline Phosphatase 80 U/L (46-116) Total Protein 4.9 g/dL (6.4-8.2) Albumin 1.7 g/dL (3.4-5.0) Albumin/Globulin Ratio 0.5 (1.0-1.7) Microbiology 01/06/19 Blood Culture - Preliminary, Resulted NO GROWTH AFTER 3 DAYS 01/04/19 Urine Culture - Final, Complete 01/04/19 Urine Culture Result 1 (DONALD) - Final, Complete Medication Medications Current Medications Lactulose (Lactulose) 30 gm BID NG Last administered on 01/09/19at 20:52; Start 01/09/19 at 21:00; Stop 01/10/19 at 13:57; Status DC Pantoprazole Sodium (PROTONIX VIAL for IV PUSH) 40 mg BIDAC IVP ; Start 01/10/19 at 16:30 Potassium Chloride 40 meq/ Potassium Acetate 40 meq/Potassium Phosphate 15 mmol/ Magnesium Sulfate 10 meq/Calcium Gluconate 10 meq/ Multivitamins 10 ml/Chromium/ Copper/Manganese/ Seleni/Zn 1 ml/ Total Parenteral Nutrition/Amino Acids/Dextrose/ Fat Emulsion Intravenous 1,512 ml @ 63 mls/hr TPN CONT IV ; Start 01/10/19 at 22:00; Stop 01/11/19 at 21:59 Potassium Chloride 50 meq/ Potassium Phosphate 13.6 mmol/Magnesium Sulfate 10 meq/ Calcium Gluconate 10 meq/ Multivitamins 10 ml/Chromium/ Copper/Manganese/ Seleni/Zn 1 ml/ Total Parenteral Nutrition/Amino Acids/Dextrose/ Fat Emulsion Intravenous 1,512 ml @ 63 mls/hr TPN CONT IV Last administered on 01/09/19at 21:41; Start 01/09/19 at 22:00; Stop 01/10/19 at 21:59 Potassium Chloride/Water 50 ml @ 50 mls/hr Q1H IV Last administered on 01/09/19at 20:51; Start 01/09/19 at 18:00; Stop 01/09/19 at 21:59; Status DC Potassium Chloride/Water 50 ml @ 50 mls/hr Q1H IV Last administered on 01/10/19at 11:41; Start 01/10/19 at 08:00; Stop 01/10/19 at 11:59; Status DC Potassium Phosphate 12 mmol/ Sodium Chloride 254 ml @ 125 mls/hr Q2H IV Last administered on 01/10/19at 15:24; Start 01/10/19 at 08:00; Stop 01/10/19 at 11:59; Status DC Potassium Phosphate 13.6 mmol/Dextrose 254.5333 ml @ 62.646 m... 1X ONCE IV Last administered on 01/09/19at 21:49; Start 01/09/19 at 22:00; Stop 01/10/19 at 08:03; Status DC Sodium Phosphate 40 mmol/Dextrose 263.3333 ml @ 62.5 mls/hr 1X ONCE IV ; Start 01/10/19 at 08:00; Stop 01/10/19 at 08:49; Status DC Comment Review of Relevant I have reviewed the following items pierre (where applicable) has been applied. MAGY BLUE MD Jan 10, 2019 16:43
[2019-01-10] MEDS: PANTOPRAZOLE IV PUSH 40 MG VIAL. IVP SCH (16:44)
[2019-01-10 18:22] LABS: CALCIUM 7.4 mg/dL (8.5-10.1); CREATININE 0.9 mg/dL (0.7-1.3); GFR 91.7; PHOSPHORUS 3.1 mg/dL (2.6-4.7); POTASSIUM 4.1 mmol/L (3.5-5.1)
--- NOTE | 2019-01-10 18:30 | NUR ---
NG tube clamped at 1630. Patient had 240 ml of thickened juice. Will monitor for nausea, and or vomitting.
[2019-01-10] MEDS ORDERED: 1/2 NORMAL SALINE IV ONE (19:30)
[2019-01-10] MEDS ORDERED: TOTAL PARENTERAL NUTRITION IV SCH ×10 (22:00)
[2019-01-10] MEDS ORDERED: [UNRECOGNIZED DRUG - OTHER] IV SCH ×10 (22:00)
[2019-01-10] MEDS ORDERED: AMINO ACID IV SCH ×10 (22:00)
[2019-01-10] MEDS ORDERED: DEXTROSE 70% IV SCH ×10 (22:00)
[2019-01-11] VITALS (24 sets, daily range): BP systolic 106–123; BP diastolic 62–86
[2019-01-11 02:09] LABS: SODIUM, URINE <60 mmol/L (Not Estab.); UR POTASSIUM 96.7 mmol/L (Not Estab.)
[2019-01-11 06:01] LABS: BASO # 0.1 x10^3/uL (0.0-0.2); BASO % 1 % (0-3); EOS # 0.6 x10^3/uL (0.0-0.7); EOS % 5 % (0-3); HEMATOCRIT 23.3 % (39.0-53.0); HEMOGLOBIN 7.9 g/dL (13.0-17.5); LYMPH # 2.5 x10^3/uL (1.0-4.8); LYMPH % 21 % (24-48); MEAN CORPUSCULAR HEMOGLOBIN 36 pg (25-35); MEAN CORPUSCULAR HGB CONC 34 g/dL (31-37); MEAN CORPUSCULAR VOLUME 106 fL (79-100); MONO % 8 % (0-9); NEUT # 7.9 x10^3/uL (1.8-7.7); NEUT % 65 % (31-73); PLATELET COUNT 68 x10^3/uL (140-400); WHITE BLOOD COUNT 12.1 x10^3/uL (4.0-11.0)
[2019-01-11] MEDS: PIPERACILLIN/TAZOBACTAM 3.375 GM in IV NORMAL SALINE 50ML 50 ML IV SCH ×3 (06:04→17:22)
[2019-01-11] MEDS: IV DEXTROSE 5% 1,000 ML IV SCH ×2 (06:04→14:00)
--- NOTE | 2019-01-11 06:25 | PDOC ---
Infectious Disease Note Subjective Subjective Alert - Denies F/C/S/PATTON/SOA/N/itch Wants to go home ROS ROS o/w neg Vital Sign Vital Signs Vital Signs Date Time Temp Pulse Resp B/P (MAP) Pulse Ox O2 Delivery O2 Flow Rate FiO2 01/11/19 05:00 105 32 117/72 (87) 96 Room Air 01/11/19 04:00 98.6 98.6 Physical Exam PHYSICAL EXAM GEN: alert and comfortable HEENT: Pupils equally round and reactive. Icterus. NG tube in place -mouth is moist NECK: Supple. LUNGS: decreased in bases HEART: S1 and S2 regular ABDOMEN: Mildly distended, soft, no grimace or guarding to palpation. Bowel sounds present. Rectal tube GENITOURINARY: Indwelling Galdamez in place. Urine is dark and concentrated. EXTREMITIES: No gross edema or cyanosis IVS: RIJ -clean SKIN: Warm to touch. He has multiple ecchymoses, especially lower extremities. NEUROLOGIC: Alert and follows simple commands Labs Lab Laboratory Tests Test 01/10/19 11:00 01/10/19 17:55 01/11/19 05:50 Urine Sodium <60 mmol/L (Not Estab.) Urine Potassium 96.7 mmol/L (Not Estab.) Urine Chloride <60 mmol/L (Not Estab.) Sodium Level 159 mmol/L (136-145) Potassium Level 4.1 mmol/L (3.5-5.1) Chloride Level 124 mmol/L (98-107) Carbon Dioxide Level 24 mmol/L (21-32) Anion Gap 11 (6-14) Blood Urea Nitrogen 16 mg/dL (8-26) Creatinine 0.9 mg/dL (0.7-1.3) Estimated GFR (Cockcroft-Gault) 91.7 Glucose Level 98 mg/dL (70-99) Calcium Level 7.4 mg/dL (8.5-10.1) Phosphorus Level 3.1 mg/dL (2.6-4.7) White Blood Count 12.1 x10^3/uL (4.0-11.0) Red Blood Count 2.20 x10^6/uL (4.30-5.70) Hemoglobin 7.9 g/dL (13.0-17.5) Hematocrit 23.3 % (39.0-53.0) Mean Corpuscular Volume 106 fL (79-100) Mean Corpuscular Hemoglobin 36 pg (25-35) Mean Corpuscular Hemoglobin Concent 34 g/dL (31-37) Red Cell Distribution Width 25.0 % (11.5-14.5) Platelet Count 68 x10^3/uL (140-400) Neutrophils (%) (Auto) 65 % (31-73) Lymphocytes (%) (Auto) 21 % (24-48) Monocytes (%) (Auto) 8 % (0-9) Eosinophils (%) (Auto) 5 % (0-3) Basophils (%) (Auto) 1 % (0-3) Neutrophils # (Auto) 7.9 x10^3/uL (1.8-7.7) Lymphocytes # (Auto) 2.5 x10^3/uL (1.0-4.8) Monocytes # (Auto) 1.0 x10^3/uL (0.0-1.1) Eosinophils # (Auto) 0.6 x10^3/uL (0.0-0.7) Basophils # (Auto) 0.1 x10^3/uL (0.0-0.2) Micro Microbiology 01/06/19 Blood Culture - Preliminary, Resulted NO GROWTH AFTER 1 DAY 01/04/19 Urine Culture - Final, Complete 01/04/19 Urine Culture Result 1 (DONALD) - Final, Complete Objective Assessment Fever resolved - cults neg Leukocytosis - mild increase ? reactive - clinically much better Thrombocytopenia - trending ? liver disease possible med Transaminitis - ow on TPN Multi-Organ Failure -stable ? 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 F/u Liver mass per GI F/u BC x 2 F/u labs - in am DNR/DNI D/w nursing Poor prognosis Critically ill GLADYS BURGOS MD Jan 11, 2019 06:24
[2019-01-11 06:44] LABS: ALBUMIN 1.7 g/dL (3.4-5.0); ALBUMIN/GLOBULIN RATIO 0.5 (1.0-1.7); CALCIUM 7.5 mg/dL (8.5-10.1); CREATININE 0.9 mg/dL (0.7-1.3); GFR 91.7; MAGNESIUM 1.9 mg/dL (1.8-2.4); PHOSPHORUS 2.8 mg/dL (2.6-4.7); POTASSIUM 4.1 mmol/L (3.5-5.1); TOTAL BILIRUBIN 17.2 mg/dL (0.2-1.0); TOTAL PROTEIN 5.1 g/dL (6.4-8.2)
[2019-01-11] MEDS: IPRATRPIUM/ALBUTEROL 0.5/2.5MG 3 ML NEBU. NEB SCH ×4 (07:57→20:19)
[2019-01-11] MEDS: PANTOPRAZOLE IV PUSH 40 MG VIAL. IVP SCH ×2 (09:02→17:21)
--- NOTE | 2019-01-11 09:20 | NUR ---
Patient removed NG tube at 0900. NG tube has been clamped since 01/10 at 1630. Patient not currently experiencing any nausea or vomiting. Will continue to monitor.
--- NOTE | 2019-01-11 09:46 | PDOC ---
SUBJECTIVE ROS Awake , more alert OBJECTIVE Vital Signs Vital Signs Date Time Temp Pulse Resp B/P (MAP) Pulse Ox O2 Delivery O2 Flow Rate FiO2 01/11/19 09:00 104 30 122/69 (86) 96 Room Air 01/11/19 08:00 98.7 98.7 I & 0 Intake and Output 01/11/19 07:00 Intake Total 8394.55 ml Output Total 1400 ml Balance 6994.55 ml Intake Oral 350 ml IV Total 8044.55 ml Output Urine Total 900 ml Stool Total 300 ml Gastric Drainage Total 200 ml PHYSICAL EXAM Physical Exam GENERAL:awake, alert HEENT: Icterus. NECK: Supple. LUNGS: decreased in bases HEART: S1 and S2 regular ABDOMEN: Mildly distended, soft, GENITOURINARY: Indwelling Galdamez in place. Urine dark and concentrated. EXTREMITIES: No gross edema or cyanosis SKIN: multiple ecchymoses,no rash . 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 - CT he ad -neg Was getting Lactulose , recommend holding if GI agrees - Ammonia normal now Coagulopathy - S/p FFP and Vit K Pancreatitis, lipase >3400 Hepatic mass Possible cholecystitis on U/S COMMENT/RELEVANT DATA Meds Current Medications Medications (Trade) Dose Ordered Sig/Amrik Start Time Stop Time Status Last Admin Dose Admin Albumin Human 100 ml @ 100 mls/hr 1X ONCE 01/06/19 20:15 01/06/19 21:14 DC 01/06/19 21:30 100 MLS/HR Albuterol/ Ipratropium (Duoneb) 3 ml RTQID 01/07/19 16:00 01/11/19 07:57 3 ML Artificial Tears (Artificial Tears) 1 drop PRN Q15MIN PRN 01/09/19 10:00 01/09/19 10:11 1 DROP Chlordiazepoxide (Librium) 100 mg PRN Q1HR PRN 01/04/19 17:45 01/05/19 06:27 100 MG Clonidine HCl (Catapres) 0.1 mg PRN Q1HR PRN 7/12/19 17:45 01/08/19 08:58 DC 01/08/19 07:18 0.1 MG Dextrose 1,000 ml @ 150 mls/hr Q6H40M 01/09/19 12:30 01/11/19 06:04 150 MLS/HR Dextrose/Sodium Chloride 1,000 ml @ 75 mls/hr [id number] 01/09/19 10:30 01/09/19 12:20 DC 01/09/19 11:03 75 MLS/HR Diphenhydramine HCl (Benadryl) 25 mg PRN Q15MIN PRN 01/04/19 17:45 Haloperidol Lactate (Haldol Inj) 5 mg PRN Q4HRS PRN 01/04/19 17:45 Info (CONTRAST GIVEN -- Rx MONITORING) 1 each PRN DAILY PRN 01/04/19 15:30 01/06/19 15:29 DC Info (Tpn Per Pharmacy) 1 each PRN DAILY PRN 01/09/19 15:15 01/10/19 10:31 1 EACH Iohexol (Omnipaque 240 Mg/ml) 30 ml 1X ONCE 01/04/19 15:15 01/04/19 15:17 DC 01/04/19 15:15 30 ML Iohexol (Omnipaque 300 Mg/ml) 75 ml 1X ONCE 01/04/19 15:15 01/04/19 15:17 DC 01/04/19 16:20 75 ML Labetalol HCl (Normodyne Iv Push) 10 mg PRN Q4HRS PRN 01/08/19 09:00 Lactulose (Lactulose) 30 gm BID 01/09/19 21:00 01/10/19 13:57 DC 01/09/19 20:52 30 GM Lorazepam (Ativan Inj) 1 mg PRN Q6HRS PRN 01/10/19 23:15 01/10/19 23:23 1 MG Lorazepam (Ativan) 8 mg PRN Q1HR PRN 01/04/19 17:45 01/10/19 07:34 DC Metronidazole 100 ml @ 100 mls/hr Q8HRS 01/06/19 14:00 01/09/19 07:19 DC 01/09/19 05:53 100 MLS/HR Multivitamins 10 ml/Thiamine HCl 100 mg/Folic Acid 1 mg/Sodium Chloride 1,011.2 ml @ 100 mls/ hr DAILY 01/04/19 18:00 01/08/19 19:07 DC 01/08/19 08:12 100 MLS/HR Norepinephrine Bitartrate 250 ml @ 14.235 mls/ hr CONT PRN 01/06/19 20:15 Octreotide Acetate 500 mcg/ Sodium Chloride 101 ml @ 0 mls/hr CONT PRN 01/06/19 12:15 01/08/19 10:48 DC 01/08/19 06:08 5 MLS/HR Ondansetron HCl (Zofran) 4 mg PRN Q6HRS PRN 01/04/19 19:30 01/04/19 19:34 4 MG Pantoprazole Sodium (PROTONIX VIAL for IV PUSH) 40 mg BIDAC 01/10/19 16:30 01/11/19 09:02 40 MG Pantoprazole Sodium 80 mg/ Sodium Chloride 100 ml @ 10 mls/hr Q10H 01/06/19 12:30 01/10/19 12:11 DC 01/10/19 02:31 10 MLS/HR Phytonadione (Vitamin K Ampule) 10 mg 1X ONCE 01/07/19 11:45 01/07/19 11:46 DC 01/07/19 13:04 10 MG Piperacillin Sod/ Tazobactam Sod (Zosyn Per Pharmacy) 1 each PRN DAILY PRN 01/06/19 10:30 Piperacillin Sod/ Tazobactam Sod 3.375 gm/Sodium Chloride 50 ml @ 100 mls/hr Q6HRS 01/06/19 11:00 01/11/19 06:04 100 MLS/HR Potassium Bicarbonate (Potassium Effervescent Tablet) 80 meq 1X ONCE 01/09/19 06:15 01/09/19 06:21 DC 01/09/19 06:58 80 MEQ Potassium Chloride 40 meq/ Potassium Acetate 40 meq/Potassium Phosphate 15 mmol/ Magnesium Sulfate 10 meq/Calcium Gluconate 10 meq/ Multivitamins 10 ml/Chromium/ Copper/Manganese/ Seleni/Zn 1 ml/ Total Parenteral Nutrition/Amino Acids/Dextrose/ Fat Emulsion Intravenous 1,512 ml @ 63 mls/hr TPN CONT 01/10/19 22:00 01/11/19 21:59 01/10/19 22:08 63 MLS/HR Potassium Chloride 50 meq/ Potassium Phosphate 13.6 mmol/Magnesium Sulfate 10 meq/ Calcium Gluconate 10 meq/ Multivitamins 10 ml/Chromium/ Copper/Manganese/ Seleni/Zn 1 ml/ Total Parenteral Nutrition/Amino Acids/Dextrose/ Fat Emulsion Intravenous 1,512 ml @ 63 mls/hr TPN CONT 01/09/19 22:00 01/10/19 21:59 DC 01/09/19 21:41 63 MLS/HR Potassium Chloride/Water 50 ml @ 50 mls/hr Q1H 01/10/19 08:00 01/10/19 11:59 DC 01/10/19 11:41 50 MLS/HR Potassium Phosphate 12 mmol/ Sodium Chloride 254 ml @ 125 mls/hr Q2H 01/10/19 08:00 01/10/19 11:59 DC 01/10/19 15:24 125 MLS/HR Potassium Phosphate 13.6 mmol/Dextrose 254.5333 ml @ 62.646 m... 1X ONCE 01/09/19 22:00 01/10/19 08:03 DC 01/09/19 21:49 62.646 MLS/HR Sodium Chloride 250 ml @ 250 mls/hr 1X ONCE 01/10/19 19:30 01/10/19 20:29 DC 01/10/19 19:30 250 MLS/HR Sodium Phosphate 40 mmol/Dextrose 263.3333 ml @ 62.5 mls/hr 1X ONCE 01/10/19 08:00 01/10/19 08:49 DC Lab Laboratory Tests Test 01/10/19 11:00 01/10/19 17:55 01/11/19 05:50 Urine Sodium <60 mmol/L (Not Estab.) Urine Potassium 96.7 mmol/L (Not Estab.) Urine Chloride <60 mmol/L (Not Estab.) Sodium Level 159 mmol/L (136-145) 151 mmol/L (136-145) Potassium Level 4.1 mmol/L (3.5-5.1) 4.1 mmol/L (3.5-5.1) Chloride Level 124 mmol/L (98-107) 121 mmol/L (98-107) Carbon Dioxide Level 24 mmol/L (21-32) 25 mmol/L (21-32) Anion Gap 11 (6-14) 5 (6-14) Blood Urea Nitrogen 16 mg/dL (8-26) 15 mg/dL (8-26) Creatinine 0.9 mg/dL (0.7-1.3) 0.9 mg/dL (0.7-1.3) Estimated GFR (Cockcroft-Gault) 91.7 91.7 Glucose Level 98 mg/dL (70-99) 145 mg/dL (70-99) Calcium Level 7.4 mg/dL (8.5-10.1) 7.5 mg/dL (8.5-10.1) Phosphorus Level 3.1 mg/dL (2.6-4.7) 2.8 mg/dL (2.6-4.7) White Blood Count 12.1 x10^3/uL (4.0-11.0) Red Blood Count 2.20 x10^6/uL (4.30-5.70) Hemoglobin 7.9 g/dL (13.0-17.5) Hematocrit 23.3 % (39.0-53.0) Mean Corpuscular Volume 106 fL (79-100) Mean Corpuscular Hemoglobin 36 pg (25-35) Mean Corpuscular Hemoglobin Concent 34 g/dL (31-37) Red Cell Distribution Width 25.0 % (11.5-14.5) Platelet Count 68 x10^3/uL (140-400) Neutrophils (%) (Auto) 65 % (31-73) Lymphocytes (%) (Auto) 21 % (24-48) Monocytes (%) (Auto) 8 % (0-9) Eosinophils (%) (Auto) 5 % (0-3) Basophils (%) (Auto) 1 % (0-3) Neutrophils # (Auto) 7.9 x10^3/uL (1.8-7.7) Lymphocytes # (Auto) 2.5 x10^3/uL (1.0-4.8) Monocytes # (Auto) 1.0 x10^3/uL (0.0-1.1) Eosinophils # (Auto) 0.6 x10^3/uL (0.0-0.7) Basophils # (Auto) 0.1 x10^3/uL (0.0-0.2) Prothrombin Time 23.0 SEC (11.7-14.0) Prothromb Time International Ratio 2.1 (0.8-1.1) BUN/Creatinine Ratio 17 (6-20) Magnesium Level 1.9 mg/dL (1.8-2.4) Total Bilirubin 17.2 mg/dL (0.2-1.0) Aspartate Amino Transf (AST/SGOT) 122 U/L (15-37) Alanine Aminotransferase (ALT/SGPT) 133 U/L (16-63) Alkaline Phosphatase 88 U/L (46-116) Total Protein 5.1 g/dL (6.4-8.2) Albumin 1.7 g/dL (3.4-5.0) Albumin/Globulin Ratio 0.5 (1.0-1.7) Results All relevant outside records, renal labs, imaging studies, telemetry/EKG's were reviewed. APRIL SERVIN MD Jan 11, 2019 09:46
--- NOTE | 2019-01-11 11:19 | PDOC ---
PULMONARY PROGRESS NOTES Subjective off BIPAP, fully awake Vitals Vital Signs Date Time Temp Pulse Resp B/P (MAP) Pulse Ox O2 Delivery O2 Flow Rate FiO2 01/11/19 11:14 97 Room Air 01/11/19 11:00 97 29 108/68 (81) 01/11/19 08:00 98.7 98.7 General: Alert, No acute distress Lungs: Other (decrease bs) Cardiovascular: S1 Abdomen: Soft Extremities: Other (1+edema) Labs Laboratory Tests Test 01/09/19 16:15 01/09/19 16:52 01/10/19 05:50 01/10/19 11:00 Potassium Level 2.7 mmol/L (3.5-5.1) 2.8 mmol/L (3.5-5.1) Phosphorus Level 2.0 mg/dL (2.6-4.7) 1.9 mg/dL (2.6-4.7) Magnesium Level 2.3 mg/dL (1.8-2.4) 2.2 mg/dL (1.8-2.4) Triglycerides Level 69 mg/dL (0-150) Glucose (Fingerstick) 149 mg/dL (70-99) White Blood Count 10.3 x10^3/uL (4.0-11.0) Red Blood Count 2.16 x10^6/uL (4.30-5.70) Hemoglobin 7.7 g/dL (13.0-17.5) Hematocrit 22.9 % (39.0-53.0) Mean Corpuscular Volume 106 fL (79-100) Mean Corpuscular Hemoglobin 36 pg (25-35) Mean Corpuscular Hemoglobin Concent 34 g/dL (31-37) Red Cell Distribution Width 24.9 % (11.5-14.5) Platelet Count 80 x10^3/uL (140-400) Neutrophils (%) (Auto) 65 % (31-73) Lymphocytes (%) (Auto) 23 % (24-48) Monocytes (%) (Auto) 9 % (0-9) Eosinophils (%) (Auto) 3 % (0-3) Basophils (%) (Auto) 0 % (0-3) Neutrophils # (Auto) 6.7 x10^3/uL (1.8-7.7) Lymphocytes # (Auto) 2.4 x10^3/uL (1.0-4.8) Monocytes # (Auto) 0.9 x10^3/uL (0.0-1.1) Eosinophils # (Auto) 0.3 x10^3/uL (0.0-0.7) Basophils # (Auto) 0.0 x10^3/uL (0.0-0.2) Prothrombin Time 25.4 SEC (11.7-14.0) Prothromb Time International Ratio 2.3 (0.8-1.1) Sodium Level 162 mmol/L (136-145) Chloride Level 127 mmol/L (98-107) Carbon Dioxide Level 27 mmol/L (21-32) Anion Gap 8 (6-14) Blood Urea Nitrogen 17 mg/dL (8-26) Creatinine 0.9 mg/dL (0.7-1.3) Estimated GFR (Cockcroft-Gault) 91.7 BUN/Creatinine Ratio 19 (6-20) Glucose Level 130 mg/dL (70-99) Calcium Level 7.6 mg/dL (8.5-10.1) Total Bilirubin 14.4 mg/dL (0.2-1.0) Aspartate Amino Transf (AST/SGOT) 169 U/L (15-37) Alanine Aminotransferase (ALT/SGPT) 155 U/L (16-63) Alkaline Phosphatase 80 U/L (46-116) Total Protein 4.9 g/dL (6.4-8.2) Albumin 1.7 g/dL (3.4-5.0) Albumin/Globulin Ratio 0.5 (1.0-1.7) Urine Sodium <60 mmol/L (Not Estab.) Urine Potassium 96.7 mmol/L (Not Estab.) Urine Chloride <60 mmol/L (Not Estab.) Test 01/10/19 17:55 01/11/19 05:50 Sodium Level 159 mmol/L (136-145) 151 mmol/L (136-145) Potassium Level 4.1 mmol/L (3.5-5.1) 4.1 mmol/L (3.5-5.1) Chloride Level 124 mmol/L (98-107) 121 mmol/L (98-107) Carbon Dioxide Level 24 mmol/L (21-32) 25 mmol/L (21-32) Anion Gap 11 (6-14) 5 (6-14) Blood Urea Nitrogen 16 mg/dL (8-26) 15 mg/dL (8-26) Creatinine 0.9 mg/dL (0.7-1.3) 0.9 mg/dL (0.7-1.3) Estimated GFR (Cockcroft-Gault) 91.7 91.7 Glucose Level 98 mg/dL (70-99) 145 mg/dL (70-99) Calcium Level 7.4 mg/dL (8.5-10.1) 7.5 mg/dL (8.5-10.1) Phosphorus Level 3.1 mg/dL (2.6-4.7) 2.8 mg/dL (2.6-4.7) White Blood Count 12.1 x10^3/uL (4.0-11.0) Red Blood Count 2.20 x10^6/uL (4.30-5.70) Hemoglobin 7.9 g/dL (13.0-17.5) Hematocrit 23.3 % (39.0-53.0) Mean Corpuscular Volume 106 fL (79-100) Mean Corpuscular Hemoglobin 36 pg (25-35) Mean Corpuscular Hemoglobin Concent 34 g/dL (31-37) Red Cell Distribution Width 25.0 % (11.5-14.5) Platelet Count 68 x10^3/uL (140-400) Neutrophils (%) (Auto) 65 % (31-73) Lymphocytes (%) (Auto) 21 % (24-48) Monocytes (%) (Auto) 8 % (0-9) Eosinophils (%) (Auto) 5 % (0-3) Basophils (%) (Auto) 1 % (0-3) Neutrophils # (Auto) 7.9 x10^3/uL (1.8-7.7) Lymphocytes # (Auto) 2.5 x10^3/uL (1.0-4.8) Monocytes # (Auto) 1.0 x10^3/uL (0.0-1.1) Eosinophils # (Auto) 0.6 x10^3/uL (0.0-0.7) Basophils # (Auto) 0.1 x10^3/uL (0.0-0.2) Prothrombin Time 23.0 SEC (11.7-14.0) Prothromb Time International Ratio 2.1 (0.8-1.1) BUN/Creatinine Ratio 17 (6-20) Magnesium Level 1.9 mg/dL (1.8-2.4) Total Bilirubin 17.2 mg/dL (0.2-1.0) Aspartate Amino Transf (AST/SGOT) 122 U/L (15-37) Alanine Aminotransferase (ALT/SGPT) 133 U/L (16-63) Alkaline Phosphatase 88 U/L (46-116) Total Protein 5.1 g/dL (6.4-8.2) Albumin 1.7 g/dL (3.4-5.0) Albumin/Globulin Ratio 0.5 (1.0-1.7) Laboratory Tests Test 01/10/19 17:55 01/11/19 05:50 Sodium Level 159 mmol/L (136-145) 151 mmol/L (136-145) Potassium Level 4.1 mmol/L (3.5-5.1) 4.1 mmol/L (3.5-5.1) Chloride Level 124 mmol/L (98-107) 121 mmol/L (98-107) Carbon Dioxide Level 24 mmol/L (21-32) 25 mmol/L (21-32) Anion Gap 11 (6-14) 5 (6-14) Blood Urea Nitrogen 16 mg/dL (8-26) 15 mg/dL (8-26) Creatinine 0.9 mg/dL (0.7-1.3) 0.9 mg/dL (0.7-1.3) Estimated GFR (Cockcroft-Gault) 91.7 91.7 Glucose Level 98 mg/dL (70-99) 145 mg/dL (70-99) Calcium Level 7.4 mg/dL (8.5-10.1) 7.5 mg/dL (8.5-10.1) Phosphorus Level 3.1 mg/dL (2.6-4.7) 2.8 mg/dL (2.6-4.7) White Blood Count 12.1 x10^3/uL (4.0-11.0) Red Blood Count 2.20 x10^6/uL (4.30-5.70) Hemoglobin 7.9 g/dL (13.0-17.5) Hematocrit 23.3 % (39.0-53.0) Mean Corpuscular Volume 106 fL (79-100) Mean Corpuscular Hemoglobin 36 pg (25-35) Mean Corpuscular Hemoglobin Concent 34 g/dL (31-37) Red Cell Distribution Width 25.0 % (11.5-14.5) Platelet Count 68 x10^3/uL (140-400) Neutrophils (%) (Auto) 65 % (31-73) Lymphocytes (%) (Auto) 21 % (24-48) Monocytes (%) (Auto) 8 % (0-9) Eosinophils (%) (Auto) 5 % (0-3) Basophils (%) (Auto) 1 % (0-3) Neutrophils # (Auto) 7.9 x10^3/uL (1.8-7.7) Lymphocytes # (Auto) 2.5 x10^3/uL (1.0-4.8) Monocytes # (Auto) 1.0 x10^3/uL (0.0-1.1) Eosinophils # (Auto) 0.6 x10^3/uL (0.0-0.7) Basophils # (Auto) 0.1 x10^3/uL (0.0-0.2) Prothrombin Time 23.0 SEC (11.7-14.0) Prothromb Time International Ratio 2.1 (0.8-1.1) BUN/Creatinine Ratio 17 (6-20) Magnesium Level 1.9 mg/dL (1.8-2.4) Total Bilirubin 17.2 mg/dL (0.2-1.0) Aspartate Amino Transf (AST/SGOT) 122 U/L (15-37) Alanine Aminotransferase (ALT/SGPT) 133 U/L (16-63) Alkaline Phosphatase 88 U/L (46-116) Total Protein 5.1 g/dL (6.4-8.2) Albumin 1.7 g/dL (3.4-5.0) Albumin/Globulin Ratio 0.5 (1.0-1.7) Medications Active Scripts Medications Dose Route/Sig Max Daily Dose Days Date Category Omeprazole 40 Mg Capsule.dr 1 Cap PO DAILY 01/04/19 Reported Impression . 1. Acute hypoxic respiratory failure secondary to multifactorial etiologies including acute hepatic encephalopathy, sepsis, suspected acute lung injury, risk for aspiration, and acute on chronic hepatic failure. 2. Acute alcoholic hepatic encephalopathy. 3. Acute on chronic liver failure with progressively increasing bilirubin and transaminases. GI is following. Now trending down 4. Marked lactic acidosis. Likely sepsis, but could be related to type B lactic acidosis from liver failure. 5. Coagulopathy secondary to liver failure. 6. Marked metabolic acidosis on ABGs related to lactic acidosis and hepatic failure. improved 7. hypernatremia, per renal Plan . 1. Discussed with RN. We will continue with present canula and prn BIPAP 2. ABG adequate 3. Correction of metabolic acidosis. no further bicarbonate. 4. Continue broad-spectrum antibiotics. 5. Follow GI recommendation. 6. octreotide drip.per GI 7. DuoNeb. 8. Alcohol withdrawal precautions. 9. There is also concern for hepatic or colonic malignancy.GI following 10.Monitor Na, per renal 11.speech eval and if can eat PO, wean TPN D/W DIVYA AVENDAÑO MD Jan 11, 2019 11:19
[2019-01-11] MEDS: TPN PER PHARMACY MC PRN (12:37)
--- NOTE | 2019-01-11 12:41 | NUR ---
Pharmacy TPN Dosing Note S: NILAM PIRES is a 43 year old M Currently receiving Central Continuous TPN started 01/09/19 B:Pertinent PMH: npo Height: 5 feet, 7 inches Weight: 78.5 kg Current diet: Full liquid LABS: Sodium: 151 Potassium: 4.1 Chloride: 121 Calcium: 7.5 Corrected Calcium: 9.34 Magnesium: 1.9 CO2: 25 SCr: 0.9 Glucose: 145 Albumin: 1.7 AST: 122 ALT: 133 TPN FORMULA: TPN TYPE: Central Continuous AMINO ACIDS: 80 gm DEXTROSE: 250 gm LIPIDS: 20 gm POTASSIUM CHLORIDE: 40 mEq POTASSIUM ACETATE: 40 mEq POTASSIUM PHOSPHATE: 15 mmol MAGNESIUM: 10 mEq CALCIUM: 10 mEq MULTIPLE VITAMIN: 10 ml TRACE ELEMENTS: 1ml TPN PLAN: No changes to TPN formula today. Patient with orders to start full liquid diet. R: Continue TPN Will monitor electrolytes, glucose, and tolerance to TPN. Quiana De Los Santos RPH, 01/11/19 [id number]
--- NOTE | 2019-01-11 13:28 | PDOC ---
Subjective: Subjective: "Hey long time no see!" Nurse present helping w/ lunch. Pt says he's done eating for now. Denies pain. Knows he's at [place], doesn't know the year, thinks it's probably April. Used to work at a [employer] and "got a shot" there. "When are you gonna take me with you?" Objective: Vital Signs: Vital Signs Date Time Temp Pulse Resp B/P (MAP) Pulse Ox O2 Delivery O2 Flow Rate FiO2 01/11/19 11:14 97 Room Air 01/11/19 11:00 97 29 108/68 (81) 01/11/19 08:00 98.7 98.7 Labs: Laboratory Tests Test 01/10/19 17:55 01/11/19 05:50 Sodium Level 159 mmol/L 151 mmol/L Potassium Level 4.1 mmol/L 4.1 mmol/L Chloride Level 124 mmol/L 121 mmol/L Carbon Dioxide Level 24 mmol/L 25 mmol/L Anion Gap 11 5 Blood Urea Nitrogen 16 mg/dL 15 mg/dL Creatinine 0.9 mg/dL 0.9 mg/dL Estimated GFR (Cockcroft-Gault) 91.7 91.7 Glucose Level 98 mg/dL 145 mg/dL Calcium Level 7.4 mg/dL 7.5 mg/dL Phosphorus Level 3.1 mg/dL 2.8 mg/dL White Blood Count 12.1 x10^3/uL Red Blood Count 2.20 x10^6/uL Hemoglobin 7.9 g/dL Hematocrit 23.3 % Mean Corpuscular Volume 106 fL Mean Corpuscular Hemoglobin 36 pg Mean Corpuscular Hemoglobin Concent 34 g/dL Red Cell Distribution Width 25.0 % Platelet Count 68 x10^3/uL Neutrophils (%) (Auto) 65 % Lymphocytes (%) (Auto) 21 % Monocytes (%) (Auto) 8 % Eosinophils (%) (Auto) 5 % Basophils (%) (Auto) 1 % Neutrophils # (Auto) 7.9 x10^3/uL Lymphocytes # (Auto) 2.5 x10^3/uL Monocytes # (Auto) 1.0 x10^3/uL Eosinophils # (Auto) 0.6 x10^3/uL Basophils # (Auto) 0.1 x10^3/uL Prothrombin Time 23.0 SEC Prothromb Time International Ratio 2.1 BUN/Creatinine Ratio 17 Magnesium Level 1.9 mg/dL Total Bilirubin 17.2 mg/dL Aspartate Amino Transf (AST/SGOT) 122 U/L Alanine Aminotransferase (ALT/SGPT) 133 U/L Alkaline Phosphatase 88 U/L Total Protein 5.1 g/dL Albumin 1.7 g/dL Albumin/Globulin Ratio 0.5 Imaging: [facility] Bedside Swallow Eval Pt alert but confused at time of eval. NG tube remained in place at time of eval. IMPRESSIONS: Moderate oropharyngeal dysphagia w/oropharyngeal delay and inconsistent s/s aspiration upon swallow of thin liquids via cup; more consistent s/s observed w/ straw trials. Delayed but safe swallow of puree, solids and honey thick liquids. Would initiate modified diet and f/u to advance liquids and solids. Suspect pt's confusion may also be a contributing factor to timeliness of swallow current dysphagia. RECOMMENDATIONS: Dysphagia II w/honey thick liquids; sit up at 90*, may use straw w/honey thick in this pt. MARRY Becker RN who indicated pt would need to start clear liquids and adv. Swallow precautions written to reflect same. RN to enter diet orders. RU[facility]OR will f/u to ensure safety of po intake and adv diet as indicated. PE: GEN: NAD HEART: some tachycardia noted ABD: non-tender SKIN: +jaundice NEURO/PSYCH: confused A/P: Alcoholic hepatitis - bili and plt worse, INR better Encephalopathy - more awake and talkative, still confused Hypernatremia - better -- Okay for dysphagia II diet w/ honey thick liquids. Continue PPI. EMILEE TRAMMELL Jan 11, 2019 13:28
--- NOTE | 2019-01-11 14:07 | PDOC ---
PROGRESS NOTES Assessment Assessment Metabolic encephalopathy. Toxic encephalopathy. Respiratory failure. Alcohol intoxication. Lactic acidosis. Hepatic Injury. Elevated ammonia level. Thrombocytopenia. Coagulopathy, elevated PT/INR related to hepatic disease likely. Cirrhosis. Colitis. HTN. Substances abuse, alcohol. RECOMMENDATIONS/PLAN: EEG on order. Vit B1. Treat medical and hematologic diseases. ID on team. HCT w/o contrast on 01/07/19: negative without ICH. HISTORY OF THE PRESENT ILLNESS: This is a 43-year-old male with history of alcohol abuse went unresponsive status. According to his family, he has a history of drinking alcohol heavily in the last 22 years, averaging 30-60 beers a day. Over the last year, he has been depressed, shaky and not well-coordinated with falls. He could not work regularly. He tried to quit drinking a few times but but failed maintain abstinence. He had nosebleeds, blood in urine and skin and soft tissue bruises. He has been unresponsiveness since here. His daughter says he has lost about 50 pounds in a span of 3 month period last year. 01/11/19: Gained consciousness, but still encephalopathic. PAST MEDICAL HISTORY: Depression, hypertension, GERD, panic attacks. PAST SURGICAL HISTORY: No significant past surgical history. SOCIAL HISTORY: The patient is and lives at home. Used to work at a [employer] shop and [employer]. He migrated to the [place] from [place] about 19 years ago. He has 2 daughters. Heavy alcohol drinking for > 15 years as he stated on 01/11/19. FAMILY HISTORY: Noncontributory. ALLERGIES: No known drug allergies. REVIEW OF SYSTEMS: Refer to PMH and PSH. Otherwise, all other review of systems limited as the patient is unresponsiveness. PHYSICAL EXAMINATION: General appearance is in subacute distress. HEENT: Normocephalic and nontraumatic. Eyes, nose, ears, and throat are unremarkable. Neck is supple. No lymphadenopathy. No crepitus. Cardiovascular: S1, S2, regular rate and rhythm. Pulmonary: On 02.. Abdomen: Bowel sounds are positive. Extremities: Bruises in extremities. No restriction of range of motion NEUROLOGICAL EXAMINATION: Awake. Able to understand a few questions. Not oriented to time, place and person. PERRL. EOMI not elicited. CN: no focal findings. Muscle tone: Decreased. Muscle strength: minimal movements to stimuli. DTR: 1 Plantar reflex: No response bilaterally Gait: not able to walk. Sensory exam: no response.. Not able to access cerebellar signs. F-T-N test not performed due to not follow commands. Objective Objective Vital Signs Date Time Temp Pulse Resp B/P (MAP) Pulse Ox O2 Delivery O2 Flow Rate FiO2 01/11/19 13:00 98 24 106/67 (80) 97 Room Air 01/11/19 12:00 100.1 100.1 Intake and Output 01/11/19 07:00 Intake Total 8394.55 ml Output Total 1400 ml Balance 6994.55 ml Intake Oral 350 ml IV Total 8044.55 ml Output Urine Total 900 ml Stool Total 300 ml Gastric Drainage Total 200 ml Vitals Signs Vitals VS - Last 72 Hours, by Label Date Time Temp Pulse Resp B/P (MAP) Pulse Ox O2 Delivery O2 Flow Rate FiO2 01/11/19 13:00 98 24 106/67 (80) 97 Room Air 01/11/19 12:00 100.1 96 26 115/62 (79) 96 Room Air 100.1 01/11/19 12:00 Room Air 01/11/19 11:14 97 Room Air 01/11/19 11:00 97 29 108/68 (81) 97 Room Air 01/11/19 10:00 97 29 115/71 (86) 97 Room Air 01/11/19 09:00 104 30 122/69 (86) 96 Room Air 01/11/19 08:00 98.7 96 22 120/86 (97) 97 Room Air 98.7 01/11/19 08:00 Room Air 01/11/19 07:58 98 Room Air 01/11/19 07:00 107 26 123/73 (90) 97 Room Air 01/11/19 06:00 96 30 114/75 (88) 96 Room Air 01/11/19 05:00 105 32 117/72 (87) 96 Room Air 01/11/19 04:00 98.6 97 22 110/82 (91) 96 Room Air 98.6 01/11/19 04:00 Room Air 01/11/19 03:00 94 32 109/73 (85) 97 Room Air 01/11/19 02:00 102 32 119/74 (89) 96 Room Air 01/11/19 01:00 96 28 106/66 (79) 97 Room Air 01/11/19 00:00 98.6 102 28 118/80 (93) 97 Room Air 98.6 01/10/19 23:59 Room Air 01/10/19 23:00 97 28 113/75 (88) 98 Room Air 01/10/19 22:00 96 25 117/76 (90) 96 Room Air 01/10/19 21:00 97 30 121/80 (94) 97 Room Air 01/10/19 20:07 97 Room Air 01/10/19 20:00 Room Air 01/10/19 20:00 100 24 117/70 (86) 96 Room Air 01/10/19 19:00 98.6 102 28 106/68 (81) 98 Room Air 98.6 01/10/19 18:00 102 24 99/63 (75) 96 Room Air 01/10/19 17:00 105 26 123/87 (99) 97 Room Air 01/10/19 16:20 96 Room Air 01/10/19 16:00 Room Air 01/10/19 16:00 98.7 104 26 118/75 (89) 96 Room Air 98.7 01/10/19 15:00 94 28 109/71 (84) 96 Room Air 01/10/19 14:00 94 25 114/71 (85) 97 Room Air 01/10/19 13:00 96 21 118/74 (89) 95 Room Air 01/10/19 12:00 97.9 100 25 134/82 (99) 96 Room Air 97.9 01/10/19 12:00 Room Air 01/10/19 11:39 97 Room Air 01/10/19 11:00 102 22 113/72 (86) 98 Room Air 01/10/19 10:00 98 25 115/78 (90) 97 Room Air 01/10/19 09:00 92 22 125/85 (98) 97 Room Air 01/10/19 08:47 97 Room Air 01/10/19 08:00 Room Air 01/10/19 08:00 98.8 104 20 125/82 (96) 97 Room Air 98.8 01/10/19 07:00 96 18 132/90 (104) 97 Room Air Laboratory Laboratory Laboratory Tests Test 01/10/19 17:55 01/11/19 05:50 Sodium Level 159 mmol/L (136-145) 151 mmol/L (136-145) Potassium Level 4.1 mmol/L (3.5-5.1) 4.1 mmol/L (3.5-5.1) Chloride Level 124 mmol/L (98-107) 121 mmol/L (98-107) Carbon Dioxide Level 24 mmol/L (21-32) 25 mmol/L (21-32) Anion Gap 11 (6-14) 5 (6-14) Blood Urea Nitrogen 16 mg/dL (8-26) 15 mg/dL (8-26) Creatinine 0.9 mg/dL (0.7-1.3) 0.9 mg/dL (0.7-1.3) Estimated GFR (Cockcroft-Gault) 91.7 91.7 Glucose Level 98 mg/dL (70-99) 145 mg/dL (70-99) Calcium Level 7.4 mg/dL (8.5-10.1) 7.5 mg/dL (8.5-10.1) Phosphorus Level 3.1 mg/dL (2.6-4.7) 2.8 mg/dL (2.6-4.7) White Blood Count 12.1 x10^3/uL (4.0-11.0) Red Blood Count 2.20 x10^6/uL (4.30-5.70) Hemoglobin 7.9 g/dL (13.0-17.5) Hematocrit 23.3 % (39.0-53.0) Mean Corpuscular Volume 106 fL (79-100) Mean Corpuscular Hemoglobin 36 pg (25-35) Mean Corpuscular Hemoglobin Concent 34 g/dL (31-37) Red Cell Distribution Width 25.0 % (11.5-14.5) Platelet Count 68 x10^3/uL (140-400) Neutrophils (%) (Auto) 65 % (31-73) Lymphocytes (%) (Auto) 21 % (24-48) Monocytes (%) (Auto) 8 % (0-9) Eosinophils (%) (Auto) 5 % (0-3) Basophils (%) (Auto) 1 % (0-3) Neutrophils # (Auto) 7.9 x10^3/uL (1.8-7.7) Lymphocytes # (Auto) 2.5 x10^3/uL (1.0-4.8) Monocytes # (Auto) 1.0 x10^3/uL (0.0-1.1) Eosinophils # (Auto) 0.6 x10^3/uL (0.0-0.7) Basophils # (Auto) 0.1 x10^3/uL (0.0-0.2) Prothrombin Time 23.0 SEC (11.7-14.0) Prothromb Time International Ratio 2.1 (0.8-1.1) BUN/Creatinine Ratio 17 (6-20) Magnesium Level 1.9 mg/dL (1.8-2.4) Total Bilirubin 17.2 mg/dL (0.2-1.0) Aspartate Amino Transf (AST/SGOT) 122 U/L (15-37) Alanine Aminotransferase (ALT/SGPT) 133 U/L (16-63) Alkaline Phosphatase 88 U/L (46-116) Total Protein 5.1 g/dL (6.4-8.2) Albumin 1.7 g/dL (3.4-5.0) Albumin/Globulin Ratio 0.5 (1.0-1.7) Microbiology 01/06/19 Blood Culture - Preliminary, Resulted NO GROWTH AFTER 4 DAYS 01/04/19 Urine Culture - Final, Complete 01/04/19 Urine Culture Result 1 (DONALD) - Final, Complete Medication Medications Current Medications Lorazepam (Ativan Inj) 1 mg PRN Q6HRS PRN IV ANXIETY / AGITATION Last administered on 01/10/19at 23:23; Start 01/10/19 at 23:15 Pantoprazole Sodium (PROTONIX VIAL for IV PUSH) 40 mg BIDAC IVP Last administered on 01/11/19at 09:02; Start 01/10/19 at 16:30 Potassium Chloride 40 meq/ Potassium Acetate 40 meq/Potassium Phosphate 15 mmol/ Magnesium Sulfate 10 meq/Calcium Gluconate 10 meq/ Multivitamins 10 ml/Chromium/ Copper/Manganese/ Seleni/Zn 1 ml/ Total Parenteral Nutrition/Amino Acids/Dextrose/ Fat Emulsion Intravenous 1,512 ml @ 63 mls/hr TPN CONT IV Last administered on 01/10/19at 22:08; Start 01/10/19 at 22:00; Stop 01/11/19 at 21:59 Potassium Chloride 40 meq/ Potassium Acetate 40 meq/Potassium Phosphate 15 mmol/ Magnesium Sulfate 10 meq/Calcium Gluconate 10 meq/ Multivitamins 10 ml/Chromium/ Copper/Manganese/ Seleni/Zn 1 ml/ Total Parenteral Nutrition/Amino Acids/Dextrose/ Fat Emulsion Intravenous 1,512 ml @ 63 mls/hr TPN CONT IV ; Start 01/11/19 at 22:00; Stop 01/12/19 at 21:59 Sodium Chloride 250 ml @ 250 mls/hr 1X ONCE IV Last administered on 01/10/19at 19:30; Start 01/10/19 at 19:30; Stop 01/10/19 at 20:29; Status DC Comment Review of Relevant I have reviewed the following items pierre (where applicable) has been applied. MAGY BLUE MD Jan 11, 2019 14:07
--- NOTE | 2019-01-11 15:09 | PDOC ---
PROGRESS NOTES Subjective Subjective HPI - f/u of Thrombocytopenia ROS - no bleeding Objective Objective Vital Signs Date Time Temp Pulse Resp B/P (MAP) Pulse Ox O2 Delivery O2 Flow Rate FiO2 01/11/19 15:00 93 21 112/70 (84) 98 Room Air 01/11/19 12:00 100.1 100.1 01/10/19 04:00 15.0 Intake and Output 01/11/19 06:59 Intake Total 8444.55 ml Output Total 1405 ml Balance 7039.55 ml Intake Oral 350 ml IV Total 8094.55 ml Output Urine Total 905 ml Stool Total 300 ml Gastric Drainage Total 200 ml Physical Exam Heart: Normal S1, Normal S2 General: Alert, No acute distress Lungs: Clear to auscultation Assessment Assessment Problems Medical Problems: (1) Alcoholic liver disease Status: Acute (2) Cholelithiasis Status: Acute (3) Colitis Status: Acute (4) Jaundice Status: Acute (5) Pancreatitis Status: Acute (6) Thrombocytopenia Status: Acute Imp/Plan: 1. Thrombocytopenia. Secondary to liver dysfunction. Improved a little from admission. Plt 68. 2. Coagulopathy from liver failure. Given vit k 3. ?hepatic mass. If he improves would eventually get an MRI to further evaluate, but if not would not pursue 4. Liver failure. Most likely secondary to etoh 5. Colitis. Management per primary team 6. Anemia, Hb 7.9. monitor cbc. Comment Review of Relevant I have reviewed the following items pierre (where applicable) has been applied. Labs Laboratory Tests Test 01/09/19 16:15 01/09/19 16:52 01/10/19 05:50 01/10/19 11:00 Potassium Level 2.7 mmol/L (3.5-5.1) 2.8 mmol/L (3.5-5.1) Phosphorus Level 2.0 mg/dL (2.6-4.7) 1.9 mg/dL (2.6-4.7) Magnesium Level 2.3 mg/dL (1.8-2.4) 2.2 mg/dL (1.8-2.4) Triglycerides Level 69 mg/dL (0-150) Glucose (Fingerstick) 149 mg/dL (70-99) White Blood Count 10.3 x10^3/uL (4.0-11.0) Red Blood Count 2.16 x10^6/uL (4.30-5.70) Hemoglobin 7.7 g/dL (13.0-17.5) Hematocrit 22.9 % (39.0-53.0) Mean Corpuscular Volume 106 fL (79-100) Mean Corpuscular Hemoglobin 36 pg (25-35) Mean Corpuscular Hemoglobin Concent 34 g/dL (31-37) Red Cell Distribution Width 24.9 % (11.5-14.5) Platelet Count 80 x10^3/uL (140-400) Neutrophils (%) (Auto) 65 % (31-73) Lymphocytes (%) (Auto) 23 % (24-48) Monocytes (%) (Auto) 9 % (0-9) Eosinophils (%) (Auto) 3 % (0-3) Basophils (%) (Auto) 0 % (0-3) Neutrophils # (Auto) 6.7 x10^3/uL (1.8-7.7) Lymphocytes # (Auto) 2.4 x10^3/uL (1.0-4.8) Monocytes # (Auto) 0.9 x10^3/uL (0.0-1.1) Eosinophils # (Auto) 0.3 x10^3/uL (0.0-0.7) Basophils # (Auto) 0.0 x10^3/uL (0.0-0.2) Prothrombin Time 25.4 SEC (11.7-14.0) Prothromb Time International Ratio 2.3 (0.8-1.1) Sodium Level 162 mmol/L (136-145) Chloride Level 127 mmol/L (98-107) Carbon Dioxide Level 27 mmol/L (21-32) Anion Gap 8 (6-14) Blood Urea Nitrogen 17 mg/dL (8-26) Creatinine 0.9 mg/dL (0.7-1.3) Estimated GFR (Cockcroft-Gault) 91.7 BUN/Creatinine Ratio 19 (6-20) Glucose Level 130 mg/dL (70-99) Calcium Level 7.6 mg/dL (8.5-10.1) Total Bilirubin 14.4 mg/dL (0.2-1.0) Aspartate Amino Transf (AST/SGOT) 169 U/L (15-37) Alanine Aminotransferase (ALT/SGPT) 155 U/L (16-63) Alkaline Phosphatase 80 U/L (46-116) Total Protein 4.9 g/dL (6.4-8.2) Albumin 1.7 g/dL (3.4-5.0) Albumin/Globulin Ratio 0.5 (1.0-1.7) Urine Osmolality 819 mOsmol/kg (.) Urine Sodium <60 mmol/L (Not Estab.) Urine Potassium 96.7 mmol/L (Not Estab.) Urine Chloride <60 mmol/L (Not Estab.) Test 01/10/19 17:55 01/11/19 05:50 Sodium Level 159 mmol/L (136-145) 151 mmol/L (136-145) Potassium Level 4.1 mmol/L (3.5-5.1) 4.1 mmol/L (3.5-5.1) Chloride Level 124 mmol/L (98-107) 121 mmol/L (98-107) Carbon Dioxide Level 24 mmol/L (21-32) 25 mmol/L (21-32) Anion Gap 11 (6-14) 5 (6-14) Blood Urea Nitrogen 16 mg/dL (8-26) 15 mg/dL (8-26) Creatinine 0.9 mg/dL (0.7-1.3) 0.9 mg/dL (0.7-1.3) Estimated GFR (Cockcroft-Gault) 91.7 91.7 Glucose Level 98 mg/dL (70-99) 145 mg/dL (70-99) Calcium Level 7.4 mg/dL (8.5-10.1) 7.5 mg/dL (8.5-10.1) Phosphorus Level 3.1 mg/dL (2.6-4.7) 2.8 mg/dL (2.6-4.7) White Blood Count 12.1 x10^3/uL (4.0-11.0) Red Blood Count 2.20 x10^6/uL (4.30-5.70) Hemoglobin 7.9 g/dL (13.0-17.5) Hematocrit 23.3 % (39.0-53.0) Mean Corpuscular Volume 106 fL (79-100) Mean Corpuscular Hemoglobin 36 pg (25-35) Mean Corpuscular Hemoglobin Concent 34 g/dL (31-37) Red Cell Distribution Width 25.0 % (11.5-14.5) Platelet Count 68 x10^3/uL (140-400) Neutrophils (%) (Auto) 65 % (31-73) Lymphocytes (%) (Auto) 21 % (24-48) Monocytes (%) (Auto) 8 % (0-9) Eosinophils (%) (Auto) 5 % (0-3) Basophils (%) (Auto) 1 % (0-3) Neutrophils # (Auto) 7.9 x10^3/uL (1.8-7.7) Lymphocytes # (Auto) 2.5 x10^3/uL (1.0-4.8) Monocytes # (Auto) 1.0 x10^3/uL (0.0-1.1) Eosinophils # (Auto) 0.6 x10^3/uL (0.0-0.7) Basophils # (Auto) 0.1 x10^3/uL (0.0-0.2) Prothrombin Time 23.0 SEC (11.7-14.0) Prothromb Time International Ratio 2.1 (0.8-1.1) BUN/Creatinine Ratio 17 (6-20) Magnesium Level 1.9 mg/dL (1.8-2.4) Total Bilirubin 17.2 mg/dL (0.2-1.0) Aspartate Amino Transf (AST/SGOT) 122 U/L (15-37) Alanine Aminotransferase (ALT/SGPT) 133 U/L (16-63) Alkaline Phosphatase 88 U/L (46-116) Total Protein 5.1 g/dL (6.4-8.2) Albumin 1.7 g/dL (3.4-5.0) Albumin/Globulin Ratio 0.5 (1.0-1.7) Laboratory Tests Test 01/10/19 17:55 01/11/19 05:50 Sodium Level 159 mmol/L (136-145) 151 mmol/L (136-145) Potassium Level 4.1 mmol/L (3.5-5.1) 4.1 mmol/L (3.5-5.1) Chloride Level 124 mmol/L (98-107) 121 mmol/L (98-107) Carbon Dioxide Level 24 mmol/L (21-32) 25 mmol/L (21-32) Anion Gap 11 (6-14) 5 (6-14) Blood Urea Nitrogen 16 mg/dL (8-26) 15 mg/dL (8-26) Creatinine 0.9 mg/dL (0.7-1.3) 0.9 mg/dL (0.7-1.3) Estimated GFR (Cockcroft-Gault) 91.7 91.7 Glucose Level 98 mg/dL (70-99) 145 mg/dL (70-99) Calcium Level 7.4 mg/dL (8.5-10.1) 7.5 mg/dL (8.5-10.1) Phosphorus Level 3.1 mg/dL (2.6-4.7) 2.8 mg/dL (2.6-4.7) White Blood Count 12.1 x10^3/uL (4.0-11.0) Red Blood Count 2.20 x10^6/uL (4.30-5.70) Hemoglobin 7.9 g/dL (13.0-17.5) Hematocrit 23.3 % (39.0-53.0) Mean Corpuscular Volume 106 fL (79-100) Mean Corpuscular Hemoglobin 36 pg (25-35) Mean Corpuscular Hemoglobin Concent 34 g/dL (31-37) Red Cell Distribution Width 25.0 % (11.5-14.5) Platelet Count 68 x10^3/uL (140-400) Neutrophils (%) (Auto) 65 % (31-73) Lymphocytes (%) (Auto) 21 % (24-48) Monocytes (%) (Auto) 8 % (0-9) Eosinophils (%) (Auto) 5 % (0-3) Basophils (%) (Auto) 1 % (0-3) Neutrophils # (Auto) 7.9 x10^3/uL (1.8-7.7) Lymphocytes # (Auto) 2.5 x10^3/uL (1.0-4.8) Monocytes # (Auto) 1.0 x10^3/uL (0.0-1.1) Eosinophils # (Auto) 0.6 x10^3/uL (0.0-0.7) Basophils # (Auto) 0.1 x10^3/uL (0.0-0.2) Prothrombin Time 23.0 SEC (11.7-14.0) Prothromb Time International Ratio 2.1 (0.8-1.1) BUN/Creatinine Ratio 17 (6-20) Magnesium Level 1.9 mg/dL (1.8-2.4) Total Bilirubin 17.2 mg/dL (0.2-1.0) Aspartate Amino Transf (AST/SGOT) 122 U/L (15-37) Alanine Aminotransferase (ALT/SGPT) 133 U/L (16-63) Alkaline Phosphatase 88 U/L (46-116) Total Protein 5.1 g/dL (6.4-8.2) Albumin 1.7 g/dL (3.4-5.0) Albumin/Globulin Ratio 0.5 (1.0-1.7) Microbiology 01/06/19 Blood Culture - Preliminary, Resulted NO GROWTH AFTER 4 DAYS 01/04/19 Urine Culture - Final, Complete 01/04/19 Urine Culture Result 1 (DONALD) - Final, Complete Medications Current Medications Iohexol (Omnipaque 240 Mg/ml) 30 ml 1X ONCE PO Last administered on 01/04/19at 15:15; Start 01/04/19 at 15:15; Stop 01/04/19 at 15:17; Status DC Iohexol (Omnipaque 300 Mg/ml) 75 ml 1X ONCE IV Last administered on 01/04/19at 16:20; Start 01/04/19 at 15:15; Stop 01/04/19 at 15:17; Status DC Info (CONTRAST GIVEN -- Rx MONITORING) 1 each PRN DAILY PRN MC SEE COMMENTS; Start 01/04/19 at 15:30; Stop 01/06/19 at 15:29; Status DC Multivitamins 10 ml/Thiamine HCl 100 mg/Folic Acid 1 mg/Sodium Chloride 1,011.2 ml @ 100 mls/ hr DAILY IV Last administered on 01/08/19at 08:12; Start 01/04/19 at 18:00; Stop 01/08/19 at 19:07; Status DC Chlordiazepoxide (Librium) 50 mg PRN Q1HR PRN PO For CIWA 8-14 Last adm inistered on 01/04/19at 18:17; Start 01/04/19 at 17:45 Chlordiazepoxide (Librium) 100 mg PRN Q1HR PRN PO For CIWA 15 or greater Last administered on 01/05/19at 06:27; Start 01/04/19 at 17:45 Lorazepam (Ativan) 4 mg PRN Q1HR PRN PO For CIWA 8-14 Last administered on 01/04/19at 18:17; Start 01/04/19 at 17:45; Stop 01/10/19 at 07:34; Status DC Lorazepam (Ativan) 8 mg PRN Q1HR PRN PO For CIWA 15 or greater; Start 01/04/19 at 17:45; Stop 01/10/19 at 07:34; Status DC Haloperidol Lactate (Haldol Inj) 5 mg PRN Q4HRS PRN IVP Hallucinatns,Confusn,Delirium; Start 01/04/19 at 17:45 Diphenhydramine HCl (Benadryl) 25 mg PRN Q15MIN PRN IVP EPS symptoms 2'Haldol admin; Start 01/04/19 at 17:45 Clonidine HCl (Catapres) 0.1 mg PRN Q1HR PRN PO SBP > 180 or DBP > 100, MRX3 Last administered on 01/08/19at 07:18; Start 01/04/19 at 17:45; Stop 01/08/19 at 08:58; Status DC Lorazepam (Ativan Inj) 2 mg PRN Q1HR PRN IV For CIWA 8-14 Last administered on 01/09/19at 12:59; Start 01/04/19 at 19:15 Lorazepam (Ativan Inj) 4 mg PRN Q1HR PRN IV For CIWA 15 or greater Last administered on 01/05/19at 06:28; Start 01/04/19 at 19:15 Lorazepam (Ativan Inj) 2 mg PRN Q15MIN PRN IV SEE COMMENTS; Start 01/04/19 at 19:15; Status UNV Lorazepam (Ativan Inj) 4 mg PRN Q15MIN PRN IV SEE COMMENTS; Start 01/04/19 at 19:15; Status UNV Ondansetron HCl (Zofran) 4 mg PRN Q6HRS PRN IV NAUSEA/VOMITING Last administered on 01/04/19at 19:34; Start 01/04/19 at 19:30 Pantoprazole Sodium (PROTONIX VIAL for IV PUSH) 40 mg DAILYAC IVP Last administered on 01/06/19at 10:36; Start 01/06/19 at 10:00; Stop 01/06/19 at 12:17; Status DC Phytonadione (Vitamin K Ampule) 10 mg 1X ONCE SQ Last administered on 01/06/19at 10:36; Start 01/06/19 at 10:15; Stop 01/06/19 at 10:16; Status DC Piperacillin Sod/ Tazobactam Sod (Zosyn Per Pharmacy) 1 each PRN DAILY PRN MC SEE COMMENTS; Start 01/06/19 at 10:30 Piperacillin Sod/ Tazobactam Sod 3.375 gm/Sodium Chloride 50 ml @ 100 mls/hr Q6HRS IV Last administered on 01/11/19at 11:14; Start 01/06/19 at 11:00 Lactulose (Lactulose) 30 gm Q6HRS NG Last administered on 01/09/19at 05:53; Start 01/06/19 at 12:00; Stop 01/09/19 at 10:51; Status DC Metronidazole 100 ml @ 100 mls/hr Q8HRS IV Last administered on 01/09/19at 05:53; Start 01/06/19 at 14:00; Stop 01/09/19 at 07:19; Status DC Pantoprazole Sodium 80 mg/ Sodium Chloride 100 ml @ 10 mls/hr Q10H IV Last administered on 01/10/19at 02:31; Start 01/06/19 at 12:30; Stop 01/10/19 at 12:11; Status DC Octreotide Acetate 500 mcg/ Sodium Chloride 101 ml @ 0 mls/hr CONT PRN IV SEE I/O RECORD Last administered on 01/08/19at 06:08; Start 01/06/19 at 12:15; Stop 01/08/19 at 10:48; Status DC Norepinephrine Bitartrate 250 ml @ 14.235 mls/ hr CONT PRN IV SEE I/O RECORD; Start 01/06/19 at 20:15 Albumin Human 100 ml @ 100 mls/hr 1X ONCE IV Last administered on 01/06/19at 21:30; Start 01/06/19 at 20:15; Stop 01/06/19 at 21:14; Status DC Phytonadione (Vitamin K Ampule) 10 mg 1X ONCE SQ Last administered on 01/07/19at 13:04; Start 01/07/19 at 11:45; Stop 01/07/19 at 11:46; Status DC Albuterol/ Ipratropium (Duoneb) 3 ml RTQID NEB Last administered on 01/11/19at 11:14; Start 01/07/19 at 16:00 Sodium Chloride 1,000 ml @ 75 mls/hr [id number] IV Last administered on 01/08/19at 23:47; Start 01/08/19 at 06:00; Stop 01/09/19 at 10:19; Status DC Labetalol HCl (Normodyne Iv Push) 10 mg PRN Q4HRS PRN IVP HYPERTENSION; Start 01/08/19 at 09:00 Potassium Bicarbonate (Potassium Effervescent Tablet) 40 meq 1X ONCE PEG Last administered on 01/08/19at 12:24; Start 01/08/19 at 11:30; Stop 01/08/19 at 11:33; Status DC Potassium Bicarbonate (Potassium Effervescent Tablet) 40 meq 1X ONCE PEG Last administered on 01/08/19at 16:06; Start 01/08/19 at 16:00; Stop 01/08/19 at 16:01; Status DC Potassium Bicarbonate (Potassium Effervescent Tablet) 80 meq 1X ONCE PEG Last administered on 01/09/19at 06:58; Start 01/09/19 at 06:15; Stop 01/09/19 at 06:21; Status DC Artificial Tears (Artificial Tears) 1 drop PRN Q15MIN PRN OU DRY EYE Last administered on 01/09/19at 10:11; Start 01/09/19 at 10:00 Dextrose/Sodium Chloride 1,000 ml @ 75 mls/hr [id number] IV Last administered on 01/09/19at 11:03; Start 01/09/19 at 10:30; Stop 01/09/19 at 12:20; Status DC Potassium Chloride/Water 50 ml @ 50 mls/hr Q1H IV ; Start 01/09/19 at 10:30; Stop 01/09/19 at 12:29; Status UNV Potassium Chloride/Water 100 ml @ 100 mls/hr Q1H IV ; Start 01/09/19 at 11:00; Stop 01/09/19 at 11:00; Status DC Lactulose (Lactulose) 30 gm BID NG Last administered on 01/09/19at 20:52; Start 01/09/19 at 21:00; Stop 01/10/19 at 13:57; Status DC Dextrose 1,000 ml @ 100 mls/hr Q10H IV Last administered on 01/11/19at 14:00; Start 01/09/19 at 12:30 Info (Tpn Per Pharmacy) 1 each PRN DAILY PRN MC SEE COMMENTS Last administered on 01/11/19at 12:37; Start 01/09/19 at 15:15 Potassium Chloride 50 meq/ Potassium Phosphate 13.6 mmol/Magnesium Sulfate 10 meq/ Calcium Gluconate 10 meq/ Multivitamins 10 ml/Chromium/ Copper/Manganese/ Seleni/Zn 1 ml/ Total Parenteral Nutrition/Amino Acids/Dextrose/ Fat Emulsion Intravenous 1,512 ml @ 63 mls/hr TPN CONT IV Last administered on 01/09/19at 21:41; Start 01/09/19 at 22:00; Stop 01/10/19 at 21:59; Status DC Potassium Chloride/Water 50 ml @ 50 mls/hr Q1H IV Last administered on 01/09/19at 20:51; Start 01/09/19 at 18:00; Stop 01/09/19 at 21:59; Status DC Potassium Phosphate 13.6 mmol/Dextrose 254.5333 ml @ 62.646 m... 1X ONCE IV Last administered on 01/09/19at 21:49; Start 01/09/19 at 22:00; Stop 01/10/19 at 08:03; Status DC Potassium Chloride/Water 50 ml @ 50 mls/hr Q1H IV Last administered on 01/10/19at 11:41; Start 01/10/19 at 08:00; Stop 01/10/19 at 11:59; Status DC Sodium Phosphate 40 mmol/Dextrose 263.3333 ml @ 62.5 mls/hr 1X ONCE IV ; Start 01/10/19 at 08:00; Stop 01/10/19 at 08:49; Status DC Potassium Phosphate 12 mmol/ Sodium Chloride 254 ml @ 125 mls/hr Q2H IV Last administered on 01/10/19at 15:24; Start 01/10/19 at 08:00; Stop 01/10/19 at 11:59; Status DC Potassium Chloride 40 meq/ Potassium Acetate 40 meq/Potassium Phosphate 15 mmol/ Magnesium Sulfate 10 meq/Calcium Gluconate 10 meq/ Multivitamins 10 ml/Chromium/ Copper/Manganese/ Seleni/Zn 1 ml/ Total Parenteral Nutrition/Amino Acids/Dextrose/ Fat Emulsion Intravenous 1,512 ml @ 63 mls/hr TPN CONT IV Last administered on 01/10/19at 22:08; Start 01/10/19 at 22:00; Stop 01/11/19 at 21:59 Pantoprazole Sodium (PROTONIX VIAL for IV PUSH) 40 mg BIDAC IVP Last administered on 01/11/19at 09:02; Start 01/10/19 at 16:30 Sodium Chloride 250 ml @ 250 mls/hr 1X ONCE IV Last administered on 01/10/19at 19:30; Start 01/10/19 at 19:30; Stop 01/10/19 at 20:29; Status DC Lorazepam (Ativan Inj) 1 mg PRN Q6HRS PRN IV ANXIETY / AGITATION Last administered on 01/10/19at 23:23; Start 01/10/19 at 23:15 Potassium Chloride 40 meq/ Potassium Acetate 40 meq/Potassium Phosphate 15 mmol/ Magnesium Sulfate 10 meq/Calcium Gluconate 10 meq/ Multivitamins 10 ml/Chromium/ Copper/Manganese/ Seleni/Zn 1 ml/ Total Parenteral Nutrition/Amino Acids/Dextrose/ Fat Emulsion Intravenous 1,512 ml @ 63 mls/hr TPN CONT IV ; Start 01/11/19 at 22:00; Stop 01/12/19 at 21:59 Active Scripts Active Reported Omeprazole 40 Mg Capsule. 1 Cap PO DAILY Vitals/I & O Vital Sign - Last 24 Hours 01/10/19 01/10/19 01/10/19 01/10/19 16:00 16:00 16:20 17:00 Temp 98.7 98.7 Pulse 104 105 Resp 26 26 B/P (MAP) 118/75 (89) 123/87 (99) Pulse Ox 96 96 97 O2 Delivery Room Air Room Air Room Air Room Air 01/10/19 01/10/19 01/10/19 01/10/19 18:00 19:00 20:00 20:00 Temp 98.6 98.6 Pulse 102 102 100 Resp 24 28 24 B/P (MAP) 99/63 (75) 106/68 (81) 117/70 (86) Pulse Ox 96 98 96 O2 Delivery Room Air Room Air Room Air Room Air 01/10/19 01/10/19 01/10/19 01/10/19 20:07 21:00 22:00 23:00 Pulse 97 96 97 Resp 30 25 28 B/P (MAP) 121/80 (94) 117/76 (90) 113/75 (88) Pulse Ox 97 97 96 98 O2 Delivery Room Air Room Air Room Air Room Air 01/10/19 01/11/19 01/11/19 01/11/19 23:59 00:00 01:00 02:00 Temp 98.6 98.6 Pulse 102 96 102 Resp 28 28 32 B/P (MAP) 118/80 (93) 106/66 (79) 119/74 (89) Pulse Ox 97 97 96 O2 Delivery Room Air Room Air Room Air Room Air 01/11/19 01/11/19 01/11/19 01/11/19 03:00 04:00 04:00 05:00 Temp 98.6 98.6 Pulse 94 97 105 Resp 32 22 32 B/P (MAP) 109/73 (85) 110/82 (91) 117/72 (87) Pulse Ox 97 96 96 O2 Delivery Room Air Room Air Room Air Room Air 01/11/19 01/11/19 01/11/19 01/11/19 06:00 07:00 07:58 08:00 Pulse 96 107 Resp 30 26 B/P (MAP) 114/75 (88) 123/73 (90) Pulse Ox 96 97 98 O2 Delivery Room Air Room Air Room Air Room Air 01/11/19 01/11/19 01/11/19 01/11/19 08:00 09:00 10:00 11:00 Temp 98.7 98.7 Pulse 96 104 97 97 Resp 22 30 29 29 B/P (MAP) 120/86 (97) 122/69 (86) 115/71 (86) 108/68 (81) Pulse Ox 97 96 97 97 O2 Delivery Room Air Room Air Room Air Room Air 01/11/19 01/11/19 01/11/19 01/11/19 11:14 12:00 12:00 13:00 Temp 100.1 100.1 Pulse 96 98 Resp 26 24 B/P (MAP) 115/62 (79) 106/67 (80) Pulse Ox 97 96 97 O2 Delivery Room Air Room Air Room Air Room Air 01/11/19 01/11/19 14:00 15:00 Pulse 95 93 Resp 20 21 B/P (MAP) 117/67 (84) 112/70 (84) Pulse Ox 97 98 O2 Delivery Room Air Room Air Intake and Output 01/10/19 01/10/19 01/11/19 14:59 22:59 06:59 Intake Total 365.55 ml 4614 ml 3465 ml Output Total 335 ml 770 ml 300 ml Balance 30.55 ml 3844 ml 3165 ml ISHAAN GIFFORD MD Jan 11, 2019 15:09
--- NOTE | 2019-01-11 16:55 | PDOC ---
PROGRESS NOTES Chief Complaint Chief Complaint Sepsis w/ hypotension, lactic acidosis and fever severely encephalopathic TRIES TO OPEN EYES hypernatremia, hypokalemia Hemoglobin 8.3 post transfusion 01/09 INR has climbed to 2.7 moved ICU Ammonia levels 208 ON ADMIT I discussed nurse ID following GI.consulted pulm consulted vit k 10mg sq plus 2 units FFP 01/07 PCXR 01/07 echo 01/07, cardiology consult The left ventricular systolic function is normal and the ejection fraction is within normal range. The Ejection Fraction is 60-65%. neurology consult, ct head NOTED 01/07 abd sono DNR History of Present Illness History of Present Illness more clear mentally severe alcohol abuse HX according to daughter Thrombocytopenia. , secondary to his liver disease and cirrhosis, Irregular wall thickening of the cecum and ascending colon with surrounding inflammatory type change and fluid. This is most compatible with severe colitis, could be of ischemic, infectious or inflammatory etiology. Colonic neoplasm not excludable. Milder colitis involving the remaining colon. Mild gallbladder distention with wall thickening and pericholecystic fluid, concerning for cholecystitis. Mild abdominal and pelvic ascites Mild wall thickening of the distal esophagus. Mild wall thickening of the duodenum. No significant small bowel distention. DNR status Very poor prognosis, no family this AM Vitals Vitals Vital Signs Date Time Temp Pulse Resp B/P (MAP) Pulse Ox O2 Delivery O2 Flow Rate FiO2 01/11/19 16:00 Room Air 01/11/19 15:37 98 01/11/19 15:00 93 21 112/70 (84) 01/11/19 12:00 100.1 100.1 Physical Exam Physical Exam GEN: alert and comfortable HEENT: Pupils equally round and reactive. Icterus. NG tube in place -mouth is moist NECK: Supple. LUNGS: decreased in bases HEART: S1 and S2 regular ABDOMEN: Mildly distended, soft, no grimace or guarding to palpation. Bowel sounds present. Rectal tube GENITOURINARY: Indwelling Galdamez in place. Urine is dark and concentrated. EXTREMITIES: No gross edema or cyanosis IVS: RIJ -clean SKIN: Warm to touch. He has multiple ecchymoses, especially lower extremities. NEUROLOGIC: Alert and follows simple commands General: Alert, No acute distress Heart: Normal S1, Normal S2 Lungs: Other (decrease bs) Abdomen: Soft, No tenderness, Other (ND) Extremities: No cyanosis, Other (noted eccyhmosis, 2 PLUS pedal edema ) Skin: Other (Bruising and jaundice) Labs LABS Laboratory Tests Test 01/10/19 17:55 01/11/19 05:50 Sodium Level 159 mmol/L (136-145) 151 mmol/L (136-145) Potassium Level 4.1 mmol/L (3.5-5.1) 4.1 mmol/L (3.5-5.1) Chloride Level 124 mmol/L (98-107) 121 mmol/L (98-107) Carbon Dioxide Level 24 mmol/L (21-32) 25 mmol/L (21-32) Anion Gap 11 (6-14) 5 (6-14) Blood Urea Nitrogen 16 mg/dL (8-26) 15 mg/dL (8-26) Creatinine 0.9 mg/dL (0.7-1.3) 0.9 mg/dL (0.7-1.3) Estimated GFR (Cockcroft-Gault) 91.7 91.7 Glucose Level 98 mg/dL (70-99) 145 mg/dL (70-99) Calcium Level 7.4 mg/dL (8.5-10.1) 7.5 mg/dL (8.5-10.1) Phosphorus Level 3.1 mg/dL (2.6-4.7) 2.8 mg/dL (2.6-4.7) White Blood Count 12.1 x10^3/uL (4.0-11.0) Red Blood Count 2.20 x10^6/uL (4.30-5.70) Hemoglobin 7.9 g/dL (13.0-17.5) Hematocrit 23.3 % (39.0-53.0) Mean Corpuscular Volume 106 fL (79-100) Mean Corpuscular Hemoglobin 36 pg (25-35) Mean Corpuscular Hemoglobin Concent 34 g/dL (31-37) Red Cell Distribution Width 25.0 % (11.5-14.5) Platelet Count 68 x10^3/uL (140-400) Neutrophils (%) (Auto) 65 % (31-73) Lymphocytes (%) (Auto) 21 % (24-48) Monocytes (%) (Auto) 8 % (0-9) Eosinophils (%) (Auto) 5 % (0-3) Basophils (%) (Auto) 1 % (0-3) Neutrophils # (Auto) 7.9 x10^3/uL (1.8-7.7) Lymphocytes # (Auto) 2.5 x10^3/uL (1.0-4.8) Monocytes # (Auto) 1.0 x10^3/uL (0.0-1.1) Eosinophils # (Auto) 0.6 x10^3/uL (0.0-0.7) Basophils # (Auto) 0.1 x10^3/uL (0.0-0.2) Prothrombin Time 23.0 SEC (11.7-14.0) Prothromb Time International Ratio 2.1 (0.8-1.1) BUN/Creatinine Ratio 17 (6-20) Magnesium Level 1.9 mg/dL (1.8-2.4) Total Bilirubin 17.2 mg/dL (0.2-1.0) Aspartate Amino Transf (AST/SGOT) 122 U/L (15-37) Alanine Aminotransferase (ALT/SGPT) 133 U/L (16-63) Alkaline Phosphatase 88 U/L (46-116) Total Protein 5.1 g/dL (6.4-8.2) Albumin 1.7 g/dL (3.4-5.0) Albumin/Globulin Ratio 0.5 (1.0-1.7) Assessment and Plan Assessmemt and Plan Problems Medical Problems: (1) Alcoholic liver disease Status: Acute (2) Cholelithiasis Status: Acute (3) Colitis Status: Acute (4) Jaundice Status: Acute (5) Pancreatitis Status: Acute (6) Thrombocytopenia Status: Acute Comment Review of Relevant I have reviewed the following items pierre (where applicable) has been applied. Labs Laboratory Tests Test 01/10/19 05:50 01/10/19 11:00 01/10/19 17:55 01/11/19 05:50 White Blood Count 10.3 x10^3/uL (4.0-11.0) 12.1 x10^3/uL (4.0-11.0) Red Blood Count 2.16 x10^6/uL (4.30-5.70) 2.20 x10^6/uL (4.30-5.70) Hemoglobin 7.7 g/dL (13.0-17.5) 7.9 g/dL (13.0-17.5) Hematocrit 22.9 % (39.0-53.0) 23.3 % (39.0-53.0) Mean Corpuscular Volume 106 fL (79-100) 106 fL (79-100) Mean Corpuscular Hemoglobin 36 pg (25-35) 36 pg (25-35) Mean Corpuscular Hemoglobin Concent 34 g/dL (31-37) 34 g/dL (31-37) Red Cell Distribution Width 24.9 % (11.5-14.5) 25.0 % (11.5-14.5) Platelet Count 80 x10^3/uL (140-400) 68 x10^3/uL (140-400) Neutrophils (%) (Auto) 65 % (31-73) 65 % (31-73) Lymphocytes (%) (Auto) 23 % (24-48) 21 % (24-48) Monocytes (%) (Auto) 9 % (0-9) 8 % (0-9) Eosinophils (%) (Auto) 3 % (0-3) 5 % (0-3) Basophils (%) (Auto) 0 % (0-3) 1 % (0-3) Neutrophils # (Auto) 6.7 x10^3/uL (1.8-7.7) 7.9 x10^3/uL (1.8-7.7) Lymphocytes # (Auto) 2.4 x10^3/uL (1.0-4.8) 2.5 x10^3/uL (1.0-4.8) Monocytes # (Auto) 0.9 x10^3/uL (0.0-1.1) 1.0 x10^3/uL (0.0-1.1) Eosinophils # (Auto) 0.3 x10^3/uL (0.0-0.7) 0.6 x10^3/uL (0.0-0.7) Basophils # (Auto) 0.0 x10^3/uL (0.0-0.2) 0.1 x10^3/uL (0.0-0.2) Prothrombin Time 25.4 SEC (11.7-14.0) 23.0 SEC (11.7-14.0) Prothromb Time International Ratio 2.3 (0.8-1.1) 2.1 (0.8-1.1) Sodium Level 162 mmol/L (136-145) 159 mmol/L (136-145) 151 mmol/L (136-145) Potassium Level 2.8 mmol/L (3.5-5.1) 4.1 mmol/L (3.5-5.1) 4.1 mmol/L (3.5-5.1) Chloride Level 127 mmol/L (98-107) 124 mmol/L (98-107) 121 mmol/L (98-107) Carbon Dioxide Level 27 mmol/L (21-32) 24 mmol/L (21-32) 25 mmol/L (21-32) Anion Gap 8 (6-14) 11 (6-14) 5 (6-14) Blood Urea Nitrogen 17 mg/dL (8-26) 16 mg/dL (8-26) 15 mg/dL (8-26) Creatinine 0.9 mg/dL (0.7-1.3) 0.9 mg/dL (0.7-1.3) 0.9 mg/dL (0.7-1.3) Estimated GFR (Cockcroft-Gault) 91.7 91.7 91.7 BUN/Creatinine Ratio 19 (6-20) 17 (6-20) Glucose Level 130 mg/dL (70-99) 98 mg/dL (70-99) 145 mg/dL (70-99) Calcium Level 7.6 mg/dL (8.5-10.1) 7.4 mg/dL (8.5-10.1) 7.5 mg/dL (8.5-10.1) Phosphorus Level 1.9 mg/dL (2.6-4.7) 3.1 mg/dL (2.6-4.7) 2.8 mg/dL (2.6-4.7) Magnesium Level 2.2 mg/dL (1.8-2.4) 1.9 mg/dL (1.8-2.4) Total Bilirubin 14.4 mg/dL (0.2-1.0) 17.2 mg/dL (0.2-1.0) Aspartate Amino Transf (AST/SGOT) 169 U/L (15-37) 122 U/L (15-37) Alanine Aminotransferase (ALT/SGPT) 155 U/L (16-63) 133 U/L (16-63) Alkaline Phosphatase 80 U/L (46-116) 88 U/L (46-116) Total Protein 4.9 g/dL (6.4-8.2) 5.1 g/dL (6.4-8.2) Albumin 1.7 g/dL (3.4-5.0) 1.7 g/dL (3.4-5.0) Albumin/Globulin Ratio 0.5 (1.0-1.7) 0.5 (1.0-1.7) Urine Osmolality 819 mOsmol/kg (.) Urine Sodium <60 mmol/L (Not Estab.) Urine Potassium 96.7 mmol/L (Not Estab.) Urine Chloride <60 mmol/L (Not Estab.) Laboratory Tests Test 01/10/19 17:55 01/11/19 05:50 Sodium Level 159 mmol/L (136-145) 151 mmol/L (136-145) Potassium Level 4.1 mmol/L (3.5-5.1) 4.1 mmol/L (3.5-5.1) Chloride Level 124 mmol/L (98-107) 121 mmol/L (98-107) Carbon Dioxide Level 24 mmol/L (21-32) 25 mmol/L (21-32) Anion Gap 11 (6-14) 5 (6-14) Blood Urea Nitrogen 16 mg/dL (8-26) 15 mg/dL (8-26) Creatinine 0.9 mg/dL (0.7-1.3) 0.9 mg/dL (0.7-1.3) Estimated GFR (Cockcroft-Gault) 91.7 91.7 Glucose Level 98 mg/dL (70-99) 145 mg/dL (70-99) Calcium Level 7.4 mg/dL (8.5-10.1) 7.5 mg/dL (8.5-10.1) Phosphorus Level 3.1 mg/dL (2.6-4.7) 2.8 mg/dL (2.6-4.7) White Blood Count 12.1 x10^3/uL (4.0-11.0) Red Blood Count 2.20 x10^6/uL (4.30-5.70) Hemoglobin 7.9 g/dL (13.0-17.5) Hematocrit 23.3 % (39.0-53.0) Mean Corpuscular Volume 106 fL (79-100) Mean Corpuscular Hemoglobin 36 pg (25-35) Mean Corpuscular Hemoglobin Concent 34 g/dL (31-37) Red Cell Distribution Width 25.0 % (11.5-14.5) Platelet Count 68 x10^3/uL (140-400) Neutrophils (%) (Auto) 65 % (31-73) Lymphocytes (%) (Auto) 21 % (24-48) Monocytes (%) (Auto) 8 % (0-9) Eosinophils (%) (Auto) 5 % (0-3) Basophils (%) (Auto) 1 % (0-3) Neutrophils # (Auto) 7.9 x10^3/uL (1.8-7.7) Lymphocytes # (Auto) 2.5 x10^3/uL (1.0-4.8) Monocytes # (Auto) 1.0 x10^3/uL (0.0-1.1) Eosinophils # (Auto) 0.6 x10^3/uL (0.0-0.7) Basophils # (Auto) 0.1 x10^3/uL (0.0-0.2) Prothrombin Time 23.0 SEC (11.7-14.0) Prothromb Time International Ratio 2.1 (0.8-1.1) BUN/Creatinine Ratio 17 (6-20) Magnesium Level 1.9 mg/dL (1.8-2.4) Total Bilirubin 17.2 mg/dL (0.2-1.0) Aspartate Amino Transf (AST/SGOT) 122 U/L (15-37) Alanine Aminotransferase (ALT/SGPT) 133 U/L (16-63) Alkaline Phosphatase 88 U/L (46-116) Total Protein 5.1 g/dL (6.4-8.2) Albumin 1.7 g/dL (3.4-5.0) Albumin/Globulin Ratio 0.5 (1.0-1.7) Microbiology 01/06/19 Blood Culture - Preliminary, Resulted NO GROWTH AFTER 4 DAYS 01/04/19 Urine Culture - Final, Complete 01/04/19 Urine Culture Result 1 (DONALD) - Final, Complete Medications Current Medications Iohexol (Omnipaque 240 Mg/ml) 30 ml 1X ONCE PO Last administered on 01/04/19at 15:15; Start 01/04/19 at 15:15; Stop 01/04/19 at 15:17; Status DC Iohexol (Omnipaque 300 Mg/ml) 75 ml 1X ONCE IV Last administered on 01/04/19at 16:20; Start 01/04/19 at 15:15; Stop 01/04/19 at 15:17; Status DC Info (CONTRAST GIVEN -- Rx MONITORING) 1 each PRN DAILY PRN MC SEE COMMENTS; Start 01/04/19 at 15:30; Stop 01/06/19 at 15:29; Status DC Multivitamins 10 ml/Thiamine HCl 100 mg/Folic Acid 1 mg/Sodium Chloride 1,011.2 ml @ 100 mls/ hr DAILY IV Last administered on 01/08/19at 08:12; Start 01/04/19 at 18:00; Stop 01/08/19 at 19:07; Status DC Chlordiazepoxide (Librium) 50 mg PRN Q1HR PRN PO For CIWA 8-14 Last administered on 01/04/19at 18:17; Start 01/04/19 at 17:45 Chlordiazepoxide (Librium) 100 mg PRN Q1HR PRN PO For CIWA 15 or greater Last administered on 01/05/19at 06:27; Start 01/04/19 at 17:45 Lorazepam (Ativan) 4 mg PRN Q1HR PRN PO For CIWA 8-14 Last administered on 01/04/19at 18:17; Start 01/04/19 at 17:45; Stop 01/10/19 at 07:34; Status DC Lorazepam (Ativan) 8 mg PRN Q1HR PRN PO For CIWA 15 or greater; Start 01/04/19 at 17:45; Stop 01/10/19 at 07:34; Status DC Haloperidol Lactate (Haldol Inj) 5 mg PRN Q4HRS PRN IVP Hallucinatns ,Confusn,Delirium; Start 01/04/19 at 17:45 Diphenhydramine HCl (Benadryl) 25 mg PRN Q15MIN PRN IVP EPS symptoms 2'Haldol admin; Start 01/04/19 at 17:45 Clonidine HCl (Catapres) 0.1 mg PRN Q1HR PRN PO SBP > 180 or DBP > 100, MRX3 Last administered on 01/08/19at 07:18; Start 01/04/19 at 17:45; Stop 01/08/19 at 08:58; Status DC Lorazepam (Ativan Inj) 2 mg PRN Q1HR PRN IV For CIWA 8-14 Last administered on 01/09/19at 12:59; Start 01/04/19 at 19:15 Lorazepam (Ativan Inj) 4 mg PRN Q1HR PRN IV For CIWA 15 or greater Last administered on 01/05/19at 06:28; Start 01/04/19 at 19:15 Lorazepam (Ativan Inj) 2 mg PRN Q15MIN PRN IV SEE COMMENTS; Start 01/04/19 at 19:15; Status UNV Lorazepam (Ativan Inj) 4 mg PRN Q15MIN PRN IV SEE COMMENTS; Start 01/04/19 at 19:15; Status UNV Ondansetron HCl (Zofran) 4 mg PRN Q6HRS PRN IV NAUSEA/VOMITING Last administered on 01/04/19at 19:34; Start 01/04/19 at 19:30 Pantoprazole Sodium (PROTONIX VIAL for IV PUSH) 40 mg DAILYAC IVP Last administered on 01/06/19at 10:36; Start 01/06/19 at 10:00; Stop 01/06/19 at 12:17; Status DC Phytonadione (Vitamin K Ampule) 10 mg 1X ONCE SQ Last administered on 01/06/19at 10:36; Start 01/06/19 at 10:15; Stop 01/06/19 at 10:16; Status DC Piperacillin Sod/ Tazobactam Sod (Zosyn Per Pharmacy) 1 each PRN DAILY PRN MC SEE COMMENTS; Start 01/06/19 at 10:30 Piperacillin Sod/ Tazobactam Sod 3.375 gm/Sodium Chloride 50 ml @ 100 mls/hr Q6HRS IV Last administered on 01/11/19at 11:14; Start 01/06/19 at 11:00 Lactulose (Lactulose) 30 gm Q6HRS NG Last administered on 01/09/19at 05:53; Start 01/06/19 at 12:00; Stop 01/09/19 at 10:51; Status DC Metronidazole 100 ml @ 100 mls/hr Q8HRS IV Last administered on 01/09/19at 05:53; Start 01/06/19 at 14:00; Stop 01/09/19 at 07:19; Status DC Pantoprazole Sodium 80 mg/ Sodium Chloride 100 ml @ 10 mls/hr Q10H IV Last administered on 01/10/19at 02:31; Start 01/06/19 at 12:30; Stop 01/10/19 at 12:11; Status DC Octreotide Acetate 500 mcg/ Sodium Chloride 101 ml @ 0 mls/hr CONT PRN IV SEE I/O RECORD Last administered on 01/08/19at 06:08; Start 01/06/19 at 12:15; Stop 01/08/19 at 10:48; Status DC Norepinephrine Bitartrate 250 ml @ 14.235 mls/ hr CONT PRN IV SEE I/O RECORD; Start 01/06/19 at 20:15 Albumin Human 100 ml @ 100 mls/hr 1X ONCE IV Last administered on 01/06/19at 2 1:30; Start 01/06/19 at 20:15; Stop 01/06/19 at 21:14; Status DC Phytonadione (Vitamin K Ampule) 10 mg 1X ONCE SQ Last administered on 01/07/19at 13:04; Start 01/07/19 at 11:45; Stop 01/07/19 at 11:46; Status DC Albuterol/ Ipratropium (Duoneb) 3 ml RTQID NEB Last administered on 01/11/19at 15:36; Start 01/07/19 at 16:00 Sodium Chloride 1,000 ml @ 75 mls/hr [id number] IV Last administered on 01/08/19at 23:47; Start 01/08/19 at 06:00; Stop 01/09/19 at 10:19; Status DC Labetalol HCl (Normodyne Iv Push) 10 mg PRN Q4HRS PRN IVP HYPERTENSION; Start 01/08/19 at 09:00 Potassium Bicarbonate (Potassium Effervescent Tablet) 40 meq 1X ONCE PEG Last administered on 01/08/19 12:24; Start 01/08/19 at 11:30; Stop 01/08/19 at 11:33; Status DC Potassium Bicarbonate (Potassium Effervescent Tablet) 40 meq 1X ONCE PEG Last administered on 01/08/19at 16:06; Start 01/08/19 at 16:00; Stop 01/08/19 at 16:01; Status DC Potassium Bicarbonate (Potassium Effervescent Tablet) 80 meq 1X ONCE PEG Last administered on 01/09/19at 06:58; Start 01/09/19 at 06:15; Stop 01/09/19 at 06:21; Status DC Artificial Tears (Artificial Tears) 1 drop PRN Q15MIN PRN OU DRY EYE Last administered on 01/09/19at 10:11; Start 01/09/19 at 10:00 Dextrose/Sodium Chloride 1,000 ml @ 75 mls/hr [id number] IV Last administered on 01/09/19 11:03; Start 01/09/19 at 10:30; Stop 01/09/19 at 12:20; Status DC Potassium Chloride/Water 50 ml @ 50 mls/hr Q1H IV ; Start 01/09/19 at 10:30; Stop 01/09/19 at 12:29; Status UNV Potassium Chloride/Water 100 ml @ 100 mls/hr Q1H IV ; Start 01/09/19 at 11:00; Stop 01/09/19 at 11:00; Status DC Lactulose (Lactulose) 30 gm BID NG Last administered on 01/09/19at 20:52; Start 01/09/19 at 21:00; Stop 01/10/19 at 13:57; Status DC Dextrose 1,000 ml @ 100 mls/hr Q10H IV Last administered on 01/11/19at 14:00; Start 01/09/19 at 12:30 Info (Tpn Per Pharmacy) 1 each PRN DAILY PRN MC SEE COMMENTS Last administered on 01/11/19at 12:37; Start 01/09/19 at 15:15 Potassium Chloride 50 meq/ Potassium Phosphate 13.6 mmol/Magnesium Sulfate 10 meq/ Calcium Gluconate 10 meq/ Multivitamins 10 ml/Chromium/ Copper/Manganese/ Seleni/Zn 1 ml/ Total Parenteral Nutrition/Amino Acids/Dextrose/ Fat Emulsion Intravenous 1,512 ml @ 63 mls/hr TPN CONT IV Last administered on 01/09/19at 21:41; Start 01/09/19 at 22:00; Stop 01/10/19 at 21:59; Status DC Potassium Chloride/Water 50 ml @ 50 mls/hr Q1H IV Last administered on 01/09/19at 20:51; Start 01/09/19 at 18:00; Stop 01/09/19 at 21:59; Status DC Potassium Phosphate 13.6 mmol/Dextrose 254.5333 ml @ 62.646 m... 1X ONCE IV Last administered on 01/09/19at 21:49; Start 01/09/19 at 22:00; Stop 01/10/19 at 08:03; Status DC Potassium Chloride/Water 50 ml @ 50 mls/hr Q1H IV Last administered on 01/10/19at 11:41; Start 01/10/19 at 08:00; Stop 01/10/19 at 11:59; Status DC Sodium Phosphate 40 mmol/Dextrose 263.3333 ml @ 62.5 mls/hr 1X ONCE IV ; Start 01/10/19 at 08:00; Stop 01/10/19 at 08:49; Status DC Potassium Phosphate 12 mmol/ Sodium Chloride 254 ml @ 125 mls/hr Q2H IV Last administered on 01/10/19at 15:24; Start 01/10/19 at 08:00; Stop 01/10/19 at 11:59; Status DC Potassium Chloride 40 meq/ Potassium Acetate 40 meq/Potassium Phosphate 15 mmol/ Magnesium Sulfate 10 meq/Calcium Gluconate 10 meq/ Multivitamins 10 ml/Chromium/ Copper/Manganese/ Seleni/Zn 1 ml/ Total Parenteral Nutrition/Amino Acids/Dextrose/ Fat Emulsion Intravenous 1,512 ml @ 63 mls/hr TPN CONT IV Last administered on 01/10/19at 22:08; Start 01/10/19 at 22:00; Stop 01/11/19 at 21:59 Pantoprazole Sodium (PROTONIX VIAL for IV PUSH) 40 mg BIDAC IVP Last administered on 01/11/19at 09:02; Start 01/10/19 at 16:30 Sodium Chloride 250 ml @ 250 mls/hr 1X ONCE IV Last administered on 01/10/19at 19:30; Start 01/10/19 at 19:30; Stop 01/10/19 at 20:29; Status DC Lorazepam (Ativan Inj) 1 mg PRN Q6HRS PRN IV ANXIETY / AGITATION Last administered on 01/10/19at 23:23; Start 01/10/19 at 23:15 Potassium Chloride 40 meq/ Potassium Acetate 40 meq/Potassium Phosphate 15 mmol/ Magnesium Sulfate 10 meq/Calcium Gluconate 10 meq/ Multivitamins 10 ml/Chromium/ Copper/Manganese/ Seleni/Zn 1 ml/ Total Parenteral Nutrition/Amino Acids/Dextrose/ Fat Emulsion Intravenous 1,512 ml @ 63 mls/hr TPN CONT IV ; Start 01/11/19 at 22:00; Stop 01/12/19 at 21:59 Active Scripts Active Reported Omeprazole 40 Mg Capsule.dr Warren Cap PO DAILY Vitals/I & O Vital Sign - Last 24 Hours 01/10/19 01/10/19 01/10/19 01/10/19 17:00 18:00 19:00 20:00 Temp 98.6 98.6 Pulse 105 102 102 100 Resp 26 24 28 24 B/P (MAP) 123/87 (99) 99/63 (75) 106/68 (81) 117/70 (86) Pulse Ox 97 96 98 96 O2 Delivery Room Air Room Air Room Air Room Air 01/10/19 01/10/19 01/10/19 01/10/19 20:00 20:07 21:00 22:00 Pulse 97 96 Resp 30 25 B/P (MAP) 121/80 (94) 117/76 (90) Pulse Ox 97 97 96 O2 Delivery Room Air Room Air Room Air Room Air 01/10/19 01/10/19 01/11/19 01/11/19 23:00 23:59 00:00 01:00 Temp 98.6 98.6 Pulse 97 102 96 Resp 28 28 28 B/P (MAP) 113/75 (88) 118/80 (93) 106/66 (79) Pulse Ox 98 97 97 O2 Delivery Room Air Room Air Room Air Room Air 01/11/19 01/11/19 01/11/19 01/11/19 02:00 03:00 04:00 04:00 Temp 98.6 98.6 Pulse 102 94 97 Resp 32 32 22 B/P (MAP) 119/74 (89) 109/73 (85) 110/82 (91) Pulse Ox 96 97 96 O2 Delivery Room Air Room Air Room Air Room Air 01/11/19 01/11/19 01/11/19 01/11/19 05:00 06:00 07:00 07:58 Pulse 105 96 107 Resp 32 30 26 B/P (MAP) 117/72 (87) 114/75 (88) 123/73 (90) Pulse Ox 96 96 97 98 O2 Delivery Room Air Room Air Room Air Room Air 01/11/19 01/11/19 01/11/19 01/11/19 08:00 08:00 09:00 10:00 Temp 98.7 98.7 Pulse 96 104 97 Resp 22 30 29 B/P (MAP) 120/86 (97) 122/69 (86) 115/71 (86) Pulse Ox 97 96 97 O2 Delivery Room Air Room Air Room Air Room Air 01/11/19 01/11/19 01/11/19 01/11/19 11:00 11:14 12:00 12:00 Temp 100.1 100.1 Pulse 97 96 Resp 29 26 B/P (MAP) 108/68 (81) 115/62 (79) Pulse Ox 97 97 96 O2 Delivery Room Air Room Air Room Air Room Air 01/11/19 01/11/19 01/11/19 01/11/19 13:00 14:00 15:00 15:37 Pulse 98 95 93 Resp 24 20 21 B/P (MAP) 106/67 (80) 117/67 (84) 112/70 (84) Pulse Ox 97 97 98 98 O2 Delivery Room Air Room Air Room Air Room Air 01/11/19 16:00 O2 Delivery Room Air Intake and Output 01/10/19 01/10/19 01/11/19 14:59 22:59 06:59 Intake Total 365.55 ml 4614 ml 3465 ml Output Total 335 ml 770 ml 300 ml Balance 30.55 ml 3844 ml 3165 ml KINSEY FRANCO MD Jan 11, 2019 16:55
[2019-01-11] MEDS ORDERED: [UNRECOGNIZED DRUG - OTHER] IV SCH ×10 (22:00)
[2019-01-11] MEDS ORDERED: DEXTROSE 70% IV SCH ×10 (22:00)
[2019-01-11] MEDS ORDERED: TOTAL PARENTERAL NUTRITION IV SCH ×10 (22:00)
[2019-01-11] MEDS ORDERED: AMINO ACID IV SCH ×10 (22:00)
[2019-01-12] VITALS (24 sets, daily range): BP systolic 98–128; BP diastolic 65–85
[2019-01-12] MEDS: PIPERACILLIN/TAZOBACTAM 3.375 GM in IV NORMAL SALINE 50ML 50 ML IV SCH ×4 (00:41→17:44)
[2019-01-12] MEDS: IV DEXTROSE 5% 1,000 ML IV SCH ×3 (00:51→20:24)
[2019-01-12 06:39] LABS: BASO # 0.2 x10^3/uL (0.0-0.2); BASO % 1 % (0-3); EOS # 0.7 x10^3/uL (0.0-0.7); EOS % 5 % (0-3); HEMATOCRIT 25.1 % (39.0-53.0); HEMOGLOBIN 8.2 g/dL (13.0-17.5); LYMPH # 2.3 x10^3/uL (1.0-4.8); LYMPH % 15 % (24-48); MEAN CORPUSCULAR HEMOGLOBIN 35 pg (25-35); MEAN CORPUSCULAR HGB CONC 33 g/dL (31-37); MEAN CORPUSCULAR VOLUME 108 fL (79-100); MONO # 1.3 x10^3/uL (0.0-1.1); MONO % 8 % (0-9); NEUT # 11.4 x10^3/uL (1.8-7.7); NEUT % 72 % (31-73); PLATELET COUNT 56 x10^3/uL (140-400); RED BLOOD COUNT 2.32 x10^6/uL (4.30-5.70); RED CELL DISTRIBUTION WIDTH 23.5 % (11.5-14.5); WHITE BLOOD COUNT 15.9 x10^3/uL (4.0-11.0)
[2019-01-12 07:00] LABS: PROTHROMBIN TIME PATIENT 21.4 SEC (11.7-14.0)
[2019-01-12 07:01] LABS: MAGNESIUM 1.9 mg/dL (1.8-2.4); PHOSPHORUS 2.5 mg/dL (2.6-4.7)
[2019-01-12 07:09] LABS: ALBUMIN 1.7 g/dL (3.4-5.0); ALBUMIN/GLOBULIN RATIO 0.5 (1.0-1.7); CALCIUM 7.7 mg/dL (8.5-10.1); GFR 81.2; POTASSIUM 3.9 mmol/L (3.5-5.1); TOTAL BILIRUBIN 20.5 mg/dL (0.2-1.0); TOTAL PROTEIN 5.3 g/dL (6.4-8.2)
[2019-01-12] MEDS: IPRATRPIUM/ALBUTEROL 0.5/2.5MG 3 ML NEBU. NEB SCH ×4 (08:12→20:19)
--- NOTE | 2019-01-12 08:16 | PDOC ---
PULMONARY PROGRESS NOTES Subjective off BIPAP, fully awake. denies dyspnea, although not completely oriented. good oxygen saturation on room air Vitals Vital Signs Date Time Temp Pulse Resp B/P (MAP) Pulse Ox O2 Delivery O2 Flow Rate FiO2 01/12/19 07:40 Room Air 01/12/19 07:00 100.0 107 26 116/78 (91) 96 100.0 01/12/19 03:00 15.0 General: Alert, No acute distress Lungs: Other (decrease bs) Cardiovascular: S1 Abdomen: Soft Extremities: Other (1+edema) Labs Laboratory Tests Test 01/10/19 11:00 01/10/19 17:55 01/11/19 05:50 01/12/19 06:00 Urine Osmolality 819 mOsmol/kg (.) Urine Sodium <60 mmol/L (Not Estab.) Urine Potassium 96.7 mmol/L (Not Estab.) Urine Chloride <60 mmol/L (Not Estab.) Sodium Level 159 mmol/L (136-145) 151 mmol/L (136-145) 142 mmol/L (136-145) Potassium Level 4.1 mmol/L (3.5-5.1) 4.1 mmol/L (3.5-5.1) 3.9 mmol/L (3.5-5.1) Chloride Level 124 mmol/L (98-107) 121 mmol/L (98-107) 111 mmol/L (98-107) Carbon Dioxide Level 24 mmol/L (21-32) 25 mmol/L (21-32) 22 mmol/L (21-32) Anion Gap 11 (6-14) 5 (6-14) 9 (6-14) Blood Urea Nitrogen 16 mg/dL (8-26) 15 mg/dL (8-26) 19 mg/dL (8-26) Creatinine 0.9 mg/dL (0.7-1.3) 0.9 mg/dL (0.7-1.3) 1.0 mg/dL (0.7-1.3) Estimated GFR (Cockcroft-Gault) 91.7 91.7 81.2 Glucose Level 98 mg/dL (70-99) 145 mg/dL (70-99) 144 mg/dL (70-99) Calcium Level 7.4 mg/dL (8.5-10.1) 7.5 mg/dL (8.5-10.1) 7.7 mg/dL (8.5-10.1) Phosphorus Level 3.1 mg/dL (2.6-4.7) 2.8 mg/dL (2.6-4.7) 2.5 mg/dL (2.6-4.7) White Blood Count 12.1 x10^3/uL (4.0-11.0) 15.9 x10^3/uL (4.0-11.0) Red Blood Count 2.20 x10^6/uL (4.30-5.70) 2.32 x10^6/uL (4.30-5.70) Hemoglobin 7.9 g/dL (13.0-17.5) 8.2 g/dL (13.0-17.5) Hematocrit 23.3 % (39.0-53.0) 25.1 % (39.0-53.0) Mean Corpuscular Volume 106 fL (79-100) 108 fL (79-100) Mean Corpuscular Hemoglobin 36 pg (25-35) 35 pg (25-35) Mean Corpuscular Hemoglobin Concent 34 g/dL (31-37) 33 g/dL (31-37) Red Cell Distribution Width 25.0 % (11.5-14.5) 23.5 % (11.5-14.5) Platelet Count 68 x10^3/uL (140-400) 56 x10^3/uL (140-400) Neutrophils (%) (Auto) 65 % (31-73) 72 % (31-73) Lymphocytes (%) (Auto) 21 % (24-48) 15 % (24-48) Monocytes (%) (Auto) 8 % (0-9) 8 % (0-9) Eosinophils (%) (Auto) 5 % (0-3) 5 % (0-3) Basophils (%) (Auto) 1 % (0-3) 1 % (0-3) Neutrophils # (Auto) 7.9 x10^3/uL (1.8-7.7) 11.4 x10^3/uL (1.8-7.7) Lymphocytes # (Auto) 2.5 x10^3/uL (1.0-4.8) 2.3 x10^3/uL (1.0-4.8) Monocytes # (Auto) 1.0 x10^3/uL (0.0-1.1) 1.3 x10^3/uL (0.0-1.1) Eosinophils # (Auto) 0.6 x10^3/uL (0.0-0.7) 0.7 x10^3/uL (0.0-0.7) Basophils # (Auto) 0.1 x10^3/uL (0.0-0.2) 0.2 x10^3/uL (0.0-0.2) Prothrombin Time 23.0 SEC (11.7-14.0) 21.4 SEC (11.7-14.0) Prothromb Time International Ratio 2.1 (0.8-1.1) 1.9 (0.8-1.1) BUN/Creatinine Ratio 17 (6-20) 19 (6-20) Magnesium Level 1.9 mg/dL (1.8-2.4) 1.9 mg/dL (1.8-2.4) Total Bilirubin 17.2 mg/dL (0.2-1.0) 20.5 mg/dL (0.2-1.0) Aspartate Amino Transf (AST/SGOT) 122 U/L (15-37) 100 U/L (15-37) Alanine Aminotransferase (ALT/SGPT) 133 U/L (16-63) 106 U/L (16-63) Alkaline Phosphatase 88 U/L (46-116) 98 U/L (46-116) Total Protein 5.1 g/dL (6.4-8.2) 5.3 g/dL (6.4-8.2) Albumin 1.7 g/dL (3.4-5.0) 1.7 g/dL (3.4-5.0) Albumin/Globulin Ratio 0.5 (1.0-1.7) 0.5 (1.0-1.7) Laboratory Tests Test 01/12/19 06:00 White Blood Count 15.9 x10^3/uL (4.0-11.0) Red Blood Count 2.32 x10^6/uL (4.30-5.70) Hemoglobin 8.2 g/dL (13.0-17.5) Hematocrit 25.1 % (39.0-53.0) Mean Corpuscular Volume 108 fL (79-100) Mean Corpuscular Hemoglobin 35 pg (25-35) Mean Corpuscular Hemoglobin Concent 33 g/dL (31-37) Red Cell Distribution Width 23.5 % (11.5-14.5) Platelet Count 56 x10^3/uL (140-400) Neutrophils (%) (Auto) 72 % (31-73) Lymphocytes (%) (Auto) 15 % (24-48) Monocytes (%) (Auto) 8 % (0-9) Eosinophils (%) (Auto) 5 % (0-3) Basophils (%) (Auto) 1 % (0-3) Neutrophils # (Auto) 11.4 x10^3/uL (1.8-7.7) Lymphocytes # (Auto) 2.3 x10^3/uL (1.0-4.8) Monocytes # (Auto) 1.3 x10^3/uL (0.0-1.1) Eosinophils # (Auto) 0.7 x10^3/uL (0.0-0.7) Basophils # (Auto) 0.2 x10^3/uL (0.0-0.2) Prothrombin Time 21.4 SEC (11.7-14.0) Prothromb Time International Ratio 1.9 (0.8-1.1) Sodium Level 142 mmol/L (136-145) Potassium Level 3.9 mmol/L (3.5-5.1) Chloride Level 111 mmol/L (98-107) Carbon Dioxide Level 22 mmol/L (21-32) Anion Gap 9 (6-14) Blood Urea Nitrogen 19 mg/dL (8-26) Creatinine 1.0 mg/dL (0.7-1.3) Estimated GFR (Cockcroft-Gault) 81.2 BUN/Creatinine Ratio 19 (6-20) Glucose Level 144 mg/dL (70-99) Calcium Level 7.7 mg/dL (8.5-10.1) Phosphorus Level 2.5 mg/dL (2.6-4.7) Magnesium Level 1.9 mg/dL (1.8-2.4) Total Bilirubin 20.5 mg/dL (0.2-1.0) Aspartate Amino Transf (AST/SGOT) 100 U/L (15-37) Alanine Aminotransferase (ALT/SGPT) 106 U/L (16-63) Alkaline Phosphatase 98 U/L (46-116) Total Protein 5.3 g/dL (6.4-8.2) Albumin 1.7 g/dL (3.4-5.0) Albumin/Globulin Ratio 0.5 (1.0-1.7) Medications Active Scripts Medications Dose Route/Sig Max Daily Dose Days Date Category Omeprazole 40 Mg Capsule.dr 1 Cap PO DAILY 01/04/19 Reported Impression . 1. Acute hypoxic respiratory failure secondary to multifactorial etiologies including acute hepatic encephalopathy, sepsis, suspected acute lung injury, risk for aspiration, and acute on chronic hepatic failure, resolved 2. Acute alcoholic hepatic encephalopathy. 3. Acute on chronic liver failure with increased bilirubin and transaminases. GI is following. Now trending down 4. Marked lactic acidosis improved. Likely sepsis, but could be related to type B lactic acidosis from liver failure. 5. Coagulopathy secondary to liver failure. 6. Marked metabolic acidosis on ABGs related to lactic acidosis and hepatic failure. improved 7. hypernatremia, per renal Plan . 1. Discussed with RN. We will continue to observe and give O2 if needed, BiPap if needed, although I do not anticipate that 2. ABG adequate 3. Correction of metabolic acidosis. no further bicarbonate. 4. Continue broad-spectrum antibiotics. 5. Follow GI recommendation. 6. octreotide drip.per GI 7. DuoNeb. 8. Alcohol withdrawal precautions. 9. There is also concern for hepatic or colonic malignancy.GI following 10.Monitor Na, per renal 11.speech eval and if can eat PO, wean TPN D/W BELÉN HAINES MD Jan 12, 2019 08:16
[2019-01-12] MEDS: PANTOPRAZOLE IV PUSH 40 MG VIAL. IVP SCH ×2 (08:54→17:44)
--- NOTE | 2019-01-12 08:54 | PDOC ---
Infectious Disease Note Subjective Subjective Low-grade fevers Tmax 100.5 Satting 96% Rectal tube now out Eating Still on TPN Denies pain/upset stomach ROS ROS limited, pt confused Vital Sign Vital Signs Vital Signs Date Time Temp Pulse Resp B/P (MAP) Pulse Ox O2 Delivery O2 Flow Rate FiO2 01/12/19 08:12 96 Room Air 01/12/19 07:00 100.0 107 26 116/78 (91) 100.0 01/12/19 03:00 15.0 Physical Exam PHYSICAL EXAM GENERAL: Alert, calm, jaundiced HEENT: Pupils equally round and reactive. Icterus. Oral cavity dry NECK: Supple. LUNGS: Decreased in bases HEART: S1 and S2 regular ABDOMEN: Mildly distended, soft, no grimace or guarding to palpation. Bowel sounds present. GENITOURINARY: Indwelling Galdamez in place. EXTREMITIES: No gross edema or cyanosis SKIN: Warm to touch. Multiple ecchymoses, especially lower extremities. Petechial-type rash arms/abdomen NEUROLOGIC: Alert, confused and follows simple commands RIJ -clean Labs Lab Laboratory Tests Test 01/12/19 06:00 White Blood Count 15.9 x10^3/uL (4.0-11.0) Red Blood Count 2.32 x10^6/uL (4.30-5.70) Hemoglobin 8.2 g/dL (13.0-17.5) Hematocrit 25.1 % (39.0-53.0) Mean Corpuscular Volume 108 fL (79-100) Mean Corpuscular Hemoglobin 35 pg (25-35) Mean Corpuscular Hemoglobin Concent 33 g/dL (31-37) Red Cell Distribution Width 23.5 % (11.5-14.5) Platelet Count 56 x10^3/uL (140-400) Neutrophils (%) (Auto) 72 % (31-73) Lymphocytes (%) (Auto) 15 % (24-48) Monocytes (%) (Auto) 8 % (0-9) Eosinophils (%) (Auto) 5 % (0-3) Basophils (%) (Auto) 1 % (0-3) Neutrophils # (Auto) 11.4 x10^3/uL (1.8-7.7) Lymphocytes # (Auto) 2.3 x10^3/uL (1.0-4.8) Monocytes # (Auto) 1.3 x10^3/uL (0.0-1.1) Eosinophils # (Auto) 0.7 x10^3/uL (0.0-0.7) Basophils # (Auto) 0.2 x10^3/uL (0.0-0.2) Prothrombin Time 21.4 SEC (11.7-14.0) Prothromb Time International Ratio 1.9 (0.8-1.1) Sodium Level 142 mmol/L (136-145) Potassium Level 3.9 mmol/L (3.5-5.1) Chloride Level 111 mmol/L (98-107) Carbon Dioxide Level 22 mmol/L (21-32) Anion Gap 9 (6-14) Blood Urea Nitrogen 19 mg/dL (8-26) Creatinine 1.0 mg/dL (0.7-1.3) Estimated GFR (Cockcroft-Gault) 81.2 BUN/Creatinine Ratio 19 (6-20) Glucose Level 144 mg/dL (70-99) Calcium Level 7.7 mg/dL (8.5-10.1) Phosphorus Level 2.5 mg/dL (2.6-4.7) Magnesium Level 1.9 mg/dL (1.8-2.4) Total Bilirubin 20.5 mg/dL (0.2-1.0) Aspartate Amino Transf (AST/SGOT) 100 U/L (15-37) Alanine Aminotransferase (ALT/SGPT) 106 U/L (16-63) Alkaline Phosphatase 98 U/L (46-116) Total Protein 5.3 g/dL (6.4-8.2) Albumin 1.7 g/dL (3.4-5.0) Albumin/Globulin Ratio 0.5 (1.0-1.7) Micro Microbiology 01/06/19 Blood Culture - Final, Complete NO GROWTH AFTER 5 DAYS 01/04/19 Urine Culture - Final, Complete 01/04/19 Urine Culture Result 1 (DONALD) - Final, Complete Objective Assessment Fever resolved - cults neg Leukocytosis - mild increase ? reactive - clinically much better Thrombocytopenia - trending ? liver disease possible med Transaminitis - now on TPN Multi-Organ Failure -stable ? 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 F/u Liver mass per GI Continue to monitor DNR/DNI D/w nursing Poor prognosis Critically ill Attending Co-Sign The patient was seen and interviewed as well as examined at the bedside. The chart was reviewed. The case was discussed. Agree with the plan of care. NABIL MATHIS APRN Jan 12, 2019 08:54 IVON WOODARD MD Jan 12, 2019 11:08
--- NOTE | 2019-01-12 09:23 | PDOC ---
PROGRESS NOTES Chief Complaint Chief Complaint Sepsis w/ hypotension, lactic acidosis and fever severely encephalopathic TRIES TO OPEN EYES hypernatremia, hypokalemia Hemoglobin 8.3 post transfusion 01/09 INR has climbed to 2.7 moved ICU Ammonia levels 208 ON ADMIT I discussed nurse ID following GI.consulted pulm consulted vit k 10mg sq plus 2 units FFP 01/07 PCXR 01/07 echo 01/07, cardiology consult The left ventricular systolic function is normal and the ejection fraction is within normal range. The Ejection Fraction is 60-65%. neurology consult, ct head NOTED 01/07 abd sono History of Present Illness History of Present Illness more clear mentally, up to chair, able to eat some some pain after eating, will given pain med x1, discussed with RN, cont TPBN Vitals Vitals Vital Signs Date Time Temp Pulse Resp B/P (MAP) Pulse Ox O2 Delivery O2 Flow Rate FiO2 01/12/19 08:12 96 Room Air 01/12/19 07:00 100.0 107 26 116/78 (91) 100.0 01/12/19 03:00 15.0 Physical Exam Physical Exam GENERAL: Alert, calm, jaundiced HEENT: Pupils equally round and reactive. Icterus. Oral cavity dry NECK: Supple. LUNGS: Decreased in bases HEART: S1 and S2 regular ABDOMEN: Mildly distended, soft, no grimace or guarding to palpation. Bowel sounds present. GENITOURINARY: Indwelling Galdamez in place. EXTREMITIES: No gross edema or cyanosis SKIN: Warm to touch. Multiple ecchymoses, especially lower extremities. Petechial-type rash arms/abdomen NEUROLOGIC: Alert, confused and follows simple commands RIJ -clean General: Alert, No acute distress Heart: Normal S1, Normal S2 Lungs: Other (decrease bs) Abdomen: Soft, No tenderness, Other (ND) Extremities: No cyanosis, Other (noted eccyhmosis, 2 PLUS pedal edema ) Skin: Other (Bruising and jaundice) Labs LABS Laboratory Tests Test 01/12/19 06:00 White Blood Count 15.9 x10^3/uL (4.0-11.0) Red Blood Count 2.32 x10^6/uL (4.30-5.70) Hemoglobin 8.2 g/dL (13.0-17.5) Hematocrit 25.1 % (39.0-53.0) Mean Corpuscular Volume 108 fL (79-100) Mean Corpuscular Hemoglobin 35 pg (25-35) Mean Corpuscular Hemoglobin Concent 33 g/dL (31-37) Red Cell Distribution Width 23.5 % (11.5-14.5) Platelet Count 56 x10^3/uL (140-400) Neutrophils (%) (Auto) 72 % (31-73) Lymphocytes (%) (Auto) 15 % (24-48) Monocytes (%) (Auto) 8 % (0-9) Eosinophils (%) (Auto) 5 % (0-3) Basophils (%) (Auto) 1 % (0-3) Neutrophils # (Auto) 11.4 x10^3/uL (1.8-7.7) Lymphocytes # (Auto) 2.3 x10^3/uL (1.0-4.8) Monocytes # (Auto) 1.3 x10^3/uL (0.0-1.1) Eosinophils # (Auto) 0.7 x10^3/uL (0.0-0.7) Basophils # (Auto) 0.2 x10^3/uL (0.0-0.2) Prothrombin Time 21.4 SEC (11.7-14.0) Prothromb Time International Ratio 1.9 (0.8-1.1) Sodium Level 142 mmol/L (136-145) Potassium Level 3.9 mmol/L (3.5-5.1) Chloride Level 111 mmol/L (98-107) Carbon Dioxide Level 22 mmol/L (21-32) Anion Gap 9 (6-14) Blood Urea Nitrogen 19 mg/dL (8-26) Creatinine 1.0 mg/dL (0.7-1.3) Estimated GFR (Cockcroft-Gault) 81.2 BUN/Creatinine Ratio 19 (6-20) Glucose Level 144 mg/dL (70-99) Calcium Level 7.7 mg/dL (8.5-10.1) Phosphorus Level 2.5 mg/dL (2.6-4.7) Magnesium Level 1.9 mg/dL (1.8-2.4) Total Bilirubin 20.5 mg/dL (0.2-1.0) Aspartate Amino Transf (AST/SGOT) 100 U/L (15-37) Alanine Aminotransferase (ALT/SGPT) 106 U/L (16-63) Alkaline Phosphatase 98 U/L (46-116) Total Protein 5.3 g/dL (6.4-8.2) Albumin 1.7 g/dL (3.4-5.0) Albumin/Globulin Ratio 0.5 (1.0-1.7) Assessment and Plan Assessmemt and Plan Problems Medical Problems: (1) Alcoholic liver disease Status: Acute (2) Cholelithiasis Status: Acute (3) Colitis Status: Acute (4) Jaundice Status: Acute (5) Pancreatitis Status: Acute (6) Thrombocytopenia Status: Acute Comment Review of Relevant I have reviewed the following items pierre (where applicable) has been applied. Labs Laboratory Tests Test 01/10/19 11:00 01/10/19 17:55 01/11/19 05:50 01/12/19 06:00 Urine Osmolality 819 mOsmol/kg (.) Urine Sodium <60 mmol/L (Not Estab.) Urine Potassium 96.7 mmol/L (Not Estab.) Urine Chloride <60 mmol/L (Not Estab.) Sodium Level 159 mmol/L (136-145) 151 mmol/L (136-145) 142 mmol/L (136-145) Potassium Level 4.1 mmol/L (3.5-5.1) 4.1 mmol/L (3.5-5.1) 3.9 mmol/L (3.5-5.1) Chloride Level 124 mmol/L (98-107) 121 mmol/L (98-107) 111 mmol/L (98-107) Carbon Dioxide Level 24 mmol/L (21-32) 25 mmol/L (21-32) 22 mmol/L (21-32) Anion Gap 11 (6-14) 5 (6-14) 9 (6-14) Blood Urea Nitrogen 16 mg/dL (8-26) 15 mg/dL (8-26) 19 mg/dL (8-26) Creatinine 0.9 mg/dL (0.7-1.3) 0.9 mg/dL (0.7-1.3) 1.0 mg/dL (0.7-1.3) Estimated GFR (Cockcroft-Gault) 91.7 91.7 81.2 Glucose Level 98 mg/dL (70-99) 145 mg/dL (70-99) 144 mg/dL (70-99) Calcium Level 7.4 mg/dL (8.5-10.1) 7.5 mg/dL (8.5-10.1) 7.7 mg/dL (8.5-10.1) Phosphorus Level 3.1 mg/dL (2.6-4.7) 2.8 mg/dL (2.6-4.7) 2.5 mg/dL (2.6-4.7) White Blood Count 12.1 x10^3/uL (4.0-11.0) 15.9 x10^3/uL (4.0-11.0) Red Blood Count 2.20 x10^6/uL (4.30-5.70) 2.32 x10^6/uL (4.30-5.70) Hemoglobin 7.9 g/dL (13.0-17.5) 8.2 g/dL (13.0-17.5) Hematocrit 23.3 % (39.0-53.0) 25.1 % (39.0-53.0) Mean Corpuscular Volume 106 fL (79-100) 108 fL (79-100) Mean Corpuscular Hemoglobin 36 pg (25-35) 35 pg (25-35) Mean Corpuscular Hemoglobin Concent 34 g/dL (31-37) 33 g/dL (31-37) Red Cell Distribution Width 25.0 % (11.5-14.5) 23.5 % (11.5-14.5) Platelet Count 68 x10^3/uL (140-400) 56 x10^3/uL (140-400) Neutrophils (%) (Auto) 65 % (31-73) 72 % (31-73) Lymphocytes (%) (Auto) 21 % (24-48) 15 % (24-48) Monocytes (%) (Auto) 8 % (0-9) 8 % (0-9) Eosinophils (%) (Auto) 5 % (0-3) 5 % (0-3) Basophils (%) (Auto) 1 % (0-3) 1 % (0-3) Neutrophils # (Auto) 7.9 x10^3/uL (1.8-7.7) 11.4 x10^3/uL (1.8-7.7) Lymphocytes # (Auto) 2.5 x10^3/uL (1.0-4.8) 2.3 x10^3/uL (1.0-4.8) Monocytes # (Auto) 1.0 x10^3/uL (0.0-1.1) 1.3 x10^3/uL (0.0-1.1) Eosinophils # (Auto) 0.6 x10^3/uL (0.0-0.7) 0.7 x10^3/uL (0.0-0.7) Basophils # (Auto) 0.1 x10^3/uL (0.0-0.2) 0.2 x10^3/uL (0.0-0.2) Prothrombin Time 23.0 SEC (11.7-14.0) 21.4 SEC (11.7-14.0) Prothromb Time International Ratio 2.1 (0.8-1.1) 1.9 (0.8-1.1) BUN/Creatinine Ratio 17 (6-20) 19 (6-20) Magnesium Level 1.9 mg/dL (1.8-2.4) 1.9 mg/dL (1.8-2.4) Total Bilirubin 17.2 mg/dL (0.2-1.0) 20.5 mg/dL (0.2-1.0) Aspartate Amino Transf (AST/SGOT) 122 U/L (15-37) 100 U/L (15-37) Alanine Aminotransferase (ALT/SGPT) 133 U/L (16-63) 106 U/L (16-63) Alkaline Phosphatase 88 U/L (46-116) 98 U/L (46-116) Total Protein 5.1 g/dL (6.4-8.2) 5.3 g/dL (6.4-8.2) Albumin 1.7 g/dL (3.4-5.0) 1.7 g/dL (3.4-5.0) Albumin/Globulin Ratio 0.5 (1.0-1.7) 0.5 (1.0-1.7) Laboratory Tests Test 01/12/19 06:00 White Blood Count 15.9 x10^3/uL (4.0-11.0) Red Blood Count 2.32 x10^6/uL (4.30-5.70) Hemoglobin 8.2 g/dL (13.0-17.5) Hematocrit 25.1 % (39.0-53.0) Mean Corpuscular Volume 108 fL (79-100) Mean Corpuscular Hemoglobin 35 pg (25-35) Mean Corpuscular Hemoglobin Concent 33 g/dL (31-37) Red Cell Distribution Width 23.5 % (11.5-14.5) Platelet Count 56 x10^3/uL (140-400) Neutrophils (%) (Auto) 72 % (31-73) Lymphocytes (%) (Auto) 15 % (24-48) Monocytes (%) (Auto) 8 % (0-9) Eosinophils (%) (Auto) 5 % (0-3) Basophils (%) (Auto) 1 % (0-3) Neutrophils # (Auto) 11.4 x10^3/uL (1.8-7.7) Lymphocytes # (Auto) 2.3 x10^3/uL (1.0-4.8) Monocytes # (Auto) 1.3 x10^3/uL (0.0-1.1) Eosinophils # (Auto) 0.7 x10^3/uL (0.0-0.7) Basophils # (Auto) 0.2 x10^3/uL (0.0-0.2) Prothrombin Time 21.4 SEC (11.7-14.0) Prothromb Time International Ratio 1.9 (0.8-1.1) Sodium Level 142 mmol/L (136-145) Potassium Level 3.9 mmol/L (3.5-5.1) Chloride Level 111 mmol/L (98-107) Carbon Dioxide Level 22 mmol/L (21-32) Anion Gap 9 (6-14) Blood Urea Nitrogen 19 mg/dL (8-26) Creatinine 1.0 mg/dL (0.7-1.3) Estimated GFR (Cockcroft-Gault) 81.2 BUN/Creatinine Ratio 19 (6-20) Glucose Level 144 mg/dL (70-99) Calcium Level 7.7 mg/dL (8.5-10.1) Phosphorus Level 2.5 mg/dL (2.6-4.7) Magnesium Level 1.9 mg/dL (1.8-2.4) Total Bilirubin 20.5 mg/dL (0.2-1.0) Aspartate Amino Transf (AST/SGOT) 100 U/L (15-37) Alanine Aminotransferase (ALT/SGPT) 106 U/L (16-63) Alkaline Phosphatase 98 U/L (46-116) Total Protein 5.3 g/dL (6.4-8.2) Albumin 1.7 g/dL (3.4-5.0) Albumin/Globulin Ratio 0.5 (1.0-1.7) Microbiology 01/06/19 Blood Culture - Final, Complete NO GROWTH AFTER 5 DAYS 01/04/19 Urine Culture - Final, Complete 01/04/19 Urine Culture Result 1 (DONALD) - Final, Complete Medications Current Medications Iohexol (Omnipaque 240 Mg/ml) 30 ml 1X ONCE PO Last administered on 01/04/19at 15:15; Start 01/04/19 at 15:15; Stop 01/04/19 at 15:17; Status DC Iohexol (Omnipaque 300 Mg/ml) 75 ml 1X ONCE IV Last administered on 01/04/19at 16:20; Start 01/04/19 at 15:15; Stop 01/04/19 at 15:17; Status DC Info (CONTRAST GIVEN -- Rx MONITORING) 1 each PRN DAILY PRN MC SEE COMMENTS; Start 01/04/19 at 15:30; Stop 01/06/19 at 15:29; Status DC Multivitamins 10 ml/Thiamine HCl 100 mg/Folic Acid 1 mg/Sodium Chloride 1,011.2 ml @ 100 mls/ hr DAILY IV Last administered on 01/08/19at 08:12; Start 01/04/19 at 18:00; Stop 01/08/19 at 19:07; Status DC Chlordiazepoxide (Librium) 50 mg PRN Q1HR PRN PO For CIWA 8-14 Last administered on 01/04/19at 18:17; Start 01/04/19 at 17:45 Chlordiazepoxide (Librium) 100 mg PRN Q1HR PRN PO For CIWA 15 or greater Last administered on 01/05/19at 06:27; Start 01/04/19 at 17:45 Lorazepam (Ativan) 4 mg PRN Q1HR PRN PO For CIWA 8-14 Last administered on 01/04/19at 18:17; Start 01/04/19 at 17:45; Stop 01/10/19 at 07:34; Status DC Lorazepam (Ativan) 8 mg PRN Q1HR PRN PO For CIWA 15 or greater; Start 01/04/19 at 17:45; Stop 01/10/19 at 07:34; Status DC Haloperidol Lactate (Haldol Inj) 5 mg PRN Q4HRS PRN IVP Hallucinatns,Confusn,Delirium; Start 01/04/19 at 17:45 Diphenhydramine HCl (Benadryl) 25 mg PRN Q15MIN PRN IVP EPS symptoms 2'Haldol admin; Start 01/04/19 at 17:45 Clonidine HCl (Catapres) 0.1 mg PRN Q1HR PRN PO SBP > 180 or DBP > 100, MRX3 Last administered on 01/08/19at 07:18; Start 01/04/19 at 17:45; Stop 01/08/19 at 08:58; Status DC Lorazepam (Ativan Inj) 2 mg PRN Q1HR PRN IV For CIWA 8-14 Last administered on 01/11/19at 22:50; Start 01/04/19 at 19:15 Lorazepam (Ativan Inj) 4 mg PRN Q1HR PRN IV For CIWA 15 or greater Last administered on 01/05/19at 06:28; Start 01/04/19 at 19:15 Lorazepam (Ativan Inj) 2 mg PRN Q15MIN PRN IV SEE COMMENTS; Start 01/04/19 at 19:15; Status UNV Lorazepam (Ativan Inj) 4 mg PRN Q15MIN PRN IV SEE COMMENTS; Start 01/04/19 at 19:15; Status UNV Ondansetron HCl (Zofran) 4 mg PRN Q6HRS PRN IV NAUSEA/VOMITING Last administered on 01/04/19at 19:34; Start 01/04/19 at 19:30 Pantoprazole Sodium (PROTONIX VIAL for IV PUSH) 40 mg DAILYAC IVP Last administered on 01/06/19at 10:36; Start 01/06/19 at 10:00; Stop 01/06/19 at 12:17; Status DC Phytonadione (Vitamin K Ampule) 10 mg 1X ONCE SQ Last administered on 01/06/19at 10:36; Start 01/06/19 at 10:15; Stop 01/06/19 at 10:16; Status DC Piperacillin Sod/ Tazobactam Sod (Zosyn Per Pharmacy) 1 each PRN DAILY PRN MC SEE COMMENTS; Start 01/06/19 at 10:30 Piperacillin Sod/ Tazobactam Sod 3.375 gm/Sodium Chloride 50 ml @ 100 mls/hr Q6HRS IV Last administered on 01/12/19at 06:22; Start 01/06/19 at 11:00 Lactulose (Lactulose) 30 gm Q6HRS NG Last administered on 01/09/19at 05:53; Start 01/06/19 at 12:00; Stop 01/09/19 at 10:51; Status DC Metronidazole 100 ml @ 100 mls/hr Q8HRS IV Last administered on 01/09/19at 05 :53; Start 01/06/19 at 14:00; Stop 01/09/19 at 07:19; Status DC Pantoprazole Sodium 80 mg/ Sodium Chloride 100 ml @ 10 mls/hr Q10H IV Last administered on 01/10/19at 02:31; Start 01/06/19 at 12:30; Stop 01/10/19 at 12:11; Status DC Octreotide Acetate 500 mcg/ Sodium Chloride 101 ml @ 0 mls/hr CONT PRN IV SEE I/O RECORD Last administered on 01/08/19at 06:08; Start 01/06/19 at 12:15; Stop 01/08/19 at 10:48; Status DC Norepinephrine Bitartrate 250 ml @ 14.235 mls/ hr CONT PRN IV SEE I/O RECORD; Start 01/06/19 at 20:15 Albumin Human 100 ml @ 100 mls/hr 1X ONCE IV Last administered on 01/06/19at 21:30; Start 01/06/19 at 20:15; Stop 01/06/19 at 21:14; Status DC Phytonadione (Vitamin K Ampule) 10 mg 1X ONCE SQ Last administered on 01/07/19at 13:04; Start 01/07/19 at 11:45; Stop 01/07/19 at 11:46; Status DC Albuterol/ Ipratropium (Duoneb) 3 ml RTQID NEB Last administered on 01/12/19at 08:12; Start 01/07/19 at 16:00 Sodium Chloride 1,000 ml @ 75 mls/hr [id number] IV Last administered on 01/08/19at 23:47; Start 01/08/19 at 06:00; Stop 01/09/19 at 10:19; Status DC Labetalol HCl (Normodyne Iv Push) 10 mg PRN Q4HRS PRN IVP HYPERTENSION; Start 01/08/19 at 09:00 Potassium Bicarbonate (Potassium Effervescent Tablet) 40 meq 1X ONCE PEG Last administered on 01/08/19at 12:24; Start 01/08/19 at 11:30; Stop 01/08/19 at 11:33; Status DC Potassium Bicarbonate (Potassium Effervescent Tablet) 40 meq 1X ONCE PEG Last administered on 01/08/19at 16:06; Start 01/08/19 at 16:00; Stop 01/08/19 at 16:01; Status DC Potassium Bicarbonate (Potassium Effervescent Tablet) 80 meq 1X ONCE PEG Last administered on 01/09/19at 06:58; Start 01/09/19 at 06:15; Stop 01/09/19 at 06:21; Status DC Artificial Tears (Artificial Tears) 1 drop PRN Q15MIN PRN OU DRY EYE Last administered on 01/09/19at 10:11; Start 01/09/19 at 10:00 Dextrose/Sodium Chloride 1,000 ml @ 75 mls/hr [id number] IV Last administered on 01/09/19at 11:03; Start 01/09/19 at 10:30; Stop 01/09/19 at 12:20; Status DC Potassium Chloride/Water 50 ml @ 50 mls/hr Q1H IV ; Start 01/09/19 at 10:30; Stop 01/09/19 at 12:29; Status UNV Potassium Chloride/Water 100 ml @ 100 mls/hr Q1H IV ; Start 01/09/19 at 11:00; Stop 01/09/19 at 11:00; Status DC Lactulose (Lactulose) 30 gm BID NG Last administered on 01/09/19at 20:52; Start 01/09/19 at 21:00; Stop 01/10/19 at 13:57; Status DC Dextrose 1,000 ml @ 100 mls/hr Q10H IV Last administered on 01/12/19at 08:54; Start 01/09/19 at 12:30 Info (Tpn Per Pharmacy) 1 each PRN DAILY PRN MC SEE COMMENTS Last administered on 01/11/19at 12:37; Start 01/09/19 at 15:15 Potassium Chloride 50 meq/ Potassium Phosphate 13.6 mmol/Magnesium Sulfate 10 meq/ Calcium Gluconate 10 meq/ Multivitamins 10 ml/Chromium/ Copper/Manganese/ Seleni/Zn 1 ml/ Total Parenteral Nutrition/Amino Acids/Dextrose/ Fat Emulsion Intravenous 1,512 ml @ 63 mls/hr TPN CONT IV Last administered on 01/09/19at 21:41; Start 01/09/19 at 22:00; Stop 01/10/19 at 21:59; Status DC Potassium Chloride/Water 50 ml @ 50 mls/hr Q1H IV Last administered on 01/09/19at 20:51; Start 01/09/19 at 18:00; Stop 01/09/19 at 21:59; Status DC Potassium Phosphate 13.6 mmol/Dextrose 254.5333 ml @ 62.646 m... 1X ONCE IV Last administered on 01/09/19at 21:49; Start 01/09/19 at 22:00; Stop 01/10/19 at 08:03; Status DC Potassium Chloride/Water 50 ml @ 50 mls/hr Q1H IV Last administered on 01/10/19at 11:41; Start 01/10/19 at 08:00; Stop 01/10/19 at 11:59; Status DC Sodium Phosphate 40 mmol/Dextrose 263.3333 ml @ 62.5 mls/hr 1X ONCE IV ; Start 01/10/19 at 08:00; Stop 01/10/19 at 08:49; Status DC Potassium Phosphate 12 mmol/ Sodium Chloride 254 ml @ 125 mls/hr Q2H IV Last administered on 01/10/19at 15:24; Start 01/10/19 at 08:00; Stop 01/10/19 at 11:59; Status DC Potassium Chloride 40 meq/ Potassium Acetate 40 meq/Potassium Phosphate 15 mmol/ Magnesium Sulfate 10 meq/Calcium Gluconate 10 meq/ Multivitamins 10 ml/Chromium/ Copper/Manganese/ Seleni/Zn 1 ml/ Total Parenteral Nutrition/Amino Aci ds/Dextrose/ Fat Emulsion Intravenous 1,512 ml @ 63 mls/hr TPN CONT IV Last administered on 01/10/19at 22:08; Start 01/10/19 at 22:00; Stop 01/11/19 at 21:59; Status DC Pantoprazole Sodium (PROTONIX VIAL for IV PUSH) 40 mg BIDAC IVP Last administered on 01/12/19at 08:54; Start 01/10/19 at 16:30 Sodium Chloride 250 ml @ 250 mls/hr 1X ONCE IV Last administered on 01/10/19at 19:30; Start 01/10/19 at 19:30; Stop 01/10/19 at 20:29; Status DC Lorazepam (Ativan Inj) 1 mg PRN Q6HRS PRN IV ANXIETY / AGITATION Last administered on 01/10/19at 23:23; Start 01/10/19 at 23:15 Potassium Chloride 40 meq/ Potassium Acetate 40 meq/Potassium Phosphate 15 mmol/ Magnesium Sulfate 10 meq/Calcium Gluconate 10 meq/ Multivitamins 10 ml/Chromium/ Copper/Manganese/ Seleni/Zn 1 ml/ Total Parenteral Nutrition/Amino Acids/Dextrose/ Fat Emulsion Intravenous 1,512 ml @ 63 mls/hr TPN CONT IV Last administered on 01/11/19at 21:34; Start 01/11/19 at 22:00; Stop 01/12/19 at 21:59 Active Scripts Active Reported Omeprazole 40 Mg Capsule. 1 Cap PO DAILY Vitals/I & O Vital Sign - Last 24 Hours 01/11/19 01/11/19 01/11/19 01/11/19 10:00 11:00 11:14 12:00 Pulse 97 97 Resp 29 29 B/P (MAP) 115/71 (86) 108/68 (81) Pulse Ox 97 97 97 O2 Delivery Room Air Room Air Room Air Room Air 01/11/19 01/11/19 01/11/19 01/11/19 12:00 13:00 14:00 15:00 Temp 100.1 100.1 Pulse 96 98 95 93 Resp 26 24 20 21 B/P (MAP) 115/62 (79) 106/67 (80) 117/67 (84) 112/70 (84) Pulse Ox 96 97 97 98 O2 Delivery Room Air Room Air Room Air Room Air 01/11/19 01/11/19 01/11/19 01/11/19 15:37 16:00 16:00 17:00 Temp 99.7 99.7 Pulse 94 100 Resp 22 20 B/P (MAP) 113/71 (85) 115/73 (87) Pulse Ox 98 96 97 O2 Delivery Room Air Room Air Room Air Room Air 01/11/19 01/11/19 01/11/19 01/11/19 18:00 19:00 20:00 21:00 Temp 98.8 98.8 Pulse 104 100 104 Resp 24 29 28 B/P (MAP) 118/77 (91) 110/74 (86) 118/62 (80) Pulse Ox 98 98 98 O2 Delivery Room Air Room Air Room Air Room Air 01/11/19 01/11/19 01/11/19 01/12/19 21:00 22:00 23:00 00:17 Temp 98.8 98.8 Pulse 108 108 108 Resp 30 31 32 B/P (MAP) 120/73 (89) 116/75 (89) 119/73 (88) Pulse Ox 97 98 97 O2 Delivery Room Air Room Air Room Air Room Air 01/12/19 01/12/19 01/12/19 01/12/19 00:22 01:00 01:36 02:00 Temp 100.5 100.2 100.2 100.5 100.2 100.2 Pulse 112 108 112 Resp 34 31 30 B/P (MAP) 112/85 (94) 120/73 (89) Pulse Ox 97 97 97 O2 Delivery Room Air Room Air Room Air 01/12/19 01/12/19 01/12/19 01/12/19 02:29 03:00 03:00 04:00 Temp 98.0 98.0 Pulse 112 112 108 Resp 31 32 B/P (MAP) 110/73 (85) 122/79 (93) 122/79 (93) 116/74 (88) Pulse Ox 97 97 97 O2 Delivery Room Air Room Air Room Air O2 Flow Rate 15.0 01/12/19 01/12/19 01/12/19 01/12/19 04:10 05:00 06:15 07:00 Temp 100.0 100.0 Pulse 106 106 107 Resp 27 27 26 B/P (MAP) 112/70 (84) 112/70 (84) 116/78 (91) Pulse Ox 96 96 96 O2 Delivery Room Air Room Air Room Air Room Air 01/12/19 01/12/19 07:40 08:12 Pulse Ox 96 O2 Delivery Room Air Room Air Intake and Output 01/11/19 01/11/19 01/12/19 14:59 22:59 06:59 Intake Total 490 ml 3673.5 ml 910 ml Output Total 460 ml 416 ml 360 ml Balance 30 ml 3257.5 ml 550 ml KINSEY FRANCO MD Jan 12, 2019 09:23
[2019-01-12] MEDS ORDERED: MORPHINE SULFATE 2 MG/ML VIAL. IV ONE (09:30)
--- NOTE | 2019-01-12 10:40 | PDOC ---
Renal-Progress Notes Subjective Notes Notes SITTING UP IN CHAIR History of Present Illness Hx of present illness SLOWLY IMPROVING Vitals Vitals Vital Signs Date Time Temp Pulse Resp B/P (MAP) Pulse Ox O2 Delivery O2 Flow Rate FiO2 01/12/19 10:00 110 24 114/71 (85) 97 Room Air 01/12/19 07:00 100.0 100.0 01/12/19 03:00 15.0 Weight Weight [ ] I.O. Intake and Output Intake and Output 01/12/19 06:59 Intake Total 5073.5 ml Output Total 1236 ml Balance 3837.5 ml Intake Oral 860 ml IV Total 4213.5 ml Output Urine Total 1136 ml Stool Total 100 ml Labs Labs Laboratory Tests Test 01/12/19 06:00 White Blood Count 15.9 x10^3/uL (4.0-11.0) Red Blood Count 2.32 x10^6/uL (4.30-5.70) Hemoglobin 8.2 g/dL (13.0-17.5) Hematocrit 25.1 % (39.0-53.0) Mean Corpuscular Volume 108 fL (79-100) Mean Corpuscular Hemoglobin 35 pg (25-35) Mean Corpuscular Hemoglobin Concent 33 g/dL (31-37) Red Cell Distribution Width 23.5 % (11.5-14.5) Platelet Count 56 x10^3/uL (140-400) Neutrophils (%) (Auto) 72 % (31-73) Lymphocytes (%) (Auto) 15 % (24-48) Monocytes (%) (Auto) 8 % (0-9) Eosinophils (%) (Auto) 5 % (0-3) Basophils (%) (Auto) 1 % (0-3) Neutrophils # (Auto) 11.4 x10^3/uL (1.8-7.7) Lymphocytes # (Auto) 2.3 x10^3/uL (1.0-4.8) Monocytes # (Auto) 1.3 x10^3/uL (0.0-1.1) Eosinophils # (Auto) 0.7 x10^3/uL (0.0-0.7) Basophils # (Auto) 0.2 x10^3/uL (0.0-0.2) Prothrombin Time 21.4 SEC (11.7-14.0) Prothromb Time International Ratio 1.9 (0.8-1.1) Sodium Level 142 mmol/L (136-145) Potassium Level 3.9 mmol/L (3.5-5.1) Chloride Level 111 mmol/L (98-107) Carbon Dioxide Level 22 mmol/L (21-32) Anion Gap 9 (6-14) Blood Urea Nitrogen 19 mg/dL (8-26) Creatinine 1.0 mg/dL (0.7-1.3) Estimated GFR (Cockcroft-Gault) 81.2 BUN/Creatinine Ratio 19 (6-20) Glucose Level 144 mg/dL (70-99) Calcium Level 7.7 mg/dL (8.5-10.1) Phosphorus Level 2.5 mg/dL (2.6-4.7) Magnesium Level 1.9 mg/dL (1.8-2.4) Total Bilirubin 20.5 mg/dL (0.2-1.0) Aspartate Amino Transf (AST/SGOT) 100 U/L (15-37) Alanine Aminotransferase (ALT/SGPT) 106 U/L (16-63) Alkaline Phosphatase 98 U/L (46-116) Total Protein 5.3 g/dL (6.4-8.2) Albumin 1.7 g/dL (3.4-5.0) Albumin/Globulin Ratio 0.5 (1.0-1.7) Micro Micro Microbiology 01/06/19 Blood Culture - Final, Complete NO GROWTH AFTER 5 DAYS 01/04/19 Urine Culture - Final, Complete 01/04/19 Urine Culture Result 1 (DONALD) - Final, Complete Review of Systems Constitutional: yes: other (CONFUSION PERSISTS) Physical Exam General Appearance: no apparent distress Skin: warm Respiratory: decreased breath sounds Heart: S1S2 Abdomen: soft, bowel sounds present Genitourinary: bladder flat, no mass Extremities: pulses present Neurology: alert Assessment Assessment IMP HYPERNATREMIA-IMPROVED ETOH RELATED HEPATIC ENCEPHALOPATHY-BETTER LIVER FAILURE AND RELATED COAGULOPATHY HYPOXIC RESP FAILURE-IMPROVE LACTIC ACIDOSIS-FROM LIVER AND TISSUE HYPOXIA-BETTER THROMBOCYTOPENIA SEPSIS WITH LEUCOCYTOSIS AND HYPOTENSION-BETTER PANCREATITIS MALNUTRITION HYPOPHOSPHATEMIA PLAN CONT TPN CONT FREE WATER ANTIBIOTICS PO PER GI TEAM-SOME ABD PAIN AFTER EATING THIS AM REPLACE PO4 MONITOR FOR ETOH WITHDRAWAL INCREASE ACTIVITY TOLERATED WILL FOLLOW DANNY GUILLEN MD Jan 12, 2019 10:40
[2019-01-12 11:15] LABS: % BANDS 4 % (0-9); % EOS 4 % (0-5); % LYMPHS 20 % (24-48); % METAS 1 % (0-0); % MONOS 9 % (0-10); % MYELOS 1 % (0-0); % SEGS 61 % (35-66)
[2019-01-12 11:18] LABS: ANISOCYTOSIS SLIGHT; PLT ESTIMATE DECREASED (ADEQUATE)
[2019-01-12] MEDS: POTASSIUM PHOSPHATE DIBASIC 13.6 MMOL in IV DEXTROSE 5% 100ML 100 ML IV SCH ×2 (11:30→13:22)
[2019-01-12] MEDS ORDERED: VANCOMYCIN 2 GM in IV NORMAL SALINE 500ML BAG 500 ML IV ONE (12:00)
--- NOTE | 2019-01-12 13:15 | NUR ---
pt sitting in reclining position in chair next to bed. pt denies any more abdominal pain. family has music playing in the room. pt needs total assistance to eat. encouraging pt to move hand and feet to strengthen. pt attempted to bring spoon and cup to lips but unable to make it to mouth. tpn and d5w fluids continued as per dr miles.
[2019-01-12] MEDS: TPN PER PHARMACY MC PRN (13:31)
--- NOTE | 2019-01-12 13:32 | NUR ---
Pharmacy TPN Dosing Note S: NILAM PIRES is a 43 year old M Currently receiving Central Continuous TPN started 01/09/19 B:Pertinent PMH: npo Height: 5 feet, 7 inches Weight: 84.150413 kg Current diet: Full liquid LABS: Sodium: 142 Potassium: 3.9 Chloride: 111 Calcium: 7.7 Corrected Calcium: 9.54 Magnesium: 1.9 CO2: 22 SCr: 1.0 Glucose: 144 Albumin: 1.7 AST: 100 ALT: 106 TPN FORMULA: TPN TYPE: Central Continuous AMINO ACIDS: 80 gm DEXTROSE: 250 gm LIPIDS: 20 gm SODIUM CHLORIDE: mEq SODIUM ACETATE: mEq SODIUM PHOSPHATE: mmol POTASSIUM CHLORIDE: 40 mEq POTASSIUM ACETATE: 40 mEq POTASSIUM PHOSPHATE: 15 mmol MAGNESIUM: 10 mEq CALCIUM: 10 mEq INSULIN: units MULTIPLE VITAMIN: 10 ml TRACE ELEMENTS: 1ml ml(s) TPN PLAN: No changes to TPN formula today. patient tolerated liq diet, cont tpn for another day. R: Continue TPN AT 63ML/HR Will monitor electrolytes, glucose, and tolerance to TPN. AGATHA JORGENSEN [facility], 01/12/19 [id number]
--- NOTE | 2019-01-12 15:58 | NUR ---
Pharmacy TPN Dosing Note S: NILAM PIRES is a 43 year old M Currently receiving Central Continuous TPN started 01/09/19 B:Pertinent PMH: npo Height: 5 feet, 7 inches Weight: 84.858926 kg Current diet: Full liquid LABS: Sodium: 142 Potassium: 3.9 Chloride: 111 Calcium: 7.7 Corrected Calcium: 9.54 Magnesium: 1.9 CO2: 22 SCr: 1.0 Glucose: 144 Albumin: 1.7 AST: 100 ALT: 106 TPN FORMULA: TPN TYPE: Central Continuous AMINO ACIDS: 80 gm DEXTROSE: 250 gm LIPIDS: 20 gm SODIUM CHLORIDE: mEq SODIUM ACETATE: mEq SODIUM PHOSPHATE: mmol POTASSIUM CHLORIDE: 40 mEq POTASSIUM ACETATE: 40 mEq POTASSIUM PHOSPHATE: 15 mmol MAGNESIUM: 10 mEq CALCIUM: 10 mEq INSULIN: units MULTIPLE VITAMIN: 10 ml TRACE ELEMENTS: 1ml ml(s) TPN PLAN: No changes to TPN formula today. patient tolerated liq diet, cont tpn for another day. R: Continue TPN AT 63ML/HR Will monitor electrolytes, glucose, and tolerance to TPN. AGATHA JORGENSEN [facility], 01/12/19 [id number]
--- NOTE | 2019-01-12 16:13 | PDOC ---
PROGRESS NOTES Assessment Assessment Metabolic encephalopathy. Toxic encephalopathy. Respiratory failure. Alcohol intoxication. Lactic acidosis. Hepatic Injury. Elevated ammonia level. Thrombocytopenia. Coagulopathy, elevated PT/INR related to hepatic disease likely. Cirrhosis. Colitis. HTN. Substances abuse, alcohol. RECOMMENDATIONS/PLAN: Continue Vit B1 100 mg daily. Treat medical and hematologic diseases. ID on team. Cancel EEG. HCT w/o contrast on 01/07/19: negative without ICH. HISTORY OF THE PRESENT ILLNESS: This is a 43-year-old male with history of alcohol abuse went unresponsive status. According to his family, he has a history of drinking alcohol heavily in the last 22 years, averaging 30-60 beers a day. Over the last year, he has been depressed, shaky and not well-coordinated with falls. He could not work regularly. He tried to quit drinking a few times but but failed maintain abstinence. He had nosebleeds, blood in urine and skin and soft tissue bruises. He has been unresponsiveness since here. His daughter says he has lost about 50 pounds in a span of 3 month period last year. 01/12/19: Gained consciousness, and encephalopathic much improved. PAST MEDICAL HISTORY: Depression, hypertension, GERD, panic attacks. PAST SURGICAL HISTORY: No significant past surgical history. SOCIAL HISTORY: The patient is and lives at home. Used to work at a [employer] shop and [employer]. He migrated to the [place] from [place] about 19 years ago. He has 2 daughters. Heavy alcohol drinking for > 15 years as he stated on 01/11/19. FAMILY HISTORY: Noncontributory. ALLERGIES: No known drug allergies. REVIEW OF SYSTEMS: Refer to PMH and PSH. Otherwise, all other review of systems limited as the patient is unresponsiveness. PHYSICAL EXAMINATION: General appearance is in subacute distress. HEENT: Normocephalic and nontraumatic. Eyes, nose, ears, and throat are unremarkable. Neck is supple. No lymphadenopathy. No crepitus. Cardiovascular: S1, S2, regular rate and rhythm. Pulmonary: On 02.. Abdomen: Bowel sounds are positive. Extremities: Bruises in extremities. No restriction of range of motion NEUROLOGICAL EXAMINATION: Awake. Able to understand some questions. Not oriented to time, place and person. PERRL. EOMI not elicited. Sclera jaundice. CN: no focal findings. Muscle tone: Decreased. Muscle strength: 4- DTR: 1 Plantar reflex: No response bilaterally Gait: not able to walk w/o assistance. Sensory exam: no abnormal findings. Not cerebellar signs elicited. F-T-N test not performed. Objective Objective Vital Signs Date Time Temp Pulse Resp B/P (MAP) Pulse Ox O2 Delivery O2 Flow Rate FiO2 01/12/19 15:46 Room Air 01/12/19 15:00 108 23 114/66 (82) 94 01/12/19 11:00 99.4 99.4 01/12/19 03:00 15.0 Intake and Output 01/12/19 07:00 Intake Total 5123.5 ml Output Total 1206 ml Balance 3917.5 ml Intake Oral 860 ml IV Total 4263.5 ml Output Urine Total 1106 ml Stool Total 100 ml Vitals Signs Vitals VS - Last 72 Hours, by Label Date Time Temp Pulse Resp B/P (MAP) Pulse Ox O2 Delivery O2 Flow Rate FiO2 01/12/19 15:46 Room Air 01/12/19 15:00 108 23 114/66 (82) 94 Room Air 01/12/19 14:00 108 23 104/75 (85) 94 Room Air 01/12/19 13:00 116 29 121/75 (90) 93 Room Air 01/12/19 12:00 Room Air 01/12/19 12:00 120 29 119/77 (91) 92 Room Air 01/12/19 11:55 Room Air 01/12/19 11:10 29 93 Room Air 01/12/19 11:00 99.4 107 24 105/70 (82) 93 Room Air 99.4 01/12/19 10:40 30 94 Room Air 01/12/19 10:00 110 24 114/71 (85) 97 Room Air 01/12/19 09:00 118 25 112/72 (85) 96 Room Air 01/12/19 08:12 96 Room Air 01/12/19 08:00 113 25 128/76 (93) 94 Room Air 01/12/19 07:40 Room Air 01/12/19 07:00 100.0 107 26 116/78 (91) 96 Room Air 100.0 01/12/19 06:15 106 27 112/70 (84) 96 Room Air 01/12/19 05:00 106 27 112/70 (84) 96 Room Air 01/12/19 04:10 Room Air 01/12/19 04:00 98.0 108 32 116/74 (88) 97 Room Air 98.0 01/12/19 03:00 112 31 122/79 (93) 97 Room Air 01/12/19 03:00 112 122/79 (93) 97 Room Air 15.0 01/12/19 02:29 110/73 (85) 01/12/19 02:00 100.2 112 30 97 Room Air 100.2 01/12/19 01:36 100.2 100.2 01/12/19 01:00 108 31 120/73 (89) 97 Room Air 01/12/19 00:22 100.5 112 34 112/85 (94) 97 Room Air 100.5 01/12/19 00:17 Room Air 01/11/19 23:00 98.8 108 32 119/73 (88) 97 Room Air 98.8 01/11/19 22:00 108 31 116/75 (89) 98 Room Air 01/11/19 21:00 108 30 120/73 (89) 97 Room Air 01/11/19 21:00 Room Air 01/11/19 20:00 98.8 104 28 118/62 (80) 98 Room Air 98.8 01/11/19 19:00 100 29 110/74 (86) 98 Room Air 01/11/19 18:00 104 24 118/77 (91) 98 Room Air 01/11/19 17:00 100 20 115/73 (87) 97 Room Air 01/11/19 16:00 99.7 94 22 113/71 (85) 96 Room Air 99.7 01/11/19 16:00 Room Air 01/11/19 15:37 98 Room Air 01/11/19 15:00 93 21 112/70 (84) 98 Room Air 01/11/19 14:00 95 20 117/67 (84) 97 Room Air 01/11/19 13:00 98 24 106/67 (80) 97 Room Air 01/11/19 12:00 100.1 96 26 115/62 (79) 96 Room Air 100.1 01/11/19 12:00 Room Air 01/11/19 11:14 97 Room Air 01/11/19 11:00 97 29 108/68 (81) 97 Room Air 01/11/19 10:00 97 29 115/71 (86) 97 Room Air 01/11/19 09:00 104 30 122/69 (86) 96 Room Air 01/11/19 08:00 98.7 96 22 120/86 (97) 97 Room Air 98.7 01/11/19 08:00 Room Air 01/11/19 07:58 98 Room Air 01/11/19 07:00 107 26 123/73 (90) 97 Room Air Laboratory Laboratory Laboratory Tests Test 01/12/19 06:00 White Blood Count 15.9 x10^3/uL (4.0-11.0) Red Blood Count 2.32 x10^6/uL (4.30-5.70) Hemoglobin 8.2 g/dL (13.0-17.5) Hematocrit 25.1 % (39.0-53.0) Mean Corpuscular Volume 108 fL (79-100) Mean Corpuscular Hemoglobin 35 pg (25-35) Mean Corpuscular Hemoglobin Concent 33 g/dL (31-37) Red Cell Distribution Width 23.5 % (11.5-14.5) Platelet Count 56 x10^3/uL (140-400) Neutrophils (%) (Auto) 72 % (31-73) Lymphocytes (%) (Auto) 15 % (24-48) Monocytes (%) (Auto) 8 % (0-9) Eosinophils (%) (Auto) 5 % (0-3) Basophils (%) (Auto) 1 % (0-3) Neutrophils # (Auto) 11.4 x10^3/uL (1.8-7.7) Lymphocytes # (Auto) 2.3 x10^3/uL (1.0-4.8) Monocytes # (Auto) 1.3 x10^3/uL (0.0-1.1) Eosinophils # (Auto) 0.7 x10^3/uL (0.0-0.7) Basophils # (Auto) 0.2 x10^3/uL (0.0-0.2) Segmented Neutrophils % 61 % (35-66) Band Neutrophils % 4 % (0-9) Lymphocytes % 20 % (24-48) Monocytes % 9 % (0-10) Eosinophils % 4 % (0-5) Metamyelocytes % 1 % (0-0) Myelocytes % 1 % (0-0) Platelet Estimate Decreased (ADEQUATE) Anisocytosis Slight Macrocytosis Slight Prothrombin Time 21.4 SEC (11.7-14.0) Prothromb Time International Ratio 1.9 (0.8-1.1) Sodium Level 142 mmol/L (136-145) Potassium Level 3.9 mmol/L (3.5-5.1) Chloride Level 111 mmol/L (98-107) Carbon Dioxide Level 22 mmol/L (21-32) Anion Gap 9 (6-14) Blood Urea Nitrogen 19 mg/dL (8-26) Creatinine 1.0 mg/dL (0.7-1.3) Estimated GFR (Cockcroft-Gault) 81.2 BUN/Creatinine Ratio 19 (6-20) Glucose Level 144 mg/dL (70-99) Calcium Level 7.7 mg/dL (8.5-10.1) Phosphorus Level 2.5 mg/dL (2.6-4.7) Magnesium Level 1.9 mg/dL (1.8-2.4) Total Bilirubin 20.5 mg/dL (0.2-1.0) Aspartate Amino Transf (AST/SGOT) 100 U/L (15-37) Alanine Aminotransferase (ALT/SGPT) 106 U/L (16-63) Alkaline Phosphatase 98 U/L (46-116) Total Protein 5.3 g/dL (6.4-8.2) Albumin 1.7 g/dL (3.4-5.0) Albumin/Globulin Ratio 0.5 (1.0-1.7) Microbiology 01/06/19 Blood Culture - Final, Complete NO GROWTH AFTER 5 DAYS 01/04/19 Urine Culture - Final, Complete 01/04/19 Urine Culture Result 1 (DONALD) - Final, Complete Medication Medications Current Medications Morphine Sulfate (Morphine Sulfate) 2 mg 1X ONCE IV Last administered on 01/12/19at 10:40; Start 01/12/19 at 09:30; Stop 01/12/19 at 09:31; Status DC Potassium Chloride 40 meq/ Potassium Acetate 40 meq/Potassium Phosphate 15 mmol/ Magnesium Sulfate 10 meq/Calcium Gluconate 10 meq/ Multivitamins 10 ml/Chromium/ Copper/Manganese/ Seleni/Zn 1 ml/ Total Parenteral Nutrition/Amino Acids/Dextrose/ Fat Emulsion Intravenous 1,512 ml @ 63 mls/hr TPN CONT IV Last administered on 01/11/19at 21:34; Start 01/11/19 at 22:00; Stop 01/12/19 at 21:59 Potassium Chloride 40 meq/ Potassium Acetate 40 meq/Potassium Phosphate 15 mmol/ Magnesium Sulfate 10 meq/Calcium Gluconate 10 meq/ Multivitamins 10 ml/Chromium/ Copper/Manganese/ Seleni/Zn 1 ml/ Total Parenteral Nutrition/Amino Acids/Dextrose/ Fat Emulsion Intravenous 1,512 ml @ 63 mls/hr TPN CONT IV ; Start 01/12/19 at 22:00; Stop 01/13/19 at 21:59 Potassium Phosphate 13.6 mmol/Dextrose 104.5333 ml @ 52.267 m... Q2H IV Last administered on 01/12/19at 13:22; Start 01/12/19 at 11:30; Stop 01/12/19 at 15:29; Status DC Vancomycin HCl (Vanco Per Pharmacy) 1 each PRN DAILY PRN MC SEE COMMENTS; Start 01/12/19 at 11:15 Vancomycin HCl 2 gm/Sodium Chloride 500 ml @ 250 mls/hr ONCE ONCE IV Last administered on 01/12/19at 13:22; Start 01/12/19 at 12:00; Stop 01/12/19 at 13:59; Status DC Comment Review of Relevant I have reviewed the following items pierre (where applicable) has been applied. MAGY BLUE MD Jan 12, 2019 16:13
[2019-01-12] MEDS ORDERED: [UNRECOGNIZED DRUG - OTHER] IV SCH ×10 (22:00)
[2019-01-12] MEDS ORDERED: DEXTROSE 70% IV SCH ×10 (22:00)
[2019-01-12] MEDS ORDERED: TOTAL PARENTERAL NUTRITION IV SCH ×10 (22:00)
[2019-01-12] MEDS ORDERED: AMINO ACID IV SCH ×10 (22:00)
[2019-01-13] VITALS (14 sets, daily range): BP systolic 93–143; BP diastolic 59–80
[2019-01-13] MEDS: PIPERACILLIN/TAZOBACTAM 3.375 GM in IV NORMAL SALINE 50ML 50 ML IV SCH ×4 (01:09→18:03)
[2019-01-13] MEDS: IV DEXTROSE 5% 1,000 ML IV SCH ×2 (06:24→11:22)
[2019-01-13 06:59] LABS: MAGNESIUM 2.2 mg/dL (1.8-2.4); PHOSPHORUS 3.2 mg/dL (2.6-4.7)
[2019-01-13 07:07] LABS: ALBUMIN 1.5 g/dL (3.4-5.0); ALBUMIN/GLOBULIN RATIO 0.4 (1.0-1.7); CALCIUM 7.6 mg/dL (8.5-10.1); GFR 81.2; POTASSIUM 4.1 mmol/L (3.5-5.1); TOTAL BILIRUBIN 21.9 mg/dL (0.2-1.0)
[2019-01-13 07:22] LABS: PROTHROMBIN TIME PATIENT 21.9 SEC (11.7-14.0)
[2019-01-13] MEDS: IPRATRPIUM/ALBUTEROL 0.5/2.5MG 3 ML NEBU. NEB SCH ×4 (07:55→20:00)
[2019-01-13] MEDS ORDERED: VANCOMYCIN 2 GM in IV NORMAL SALINE 500ML BAG 500 ML IV ONE (08:00)
[2019-01-13] MEDS: PANTOPRAZOLE IV PUSH 40 MG VIAL. IVP SCH ×2 (08:27→18:03)
[2019-01-13] MEDS: VANCOMYCIN PER PHARMACY MC PRN (09:11)
--- NOTE | 2019-01-13 09:12 | NUR ---
Pharmacy Vancomycin Dosing Note S:Consulted to monitor and dose vancomycin started 01/13/19. O:NILAM PIRES is a 43 year old M with Empiric . Height: 5 feet, 7 inches Weight: 83.191306 kg [place] Body Weight: 66.10 Adjusted Body Weight: 71.06 Dosing Weight: Actual Other Antibiotics: ZOSYN LABS: Last BUN: 27 Last Creatinine: 1.0 Creatinine Clearance: 97 mL/min Last WBC: 15.9 Last Procalcitonin: Tmax (past 24 hours): 100.1 Microbiology: BC/UR NEG I/O: 5739/480 Drug Levels: Last level: on at Last dose given 01/13/19 at 0830 Vancomycin Dosing: Loading Dose: 2000 mg x1 Dosing Weight: Actual Target Trough: 15-20 A: Based on: WEIGHT AND RENAL FUNCTION, VANCOMYCIN 2GM IV BOLUS GIVEN, P: 1. START Vancomycin 1250 mg IV q12h TONIGHT 2. Follow up Trough level on 01/14/19 at 2030 3. Pharmacy will continue to monitor, follow and adjust therapy as needed. AGATHA JORGENSEN RPH, 01/13/19 [id number]
--- NOTE | 2019-01-13 09:20 | PDOC ---
PULMONARY PROGRESS NOTES Subjective off BIPAP, fully awake. denies dyspnea, although not completely oriented. good oxygen saturation on room air Vitals Vital Signs Date Time Temp Pulse Resp B/P (MAP) Pulse Ox O2 Delivery O2 Flow Rate FiO2 01/13/19 08:00 107 24 93/69 (77) 94 Room Air 01/13/19 07:00 99.5 99.5 General: Alert, No acute distress Lungs: Other (decrease bs) Cardiovascular: S1 Abdomen: Soft Extremities: Other (1+edema) Labs Laboratory Tests Test 01/12/19 06:00 01/13/19 06:30 White Blood Count 15.9 x10^3/uL (4.0-11.0) Red Blood Count 2.32 x10^6/uL (4.30-5.70) Hemoglobin 8.2 g/dL (13.0-17.5) Hematocrit 25.1 % (39.0-53.0) Mean Corpuscular Volume 108 fL (79-100) Mean Corpuscular Hemoglobin 35 pg (25-35) Mean Corpuscular Hemoglobin Concent 33 g/dL (31-37) Red Cell Distribution Width 23.5 % (11.5-14.5) Platelet Count 56 x10^3/uL (140-400) Neutrophils (%) (Auto) 72 % (31-73) Lymphocytes (%) (Auto) 15 % (24-48) Monocytes (%) (Auto) 8 % (0-9) Eosinophils (%) (Auto) 5 % (0-3) Basophils (%) (Auto) 1 % (0-3) Neutrophils # (Auto) 11.4 x10^3/uL (1.8-7.7) Lymphocytes # (Auto) 2.3 x10^3/uL (1.0-4.8) Monocytes # (Auto) 1.3 x10^3/uL (0.0-1.1) Eosinophils # (Auto) 0.7 x10^3/uL (0.0-0.7) Basophils # (Auto) 0.2 x10^3/uL (0.0-0.2) Segmented Neutrophils % 61 % (35-66) Band Neutrophils % 4 % (0-9) Lymphocytes % 20 % (24-48) Monocytes % 9 % (0-10) Eosinophils % 4 % (0-5) Metamyelocytes % 1 % (0-0) Myelocytes % 1 % (0-0) Platelet Estimate Decreased (ADEQUATE) Anisocytosis Slight Macrocytosis Slight Prothrombin Time 21.4 SEC (11.7-14.0) 21.9 SEC (11.7-14.0) Prothromb Time International Ratio 1.9 (0.8-1.1) 1.9 (0.8-1.1) Sodium Level 142 mmol/L (136-145) 135 mmol/L (136-145) Potassium Level 3.9 mmol/L (3.5-5.1) 4.1 mmol/L (3.5-5.1) Chloride Level 111 mmol/L (98-107) 106 mmol/L (98-107) Carbon Dioxide Level 22 mmol/L (21-32) 19 mmol/L (21-32) Anion Gap 9 (6-14) 10 (6-14) Blood Urea Nitrogen 19 mg/dL (8-26) 27 mg/dL (8-26) Creatinine 1.0 mg/dL (0.7-1.3) 1.0 mg/dL (0.7-1.3) Estimated GFR (Cockcroft-Gault) 81.2 81.2 BUN/Creatinine Ratio 19 (6-20) 27 (6-20) Glucose Level 144 mg/dL (70-99) 138 mg/dL (70-99) Calcium Level 7.7 mg/dL (8.5-10.1) 7.6 mg/dL (8.5-10.1) Phosphorus Level 2.5 mg/dL (2.6-4.7) 3.2 mg/dL (2.6-4.7) Magnesium Level 1.9 mg/dL (1.8-2.4) 2.2 mg/dL (1.8-2.4) Total Bilirubin 20.5 mg/dL (0.2-1.0) 21.9 mg/dL (0.2-1.0) Aspartate Amino Transf (AST/SGOT) 100 U/L (15-37) 98 U/L (15-37) Alanine Aminotransferase (ALT/SGPT) 106 U/L (16-63) 91 U/L (16-63) Alkaline Phosphatase 98 U/L (46-116) 101 U/L (46-116) Total Protein 5.3 g/dL (6.4-8.2) 5.0 g/dL (6.4-8.2) Albumin 1.7 g/dL (3.4-5.0) 1.5 g/dL (3.4-5.0) Albumin/Globulin Ratio 0.5 (1.0-1.7) 0.4 (1.0-1.7) Laboratory Tests Test 01/13/19 06:30 Prothrombin Time 21.9 SEC (11.7-14.0) Prothromb Time International Ratio 1.9 (0.8-1.1) Sodium Level 135 mmol/L (136-145) Potassium Level 4.1 mmol/L (3.5-5.1) Chloride Level 106 mmol/L (98-107) Carbon Dioxide Level 19 mmol/L (21-32) Anion Gap 10 (6-14) Blood Urea Nitrogen 27 mg/dL (8-26) Creatinine 1.0 mg/dL (0.7-1.3) Estimated GFR (Cockcroft-Gault) 81.2 BUN/Creatinine Ratio 27 (6-20) Glucose Level 138 mg/dL (70-99) Calcium Level 7.6 mg/dL (8.5-10.1) Phosphorus Level 3.2 mg/dL (2.6-4.7) Magnesium Level 2.2 mg/dL (1.8-2.4) Total Bilirubin 21.9 mg/dL (0.2-1.0) Aspartate Amino Transf (AST/SGOT) 98 U/L (15-37) Alanine Aminotransferase (ALT/SGPT) 91 U/L (16-63) Alkaline Phosphatase 101 U/L (46-116) Total Protein 5.0 g/dL (6.4-8.2) Albumin 1.5 g/dL (3.4-5.0) Albumin/Globulin Ratio 0.4 (1.0-1.7) Medications Active Scripts Medications Dose Route/Sig Max Daily Dose Days Date Category Omeprazole 40 Mg Capsule.dr 1 Cap PO DAILY 01/04/19 Reported Impression . 1. Acute hypoxic respiratory failure secondary to multifactorial etiologies including acute hepatic encephalopathy, sepsis, suspected acute lung injury, risk for aspiration, and acute on chronic hepatic failure, resolved 2. Acute alcoholic hepatic encephalopathy. 3. Acute on chronic liver failure with increased bilirubin and transaminases. GI is following. 4. Marked lactic acidosis improved. Likely sepsis, but could be related to type B lactic acidosis from liver failure. 5. Coagulopathy secondary to liver failure. 6. Marked metabolic acidosis on ABGs related to lactic acidosis and hepatic failure. improved 7. hypernatremia, per renal Plan . 1. Discussed with RN. We will continue to observe and give O2 if needed, BiPap if needed, although I do not anticipate that 2. ABG adequate 3. Correction of metabolic acidosis. no further bicarbonate. 4. Continue broad-spectrum antibiotics. 5. Follow GI recommendation. 6. octreotide drip.per GI 7. DuoNeb. 8. Alcohol withdrawal precautions. 9. There is also concern for hepatic or colonic malignancy.GI following 10.Monitor Na, per renal 11.speech eval and if can eat PO, wean TPN D/W BELÉN HAINES MD Jan 13, 2019 09:20
--- NOTE | 2019-01-13 09:52 | PDOC ---
Renal-Progress Notes Subjective Notes Notes LESS CONFUSED History of Present Illness Hx of present illness STABLE Vitals Vitals Vital Signs Date Time Temp Pulse Resp B/P (MAP) Pulse Ox O2 Delivery O2 Flow Rate FiO2 01/13/19 08:00 107 24 93/69 (77) 94 Room Air 01/13/19 07:00 99.5 99.5 Weight Weight [ ] I.O. Intake and Output Intake and Output 01/13/19 06:59 Intake Total 5739.4 ml Output Total 1480 ml Balance 4259.4 ml Intake Oral 1800 ml IV Total 3939.4 ml Output Urine Total 1480 ml # Bowel Movements 2 Labs Labs Laboratory Tests Test 01/13/19 06:30 Prothrombin Time 21.9 SEC (11.7-14.0) Prothromb Time International Ratio 1.9 (0.8-1.1) Sodium Level 135 mmol/L (136-145) Potassium Level 4.1 mmol/L (3.5-5.1) Chloride Level 106 mmol/L (98-107) Carbon Dioxide Level 19 mmol/L (21-32) Anion Gap 10 (6-14) Blood Urea Nitrogen 27 mg/dL (8-26) Creatinine 1.0 mg/dL (0.7-1.3) Estimated GFR (Cockcroft-Gault) 81.2 BUN/Creatinine Ratio 27 (6-20) Glucose Level 138 mg/dL (70-99) Calcium Level 7.6 mg/dL (8.5-10.1) Phosphorus Level 3.2 mg/dL (2.6-4.7) Magnesium Level 2.2 mg/dL (1.8-2.4) Total Bilirubin 21.9 mg/dL (0.2-1.0) Aspartate Amino Transf (AST/SGOT) 98 U/L (15-37) Alanine Aminotransferase (ALT/SGPT) 91 U/L (16-63) Alkaline Phosphatase 101 U/L (46-116) Total Protein 5.0 g/dL (6.4-8.2) Albumin 1.5 g/dL (3.4-5.0) Albumin/Globulin Ratio 0.4 (1.0-1.7) Micro Micro Microbiology 01/06/19 Blood Culture - Final, Complete NO GROWTH AFTER 5 DAYS 01/04/19 Urine Culture - Final, Complete 01/04/19 Urine Culture Result 1 (DONALD) - Final, Complete Review of Systems Constitutional: yes: other (CONFUSION PERSISTS) Physical Exam General Appearance: no apparent distress Skin: warm Respiratory: decreased breath sounds Heart: S1S2 Abdomen: soft, bowel sounds present Genitourinary: bladder flat, no mass Extremities: pulses present Neurology: alert Assessment Assessment IMP HYPERNATREMIA-RESOLVED ETOH RELATED HEPATIC ENCEPHALOPATHY-BETTER LIVER FAILURE AND RELATED COAGULOPATHY HYPOXIC RESP FAILURE-IMPROVE LACTIC ACIDOSIS-FROM LIVER AND TISSUE HYPOXIA-BETTER THROMBOCYTOPENIA SEPSIS WITH LEUCOCYTOSIS AND HYPOTENSION-BETTER PANCREATITIS MALNUTRITION HYPOPHOSPHATEMIA-CORRECTED PLAN CONT TPN OFF FREE WATER ANTIBIOTICS PO PER GI TEAM-SOME ABD PAIN AFTER EATING THIS AM REPLACE PO4 NEEDED MONITOR FOR ETOH WITHDRAWAL INCREASE ACTIVITY TOLERATED WILL FOLLOW DANNY GUILLEN MD Jan 13, 2019 09:52
--- NOTE | 2019-01-13 09:53 | NUR ---
pt confused, oriented to self, hallucinating, delusional and more restless today. unable to reorient, pt becomes argumentive. Had pt sit on commode and pt had a large soft brown bowel movement. pt sitting in chair with assist x 2 to transfer. pt unable to feed himself. unable to coordinate hands to bring drink or food to mouth. total feed. pt does attempt, but becomes frustrated.
--- NOTE | 2019-01-13 10:16 | PDOC ---
Infectious Disease Note Subjective Subjective Low-grade fevers Tmax 100.1 Denies pain/upset stomach Not sleeping Confused, hallucinating and restless Eating, total feed Soft stools Vital Sign Vital Signs Vital Signs Date Time Temp Pulse Resp B/P (MAP) Pulse Ox O2 Delivery O2 Flow Rate FiO2 01/13/19 10:01 103 25 116/72 (87) 94 Room Air 01/13/19 07:00 99.5 99.5 Physical Exam PHYSICAL EXAM GENERAL: in chair, alert, calm, jaundiced HEENT: Pupils equally round and reactive. Icterus. Oral cavity dry NECK: Supple. LUNGS: Decreased in bases HEART: S1 and S2 regular ABDOMEN: Distended, soft, no grimace or guarding to palpation. Bowel sounds present. GENITOURINARY: Indwelling Galdamez in place. EXTREMITIES: No gross edema or cyanosis SKIN: Warm to touch. Multiple ecchymoses, especially lower extremities. Petechial-type rash arms/abdomen BERNA hose in place NEUROLOGIC: Alert, confused and follows simple commands RIJ -clean Labs Lab Laboratory Tests Test 01/13/19 06:30 Prothrombin Time 21.9 SEC (11.7-14.0) Prothromb Time International Ratio 1.9 (0.8-1.1) Sodium Level 135 mmol/L (136-145) Potassium Level 4.1 mmol/L (3.5-5.1) Chloride Level 106 mmol/L (98-107) Carbon Dioxide Level 19 mmol/L (21-32) Anion Gap 10 (6-14) Blood Urea Nitrogen 27 mg/dL (8-26) Creatinine 1.0 mg/dL (0.7-1.3) Estimated GFR (Cockcroft-Gault) 81.2 BUN/Creatinine Ratio 27 (6-20) Glucose Level 138 mg/dL (70-99) Calcium Level 7.6 mg/dL (8.5-10.1) Phosphorus Level 3.2 mg/dL (2.6-4.7) Magnesium Level 2.2 mg/dL (1.8-2.4) Total Bilirubin 21.9 mg/dL (0.2-1.0) Aspartate Amino Transf (AST/SGOT) 98 U/L (15-37) Alanine Aminotransferase (ALT/SGPT) 91 U/L (16-63) Alkaline Phosphatase 101 U/L (46-116) Total Protein 5.0 g/dL (6.4-8.2) Albumin 1.5 g/dL (3.4-5.0) Albumin/Globulin Ratio 0.4 (1.0-1.7) Micro Microbiology 01/06/19 Blood Culture - Final, Complete NO GROWTH AFTER 5 DAYS 01/04/19 Urine Culture - Final, Complete 01/04/19 Urine Culture Result 1 (DONALD) - Final, Complete Objective Assessment Fever Leukocytosis Thrombocytopenia - trending ? liver disease possible med Transaminitis - now on TPN Multi-Organ Failure -stable ? Sepsis w/ hypotension, lactic acidosis- all cults neg Alcoholic liver disease/failure with ascites and hepatic encephalopathy - better - CT head -neg Coagulopathy - S/p FFP and Vit K Pancreatitis, lipase >3400 - improved Hepatic mass Colitis Esophagitis Acute anemia s/p PRBCs Possible cholecystitis on U/S -Appreciate Gen Surg eval Hypernatremia - improved Plan Plan of Care Cont Zosyn Vanc added 01/12 Repeat BC 01/12 in process CBC in am ? F/u Liver mass per GI Continue to monitor DNR/DNI D/w nursing Poor prognosis Critically ill Pt seen and examined case discussed agree with above a /p NABIL MATHIS APRN Jan 13, 2019 10:16 ROOSEVELT WOODARD MD Jan 13, 2019 14:41
--- NOTE | 2019-01-13 12:00 | NUR ---
increase in ciwa. dr butler seen pt. order received to move pt to medical floor and have as a 1:1 observation to keep pt safe from self. pt given at 1130 haldol 5 mg as ordered on ciwa protocol and requested by dr Butler. pt now rates an 18 on ciwa. effects of haldol has just made pt more aggitated, incontinent of stool, unaware to keep fingers out of stool and more unstable on feet when transferring pt. pt refused lunch tray, but did drink juice and thickened water with total assistance.
--- NOTE | 2019-01-13 12:35 | PDOC ---
PROGRESS NOTES Chief Complaint Chief Complaint Sepsis w/ hypotension, lactic acidosis and fever severely encephalopathic TRIES TO OPEN EYES hypernatremia, hypokalemia Hemoglobin 8.3 post transfusion 01/09 INR has climbed to 2.7 moved ICU Ammonia levels 208 ON ADMIT I discussed nurse ID following [email or web address] pulm consulted vit k 10mg sq plus 2 units FFP 01/07 PCXR 01/07 echo 01/07, cardiology consult The left ventricular systolic function is normal and the ejection fraction is within normal range. The Ejection Fraction is 60-65%. neurology consult, ct head NOTED History of Present Illness History of Present Illness transfer out of ICU to floor with 1:1 obs, still agitated, but eating beter, will more clear mentally, up to chair, able to eat some some pain after eating, will given pain med x1, discussed with RN, stop TPN Vitals Vitals Vital Signs Date Time Temp Pulse Resp B/P (MAP) Pulse Ox O2 Delivery O2 Flow Rate FiO2 01/13/19 11:42 94 Room Air 01/13/19 11:14 98.5 105 30 112/71 (85) 98.5 Physical Exam Physical Exam GENERAL: in chair, alert, calm, jaundiced HEENT: Pupils equally round and reactive. Icterus. Oral cavity dry NECK: Supple. LUNGS: Decreased in bases HEART: S1 and S2 regular ABDOMEN: Distended, soft, no grimace or guarding to palpation. Bowel sounds present. GENITOURINARY: Indwelling Galdamez in place. EXTREMITIES: No gross edema or cyanosis SKIN: Warm to touch. Multiple ecchymoses, especially lower extremities. Petechial-type rash arms/abdomen BERNA hose in place NEUROLOGIC: Alert, confused and follows simple commands RIJ -clean General: Alert, Cooperative, No acute distress Heart: Normal S1, Normal S2 Lungs: Other (decrease bs) Abdomen: Soft, No tenderness, Other (ND) Extremities: No cyanosis, Other (noted eccyhmosis, 2 PLUS pedal edema ) Skin: Other (Bruising and jaundice) Labs LABS Laboratory Tests Test 01/13/19 06:30 Prothrombin Time 21.9 SEC (11.7-14.0) Prothromb Time International Ratio 1.9 (0.8-1.1) Sodium Level 135 mmol/L (136-145) Potassium Level 4.1 mmol/L (3.5-5.1) Chloride Level 106 mmol/L (98-107) Carbon Dioxide Level 19 mmol/L (21-32) Anion Gap 10 (6-14) Blood Urea Nitrogen 27 mg/dL (8-26) Creatinine 1.0 mg/dL (0.7-1.3) Estimated GFR (Cockcroft-Gault) 81.2 BUN/Creatinine Ratio 27 (6-20) Glucose Level 138 mg/dL (70-99) Calcium Level 7.6 mg/dL (8.5-10.1) Phosphorus Level 3.2 mg/dL (2.6-4.7) Magnesium Level 2.2 mg/dL (1.8-2.4) Total Bilirubin 21.9 mg/dL (0.2-1.0) Aspartate Amino Transf (AST/SGOT) 98 U/L (15-37) Alanine Aminotransferase (ALT/SGPT) 91 U/L (16-63) Alkaline Phosphatase 101 U/L (46-116) Total Protein 5.0 g/dL (6.4-8.2) Albumin 1.5 g/dL (3.4-5.0) Albumin/Globulin Ratio 0.4 (1.0-1.7) Review of Systems Review of Systems no n.v.d Assessment and Plan Assessmemt and Plan Problems Medical Problems: (1) Alcoholic liver disease Status: Acute (2) Cholelithiasis Status: Acute (3) Colitis Status: Acute (4) Jaundice Status: Acute (5) Pancreatitis Status: Acute (6) Thrombocytopenia Status: Acute Comment Review of Relevant I have reviewed the following items pierre (where applicable) has been applied. Labs Laboratory Tests Test 01/12/19 06:00 01/13/19 06:30 White Blood Count 15.9 x10^3/uL (4.0-11.0) Red Blood Count 2.32 x10^6/uL (4.30-5.70) Hemoglobin 8.2 g/dL (13.0-17.5) Hematocrit 25.1 % (39.0-53.0) Mean Corpuscular Volume 108 fL (79-100) Mean Corpuscular Hemoglobin 35 pg (25-35) Mean Corpuscular Hemoglobin Concent 33 g/dL (31-37) Red Cell Distribution Width 23.5 % (11.5-14.5) Platelet Count 56 x10^3/uL (140-400) Neutrophils (%) (Auto) 72 % (31-73) Lymphocytes (%) (Auto) 15 % (24-48) Monocytes (%) (Auto) 8 % (0-9) Eosinophils (%) (Auto) 5 % (0-3) Basophils (%) (Auto) 1 % (0-3) Neutrophils # (Auto) 11.4 x10^3/uL (1.8-7.7) Lymphocytes # (Auto) 2.3 x10^3/uL (1.0-4.8) Monocytes # (Auto) 1.3 x10^3/uL (0.0-1.1) Eosinophils # (Auto) 0.7 x10^3/uL (0.0-0.7) Basophils # (Auto) 0.2 x10^3/uL (0.0-0.2) Segmented Neutrophils % 61 % (35-66) Band Neutrophils % 4 % (0-9) Lymphocytes % 20 % (24-48) Monocytes % 9 % (0-10) Eosinophils % 4 % (0-5) Metamyelocytes % 1 % (0-0) Myelocytes % 1 % (0-0) Platelet Estimate Decreased (ADEQUATE) Anisocytosis Slight Macrocytosis Slight Prothrombin Time 21.4 SEC (11.7-14.0) 21.9 SEC (11.7-14.0) Prothromb Time International Ratio 1.9 (0.8-1.1) 1.9 (0.8-1.1) Sodium Level 142 mmol/L (136-145) 135 mmol/L (136-145) Potassium Level 3.9 mmol/L (3.5-5.1) 4.1 mmol/L (3.5-5.1) Chloride Level 111 mmol/L (98-107) 106 mmol/L (98-107) Carbon Dioxide Level 22 mmol/L (21-32) 19 mmol/L (21-32) Anion Gap 9 (6-14) 10 (6-14) Blood Urea Nitrogen 19 mg/dL (8-26) 27 mg/dL (8-26) Creatinine 1.0 mg/dL (0.7-1.3) 1.0 mg/dL (0.7-1.3) Estimated GFR (Cockcroft-Gault) 81.2 81.2 BUN/Creatinine Ratio 19 (6-20) 27 (6-20) Glucose Level 144 mg/dL (70-99) 138 mg/dL (70-99) Calcium Level 7.7 mg/dL (8.5-10.1) 7.6 mg/dL (8.5-10.1) Phosphorus Level 2.5 mg/dL (2.6-4.7) 3.2 mg/dL (2.6-4.7) Magnesium Level 1.9 mg/dL (1.8-2.4) 2.2 mg/dL (1.8-2.4) Total Bilirubin 20.5 mg/dL (0.2-1.0) 21.9 mg/dL (0.2-1.0) Aspartate Amino Transf (AST/SGOT) 100 U/L (15-37) 98 U/L (15-37) Alanine Aminotransferase (ALT/SGPT) 106 U/L (16-63) 91 U/L (16-63) Alkaline Phosphatase 98 U/L (46-116) 101 U/L (46-116) Total Protein 5.3 g/dL (6.4-8.2) 5.0 g/dL (6.4-8.2) Albumin 1.7 g/dL (3.4-5.0) 1.5 g/dL (3.4-5.0) Albumin/Globulin Ratio 0.5 (1.0-1.7) 0.4 (1.0-1.7) Laboratory Tests Test 01/13/19 06:30 Prothrombin Time 21.9 SEC (11.7-14.0) Prothromb Time International Ratio 1.9 (0.8-1.1) Sodium Level 135 mmol/L (136-145) Potassium Level 4.1 mmol/L (3.5-5.1) Chloride Level 106 mmol/L (98-107) Carbon Dioxide Level 19 mmol/L (21-32) Anion Gap 10 (6-14) Blood Urea Nitrogen 27 mg/dL (8-26) Creatinine 1.0 mg/dL (0.7-1.3) Estimated GFR (Cockcroft-Gault) 81.2 BUN/Creatinine Ratio 27 (6-20) Glucose Level 138 mg/dL (70-99) Calcium Level 7.6 mg/dL (8.5-10.1) Phosphorus Level 3.2 mg/dL (2.6-4.7) Magnesium Level 2.2 mg/dL (1.8-2.4) Total Bilirubin 21.9 mg/dL (0.2-1.0) Aspartate Amino Transf (AST/SGOT) 98 U/L (15-37) Alanine Aminotransferase (ALT/SGPT) 91 U/L (16-63) Alkaline Phosphatase 101 U/L (46-116) Total Protein 5.0 g/dL (6.4-8.2) Albumin 1.5 g/dL (3.4-5.0) Albumin/Globulin Ratio 0.4 (1.0-1.7) Microbiology 01/06/19 Blood Culture - Final, Complete NO GROWTH AFTER 5 DAYS 01/04/19 Urine Culture - Final, Complete 01/04/19 Urine Culture Result 1 (DONALD) - Final, Complete Medications Current Medications Iohexol (Omnipaque 240 Mg/ml) 30 ml 1X ONCE PO Last administered on 01/04/19at 15:15; Start 01/04/19 at 15:15; Stop 01/04/19 at 15:17; Status DC Iohexol (Omnipaque 300 Mg/ml) 75 ml 1X ONCE IV Last administered on 01/04/19at 16:20; Start 01/04/19 at 15:15; Stop 01/04/19 at 15:17; Status DC Info (CONTRAST GIVEN -- Rx MONITORING) 1 each PRN DAILY PRN MC SEE COMMENTS; Start 01/04/19 at 15:30; Stop 01/06/19 at 15:29; Status DC Multivitamins 10 ml/Thiamine HCl 100 mg/Folic Acid 1 mg/Sodium Chloride 1,011.2 ml @ 100 mls/ hr DAILY IV Last administered on 01/08/19at 08:12; Start 01/04/19 at 18:00; Stop 01/08/19 at 19:07; Status DC Chlordiazepoxide (Librium) 50 mg PRN Q1HR PRN PO For CIWA 8-14 Last admin istered on 01/04/19at 18:17; Start 01/04/19 at 17:45 Chlordiazepoxide (Librium) 100 mg PRN Q1HR PRN PO For CIWA 15 or greater Last administered on 01/05/19at 06:27; Start 01/04/19 at 17:45 Lorazepam (Ativan) 4 mg PRN Q1HR PRN PO For CIWA 8-14 Last administered on 01/04/19at 18:17; Start 01/04/19 at 17:45; Stop 01/10/19 at 07:34; Status DC Lorazepam (Ativan) 8 mg PRN Q1HR PRN PO For CIWA 15 or greater; Start 01/04/19 at 17:45; Stop 01/10/19 at 07:34; Status DC Haloperidol Lactate (Haldol Inj) 5 mg PRN Q4HRS PRN IVP Hallucinatns,Confusn,Delirium Last administered on 01/13/19at 11:22; Start 01/04/19 at 17:45 Diphenhydramine HCl (Benadryl) 25 mg PRN Q15MIN PRN IVP EPS symptoms 2'Haldol admin; Start 01/04/19 at 17:45 Clonidine HCl (Catapres) 0.1 mg PRN Q1HR PRN PO SBP > 180 or DBP > 100, MRX3 Last administered on 01/08/19at 07:18; Start 01/04/19 at 17:45; Stop 01/08/19 at 08:58; Status DC Lorazepam (Ativan Inj) 2 mg PRN Q1HR PRN IV For CIWA 8-14 Last administered on 01/11/19at 22:50; Start 01/04/19 at 19:15 Lorazepam (Ativan Inj) 4 mg PRN Q1HR PRN IV For CIWA 15 or greater Last administered on 01/05/19at 06:28; Start 01/04/19 at 19:15 Lorazepam (Ativan Inj) 2 mg PRN Q15MIN PRN IV SEE COMMENTS; Start 01/04/19 at 19:15; Status UNV Lorazepam (Ativan Inj) 4 mg PRN Q15MIN PRN IV SEE COMMENTS; Start 01/04/19 at 19:15; Status UNV Ondansetron HCl (Zofran) 4 mg PRN Q6HRS PRN IV NAUSEA/VOMITING Last administered on 01/04/19at 19:34; Start 01/04/19 at 19:30 Pantoprazole Sodium (PROTONIX VIAL for IV PUSH) 40 mg DAILYAC IVP Last administered on 01/06/19at 10:36; Start 01/06/19 at 10:00; Stop 01/06/19 at 12:17; Status DC Phytonadione (Vitamin K Ampule) 10 mg 1X ONCE SQ Last administered on 01/06/19at 10:36; Start 01/06/19 at 10:15; Stop 01/06/19 at 10:16; Status DC Piperacillin Sod/ Tazobactam Sod (Zosyn Per Pharmacy) 1 each PRN DAILY PRN MC SEE COMMENTS; Start 01/06/19 at 10:30 Piperacillin Sod/ Tazobactam Sod 3.375 gm/Sodium Chloride 50 ml @ 100 mls/hr Q6HRS IV Last administered on 01/13/19at 11:19; Start 01/06/19 at 11:00 Lactulose (Lactulose) 30 gm Q6HRS NG Last administered on 01/09/19at 05:53; Start 01/06/19 at 12:00; Stop 01/09/19 at 10:51; Status DC Metronidazole 100 ml @ 100 mls/hr Q8HRS IV Last administered on 01/09/19at 05:53; Start 01/06/19 at 14:00; Stop 01/09/19 at 07:19; Status DC Pantoprazole Sodium 80 mg/ Sodium Chloride 100 ml @ 10 mls/hr Q10H IV Last administered on 01/10/19at 02:31; Start 01/06/19 at 12:30; Stop 01/10/19 at 12:11; Status DC Octreotide Acetate 500 mcg/ Sodium Chloride 101 ml @ 0 mls/hr CONT PRN IV SEE I/O RECORD Last administered on 01/08/19at 06:08; Start 01/06/19 at 12:15; Stop 01/08/19 at 10:48; Status DC Norepinephrine Bitartrate 250 ml @ 14.235 mls/ hr CONT PRN IV SEE I/O RECORD; Start 01/06/19 at 20:15 Albumin Human 100 ml @ 100 mls/hr 1X ONCE IV Last administered on 01/06/19at 21:30; Start 01/06/19 at 20:15; Stop 01/06/19 at 21:14; Status DC Phytonadione (Vitamin K Ampule) 10 mg 1X ONCE SQ Last administered on 01/07/19at 13:04; Start 01/07/19 at 11:45; Stop 01/07/19 at 11:46; Status DC Albuterol/ Ipratropium (Duoneb) 3 ml RTQID NEB Last administered on 01/13/19at 11:41; Start 01/07/19 at 16:00 Sodium Chloride 1,000 ml @ 75 mls/hr [id number] IV Last administered on 01/08/19at 23:47; Start 01/08/19 at 06:00; Stop 01/09/19 at 10:19; Status DC Labetalol HCl (Normodyne Iv Push) 10 mg PRN Q4HRS PRN IVP HYPERTENSION; Start 01/08/19 at 09:00 Potassium Bicarbonate (Potassium Effervescent Tablet) 40 meq 1X ONCE PEG Last administered on 01/08/19at 12:24; Start 01/08/19 at 11:30; Stop 01/08/19 at 11:33; Status DC Potassium Bicarbonate (Potassium Effervescent Tablet) 40 meq 1X ONCE PEG Last administered on 01/08/19at 16:06; Start 01/08/19 at 16:00; Stop 01/08/19 at 16:01; Status DC Potassium Bicarbonate (Potassium Effervescent Tablet) 80 meq 1X ONCE PEG Last administered on 01/09/19at 06:58; Start 01/09/19 at 06:15; Stop 01/09/19 at 06:21; Status DC Artificial Tears (Artificial Tears) 1 drop PRN Q15MIN PRN OU DRY EYE Last administered on 01/09/19at 10:11; Start 01/09/19 at 10:00 Dextrose/Sodium Chloride 1,000 ml @ 75 mls/hr [id number] IV Last administered on 01/09/19at 11:03; Start 01/09/19 at 10:30; Stop 01/09/19 at 12:20; Status DC Potassium Chloride/Water 50 ml @ 50 mls/hr Q1H IV ; Start 01/09/19 at 10:30; Stop 01/09/19 at 12:29; Status UNV Potassium Chloride/Water 100 ml @ 100 mls/hr Q1H IV ; Start 01/09/19 at 11:00; Stop 01/09/19 at 11:00; Status DC Lactulose (Lactulose) 30 gm BID NG Last administered on 01/09/19at 20:52; Start 01/09/19 at 21:00; Stop 01/10/19 at 13:57; Status DC Dextrose 1,000 ml @ 100 mls/hr Q10H IV Last administered on 01/13/19at 11:22; Start 01/09/19 at 12:30 Info (Tpn Per Pharmacy) 1 each PRN DAILY PRN MC SEE COMMENTS Last administered on 01/12/19at 13:31; Start 01/09/19 at 15:15 Potassium Chloride 50 meq/ Potassium Phosphate 13.6 mmol/Magnesium Sulfate 10 meq/ Calcium Gluconate 10 meq/ Multivitamins 10 ml/Chromium/ Copper/Manganese/ Seleni/Zn 1 ml/ Total Parenteral Nutrition/Amino Acids/Dextrose/ Fat Emulsion Intravenous 1,512 ml @ 63 mls/hr TPN CONT IV Last administered on 01/09/19at 21:41; Start 01/09/19 at 22:00; Stop 01/10/19 at 21:59; Status DC Potassium Chloride/Water 50 ml @ 50 mls/hr Q1H IV Last administered on 01/09/19at 20:51; Start 01/09/19 at 18:00; Stop 01/09/19 at 21:59; Status DC Potassium Phosphate 13.6 mmol/Dextrose 254.5333 ml @ 62.646 m... 1X ONCE IV Last administered on 01/09/19at 21:49; Start 01/09/19 at 22:00; Stop 01/10/19 at 08:03; Status DC Potassium Chloride/Water 50 ml @ 50 mls/hr Q1H IV Last administered on 01/10/19at 11:41; Start 01/10/19 at 08:00; Stop 01/10/19 at 11:59; Status DC Sodium Phosphate 40 mmol/Dextrose 263.3333 ml @ 62.5 mls/hr 1X ONCE IV ; Start 01/10/19 at 08:00; Stop 01/10/19 at 08:49; Status DC Potassium Phosphate 12 mmol/ Sodium Chloride 254 ml @ 125 mls/hr Q2H IV Last administered on 01/10/19at 15:24; Start 01/10/19 at 08:00; Stop 01/10/19 at 11:59; Status DC Potassium Chloride 40 meq/ Potassium Acetate 40 meq/Potassium Phosphate 15 mmol/ Magnesium Sulfate 10 meq/Calcium Gluconate 10 meq/ Multivitamins 10 ml/Chromium/ Copper/Manganese/ Seleni/Zn 1 ml/ Total Parenteral Nutrition/Amino Acids/Dextrose/ Fat Emulsion Intravenous 1,512 ml @ 63 mls/hr TPN CONT IV Last administered on 01/10/19at 22:08; Start 01/10/19 at 22:00; Stop 01/11/19 at 21:59; Status DC Pantoprazole Sodium (PROTONIX VIAL for IV PUSH) 40 mg BIDAC IVP Last administered on 01/13/19at 08:27; Start 01/10/19 at 16:30 Sodium Chloride 250 ml @ 250 mls/hr 1X ONCE IV Last administered on 01/10/19at 19:30; Start 01/10/19 at 19:30; Stop 01/10/19 at 20:29; Status DC Lorazepam (Ativan Inj) 1 mg PRN Q6HRS PRN IV ANXIETY / AGITATION Last administered on 01/10/19at 23:23; Start 01/10/19 at 23:15 Potassium Chloride 40 meq/ Potassium Acetate 40 meq/Potassium Phosphate 15 mmol/ Magnesium Sulfate 10 meq/Calcium Gluconate 10 meq/ Multivitamins 10 ml/Chromium/ Copper/Manganese/ Seleni/Zn 1 ml/ Total Parenteral Nutrition/Amino Acids/Dextrose/ Fat Emulsion Intravenous 1,512 ml @ 63 mls/hr TPN CONT IV Last administered on 01/11/19at 21:34; Start 01/11/19 at 22:00; Stop 01/12/19 at 21:59; Status DC Morphine Sulfate (Morphine Sulfate) 2 mg 1X ONCE IV Last administered on at 10:40; Start 01/12/19 at 09:30; Stop 01/12/19 at 09:31; Status DC Potassium Phosphate 13.6 mmol/Dextrose 104.5333 ml @ 52.267 m... Q2H IV Last administered on 01/12/19at 13:22; Start 01/12/19 at 11:30; Stop 01/12/19 at 15:29; Status DC Vancomycin HCl (Vanco Per Pharmacy) 1 each PRN DAILY PRN MC SEE COMMENTS Last administered on 01/13/19at 09:11; Start 01/12/19 at 11:15 Vancomycin HCl 2 gm/Sodium Chloride 500 ml @ 250 mls/hr ONCE ONCE IV Last administered on 01/12/19at 13:22; Start 01/12/19 at 12:00; Stop 01/12/19 at 13:59; Status DC Potassium Chloride 40 meq/ Potassium Acetate 40 meq/Potassium Phosphate 15 mmol/ Magnesium Sulfate 10 meq/Calcium Gluconate 10 meq/ Multivitamins 10 ml/Chromium/ Copper/Manganese/ Seleni/Zn 1 ml/ Total Parenteral Nutrition/Amino Acids/Dextrose/ Fat Emulsion Intravenous 1,512 ml @ 63 mls/hr TPN CONT IV Last administered on 01/12/19at 21:48; Start 01/12/19 at 22:00; Stop 01/13/19 at 21:59 Vancomycin HCl 2 gm/Sodium Chloride 500 ml @ 250 mls/hr 1X ONCE IV Last administered on 01/13/19at 08:27; Start 01/13/19 at 08:00; Stop 01/13/19 at 09:59; Status DC Vancomycin HCl 1.25 gm/Sodium Chloride 250 ml @ 167 mls/hr Q12H IV ; Start 01/13/19 at 21:00 Vancomycin HCl (Vancomycin Trough Level) 1 each 1X ONCE MC ; Start 01/14/19 at 20:30; Stop 01/14/19 at 20:31 Active Scripts Active Reported Omeprazole 40 Mg Capsule.dr Warren Cap PO DAILY Vitals/I & O Vital Sign - Last 24 Hours 01/12/19 01/12/19 01/12/19 01/12/19 13:00 14:00 15:00 15:46 Pulse 116 108 108 Resp 29 23 23 B/P (MAP) 121/75 (90) 104/75 (85) 114/66 (82) Pulse Ox 93 94 94 O2 Delivery Room Air Room Air Room Air Room Air 01/12/19 01/12/19 01/12/19 01/12/19 16:00 16:00 17:00 18:00 Temp 99.2 99.2 Pulse 110 113 110 Resp 23 23 23 B/P (MAP) 120/70 (87) 103/69 (80) 113/73 (86) Pulse Ox 93 93 93 O2 Delivery Room Air Room Air Room Air Room Air 01/12/19 01/12/19 01/12/19 01/12/19 19:00 20:00 20:19 21:00 Temp 100.1 100.1 Pulse 108 110 107 Resp 32 26 B/P (MAP) 116/70 (85) 114/77 (89) 98/65 (76) Pulse Ox 94 97 O2 Delivery Room Air Room Air Room Air Room Air 01/12/19 01/12/19 01/13/19 01/13/19 22:00 23:00 00:00 01:00 Temp 99.4 99.4 Pulse 112 109 111 108 Resp 27 B/P (MAP) 113/77 (89) 124/81 (95) 125/77 (93) 125/80 (95) Pulse Ox 95 O2 Delivery Room Air Room Air Room Air Room Air 01/13/19 01/13/19 01/13/19 01/13/19 02:00 03:00 04:00 05:00 Temp 100.0 100.0 Pulse 104 104 105 103 Resp 24 B/P (MAP) 108/72 (84) 124/74 (91) 116/75 (89) 117/76 (90) Pulse Ox 95 O2 Delivery Room Air Room Air Room Air Room Air 01/13/19 01/13/19 01/13/19 01/13/19 06:00 07:00 07:20 07:55 Temp 99.5 99.5 Pulse 103 104 Resp 22 B/P (MAP) 133/78 (96) 143/76 (98) Pulse Ox 94 94 O2 Delivery Room Air Room Air Room Air Room Air 01/13/19 01/13/19 01/13/19 01/13/19 08:00 09:00 10:01 11:14 Temp 98.5 98.5 Pulse 107 101 103 105 Resp 30 B/P (MAP) 93/69 (77) 111/71 (84) 116/72 (87) 112/71 (85) Pulse Ox 94 94 94 96 O2 Delivery Room Air Room Air Room Air Room Air 01/13/19 11:42 Pulse Ox 94 O2 Delivery Room Air Intake and Output 01/12/19 01/12/19 01/13/19 15:00 23:00 07:00 Intake Total 620 ml 2125 ml 2994.4 ml Output Total 205 ml 620 ml 695 ml Balance 415 ml 1505 ml 2299.4 ml KINSEY FRANCO MD Jan 13, 2019 12:35
--- NOTE | 2019-01-13 16:31 | PDOC ---
PROGRESS NOTES Assessment Assessment Metabolic encephalopathy. Toxic encephalopathy. Respiratory failure. Alcohol intoxication. Lactic acidosis. Hepatic Injury. Elevated ammonia level. Thrombocytopenia. Coagulopathy, elevated PT/INR related to hepatic disease likely. Cirrhosis. Colitis. HTN. Substances abuse, alcohol. RECOMMENDATIONS/PLAN: Continue Vit B1 100 mg daily. Treat medical and hematologic diseases. ID on team. Hold of EEG. HCT w/o contrast on 01/07/19: negative without ICH. HISTORY OF THE PRESENT ILLNESS: This is a 43-year-old male with history of alcohol abuse went unresponsive status. According to his family, he has a history of drinking alcohol heavily in the last 22 years, averaging 30-60 beers a day. Over the last year, he has been depressed, shaky and not well-coordinated with falls. He could not work regularly. He tried to quit drinking a few times but but failed maintain abstinence. He had nosebleeds, blood in urine and skin and soft tissue bruises. He has been unresponsiveness since here. His daughter says he has lost about 50 pounds in a span of 3 month period last year. 01/13/19: Gained consciousness, and encephalopathic much improved. PAST MEDICAL HISTORY: Depression, hypertension, GERD, panic attacks. PAST SURGICAL HISTORY: No significant past surgical history. SOCIAL HISTORY: The patient is and lives at home. Used to work at a [employer] shop and [employer]. He migrated to the [place] from [place] about 19 years ago. He has 2 daughters. Heavy alcohol drinking for > 15 years as he stated on 01/11/19. FAMILY HISTORY: Noncontributory. ALLERGIES: No known drug allergies. REVIEW OF SYSTEMS: Refer to PMH and PSH. Otherwise, all other review of systems limited as the patient is unresponsiveness. PHYSICAL EXAMINATION: General appearance is in subacute distress. HEENT: Normocephalic and nontraumatic. Eyes, nose, ears, and throat are unremarkable. Neck is supple. No lymphadenopathy. No crepitus. Cardiovascular: S1, S2, regular rate and rhythm. Pulmonary: On .. Abdomen: Bowel sounds are positive. Extremities: Bruises in extremities. No restriction of range of motion NEUROLOGICAL EXAMINATION: Sleeping but arousable. Able to understand some questions. Not oriented to time, but knew place and person. PERRL. EOMI not elicited. Sclera jaundice. CN: no focal findings. Muscle tone: Decreased. Muscle strength: 4 DTR: 1 Plantar reflex: No response bilaterally Gait: not able to walk w/o assistance. Sensory exam: no abnormal findings. Not cerebellar signs elicited. F-T-N test not performed. Objective Objective Vital Signs Date Time Temp Pulse Resp B/P (MAP) Pulse Ox O2 Delivery O2 Flow Rate FiO2 01/13/19 15:00 98.5 94 26 122/70 (87) 96 Room Air 98.5 Intake and Output 01/13/19 07:00 Intake Total 5739.4 ml Output Total 1520 ml Balance 4219.4 ml Intake Oral 1800 ml IV Total 3939.4 ml Output Urine Total 1520 ml # Bowel Movements 2 Vitals Signs Vitals VS - Last 72 Hours, by Label Date Time Temp Pulse Resp B/P (MAP) Pulse Ox O2 Delivery O2 Flow Rate FiO2 01/13/19 15:00 98.5 94 26 122/70 (87) 96 Room Air 98.5 01/13/19 11:42 94 Room Air 01/13/19 11:14 98.5 105 30 112/71 (85) 96 Room Air 98.5 01/13/19 10:01 103 25 116/72 (87) 94 Room Air 01/13/19 09:00 101 25 111/71 (84) 94 Room Air 01/13/19 08:00 107 24 93/69 (77) 94 Room Air 01/13/19 07:55 94 Room Air 01/13/19 07:20 Room Air 01/13/19 07:00 99.5 104 22 143/76 (98) 94 Room Air 99.5 01/13/19 06:00 103 24 133/78 (96) Room Air 01/13/19 05:00 103 24 117/76 (90) Room Air 01/13/19 04:00 100.0 105 23 116/75 (89) 95 Room Air 100.0 01/13/19 03:00 104 24 124/74 (91) Room Air 01/13/19 02:00 104 26 108/72 (84) Room Air 01/13/19 01:00 108 27 125/80 (95) Room Air 01/13/19 00:00 99.4 111 20 125/77 (93) 95 Room Air 99.4 01/12/19 23:00 109 23 124/81 (95) Room Air 01/12/19 22:00 112 25 113/77 (89) Room Air 01/12/19 21:00 107 26 98/65 (76) Room Air 01/12/19 20:19 97 Room Air 01/12/19 20:00 100.1 110 32 114/77 (89) 94 Room Air 100.1 01/12/19 19:00 108 25 116/70 (85) Room Air 01/12/19 18:00 110 23 113/73 (86) 93 Room Air 01/12/19 17:00 113 23 103/69 (80) 93 Room Air 01/12/19 16:00 Room Air 01/12/19 16:00 99.2 110 23 120/70 (87) 93 Room Air 99.2 01/12/19 15:46 Room Air 01/12/19 15:00 108 23 114/66 (82) 94 Room Air 01/12/19 14:00 108 23 104/75 (85) 94 Room Air 01/12/19 13:00 116 29 121/75 (90) 93 Room Air 01/12/19 12:00 Room Air 01/12/19 12:00 120 29 119/77 (91) 92 Room Air 01/12/19 11:55 Room Air 01/12/19 11:10 29 93 Room Air 01/12/19 11:00 99.4 107 24 105/70 (82) 93 Room Air 99.4 01/12/19 10:40 30 94 Room Air 01/12/19 10:00 110 24 114/71 (85) 97 Room Air 01/12/19 09:00 118 25 112/72 (85) 96 Room Air 01/12/19 08:12 96 Room Air 01/12/19 08:00 113 25 128/76 (93) 94 Room Air 01/12/19 07:40 Room Air 01/12/19 07:00 100.0 107 26 116/78 (91) 96 Room Air 100.0 Laboratory Laboratory Laboratory Tests Test 01/13/19 06:30 Prothrombin Time 21.9 SEC (11.7-14.0) Prothromb Time International Ratio 1.9 (0.8-1.1) Sodium Level 135 mmol/L (136-145) Potassium Level 4.1 mmol/L (3.5-5.1) Chloride Level 106 mmol/L (98-107) Carbon Dioxide Level 19 mmol/L (21-32) Anion Gap 10 (6-14) Blood Urea Nitrogen 27 mg/dL (8-26) Creatinine 1.0 mg/dL (0.7-1.3) Estimated GFR (Cockcroft-Gault) 81.2 BUN/Creatinine Ratio 27 (6-20) Glucose Level 138 mg/dL (70-99) Calcium Level 7.6 mg/dL (8.5-10.1) Phosphorus Level 3.2 mg/dL (2.6-4.7) Magnesium Level 2.2 mg/dL (1.8-2.4) Total Bilirubin 21.9 mg/dL (0.2-1.0) Aspartate Amino Transf (AST/SGOT) 98 U/L (15-37) Alanine Aminotransferase (ALT/SGPT) 91 U/L (16-63) Alkaline Phosphatase 101 U/L (46-116) Total Protein 5.0 g/dL (6.4-8.2) Albumin 1.5 g/dL (3.4-5.0) Albumin/Globulin Ratio 0.4 (1.0-1.7) Microbiology 01/12/19 Blood Culture - Preliminary, Resulted NO GROWTH AFTER 1 DAY 01/04/19 Urine Culture - Final, Complete 01/04/19 Urine Culture Result 1 (DONALD) - Final, Complete Medication Medications Current Medications Potassium Chloride 40 meq/ Potassium Acetate 40 meq/Potassium Phosphate 15 mmol/ Magnesium Sulfate 10 meq/Calcium Gluconate 10 meq/ Multivitamins 10 ml/Chromium/ Copper/Manganese/ Seleni/Zn 1 ml/ Total Parenteral Nutrition/Amino Acid s/Dextrose/ Fat Emulsion Intravenous 1,512 ml @ 63 mls/hr TPN CONT IV Last administered on 01/12/19at 21:48; Start 01/12/19 at 22:00; Stop 01/13/19 at 21:59 Vancomycin HCl (Vancomycin Trough Level) 1 each 1X ONCE MC ; Start 01/14/19 at 20:30; Stop 01/14/19 at 20:31 Vancomycin HCl 1.25 gm/Sodium Chloride 250 ml @ 167 mls/hr Q12H IV ; Start 01/13/19 at 21:00 Vancomycin HCl 2 gm/Sodium Chloride 500 ml @ 250 mls/hr 1X ONCE IV Last administered on 01/13/19at 08:27; Start 01/13/19 at 08:00; Stop 01/13/19 at 09:59; Status DC Comment Review of Relevant I have reviewed the following items pierre (where applicable) has been applied. MAGY BLUE MD Jan 13, 2019 16:31
[2019-01-13] MEDS: VANCOMYCIN 1.25 GM in IV NORMAL SALINE 250ML 250 ML IV SCH (20:56)
[2019-01-14] VITALS (7 sets, daily range): BP systolic 93–146; BP diastolic 56–82
[2019-01-14] MEDS: PIPERACILLIN/TAZOBACTAM 3.375 GM in IV NORMAL SALINE 50ML 50 ML IV SCH ×4 (00:04→18:00)
[2019-01-14 05:08] LABS: BASO # 0.2 x10^3/uL (0.0-0.2); BASO % 1 % (0-3); EOS # 0.3 x10^3/uL (0.0-0.7); EOS % 2 % (0-3); HEMATOCRIT 24.5 % (39.0-53.0); HEMOGLOBIN 8.2 g/dL (13.0-17.5); LYMPH # 1.6 x10^3/uL (1.0-4.8); LYMPH % 9 % (24-48); MEAN CORPUSCULAR HEMOGLOBIN 36 pg (25-35); MEAN CORPUSCULAR HGB CONC 33 g/dL (31-37); MEAN CORPUSCULAR VOLUME 108 fL (79-100); MONO # 1.3 x10^3/uL (0.0-1.1); MONO % 8 % (0-9); NEUT # 14.2 x10^3/uL (1.8-7.7); NEUT % 81 % (31-73); PLATELET COUNT 60 x10^3/uL (140-400); RED BLOOD COUNT 2.28 x10^6/uL (4.30-5.70); WHITE BLOOD COUNT 17.6 x10^3/uL (4.0-11.0)
[2019-01-14 05:21] LABS: PROTHROMBIN TIME PATIENT 20.8 SEC (11.7-14.0)
[2019-01-14 05:33] LABS: CALCIUM 7.2 mg/dL (8.5-10.1); CREATININE 1.4 mg/dL (0.7-1.3); GFR 55.1; MAGNESIUM 2.1 mg/dL (1.8-2.4); PHOSPHORUS 3.6 mg/dL (2.6-4.7)
--- NOTE | 2019-01-14 08:14 | PDOC ---
Infectious Disease Note Subjective: Subjective Pt says is doing ok has some nausea more when he eats a lot Denies pain still remains confused, hallucinating Eating, total feed Soft stools no fevers last 24 hrs t max 99.5 ROS: ROS Negative except for above. Vital Signs: Vital Signs Vital Signs Date Time Temp Pulse Resp B/P (MAP) Pulse Ox O2 Delivery O2 Flow Rate FiO2 01/14/19 04:00 98.8 88 21 96/59 (71) 94 Room Air 98.8 Physical Exam: PHYSICAL EXAM GENERAL: in bed alert, calm, jaundiced HEENT: Pupils equally round and reactive. Icterus. Oral cavity dry NECK: Supple. LUNGS: Decreased in bases HEART: S1 and S2 regular ABDOMEN: Distended, soft, no grimace or guarding to palpation. Bowel sounds present. GENITOURINARY: Indwelling Galdamez in place. EXTREMITIES: No gross edema or cyanosis SKIN: Warm to touch. Multiple ecchymoses, especially lower extremities. Petechial-type rash arms/abdomen BERNA hose in place NEUROLOGIC: Alert, confused and follows simple commands RIJ -clean Medications: Inpatient Meds: Current Medications Medications (Trade) Dose Ordered Sig/Amrik Start Time Stop Time Status Last Admin Dose Admin Albumin Human 100 ml @ 100 mls/hr 1X ONCE 01/06/19 20:15 01/06/19 21:14 DC 01/06/19 21:30 100 MLS/HR Albuterol/ Ipratropium (Duoneb) 3 ml RTQID 01/07/19 16:00 01/13/19 11:41 3 ML Artificial Tears (Artificial Tears) 1 drop PRN Q15MIN PRN 01/09/19 10:00 01/09/19 10:11 1 DROP Chlordiazepoxide (Librium) 100 mg PRN Q1HR PRN 01/04/19 17:45 01/05/19 06:27 100 MG Clonidine HCl (Catapres) 0.1 mg PRN Q1HR PRN 01/04/19 17:45 01/08/19 08:58 DC 01/08/19 07:18 0.1 MG Dextrose 1,000 ml @ 100 mls/hr Q10H 01/09/19 12:30 01/13/19 11:22 100 MLS/HR Dextrose/Sodium Chloride 1,000 ml @ 75 mls/hr [id number] 01/09/19 10:30 01/09/19 12:20 DC 01/09/19 11:03 75 MLS/HR Diphenhydramine HCl (Benadryl) 25 mg PRN Q15MIN PRN 01/04/19 17:45 Haloperidol Lactate (Haldol Inj) 5 mg PRN Q4HRS PRN 01/04/19 17:45 01/13/19 11:22 5 MG Info (CONTRAST GIVEN -- Rx MONITORING) 1 each PRN DAILY PRN 01/04/19 15:30 01/06/19 15:29 DC Info (Tpn Per Pharmacy) 1 each PRN DAILY PRN 01/09/19 15:15 01/13/19 13:27 DC 01/12/19 13:31 1 EACH Iohexol (Omnipaque 240 Mg/ml) 30 ml 1X ONCE 01/04/19 15:15 01/04/19 15:17 DC 01/04/19 15:15 30 ML Iohexol (Omnipaque 300 Mg/ml) 75 ml 1X ONCE 01/04/19 15:15 01/04/19 15:17 DC 01/04/19 16:20 75 ML Labetalol HCl (Normodyne Iv Push) 10 mg PRN Q4HRS PRN 01/08/19 09:00 Lactulose (Lactulose) 30 gm BID 01/09/19 21:00 01/10/19 13:57 DC 01/09/19 20:52 30 GM Lorazepam (Ativan Inj) 1 mg PRN Q6HRS PRN 01/10/19 23:15 01/10/19 23:23 1 MG Lorazepam (Ativan) 8 mg PRN Q1HR PRN 01/04/19 17:45 01/10/19 07:34 DC Metronidazole 100 ml @ 100 mls/hr Q8HRS 01/06/19 14:00 01/09/19 07:19 DC 01/09/19 05:53 100 MLS/HR Morphine Sulfate (Morphine Sulfate) 2 mg 1X ONCE 01/12/19 09:30 01/12/19 09:31 DC 01/12/19 10:40 2 MG Multivitamins 10 ml/Thiamine HCl 100 mg/Folic Acid 1 mg/Sodium Chloride 1,011.2 ml @ 100 mls/ hr DAILY 01/04/19 18:00 01/08/19 19:07 DC 01/08/19 08:12 100 MLS/HR Norepinephrine Bitartrate 250 ml @ 14.235 mls/ hr CONT PRN 01/06/19 20:15 01/13/19 13:28 DC Octreotide Acetate 500 mcg/ Sodium Chloride 101 ml @ 0 mls/hr CONT PRN 01/06/19 12:15 01/08/19 10:48 DC 01/08/19 06:08 5 MLS/HR Ondansetron HCl (Zofran) 4 mg PRN Q6HRS PRN 01/04/19 19:30 01/04/19 19:34 4 MG Pantoprazole Sodium (PROTONIX VIAL for IV PUSH) 40 mg BIDAC 01/10/19 16:30 01/13/19 18:03 40 MG Pantoprazole Sodium 80 mg/ Sodium Chloride 100 ml @ 10 mls/hr Q10H 01/06/19 12:30 01/10/19 12:11 DC 01/10/19 02:31 10 MLS/HR Phytonadione (Vitamin K Ampule) 10 mg 1X ONCE 01/07/19 11:45 01/07/19 11:46 DC 01/07/19 13:04 10 MG Piperacillin Sod/ Tazobactam Sod (Zosyn Per Pharmacy) 1 each PRN DAILY PRN 01/06/19 10:30 Piperacillin Sod/ Tazobactam Sod 3.375 gm/Sodium Chloride 50 ml @ 100 mls/hr Q6HRS 01/06/19 11:00 01/14/19 06:10 100 MLS/HR Potassium Bicarbonate (Potassium Effervescent Tablet) 80 meq 1X ONCE 01/09/19 06:15 01/09/19 06:21 DC 01/09/19 06:58 80 MEQ Potassium Chloride 40 meq/ Potassium Acetate 40 meq/Potassium Phosphate 15 mmol/ Magnesium Sulfate 10 meq/Calcium Gluconate 10 meq/ Multivitamins 10 ml/Chromium/ Copper/Manganese/ Seleni/Zn 1 ml/ Total Parenteral Nutrition/Amino Acids/Dextrose/ Fat Emulsion Intravenous 1,512 ml @ 63 mls/hr TPN CONT 01/12/19 22:00 01/13/19 21:59 DC 01/12/19 21:48 63 MLS/HR Potassium Chloride 50 meq/ Potassium Phosphate 13.6 mmol/Magnesium Sulfate 10 meq/ Calcium Gluconate 10 meq/ Multivitamins 10 ml/Chromium/ Copper/Manganese/ Seleni/Zn 1 ml/ Total Parenteral Nutrition/Amino Acids/Dextrose/ Fat Emulsion Intravenous 1,512 ml @ 63 mls/hr TPN CONT 01/09/19 22:00 01/10/19 21:59 DC 01/09/19 21:41 63 MLS/HR Potassium Chloride/Water 50 ml @ 50 mls/hr Q1H 01/10/19 08:00 01/10/19 11:59 DC 01/10/19 11:41 50 MLS/HR Potassium Phosphate 12 mmol/ Sodium Chloride 254 ml @ 125 mls/hr Q2H 01/10/19 08:00 01/10/19 11:59 DC 01/10/19 15:24 125 MLS/HR Potassium Phosphate 13.6 mmol/Dextrose 104.5333 ml @ 52.267 m... Q2H 01/12/19 11:30 01/12/19 15:29 DC 01/12/19 13:22 52.267 MLS/HR Sodium Chloride 250 ml @ 250 mls/hr 1X ONCE 01/10/19 19:30 01/10/19 20:29 DC 01/10/19 19:30 250 MLS/HR Sodium Phosphate 40 mmol/Dextrose 263.3333 ml @ 62.5 mls/hr 1X ONCE 01/10/19 08:00 01/10/19 08:49 DC Vancomycin HCl (Vanco Per Pharmacy) 1 each PRN DAILY PRN 01/12/19 11:15 01/13/19 09:11 1 EACH Vancomycin HCl (Vancomycin Trough Level) 1 each 1X ONCE 01/14/19 20:30 01/14/19 20:31 Vancomycin HCl 1.25 gm/Sodium Chloride 250 ml @ 167 mls/hr Q12H 01/13/19 21:00 01/13/19 20:56 167 MLS/HR Vancomycin HCl 2 gm/Sodium Chloride 500 ml @ 250 mls/hr 1X ONCE 01/13/19 08:00 01/13/19 09:59 DC 01/13/19 08:27 250 MLS/HR Labs: Lab Laboratory Tests Test 01/14/19 04:51 White Blood Count 17.6 x10^3/uL (4.0-11.0) Red Blood Count 2.28 x10^6/uL (4.30-5.70) Hemoglobin 8.2 g/dL (13.0-17.5) Hematocrit 24.5 % (39.0-53.0) Mean Corpuscular Volume 108 fL (79-100) Mean Corpuscular Hemoglobin 36 pg (25-35) Mean Corpuscular Hemoglobin Concent 33 g/dL (31-37) Red Cell Distribution Width 25.0 % (11.5-14.5) Platelet Count 60 x10^3/uL (140-400) Neutrophils (%) (Auto) 81 % (31-73) Lymphocytes (%) (Auto) 9 % (24-48) Monocytes (%) (Auto) 8 % (0-9) Eosinophils (%) (Auto) 2 % (0-3) Basophils (%) (Auto) 1 % (0-3) Neutrophils # (Auto) 14.2 x10^3/uL (1.8-7.7) Lymphocytes # (Auto) 1.6 x10^3/uL (1.0-4.8) Monocytes # (Auto) 1.3 x10^3/uL (0.0-1.1) Eosinophils # (Auto) 0.3 x10^3/uL (0.0-0.7) Basophils # (Auto) 0.2 x10^3/uL (0.0-0.2) Prothrombin Time 20.8 SEC (11.7-14.0) Prothromb Time International Ratio 1.8 (0.8-1.1) Sodium Level 132 mmol/L (136-145) Potassium Level 4.0 mmol/L (3.5-5.1) Chloride Level 103 mmol/L (98-107) Carbon Dioxide Level 19 mmol/L (21-32) Anion Gap 10 (6-14) Blood Urea Nitrogen 37 mg/dL (8-26) Creatinine 1.4 mg/dL (0.7-1.3) Estimated GFR (Cockcroft-Gault) 55.1 Glucose Level 101 mg/dL (70-99) Calcium Level 7.2 mg/dL (8.5-10.1) Phosphorus Level 3.6 mg/dL (2.6-4.7) Magnesium Level 2.1 mg/dL (1.8-2.4) Objective: Assessment: Fever pattern improving,cultures neg so far Leukocytosis ? reactive, could be from etoh hepatitis Thrombocytopenia - trending ? liver disease possible med Transaminitis - now on TPN Multi-Organ Failure -stable ? Sepsis w/ hypotension, lactic acidosis- all cults neg Alcoholic hepatitis , Hepatic failure with ascites and hepatic encephalopathy - better - CT head -neg Coagulopathy - S/p FFP and Vit K Pancreatitis, lipase >3400 - improved Hepatic mass Colitis Esophagitis Acute anemia s/p PRBCs Possible cholecystitis on U/S -Appreciate Gen Surg evaluation Hypernatremia - improved Mild renal insufficiency Plan: Plan of Care Cont Zosyn Vanc since 01/12 vanc trough pending from today monitor renal functions closely if trough high , dc vanc ,pharmacy to assist Repeat BC 01/12 neg so far ? F/u Liver mass per GI follow cbc Continue to monitor DNR/DNI D/w nursing Poor prognosis Critically ill ROOSEVELT WOODARD MD Jan 14, 2019 08:14
[2019-01-14] MEDS: VANCOMYCIN 1.25 GM in IV NORMAL SALINE 250ML 250 ML IV SCH (08:54)
[2019-01-14] MEDS: PANTOPRAZOLE IV PUSH 40 MG VIAL. IVP SCH (08:54)
[2019-01-14] MEDS: VANCOMYCIN PER PHARMACY MC PRN (09:03)
[2019-01-14] MEDS: IPRATRPIUM/ALBUTEROL 0.5/2.5MG 3 ML NEBU. NEB SCH ×4 (09:29→20:03)
--- NOTE | 2019-01-14 09:56 | PDOC ---
PULMONARY PROGRESS NOTES Subjective on RA.denies dyspnea, fully awake Vitals Vital Signs Date Time Temp Pulse Resp B/P (MAP) Pulse Ox O2 Delivery O2 Flow Rate FiO2 01/14/19 09:29 94 Room Air 01/14/19 04:00 98.8 88 21 96/59 (71) 98.8 General: Alert, No acute distress Lungs: Other (decrease bs) Cardiovascular: S1 Abdomen: Soft Extremities: Other (1+edema) Labs Laboratory Tests Test 01/13/19 06:30 01/14/19 04:51 Prothrombin Time 21.9 SEC (11.7-14.0) 20.8 SEC (11.7-14.0) Prothromb Time International Ratio 1.9 (0.8-1.1) 1.8 (0.8-1.1) Sodium Level 135 mmol/L (136-145) 132 mmol/L (136-145) Potassium Level 4.1 mmol/L (3.5-5.1) 4.0 mmol/L (3.5-5.1) Chloride Level 106 mmol/L (98-107) 103 mmol/L (98-107) Carbon Dioxide Level 19 mmol/L (21-32) 19 mmol/L (21-32) Anion Gap 10 (6-14) 10 (6-14) Blood Urea Nitrogen 27 mg/dL (8-26) 37 mg/dL (8-26) Creatinine 1.0 mg/dL (0.7-1.3) 1.4 mg/dL (0.7-1.3) Estimated GFR (Cockcroft-Gault) 81.2 55.1 BUN/Creatinine Ratio 27 (6-20) Glucose Level 138 mg/dL (70-99) 101 mg/dL (70-99) Calcium Level 7.6 mg/dL (8.5-10.1) 7.2 mg/dL (8.5-10.1) Phosphorus Level 3.2 mg/dL (2.6-4.7) 3.6 mg/dL (2.6-4.7) Magnesium Level 2.2 mg/dL (1.8-2.4) 2.1 mg/dL (1.8-2.4) Total Bilirubin 21.9 mg/dL (0.2-1.0) Aspartate Amino Transf (AST/SGOT) 98 U/L (15-37) Alanine Aminotransferase (ALT/SGPT) 91 U/L (16-63) Alkaline Phosphatase 101 U/L (46-116) Total Protein 5.0 g/dL (6.4-8.2) Albumin 1.5 g/dL (3.4-5.0) Albumin/Globulin Ratio 0.4 (1.0-1.7) White Blood Count 17.6 x10^3/uL (4.0-11.0) Red Blood Count 2.28 x10^6/uL (4.30-5.70) Hemoglobin 8.2 g/dL (13.0-17.5) Hematocrit 24.5 % (39.0-53.0) Mean Corpuscular Volume 108 fL (79-100) Mean Corpuscular Hemoglobin 36 pg (25-35) Mean Corpuscular Hemoglobin Concent 33 g/dL (31-37) Red Cell Distribution Width 25.0 % (11.5-14.5) Platelet Count 60 x10^3/uL (140-400) Neutrophils (%) (Auto) 81 % (31-73) Lymphocytes (%) (Auto) 9 % (24-48) Monocytes (%) (Auto) 8 % (0-9) Eosinophils (%) (Auto) 2 % (0-3) Basophils (%) (Auto) 1 % (0-3) Neutrophils # (Auto) 14.2 x10^3/uL (1.8-7.7) Lymphocytes # (Auto) 1.6 x10^3/uL (1.0-4.8) Monocytes # (Auto) 1.3 x10^3/uL (0.0-1.1) Eosinophils # (Auto) 0.3 x10^3/uL (0.0-0.7) Basophils # (Auto) 0.2 x10^3/uL (0.0-0.2) Laboratory Tests Test 01/14/19 04:51 White Blood Count 17.6 x10^3/uL (4.0-11.0) Red Blood Count 2.28 x10^6/uL (4.30-5.70) Hemoglobin 8.2 g/dL (13.0-17.5) Hematocrit 24.5 % (39.0-53.0) Mean Corpuscular Volume 108 fL (79-100) Mean Corpuscular Hemoglobin 36 pg (25-35) Mean Corpuscular Hemoglobin Concent 33 g/dL (31-37) Red Cell Distribution Width 25.0 % (11.5-14.5) Platelet Count 60 x10^3/uL (140-400) Neutrophils (%) (Auto) 81 % (31-73) Lymphocytes (%) (Auto) 9 % (24-48) Monocytes (%) (Auto) 8 % (0-9) Eosinophils (%) (Auto) 2 % (0-3) Basophils (%) (Auto) 1 % (0-3) Neutrophils # (Auto) 14.2 x10^3/uL (1.8-7.7) Lymphocytes # (Auto) 1.6 x10^3/uL (1.0-4.8) Monocytes # (Auto) 1.3 x10^3/uL (0.0-1.1) Eosinophils # (Auto) 0.3 x10^3/uL (0.0-0.7) Basophils # (Auto) 0.2 x10^3/uL (0.0-0.2) Prothrombin Time 20.8 SEC (11.7-14.0) Prothromb Time International Ratio 1.8 (0.8-1.1) Sodium Level 132 mmol/L (136-145) Potassium Level 4.0 mmol/L (3.5-5.1) Chloride Level 103 mmol/L (98-107) Carbon Dioxide Level 19 mmol/L (21-32) Anion Gap 10 (6-14) Blood Urea Nitrogen 37 mg/dL (8-26) Creatinine 1.4 mg/dL (0.7-1.3) Estimated GFR (Cockcroft-Gault) 55.1 Glucose Level 101 mg/dL (70-99) Calcium Level 7.2 mg/dL (8.5-10.1) Phosphorus Level 3.6 mg/dL (2.6-4.7) Magnesium Level 2.1 mg/dL (1.8-2.4) Medications Active Scripts Medications Dose Route/Sig Max Daily Dose Days Date Category Omeprazole 40 Mg Capsule.dr 1 Cap PO DAILY 01/04/19 Reported Impression . 1. Acute hypoxic respiratory failure secondary to multifactorial etiologies including acute hepatic encephalopathy, sepsis, suspected acute lung injury, risk for aspiration, and acute on chronic hepatic failure, resolved 2. Acute alcoholic hepatic encephalopathy. 3. Acute on chronic liver failure with increased bilirubin and transaminases. GI is following. 4. Marked lactic acidosis improved. Likely sepsis, but could be related to type B lactic acidosis from liver failure. 5. Coagulopathy secondary to liver failure. 6. Marked metabolic acidosis on ABGs related to lactic acidosis and hepatic failure. improved 7. hypernatremia, per renal Plan . 1. Discussed with RN. We will continue to observe and give O2 if needed, BiPap if needed, although I do not anticipate that 2. No active pulmonary issues 3. Correction of metabolic acidosis. no further bicarbonate. 4. Continue antibiotics. 5. Follow GI recommendation. 6. octreotide drip.per GI 7. DuoNeb. 8. Alcohol withdrawal precautions. 9. There is also concern for hepatic or colonic malignancy.GI following 10.Monitor Na, per renal 11.speech eval and if can eat PO, wean TPN D/W RN will sign off DIVYA VASQUEZ MD Jan 14, 2019 09:56
--- NOTE | 2019-01-14 10:31 | PDOC ---
Renal-Progress Notes Subjective Notes Notes SITTING UP History of Present Illness Hx of present illness BETTER Vitals Vitals Vital Signs Date Time Temp Pulse Resp B/P (MAP) Pulse Ox O2 Delivery O2 Flow Rate FiO2 01/14/19 09:29 94 Room Air 01/14/19 04:00 98.8 88 21 96/59 (71) 98.8 Weight Weight [ ] I.O. Intake and Output Intake and Output 01/14/19 06:59 Intake Total 3560 ml Output Total 1025 ml Balance 2535 ml Intake Oral 1080 ml IV Total 2480 ml Output Urine Total 1025 ml # Bowel Movements 2 Labs Labs Laboratory Tests Test 01/14/19 04:51 White Blood Count 17.6 x10^3/uL (4.0-11.0) Red Blood Count 2.28 x10^6/uL (4.30-5.70) Hemoglobin 8.2 g/dL (13.0-17.5) Hematocrit 24.5 % (39.0-53.0) Mean Corpuscular Volume 108 fL (79-100) Mean Corpuscular Hemoglobin 36 pg (25-35) Mean Corpuscular Hemoglobin Concent 33 g/dL (31-37) Red Cell Distribution Width 25.0 % (11.5-14.5) Platelet Count 60 x10^3/uL (140-400) Neutrophils (%) (Auto) 81 % (31-73) Lymphocytes (%) (Auto) 9 % (24-48) Monocytes (%) (Auto) 8 % (0-9) Eosinophils (%) (Auto) 2 % (0-3) Basophils (%) (Auto) 1 % (0-3) Neutrophils # (Auto) 14.2 x10^3/uL (1.8-7.7) Lymphocytes # (Auto) 1.6 x10^3/uL (1.0-4.8) Monocytes # (Auto) 1.3 x10^3/uL (0.0-1.1) Eosinophils # (Auto) 0.3 x10^3/uL (0.0-0.7) Basophils # (Auto) 0.2 x10^3/uL (0.0-0.2) Prothrombin Time 20.8 SEC (11.7-14.0) Prothromb Time International Ratio 1.8 (0.8-1.1) Sodium Level 132 mmol/L (136-145) Potassium Level 4.0 mmol/L (3.5-5.1) Chloride Level 103 mmol/L (98-107) Carbon Dioxide Level 19 mmol/L (21-32) Anion Gap 10 (6-14) Blood Urea Nitrogen 37 mg/dL (8-26) Creatinine 1.4 mg/dL (0.7-1.3) Estimated GFR (Cockcroft-Gault) 55.1 Glucose Level 101 mg/dL (70-99) Calcium Level 7.2 mg/dL (8.5-10.1) Phosphorus Level 3.6 mg/dL (2.6-4.7) Magnesium Level 2.1 mg/dL (1.8-2.4) Micro Micro Microbiology 01/12/19 Blood Culture - Preliminary, Resulted NO GROWTH AFTER 1 DAY 01/04/19 Urine Culture - Final, Complete 01/04/19 Urine Culture Result 1 (DONALD) - Final, Complete Review of Systems Constitutional: yes: other (CONFUSION PERSISTS) Physical Exam General Appearance: no apparent distress Skin: warm Respiratory: decreased breath sounds Heart: S1S2 Abdomen: soft, bowel sounds present Genitourinary: bladder flat, no mass Extremities: pulses present Neurology: alert Assessment Assessment IMP MILD DEE DEE HYPERNATREMIA-RESOLVED 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
--- NOTE | 2019-01-14 10:35 | PDOC ---
PROGRESS NOTES Assessment Problems Medical Problems: (1) Alcoholic liver disease Status: Acute (2) Cholelithiasis Status: Acute (3) Colitis Status: Acute (4) Jaundice Status: Acute (5) Pancreatitis Status: Acute (6) Thrombocytopenia Status: Acute Metabolic encephalopathy. Toxic encephalopathy. Respiratory failure. Alcohol intoxication. Lactic acidosis. Hepatic Injury. Elevated ammonia level. Thrombocytopenia. Coagulopathy, elevated PT/INR related to hepatic disease likely. Cirrhosis. Colitis. HTN. Substances abuse, alcohol. Plan Continue Vit B1 100 mg daily. Treat medical and hematologic diseases. ID on team. Hold of EEG, given improvement Subjective No complaints Objective Vital Signs Date Time Temp Pulse Resp B/P (MAP) Pulse Ox O2 Delivery O2 Flow Rate FiO2 01/14/19 09:29 94 Room Air 01/14/19 04:00 98.8 88 21 96/59 (71) 98.8 Intake and Output 01/14/19 06:59 Intake Total 3560 ml Output Total 1025 ml Balance 2535 ml Intake Oral 1080 ml IV Total 2480 ml Output Urine Total 1025 ml # Bowel Movements 2 PHYSICAL EXAM Alert. Oriented to place and person. PERRL. EOMI. CN: no focal findings. Muscle tone: normal. Muscle strength: 4/5 DTR: 1+ Plantar reflex: flexor Gait: not examined in bed. Sensory exam: no abnormal findings. Cerebellar: some bilateral dysmetria mainly due to weakness Review of Relevant I have reviewed the following items pierre (where applicable) has been applied. Labs Laboratory Tests Test 01/13/19 06:30 01/14/19 04:51 Prothrombin Time 21.9 SEC (11.7-14.0) 20.8 SEC (11.7-14.0) Prothromb Time International Ratio 1.9 (0.8-1.1) 1.8 (0.8-1.1) Sodium Level 135 mmol/L (136-145) 132 mmol/L (136-145) Potassium Level 4.1 mmol/L (3.5-5.1) 4.0 mmol/L (3.5-5.1) Chloride Level 106 mmol/L (98-107) 103 mmol/L (98-107) Carbon Dioxide Level 19 mmol/L (21-32) 19 mmol/L (21-32) Anion Gap 10 (6-14) 10 (6-14) Blood Urea Nitrogen 27 mg/dL (8-26) 37 mg/dL (8-26) Creatinine 1.0 mg/dL (0.7-1.3) 1.4 mg/dL (0.7-1.3) Estimated GFR (Cockcroft-Gault) 81.2 55.1 BUN/Creatinine Ratio 27 (6-20) Glucose Level 138 mg/dL (70-99) 101 mg/dL (70-99) Calcium Level 7.6 mg/dL (8.5-10.1) 7.2 mg/dL (8.5-10.1) Phosphorus Level 3.2 mg/dL (2.6-4.7) 3.6 mg/dL (2.6-4.7) Magnesium Level 2.2 mg/dL (1.8-2.4) 2.1 mg/dL (1.8-2.4) Total Bilirubin 21.9 mg/dL (0.2-1.0) Aspartate Amino Transf (AST/SGOT) 98 U/L (15-37) Alanine Aminotransferase (ALT/SGPT) 91 U/L (16-63) Alkaline Phosphatase 101 U/L (46-116) Total Protein 5.0 g/dL (6.4-8.2) Albumin 1.5 g/dL (3.4-5.0) Albumin/Globulin Ratio 0.4 (1.0-1.7) White Blood Count 17.6 x10^3/uL (4.0-11.0) Red Blood Count 2.28 x10^6/uL (4.30-5.70) Hemoglobin 8.2 g/dL (13.0-17.5) Hematocrit 24.5 % (39.0-53.0) Mean Corpuscular Volume 108 fL (79-100) Mean Corpuscular Hemoglobin 36 pg (25-35) Mean Corpuscular Hemoglobin Concent 33 g/dL (31-37) Red Cell Distribution Width 25.0 % (11.5-14.5) Platelet Count 60 x10^3/uL (140-400) Neutrophils (%) (Auto) 81 % (31-73) Lymphocytes (%) (Auto) 9 % (24-48) Monocytes (%) (Auto) 8 % (0-9) Eosinophils (%) (Auto) 2 % (0-3) Basophils (%) (Auto) 1 % (0-3) Neutrophils # (Auto) 14.2 x10^3/uL (1.8-7.7) Lymphocytes # (Auto) 1.6 x10^3/uL (1.0-4.8) Monocytes # (Auto) 1.3 x10^3/uL (0.0-1.1) Eosinophils # (Auto) 0.3 x10^3/uL (0.0-0.7) Basophils # (Auto) 0.2 x10^3/uL (0.0-0.2) Laboratory Tests Test 01/14/19 04:51 White Blood Count 17.6 x10^3/uL (4.0-11.0) Red Blood Count 2.28 x10^6/uL (4.30-5.70) Hemoglobin 8.2 g/dL (13.0-17.5) Hematocrit 24.5 % (39.0-53.0) Mean Corpuscular Volume 108 fL (79-100) Mean Corpuscular Hemoglobin 36 pg (25-35) Mean Corpuscular Hemoglobin Concent 33 g/dL (31-37) Red Cell Distribution Width 25.0 % (11.5-14.5) Platelet Count 60 x10^3/uL (140-400) Neutrophils (%) (Auto) 81 % (31-73) Lymphocytes (%) (Auto) 9 % (24-48) Monocytes (%) (Auto) 8 % (0-9) Eosinophils (%) (Auto) 2 % (0-3) Basophils (%) (Auto) 1 % (0-3) Neutrophils # (Auto) 14.2 x10^3/uL (1.8-7.7) Lymphocytes # (Auto) 1.6 x10^3/uL (1.0-4.8) Monocytes # (Auto) 1.3 x10^3/uL (0.0-1.1) Eosinophils # (Auto) 0.3 x10^3/uL (0.0-0.7) Basophils # (Auto) 0.2 x10^3/uL (0.0-0.2) Prothrombin Time 20.8 SEC (11.7-14.0) Prothromb Time International Ratio 1.8 (0.8-1.1) Sodium Level 132 mmol/L (136-145) Potassium Level 4.0 mmol/L (3.5-5.1) Chloride Level 103 mmol/L (98-107) Carbon Dioxide Level 19 mmol/L (21-32) Anion Gap 10 (6-14) Blood Urea Nitrogen 37 mg/dL (8-26) Creatinine 1.4 mg/dL (0.7-1.3) Estimated GFR (Cockcroft-Gault) 55.1 Glucose Level 101 mg/dL (70-99) Calcium Level 7.2 mg/dL (8.5-10.1) Phosphorus Level 3.6 mg/dL (2.6-4.7) Magnesium Level 2.1 mg/dL (1.8-2.4) Microbiology 01/12/19 Blood Culture - Preliminary, Resulted NO GROWTH AFTER 1 DAY 01/04/19 Urine Culture - Final, Complete 01/04/19 Urine Culture Result 1 (DONALD) - Final, Complete Medications Current Medications Iohexol (Omnipaque 240 Mg/ml) 30 ml 1X ONCE PO Last administered on 01/04/19at 15:15; Start 01/04/19 at 15:15; Stop 01/04/19 at 15:17; Status DC Iohexol (Omnipaque 300 Mg/ml) 75 ml 1X ONCE IV Last administered on 01/04/19at 16:20; Start 01/04/19 at 15:15; Stop 01/04/19 at 15:17; Status DC Info (CONTRAST GIVEN -- Rx MONITORING) 1 each PRN DAILY PRN MC SEE COMMENTS; Start 01/04/19 at 15:30; Stop 01/06/19 at 15:29; Status DC Multivitamins 10 ml/Thiamine HCl 100 mg/Folic Acid 1 mg/Sodium Chloride 1,011.2 ml @ 100 mls/ hr DAILY IV Last administered on 01/08/19at 08:12; Start 01/04/19 at 18:00; Stop 01/08/19 at 19:07; Status DC Chlordiazepoxide (Librium) 50 mg PRN Q1HR PRN PO For CIWA 8-14 Last administered on 01/04/19at 18:17; Start 01/04/19 at 17:45 Chlordiazepoxide (Librium) 100 mg PRN Q1HR PRN PO For CIWA 15 or greater Last administered on 01/05/19at 06:27; Start 01/04/19 at 17:45 Lorazepam (Ativan) 4 mg PRN Q1HR PRN PO For CIWA 8-14 Last administered on 01/04/19at 18:17; Start 01/04/19 at 17:45; Stop 01/10/19 at 07:34; Status DC Lorazepam (Ativan) 8 mg PRN Q1HR PRN PO For CIWA 15 or greater; Start 01/04/19 at 17:45; Stop 01/10/19 at 07:34; Status DC Haloperidol Lactate (Haldol Inj) 5 mg PRN Q4HRS PRN IVP Hallucinatns,Confusn,Delirium Last administered on 01/13/19at 11:22; Start 01/04/19 at 17:45 Diphenhydramine HCl (Benadryl) 25 mg PRN Q15MIN PRN IVP EPS symptoms 2'Haldol admin; Start 01/04/19 at 17:45 Clonidine HCl (Catapres) 0.1 mg PRN Q1HR PRN PO SBP > 180 or DBP > 100, MRX3 Last administered on 01/08/19at 07:18; Start 01/04/19 at 17:45; Stop 01/08/19 at 08:58; Status DC Lorazepam (Ativan Inj) 2 mg PRN Q1HR PRN IV For CIWA 8-14 Last administered on 01/11/19at 22:50; Start 01/04/19 at 19:15 Lorazepam (Ativan Inj) 4 mg PRN Q1HR PRN IV For CIWA 15 or greater Last administered on 01/05/19at 06:28; Start 01/04/19 at 19:15 Lorazepam (Ativan Inj) 2 mg PRN Q15MIN PRN IV SEE COMMENTS; Start 01/04/19 at 19:15; Status UNV Lorazepam (Ativan Inj) 4 mg PRN Q15MIN PRN IV SEE COMMENTS; Start 01/04/19 at 19:15; Status UNV Ondansetron HCl (Zofran) 4 mg PRN Q6HRS PRN IV NAUSEA/VOMITING Last administered on 01/04/19at 19:34; Start 01/04/19 at 19:30 Pantoprazole Sodium (PROTONIX VIAL for IV PUSH) 40 mg DAILYAC IVP Last administered on 01/06/19at 10:36; Start 01/06/19 at 10:00; Stop 01/06/19 at 12:17; Status DC Phytonadione (Vitamin K Ampule) 10 mg 1X ONCE SQ Last administered on 01/06/19at 10:36; Start 01/06/19 at 10:15; Stop 01/06/19 at 10:16; Status DC Piperacillin Sod/ Tazobactam Sod (Zosyn Per Pharmacy) 1 each PRN DAILY PRN MC SEE COMMENTS; Start 01/06/19 at 10:30 Piperacillin Sod/ Tazobactam Sod 3.375 gm/Sodium Chloride 50 ml @ 100 mls/hr Q6HRS IV Last administered on 01/14/19at 06:10; Start 01/06/19 at 11:00 Lactulose (Lactulose) 30 gm Q6HRS NG Last administered on 01/09/19at 05:53; Start 01/06/19 at 12:00; Stop 01/09/19 at 10:51; Status DC Metronidazole 100 ml @ 100 mls/hr Q8HRS IV Last administered on 01/09/19at 05:53; Start 01/06/19 at 14:00; Stop 01/09/19 at 07:19; Status DC Pantoprazole Sodium 80 mg/ Sodium Chloride 100 ml @ 10 mls/hr Q10H IV Last administered on 01/10/19at 02:31; Start 01/06/19 at 12:30; Stop 01/10/19 at 12:11; Status DC Octreotide Acetate 500 mcg/ Sodium Chloride 101 ml @ 0 mls/hr CONT PRN IV SEE I/O RECORD Last administered on 01/08/19at 06:08; Start 01/06/19 at 12:15; Stop 01/08/19 at 10:48; Status DC Norepinephrine Bitartrate 250 ml @ 14.235 mls/ hr CONT PRN IV SEE I/O RECORD; Start 01/06/19 at 20:15; Stop 01/13/19 at 13:28; Status DC Albumin Human 100 ml @ 100 mls/hr 1X ONCE IV Last administered on 01/06/19at 21:30; Start 01/06/19 at 20:15; Stop 01/06/19 at 21:14; Status DC Phytonadione (Vitamin K Ampule) 10 mg 1X ONCE SQ Last administered on 01/07/19at 13:04; Start 01/07/19 at 11:45; Stop 01/07/19 at 11:46; Status DC Albuterol/ Ipratropium (Duoneb) 3 ml RTQID NEB Last administered on 01/14/19at 09:29; Start 01/07/19 at 16:00 Sodium Chloride 1,000 ml @ 75 mls/hr [id number] IV Last administered on 01/08/19at 23:47; Start 01/08/19 at 06:00; Stop 01/09/19 at 10:19; Status DC Labetalol HCl (Normodyne Iv Push) 10 mg PRN Q4HRS PRN IVP HYPERTENSION; Start 01/08/19 at 09:00 Potassium Bicarbonate (Potassium Effervescent Tablet) 40 meq 1X ONCE PEG Last administered on 01/08/19at 12:24; Start 01/08/19 at 11:30; Stop 01/08/19 at 11:33; Status DC Potassium Bicarbonate (Potassium Effervescent Tablet) 40 meq 1X ONCE PEG Last administered on 01/08/19at 16:06; Start 01/08/19 at 16:00; Stop 01/08/19 at 16:01; Status DC Potassium Bicarbonate (Potassium Effervescent Tablet) 80 meq 1X ONCE PEG Last administered on 01/09/19at 06:58; Start 01/09/19 at 06:15; Stop 01/09/19 at 06:21; Status DC Artificial Tears (Artificial Tears) 1 drop PRN Q15MIN PRN OU DRY EYE Last administered on 01/09/19at 10:11; Start 01/09/19 at 10:00 Dextrose/Sodium Chloride 1,000 ml @ 75 mls/hr [id number] IV Last administered on 01/09/19at 11:03; Start 01/09/19 at 10:30; Stop 01/09/19 at 12:20; Status DC Potassium Chloride/Water 50 ml @ 50 mls/hr Q1H IV ; Start 01/09/19 at 10:30; Stop 01/09/19 at 12:29; Status UNV Potassium Chloride/Water 100 ml @ 100 mls/hr Q1H IV ; Start 01/09/19 at 11:00; Stop 01/09/19 at 11:00; Status DC Lactulose (Lactulose) 30 gm BID NG Last administered on 01/09/19at 20:52; Start 01/09/19 at 21:00; Stop 01/10/19 at 13:57; Status DC Dextrose 1,000 ml @ 100 mls/hr Q10H IV Last administered on 01/13/19at 11:22; Start 01/09/19 at 12:30 Info (Tpn Per Pharmacy) 1 each PRN DAILY PRN MC SEE COMMENTS Last administered on 01/12/19at 13:31; Start 01/09/19 at 15:15; Stop 01/13/19 at 13:27; Status DC Potassium Chloride 50 meq/ Potassium Phosphate 13.6 mmol/Magnesium Sulfate 10 meq/ Calcium Gluconate 10 meq/ Multivitamins 10 ml/Chromium/ Copper/Manganese/ Seleni/Zn 1 ml/ Total Parenteral Nutrition/Amino Acids/Dextrose/ Fat Emulsion Intravenous 1,512 ml @ 63 mls/hr TPN CONT IV Last administered on 01/09/19at 21:41; Start 01/09/19 at 22:00; Stop 01/10/19 at 21:59; Status DC Potassium Chloride/Water 50 ml @ 50 mls/hr Q1H IV Last administered on 01/09/19at 20:51; Start 01/09/19 at 18:00; Stop 01/09/19 at 21:59; Status DC Potassium Phosphate 13.6 mmol/Dextrose 254.5333 ml @ 62.646 m... 1X ONCE IV Last administered on 01/09/19at 21:49; Start 01/09/19 at 22:00; Stop 01/10/19 at 08:03; Status DC Potassium Chloride/Water 50 ml @ 50 mls/hr Q1H IV Last administered on 01/10/19at 11:41; Start 01/10/19 at 08:00; Stop 01/10/19 at 11:59; Status DC Sodium Phosphate 40 mmol/Dextrose 263.3333 ml @ 62.5 mls/hr 1X ONCE IV ; Start 01/10/19 at 08:00; Stop 01/10/19 at 08:49; Status DC Potassium Phosphate 12 mmol/ Sodium Chloride 254 ml @ 125 mls/hr Q2H IV Last administered on 01/10/19 15:24; Start 01/10/19 at 08:00; Stop 01/10/19 at 11:59; Status DC Potassium Chloride 40 meq/ Potassium Acetate 40 meq/Potassium Phosphate 15 mmol/ Magnesium Sulfate 10 meq/Calcium Gluconate 10 meq/ Multivitamins 10 ml/Chromium/ Copper/Manganese/ Seleni/Zn 1 ml/ Total Parenteral Nutrition/Amino Acids/Dextrose/ Fat Emulsion Intravenous 1,512 ml @ 63 mls/hr TPN CONT IV Last administered on 01/10/19at 22:08; Start 01/10/19 at 22:00; Stop 01/11/19 at 21:59; Status DC Pantoprazole Sodium (PROTONIX VIAL for IV PUSH) 40 mg BIDAC IVP Last administered on 01/14/19 08:54; Start 01/10/19 at 16:30 Sodium Chloride 250 ml @ 250 mls/hr 1X ONCE IV Last administered on 01/10/19 19:30; Start 01/10/19 at 19:30; Stop 01/10/19 at 20:29; Status DC Lorazepam (Ativan Inj) 1 mg PRN Q6HRS PRN IV ANXIETY / AGITATION Last administered on 01/10/19at 23:23; Start 01/10/19 at 23:15 Potassium Chloride 40 meq/ Potassium Acetate 40 meq/Potassium Phosphate 15 mmol/ Magnesium Sulfate 10 meq/Calcium Gluconate 10 meq/ Multivitamins 10 ml/Chromium/ Copper/Manganese/ Seleni/Zn 1 ml/ Total Parenteral Nutrition/Amino Acids/Dextrose/ Fat Emulsion Intravenous 1,512 ml @ 63 mls/hr TPN CONT IV Last administered on 01/11/19at 21:34; Start 01/11/19 at 22:00; Stop 01/12/19 at 21:59; Status DC Morphine Sulfate (Morphine Sulfate) 2 mg 1X ONCE IV Last administered on 01/12at 10:40; Start 01/12/19 at 09:30; Stop 01/12/19 at 09:31; Status DC Potassium Phosphate 13.6 mmol/Dextrose 104.5333 ml @ 52.267 m... Q2H IV Last administered on 01/12/19at 13:22; Start 01/12/19 at 11:30; Stop 01/12/19 at 15:29; Status DC Vancomycin HCl (Vanco Per Pharmacy) 1 each PRN DAILY PRN MC SEE COMMENTS Last administered on 01/14/19at 09:03; Start 01/12/19 at 11:15 Vancomycin HCl 2 gm/Sodium Chloride 500 ml @ 250 mls/hr ONCE ONCE IV Last administered on 01/12/19at 13:22; Start 01/12/19 at 12:00; Stop 01/12/19 at 13:59; Status DC Potassium Chloride 40 meq/ Potassium Acetate 40 meq/Potassium Phosphate 15 mmol/ Magnesium Sulfate 10 meq/Calcium Gluconate 10 meq/ Multivitamins 10 ml/Chromium/ Copper/Manganese/ Seleni/Zn 1 ml/ Total Parenteral Nutrition/Amino Acids/Dextrose/ Fat Emulsion Intravenous 1,512 ml @ 63 mls/hr TPN CONT IV Last administered on 01/12/19at 21:48; Start 01/12/19 at 22:00; Stop 01/13/19 at 21:59; Status DC Vancomycin HCl 2 gm/Sodium Chloride 500 ml @ 250 mls/hr 1X ONCE IV Last administered on 01/13/19at 08:27; Start 01/13/19 at 08:00; Stop 01/13/19 at 09:59; Status DC Vancomycin HCl 1.25 gm/Sodium Chloride 250 ml @ 167 mls/hr Q12H IV Last administered on 01/14/19at 08:54; Start 01/13/19 at 21:00 Vancomycin HCl (Vancomycin Trough Level) 1 each 1X ONCE MC ; Start 01/14/19 at 20:30; Stop 01/14/19 at 20:31 Lactobacillus Rhamnosus (Culturelle) 1 cap BID PO ; Start 01/14/19 at 21:00 Active Scripts Active Reported Omeprazole 40 Mg Capsule. 1 Cap PO DAILY Vitals/I & O Vital Sign - Last 24 Hours 01/13/19 01/13/19 01/13/19 01/13/19 11:14 11:42 15:00 20:00 Temp 98.5 98.5 98.6 98.5 98.5 98.6 Pulse 105 94 90 Resp 30 26 20 B/P (MAP) 112/71 (85) 122/70 (87) 104/59 (74) Pulse Ox 96 94 96 95 O2 Delivery Room Air Room Air Room Air Room Air 7/21/01/14/19 01/14/19 01/14/19 20:00 00:00 04:00 09:29 Temp 98.6 98.8 98.6 98.8 Pulse 85 88 Resp 20 21 B/P (MAP) 93/56 (68) 96/59 (71) Pulse Ox 96 94 94 O2 Delivery Room Air Room Air Room Air Room Air Intake and Output 0 01/13/19 01/13/19 01/14/19 14:59 22:59 06:59 Intake Total 1826 ml 270 ml 1464 ml Output Total 420 ml 335 ml 270 ml Balance 1406 ml -65 ml 1194 ml MARIA TERESA HOSKINS MD Jan 14, 2019 10:35
--- NOTE | 2019-01-14 11:37 | PDOC ---
Subjective: Subjective: Says ate pancakes and sausage for breakfast, says people keep asking him where he is, says he'll get better with time. Objective: Objective: D/w nurse - small loose stools. Vital Signs: Vital Signs Date Time Temp Pulse Resp B/P (MAP) Pulse Ox O2 Delivery O2 Flow Rate FiO2 01/14/19 09:29 94 Room Air 01/14/19 04:00 98.8 88 21 96/59 (71) 98.8 Labs: Laboratory Tests Test 01/14/19 04:51 White Blood Count 17.6 x10^3/uL Red Blood Count 2.28 x10^6/uL Hemoglobin 8.2 g/dL Hematocrit 24.5 % Mean Corpuscular Volume 108 fL Mean Corpuscular Hemoglobin 36 pg Mean Corpuscular Hemoglobin Concent 33 g/dL Red Cell Distribution Width 25.0 % Platelet Count 60 x10^3/uL Neutrophils (%) (Auto) 81 % Lymphocytes (%) (Auto) 9 % Monocytes (%) (Auto) 8 % Eosinophils (%) (Auto) 2 % Basophils (%) (Auto) 1 % Neutrophils # (Auto) 14.2 x10^3/uL Lymphocytes # (Auto) 1.6 x10^3/uL Monocytes # (Auto) 1.3 x10^3/uL Eosinophils # (Auto) 0.3 x10^3/uL Basophils # (Auto) 0.2 x10^3/uL Prothrombin Time 20.8 SEC Prothromb Time International Ratio 1.8 Sodium Level 132 mmol/L Potassium Level 4.0 mmol/L Chloride Level 103 mmol/L Carbon Dioxide Level 19 mmol/L Anion Gap 10 Blood Urea Nitrogen 37 mg/dL Creatinine 1.4 mg/dL Estimated GFR (Cockcroft-Gault) 55.1 Glucose Level 101 mg/dL Calcium Level 7.2 mg/dL Phosphorus Level 3.6 mg/dL Magnesium Level 2.1 mg/dL PE: GEN: up to chair HEENT: sclerae icteric ABD: some distention, non-tender SKIN: +jaundice NEURO/PSYCH: talkative A/P: Alcoholic hepatitis - plt and INR better, bili impressive Leukocytosis, DEE DEE -- Change to PO PPI. Continue support. Will review w/ Dr. Francis re: any need for further eval of liver mass (normal AFP). EMILEE TRAMMELL Jan 14, 2019 11:37
[2019-01-14] MEDS: IV DEXTROSE 5% - 0.9 % NACL 1,000 ML IV SCH (12:00)
--- NOTE | 2019-01-14 14:41 | PDOC ---
PROGRESS NOTES Chief Complaint Chief Complaint Sepsis w/ hypotension, lactic acidosis and fever severely encephalopathic - hypernatremia, hypokalemia Hemoglobin 8.3 post transfusion 01/09 INR has climbed to 2.7 moved ICU Ammonia levels 208 ON ADMIT I discussed nurse ID following GI.consulted pulm consulted vit k 10mg sq plus 2 units FFP 01/07 PCXR 01/07 echo 01/07, cardiology consult The left ventricular systolic function is normal and the ejection fraction is within normal range. The Ejection Fraction is 60-65%. neurology consult, ct head NOTED History of Present Illness History of Present Illness calm, talking better, eating better more clear mentally, up to chair, able to eat some no pain Vitals Vitals Vital Signs Date Time Temp Pulse Resp B/P (MAP) Pulse Ox O2 Delivery O2 Flow Rate FiO2 01/14/19 12:22 94 Room Air 01/14/19 12:00 98.4 87 24 96/60 (72) 98.4 Physical Exam Physical Exam GENERAL: in bed alert, calm, jaundiced HEENT: Pupils equally round and reactive. Icterus. Oral cavity dry NECK: Supple. LUNGS: Decreased in bases HEART: S1 and S2 regular ABDOMEN: Distended, soft, no grimace or guarding to palpation. Bowel sounds present. GENITOURINARY: Indwelling Galdamez in place. EXTREMITIES: No gross edema or cyanosis SKIN: Warm to touch. Multiple ecchymoses, especially lower extremities. Petechial-type rash arms/abdomen BERNA hose in place NEUROLOGIC: Alert, confused and follows simple commands RIJ -clean General: Alert, Cooperative, No acute distress Heart: Normal S1, Normal S2 Lungs: Other (decrease bs) Abdomen: Soft, No tenderness, Other (ND) Extremities: No cyanosis, Other (noted eccyhmosis, 2 PLUS pedal edema ) Skin: Other (Bruising and jaundice) Labs LABS Laboratory Tests Test 01/14/19 04:51 White Blood Count 17.6 x10^3/uL (4.0-11.0) Red Blood Count 2.28 x10^6/uL (4.30-5.70) Hemoglobin 8.2 g/dL (13.0-17.5) Hematocrit 24.5 % (39.0-53.0) Mean Corpuscular Volume 108 fL (79-100) Mean Corpuscular Hemoglobin 36 pg (25-35) Mean Corpuscular Hemoglobin Concent 33 g/dL (31-37) Red Cell Distribution Width 25.0 % (11.5-14.5) Platelet Count 60 x10^3/uL (140-400) Neutrophils (%) (Auto) 81 % (31-73) Lymphocytes (%) (Auto) 9 % (24-48) Monocytes (%) (Auto) 8 % (0-9) Eosinophils (%) (Auto) 2 % (0-3) Basophils (%) (Auto) 1 % (0-3) Neutrophils # (Auto) 14.2 x10^3/uL (1.8-7.7) Lymphocytes # (Auto) 1.6 x10^3/uL (1.0-4.8) Monocytes # (Auto) 1.3 x10^3/uL (0.0-1.1) Eosinophils # (Auto) 0.3 x10^3/uL (0.0-0.7) Basophils # (Auto) 0.2 x10^3/uL (0.0-0.2) Prothrombin Time 20.8 SEC (11.7-14.0) Prothromb Time International Ratio 1.8 (0.8-1.1) Sodium Level 132 mmol/L (136-145) Potassium Level 4.0 mmol/L (3.5-5.1) Chloride Level 103 mmol/L (98-107) Carbon Dioxide Level 19 mmol/L (21-32) Anion Gap 10 (6-14) Blood Urea Nitrogen 37 mg/dL (8-26) Creatinine 1.4 mg/dL (0.7-1.3) Estimated GFR (Cockcroft-Gault) 55.1 Glucose Level 101 mg/dL (70-99) Calcium Level 7.2 mg/dL (8.5-10.1) Phosphorus Level 3.6 mg/dL (2.6-4.7) Magnesium Level 2.1 mg/dL (1.8-2.4) Assessment and Plan Assessmemt and Plan Problems Medical Problems: (1) Alcoholic liver disease Status: Acute (2) Cholelithiasis Status: Acute (3) Colitis Status: Acute (4) Jaundice Status: Acute (5) Pancreatitis Status: Acute (6) Thrombocytopenia Status: Acute Comment Review of Relevant I have reviewed the following items pierre (where applicable) has been applied. Labs Laboratory Tests Test 01/13/19 06:30 01/14/19 04:51 Prothrombin Time 21.9 SEC (11.7-14.0) 20.8 SEC (11.7-14.0) Prothromb Time International Ratio 1.9 (0.8-1.1) 1.8 (0.8-1.1) Sodium Level 135 mmol/L (136-145) 132 mmol/L (136-145) Potassium Level 4.1 mmol/L (3.5-5.1) 4.0 mmol/L (3.5-5.1) Chloride Level 106 mmol/L (98-107) 103 mmol/L (98-107) Carbon Dioxide Level 19 mmol/L (21-32) 19 mmol/L (21-32) Anion Gap 10 (6-14) 10 (6-14) Blood Urea Nitrogen 27 mg/dL (8-26) 37 mg/dL (8-26) Creatinine 1.0 mg/dL (0.7-1.3) 1.4 mg/dL (0.7-1.3) Estimated GFR (Cockcroft-Gault) 81.2 55.1 BUN/Creatinine Ratio 27 (6-20) Glucose Level 138 mg/dL (70-99) 101 mg/dL (70-99) Calcium Level 7.6 mg/dL (8.5-10.1) 7.2 mg/dL (8.5-10.1) Phosphorus Level 3.2 mg/dL (2.6-4.7) 3.6 mg/dL (2.6-4.7) Magnesium Level 2.2 mg/dL (1.8-2.4) 2.1 mg/dL (1.8-2.4) Total Bilirubin 21.9 mg/dL (0.2-1.0) Aspartate Amino Transf (AST/SGOT) 98 U/L (15-37) Alanine Aminotransferase (ALT/SGPT) 91 U/L (16-63) Alkaline Phosphatase 101 U/L (46-116) Total Protein 5.0 g/dL (6.4-8.2) Albumin 1.5 g/dL (3.4-5.0) Albumin/Globulin Ratio 0.4 (1.0-1.7) White Blood Count 17.6 x10^3/uL (4.0-11.0) Red Blood Count 2.28 x10^6/uL (4.30-5.70) Hemoglobin 8.2 g/dL (13.0-17.5) Hematocrit 24.5 % (39.0-53.0) Mean Corpuscular Volume 108 fL (79-100) Mean Corpuscular Hemoglobin 36 pg (25-35) Mean Corpuscular Hemoglobin Concent 33 g/dL (31-37) Red Cell Distribution Width 25.0 % (11.5-14.5) Platelet Count 60 x10^3/uL (140-400) Neutrophils (%) (Auto) 81 % (31-73) Lymphocytes (%) (Auto) 9 % (24-48) Monocytes (%) (Auto) 8 % (0-9) Eosinophils (%) (Auto) 2 % (0-3) Basophils (%) (Auto) 1 % (0-3) Neutrophils # (Auto) 14.2 x10^3/uL (1.8-7.7) Lymphocytes # (Auto) 1.6 x10^3/uL (1.0-4.8) Monocytes # (Auto) 1.3 x10^3/uL (0.0-1.1) Eosinophils # (Auto) 0.3 x10^3/uL (0.0-0.7) Basophils # (Auto) 0.2 x10^3/uL (0.0-0.2) Laboratory Tests Test 01/14/19 04:51 White Blood Count 17.6 x10^3/uL (4.0-11.0) Red Blood Count 2.28 x10^6/uL (4.30-5.70) Hemoglobin 8.2 g/dL (13.0-17.5) Hematocrit 24.5 % (39.0-53.0) Mean Corpuscular Volume 108 fL (79-100) Mean Corpuscular Hemoglobin 36 pg (25-35) Mean Corpuscular Hemoglobin Concent 33 g/dL (31-37) Red Cell Distribution Width 25.0 % (11.5-14.5) Platelet Count 60 x10^3/uL (140-400) Neutrophils (%) (Auto) 81 % (31-73) Lymphocytes (%) (Auto) 9 % (24-48) Monocytes (%) (Auto) 8 % (0-9) Eosinophils (%) (Auto) 2 % (0-3) Basophils (%) (Auto) 1 % (0-3) Neutrophils # (Auto) 14.2 x10^3/uL (1.8-7.7) Lymphocytes # (Auto) 1.6 x10^3/uL (1.0-4.8) Monocytes # (Auto) 1.3 x10^3/uL (0.0-1.1) Eosinophils # (Auto) 0.3 x10^3/uL (0.0-0.7) Basophils # (Auto) 0.2 x10^3/uL (0.0-0.2) Prothrombin Time 20.8 SEC (11.7-14.0) Prothromb Time International Ratio 1.8 (0.8-1.1) Sodium Level 132 mmol/L (136-145) Potassium Level 4.0 mmol/L (3.5-5.1) Chloride Level 103 mmol/L (98-107) Carbon Dioxide Level 19 mmol/L (21-32) Anion Gap 10 (6-14) Blood Urea Nitrogen 37 mg/dL (8-26) Creatinine 1.4 mg/dL (0.7-1.3) Estimated GFR (Cockcroft-Gault) 55.1 Glucose Level 101 mg/dL (70-99) Calcium Level 7.2 mg/dL (8.5-10.1) Phosphorus Level 3.6 mg/dL (2.6-4.7) Magnesium Level 2.1 mg/dL (1.8-2.4) Microbiology 01/12/19 Blood Culture - Preliminary, Resulted NO GROWTH AFTER 2 DAYS 01/04/19 Urine Culture - Final, Complete 01/04/19 Urine Culture Result 1 (DONALD) - Final, Complete Medications Current Medications Iohexol (Omnipaque 240 Mg/ml) 30 ml 1X ONCE PO Last administered on 01/04/19at 15:15; Start 01/04/19 at 15:15; Stop 01/04/19 at 15:17; Status DC Iohexol (Omnipaque 300 Mg/ml) 75 ml 1X ONCE IV Last administered on 01/04/19at 16:20; Start 01/04/19 at 15:15; Stop 01/04/19 at 15:17; Status DC Info (CONTRAST GIVEN -- Rx MONITORING) 1 each PRN DAILY PRN MC SEE COMMENTS; Start 01/04/19 at 15:30; Stop 01/06/19 at 15:29; Status DC Multivitamins 10 ml/Thiamine HCl 100 mg/Folic Acid 1 mg/Sodium Chloride 1,011.2 ml @ 100 mls/ hr DAILY IV Last administered on 01/08/19at 08:12; Start 01/04/19 at 18:00; Stop 01/08/19 at 19:07; Status DC Chlordiazepoxide (Librium) 50 mg PRN Q1HR PRN PO For CIWA 8-14 Last administered on 01/04/19at 18:17; Start 01/04/19 at 17:45 Chlordiazepoxide (Librium) 100 mg PRN Q1HR PRN PO For CIWA 15 or greater Last administered on 01/05/19at 06:27; Start 01/04/19 at 17:45 Lorazepam (Ativan) 4 mg PRN Q1HR PRN PO For CIWA 8-14 Last administered on 01/04/19at 18:17; Start 01/04/19 at 17:45; Stop 01/10/19 at 07:34; Status DC Lorazepam (Ativan) 8 mg PRN Q1HR PRN PO For CIWA 15 or greater; Start 01/04/19 at 17:45; Stop 01/10/19 at 07:34; Status DC Haloperidol Lactate (Haldol Inj) 5 mg PRN Q4HRS PRN IVP Hallucinatns,Confusn,Delirium Last administered on 01/13/19at 11:22; Start 01/04/19 at 17:45 Diphenhydramine HCl (Benadryl) 25 mg PRN Q15MIN PRN IVP EPS symptoms 2'Haldol admin; Start 01/04/19 at 17:45 Clonidine HCl (Catapres) 0.1 mg PRN Q1HR PRN PO SBP > 180 or DBP > 100, MRX3 Last administered on 01/08/19at 07:18; Start 01/04/19 at 17:45; Stop 01/08/19 at 08:58; Status DC Lorazepam (Ativan Inj) 2 mg PRN Q1HR PRN IV For CIWA 8-14 Last administered on 01/11/19at 22:50; Start 01/04/19 at 19:15 Lorazepam (Ativan Inj) 4 mg PRN Q1HR PRN IV For CIWA 15 or greater Last admini stered on 01/05/19at 06:28; Start 01/04/19 at 19:15 Lorazepam (Ativan Inj) 2 mg PRN Q15MIN PRN IV SEE COMMENTS; Start 01/04/19 at 19:15; Status UNV Lorazepam (Ativan Inj) 4 mg PRN Q15MIN PRN IV SEE COMMENTS; Start 01/04/19 at 19:15; Status UNV Ondansetron HCl (Zofran) 4 mg PRN Q6HRS PRN IV NAUSEA/VOMITING Last administered on 01/04/19at 19:34; Start 01/04/19 at 19:30 Pantoprazole Sodium (PROTONIX VIAL for IV PUSH) 40 mg DAILYAC IVP Last administered on 01/06/19at 10:36; Start 01/06/19 at 10:00; Stop 01/06/19 at 12:17; Status DC Phytonadione (Vitamin K Ampule) 10 mg 1X ONCE SQ Last administered on 01/06/19at 10:36; Start 01/06/19 at 10:15; Stop 01/06/19 at 10:16; Status DC Piperacillin Sod/ Tazobactam Sod (Zosyn Per Pharmacy) 1 each PRN DAILY PRN MC SEE COMMENTS; Start 01/06/19 at 10:30 Piperacillin Sod/ Tazobactam Sod 3.375 gm/Sodium Chloride 50 ml @ 100 mls/hr Q6HRS IV Last administered on 01/14/19at 14:27; Start 01/06/19 at 11:00 Lactulose (Lactulose) 30 gm Q6HRS NG Last administered on 01/09/19at 05:53; Start 01/06/19 at 12:00; Stop 01/09/19 at 10:51; Status DC Metronidazole 100 ml @ 100 mls/hr Q8HRS IV Last administered on 01/09/19at 05:53; Start 01/06/19 at 14:00; Stop 01/09/19 at 07:19; Status DC Pantoprazole Sodium 80 mg/ Sodium Chloride 100 ml @ 10 mls/hr Q10H IV Last administered on 01/10/19at 02:31; Start 01/06/19 at 12:30; Stop 01/10/19 at 12:11; Status DC Octreotide Acetate 500 mcg/ Sodium Chloride 101 ml @ 0 mls/hr CONT PRN IV SEE I/O RECORD Last administered on 01/08/19at 06:08; Start 01/06/19 at 12:15; Stop 01/08/19 at 10:48; Status DC Norepinephrine Bitartrate 250 ml @ 14.235 mls/ hr CONT PRN IV SEE I/O RECORD; Start 01/06/19 at 20:15; Stop 01/13/19 at 13:28; Status DC Albumin Human 100 ml @ 100 mls/hr 1X ONCE IV Last administered on 01/06/19at 21:30; Start 01/06/19 at 20:15; Stop 01/06/19 at 21:14; Status DC Phytonadione (Vitamin K Ampule) 10 mg 1X ONCE SQ Last administered on 01/07/19at 13:04; Start 01/07/19 at 11:45; Stop 01/07/19 at 11:46; Status DC Albuterol/ Ipratropium (Duoneb) 3 ml RTQID NEB Last administered on 01/14/19at 12:22; Start 01/07/19 at 16:00 Sodium Chloride 1,000 ml @ 75 mls/hr [id number] IV Last administered on 01/08/19at 23:47; Start 01/08/19 at 06:00; Stop 01/09/19 at 10:19; Status DC Labetalol HCl (Normodyne Iv Push) 10 mg PRN Q4HRS PRN IVP HYPERTENSION; Start 01/08/19 at 09:00 Potassium Bicarbonate (Potassium Effervescent Tablet) 40 meq 1X ONCE PEG Last administered on 01/08/19at 12:24; Start 01/08/19 at 11:30; Stop 01/08/19 at 11:33; Status DC Potassium Bicarbonate (Potassium Effervescent Tablet) 40 meq 1X ONCE PEG Last administered on 01/08/19at 16:06; Start 01/08/19 at 16:00; Stop 01/08/19 at 16:01; Status DC Potassium Bicarbonate (Potassium Effervescent Tablet) 80 meq 1X ONCE PEG Last administered on 01/09/19at 06:58; Start 01/09/19 at 06:15; Stop 01/09/19 at 06:21; Status DC Artificial Tears (Artificial Tears) 1 drop PRN Q15MIN PRN OU DRY EYE Last administered on 01/09/19at 10:11; Start 01/09/19 at 10:00 Dextrose/Sodium Chloride 1,000 ml @ 75 mls/hr [id number] IV Last administered on 01/09/19at 11:03; Start 01/09/19 at 10:30; Stop 01/09/19 at 12:20; Status DC Potassium Chloride/Water 50 ml @ 50 mls/hr Q1H IV ; Start 01/09/19 at 10:30; Stop 01/09/19 at 12:29; Status UNV Potassium Chloride/Water 100 ml @ 100 mls/hr Q1H IV ; Start 01/09/19 at 11:00; Stop 01/09/19 at 11:00; Status DC Lactulose (Lactulose) 30 gm BID NG Last administered on 01/09/19at 20:52; Start 01/09/19 at 21:00; Stop 01/10/19 at 13:57; Status DC Dextrose 1,000 ml @ 100 mls/hr Q10H IV Last administered on 01/13/19at 11:22; Start 01/09/19 at 12:30; Stop 01/14/19 at 13:58; Status DC Info (Tpn Per Pharmacy) 1 each PRN DAILY PRN MC SEE COMMENTS Last administered on 01/12/19at 13:31; Start 01/09/19 at 15:15; Stop 01/13/19 at 13:27; Status DC Potassium Chloride 50 meq/ Potassium Phosphate 13.6 mmol/Magnesium Sulfate 10 meq/ Calcium Gluconate 10 meq/ Multivitamins 10 ml/Chromium/ Copper/Manganese/ Seleni/Zn 1 ml/ Total Parenteral Nutrition/Amino Acids/Dextrose/ Fat Emulsion Intravenous 1,512 ml @ 63 mls/hr TPN CONT IV Last administered on 01/09/19at 21:41; Start 01/09/19 at 22:00; Stop 01/10/19 at 21:59; Status DC Potassium Chloride/Water 50 ml @ 50 mls/hr Q1H IV Last administered on 01/09/19at 20:51; Start 01/09/19 at 18:00; Stop 01/09/19 at 21:59; Status DC Potassium Phosphate 13.6 mmol/Dextrose 254.5333 ml @ 62.646 m... 1X ONCE IV Last administered on 01/09/19at 21:49; Start 01/09/19 at 22:00; Stop 01/10/19 at 08:03; Status DC Potassium Chloride/Water 50 ml @ 50 mls/hr Q1H IV Last administered on 01/10/19at 11:41; Start 01/10/19 at 08:00; Stop 01/10/19 at 11:59; Status DC Sodium Phosphate 40 mmol/Dextrose 263.3333 ml @ 62.5 mls/hr 1X ONCE IV ; Start 01/10/19 at 08:00; Stop 01/10/19 at 08:49; Status DC Potassium Phosphate 12 mmol/ Sodium Chloride 254 ml @ 125 mls/hr Q2H IV Last administered on 01/10/19at 15:24; Start 01/10/19 at 08:00; Stop 01/10/19 at 11:59; Status DC Potassium Chloride 40 meq/ Potassium Acetate 40 meq/Potassium Phosphate 15 mmol/ Magnesium Sulfate 10 meq/Calcium Gluconate 10 meq/ Multivitamins 10 ml/Chromium/ Copper/Manganese/ Seleni/Zn 1 ml/ Total Parenteral Nutrition/Amino Acids/D extrose/ Fat Emulsion Intravenous 1,512 ml @ 63 mls/hr TPN CONT IV Last administered on 01/10/19at 22:08; Start 01/10/19 at 22:00; Stop 01/11/19 at 21:59; Status DC Pantoprazole Sodium (PROTONIX VIAL for IV PUSH) 40 mg BIDAC IVP Last administered on 01/14/19at 08:54; Start 01/10/19 at 16:30; Stop 01/14/19 at 11:38; Status DC Sodium Chloride 250 ml @ 250 mls/hr 1X ONCE IV Last administered on 01/10/19at 19:30; Start 01/10/19 at 19:30; Stop 01/10/19 at 20:29; Status DC Lorazepam (Ativan Inj) 1 mg PRN Q6HRS PRN IV ANXIETY / AGITATION Last administered on 01/10/19at 23:23; Start 01/10/19 at 23:15 Potassium Chloride 40 meq/ Potassium Acetate 40 meq/Potassium Phosphate 15 mmol/ Magnesium Sulfate 10 meq/Calcium Gluconate 10 meq/ Multivitamins 10 ml/Chromium/ Copper/Manganese/ Seleni/Zn 1 ml/ Total Parenteral Nutrition/Amino Acids/Dextrose/ Fat Emulsion Intravenous 1,512 ml @ 63 mls/hr TPN CONT IV Last administered on 01/11/19at 21:34; Start 01/11/19 at 22:00; Stop 01/12/19 at 21:59; Status DC Morphine Sulfate (Morphine Sulfate) 2 mg 1X ONCE IV Last administered on 01/12/19at 10:40; Start 01/12/19 at 09:30; Stop 01/12/19 at 09:31; Status DC Potassium Phosphate 13.6 mmol/Dextrose 104.5333 ml @ 52.267 m... Q2H IV Last administered on 01/12/19at 13:22; Start 01/12/19 at 11:30; Stop 01/12/19 at 15:29; Status DC Vancomycin HCl (Vanco Per Pharmacy) 1 each PRN DAILY PRN MC SEE COMMENTS Last administered on 01/14/19at 09:03; Start 01/12/19 at 11:15 Vancomycin HCl 2 gm/Sodium Chloride 500 ml @ 250 mls/hr ONCE ONCE IV Last administered on 01/12/19at 13:22; Start 01/12/19 at 12:00; Stop 01/12/19 at 13:59; Status DC Potassium Chloride 40 meq/ Potassium Acetate 40 meq/Potassium Phosphate 15 mmol/ Magnesium Sulfate 10 meq/Calcium Gluconate 10 meq/ Multivitamins 10 ml/Chromium/ Copper/Manganese/ Seleni/Zn 1 ml/ Total Parenteral Nutrition/Amino Acids/Dextrose/ Fat Emulsion Intravenous 1,512 ml @ 63 mls/hr TPN CONT IV Last administered on 01/12/19at 21:48; Start 01/12/19 at 22:00; Stop 01/13/19 at 21:59; Status DC Vancomycin HCl 2 gm/Sodium Chloride 500 ml @ 250 mls/hr 1X ONCE IV Last administered on 01/13/19at 08:27; Start 01/13/19 at 08:00; Stop 01/13/19 at 09:59; Status DC Vancomycin HCl 1.25 gm/Sodium Chloride 250 ml @ 167 mls/hr Q12H IV Last administered on 01/14/19at 08:54; Start 01/13/19 at 21:00 Vancomycin HCl (Vancomycin Trough Level) 1 each 1X ONCE MC ; Start 01/14/19 at 20:30; Stop 01/14/19 at 20:31 Lactobacillus Rhamnosus (Culturelle) 1 cap BID PO ; Start 01/14/19 at 21:00 Pantoprazole Sodium (Protonix) 40 mg DAILYAC PO ; Start 01/15/19 at 07:30 Dextrose/Sodium Chloride 1,000 ml @ 100 mls/hr Q10H IV Last administered on 01/14/19at 12:00; Start 01/14/19 at 14:00 Active Scripts Active Reported Omeprazole 40 Mg Capsule. 1 Cap PO DAILY Vitals/I & O Vital Sign - Last 24 Hours 01/13/19 01/13/19 01/13/19 01/14/19 15:00 20:00 20:00 00:00 Temp 98.5 98.6 98.6 98.5 98.6 98.6 Pulse 94 90 85 Resp 26 20 20 B/P (MAP) 122/70 (87) 104/59 (74) 93/56 (68) Pulse Ox 96 95 96 O2 Delivery Room Air Room Air Room Air Room Air 01/14/19 01/14/19 01/14/19 01/14/19 04:00 08:00 08:00 09:29 Temp 98.8 98.1 98.8 98.1 Pulse 88 92 Resp 21 24 B/P (MAP) 96/59 (71) 118/72 (87) Pulse Ox 94 96 94 O2 Delivery Room Air Room Air Room Air Room Air 01/14/19 01/14/19 12:00 12:22 Temp 98.4 98.4 Pulse 87 Resp 24 B/P (MAP) 96/60 (72) Pulse Ox 96 94 O2 Delivery Room Air Room Air Intake and Output 01/13/19 01/13/19 01/14/19 14:59 22:59 06:59 Intake Total 1826 ml 270 ml 1464 ml Output Total 420 ml 335 ml 270 ml Balance 1406 ml -65 ml 1194 ml KINSEY FRANCO MD Jan 14, 2019 14:41
--- NOTE | 2019-01-14 15:25 | NUR ---
SS following up with discharge planning. Pt is currently on room air. PT/OT recommending acute rehabilitation. Pt is self pay pt and has no rehabilitation benefits at this time. [facility]CF[facility] following for self pay status. SS will continue to follow for discharge planning.
--- NOTE | 2019-01-14 15:56 | PDOC ---
PROGRESS NOTES Subjective Subjective HPI - f/u of Thrombocytopenia ROS - no bleed Objective Objective Vital Signs Date Time Temp Pulse Resp B/P (MAP) Pulse Ox O2 Delivery O2 Flow Rate FiO2 01/14/19 12:22 94 Room Air 01/14/19 12:00 98.4 87 24 96/60 (72) 98.4 01/12/19 03:00 15.0 Intake and Output 01/14/19 07:00 Intake Total 3510 ml Output Total 975 ml Balance 2535 ml Intake Oral 1080 ml IV Total 2430 ml Output Urine Total 975 ml # Bowel Movements 2 Physical Exam Heart: Normal S1, Normal S2 General: Alert, No acute distress Lungs: Clear to auscultation Assessment Assessment Problems Medical Problems: (1) Alcoholic liver disease Status: Acute (2) Cholelithiasis Status: Acute (3) Colitis Status: Acute (4) Jaundice Status: Acute (5) Pancreatitis Status: Acute (6) Thrombocytopenia Status: Acute Imp/Plan: 1. Thrombocytopenia. Secondary to liver dysfunction. Improved a little from admission. Plt 60. 2. Coagulopathy from liver failure. Given vit k 3. ?hepatic mass. If he improves would eventually get an MRI to further evaluate, but if not would not pursue 4. Liver failure. Most likely secondary to etoh 5. Colitis. Management per primary team 6. Anemia, Hb 8.2. monitor cbc. Comment Review of Relevant I have reviewed the following items pierre (where applicable) has been applied. Labs Laboratory Tests Test 01/13/19 06:30 01/14/19 04:51 Prothrombin Time 21.9 SEC (11.7-14.0) 20.8 SEC (11.7-14.0) Prothromb Time International Ratio 1.9 (0.8-1.1) 1.8 (0.8-1.1) Sodium Level 135 mmol/L (136-145) 132 mmol/L (136-145) Potassium Level 4.1 mmol/L (3.5-5.1) 4.0 mmol/L (3.5-5.1) Chloride Level 106 mmol/L (98-107) 103 mmol/L (98-107) Carbon Dioxide Level 19 mmol/L (21-32) 19 mmol/L (21-32) Anion Gap 10 (6-14) 10 (6-14) Blood Urea Nitrogen 27 mg/dL (8-26) 37 mg/dL (8-26) Creatinine 1.0 mg/dL (0.7-1.3) 1.4 mg/dL (0.7-1.3) Estimated GFR (Cockcroft-Gault) 81.2 55.1 BUN/Creatinine Ratio 27 (6-20) Glucose Level 138 mg/dL (70-99) 101 mg/dL (70-99) Calcium Level 7.6 mg/dL (8.5-10.1) 7.2 mg/dL (8.5-10.1) Phosphorus Level 3.2 mg/dL (2.6-4.7) 3.6 mg/dL (2.6-4.7) Magnesium Level 2.2 mg/dL (1.8-2.4) 2.1 mg/dL (1.8-2.4) Total Bilirubin 21.9 mg/dL (0.2-1.0) Aspartate Amino Transf (AST/SGOT) 98 U/L (15-37) Alanine Aminotransferase (ALT/SGPT) 91 U/L (16-63) Alkaline Phosphatase 101 U/L (46-116) Total Protein 5.0 g/dL (6.4-8.2) Albumin 1.5 g/dL (3.4-5.0) Albumin/Globulin Ratio 0.4 (1.0-1.7) White Blood Count 17.6 x10^3/uL (4.0-11.0) Red Blood Count 2.28 x10^6/uL (4.30-5.70) Hemoglobin 8.2 g/dL (13.0-17.5) Hematocrit 24.5 % (39.0-53.0) Mean Corpuscular Volume 108 fL (79-100) Mean Corpuscular Hemoglobin 36 pg (25-35) Mean Corpuscular Hemoglobin Concent 33 g/dL (31-37) Red Cell Distribution Width 25.0 % (11.5-14.5) Platelet Count 60 x10^3/uL (140-400) Neutrophils (%) (Auto) 81 % (31-73) Lymphocytes (%) (Auto) 9 % (24-48) Monocytes (%) (Auto) 8 % (0-9) Eosinophils (%) (Auto) 2 % (0-3) Basophils (%) (Auto) 1 % (0-3) Neutrophils # (Auto) 14.2 x10^3/uL (1.8-7.7) Lymphocytes # (Auto) 1.6 x10^3/uL (1.0-4.8) Monocytes # (Auto) 1.3 x10^3/uL (0.0-1.1) Eosinophils # (Auto) 0.3 x10^3/uL (0.0-0.7) Basophils # (Auto) 0.2 x10^3/uL (0.0-0.2) Laboratory Tests Test 01/14/19 04:51 White Blood Count 17.6 x10^3/uL (4.0-11.0) Red Blood Count 2.28 x10^6/uL (4.30-5.70) Hemoglobin 8.2 g/dL (13.0-17.5) Hematocrit 24.5 % (39.0-53.0) Mean Corpuscular Volume 108 fL (79-100) Mean Corpuscular Hemoglobin 36 pg (25-35) Mean Corpuscular Hemoglobin Concent 33 g/dL (31-37) Red Cell Distribution Width 25.0 % (11.5-14.5) Platelet Count 60 x10^3/uL (140-400) Neutrophils (%) (Auto) 81 % (31-73) Lymphocytes (%) (Auto) 9 % (24-48) Monocytes (%) (Auto) 8 % (0-9) Eosinophils (%) (Auto) 2 % (0-3) Basophils (%) (Auto) 1 % (0-3) Neutrophils # (Auto) 14.2 x10^3/uL (1.8-7.7) Lymphocytes # (Auto) 1.6 x10^3/uL (1.0-4.8) Monocytes # (Auto) 1.3 x10^3/uL (0.0-1.1) Eosinophils # (Auto) 0.3 x10^3/uL (0.0-0.7) Basophils # (Auto) 0.2 x10^3/uL (0.0-0.2) Prothrombin Time 20.8 SEC (11.7-14.0) Prothromb Time International Ratio 1.8 (0.8-1.1) Sodium Level 132 mmol/L (136-145) Potassium Level 4.0 mmol/L (3.5-5.1) Chloride Level 103 mmol/L (98-107) Carbon Dioxide Level 19 mmol/L (21-32) Anion Gap 10 (6-14) Blood Urea Nitrogen 37 mg/dL (8-26) Creatinine 1.4 mg/dL (0.7-1.3) Estimated GFR (Cockcroft-Gault) 55.1 Glucose Level 101 mg/dL (70-99) Calcium Level 7.2 mg/dL (8.5-10.1) Phosphorus Level 3.6 mg/dL (2.6-4.7) Magnesium Level 2.1 mg/dL (1.8-2.4) Microbiology 01/12/19 Blood Culture - Preliminary, Resulted NO GROWTH AFTER 2 DAYS 01/04/19 Urine Culture - Final, Complete 01/04/19 Urine Culture Result 1 (DONALD) - Final, Complete Medications Current Medications Iohexol (Omnipaque 240 Mg/ml) 30 ml 1X ONCE PO Last administered on 01/04/19at 15:15; Start 01/04/19 at 15:15; Stop 01/04/19 at 15:17; Status DC Iohexol (Omnipaque 300 Mg/ml) 75 ml 1X ONCE IV Last administered on 01/04/19at 16:20; Start 01/04/19 at 15:15; Stop 01/04/19 at 15:17; Status DC Info (CONTRAST GIVEN -- Rx MONITORING) 1 each PRN DAILY PRN MC SEE COMMENTS; Start 01/04/19 at 15:30; Stop 01/06/19 at 15:29; Status DC Multivitamins 10 ml/Thiamine HCl 100 mg/Folic Acid 1 mg/Sodium Chloride 1,011.2 ml @ 100 mls/ hr DAILY IV Last administered on 01/08/19at 08:12; Start 01/04/19 at 18:00; Stop 01/08/19 at 19:07; Status DC Chlordiazepoxide (Librium) 50 mg PRN Q1HR PRN PO For CIWA 8-14 Last administered on 01/04/19at 18:17; Start 01/04/19 at 17:45 Chlordiazepoxide (Librium) 100 mg PRN Q1HR PRN PO For CIWA 15 or greater Last administered on 01/05/19at 06:27; Start 01/04/19 at 17:45 Lorazepam (Ativan) 4 mg PRN Q1HR PRN PO For CIWA 8-14 Last administered on 01/04/19at 18:17; Start 01/04/19 at 17:45; Stop 01/10/19 at 07:34; Status DC Lorazepam (Ativan) 8 mg PRN Q1HR PRN PO For CIWA 15 or greater; Start 01/04/19 at 17:45; Stop 01/10/19 at 07:34; Status DC Haloperidol Lactate (Haldol Inj) 5 mg PRN Q4HRS PRN IVP Hallucinatns,Confusn,Delirium Last administered on 01/13/19at 11:22; Start 01/04/19 at 17:45 Diphenhydramine HCl (Benadryl) 25 mg PRN Q15MIN PRN IVP EPS symptoms 2'Haldol admin; Start 01/04/19 at 17:45 Clonidine HCl (Catapres) 0.1 mg PRN Q1HR PRN PO SBP > 180 or DBP > 100, MRX3 Last administered on 01/08/19at 07:18; Start 01/04/19 at 17:45; Stop 01/08/19 at 08:58; Status DC Lorazepam (Ativan Inj) 2 mg PRN Q1HR PRN IV For CIWA 8-14 Last administered on 01/11/19at 22:50; Start 01/04/19 at 19:15 Lorazepam (Ativan Inj) 4 mg PRN Q1HR PRN IV For CIWA 15 or greater Last administered on 01/05/19at 06:28; Start 01/04/19 at 19:15 Lorazepam (Ativan Inj) 2 mg PRN Q15MIN PRN IV SEE COMMENTS; Start 01/04/19 at 19:15; Status UNV Lorazepam (Ativan Inj) 4 mg PRN Q15MIN PRN IV SEE COMMENTS; Start 01/04/19 at 19:15; Status UNV Ondansetron HCl (Zofran) 4 mg PRN Q6HRS PRN IV NAUSEA/VOMITING Last administered on 01/04/19at 19:34; Start 01/04/19 at 19:30 Pantoprazole Sodium (PROTONIX VIAL for IV PUSH) 40 mg DAILYAC IVP Last administered on 01/06/19at 10:36; Start 01/06/19 at 10:00; Stop 01/06/19 at 12:17; Status DC Phytonadione (Vitamin K Ampule) 10 mg 1X ONCE SQ Last administered on 01/06/19at 10:36; Start 01/06/19 at 10:15; Stop 01/06/19 at 10:16; Status DC Piperacillin Sod/ Tazobactam Sod (Zosyn Per Pharmacy) 1 each PRN DAILY PRN MC SEE COMMENTS; Start 01/06/19 at 10:30 Piperacillin Sod/ Tazobactam Sod 3.375 gm/Sodium Chloride 50 ml @ 100 mls/hr Q6HRS IV Last administered on 01/14/19at 14:27; Start 01/06/19 at 11:00 Lactulose (Lactulose) 30 gm Q6HRS NG Last administered on 01/09/19at 05:53; Start 01/06/19 at 12:00; Stop 01/09/19 at 10:51; Status DC Metronidazole 100 ml @ 100 mls/hr Q8HRS IV Last administered on 01/09/19at 05:53; Start 01/06/19 at 14:00; Stop 01/09/19 at 07:19; Status DC Pantoprazole Sodium 80 mg/ Sodium Chloride 100 ml @ 10 mls/hr Q10H IV Last administered on 01/10/19at 02:31; Start 01/06/19 at 12:30; Stop 01/10/19 at 12:11; Status DC Octreotide Acetate 500 mcg/ Sodium Chloride 101 ml @ 0 mls/hr CONT PRN IV SEE I/O RECORD Last administered on 01/08/19at 06:08; Start 01/06/19 at 12:15; Stop 01/08/19 at 10:48; Status DC Norepinephrine Bitartrate 250 ml @ 14.235 mls/ hr CONT PRN IV SEE I/O RECORD; Start 01/06/19 at 20:15; Stop 01/13/19 at 13:28; Status DC Albumin Human 100 ml @ 100 mls/hr 1X ONCE IV Last administered on 01/06/19at 21:30; Start 01/06/19 at 20:15; Stop 01/06/19 at 21:14; Status DC Phytonadione (Vitamin K Ampule) 10 mg 1X ONCE SQ Last administered on 01/07/19at 13:04; Start 01/07/19 at 11:45; Stop 01/07/19 at 11:46; Status DC Albuterol/ Ipratropium (Duoneb) 3 ml RTQID NEB Last administered on 01/14/19at 12:22; Start 01/07/19 at 16:00 Sodium Chloride 1,000 ml @ 75 mls/hr [id number] IV Last administered on 01/08/19at 23:47; Start 01/08/19 at 06:00; Stop 01/09/19 at 10:19; Status DC Labetalol HCl (Normodyne Iv Push) 10 mg PRN Q4HRS PRN IVP HYPERTENSION; Start 01/08/19 at 09:00 Potassium Bicarbonate (Potassium Effervescent Tablet) 40 meq 1X ONCE PEG Last administered on 01/08/19at 12:24; Start 01/08/19 at 11:30; Stop 01/08/19 at 11:33; Status DC Potassium Bicarbonate (Potassium Effervescent Tablet) 40 meq 1X ONCE PEG Last administered on 01/08/19at 16:06; Start 01/08/19 at 16:00; Stop 01/08/19 at 16:01; Status DC Potassium Bicarbonate (Potassium Effervescent Tablet) 80 meq 1X ONCE PEG Last administered on 01/09/19at 06:58; Start 01/09/19 at 06:15; Stop 01/09/19 at 06:21; Status DC Artificial Tears (Artificial Tears) 1 drop PRN Q15MIN PRN OU DRY EYE Last administered on 01/09/19at 10:11; Start 01/09/19 at 10:00 Dextrose/Sodium Chloride 1,000 ml @ 75 mls/hr [id number] IV Last administered on 01/09/19at 11:03; Start 01/09/19 at 10:30; Stop 01/09/19 at 12:20; Status DC Potassium Chloride/Water 50 ml @ 50 mls/hr Q1H IV ; Start 01/09/19 at 10:30; Stop 01/09/19 at 12:29; Status UNV Potassium Chloride/Water 100 ml @ 100 mls/hr Q1H IV ; Start 01/09/19 at 11:00; Stop 01/09/19 at 11:00; Status DC Lactulose (Lactulose) 30 gm BID NG Last administered on 01/09/19at 20:52; Start 01/09/19 at 21:00; Stop 01/10/19 at 13:57; Status DC Dextrose 1,000 ml @ 100 mls/hr Q10H IV Last administered on 01/13/19at 11:22; Start 01/09/19 at 12:30; Stop 01/14/19 at 13:58; Status DC Info (Tpn Per Pharmacy) 1 each PRN DAILY PRN MC SEE COMMENTS Last administered on 01/12/19at 13:31; Start 01/09/19 at 15:15; Stop 01/13/19 at 13:27; Status DC Potassium Chloride 50 meq/ Potassium Phosphate 13.6 mmol/Magnesium Sulfate 10 meq/ Calcium Gluconate 10 meq/ Multivitamins 10 ml/Chromium/ Copper/Manganese/ Seleni/Zn 1 ml/ Total Parenteral Nutrition/Amino Acids/Dextrose/ Fat Emulsion Intravenous 1,512 ml @ 63 mls/hr TPN CONT IV Last administered on 01/09/19at 21:41; Start 01/09/19 at 22:00; Stop 01/10/19 at 21:59; Status DC Potassium Chloride/Water 50 ml @ 50 mls/hr Q1H IV Last administered on 01/09/19at 20:51; Start 01/09/19 at 18:00; Stop 01/09/19 at 21:59; Status DC Potassium Phosphate 13.6 mmol/Dextrose 254.5333 ml @ 62.646 m... 1X ONCE IV Last administered on 01/09/19at 21:49; Start 01/09/19 at 22:00; Stop 01/10/19 at 08:03; Status DC Potassium Chloride/Water 50 ml @ 50 mls/hr Q1H IV Last administered on 01/10/19at 11:41; Start 01/10/19 at 08:00; Stop 01/10/19 at 11:59; Status DC Sodium Phosphate 40 mmol/Dextrose 263.3333 ml @ 62.5 mls/hr 1X ONCE IV ; Start 01/10/19 at 08:00; Stop 01/10/19 at 08:49; Status DC Potassium Phosphate 12 mmol/ Sodium Chloride 254 ml @ 125 mls/hr Q2H IV Last administered on 01/10/19 15:24; Start 01/10/19 at 08:00; Stop 01/10/19 at 11:59; Status DC Potassium Chloride 40 meq/ Potassium Acetate 40 meq/Potassium Phosphate 15 mmol/ Magnesium Sulfate 10 meq/Calcium Gluconate 10 meq/ Multivitamins 10 ml/Chromium/ Copper/Manganese/ Seleni/Zn 1 ml/ Total Parenteral Nutrition/Amino Acids/Dextrose/ Fat Emulsion Intravenous 1,512 ml @ 63 mls/hr TPN CONT IV Last administered on 01/10/19 22:08; Start 01/10/19 at 22:00; Stop 01/11/19 at 21:59; Status DC Pantoprazole Sodium (PROTONIX VIAL for IV PUSH) 40 mg BIDAC IVP Last administered on 01/14/19 08:54; Start 01/10/19 at 16:30; Stop 01/14/19 at 11:38; Status DC Sodium Chloride 250 ml @ 250 mls/hr 1X ONCE IV Last administered on 01/10/19at 19:30; Start 01/10/19 at 19:30; Stop 01/10/19 at 20:29; Status DC Lorazepam (Ativan Inj) 1 mg PRN Q6HRS PRN IV ANXIETY / AGITATION Last administered on 01/10/19at 23:23; Start 01/10/19 at 23:15 Potassium Chloride 40 meq/ Potassium Acetate 40 meq/Potassium Phosphate 15 mmol/ Magnesium Sulfate 10 meq/Calcium Gluconate 10 meq/ Multivitamins 10 ml/Chromium/ Copper/Manganese/ Seleni/Zn 1 ml/ Total Parenteral Nutrition/Amino Acids/Dextrose/ Fat Emulsion Intravenous 1,512 ml @ 63 mls/hr TPN CONT IV Last administered on 01/11/19at 21:34; Start 01/11/19 at 22:00; Stop 01/12/19 at 21:59; Status DC Morphine Sulfate (Morphine Sulfate) 2 mg 1X ONCE IV Last administered on 01/12/19at 10:40; Start 01/12/19 at 09:30; Stop 01/12/19 at 09:31; Status DC Potassium Phosphate 13.6 mmol/Dextrose 104.5333 ml @ 52.267 m... Q2H IV Last administered on 01/12/19at 13:22; Start 01/12/19 at 11:30; Stop 01/12/19 at 15:29; Status DC Vancomycin HCl (Vanco Per Pharmacy) 1 each PRN DAILY PRN MC SEE COMMENTS Last administered on 01/14/19at 09:03; Start 01/12/19 at 11:15 Vancomycin HCl 2 gm/Sodium Chloride 500 ml @ 250 mls/hr ONCE ONCE IV Last administered on 01/12/19at 13:22; Start 01/12/19 at 12:00; Stop 01/12/19 at 13:59; Status DC Potassium Chloride 40 meq/ Potassium Acetate 40 meq/Potassium Phosphate 15 mmol/ Magnesium Sulfate 10 meq/Calcium Gluconate 10 meq/ Multivitamins 10 ml/Chromium/ Copper/Manganese/ Seleni/Zn 1 ml/ Total Parenteral Nutrition/Amino Acids/Dextrose/ Fat Emulsion Intravenous 1,512 ml @ 63 mls/hr TPN CONT IV Last administered on 01/12/19at 21:48; Start 01/12/19 at 22:00; Stop 01/13/19 at 21:59; Status DC Vancomycin HCl 2 gm/Sodium Chloride 500 ml @ 250 mls/hr 1X ONCE IV Last administered on 01/13/19at 08:27; Start 01/13/19 at 08:00; Stop 01/13/19 at 09:59; Status DC Vancomycin HCl 1.25 gm/Sodium Chloride 250 ml @ 167 mls/hr Q12H IV Last administered on 01/14/19at 08:54; Start 01/13/19 at 21:00 Vancomycin HCl (Vancomycin Trough Level) 1 each 1X ONCE MC ; Start 01/14/19 at 20:30; Stop 01/14/19 at 20:31 Lactobacillus Rhamnosus (Culturelle) 1 cap BID PO ; Start 01/14/19 at 21:00 Pantoprazole Sodium (Protonix) 40 mg DAILYAC PO ; Start 01/15/19 at 07:30 Dextrose/Sodium Chloride 1,000 ml @ 100 mls/hr Q10H IV Last administered on 01/14/19at 12:00; Start 01/14/19 at 14:00 Active Scripts Active Reported Omeprazole 40 Mg Capsule.dr 1 Cap PO DAILY Vitals/I & O Vital Sign - Last 24 Hours 01/13/19 01/13/19 01/14/19 01/14/19 20:00 20:00 00:00 04:00 Temp 98.6 98.6 98.8 98.6 98.6 98.8 Pulse 90 85 88 Resp 20 21 B/P (MAP) 104/59 (74) 93/56 (68) 96/59 (71) Pulse Ox 95 96 94 O2 Delivery Room Air Room Air Room Air Room Air 01/14/19 01/14/19 01/14/19 01/14/19 08:00 08:00 09:29 12:00 Temp 98.1 98.4 98.1 98.4 Pulse 92 87 Resp 24 24 B/P (MAP) 118/72 (87) 96/60 (72) Pulse Ox 96 94 96 O2 Delivery Room Air Room Air Room Air Room Air 01/14/19 12:22 Pulse Ox 94 O2 Delivery Room Air Intake and Output 01/13/19 01/13/19 01/14/19 15:00 23:00 07:00 Intake Total 1776 ml 270 ml 1464 ml Output Total 370 ml 365 ml 240 ml Balance 1406 ml -95 ml 1224 ml ISHAAN GIFFORD MD Jan 14, 2019 15:56
[2019-01-14] MEDS: LACTOBACILLUS RHAMNOSUS GG 1 CAPSULE. PO SCH (22:23)
[2019-01-14 23:02] LABS: VANC TR 22.4 mcg/mL (10.0-20.0)
[2019-01-15] MEDS: PIPERACILLIN/TAZOBACTAM 3.375 GM in IV NORMAL SALINE 50ML 50 ML IV SCH ×4 (00:29→18:00)
[2019-01-15] MEDS: IV DEXTROSE 5% - 0.9 % NACL 1,000 ML IV SCH ×3 (00:30→21:20)
[2019-01-15 03:00] VITALS: BP 120/68
[2019-01-15] MEDS: VANCOMYCIN PER PHARMACY MC PRN (03:09)
--- NOTE | 2019-01-15 03:09 | NUR ---
Pharmacy Vancomycin Dosing Note S:Consulted to monitor and dose vancomycin started 01/13/19. O:NILAM PIRES is a 43 year old M with Empiric . Height: 5 feet, 7 inches Weight: 86.807473 kg [place] Body Weight: 66.10 Adjusted Body Weight: 71.06 Dosing Weight: Actual Other Antibiotics: ZOSYN LABS: Last BUN: 37 Last Creatinine: 1.4 Creatinine Clearance: 70 mL/min Last WBC: 17.6 Last Procalcitonin: - Tmax (past 24 hours): 100.1 Microbiology: BC/UR NEG I/O: 3560/1025 Drug Levels: Last Trough level: 22.4 on 01/14/19 at 2030 Last dose given 01/13/19 at 0830 Vancomycin Dosing: Loading Dose: 2000 mg x1 Dosing Weight: Actual Target Trough: 15-20 A: Based on: TROUGH P: 1. Begin Vancomycin 1000 mg IV q12h 2. Follow up Trough level on 01/16/19 at 1730 3. Pharmacy will continue to monitor, follow and adjust therapy as needed. MARLO GREENE RPH, 01/15/19 0309 Signed: 01/15/19 at 0310 by MARLO GREENE RPH PHA
[2019-01-15 05:51] LABS: BASO # 0.1 x10^3/uL (0.0-0.2); BASO % 0 % (0-3); EOS # 0.3 x10^3/uL (0.0-0.7); EOS % 2 % (0-3); HEMATOCRIT 24.4 % (39.0-53.0); HEMOGLOBIN 8.3 g/dL (13.0-17.5); LYMPH % 5 % (24-48); MEAN CORPUSCULAR HEMOGLOBIN 37 pg (25-35); MEAN CORPUSCULAR HGB CONC 34 g/dL (31-37); MEAN CORPUSCULAR VOLUME 108 fL (79-100); MONO # 1.2 x10^3/uL (0.0-1.1); MONO % 6 % (0-9); NEUT # 16.7 x10^3/uL (1.8-7.7); NEUT % 87 % (31-73); PLATELET COUNT 76 x10^3/uL (140-400); RED BLOOD COUNT 2.27 x10^6/uL (4.30-5.70); RED CELL DISTRIBUTION WIDTH 25.5 % (11.5-14.5); WHITE BLOOD COUNT 19.3 x10^3/uL (4.0-11.0)
[2019-01-15] MEDS ORDERED: VANCOMYCIN 1 GM in IV NORMAL SALINE 250ML 250 ML IV SCH (06:00)
[2019-01-15 06:12] LABS: CREATININE 1.9 mg/dL (0.7-1.3); GFR 38.7; MAGNESIUM 2.2 mg/dL (1.8-2.4); PHOSPHORUS 5.2 mg/dL (2.6-4.7); POTASSIUM 3.9 mmol/L (3.5-5.1)
[2019-01-15] MEDS: IPRATRPIUM/ALBUTEROL 0.5/2.5MG 3 ML NEBU. NEB SCH ×4 (07:13→20:18)
[2019-01-15 08:17] VITALS: BP 103/67
[2019-01-15] MEDS: PANTOPRAZOLE 40 MG TABLET.DR. PO SCH (08:21)
[2019-01-15] MEDS: LACTOBACILLUS RHAMNOSUS GG 1 CAPSULE. PO SCH ×2 (08:21→21:20)
--- NOTE | 2019-01-15 08:57 | PDOC ---
Infectious Disease Note Subjective Subjective 1:1 observation for confusion and restlessness No fevers last 24 hours Vital Sign Vital Signs Vital Signs Date Time Temp Pulse Resp B/P (MAP) Pulse Ox O2 Delivery O2 Flow Rate FiO2 01/15/19 08:17 97.6 85 20 103/67 (79) 96 Room Air 97.6 Physical Exam PHYSICAL EXAM GENERAL: Propped up in bed, awake, weak appearing, markedly jaundiced HEENT: Pupils equally round and reactive. Icterus. Oral cavity dry NECK: Supple. LUNGS: Decreased in bases HEART: S1 and S2 regular ABDOMEN: Distended, soft, no grimace or guarding to palpation. Bowel sounds present. GENITOURINARY: Indwelling Galdamez in place. EXTREMITIES: Generalized edema. No cyanosis SKIN: Warm to touch. Multiple ecchymoses, especially lower extremities. NEUROLOGIC: Awake, confused and follows simple commands RIJ -clean Labs Lab Laboratory Tests Test 01/14/19 22:25 01/15/19 05:20 Vancomycin Level Trough 22.4 mcg/mL (10.0-20.0) Vancomycin Last Dose Date 01/14/19 Vancomycin Last Dose Time 0900 White Blood Count 19.3 x10^3/uL (4.0-11.0) Red Blood Count 2.27 x10^6/uL (4.30-5.70) Hemoglobin 8.3 g/dL (13.0-17.5) Hematocrit 24.4 % (39.0-53.0) Mean Corpuscular Volume 108 fL (79-100) Mean Corpuscular Hemoglobin 37 pg (25-35) Mean Corpuscular Hemoglobin Concent 34 g/dL (31-37) Red Cell Distribution Width 25.5 % (11.5-14.5) Platelet Count 76 x10^3/uL (140-400) Neutrophils (%) (Auto) 87 % (31-73) Lymphocytes (%) (Auto) 5 % (24-48) Monocytes (%) (Auto) 6 % (0-9) Eosinophils (%) (Auto) 2 % (0-3) Basophils (%) (Auto) 0 % (0-3) Neutrophils # (Auto) 16.7 x10^3/uL (1.8-7.7) Lymphocytes # (Auto) 1.0 x10^3/uL (1.0-4.8) Monocytes # (Auto) 1.2 x10^3/uL (0.0-1.1) Eosinophils # (Auto) 0.3 x10^3/uL (0.0-0.7) Basophils # (Auto) 0.1 x10^3/uL (0.0-0.2) Sodium Level 132 mmol/L (136-145) Potassium Level 3.9 mmol/L (3.5-5.1) Chloride Level 102 mmol/L (98-107) Carbon Dioxide Level 18 mmol/L (21-32) Anion Gap 12 (6-14) Blood Urea Nitrogen 47 mg/dL (8-26) Creatinine 1.9 mg/dL (0.7-1.3) Estimated GFR (Cockcroft-Gault) 38.7 Glucose Level 111 mg/dL (70-99) Calcium Level 7.0 mg/dL (8.5-10.1) Phosphorus Level 5.2 mg/dL (2.6-4.7) Magnesium Level 2.2 mg/dL (1.8-2.4) Micro 01/12/19 Blood Culture NO GROWTH AFTER 2 DAYS Objective Assessment Fever pattern improving, BC neg so far Leukocytosis ? reactive, could be from etoh hepatitis - treading up Thrombocytopenia - trending ? liver disease possible med Transaminitis - now on TPN ? 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 The chart was reviewed. The case was discussed. Agree with the plan of care. NABIL MATHIS APRN Jan 15, 2019 08:57 IVON WOODARD MD Jan 15, 2019 10:30
--- NOTE | 2019-01-15 09:22 | PDOC ---
PROGRESS NOTES Subjective Subjective HPI - f/u of Thrombocytopenia ROS - no bleed Objective Objective Vital Signs Date Time Temp Pulse Resp B/P (MAP) Pulse Ox O2 Delivery O2 Flow Rate FiO2 01/15/19 08:17 97.6 85 20 103/67 (79) 96 Room Air 97.6 01/12/19 03:00 15.0 Intake and Output 01/15/19 07:00 Intake Total 2450 ml Output Total 1400 ml Balance 1050 ml Intake Oral 350 ml IV Total 2100 ml Output Urine Total 1400 ml # Bowel Movements 1 Physical Exam General: Alert, No acute distress Neck: No JVD Assessment Assessment Problems Medical Problems: (1) Alcoholic liver disease Status: Acute (2) Cholelithiasis Status: Acute (3) Colitis Status: Acute (4) Jaundice Status: Acute (5) Pancreatitis Status: Acute (6) Thrombocytopenia Status: Acute Imp/Plan: 1. Thrombocytopenia. Secondary to liver dysfunction. Improved a little from admission. Plt 76. 2. Coagulopathy from liver failure. Given vit k 3. ?hepatic mass. Recommend MRI liver with contrast once the renal function improves. If cr does not improve, f/u with PCP for f/u MRI. 4. Liver failure. Most likely secondary to etoh 5. Colitis. Management per primary team 6. Anemia, Hb 8.3. monitor cbc. Comment Review of Relevant I have reviewed the following items pierre (where applicable) has been applied. Labs Laboratory Tests Test 01/14/19 04:51 01/14/19 22:25 01/15/19 05:20 White Blood Count 17.6 x10^3/uL (4.0-11.0) 19.3 x10^3/uL (4.0-11.0) Red Blood Count 2.28 x10^6/uL (4.30-5.70) 2.27 x10^6/uL (4.30-5.70) Hemoglobin 8.2 g/dL (13.0-17.5) 8.3 g/dL (13.0-17.5) Hematocrit 24.5 % (39.0-53.0) 24.4 % (39.0-53.0) Mean Corpuscular Volume 108 fL (79-100) 108 fL (79-100) Mean Corpuscular Hemoglobin 36 pg (25-35) 37 pg (25-35) Mean Corpuscular Hemoglobin Concent 33 g/dL (31-37) 34 g/dL (31-37) Red Cell Distribution Width 25.0 % (11.5-14.5) 25.5 % (11.5-14.5) Platelet Count 60 x10^3/uL (140-400) 76 x10^3/uL (140-400) Neutrophils (%) (Auto) 81 % (31-73) 87 % (31-73) Lymphocytes (%) (Auto) 9 % (24-48) 5 % (24-48) Monocytes (%) (Auto) 8 % (0-9) 6 % (0-9) Eosinophils (%) (Auto) 2 % (0-3) 2 % (0-3) Basophils (%) (Auto) 1 % (0-3) 0 % (0-3) Neutrophils # (Auto) 14.2 x10^3/uL (1.8-7.7) 16.7 x10^3/uL (1.8-7.7) Lymphocytes # (Auto) 1.6 x10^3/uL (1.0-4.8) 1.0 x10^3/uL (1.0-4.8) Monocytes # (Auto) 1.3 x10^3/uL (0.0-1.1) 1.2 x10^3/uL (0.0-1.1) Eosinophils # (Auto) 0.3 x10^3/uL (0.0-0.7) 0.3 x10^3/uL (0.0-0.7) Basophils # (Auto) 0.2 x10^3/uL (0.0-0.2) 0.1 x10^3/uL (0.0-0.2) Prothrombin Time 20.8 SEC (11.7-14.0) Prothromb Time International Ratio 1.8 (0.8-1.1) Sodium Level 132 mmol/L (136-145) 132 mmol/L (136-145) Potassium Level 4.0 mmol/L (3.5-5.1) 3.9 mmol/L (3.5-5.1) Chloride Level 103 mmol/L (98-107) 102 mmol/L (98-107) Carbon Dioxide Level 19 mmol/L (21-32) 18 mmol/L (21-32) Anion Gap 10 (6-14) 12 (6-14) Blood Urea Nitrogen 37 mg/dL (8-26) 47 mg/dL (8-26) Creatinine 1.4 mg/dL (0.7-1.3) 1.9 mg/dL (0.7-1.3) Estimated GFR (Cockcroft-Gault) 55.1 38.7 Glucose Level 101 mg/dL (70-99) 111 mg/dL (70-99) Calcium Level 7.2 mg/dL (8.5-10.1) 7.0 mg/dL (8.5-10.1) Phosphorus Level 3.6 mg/dL (2.6-4.7) 5.2 mg/dL (2.6-4.7) Magnesium Level 2.1 mg/dL (1.8-2.4) 2.2 mg/dL (1.8-2.4) Vancomycin Level Trough 22.4 mcg/mL (10.0-20.0) Vancomycin Last Dose Date 01/14/19 Vancomycin Last Dose Time 0900 Laboratory Tests Test 01/14/19 22:25 01/15/19 05:20 Vancomycin Level Trough 22.4 mcg/mL (10.0-20.0) Vancomycin Last Dose Date 01/14/19 Vancomycin Last Dose Time 0900 White Blood Count 19.3 x10^3/uL (4.0-11.0) Red Blood Count 2.27 x10^6/uL (4.30-5.70) Hemoglobin 8.3 g/dL (13.0-17.5) Hematocrit 24.4 % (39.0-53.0) Mean Corpuscular Volume 108 fL (79-100) Mean Corpuscular Hemoglobin 37 pg (25-35) Mean Corpuscular Hemoglobin Concent 34 g/dL (31-37) Red Cell Distribution Width 25.5 % (11.5-14.5) Platelet Count 76 x10^3/uL (140-400) Neutrophils (%) (Auto) 87 % (31-73) Lymphocytes (%) (Auto) 5 % (24-48) Monocytes (%) (Auto) 6 % (0-9) Eosinophils (%) (Auto) 2 % (0-3) Basophils (%) (Auto) 0 % (0-3) Neutrophils # (Auto) 16.7 x10^3/uL (1.8-7.7) Lymphocytes # (Auto) 1.0 x10^3/uL (1.0-4.8) Monocytes # (Auto) 1.2 x10^3/uL (0.0-1.1) Eosinophils # (Auto) 0.3 x10^3/uL (0.0-0.7) Basophils # (Auto) 0.1 x10^3/uL (0.0-0.2) Sodium Level 132 mmol/L (136-145) Potassium Level 3.9 mmol/L (3.5-5.1) Chloride Level 102 mmol/L (98-107) Carbon Dioxide Level 18 mmol/L (21-32) Anion Gap 12 (6-14) Blood Urea Nitrogen 47 mg/dL (8-26) Creatinine 1.9 mg/dL (0.7-1.3) Estimated GFR (Cockcroft-Gault) 38.7 Glucose Level 111 mg/dL (70-99) Calcium Level 7.0 mg/dL (8.5-10.1) Phosphorus Level 5.2 mg/dL (2.6-4.7) Magnesium Level 2.2 mg/dL (1.8-2.4) Microbiology 01/12/19 Blood Culture - Preliminary, Resulted NO GROWTH AFTER 2 DAYS 01/04/19 Urine Culture - Final, Complete 01/04/19 Urine Culture Result 1 (DONALD) - Final, Complete Medications Current Medications Iohexol (Omnipaque 240 Mg/ml) 30 ml 1X ONCE PO Last administered on 01/04/19at 15:15; Start 01/04/19 at 15:15; Stop 01/04/19 at 15:17; Status DC Iohexol (Omnipaque 300 Mg/ml) 75 ml 1X ONCE IV Last administered on 01/04/19at 16:20; Start 01/04/19 at 15:15; Stop 01/04/19 at 15:17; Status DC Info (CONTRAST GIVEN -- Rx MONITORING) 1 each PRN DAILY PRN MC SEE COMMENTS; Start 01/04/19 at 15:30; Stop 01/06/19 at 15:29; Status DC Multivitamins 10 ml/Thiamine HCl 100 mg/Folic Acid 1 mg/Sodium Chloride 1,011.2 ml @ 100 mls/ hr DAILY IV Last administered on 01/08/19at 08:12; Start 01/04/19 at 18:00; Stop 01/08/19 at 19:07; Status DC Chlordiazepoxide (Librium) 50 mg PRN Q1HR PRN PO For CIWA 8-14 Last administere d on 01/04/19at 18:17; Start 01/04/19 at 17:45 Chlordiazepoxide (Librium) 100 mg PRN Q1HR PRN PO For CIWA 15 or greater Last administered on 01/05/19at 06:27; Start 01/04/19 at 17:45 Lorazepam (Ativan) 4 mg PRN Q1HR PRN PO For CIWA 8-14 Last administered on 01/04/19at 18:17; Start 01/04/19 at 17:45; Stop 01/10/19 at 07:34; Status DC Lorazepam (Ativan) 8 mg PRN Q1HR PRN PO For CIWA 15 or greater; Start 01/04/19 at 17:45; Stop 01/10/19 at 07:34; Status DC Haloperidol Lactate (Haldol Inj) 5 mg PRN Q4HRS PRN IVP Hallucinatns,Confusn,Delirium Last administered on 01/13/19at 11:22; Start 01/04/19 at 17:45 Diphenhydramine HCl (Benadryl) 25 mg PRN Q15MIN PRN IVP EPS symptoms 2'Haldol admin; Start 01/04/19 at 17:45 Clonidine HCl (Catapres) 0.1 mg PRN Q1HR PRN PO SBP > 180 or DBP > 100, MRX3 Last administered on 01/08/19at 07:18; Start 01/04/19 at 17:45; Stop 01/08/19 at 08:58; Status DC Lorazepam (Ativan Inj) 2 mg PRN Q1HR PRN IV For CIWA 8-14 Last administered on 01/11/19at 22:50; Start 01/04/19 at 19:15 Lorazepam (Ativan Inj) 4 mg PRN Q1HR PRN IV For CIWA 15 or greater Last administered on 01/05/19at 06:28; Start 01/04/19 at 19:15 Lorazepam (Ativan Inj) 2 mg PRN Q15MIN PRN IV SEE COMMENTS; Start 01/04/19 at 19:15; Status UNV Lorazepam (Ativan Inj) 4 mg PRN Q15MIN PRN IV SEE COMMENTS; Start 01/04/19 at 19:15; Status UNV Ondansetron HCl (Zofran) 4 mg PRN Q6HRS PRN IV NAUSEA/VOMITING Last administered on 01/04/19at 19:34; Start 01/04/19 at 19:30 Pantoprazole Sodium (PROTONIX VIAL for IV PUSH) 40 mg DAILYAC IVP Last administered on 01/06/19at 10:36; Start 01/06/19 at 10:00; Stop 01/06/19 at 12:17; Status DC Phytonadione (Vitamin K Ampule) 10 mg 1X ONCE SQ Last administered on 01/06/19at 10:36; Start 01/06/19 at 10:15; Stop 01/06/19 at 10:16; Status DC Piperacillin Sod/ Tazobactam Sod (Zosyn Per Pharmacy) 1 each PRN DAILY PRN MC SEE COMMENTS; Start 01/06/19 at 10:30 Piperacillin Sod/ Tazobactam Sod 3.375 gm/Sodium Chloride 50 ml @ 100 mls/hr Q6HRS IV Last administered on 01/15/19at 05:28; Start 01/06/19 at 11:00 Lactulose (Lactulose) 30 gm Q6HRS NG Last administered on 01/09/19at 05:53; Start 01/06/19 at 12:00; Stop 01/09/19 at 10:51; Status DC Metronidazole 100 ml @ 100 mls/hr Q8HRS IV Last administered on 01/09/19at 05:53; Start 01/06/19 at 14:00; Stop 01/09/19 at 07:19; Status DC Pantoprazole Sodium 80 mg/ Sodium Chloride 100 ml @ 10 mls/hr Q10H IV Last administered on 01/10/19at 02:31; Start 01/06/19 at 12:30; Stop 01/10/19 at 12:11; Status DC Octreotide Acetate 500 mcg/ Sodium Chloride 101 ml @ 0 mls/hr CONT PRN IV SEE I/O RECORD Last administered on 01/08/19at 06:08; Start 01/06/19 at 12:15; Stop 01/08/19 at 10:48; Status DC Norepinephrine Bitartrate 250 ml @ 14.235 mls/ hr CONT PRN IV SEE I/O RECORD; Start 01/06/19 at 20:15; Stop 01/13/19 at 13:28; Status DC Albumin Human 100 ml @ 100 mls/hr 1X ONCE IV Last administered on 01/06/19at 21:30; Start 01/06/19 at 20:15; Stop 01/06/19 at 21:14; Status DC Phytonadione (Vitamin K Ampule) 10 mg 1X ONCE SQ Last administered on 01/07/19at 13:04; Start 01/07/19 at 11:45; Stop 01/07/19 at 11:46; Status DC Albuterol/ Ipratropium (Duoneb) 3 ml RTQID NEB Last administered on 01/15/19at 07:13; Start 01/07/19 at 16:00 Sodium Chloride 1,000 ml @ 75 mls/hr [id number] IV Last administered on 01/08/19at 23:47; Start 01/08/19 at 06:00; Stop 01/09/19 at 10:19; Status DC Labetalol HCl (Normodyne Iv Push) 10 mg PRN Q4HRS PRN IVP HYPERTENSION; Start 01/08/19 at 09:00 Potassium Bicarbonate (Potassium Effervescent Tablet) 40 meq 1X ONCE PEG Last administered on 01/08/19at 12:24; Start 01/08/19 at 11:30; Stop 01/08/19 at 11:33; Status DC Potassium Bicarbonate (Potassium Effervescent Tablet) 40 meq 1X ONCE PEG Last administered on 01/08/19at 16:06; Start 01/08/19 at 16:00; Stop 01/08/19 at 16:01; Status DC Potassium Bicarbonate (Potassium Effervescent Tablet) 80 meq 1X ONCE PEG Last administered on 01/09/19at 06:58; Start 01/09/19 at 06:15; Stop 01/09/19 at 06:21; Status DC Artificial Tears (Artificial Tears) 1 drop PRN Q15MIN PRN OU DRY EYE Last administered on 01/09/19at 10:11; Start 01/09/19 at 10:00 Dextrose/Sodium Chloride 1,000 ml @ 75 mls/hr [id number] IV Last administered on 01/09/19at 11:03; Start 01/09/19 at 10:30; Stop 01/09/19 at 12:20; Status DC Potassium Chloride/Water 50 ml @ 50 mls/hr Q1H IV ; Start 01/09/19 at 10:30; Stop 01/09/19 at 12:29; Status UNV Potassium Chloride/Water 100 ml @ 100 mls/hr Q1H IV ; Start 01/09/19 at 11:00; Stop 01/09/19 at 11:00; Status DC Lactulose (Lactulose) 30 gm BID NG Last administered on 01/09/19at 20:52; Start 01/09/19 at 21:00; Stop 01/10/19 at 13:57; Status DC Dextrose 1,000 ml @ 100 mls/hr Q10H IV Last administered on 01/13/19at 11:22; Start 01/09/19 at 12:30; Stop 01/14/19 at 13:58; Status DC Info (Tpn Per Pharmacy) 1 each PRN DAILY PRN MC SEE COMMENTS Last administered on 01/12/19at 13:31; Start 01/09/19 at 15:15; Stop 01/13/19 at 13:27; Status DC Potassium Chloride 50 meq/ Potassium Phosphate 13.6 mmol/Magnesium Sulfate 10 meq/ Calcium Gluconate 10 meq/ Multivitamins 10 ml/Chromium/ Copper/Manganese/ Seleni/Zn 1 ml/ Total Parenteral Nutrition/Amino Acids/Dextrose/ Fat Emulsion Intravenous 1,512 ml @ 63 mls/hr TPN CONT IV Last administered on 01/09/19at 21:41; Start 01/09/19 at 22:00; Stop 01/10/19 at 21:59; Status DC Potassium Chloride/Water 50 ml @ 50 mls/hr Q1H IV Last administered on 01/09/19at 20:51; Start 01/09/19 at 18:00; Stop 01/09/19 at 21:59; Status DC Potassium Phosphate 13.6 mmol/Dextrose 254.5333 ml @ 62.646 m... 1X ONCE IV Last administered on 01/09/19at 21:49; Start 01/09/19 at 22:00; Stop 01/10/19 at 08:03; Status DC Potassium Chloride/Water 50 ml @ 50 mls/hr Q1H IV Last administered on 01/10/19at 11:41; Start 01/10/19 at 08:00; Stop 01/10/19 at 11:59; Status DC Sodium Phosphate 40 mmol/Dextrose 263.3333 ml @ 62.5 mls/hr 1X ONCE IV ; Start 01/10/19 at 08:00; Stop 01/10/19 at 08:49; Status DC Potassium Phosphate 12 mmol/ Sodium Chloride 254 ml @ 125 mls/hr Q2H IV Last administered on 01/10/19at 15:24; Start 01/10/19 at 08:00; Stop 01/10/19 at 11:59; Status DC Potassium Chloride 40 meq/ Potassium Acetate 40 meq/Potassium Phosphate 15 mmol/ Magnesium Sulfate 10 meq/Calcium Gluconate 10 meq/ Multivitamins 10 ml/Chromium/ Copper/Manganese/ Seleni/Zn 1 ml/ Total Parenteral Nutrition/Amino Acids/Dextrose/ Fat Emulsion Intravenous 1,512 ml @ 63 mls/hr TPN CONT IV Last administered on 01/10/19at 22:08; Start 01/10/19 at 22:00; Stop 01/11/19 at 21:59; Status DC Pantoprazole Sodium (PROTONIX VIAL for IV PUSH) 40 mg BIDAC IVP Last administered on 01/14/19at 08:54; Start 01/10/19 at 16:30; Stop 01/14/19 at 11:38; Status DC Sodium Chloride 250 ml @ 250 mls/hr 1X ONCE IV Last administered on 01/10/19at 19:30; Start 01/10/19 at 19:30; Stop 01/10/19 at 20:29; Status DC Lorazepam (Ativan Inj) 1 mg PRN Q6HRS PRN IV ANXIETY / AGITATION Last administered on 01/15/19at 00:38; Start 01/10/19 at 23:15 Potassium Chloride 40 meq/ Potassium Acetate 40 meq/Potassium Phosphate 15 mmol/ Magnesium Sulfate 10 meq/Calcium Gluconate 10 meq/ Multivitamins 10 ml/Chromium/ Copper/Manganese/ Seleni/Zn 1 ml/ Total Parenteral Nutrition/Amino Acids/Dextrose/ Fat Emulsion Intravenous 1,512 ml @ 63 mls/hr TPN CONT IV Last administered on 01/11/19at 21:34; Start 01/11/19 at 22:00; Stop 01/12/19 at 21:59; Status DC Morphine Sulfate (Morphine Sulfate) 2 mg 1X ONCE IV Last administered on 01/12/19at 10:40; Start 01/12/19 at 09:30; Stop 01/12/19 at 09:31; Status DC Potassium Phosphate 13.6 mmol/Dextrose 104.5333 ml @ 52.267 m... Q2H IV Last administered on 01/12/19at 13:22; Start 01/12/19 at 11:30; Stop 01/12/19 at 15:29; Status DC Vancomycin HCl (Vanco Per Pharmacy) 1 each PRN DAILY PRN MC SEE COMMENTS Last administered on 01/15/19at 03:09; Start 01/12/19 at 11:15; Stop 01/15/19 at 08:54; Status DC Vancomycin HCl 2 gm/Sodium Chloride 500 ml @ 250 mls/hr ONCE ONCE IV Last administered on 01/12/19at 13:22; Start 01/12/19 at 12:00; Stop 01/12/19 at 13:59; Status DC Potassium Chloride 40 meq/ Potassium Acetate 40 meq/Potassium Phosphate 15 mmol/ Magnesium Sulfate 10 meq/Calcium Gluconate 10 meq/ Multivitamins 10 ml/Chromium/ Copper/Manganese/ Seleni/Zn 1 ml/ Total Parenteral Nutrition/Amino Acids/Dextrose/ Fat Emulsion Intravenous 1,512 ml @ 63 mls/hr TPN CONT IV Last administered on 01/12/19at 21:48; Start 01/12/19 at 22:00; Stop 01/13/19 at 21:59; Status DC Vancomycin HCl 2 gm/Sodium Chloride 500 ml @ 250 mls/hr 1X ONCE IV Last administered on 01/13/19at 08:27; Start 01/13/19 at 08:00; Stop 01/13/19 at 09 :59; Status DC Vancomycin HCl 1.25 gm/Sodium Chloride 250 ml @ 167 mls/hr Q12H IV Last administered on 01/14/19at 08:54; Start 01/13/19 at 21:00; Stop 01/14/19 at 23:22; Status DC Vancomycin HCl (Vancomycin Trough Level) 1 each 1X ONCE MC ; Start 01/14/19 at 20:30; Stop 01/14/19 at 20:31; Status DC Lactobacillus Rhamnosus (Culturelle) 1 cap BID PO Last administered on 01/15/19 at 08:21; Start 01/14/19 at 21:00 Pantoprazole Sodium (Protonix) 40 mg DAILYAC PO Last administered on 01/15/19at 08:21; Start 01/15/19 at 07:30 Dextrose/Sodium Chloride 1,000 ml @ 100 mls/hr Q10H IV Last administered on 01/15/19at 00:30; Start 01/14/19 at 14:00 Vancomycin HCl 1 gm/Sodium Chloride 250 ml @ 250 mls/hr Q12H IV Last administered on 01/15/19at 06:18; Start 01/15/19 at 06:00; Stop 01/15/19 at 08:54; Status DC Vancomycin HCl (Vancomycin Trough Level) 1 each 1X ONCE MC ; Start 01/16/19 at 17:30; Stop 01/16/19 at 17:30; Status DC Active Scripts Active Reported Omeprazole 40 Mg Capsule.dr 1 Cap PO DAILY Vitals/I & O Vital Sign - Last 24 Hours 01/14/19 01/14/19 01/14/19 01/14/19 09:29 12:00 12:22 16:00 Temp 98.4 97.8 98.4 97.8 Pulse 87 84 Resp 22 B/P (MAP) 96/60 (72) 97/65 (76) Pulse Ox 94 96 94 95 O2 Delivery Room Air Room Air Room Air Room Air 01/14/19 01/14/19 01/14/19 01/14/19 16:15 20:00 20:04 21:00 Temp 97.9 97.9 Pulse 87 Resp 22 B/P (MAP) 101/66 (78) Pulse Ox 94 96 94 O2 Delivery Room Air Room Air Room Air Room Air 01/14/19 01/15/19 01/15/19 01/15/19 23:57 03:00 07:15 08:17 Temp 97.5 97.5 97.6 97.5 97.5 97.6 Pulse 93 92 85 Resp 20 B/P (MAP) 146/82 (103) 120/68 (85) 103/67 (79) Pulse Ox 95 95 95 96 O2 Delivery Room Air Room Air Room Air Room Air Intake and Output 01/14/19 01/14/19 01/15/19 15:00 23:00 07:00 Intake Total 600 ml 750 ml 1100 ml Output Total 300 ml 1100 ml Balance 600 ml 450 ml 0 ml ISHAAN GIFFORD MD Jan 15, 2019 09:22
--- NOTE | 2019-01-15 11:10 | PDOC ---
Subjective: Subjective: Denies abd pain, might feel full after eating a lot. Objective: Objective: D/w nurse - MRI cancelled due to abnormal labs. C/o abd pain earlier. Vital Signs: Vital Signs Date Time Temp Pulse Resp B/P (MAP) Pulse Ox O2 Delivery O2 Flow Rate FiO2 01/15/19 08:17 97.6 85 20 103/67 (79) 96 Room Air 97.6 Labs: Laboratory Tests Test 01/14/19 22:25 01/15/19 05:20 Vancomycin Level Trough 22.4 mcg/mL Vancomycin Last Dose Date 01/14/19 Vancomycin Last Dose Time 0900 White Blood Count 19.3 x10^3/uL Red Blood Count 2.27 x10^6/uL Hemoglobin 8.3 g/dL Hematocrit 24.4 % Mean Corpuscular Volume 108 fL Mean Corpuscular Hemoglobin 37 pg Mean Corpuscular Hemoglobin Concent 34 g/dL Red Cell Distribution Width 25.5 % Platelet Count 76 x10^3/uL Neutrophils (%) (Auto) 87 % Lymphocytes (%) (Auto) 5 % Monocytes (%) (Auto) 6 % Eosinophils (%) (Auto) 2 % Basophils (%) (Auto) 0 % Neutrophils # (Auto) 16.7 x10^3/uL Lymphocytes # (Auto) 1.0 x10^3/uL Monocytes # (Auto) 1.2 x10^3/uL Eosinophils # (Auto) 0.3 x10^3/uL Basophils # (Auto) 0.1 x10^3/uL Sodium Level 132 mmol/L Potassium Level 3.9 mmol/L Chloride Level 102 mmol/L Carbon Dioxide Level 18 mmol/L Anion Gap 12 Blood Urea Nitrogen 47 mg/dL Creatinine 1.9 mg/dL Estimated GFR (Cockcroft-Gault) 38.7 Glucose Level 111 mg/dL Calcium Level 7.0 mg/dL Phosphorus Level 5.2 mg/dL Magnesium Level 2.2 mg/dL BLOOD CULTURE Preliminary NO GROWTH AFTER 2 DAYS PE: GEN: NAD, has 1:1 LUNGS: room air HEART: RRR ABD: non-tender SKIN: jaundiced EXTREM: bruising, pitting edema BLE NEURO/PSYCH: awake and alert A/P: Alcoholic hepatitis Leukocytosis, DEE DEE (Cr 1.9) -- MRI cancelled. Continue support, continue PPI. EMILEE TRAMMELL Jan 15, 2019 11:10
[2019-01-15 11:11] VITALS: BP 108/61
--- NOTE | 2019-01-15 12:04 | PDOC ---
Renal-Progress Notes Subjective Notes Notes NO NEW COMPLAINTS History of Present Illness Hx of present illness OVER ALL BETTER Vitals Vitals Vital Signs Date Time Temp Pulse Resp B/P (MAP) Pulse Ox O2 Delivery O2 Flow Rate FiO2 01/15/19 11:22 95 Room Air 01/15/19 11:11 97.9 87 28 108/61 (77) 97.9 Weight Weight [ ] I.O. Intake and Output Intake and Output 01/15/19 06:59 Intake Total 2450 ml Output Total 1400 ml Balance 1050 ml Intake Oral 350 ml IV Total 2100 ml Output Urine Total 1400 ml # Bowel Movements 1 Labs Labs Laboratory Tests Test 01/14/19 22:25 01/15/19 05:20 Vancomycin Level Trough 22.4 mcg/mL (10.0-20.0) Vancomycin Last Dose Date 01/14/19 Vancomycin Last Dose Time 0900 White Blood Count 19.3 x10^3/uL (4.0-11.0) Red Blood Count 2.27 x10^6/uL (4.30-5.70) Hemoglobin 8.3 g/dL (13.0-17.5) Hematocrit 24.4 % (39.0-53.0) Mean Corpuscular Volume 108 fL (79-100) Mean Corpuscular Hemoglobin 37 pg (25-35) Mean Corpuscular Hemoglobin Concent 34 g/dL (31-37) Red Cell Distribution Width 25.5 % (11.5-14.5) Platelet Count 76 x10^3/uL (140-400) Neutrophils (%) (Auto) 87 % (31-73) Lymphocytes (%) (Auto) 5 % (24-48) Monocytes (%) (Auto) 6 % (0-9) Eosinophils (%) (Auto) 2 % (0-3) Basophils (%) (Auto) 0 % (0-3) Neutrophils # (Auto) 16.7 x10^3/uL (1.8-7.7) Lymphocytes # (Auto) 1.0 x10^3/uL (1.0-4.8) Monocytes # (Auto) 1.2 x10^3/uL (0.0-1.1) Eosinophils # (Auto) 0.3 x10^3/uL (0.0-0.7) Basophils # (Auto) 0.1 x10^3/uL (0.0-0.2) Sodium Level 132 mmol/L (136-145) Potassium Level 3.9 mmol/L (3.5-5.1) Chloride Level 102 mmol/L (98-107) Carbon Dioxide Level 18 mmol/L (21-32) Anion Gap 12 (6-14) Blood Urea Nitrogen 47 mg/dL (8-26) Creatinine 1.9 mg/dL (0.7-1.3) Estimated GFR (Cockcroft-Gault) 38.7 Glucose Level 111 mg/dL (70-99) Calcium Level 7.0 mg/dL (8.5-10.1) Phosphorus Level 5.2 mg/dL (2.6-4.7) Magnesium Level 2.2 mg/dL (1.8-2.4) Micro Micro Microbiology 01/12/19 Blood Culture - Preliminary, Resulted NO GROWTH AFTER 2 DAYS 01/04/19 Urine Culture - Final, Complete 01/04/19 Urine Culture Result 1 (DONALD) - Final, Complete Review of Systems Constitutional: yes: other (CONFUSION PERSISTS) Physical Exam General Appearance: no apparent distress Skin: warm Respiratory: decreased breath sounds Heart: S1S2 Abdomen: soft, bowel sounds present Genitourinary: bladder flat, no mass Extremities: pulses present Neurology: alert Assessment Assessment IMP MILD DEE DEE-CR UP TO 1.9 NOW DEHYDRATION HYPERNATREMIA-RESOLVED ETOH RELATED HEPATIC ENCEPHALOPATHY-BETTER LIVER FAILURE AND RELATED COAGULOPATHY HYPOXIC RESP FAILURE-IMPROVE LACTIC ACIDOSIS-FROM LIVER AND TISSUE HYPOXIA-BETTER THROMBOCYTOPENIA SEPSIS WITH LEUCOCYTOSIS AND HYPOTENSION-BETTER PANCREATITIS MALNUTRITION HYPOPHOSPHATEMIA-CORRECTED PLAN INCREASE ISOTONIC SALINE ANTIBIOTICS PO PER GI TEAM REPLACE PO4 NEEDED MONITOR FOR ETOH WITHDRAWAL INCREASE ACTIVITY TOLERATED WILL FOLLOW DANNY GUILLEN MD Jan 15, 2019 12:04
--- NOTE | 2019-01-15 12:13 | PDOC ---
PROGRESS NOTES Assessment Problems Medical Problems: (1) Alcoholic liver disease Status: Acute (2) Cholelithiasis Status: Acute (3) Colitis Status: Acute (4) Jaundice Status: Acute (5) Pancreatitis Status: Acute (6) Thrombocytopenia Status: Acute Metabolic and toxic encephalopathy. Alcohol intoxication and alcoholism Plan DC Galdamez Thiamine stopped Treat medical diseases. Hold on EEG, given improvement Subjective No complaints Objective Vital Signs Date Time Temp Pulse Resp B/P (MAP) Pulse Ox O2 Delivery O2 Flow Rate FiO2 01/15/19 11:22 95 Room Air 01/15/19 11:11 97.9 87 28 108/61 (77) 97.9 Intake and Output 01/15/19 07:00 Intake Total 2450 ml Output Total 1400 ml Balance 1050 ml Intake Oral 350 ml IV Total 2100 ml Output Urine Total 1400 ml # Bowel Movements 1 PHYSICAL EXAM Jaundiced Alert. Oriented to place and person. PERRL. EOMI. CN: no focal findings. Muscle tone: normal. Muscle strength: 4/5 DTR: 1+ Plantar reflex: flexor Gait: not examined in bed. Sensory exam: no abnormal findings. Cerebellar: some bilateral dysmetria mainly due to weakness Review of Relevant I have reviewed the following items pierre (where applicable) has been applied. Labs Laboratory Tests Test 01/14/19 04:51 01/14/19 22:25 01/15/19 05:20 White Blood Count 17.6 x10^3/uL (4.0-11.0) 19.3 x10^3/uL (4.0-11.0) Red Blood Count 2.28 x10^6/uL (4.30-5.70) 2.27 x10^6/uL (4.30-5.70) Hemoglobin 8.2 g/dL (13.0-17.5) 8.3 g/dL (13.0-17.5) Hematocrit 24.5 % (39.0-53.0) 24.4 % (39.0-53.0) Mean Corpuscular Volume 108 fL (79-100) 108 fL (79-100) Mean Corpuscular Hemoglobin 36 pg (25-35) 37 pg (25-35) Mean Corpuscular Hemoglobin Concent 33 g/dL (31-37) 34 g/dL (31-37) Red Cell Distribution Width 25.0 % (11.5-14.5) 25.5 % (11.5-14.5) Platelet Count 60 x10^3/uL (140-400) 76 x10^3/uL (140-400) Neutrophils (%) (Auto) 81 % (31-73) 87 % (31-73) Lymphocytes (%) (Auto) 9 % (24-48) 5 % (24-48) Monocytes (%) (Auto) 8 % (0-9) 6 % (0-9) Eosinophils (%) (Auto) 2 % (0-3) 2 % (0-3) Basophils (%) (Auto) 1 % (0-3) 0 % (0-3) Neutrophils # (Auto) 14.2 x10^3/uL (1.8-7.7) 16.7 x10^3/uL (1.8-7.7) Lymphocytes # (Auto) 1.6 x10^3/uL (1.0-4.8) 1.0 x10^3/uL (1.0-4.8) Monocytes # (Auto) 1.3 x10^3/uL (0.0-1.1) 1.2 x10^3/uL (0.0-1.1) Eosinophils # (Auto) 0.3 x10^3/uL (0.0-0.7) 0.3 x10^3/uL (0.0-0.7) Basophils # (Auto) 0.2 x10^3/uL (0.0-0.2) 0.1 x10^3/uL (0.0-0.2) Prothrombin Time 20.8 SEC (11.7-14.0) Prothromb Time International Ratio 1.8 (0.8-1.1) Sodium Level 132 mmol/L (136-145) 132 mmol/L (136-145) Potassium Level 4.0 mmol/L (3.5-5.1) 3.9 mmol/L (3.5-5.1) Chloride Level 103 mmol/L (98-107) 102 mmol/L (98-107) Carbon Dioxide Level 19 mmol/L (21-32) 18 mmol/L (21-32) Anion Gap 10 (6-14) 12 (6-14) Blood Urea Nitrogen 37 mg/dL (8-26) 47 mg/dL (8-26) Creatinine 1.4 mg/dL (0.7-1.3) 1.9 mg/dL (0.7-1.3) Estimated GFR (Cockcroft-Gault) 55.1 38.7 Glucose Level 101 mg/dL (70-99) 111 mg/dL (70-99) Calcium Level 7.2 mg/dL (8.5-10.1) 7.0 mg/dL (8.5-10.1) Phosphorus Level 3.6 mg/dL (2.6-4.7) 5.2 mg/dL (2.6-4.7) Magnesium Level 2.1 mg/dL (1.8-2.4) 2.2 mg/dL (1.8-2.4) Vancomycin Level Trough 22.4 mcg/mL (10.0-20.0) Vancomycin Last Dose Date 01/14/19 Vancomycin Last Dose Time 0900 Laboratory Tests Test 01/14/19 22:25 01/15/19 05:20 Vancomycin Level Trough 22.4 mcg/mL (10.0-20.0) Vancomycin Last Dose Date 01/14/19 Vancomycin Last Dose Time 0900 White Blood Count 19.3 x10^3/uL (4.0-11.0) Red Blood Count 2.27 x10^6/uL (4.30-5.70) Hemoglobin 8.3 g/dL (13.0-17.5) Hematocrit 24.4 % (39.0-53.0) Mean Corpuscular Volume 108 fL (79-100) Mean Corpuscular Hemoglobin 37 pg (25-35) Mean Corpuscular Hemoglobin Concent 34 g/dL (31-37) Red Cell Distribution Width 25.5 % (11.5-14.5) Platelet Count 76 x10^3/uL (140-400) Neutrophils (%) (Auto) 87 % (31-73) Lymphocytes (%) (Auto) 5 % (24-48) Monocytes (%) (Auto) 6 % (0-9) Eosinophils (%) (Auto) 2 % (0-3) Basophils (%) (Auto) 0 % (0-3) Neutrophils # (Auto) 16.7 x10^3/uL (1.8-7.7) Lymphocytes # (Auto) 1.0 x10^3/uL (1.0-4.8) Monocytes # (Auto) 1.2 x10^3/uL (0.0-1.1) Eosinophils # (Auto) 0.3 x10^3/uL (0.0-0.7) Basophils # (Auto) 0.1 x10^3/uL (0.0-0.2) Sodium Level 132 mmol/L (136-145) Potassium Level 3.9 mmol/L (3.5-5.1) Chloride Level 102 mmol/L (98-107) Carbon Dioxide Level 18 mmol/L (21-32) Anion Gap 12 (6-14) Blood Urea Nitrogen 47 mg/dL (8-26) Creatinine 1.9 mg/dL (0.7-1.3) Estimated GFR (Cockcroft-Gault) 38.7 Glucose Level 111 mg/dL (70-99) Calcium Level 7.0 mg/dL (8.5-10.1) Phosphorus Level 5.2 mg/dL (2.6-4.7) Magnesium Level 2.2 mg/dL (1.8-2.4) Microbiology 01/12/19 Blood Culture - Preliminary, Resulted NO GROWTH AFTER 2 DAYS 01/04/19 Urine Culture - Final, Complete 01/04/19 Urine Culture Result 1 (DONALD) - Final, Complete Medications Current Medications Iohexol (Omnipaque 240 Mg/ml) 30 ml 1X ONCE PO Last administered on 01/04/19at 15:15; Start 01/04/19 at 15:15; Stop 01/04/19 at 15:17; Status DC Iohexol (Omnipaque 300 Mg/ml) 75 ml 1X ONCE IV Last administered on 01/04/19at 16:20; Start 01/04/19 at 15:15; Stop 01/04/19 at 15:17; Status DC Info (CONTRAST GIVEN -- Rx MONITORING) 1 each PRN DAILY PRN MC SEE COMMENTS; Start 01/04/19 at 15:30; Stop 01/06/19 at 15:29; Status DC Multivitamins 10 ml/Thiamine HCl 100 mg/Folic Acid 1 mg/Sodium Chloride 1,011.2 ml @ 100 mls/ hr DAILY IV Last administered on 01/08/19at 08:12; Start 01/04/19 at 18:00; Stop 01/08/19 at 19:07; Status DC Chlordiazepoxide (Librium) 50 mg PRN Q1HR PRN PO For CIWA 8-14 Last administered on 01/04/19at 18:17; Start 01/04/19 at 17:45 Chlordiazepoxide (Librium) 100 mg PRN Q1HR PRN PO For CIWA 15 or greater Last administered on 01/05/19at 06:27; Start 01/04/19 at 17:45 Lorazepam (Ativan) 4 mg PRN Q1HR PRN PO For CIWA 8-14 Last administered on 01/04/19 18:17; Start 01/04/19 at 17:45; Stop 01/10/19 at 07:34; Status DC Lorazepam (Ativan) 8 mg PRN Q1HR PRN PO For CIWA 15 or greater; Start 01/04/19 at 17:45; Stop 01/10/19 at 07:34; Status DC Haloperidol Lactate (Haldol Inj) 5 mg PRN Q4HRS PRN IVP Hallucinatns,Confusn,Delirium Last administered on 01/13/19at 11:22; Start 01/04/19 at 17:45 Diphenhydramine HCl (Benadryl) 25 mg PRN Q15MIN PRN IVP EPS symptoms 2'Haldol admin; Start 01/04/19 at 17:45 Clonidine HCl (Catapres) 0.1 mg PRN Q1HR PRN PO SBP > 180 or DBP > 100, MRX3 Last administered on 01/08/19at 07:18; Start 01/04/19 at 17:45; Stop 01/08/19 at 08:58; Status DC Lorazepam (Ativan Inj) 2 mg PRN Q1HR PRN IV For CIWA 8-14 Last administered on 01/11/19at 22:50; Start 01/04/19 at 19:15 Lorazepam (Ativan Inj) 4 mg PRN Q1HR PRN IV For CIWA 15 or greater Last administered on 01/05/19at 06:28; Start 01/04/19 at 19:15 Lorazepam (Ativan Inj) 2 mg PRN Q15MIN PRN IV SEE COMMENTS; Start 01/04/19 at 19:15; Status UNV Lorazepam (Ativan Inj) 4 mg PRN Q15MIN PRN IV SEE COMMENTS; Start 01/04/19 at 19:15; Status UNV Ondansetron HCl (Zofran) 4 mg PRN Q6HRS PRN IV NAUSEA/VOMITING Last administered on 01/04/19at 19:34; Start 01/04/19 at 19:30 Pantoprazole Sodium (PROTONIX VIAL for IV PUSH) 40 mg DAILYAC IVP Last administered on 01/06/19at 10:36; Start 01/06/19 at 10:00; Stop 01/06/19 at 12:17; Status DC Phytonadione (Vitamin K Ampule) 10 mg 1X ONCE SQ Last administered on 01/06at 10:36; Start 01/06/19 at 10:15; Stop 01/06/19 at 10:16; Status DC Piperacillin Sod/ Tazobactam Sod (Zosyn Per Pharmacy) 1 each PRN DAILY PRN MC SEE COMMENTS; Start 01/06/19 at 10:30 Piperacillin Sod/ Tazobactam Sod 3.375 gm/Sodium Chloride 50 ml @ 100 mls/hr Q6HRS IV Last administered on 01/15/19at 11:51; Start 01/06/19 at 11:00 Lactulose (Lactulose) 30 gm Q6HRS NG Last administered on 01/09/19at 05:53; Start 01/06/19 at 12:00; Stop 01/09/19 at 10:51; Status DC Metronidazole 100 ml @ 100 mls/hr Q8HRS IV Last administered on 01/09/19at 05:53; Start 01/06/19 at 14:00; Stop 01/09/19 at 07:19; Status DC Pantoprazole Sodium 80 mg/ Sodium Chloride 100 ml @ 10 mls/hr Q10H IV Last administered on 01/10/19at 02:31; Start 01/06/19 at 12:30; Stop 01/10/19 at 12:11; Status DC Octreotide Acetate 500 mcg/ Sodium Chloride 101 ml @ 0 mls/hr CONT PRN IV SEE I/O RECORD Last administered on 01/08/19at 06:08; Start 01/06/19 at 12:15; Stop 01/08/19 at 10:48; Status DC Norepinephrine Bitartrate 250 ml @ 14.235 mls/ hr CONT PRN IV SEE I/O RECORD; Start 01/06/19 at 20:15; Stop 01/13/19 at 13:28; Status DC Albumin Human 100 ml @ 100 mls/hr 1X ONCE IV Last administered on 01/06/19at 21:30; Start 01/06/19 at 20:15; Stop 01/06/19 at 21:14; Status DC Phytonadione (Vitamin K Ampule) 10 mg 1X ONCE SQ Last administered on 01/07/19at 13:04; Start 01/07/19 at 11:45; Stop 01/07/19 at 11:46; Status DC Albuterol/ Ipratropium (Duoneb) 3 ml RTQID NEB Last administered on 01/15/19at 11:19; Start 01/07/19 at 16:00 Sodium Chloride 1,000 ml @ 75 mls/hr [id number] IV Last administered on 01/08/19at 23:47; Start 01/08/19 at 06:00; Stop 01/09/19 at 10:19; Status DC Labetalol HCl (Normodyne Iv Push) 10 mg PRN Q4HRS PRN IVP HYPERTENSION; Start 01/08/19 at 09:00 Potassium Bicarbonate (Potassium Effervescent Tablet) 40 meq 1X ONCE PEG Last administered on 01/08/19at 12:24; Start 01/08/19 at 11:30; Stop 01/08/19 at 11:33; Status DC Potassium Bicarbonate (Potassium Effervescent Tablet) 40 meq 1X ONCE PEG Last administered on 01/08/19at 16:06; Start 01/08/19 at 16:00; Stop 01/08/19 at 16:01; Status DC Potassium Bicarbonate (Potassium Effervescent Tablet) 80 meq 1X ONCE PEG Last administered on 01/09/19at 06:58; Start 01/09/19 at 06:15; Stop 01/09/19 at 06:21; Status DC Artificial Tears (Artificial Tears) 1 drop PRN Q15MIN PRN OU DRY EYE Last administered on 01/09/19at 10:11; Start 01/09/19 at 10:00 Dextrose/Sodium Chloride 1,000 ml @ 75 mls/hr [id number] IV Last administered on 01/09/19at 11:03; Start 01/09/19 at 10:30; Stop 01/09/19 at 12:20; Status DC Potassium Chloride/Water 50 ml @ 50 mls/hr Q1H IV ; Start 01/09/19 at 10:30; Stop 01/09/19 at 12:29; Status UNV Potassium Chloride/Water 100 ml @ 100 mls/hr Q1H IV ; Start 01/09/19 at 11:00; Stop 01/09/19 at 11:00; Status DC Lactulose (Lactulose) 30 gm BID NG Last administered on 01/09/19at 20:52; Start 01/09/19 at 21:00; Stop 01/10/19 at 13:57; Status DC Dextrose 1,000 ml @ 100 mls/hr Q10H IV Last administered on 01/13/19at 11:22; Start 01/09/19 at 12:30; Stop 01/14/19 at 13:58; Status DC Info (Tpn Per Pharmacy) 1 each PRN DAILY PRN MC SEE COMMENTS Last administered on 01/12/19at 13:31; Start 01/09/19 at 15:15; Stop 01/13/19 at 13:27; Status DC Potassium Chloride 50 meq/ Potassium Phosphate 13.6 mmol/Magnesium Sulfate 10 meq/ Calcium Gluconate 10 meq/ Multivitamins 10 ml/Chromium/ Copper/Manganese/ Seleni/Zn 1 ml/ Total Parenteral Nutrition/Amino Acids/Dextrose/ Fat Emulsion Intravenous 1,512 ml @ 63 mls/hr TPN CONT IV Last administered on 01/09/19at 21:41; Start 01/09/19 at 22:00; Stop 01/10/19 at 21:59; Status DC Potassium Chloride/Water 50 ml @ 50 mls/hr Q1H IV Last administered on 01/09/19at 20:51; Start 01/09/19 at 18:00; Stop 01/09/19 at 21:59; Status DC Potassium Phosphate 13.6 mmol/Dextrose 254.5333 ml @ 62.646 m... 1X ONCE IV Last administered on 01/09/19at 21:49; Start 01/09/19 at 22:00; Stop 01/10/19 at 08:03; Status DC Potassium Chloride/Water 50 ml @ 50 mls/hr Q1H IV Last administered on 01/10/19at 11:41; Start 01/10/19 at 08:00; Stop 01/10/19 at 11:59; Status DC Sodium Phosphate 40 mmol/Dextrose 263.3333 ml @ 62.5 mls/hr 1X ONCE IV ; Start 01/10/19 at 08:00; Stop 01/10/19 at 08:49; Status DC Potassium Phosphate 12 mmol/ Sodium Chloride 254 ml @ 125 mls/hr Q2H IV Last administered on 01/10/19at 15:24; Start 01/10/19 at 08:00; Stop 01/10/19 at 11:59; Status DC Potassium Chloride 40 meq/ Potassium Acetate 40 meq/Potassium Phosphate 15 mmol/ Magnesium Sulfate 10 meq/Calcium Gluconate 10 meq/ Multivitamins 10 ml/Chromium/ Copper/Manganese/ Seleni/Zn 1 ml/ Total Parenteral Nutrition/Amino Acids/Dextrose/ Fat Emulsion Intravenous 1,512 ml @ 63 mls/hr TPN CONT IV Last administered on 01/10/19at 22:08; Start 01/10/19 at 22:00; Stop 01/11/19 at 21:59; Status DC Pantoprazole Sodium (PROTONIX VIAL for IV PUSH) 40 mg BIDAC IVP Last administered on 01/14/19at 08:54; Start 01/10/19 at 16:30; Stop 01/14/19 at 11:38; Status DC Sodium Chloride 250 ml @ 250 mls/hr 1X ONCE IV Last administered on 01/10/19at 19:30; Start 01/10/19 at 19:30; Stop 01/10/19 at 20:29; Status DC Lorazepam (Ativan Inj) 1 mg PRN Q6HRS PRN IV ANXIETY / AGITATION Last administered on 01/15/19at 00:38; Start 01/10/19 at 23:15 Potassium Chloride 40 meq/ Potassium Acetate 40 meq/Potassium Phosphate 15 mmol/ Magnesium Sulfate 10 meq/Calcium Gluconate 10 meq/ Multivitamins 10 ml/Chromium/ Copper/Manganese/ Seleni/Zn 1 ml/ Total Parenteral Nutrition/Amino Acids/Dextrose/ Fat Emulsion Intravenous 1,512 ml @ 63 mls/hr TPN CONT IV Last administered on 01/11/19at 21:34; Start 01/11/19 at 22:00; Stop 01/12/19 at 21:59; Status DC Morphine Sulfate (Morphine Sulfate) 2 mg 1X ONCE IV Last administered on 01/12/19at 10:40; Start 01/12/19 at 09:30; Stop 01/12/19 at 09:31; Status DC Potassium Phosphate 13.6 mmol/Dextrose 104.5333 ml @ 52.267 m... Q2H IV Last administered on 01/12/19at 13:22; Start 01/12/19 at 11:30; Stop 01/12/19 at 15:29; Status DC Vancomycin HCl (Vanco Per Pharmacy) 1 each PRN DAILY PRN MC SEE COMMENTS Last administered on 01/15/19at 03:09; Start 01/12/19 at 11:15; Stop 01/15/19 at 08:54; Status DC Vancomycin HCl 2 gm/Sodium Chloride 500 ml @ 250 mls/hr ONCE ONCE IV Last administered on 01/12/19at 13:22; Start 01/12/19 at 12:00; Stop 01/12/19 at 13:59; Status DC Potassium Chloride 40 meq/ Potassium Acetate 40 meq/Potassium Phosphate 15 mmol/ Magnesium Sulfate 10 meq/Calcium Gluconate 10 meq/ Multivitamins 10 ml/Chromium/ Copper/Manganese/ Seleni/Zn 1 ml/ Total Parenteral Nutrition/Amino Acids/Dextrose/ Fat Emulsion Intravenous 1,512 ml @ 63 mls/hr TPN CONT IV Last administered on 01/12/19at 21:48; Start 01/12/19 at 22:00; Stop 01/13/19 at 21:59; Status DC Vancomycin HCl 2 gm/Sodium Chloride 500 ml @ 250 mls/hr 1X ONCE IV Last administered on 01/13/19at 08:27; Start 01/13/19 at 08:00; Stop 01/13/19 at 09:59; Status DC Vancomycin HCl 1.25 gm/Sodium Chloride 250 ml @ 167 mls/hr Q12H IV Last administered on 01/14/19at 08:54; Start 01/13/19 at 21:00; Stop 01/14/19 at 23:22; Status DC Vancomycin HCl (Vancomycin Trough Level) 1 each 1X ONCE MC ; Start 01/14/19 at 20:30; Stop 01/15/19 at 10:33; Status DC Lactobacillus Rhamnosus (Culturelle) 1 cap BID PO Last administered on 01/15/19at 08:21; Start 01/14/19 at 21:00 Pantoprazole Sodium (Protonix) 40 mg DAILYAC PO Last administered on 01/15/19at 08:21; Start 01/15/19 at 07:30 Dextrose/Sodium Chloride 1,000 ml @ 150 mls/hr Q6H40M IV Last administered on 01/15/19at 11:00; Start 01/14/19 at 14:00 Vancomycin HCl 1 gm/Sodium Chloride 250 ml @ 250 mls/hr Q12H IV Last administered on 01/15/19at 06:18; Start 01/15/19 at 06:00; Stop 01/15/19 at 08:54; Status DC Vancomycin HCl (Vancomycin Trough Level) 1 each 1X ONCE MC ; Start 01/16/19 at 17:30; Stop 01/16/19 at 17:30; Status DC Active Scripts Active Reported Omeprazole 40 Mg Capsule. 1 Cap PO DAILY Vitals/I & O Vital Sign - Last 24 Hours 01/14/19 01/14/19 01/14/19 01/14/19 12:22 16:00 16:15 20:00 Temp 97.8 97.9 97.8 97.9 Pulse 84 87 Resp 22 B/P (MAP) 97/65 (76) 101/66 (78) Pulse Ox 94 95 94 96 O2 Delivery Room Air Room Air Room Air Room Air 01/14/19 01/14/19 01/14/19 01/15/19 20:04 21:00 23:57 03:00 Temp 97.5 97.5 97.5 97.5 Pulse 93 92 Resp 19 B/P (MAP) 146/82 (103) 120/68 (85) Pulse Ox 94 95 95 O2 Delivery Room Air Room Air Room Air Room Air 01/15/19 01/15/19 01/15/19 01/15/19 07:15 08:00 08:17 11:11 Temp 97.6 97.9 97.6 97.9 Pulse 85 87 Resp 28 B/P (MAP) 103/67 (79) 108/61 (77) Pulse Ox 95 96 94 O2 Delivery Room Air Room Air Room Air Room Air 01/15/19 11:22 Pulse Ox 95 O2 Delivery Room Air Intake and Output 01/14/19 01/14/19 01/15/19 15:00 23:00 07:00 Intake Total 600 ml 750 ml 1100 ml Output Total 300 ml 1100 ml Balance 600 ml 450 ml 0 ml MARIA TERESA HOSKINS MD Jan 15, 2019 12:13
--- NOTE | 2019-01-15 12:52 | PDOC ---
PROGRESS NOTES Chief Complaint Chief Complaint JAundice, thrombocytopenia Liver mass? Sepsis w/ hypotension, lactic acidosis and fever - t.o ICU severely encephalopathic - sitter hypernatremia, hypokalemia - Hemoglobin 8.3 post transfusion 01/09 Coagulopathy s/p FFP moved ICU Ammonia levels 208 ON ADMIT History of Present Illness History of Present Illness Transferred out of ICU Blood cultures no growth, but confused with elevated ammonia on admission Creatinine elevated stable DNR Overall prognosis poor WBC 19.3, he is jaundiced thrombocytopenia platelets 76 with old bruising but no active bleeding Hemoglobin 8 History of heavy alcohol in the past Was very confused and would've been almost a CODE BLUE on arrival apparently as per LOS meeting this is my first day with him after a very complicated course for about 2 weeks now Sitter at bedside, needed coaxing to orient him Plan:the right consults are on board, i,e GI for the liver mass? Renal for the AK I. Some mention of colitis on CT Abdomen is distended tender. We'll review if needs reimaging DNR Self-pay and is not a citizen Continue antibiotics per ID Overall prognosis guarded not ready to DC COnt sitter Other supprotive emds WOF bleeding Vitals Vitals Vital Signs Date Time Temp Pulse Resp B/P (MAP) Pulse Ox O2 Delivery O2 Flow Rate FiO2 01/15/19 11:22 95 Room Air 01/15/19 11:11 97.9 87 28 108/61 (77) 97.9 Physical Exam Physical Exam GENERAL: Propped up in bed, awake, weak appearing, markedly jaundiced HEENT: Pupils equally round and reactive. Icterus. Oral cavity dry NECK: Supple. LUNGS: Decreased in bases HEART: S1 and S2 regular ABDOMEN: Distended, soft, no grimace or guarding to palpation. Bowel sounds present. GENITOURINARY: Indwelling Galdamez in place. EXTREMITIES: Generalized edema. No cyanosis SKIN: Warm to touch. Multiple ecchymoses, especially lower extremities. NEUROLOGIC: Awake, confused and follows simple commands RIJ -clean General: Alert, No acute distress Heart: Normal S1, Normal S2 Lungs: Other (decrease bs) Abdomen: Soft, No tenderness, Other (ND) Extremities: No cyanosis, Other (noted eccyhmosis, 2 PLUS pedal edema ) Skin: Other (Bruising and jaundice) Labs LABS Laboratory Tests Test 01/14/19 22:25 7/23/19 05:20 Vancomycin Level Trough 22.4 mcg/mL (10.0-20.0) Vancomycin Last Dose Date 01/14/19 Vancomycin Last Dose Time 0900 White Blood Count 19.3 x10^3/uL (4.0-11.0) Red Blood Count 2.27 x10^6/uL (4.30-5.70) Hemoglobin 8.3 g/dL (13.0-17.5) Hematocrit 24.4 % (39.0-53.0) Mean Corpuscular Volume 108 fL (79-100) Mean Corpuscular Hemoglobin 37 pg (25-35) Mean Corpuscular Hemoglobin Concent 34 g/dL (31-37) Red Cell Distribution Width 25.5 % (11.5-14.5) Platelet Count 76 x10^3/uL (140-400) Neutrophils (%) (Auto) 87 % (31-73) Lymphocytes (%) (Auto) 5 % (24-48) Monocytes (%) (Auto) 6 % (0-9) Eosinophils (%) (Auto) 2 % (0-3) Basophils (%) (Auto) 0 % (0-3) Neutrophils # (Auto) 16.7 x10^3/uL (1.8-7.7) Lymphocytes # (Auto) 1.0 x10^3/uL (1.0-4.8) Monocytes # (Auto) 1.2 x10^3/uL (0.0-1.1) Eosinophils # (Auto) 0.3 x10^3/uL (0.0-0.7) Basophils # (Auto) 0.1 x10^3/uL (0.0-0.2) Sodium Level 132 mmol/L (136-145) Potassium Level 3.9 mmol/L (3.5-5.1) Chloride Level 102 mmol/L (98-107) Carbon Dioxide Level 18 mmol/L (21-32) Anion Gap 12 (6-14) Blood Urea Nitrogen 47 mg/dL (8-26) Creatinine 1.9 mg/dL (0.7-1.3) Estimated GFR (Cockcroft-Gault) 38.7 Glucose Level 111 mg/dL (70-99) Calcium Level 7.0 mg/dL (8.5-10.1) Phosphorus Level 5.2 mg/dL (2.6-4.7) Magnesium Level 2.2 mg/dL (1.8-2.4) Review of Systems Review of Systems CONFused hence limited ROS Assessment and Plan Assessmemt and Plan Problems Medical Problems: (1) Alcoholic liver disease Status: Acute (2) Cholelithiasis Status: Acute (3) Colitis Status: Acute (4) Jaundice Status: Acute (5) Pancreatitis Status: Acute (6) Thrombocytopenia Status: Acute Comment Review of Relevant I have reviewed the following items pierre (where applicable) has been applied. Labs Laboratory Tests Test 01/14/19 04:51 01/14/19 22:25 01/15/19 05:20 White Blood Count 17.6 x10^3/uL (4.0-11.0) 19.3 x10^3/uL (4.0-11.0) Red Blood Count 2.28 x10^6/uL (4.30-5.70) 2.27 x10^6/uL (4.30-5.70) Hemoglobin 8.2 g/dL (13.0-17.5) 8.3 g/dL (13.0-17.5) Hematocrit 24.5 % (39.0-53.0) 24.4 % (39.0-53.0) Mean Corpuscular Volume 108 fL (79-100) 108 fL (79-100) Mean Corpuscular Hemoglobin 36 pg (25-35) 37 pg (25-35) Mean Corpuscular Hemoglobin Concent 33 g/dL (31-37) 34 g/dL (31-37) Red Cell Distribution Width 25.0 % (11.5-14.5) 25.5 % (11.5-14.5) Platelet Count 60 x10^3/uL (140-400) 76 x10^3/uL (140-400) Neutrophils (%) (Auto) 81 % (31-73) 87 % (31-73) Lymphocytes (%) (Auto) 9 % (24-48) 5 % (24-48) Monocytes (%) (Auto) 8 % (0-9) 6 % (0-9) Eosinophils (%) (Auto) 2 % (0-3) 2 % (0-3) Basophils (%) (Auto) 1 % (0-3) 0 % (0-3) Neutrophils # (Auto) 14.2 x10^3/uL (1.8-7.7) 16.7 x10^3/uL (1.8-7.7) Lymphocytes # (Auto) 1.6 x10^3/uL (1.0-4.8) 1.0 x10^3/uL (1.0-4.8) Monocytes # (Auto) 1.3 x10^3/uL (0.0-1.1) 1.2 x10^3/uL (0.0-1.1) Eosinophils # (Auto) 0.3 x10^3/uL (0.0-0.7) 0.3 x10^3/uL (0.0-0.7) Basophils # (Auto) 0.2 x10^3/uL (0.0-0.2) 0.1 x10^3/uL (0.0-0.2) Prothrombin Time 20.8 SEC (11.7-14.0) Prothromb Time International Ratio 1.8 (0.8-1.1) Sodium Level 132 mmol/L (136-145) 132 mmol/L (136-145) Potassium Level 4.0 mmol/L (3.5-5.1) 3.9 mmol/L (3.5-5.1) Chloride Level 103 mmol/L (98-107) 102 mmol/L (98-107) Carbon Dioxide Level 19 mmol/L (21-32) 18 mmol/L (21-32) Anion Gap 10 (6-14) 12 (6-14) Blood Urea Nitrogen 37 mg/dL (8-26) 47 mg/dL (8-26) Creatinine 1.4 mg/dL (0.7-1.3) 1.9 mg/dL (0.7-1.3) Estimated GFR (Cockcroft-Gault) 55.1 38.7 Glucose Level 101 mg/dL (70-99) 111 mg/dL (70-99) Calcium Level 7.2 mg/dL (8.5-10.1) 7.0 mg/dL (8.5-10.1) Phosphorus Level 3.6 mg/dL (2.6-4.7) 5.2 mg/dL (2.6-4.7) Magnesium Level 2.1 mg/dL (1.8-2.4) 2.2 mg/dL (1.8-2.4) Vancomycin Level Trough 22.4 mcg/mL (10.0-20.0) Vancomycin Last Dose Date 01/14/19 Vancomycin Last Dose Time 0900 Laboratory Tests Test 01/14/19 22:25 01/15/19 05:20 Vancomycin Level Trough 22.4 mcg/mL (10.0-20.0) Vancomycin Last Dose Date 01/14/19 Vancomycin Last Dose Time 0900 White Blood Count 19.3 x10^3/uL (4.0-11.0) Red Blood Count 2.27 x10^6/uL (4.30-5.70) Hemoglobin 8.3 g/dL (13.0-17.5) Hematocrit 24.4 % (39.0-53.0) Mean Corpuscular Volume 108 fL (79-100) Mean Corpuscular Hemoglobin 37 pg (25-35) Mean Corpuscular Hemoglobin Concent 34 g/dL (31-37) Red Cell Distribution Width 25.5 % (11.5-14.5) Platelet Count 76 x10^3/uL (140-400) Neutrophils (%) (Auto) 87 % (31-73) Lymphocytes (%) (Auto) 5 % (24-48) Monocytes (%) (Auto) 6 % (0-9) Eosinophils (%) (Auto) 2 % (0-3) Basophils (%) (Auto) 0 % (0-3) Neutrophils # (Auto) 16.7 x10^3/uL (1.8-7.7) Lymphocytes # (Auto) 1.0 x10^3/uL (1.0-4.8) Monocytes # (Auto) 1.2 x10^3/uL (0.0-1.1) Eosinophils # (Auto) 0.3 x10^3/uL (0.0-0.7) Basophils # (Auto) 0.1 x10^3/uL (0.0-0.2) Sodium Level 132 mmol/L (136-145) Potassium Level 3.9 mmol/L (3.5-5.1) Chloride Level 102 mmol/L (98-107) Carbon Dioxide Level 18 mmol/L (21-32) Anion Gap 12 (6-14) Blood Urea Nitrogen 47 mg/dL (8-26) Creatinine 1.9 mg/dL (0.7-1.3) Estimated GFR (Cockcroft-Gault) 38.7 Glucose Level 111 mg/dL (70-99) Calcium Level 7.0 mg/dL (8.5-10.1) Phosphorus Level 5.2 mg/dL (2.6-4.7) Magnesium Level 2.2 mg/dL (1.8-2.4) Microbiology 01/12/19 Blood Culture - Preliminary, Resulted NO GROWTH AFTER 2 DAYS 01/04/19 Urine Culture - Final, Complete 01/04/19 Urine Culture Result 1 (DONALD) - Final, Complete Medications Current Medications Iohexol (Omnipaque 240 Mg/ml) 30 ml 1X ONCE PO Last administered on 01/04/19at 15:15; Start 01/04/19 at 15:15; Stop 01/04/19 at 15:17; Status DC Iohexol (Omnipaque 300 Mg/ml) 75 ml 1X ONCE IV Last administered on 01/04/19at 16:20; Start 01/04/19 at 15:15; Stop 01/04/19 at 15:17; Status DC Info (CONTRAST GIVEN -- Rx MONITORING) 1 each PRN DAILY PRN MC SEE COMMENTS; Start 01/04/19 at 15:30; Stop 01/06/19 at 15:29; Status DC Multivitamins 10 ml/Thiamine HCl 100 mg/Folic Acid 1 mg/Sodium Chloride 1,011.2 ml @ 100 mls/ hr DAILY IV Last administered on 01/08/19at 08:12; Start 01/04/19 at 18:00; Stop 01/08/19 at 19:07; Status DC Chlordiazepoxide (Librium) 50 mg PRN Q1HR PRN PO For CIWA 8-14 Last administered on 01/04/19at 18:17; Start 01/04/19 at 17:45 Chlordiazepoxide (Librium) 100 mg PRN Q1HR PRN PO For CIWA 15 or greater Last administered on 01/05/19at 06:27; Start 01/04/19 at 17:45 Lorazepam (Ativan) 4 mg PRN Q1HR PRN PO For CIWA 8-14 Last administered on 01/04/19at 18:17; Start 01/04/19 at 17:45; Stop 01/10/19 at 07:34; Status DC Lorazepam (Ativan) 8 mg PRN Q1HR PRN PO For CIWA 15 or greater; Start 01/04/19 at 17:45; Stop 01/10/19 at 07:34; Status DC Haloperidol Lactate (Haldol Inj) 5 mg PRN Q4HRS PRN IVP Hallucinatns,Confusn,Delirium Last administered on 01/13/19at 11:22; Start 01/04/19 at 17:45 Diphenhydramine HCl (Benadryl) 25 mg PRN Q15MIN PRN IVP EPS symptoms 2'Haldol admin; Start 01/04/19 at 17:45 Clonidine HCl (Catapres) 0.1 mg PRN Q1HR PRN PO SBP > 180 or DBP > 100, MRX3 Last administered on 01/08/19at 07:18; Start 01/04/19 at 17:45; Stop 01/08/19 at 08:58; Status DC Lorazepam (Ativan Inj) 2 mg PRN Q1HR PRN IV For CIWA 8-14 Last administered on 01/11/19at 22:50; Start 01/04/19 at 19:15 Lorazepam (Ativan Inj) 4 mg PRN Q1HR PRN IV For CIWA 15 or greater Last administered on 01/05/19at 06:28; Start 01/04/19 at 19:15 Lorazepam (Ativan Inj) 2 mg PRN Q15MIN PRN IV SEE COMMENTS; Start 01/04/19 at 19:15; Status UNV Lorazepam (Ativan Inj) 4 mg PRN Q15MIN PRN IV SEE COMMENTS; Start 01/04/19 at 19:15; Status UNV Ondansetron HCl (Zofran) 4 mg PRN Q6HRS PRN IV NAUSEA/VOMITING Last administered on 01/04/19at 19:34; Start 01/04/19 at 19:30 Pantoprazole Sodium (PROTONIX VIAL for IV PUSH) 40 mg DAILYAC IVP Last administered on 01/06/19at 10:36; Start 01/06/19 at 10:00; Stop 01/06/19 at 12:17; Status DC Phytonadione (Vitamin K Ampule) 10 mg 1X ONCE SQ Last administered on at 10:36; Start 01/06/19 at 10:15; Stop 01/06/19 at 10:16; Status DC Piperacillin Sod/ Tazobactam Sod (Zosyn Per Pharmacy) 1 each PRN DAILY PRN MC SEE COMMENTS; Start 01/06/19 at 10:30 Piperacillin Sod/ Tazobactam Sod 3.375 gm/Sodium Chloride 50 ml @ 100 mls/hr Q6HRS IV Last administered on 01/15/19at 11:51; Start 01/06/19 at 11:00 Lactulose (Lactulose) 30 gm Q6HRS NG Last administered on 01/09/19at 05:53; Start 01/06/19 at 12:00; Stop 01/09/19 at 10:51; Status DC Metronidazole 100 ml @ 100 mls/hr Q8HRS IV Last administered on 01/09/19at 05:53; Start 01/06/19 at 14:00; Stop 01/09/19 at 07:19; Status DC Pantoprazole Sodium 80 mg/ Sodium Chloride 100 ml @ 10 mls/hr Q10H IV Last administered on 01/10/19at 02:31; Start 01/06/19 at 12:30; Stop 01/10/19 at 12:11; Status DC Octreotide Acetate 500 mcg/ Sodium Chloride 101 ml @ 0 mls/hr CONT PRN IV SEE I/O RECORD Last administered on 01/08/19at 06:08; Start 01/06/19 at 12:15; Stop 01/08/19 at 10:48; Status DC Norepinephrine Bitartrate 250 ml @ 14.235 mls/ hr CONT PRN IV SEE I/O RECORD; Start 01/06/19 at 20:15; Stop 01/13/19 at 13:28; Status DC Albumin Human 100 ml @ 100 mls/hr 1X ONCE IV Last administered on 01/06/19at 21:30; Start 01/06/19 at 20:15; Stop 01/06/19 at 21:14; Status DC Phytonadione (Vitamin K Ampule) 10 mg 1X ONCE SQ Last administered on 01/07/19at 13:04; Start 01/07/19 at 11:45; Stop 01/07/19 at 11:46; Status DC Albuterol/ Ipratropium (Duoneb) 3 ml RTQID NEB Last administered on 01/15/19at 11:19; Start 01/07/19 at 16:00 Sodium Chloride 1,000 ml @ 75 mls/hr [id number] IV Last administered on 01/08/19at 23:47; Start 01/08/19 at 06:00; Stop 01/09/19 at 10:19; Status DC Labetalol HCl (Normodyne Iv Push) 10 mg PRN Q4HRS PRN IVP HYPERTENSION; Start 01/08/19 at 09:00 Potassium Bicarbonate (Potassium Effervescent Tablet) 40 meq 1X ONCE PEG Last administered on 01/08/19at 12:24; Start 01/08/19 at 11:30; Stop 01/08/19 at 11:33; Status DC Potassium Bicarbonate (Potassium Effervescent Tablet) 40 meq 1X ONCE PEG Last administered on 01/08/19at 16:06; Start 01/08/19 at 16:00; Stop 01/08/19 at 16:01; Status DC Potassium Bicarbonate (Potassium Effervescent Tablet) 80 meq 1X ONCE PEG Last administered on 01/09/19at 06:58; Start 01/09/19 at 06:15; Stop 01/09/19 at 06:21; Status DC Artificial Tears (Artificial Tears) 1 drop PRN Q15MIN PRN OU DRY EYE Last administered on 01/09/19at 10:11; Start 01/09/19 at 10:00 Dextrose/Sodium Chloride 1,000 ml @ 75 mls/hr [id number] IV Last administered on 01/09/19at 11:03; Start 01/09/19 at 10:30; Stop 01/09/19 at 12:20; Status DC Potassium Chloride/Water 50 ml @ 50 mls/hr Q1H IV ; Start 01/09/19 at 10:30; Stop 01/09/19 at 12:29; Status UNV Potassium Chloride/Water 100 ml @ 100 mls/hr Q1H IV ; Start 01/09/19 at 11:00; Stop 01/09/19 at 11:00; Status DC Lactulose (Lactulose) 30 gm BID NG Last administered on 01/09/19at 20:52; Start 01/09/19 at 21:00; Stop 01/10/19 at 13:57; Status DC Dextrose 1,000 ml @ 100 mls/hr Q10H IV Last administered on 01/13/19at 11:22; Start 01/09/19 at 12:30; Stop 01/14/19 at 13:58; Status DC Info (Tpn Per Pharmacy) 1 each PRN DAILY PRN MC SEE COMMENTS Last administered on 01/12/19at 13:31; Start 01/09/19 at 15:15; Stop 01/13/19 at 13:27; Status DC Potassium Chloride 50 meq/ Potassium Phosphate 13.6 mmol/Magnesium Sulfate 10 meq/ Calcium Gluconate 10 meq/ Multivitamins 10 ml/Chromium/ Copper/Manganese/ Seleni/Zn 1 ml/ Total Parenteral Nutrition/Amino Acids/Dextrose/ Fat Emulsion Intravenous 1,512 ml @ 63 mls/hr TPN CONT IV Last administered on 01/09/19at 21:41; Start 01/09/19 at 22:00; Stop 01/10/19 at 21:59; Status DC Potassium Chloride/Water 50 ml @ 50 mls/hr Q1H IV Last administered on 01/09/19at 20:51; Start 01/09/19 at 18:00; Stop 01/09/19 at 21:59; Status DC Potassium Phosphate 13.6 mmol/Dextrose 254.5333 ml @ 62.646 m... 1X ONCE IV Last administered on 01/09/19at 21:49; Start 01/09/19 at 22:00; Stop 01/10/19 at 08:03; Status DC Potassium Chloride/Water 50 ml @ 50 mls/hr Q1H IV Last administered on 01/10/19at 11:41; Start 01/10/19 at 08:00; Stop 01/10/19 at 11:59; Status DC Sodium Phosphate 40 mmol/Dextrose 263.3333 ml @ 62.5 mls/hr 1X ONCE IV ; Start 01/10/19 at 08:00; Stop 01/10/19 at 08:49; Status DC Potassium Phosphate 12 mmol/ Sodium Chloride 254 ml @ 125 mls/hr Q2H IV Last administered on 01/10/19at 15:24; Start 01/10/19 at 08:00; Stop 01/10/19 at 11:59; Status DC Potassium Chloride 40 meq/ Potassium Acetate 40 meq/Potassium Phosphate 15 mmol/ Magnesium Sulfate 10 meq/Calcium Gluconate 10 meq/ Multivitamins 10 ml/Chromium/ Copper/Manganese/ Seleni/Zn 1 ml/ Total Parenteral Nutrition/Amino Acids/Dextrose/ Fat Emulsion Intravenous 1,512 ml @ 63 mls/hr TPN CONT IV Last administered on 01/10/19at 22:08; Start 01/10/19 at 22:00; Stop 01/11/19 at 21:59; Status DC Pantoprazole Sodium (PROTONIX VIAL for IV PUSH) 40 mg BIDAC IVP Last administered on 01/14/19at 08:54; Start 01/10/19 at 16:30; Stop 01/14/19 at 11:38; Status DC Sodium Chloride 250 ml @ 250 mls/hr 1X ONCE IV Last administered on 01/10/19 19:30; Start 01/10/19 at 19:30; Stop 01/10/19 at 20:29; Status DC Lorazepam (Ativan Inj) 1 mg PRN Q6HRS PRN IV ANXIETY / AGITATION Last administered on 01/15/19at 00:38; Start 01/10/19 at 23:15 Potassium Chloride 40 meq/ Potassium Acetate 40 meq/Potassium Phosphate 15 mmol/ Magnesium Sulfate 10 meq/Calcium Gluconate 10 meq/ Multivitamins 10 ml/Chromium/ Copper/Manganese/ Seleni/Zn 1 ml/ Total Parenteral Nutrition/Amino Acids/Dextrose/ Fat Emulsion Intravenous 1,512 ml @ 63 mls/hr TPN CONT IV Last administered on 01/11/19at 21:34; Start 01/11/19 at 22:00; Stop 01/12/19 at 21:59; Status DC Morphine Sulfate (Morphine Sulfate) 2 mg 1X ONCE IV Last administered on 01/12/19at 10:40; Start 01/12/19 at 09:30; Stop 01/12/19 at 09:31; Status DC Potassium Phosphate 13.6 mmol/Dextrose 104.5333 ml @ 52.267 m... Q2H IV Last administered on 01/12/19at 13:22; Start 01/12/19 at 11:30; Stop 01/12/19 at 15:29; Status DC Vancomycin HCl (Vanco Per Pharmacy) 1 each PRN DAILY PRN MC SEE COMMENTS Last administered on 01/15/19at 03:09; Start 01/12/19 at 11:15; Stop 01/15/19 at 08:54; Status DC Vancomycin HCl 2 gm/Sodium Chloride 500 ml @ 250 mls/hr ONCE ONCE IV Last administered on 01/12/19at 13:22; Start 01/12/19 at 12:00; Stop 01/12/19 at 13:59; Status DC Potassium Chloride 40 meq/ Potassium Acetate 40 meq/Potassium Phosphate 15 mmol/ Magnesium Sulfate 10 meq/Calcium Gluconate 10 meq/ Multivitamins 10 ml/Chromium/ Copper/Manganese/ Seleni/Zn 1 ml/ Total Parenteral Nutrition/Amino Acids/Dextrose/ Fat Emulsion Intravenous 1,512 ml @ 63 mls/hr TPN CONT IV Last administered on 01/12/19at 21:48; Start 01/12/19 at 22:00; Stop 01/13/19 at 21:59; Status DC Vancomycin HCl 2 gm/Sodium Chloride 500 ml @ 250 mls/hr 1X ONCE IV Last administered on 01/13/19at 08:27; Start 01/13/19 at 08:00; Stop 01/13/19 at 09:59; Status DC Vancomycin HCl 1.25 gm/Sodium Chloride 250 ml @ 167 mls/hr Q12H IV Last administered on 01/14/19at 08:54; Start 01/13/19 at 21:00; Stop 01/14/19 at 23:22; Status DC Vancomycin HCl (Vancomycin Trough Level) 1 each 1X ONCE MC ; Start 01/14/19 at 20:30; Stop 01/15/19 at 10:33; Status DC Lactobacillus Rhamnosus (Culturelle) 1 cap BID PO Last administered on 01/15/19at 08:21; Start 01/14/19 at 21:00 Pantoprazole Sodium (Protonix) 40 mg DAILYAC PO Last administered on 01/15/19at 08:21; Start 01/15/19 at 07:30 Dextrose/Sodium Chloride 1,000 ml @ 150 mls/hr Q6H40M IV Last administered on 01/15/19at 11:00; Start 01/14/19 at 14:00 Vancomycin HCl 1 gm/Sodium Chloride 250 ml @ 250 mls/hr Q12H IV Last administered on 01/15/19at 06:18; Start 01/15/19 at 06:00; Stop 01/15/19 at 08:54; Status DC Vancomycin HCl (Vancomycin Trough Level) 1 each 1X ONCE MC ; Start 01/16/19 at 17:30; Stop 01/16/19 at 17:30; Status DC Active Scripts Active Reported Omeprazole 40 Mg Capsule.dr Warren Cap PO DAILY Vitals/I & O Vital Sign - Last 24 Hours 01/14/19 01/14/19 01/14/19 01/14/19 16:00 16:15 20:00 20:04 Temp 97.8 97.9 97.8 97.9 Pulse 84 87 Resp 22 B/P (MAP) 97/65 (76) 101/66 (78) Pulse Ox 95 94 96 94 O2 Delivery Room Air Room Air Room Air Room Air 01/14/19 01/14/19 01/15/19 01/15/19 21:00 23:57 03:00 07:15 Temp 97.5 97.5 97.5 97.5 Pulse 93 92 Resp B/P (MAP) 146/82 (103) 120/68 (85) Pulse Ox 95 95 95 O2 Delivery Room Air Room Air Room Air Room Air 01/15/19 01/15/19 01/15/19 01/15/19 08:00 08:17 11:11 11:22 Temp 97.6 97.9 97.6 97.9 Pulse 85 87 Resp B/P (MAP) 103/67 (79) 108/61 (77) Pulse Ox 96 94 95 O2 Delivery Room Air Room Air Room Air Room Air Intake and Output 01/14/19 01/14/19 01/15/19 14:59 22:59 06:59 Intake Total 600 ml 750 ml 1100 ml Output Total 300 ml 1100 ml Balance 600 ml 450 ml 0 ml BRONSON STILL MD Jan 15, 2019 12:52
[2019-01-15 15:00] VITALS: BP 104/63
--- NOTE | 2019-01-15 17:23 | RAD ---
EXAM: Supine AP view of the abdomen DATE: 01/15/2019 12:54 PM INDICATION: Abdominal distention, pain COMPARISON: 01/10/2019 FINDINGS: Several loops of dilated small bowel are seen measuring up to 4 cm, new compared to 01/10/2019. Findings may be seen with ileus or distal small bowel obstruction. Moderate colonic stool content. No abnormal soft tissue mass effect. No suspicious calcifications are seen. Evaluation for free intraperitoneal gas is limited on this supine exam. IMPRESSION: 1. Diffuse dilation of small bowel loops may be seen with ileus or distal obstruction. CT may provide additional details. Electronically signed by: Lorenzo Richard MD (01/15/2019 5:19 PM) [facility]
[2019-01-15 19:00] VITALS: BP 107/70
[2019-01-15 22:57] VITALS: BP 104/74
[2019-01-16] MEDS: PIPERACILLIN/TAZOBACTAM 3.375 GM in IV NORMAL SALINE 50ML 50 ML IV SCH ×4 (00:01→19:13)
[2019-01-16] MEDS: IV DEXTROSE 5% - 0.9 % NACL 1,000 ML IV SCH ×3 (00:01→13:13)
[2019-01-16 03:00] VITALS: BP 98/73
[2019-01-16 07:00] LABS: BASO # 0.2 x10^3/uL (0.0-0.2); BASO % 1 % (0-3); EOS # 0.3 x10^3/uL (0.0-0.7); EOS % 1 % (0-3); HEMOGLOBIN 7.7 g/dL (13.0-17.5); LYMPH # 0.8 x10^3/uL (1.0-4.8); LYMPH % 4 % (24-48); MEAN CORPUSCULAR HEMOGLOBIN 37 pg (25-35); MEAN CORPUSCULAR HGB CONC 34 g/dL (31-37); MEAN CORPUSCULAR VOLUME 109 fL (79-100); MONO # 0.9 x10^3/uL (0.0-1.1); MONO % 5 % (0-9); NEUT # 16.6 x10^3/uL (1.8-7.7); NEUT % 89 % (31-73); PLATELET COUNT 94 x10^3/uL (140-400); RED BLOOD COUNT 2.11 x10^6/uL (4.30-5.70); RED CELL DISTRIBUTION WIDTH 26.3 % (11.5-14.5); WHITE BLOOD COUNT 18.8 x10^3/uL (4.0-11.0)
[2019-01-16 07:06] VITALS: BP 122/71
[2019-01-16 07:25] LABS: CREATININE 2.8 mg/dL (0.7-1.3); GFR 24.7; MAGNESIUM 2.2 mg/dL (1.8-2.4); PHOSPHORUS 7.3 mg/dL (2.6-4.7)
[2019-01-16] MEDS: IPRATRPIUM/ALBUTEROL 0.5/2.5MG 3 ML NEBU. NEB SCH ×4 (07:46→19:51)
--- NOTE | 2019-01-16 07:51 | NUR ---
Pt restless. Stated he "needs something to do." Is also pulling at gown and pillows. Pt has been reaching for water; when asked if he wanted assistance to drink, he declined. Pt also declined breakfast.
[2019-01-16] MEDS: PANTOPRAZOLE 40 MG TABLET.DR. PO SCH (07:54)
[2019-01-16] MEDS: LACTOBACILLUS RHAMNOSUS GG 1 CAPSULE. PO SCH ×2 (07:54→20:31)
[2019-01-16 10:00] LABS: % BANDS 4 % (0-9); % EOS 1 % (0-5); % LYMPHS 6 % (24-48); % MONOS 2 % (0-10); % MYELOS 2 % (0-0); % SEGS 85 % (35-66); PLT ESTIMATE DECREASED (ADEQUATE)
[2019-01-16 10:01] LABS: ANISOCYTOSIS MARKED
--- NOTE | 2019-01-16 10:03 | PDOC ---
Renal-Progress Notes Subjective Notes Notes CONFUSED, NEEDING 1 ON 1 History of Present Illness Hx of present illness NOT GETTING ANY BETTER Vitals Vitals Vital Signs Date Time Temp Pulse Resp B/P (MAP) Pulse Ox O2 Delivery O2 Flow Rate FiO2 01/16/19 08:00 Room Air 01/16/19 07:47 96 01/16/19 07:06 96.2 86 24 122/71 (88) 96.2 01/15/19 22:57 15.0 Weight Weight [ ] I.O. Intake and Output Intake and Output 01/16/19 06:59 Intake Total 2600 ml Output Total 900 ml Balance 1700 ml Intake Oral 1550 ml IV Total 1050 ml Output Urine Total 900 ml Labs Labs Laboratory Tests Test 01/16/19 06:30 White Blood Count 18.8 x10^3/uL (4.0-11.0) Red Blood Count 2.11 x10^6/uL (4.30-5.70) Hemoglobin 7.7 g/dL (13.0-17.5) Hematocrit 23.0 % (39.0-53.0) Mean Corpuscular Volume 109 fL (79-100) Mean Corpuscular Hemoglobin 37 pg (25-35) Mean Corpuscular Hemoglobin Concent 34 g/dL (31-37) Red Cell Distribution Width 26.3 % (11.5-14.5) Platelet Count 94 x10^3/uL (140-400) Neutrophils (%) (Auto) 89 % (31-73) Lymphocytes (%) (Auto) 4 % (24-48) Monocytes (%) (Auto) 5 % (0-9) Eosinophils (%) (Auto) 1 % (0-3) Basophils (%) (Auto) 1 % (0-3) Neutrophils # (Auto) 16.6 x10^3/uL (1.8-7.7) Lymphocytes # (Auto) 0.8 x10^3/uL (1.0-4.8) Monocytes # (Auto) 0.9 x10^3/uL (0.0-1.1) Eosinophils # (Auto) 0.3 x10^3/uL (0.0-0.7) Basophils # (Auto) 0.2 x10^3/uL (0.0-0.2) Sodium Level 132 mmol/L (136-145) Potassium Level 4.0 mmol/L (3.5-5.1) Chloride Level 102 mmol/L (98-107) Carbon Dioxide Level 17 mmol/L (21-32) Anion Gap 13 (6-14) Blood Urea Nitrogen 60 mg/dL (8-26) Creatinine 2.8 mg/dL (0.7-1.3) Estimated GFR (Cockcroft-Gault) 24.7 Glucose Level 124 mg/dL (70-99) Calcium Level 7.0 mg/dL (8.5-10.1) Phosphorus Level 7.3 mg/dL (2.6-4.7) Magnesium Level 2.2 mg/dL (1.8-2.4) Micro Micro Microbiology 01/12/19 Blood Culture - Preliminary, Resulted NO GROWTH AFTER 3 DAYS 01/04/19 Urine Culture - Final, Complete 01/04/19 Urine Culture Result 1 (DONALD) - Final, Complete Review of Systems Constitutional: yes: other (CONFUSION PERSISTS) Physical Exam General Appearance: no apparent distress Skin: warm Respiratory: decreased breath sounds Heart: S1S2 Abdomen: soft, bowel sounds present Genitourinary: bladder flat, no mass Extremities: pulses present Neurology: alert Assessment Assessment IMP MILD DEE DEE-CR UP TO 2.8 HYPERNATREMIA-RESOLVED 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
--- NOTE | 2019-01-16 10:07 | PDOC ---
PROGRESS NOTES Assessment Problems Medical Problems: (1) Alcoholic liver disease Status: Acute (2) Cholelithiasis Status: Acute (3) Colitis Status: Acute (4) Jaundice Status: Acute (5) Pancreatitis Status: Acute (6) Thrombocytopenia Status: Acute Metabolic and toxic encephalopathy. Alcohol intoxication and alcoholism On 1:1 nursing due to impulsivity Plan Treat medical diseases. Hold on EEG, given improvement Subjective Denies pain Objective Vital Signs Date Time Temp Pulse Resp B/P (MAP) Pulse Ox O2 Delivery O2 Flow Rate FiO2 01/16/19 08:00 Room Air 01/16/19 07:47 96 01/16/19 07:06 96.2 86 24 122/71 (88) 96.2 01/15/19 22:57 15.0 Intake and Output 01/16/19 06:59 Intake Total 2600 ml Output Total 900 ml Balance 1700 ml Intake Oral 1550 ml IV Total 1050 ml Output Urine Total 900 ml PHYSICAL EXAM Jaundiced Alert. Oriented to place and person. PERRL. EOMI. CN: no focal findings. Muscle tone: normal. Muscle strength: 4/5. At first he refuses to move his arms, but is able to keep them up when I lift them DTR: 1+ Plantar reflex: flexor Gait: not examined in bed. Sensory exam: no abnormal findings. Cerebellar: some bilateral dysmetria mainly due to weakness Review of Relevant I have reviewed the following items pierre (where applicable) has been applied. Labs Laboratory Tests Test 01/14/19 22:25 01/15/19 05:20 01/16/19 06:30 Vancomycin Level Trough 22.4 mcg/mL (10.0-20.0) Vancomycin Last Dose Date 01/14/19 Vancomycin Last Dose Time 0900 White Blood Count 19.3 x10^3/uL (4.0-11.0) 18.8 x10^3/uL (4.0-11.0) Red Blood Count 2.27 x10^6/uL (4.30-5.70) 2.11 x10^6/uL (4.30-5.70) Hemoglobin 8.3 g/dL (13.0-17.5) 7.7 g/dL (13.0-17.5) Hematocrit 24.4 % (39.0-53.0) 23.0 % (39.0-53.0) Mean Corpuscular Volume 108 fL (79-100) 109 fL (79-100) Mean Corpuscular Hemoglobin 37 pg (25-35) 37 pg (25-35) Mean Corpuscular Hemoglobin Concent 34 g/dL (31-37) 34 g/dL (31-37) Red Cell Distribution Width 25.5 % (11.5-14.5) 26.3 % (11.5-14.5) Platelet Count 76 x10^3/uL (140-400) 94 x10^3/uL (140-400) Neutrophils (%) (Auto) 87 % (31-73) 89 % (31-73) Lymphocytes (%) (Auto) 5 % (24-48) 4 % (24-48) Monocytes (%) (Auto) 6 % (0-9) 5 % (0-9) Eosinophils (%) (Auto) 2 % (0-3) 1 % (0-3) Basophils (%) (Auto) 0 % (0-3) 1 % (0-3) Neutrophils # (Auto) 16.7 x10^3/uL (1.8-7.7) 16.6 x10^3/uL (1.8-7.7) Lymphocytes # (Auto) 1.0 x10^3/uL (1.0-4.8) 0.8 x10^3/uL (1.0-4.8) Monocytes # (Auto) 1.2 x10^3/uL (0.0-1.1) 0.9 x10^3/uL (0.0-1.1) Eosinophils # (Auto) 0.3 x10^3/uL (0.0-0.7) 0.3 x10^3/uL (0.0-0.7) Basophils # (Auto) 0.1 x10^3/uL (0.0-0.2) 0.2 x10^3/uL (0.0-0.2) Sodium Level 132 mmol/L (136-145) 132 mmol/L (136-145) Potassium Level 3.9 mmol/L (3.5-5.1) 4.0 mmol/L (3.5-5.1) Chloride Level 102 mmol/L (98-107) 102 mmol/L (98-107) Carbon Dioxide Level 18 mmol/L (21-32) 17 mmol/L (21-32) Anion Gap 12 (6-14) 13 (6-14) Blood Urea Nitrogen 47 mg/dL (8-26) 60 mg/dL (8-26) Creatinine 1.9 mg/dL (0.7-1.3) 2.8 mg/dL (0.7-1.3) Estimated GFR (Cockcroft-Gault) 38.7 24.7 Glucose Level 111 mg/dL (70-99) 124 mg/dL (70-99) Calcium Level 7.0 mg/dL (8.5-10.1) 7.0 mg/dL (8.5-10.1) Phosphorus Level 5.2 mg/dL (2.6-4.7) 7.3 mg/dL (2.6-4.7) Magnesium Level 2.2 mg/dL (1.8-2.4) 2.2 mg/dL (1.8-2.4) Segmented Neutrophils % 85 % (35-66) Band Neutrophils % 4 % (0-9) Lymphocytes % 6 % (24-48) Monocytes % 2 % (0-10) Eosinophils % 1 % (0-5) Myelocytes % 2 % (0-0) Platelet Estimate Decreased (ADEQUATE) Large Platelets Few Anisocytosis Marked Macrocytosis Present Laboratory Tests Test 01/16/19 06:30 White Blood Count 18.8 x10^3/uL (4.0-11.0) Red Blood Count 2.11 x10^6/uL (4.30-5.70) Hemoglobin 7.7 g/dL (13.0-17.5) Hematocrit 23.0 % (39.0-53.0) Mean Corpuscular Volume 109 fL (79-100) Mean Corpuscular Hemoglobin 37 pg (25-35) Mean Corpuscular Hemoglobin Concent 34 g/dL (31-37) Red Cell Distribution Width 26.3 % (11.5-14.5) Platelet Count 94 x10^3/uL (140-400) Neutrophils (%) (Auto) 89 % (31-73) Lymphocytes (%) (Auto) 4 % (24-48) Monocytes (%) (Auto) 5 % (0-9) Eosinophils (%) (Auto) 1 % (0-3) Basophils (%) (Auto) 1 % (0-3) Neutrophils # (Auto) 16.6 x10^3/uL (1.8-7.7) Lymphocytes # (Auto) 0.8 x10^3/uL (1.0-4.8) Monocytes # (Auto) 0.9 x10^3/uL (0.0-1.1) Eosinophils # (Auto) 0.3 x10^3/uL (0.0-0.7) Basophils # (Auto) 0.2 x10^3/uL (0.0-0.2) Segmented Neutrophils % 85 % (35-66) Band Neutrophils % 4 % (0-9) Lymphocytes % 6 % (24-48) Monocytes % 2 % (0-10) Eosinophils % 1 % (0-5) Myelocytes % 2 % (0-0) Platelet Estimate Decreased (ADEQUATE) Large Platelets Few Anisocytosis Marked Macrocytosis Present Sodium Level 132 mmol/L (136-145) Potassium Level 4.0 mmol/L (3.5-5.1) Chloride Level 102 mmol/L (98-107) Carbon Dioxide Level 17 mmol/L (21-32) Anion Gap 13 (6-14) Blood Urea Nitrogen 60 mg/dL (8-26) Creatinine 2.8 mg/dL (0.7-1.3) Estimated GFR (Cockcroft-Gault) 24.7 Glucose Level 124 mg/dL (70-99) Calcium Level 7.0 mg/dL (8.5-10.1) Phosphorus Level 7.3 mg/dL (2.6-4.7) Magnesium Level 2.2 mg/dL (1.8-2.4) Microbiology 01/12/19 Blood Culture - Preliminary, Resulted NO GROWTH AFTER 3 DAYS 01/04/19 Urine Culture - Final, Complete 01/04/19 Urine Culture Result 1 (DONALD) - Final, Complete Medications Current Medications Iohexol (Omnipaque 240 Mg/ml) 30 ml 1X ONCE PO Last administered on 01/04/19at 15:15; Start 01/04/19 at 15:15; Stop 01/04/19 at 15:17; Status DC Iohexol (Omnipaque 300 Mg/ml) 75 ml 1X ONCE IV Last administered on 01/04/19at 16:20; Start 01/04/19 at 15:15; Stop 01/04/19 at 15:17; Status DC Info (CONTRAST GIVEN -- Rx MONITORING) 1 each PRN DAILY PRN MC SEE COMMENTS; Start 01/04/19 at 15:30; Stop 01/06/19 at 15:29; Status DC Multivitamins 10 ml/Thiamine HCl 100 mg/Folic Acid 1 mg/Sodium Chloride 1,011.2 ml @ 100 mls/ hr DAILY IV Last administered on 01/08/19at 08:12; Start 01/04/19 at 18:00; Stop 01/08/19 at 19:07; Status DC Chlordiazepoxide (Librium) 50 mg PRN Q1HR PRN PO For CIWA 8-14 Last administered on 01/04/19at 18:17; Start 01/04/19 at 17:45 Chlordiazepoxide (Librium) 100 mg PRN Q1HR PRN PO For CIWA 15 or greater Last administered on 01/05/19at 06:27; Start 01/04/19 at 17:45 Lorazepam (Ativan) 4 mg PRN Q1HR PRN PO For CIWA 8-14 Last administered on 01/04/19at 18:17; Start 01/04/19 at 17:45; Stop 01/10/19 at 07:34; Status DC Lorazepam (Ativan) 8 mg PRN Q1HR PRN PO For CIWA 15 or greater; Start 01/04/19 at 17:45; Stop 01/10/19 at 07:34; Status DC Haloperidol Lactate (Haldol Inj) 5 mg PRN Q4HRS PRN IVP Hallucinatns,Confusn,Delirium Last administered on 01/13/19at 11:22; Start 01/04/19 at 17:45 Diphenhydramine HCl (Benadryl) 25 mg PRN Q15MIN PRN IVP EPS symptoms 2'Haldol admin; Start 01/04/19 at 17:45 Clonidine HCl (Catapres) 0.1 mg PRN Q1HR PRN PO SBP > 180 or DBP > 100, MRX3 Last administered on 01/08/19at 07:18; Start 01/04/19 at 17:45; Stop 01/08/19 at 08:58; Status DC Lorazepam (Ativan Inj) 2 mg PRN Q1HR PRN IV For CIWA 8-14 Last administered on 01/16/19at 07:54; Start 01/04/19 at 19:15 Lorazepam (Ativan Inj) 4 mg PRN Q1HR PRN IV For CIWA 15 or greater Last administered on 01/05/19at 06:28; Start 01/04/19 at 19:15 Lorazepam (Ativan Inj) 2 mg PRN Q15MIN PRN IV SEE COMMENTS; Start 01/04/19 at 19:15; Status UNV Lorazepam (Ativan Inj) 4 mg PRN Q15MIN PRN IV SEE COMMENTS; Start 01/04/19 at 19:15; Status UNV Ondansetron HCl (Zofran) 4 mg PRN Q6HRS PRN IV NAUSEA/VOMITING Last administered on 01/04/19at 19:34; Start 01/04/19 at 19:30 Pantoprazole Sodium (PROTONIX VIAL for IV PUSH) 40 mg DAILYAC IVP Last administered on 01/06/19at 10:36; Start 01/06/19 at 10:00; Stop 01/06/19 at 12:17; Status DC Phytonadione (Vitamin K Ampule) 10 mg 1X ONCE SQ Last administered on 01/06/19at 10:36; Start 01/06/19 at 10:15; Stop 01/06/19 at 10:16; Status DC Piperacillin Sod/ Tazobactam Sod (Zosyn Per Pharmacy) 1 each PRN DAILY PRN MC SEE COMMENTS; Start 01/06/19 at 10:30 Piperacillin Sod/ Tazobactam Sod 3.375 gm/Sodium Chloride 50 ml @ 100 mls/hr Q6HRS IV Last administered on 01/16/19at 06:43; Start 01/06/19 at 11:00 Lactulose (Lactulose) 30 gm Q6HRS NG Last administered on 01/09/19at 05:53; Start 01/06/19 at 12:00; Stop 01/09/19 at 10:51; Status DC Metronidazole 100 ml @ 100 mls/hr Q8HRS IV Last administered on 01/09/19at 05:53; Start 01/06/19 at 14:00; Stop 7/17/19 at 07:19; Status DC Pantoprazole Sodium 80 mg/ Sodium Chloride 100 ml @ 10 mls/hr Q10H IV Last administered on 01/10/19at 02:31; Start 01/06/19 at 12:30; Stop 01/10/19 at 12:11; Status DC Octreotide Acetate 500 mcg/ Sodium Chloride 101 ml @ 0 mls/hr CONT PRN IV SEE I/O RECORD Last administered on 01/08/19at 06:08; Start 01/06/19 at 12:15; Stop 01/08/19 at 10:48; Status DC Norepinephrine Bitartrate 250 ml @ 14.235 mls/ hr CONT PRN IV SEE I/O RECORD; Start 01/06/19 at 20:15; Stop 01/13/19 at 13:28; Status DC Albumin Human 100 ml @ 100 mls/hr 1X ONCE IV Last administered on 01/06/19at 21:30; Start 01/06/19 at 20:15; Stop 01/06/19 at 21:14; Status DC Phytonadione (Vitamin K Ampule) 10 mg 1X ONCE SQ Last administered on 01/07/19at 13:04; Start 01/07/19 at 11:45; Stop 01/07/19 at 11:46; Status DC Albuterol/ Ipratropium (Duoneb) 3 ml RTQID NEB Last administered on 01/16/19at 0 7:46; Start 01/07/19 at 16:00 Sodium Chloride 1,000 ml @ 75 mls/hr [id number] IV Last administered on 01/08/19at 23:47; Start 01/08/19 at 06:00; Stop 01/09/19 at 10:19; Status DC Labetalol HCl (Normodyne Iv Push) 10 mg PRN Q4HRS PRN IVP HYPERTENSION; Start 01/08/19 at 09:00 Potassium Bicarbonate (Potassium Effervescent Tablet) 40 meq 1X ONCE PEG Last administered on 01/08/19at 12:24; Start 01/08/19 at 11:30; Stop 01/08/19 at 11:33; Status DC Potassium Bicarbonate (Potassium Effervescent Tablet) 40 meq 1X ONCE PEG Last administered on 01/08/19at 16:06; Start 01/08/19 at 16:00; Stop 01/08/19 at 16:01; Status DC Potassium Bicarbonate (Potassium Effervescent Tablet) 80 meq 1X ONCE PEG Last administered on 01/09/19at 06:58; Start 01/09/19 at 06:15; Stop 01/09/19 at 06:21; Status DC Artificial Tears (Artificial Tears) 1 drop PRN Q15MIN PRN OU DRY EYE Last administered on 01/09/19at 10:11; Start 01/09/19 at 10:00 Dextrose/Sodium Chloride 1,000 ml @ 75 mls/hr [id number] IV Last administered on 01/09/19at 11:03; Start 01/09/19 at 10:30; Stop 01/09/19 at 12:20; Status DC Potassium Chloride/Water 50 ml @ 50 mls/hr Q1H IV ; Start 01/09/19 at 10:30; Stop 01/09/19 at 12:29; Status UNV Potassium Chloride/Water 100 ml @ 100 mls/hr Q1H IV ; Start 01/09/19 at 11:00; Stop 01/09/19 at 11:00; Status DC Lactulose (Lactulose) 30 gm BID NG Last administered on 01/09/19at 20:52; Start 01/09/19 at 21:00; Stop 01/10/19 at 13:57; Status DC Dextrose 1,000 ml @ 100 mls/hr Q10H IV Last administered on 01/13/19at 11:22; Start 01/09/19 at 12:30; Stop 01/14/19 at 13:58; Status DC Info (Tpn Per Pharmacy) 1 each PRN DAILY PRN MC SEE COMMENTS Last administered on 01/12/19at 13:31; Start 01/09/19 at 15:15; Stop 01/13/19 at 13:27; Status DC Potassium Chloride 50 meq/ Potassium Phosphate 13.6 mmol/Magnesium Sulfate 10 meq/ Calcium Gluconate 10 meq/ Multivitamins 10 ml/Chromium/ Copper/Manganese/ Seleni/Zn 1 ml/ Total Parenteral Nutrition/Amino Acids/Dextrose/ Fat Emulsion Intravenous 1,512 ml @ 63 mls/hr TPN CONT IV Last administered on 01/09/19at 21:41; Start 01/09/19 at 22:00; Stop 01/10/19 at 21:59; Status DC Potassium Chloride/Water 50 ml @ 50 mls/hr Q1H IV Last administered on 01/09/19at 20:51; Start 01/09/19 at 18:00; Stop 01/09/19 at 21:59; Status DC Potassium Phosphate 13.6 mmol/Dextrose 254.5333 ml @ 62.646 m... 1X ONCE IV Last administered on 01/09/19at 21:49; Start 01/09/19 at 22:00; Stop 01/10/19 at 08:03; Status DC Potassium Chloride/Water 50 ml @ 50 mls/hr Q1H IV Last administered on 01/10/19at 11:41; Start 01/10/19 at 08:00; Stop 01/10/19 at 11:59; Status DC Sodium Phosphate 40 mmol/Dextrose 263.3333 ml @ 62.5 mls/hr 1X ONCE IV ; Start 01/10/19 at 08:00; Stop 01/10/19 at 08:49; Status DC Potassium Phosphate 12 mmol/ Sodium Chloride 254 ml @ 125 mls/hr Q2H IV Last administered on 01/10/19at 15:24; Start 01/10/19 at 08:00; Stop 01/10/19 at 11:59; Status DC Potassium Chloride 40 meq/ Potassium Acetate 40 meq/Potassium Phosphate 15 mmol/ Magnesium Sulfate 10 meq/Calcium Gluconate 10 meq/ Multivitamins 10 ml/Chromium/ Copper/Manganese/ Seleni/Zn 1 ml/ Total Parenteral Nutrition/Amino Acids/Dextrose/ Fat Emulsion Intravenous 1,512 ml @ 63 mls/hr TPN CONT IV Last administered on 01/10/19at 22:08; Start 01/10/19 at 22:00; Stop 01/11/19 at 21:59; Status DC Pantoprazole Sodium (PROTONIX VIAL for IV PUSH) 40 mg BIDAC IVP Last administered on 01/14/19at 08:54; Start 01/10/19 at 16:30; Stop 01/14/19 at 1 1:38; Status DC Sodium Chloride 250 ml @ 250 mls/hr 1X ONCE IV Last administered on 01/10/19at 19:30; Start 01/10/19 at 19:30; Stop 01/10/19 at 20:29; Status DC Lorazepam (Ativan Inj) 1 mg PRN Q6HRS PRN IV ANXIETY / AGITATION Last administered on 01/15/19at 00:38; Start 01/10/19 at 23:15 Potassium Chloride 40 meq/ Potassium Acetate 40 meq/Potassium Phosphate 15 mmol/ Magnesium Sulfate 10 meq/Calcium Gluconate 10 meq/ Multivitamins 10 ml/Chromium/ Copper/Manganese/ Seleni/Zn 1 ml/ Total Parenteral Nutrition/Amino Acids/Dextrose/ Fat Emulsion Intravenous 1,512 ml @ 63 mls/hr TPN CONT IV Last administered on 01/11/19at 21:34; Start 01/11/19 at 22:00; Stop 01/12/19 at 21:59; Status DC Morphine Sulfate (Morphine Sulfate) 2 mg 1X ONCE IV Last administered on 01/12/19at 10:40; Start 01/12/19 at 09:30; Stop 01/12/19 at 09:31; Status DC Potassium Phosphate 13.6 mmol/Dextrose 104.5333 ml @ 52.267 m... Q2H IV Last administered on 01/12/19at 13:22; Start 01/12/19 at 11:30; Stop 01/12/19 at 15:29; Status DC Vancomycin HCl (Vanco Per Pharmacy) 1 each PRN DAILY PRN MC SEE COMMENTS Last administered on 01/15/19at 03:09; Start 01/12/19 at 11:15; Stop 01/15/19 at 08:54; Status DC Vancomycin HCl 2 gm/Sodium Chloride 500 ml @ 250 mls/hr ONCE ONCE IV Last administered on 01/12/19at 13:22; Start 01/12/19 at 12:00; Stop 01/12/19 at 13:59; Status DC Potassium Chloride 40 meq/ Potassium Acetate 40 meq/Potassium Phosphate 15 mmol/ Magnesium Sulfate 10 meq/Calcium Gluconate 10 meq/ Multivitamins 10 ml/Chromium/ Copper/Manganese/ Seleni/Zn 1 ml/ Total Parenteral Nutrition/Amino Acids/Dextrose/ Fat Emulsion Intravenous 1,512 ml @ 63 mls/hr TPN CONT IV Last administered on 01/12/19at 21:48; Start 01/12/19 at 22:00; Stop 01/13/19 at 21:59; Status DC Vancomycin HCl 2 gm/Sodium Chloride 500 ml @ 250 mls/hr 1X ONCE IV Last administered on 01/13/19at 08:27; Start 01/13/19 at 08:00; Stop 01/13/19 at 09: 59; Status DC Vancomycin HCl 1.25 gm/Sodium Chloride 250 ml @ 167 mls/hr Q12H IV Last administered on 01/14/19at 08:54; Start 01/13/19 at 21:00; Stop 01/14/19 at 23:22; Status DC Vancomycin HCl (Vancomycin Trough Level) 1 each 1X ONCE MC ; Start 01/14/19 at 20:30; Stop 01/15/19 at 10:33; Status DC Lactobacillus Rhamnosus (Culturelle) 1 cap BID PO Last administered on 01/16/19a t 07:54; Start 01/14/19 at 21:00 Pantoprazole Sodium (Protonix) 40 mg DAILYAC PO Last administered on 01/16/19at 07:54; Start 01/15/19 at 07:30 Dextrose/Sodium Chloride 1,000 ml @ 150 mls/hr Q6H40M IV Last administered on 01/16/19at 04:48; Start 01/14/19 at 14:00 Vancomycin HCl 1 gm/Sodium Chloride 250 ml @ 250 mls/hr Q12H IV Last administered on 01/15/19at 06:18; Start 01/15/19 at 06:00; Stop 01/15/19 at 08:54; Status DC Vancomycin HCl (Vancomycin Trough Level) 1 each 1X ONCE MC ; Start 01/16/19 at 17:30; Stop 01/16/19 at 17:30; Status DC Furosemide (Lasix) 40 mg 1X ONCE IVP ; Start 01/16/19 at 10:15; Stop 01/16/19 at 10:16 Furosemide (Lasix) 40 mg [id number] IVP ; Start 01/16/19 at 14:00 Active Scripts Active Reported Omeprazole 40 Mg Capsule. 1 Cap PO DAILY Vitals/I & O Vital Sign - Last 24 Hours 01/15/19 01/15/19 01/15/19 01/15/19 11:11 11:22 15:00 19:00 Temp 97.9 97.4 97.2 97.9 97.4 97.2 Pulse 87 88 89 Resp 28 18 24 B/P (MAP) 108/61 (77) 104/63 (77) 107/70 (82) Pulse Ox 94 95 95 95 O2 Delivery Room Air Room Air Room Air Room Air 01/15/19 01/15/19 01/15/19 01/16/19 20:27 20:30 22:57 03:00 Temp 97.8 97.9 97.8 97.9 Pulse 94 82 Resp 23 20 B/P (MAP) 104/74 (84) 98/73 (81) Pulse Ox 96 97 95 O2 Delivery Room Air Room Air Room Air Room Air O2 Flow Rate 15.0 01/16/19 01/16/19 01/16/19 07:06 07:47 08:00 Temp 96.2 96.2 Pulse 86 Resp 24 B/P (MAP) 122/71 (88) Pulse Ox 96 96 O2 Delivery Room Air Room Air Room Air Intake and Output 01/15/19 01/15/19 01/16/19 14:59 22:59 06:59 Intake Total 1600 ml 1000 ml Output Total 350 ml 550 ml Balance 1250 ml 450 ml MARIA TERESA HOSKINS MD Jan 16, 2019 10:07
--- NOTE | 2019-01-16 10:08 | PDOC ---
Infectious Disease Note Subjective Subjective 1:1 observation for confusion and restlessness No fevers last 24 hours Vital Sign Vital Signs Vital Signs Date Time Temp Pulse Resp B/P (MAP) Pulse Ox O2 Delivery O2 Flow Rate FiO2 01/16/19 08:00 Room Air 01/16/19 07:47 96 01/16/19 07:06 96.2 86 24 122/71 (88) 96.2 01/15/19 22:57 15.0 Physical Exam PHYSICAL EXAM GENERAL: Propped up in bed, awake, weak appearing, markedly jaundiced, mumbling HEENT: Pupils equally round and reactive. Icterus. Oral cavity dry NECK: Supple. LUNGS: Decreased in bases HEART: S1 and S2 regular ABDOMEN: Distended, soft, no grimace or guarding to palpation. Bowel sounds present. GENITOURINARY: Indwelling Galdamez in place. EXTREMITIES: Generalized edema. No cyanosis SKIN: Warm to touch. Multiple ecchymoses lower extremities. + rash NEUROLOGIC: Awake, confused and follows simple commands RIJ -clean Labs Lab Laboratory Tests Test 01/16/19 06:30 White Blood Count 18.8 x10^3/uL (4.0-11.0) Red Blood Count 2.11 x10^6/uL (4.30-5.70) Hemoglobin 7.7 g/dL (13.0-17.5) Hematocrit 23.0 % (39.0-53.0) Mean Corpuscular Volume 109 fL (79-100) Mean Corpuscular Hemoglobin 37 pg (25-35) Mean Corpuscular Hemoglobin Concent 34 g/dL (31-37) Red Cell Distribution Width 26.3 % (11.5-14.5) Platelet Count 94 x10^3/uL (140-400) Neutrophils (%) (Auto) 89 % (31-73) Lymphocytes (%) (Auto) 4 % (24-48) Monocytes (%) (Auto) 5 % (0-9) Eosinophils (%) (Auto) 1 % (0-3) Basophils (%) (Auto) 1 % (0-3) Neutrophils # (Auto) 16.6 x10^3/uL (1.8-7.7) Lymphocytes # (Auto) 0.8 x10^3/uL (1.0-4.8) Monocytes # (Auto) 0.9 x10^3/uL (0.0-1.1) Eosinophils # (Auto) 0.3 x10^3/uL (0.0-0.7) Basophils # (Auto) 0.2 x10^3/uL (0.0-0.2) Segmented Neutrophils % 85 % (35-66) Band Neutrophils % 4 % (0-9) Lymphocytes % 6 % (24-48) Monocytes % 2 % (0-10) Eosinophils % 1 % (0-5) Myelocytes % 2 % (0-0) Platelet Estimate Decreased (ADEQUATE) Large Platelets Few Anisocytosis Marked Macrocytosis Present Sodium Level 132 mmol/L (136-145) Potassium Level 4.0 mmol/L (3.5-5.1) Chloride Level 102 mmol/L (98-107) Carbon Dioxide Level 17 mmol/L (21-32) Anion Gap 13 (6-14) Blood Urea Nitrogen 60 mg/dL (8-26) Creatinine 2.8 mg/dL (0.7-1.3) Estimated GFR (Cockcroft-Gault) 24.7 Glucose Level 124 mg/dL (70-99) Calcium Level 7.0 mg/dL (8.5-10.1) Phosphorus Level 7.3 mg/dL (2.6-4.7) Magnesium Level 2.2 mg/dL (1.8-2.4) Micro 01/12/19 Blood Culture NO GROWTH AFTER 2 DAYS Objective Assessment Fever pattern improving, BC neg so far Leukocytosis ? reactive, could be from etoh hepatitis Thrombocytopenia - trending ? liver disease possible med Transaminitis - now on TPN ? 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 The chart was reviewed. The case was discussed. Agree with the plan of care. NABIL MATHIS [employer] O[employer] Jan 16, 2019 10:08 IVON WOODARD MD Jan 16, 2019 10:12
--- NOTE | 2019-01-16 10:10 | PDOC ---
PROGRESS NOTES Chief Complaint Chief Complaint impression JAundice, thrombocytopenia Liver mass? Sepsis w/ hypotension, lactic acidosis and fever - t.o ICU severely encephalopathic - sitter hypernatremia, hypokalemia - Hemoglobin 8.3 post transfusion 01/09 Coagulopathy s/p FFP moved ICU Ammonia levels 208 ON ADMIT on kub Diffuse dilation of small bowel loops may be seen with ileus or distal obstruction. CT may provide additional details. History of Present Illness History of Present Illness Transferred out of ICU Blood cultures no growth, but confused with elevated ammonia on admission Creatinine elevated stable DNR Overall prognosis poor WBC 19.3, he is jaundiced thrombocytopenia platelets 76 with old bruising but no active bleeding Hemoglobin 8 History of heavy alcohol in the past Was very confused and would've been almost a CODE BLUE on arrival apparently as per LOS meeting this is my first day with him after a very complicated course for about 2 weeks now Sitter at bedside, needed coaxing to orient him Plan:the right consults are on board, i,e GI for the liver mass? Renal for the AK I. Some mention of colitis on CT Abdomen is distended tender. We'll review if needs reimaging DNR Self-pay and is not a citizen Continue antibiotics per ID Overall prognosis guarded not ready to DC COnt sitter Other supprotive emds WOF bleeding 29 min exam and chart review time> 50% of time spent with exam, chart review, pt care coordination Vitals Vitals Vital Signs Date Time Temp Pulse Resp B/P (MAP) Pulse Ox O2 Delivery O2 Flow Rate FiO2 01/16/19 08:00 Room Air 01/16/19 07:47 96 01/16/19 07:06 96.2 86 24 122/71 (88) 96.2 01/15/19 22:57 15.0 Physical Exam Physical Exam GENERAL: Propped up in bed, awake, weak appearing, markedly jaundiced, mumbling HEENT: Pupils equally round and reactive. Icterus. Oral cavity dry NECK: Supple. LUNGS: Decreased in bases HEART: S1 and S2 regular ABDOMEN: Distended, soft, no grimace or guarding to palpation. Bowel sounds present. GENITOURINARY: Indwelling Galdamez in place. EXTREMITIES: Generalized edema. No cyanosis SKIN: Warm to touch. Multiple ecchymoses lower extremities. + rash NEUROLOGIC: Awake, confused and follows simple commands RIJ -clean General: Alert, No acute distress Heart: Normal S1, Normal S2 Lungs: Other (decrease bs) Abdomen: Soft, No tenderness, Other (ND) Extremities: No cyanosis, Other (noted eccyhmosis, 2 PLUS pedal edema ) Skin: Other (Bruising and jaundice) Labs LABS REASON: distention, fluid? ileus? PROCEDURE: ABDOMEN SUPINE & UPRIGHT EXAM: Supine AP view of the abdomen DATE: 01/15/2019 12:54 PM INDICATION: Abdominal distention, pain COMPARISON: 01/10/2019 FINDINGS: Several loops of dilated small bowel are seen measuring up to 4 cm, new compared to 01/10/2019. Findings may be seen with ileus or distal small bowel obstruction. Moderate colonic stool content. No abnormal soft tissue mass effect. No suspicious calcifications are seen. Evaluation for free intraperitoneal gas is limited on this supine exam. IMPRESSION: 1. Diffuse dilation of small bowel loops may be seen with ileus or distal obstruction. CT may provide additional details. Electronically signed by: Lorenzo Richard MD (01/15/2019 5:19 PM) [facility] DICTATED and SIGNED BY: LORENZO RICHARD MD DATE: 01/15/19 1719 Laboratory Tests Test 01/16/19 06:30 White Blood Count 18.8 x10^3/uL (4.0-11.0) Red Blood Count 2.11 x10^6/uL (4.30-5.70) Hemoglobin 7.7 g/dL (13.0-17.5) Hematocrit 23.0 % (39.0-53.0) Mean Corpuscular Volume 109 fL (79-100) Mean Corpuscular Hemoglobin 37 pg (25-35) Mean Corpuscular Hemoglobin Concent 34 g/dL (31-37) Red Cell Distribution Width 26.3 % (11.5-14.5) Platelet Count 94 x10^3/uL (140-400) Neutrophils (%) (Auto) 89 % (31-73) Lymphocytes (%) (Auto) 4 % (24-48) Monocytes (%) (Auto) 5 % (0-9) Eosinophils (%) (Auto) 1 % (0-3) Basophils (%) (Auto) 1 % (0-3) Neutrophils # (Auto) 16.6 x10^3/uL (1.8-7.7) Lymphocytes # (Auto) 0.8 x10^3/uL (1.0-4.8) Monocytes # (Auto) 0.9 x10^3/uL (0.0-1.1) Eosinophils # (Auto) 0.3 x10^3/uL (0.0-0.7) Basophils # (Auto) 0.2 x10^3/uL (0.0-0.2) Segmented Neutrophils % 85 % (35-66) Band Neutrophils % 4 % (0-9) Lymphocytes % 6 % (24-48) Monocytes % 2 % (0-10) Eosinophils % 1 % (0-5) Myelocytes % 2 % (0-0) Platelet Estimate Decreased (ADEQUATE) Large Platelets Few Anisocytosis Marked Macrocytosis Present Sodium Level 132 mmol/L (136-145) Potassium Level 4.0 mmol/L (3.5-5.1) Chloride Level 102 mmol/L (98-107) Carbon Dioxide Level 17 mmol/L (21-32) Anion Gap 13 (6-14) Blood Urea Nitrogen 60 mg/dL (8-26) Creatinine 2.8 mg/dL (0.7-1.3) Estimated GFR (Cockcroft-Gault) 24.7 Glucose Level 124 mg/dL (70-99) Calcium Level 7.0 mg/dL (8.5-10.1) Phosphorus Level 7.3 mg/dL (2.6-4.7) Magnesium Level 2.2 mg/dL (1.8-2.4) Assessment and Plan Assessmemt and Plan Problems Medical Problems: (1) Alcoholic liver disease Status: Acute (2) Cholelithiasis Status: Acute (3) Colitis Status: Acute (4) Jaundice Status: Acute (5) Pancreatitis Status: Acute (6) Thrombocytopenia Status: Acute Comment Review of Relevant I have reviewed the following items pierre (where applicable) has been applied. Labs Laboratory Tests Test 01/14/19 22:25 01/15/19 05:20 01/16/19 06:30 Vancomycin Level Trough 22.4 mcg/mL (10.0-20.0) Vancomycin Last Dose Date 01/14/19 Vancomycin Last Dose Time 0900 White Blood Count 19.3 x10^3/uL (4.0-11.0) 18.8 x10^3/uL (4.0-11.0) Red Blood Count 2.27 x10^6/uL (4.30-5.70) 2.11 x10^6/uL (4.30-5.70) Hemoglobin 8.3 g/dL (13.0-17.5) 7.7 g/dL (13.0-17.5) Hematocrit 24.4 % (39.0-53.0) 23.0 % (39.0-53.0) Mean Corpuscular Volume 108 fL (79-100) 109 fL (79-100) Mean Corpuscular Hemoglobin 37 pg (25-35) 37 pg (25-35) Mean Corpuscular Hemoglobin Concent 34 g/dL (31-37) 34 g/dL (31-37) Red Cell Distribution Width 25.5 % (11.5-14.5) 26.3 % (11.5-14.5) Platelet Count 76 x10^3/uL (140-400) 94 x10^3/uL (140-400) Neutrophils (%) (Auto) 87 % (31-73) 89 % (31-73) Lymphocytes (%) (Auto) 5 % (24-48) 4 % (24-48) Monocytes (%) (Auto) 6 % (0-9) 5 % (0-9) Eosinophils (%) (Auto) 2 % (0-3) 1 % (0-3) Basophils (%) (Auto) 0 % (0-3) 1 % (0-3) Neutrophils # (Auto) 16.7 x10^3/uL (1.8-7.7) 16.6 x10^3/uL (1.8-7.7) Lymphocytes # (Auto) 1.0 x10^3/uL (1.0-4.8) 0.8 x10^3/uL (1.0-4.8) Monocytes # (Auto) 1.2 x10^3/uL (0.0-1.1) 0.9 x10^3/uL (0.0-1.1) Eosinophils # (Auto) 0.3 x10^3/uL (0.0-0.7) 0.3 x10^3/uL (0.0-0.7) Basophils # (Auto) 0.1 x10^3/uL (0.0-0.2) 0.2 x10^3/uL (0.0-0.2) Sodium Level 132 mmol/L (136-145) 132 mmol/L (136-145) Potassium Level 3.9 mmol/L (3.5-5.1) 4.0 mmol/L (3.5-5.1) Chloride Level 102 mmol/L (98-107) 102 mmol/L (98-107) Carbon Dioxide Level 18 mmol/L (21-32) 17 mmol/L (21-32) Anion Gap 12 (6-14) 13 (6-14) Blood Urea Nitrogen 47 mg/dL (8-26) 60 mg/dL (8-26) Creatinine 1.9 mg/dL (0.7-1.3) 2.8 mg/dL (0.7-1.3) Estimated GFR (Cockcroft-Gault) 38.7 24.7 Glucose Level 111 mg/dL (70-99) 124 mg/dL (70-99) Calcium Level 7.0 mg/dL (8.5-10.1) 7.0 mg/dL (8.5-10.1) Phosphorus Level 5.2 mg/dL (2.6-4.7) 7.3 mg/dL (2.6-4.7) Magnesium Level 2.2 mg/dL (1.8-2.4) 2.2 mg/dL (1.8-2.4) Segmented Neutrophils % 85 % (35-66) Band Neutrophils % 4 % (0-9) Lymphocytes % 6 % (24-48) Monocytes % 2 % (0-10) Eosinophils % 1 % (0-5) Myelocytes % 2 % (0-0) Platelet Estimate Decreased (ADEQUATE) Large Platelets Few Anisocytosis Marked Macrocytosis Present Laboratory Tests Test 01/16/19 06:30 White Blood Count 18.8 x10^3/uL (4.0-11.0) Red Blood Count 2.11 x10^6/uL (4.30-5.70) Hemoglobin 7.7 g/dL (13.0-17.5) Hematocrit 23.0 % (39.0-53.0) Mean Corpuscular Volume 109 fL (79-100) Mean Corpuscular Hemoglobin 37 pg (25-35) Mean Corpuscular Hemoglobin Concent 34 g/dL (31-37) Red Cell Distribution Width 26.3 % (11.5-14.5) Platelet Count 94 x10^3/uL (140-400) Neutrophils (%) (Auto) 89 % (31-73) Lymphocytes (%) (Auto) 4 % (24-48) Monocytes (%) (Auto) 5 % (0-9) Eosinophils (%) (Auto) 1 % (0-3) Basophils (%) (Auto) 1 % (0-3) Neutrophils # (Auto) 16.6 x10^3/uL (1.8-7.7) Lymphocytes # (Auto) 0.8 x10^3/uL (1.0-4.8) Monocytes # (Auto) 0.9 x10^3/uL (0.0-1.1) Eosinophils # (Auto) 0.3 x10^3/uL (0.0-0.7) Basophils # (Auto) 0.2 x10^3/uL (0.0-0.2) Segmented Neutrophils % 85 % (35-66) Band Neutrophils % 4 % (0-9) Lymphocytes % 6 % (24-48) Monocytes % 2 % (0-10) Eosinophils % 1 % (0-5) Myelocytes % 2 % (0-0) Platelet Estimate Decreased (ADEQUATE) Large Platelets Few Anisocytosis Marked Macrocytosis Present Sodium Level 132 mmol/L (136-145) Potassium Level 4.0 mmol/L (3.5-5.1) Chloride Level 102 mmol/L (98-107) Carbon Dioxide Level 17 mmol/L (21-32) Anion Gap 13 (6-14) Blood Urea Nitrogen 60 mg/dL (8-26) Creatinine 2.8 mg/dL (0.7-1.3) Estimated GFR (Cockcroft-Gault) 24.7 Glucose Level 124 mg/dL (70-99) Calcium Level 7.0 mg/dL (8.5-10.1) Phosphorus Level 7.3 mg/dL (2.6-4.7) Magnesium Level 2.2 mg/dL (1.8-2.4) Microbiology 01/12/19 Blood Culture - Preliminary, Resulted NO GROWTH AFTER 3 DAYS 01/04/19 Urine Culture - Final, Complete 01/04/19 Urine Culture Result 1 (DONALD) - Final, Complete Medications Current Medications Iohexol (Omnipaque 240 Mg/ml) 30 ml 1X ONCE PO Last administered on 01/04/19at 15:15; Start 01/04/19 at 15:15; Stop 01/04/19 at 15:17; Status DC Iohexol (Omnipaque 300 Mg/ml) 75 ml 1X ONCE IV Last administered on 01/04/19at 16:20; Start 01/04/19 at 15:15; Stop 01/04/19 at 15:17; Status DC Info (CONTRAST GIVEN -- Rx MONITORING) 1 each PRN DAILY PRN MC SEE COMMENTS; Start 01/04/19 at 15:30; Stop 01/06/19 at 15:29; Status DC Multivitamins 10 ml/Thiamine HCl 100 mg/Folic Acid 1 mg/Sodium Chloride 1,011.2 ml @ 100 mls/ hr DAILY IV Last administered on 01/08/19at 08:12; Start 01/04/19 at 18:00; Stop 01/08/19 at 19:07; Status DC Chlordiazepoxide (Librium) 50 mg PRN Q1HR PRN PO For CIWA 8-14 Last administered on 01/04/19at 18:17; Start 01/04/19 at 17:45 Chlordiazepoxide (Librium) 100 mg PRN Q1HR PRN PO For CIWA 15 or greater Last administered on 01/05/19at 06:27; Start 01/04/19 at 17:45 Lorazepam (Ativan) 4 mg PRN Q1HR PRN PO For CIWA 8-14 Last administered on 01/04/19at 18:17; Start 01/04/19 at 17:45; Stop 01/10/19 at 07:34; Status DC Lorazepam (Ativan) 8 mg PRN Q1HR PRN PO For CIWA 15 or greater; Start 01/04/19 at 17:45; Stop 01/10/19 at 07:34; Status DC Haloperidol Lactate (Haldol Inj) 5 mg PRN Q4HRS PRN IVP Hallucinatns,Confusn,Delirium Last administered on 01/13/19at 11:22; Start 01/04/19 at 17:45 Diphenhydramine HCl (Benadryl) 25 mg PRN Q15MIN PRN IVP EPS symptoms 2'Haldol admin; Start 01/04/19 at 17:45 Clonidine HCl (Catapres) 0.1 mg PRN Q1HR PRN PO SBP > 180 or DBP > 100, MRX3 Last administered on 01/08/19at 07:18; Start 01/04/19 at 17:45; Stop 01/08/19 at 08:58; Status DC Lorazepam (Ativan Inj) 2 mg PRN Q1HR PRN IV For CIWA 8-14 Last administered on 01/16/19at 07:54; Start 01/04/19 at 19:15 Lorazepam (Ativan Inj) 4 mg PRN Q1HR PRN IV For CIWA 15 or greater Last administered on 01/05/19at 06:28; Start 01/04/19 at 19:15 Lorazepam (Ativan Inj) 2 mg PRN Q15MIN PRN IV SEE COMMENTS; Start 01/04/19 at 19:15; Status UNV Lorazepam (Ativan Inj) 4 mg PRN Q15MIN PRN IV SEE COMMENTS; Start 01/04/19 at 19:15; Status UNV Ondansetron HCl (Zofran) 4 mg PRN Q6HRS PRN IV NAUSEA/VOMITING Last administered on 01/04/19at 19:34; Start 01/04/19 at 19:30 Pantoprazole Sodium (PROTONIX VIAL for IV PUSH) 40 mg DAILYAC IVP Last administered on 01/06/19at 10:36; Start 01/06/19 at 10:00; Stop 01/06/19 at 12:17; Status DC Phytonadione (Vitamin K Ampule) 10 mg 1X ONCE SQ Last administered on 01/06/19at 10:36; Start 01/06/19 at 10:15; Stop 01/06/19 at 10:16; Status DC Piperacillin Sod/ Tazobactam Sod (Zosyn Per Pharmacy) 1 each PRN DAILY PRN MC SEE COMMENTS; Start 01/06/19 at 10:30 Piperacillin Sod/ Tazobactam Sod 3.375 gm/Sodium Chloride 50 ml @ 100 mls/hr Q6HRS IV Last administered on 01/16/19at 06:43; Start 01/06/19 at 11:00 Lactulose (Lactulose) 30 gm Q6HRS NG Last administered on 01/09/19at 05:53; Start 01/06/19 at 12:00; Stop 01/09/19 at 10:51; Status DC Metronidazole 100 ml @ 100 mls/hr Q8HRS IV Last administered on 01/09/19at 05:53; Start 01/06/19 at 14:00; Stop 01/09/19 at 07:19; Status DC Pantoprazole Sodium 80 mg/ Sodium Chloride 100 ml @ 10 mls/hr Q10H IV Last administered on 01/10/19at 02:31; Start 01/06/19 at 12:30; Stop 01/10/19 at 12:11; Status DC Octreotide Acetate 500 mcg/ Sodium Chloride 101 ml @ 0 mls/hr CONT PRN IV SEE I/O RECORD Last administered on 01/08/19at 06:08; Start 01/06/19 at 12:15; Stop 01/08/19 at 10:48; Status DC Norepinephrine Bitartrate 250 ml @ 14.235 mls/ hr CONT PRN IV SEE I/O RECORD; Start 01/06/19 at 20:15; Stop 01/13/19 at 13:28; Status DC Albumin Human 100 ml @ 100 mls/hr 1X ONCE IV Last administered on 01/06/19at 21:30; Start 01/06/19 at 20:15; Stop 01/06/19 at 21:14; Status DC Phytonadione (Vitamin K Ampule) 10 mg 1X ONCE SQ Last administered on 01/07/19at 13:04; Start 01/07/19 at 11:45; Stop 01/07/19 at 11:46; Status DC Albuterol/ Ipratropium (Duoneb) 3 ml RTQID NEB Last administered on 01/16/19at 07:46; Start 01/07/19 at 16:00 Sodium Chloride 1,000 ml @ 75 mls/hr [id number] IV Last administered on 01/08/19at 23:47; Start 01/08/19 at 06:00; Stop 01/09/19 at 10:19; Status DC Labetalol HCl (Normodyne Iv Push) 10 mg PRN Q4HRS PRN IVP HYPERTENSION; Start 01/08/19 at 09:00 Potassium Bicarbonate (Potassium Effervescent Tablet) 40 meq 1X ONCE PEG Last administered on 01/08/19at 12:24; Start 01/08/19 at 11:30; Stop 01/08/19 at 11:33; Status DC Potassium Bicarbonate (Potassium Effervescent Tablet) 40 meq 1X ONCE PEG Last administered on 01/08/19at 16:06; Start 01/08/19 at 16:00; Stop 01/08/19 at 16:01; Status DC Potassium Bicarbonate (Potassium Effervescent Tablet) 80 meq 1X ONCE PEG Last administered on 01/09/19at 06:58; Start 01/09/19 at 06:15; Stop 01/09/19 at 06:21; Status DC Artificial Tears (Artificial Tears) 1 drop PRN Q15MIN PRN OU DRY EYE Last administered on 01/09/19at 10:11; Start 01/09/19 at 10:00 Dextrose/Sodium Chloride 1,000 ml @ 75 mls/hr [id number] IV Last administered on 01/09/19at 11:03; Start 01/09/19 at 10:30; Stop 01/09/19 at 12:20; Status DC Potassium Chloride/Water 50 ml @ 50 mls/hr Q1H IV ; Start 01/09/19 at 10:30; Stop 01/09/19 at 12:29; Status UNV Potassium Chloride/Water 100 ml @ 100 mls/hr Q1H IV ; Start 01/09/19 at 11:00; Stop 01/09/19 at 11:00; Status DC Lactulose (Lactulose) 30 gm BID NG Last administered on 01/09/19at 20:52; Start 01/09/19 at 21:00; Stop 01/10/19 at 13:57; Status DC Dextrose 1,000 ml @ 100 mls/hr Q10H IV Last administered on 01/13/19at 11:22; Start 01/09/19 at 12:30; Stop 01/14/19 at 13:58; Status DC Info (Tpn Per Pharmacy) 1 each PRN DAILY PRN MC SEE COMMENTS Last administered on 01/12/19at 13:31; Start 01/09/19 at 15:15; Stop 01/13/19 at 13:27; Status DC Potassium Chloride 50 meq/ Potassium Phosphate 13.6 mmol/Magnesium Sulfate 10 meq/ Calcium Gluconate 10 meq/ Multivitamins 10 ml/Chromium/ Copper/Manganese/ Seleni/Zn 1 ml/ Total Parenteral Nutrition/Amino Acids/Dextrose/ Fat Emulsion Intravenous 1,512 ml @ 63 mls/hr TPN CONT IV Last administered on 01/09/19at 21:41; Start 01/09/19 at 22:00; Stop 01/10/19 at 21:59; Status DC Potassium Chloride/Water 50 ml @ 50 mls/hr Q1H IV Last administered on 01/09/19at 20:51; Start 01/09/19 at 18:00; Stop 01/09/19 at 21:59; Status DC Potassium Phosphate 13.6 mmol/Dextrose 254.5333 ml @ 62.646 m... 1X ONCE IV Last administered on 01/09/19at 21:49; Start 01/09/19 at 22:00; Stop 01/10/19 at 08:03; Status DC Potassium Chloride/Water 50 ml @ 50 mls/hr Q1H IV Last administered on 01/10/19at 11:41; Start 01/10/19 at 08:00; Stop 01/10/19 at 11:59; Status DC Sodium Phosphate 40 mmol/Dextrose 263.3333 ml @ 62.5 mls/hr 1X ONCE IV ; Start 01/10/19 at 08:00; Stop 01/10/19 at 08:49; Status DC Potassium Phosphate 12 mmol/ Sodium Chloride 254 ml @ 125 mls/hr Q2H IV Last administered on 01/10/19at 15:24; Start 01/10/19 at 08:00; Stop 01/10/19 at 11:59; Status DC Potassium Chloride 40 meq/ Potassium Acetate 40 meq/Potassium Phosphate 15 mmol/ Magnesium Sulfate 10 meq/Calcium Gluconate 10 meq/ Multivitamins 10 ml/Chromium/ Copper/Manganese/ Seleni/Zn 1 ml/ Total Parenteral Nutrition/Amino Acids/Dextrose/ Fat Emulsion Intravenous 1,512 ml @ 63 mls/hr TPN CONT IV Last administered on 01/10/19at 22:08; Start 01/10/19 at 22:00; Stop 01/11/19 at 21:59; Status DC Pantoprazole Sodium (PROTONIX VIAL for IV PUSH) 40 mg BIDAC IVP Last ad ministered on 01/14/19 08:54; Start 01/10/19 at 16:30; Stop 01/14/19 at 11:38; Status DC Sodium Chloride 250 ml @ 250 mls/hr 1X ONCE IV Last administered on 01/10/19 19:30; Start 01/10/19 at 19:30; Stop 01/10/19 at 20:29; Status DC Lorazepam (Ativan Inj) 1 mg PRN Q6HRS PRN IV ANXIETY / AGITATION Last administered on 01/15/19 00:38; Start 01/10/19 at 23:15 Potassium Chloride 40 meq/ Potassium Acetate 40 meq/Potassium Phosphate 15 mmol/ Magnesium Sulfate 10 meq/Calcium Gluconate 10 meq/ Multivitamins 10 ml/Chromium/ Copper/Manganese/ Seleni/Zn 1 ml/ Total Parenteral Nutrition/Amino Acids/Dextrose/ Fat Emulsion Intravenous 1,512 ml @ 63 mls/hr TPN CONT IV Last administered on 01/11/19 21:34; Start 01/11/19 at 22:00; Stop 01/12/19 at 21:59; Status DC Morphine Sulfate (Morphine Sulfate) 2 mg 1X ONCE IV Last administered on 01/12/19 10:40; Start 01/12/19 at 09:30; Stop 01/12/19 at 09:31; Status DC Potassium Phosphate 13.6 mmol/Dextrose 104.5333 ml @ 52.267 m... Q2H IV Last administered on 01/12/19 13:22; Start 01/12/19 at 11:30; Stop 01/12/19 at 15:29; Status DC Vancomycin HCl (Vanco Per Pharmacy) 1 each PRN DAILY PRN MC SEE COMMENTS Last administered on 01/15/19 03:09; Start 01/12/19 at 11:15; Stop 01/15/19 at 08:54; Status DC Vancomycin HCl 2 gm/Sodium Chloride 500 ml @ 250 mls/hr ONCE ONCE IV Last administered on 01/12/19 13:22; Start 01/12/19 at 12:00; Stop 01/12/19 at 13:59; Status DC Potassium Chloride 40 meq/ Potassium Acetate 40 meq/Potassium Phosphate 15 mmol/ Magnesium Sulfate 10 meq/Calcium Gluconate 10 meq/ Multivitamins 10 ml/Chromium/ Copper/Manganese/ Seleni/Zn 1 ml/ Total Parenteral Nutrition/Amino Acids/Dextrose/ Fat Emulsion Intravenous 1,512 ml @ 63 mls/hr TPN CONT IV Last administered on 01/12/19at 21:48; Start 01/12/19 at 22:00; Stop 01/13/19 at 21:59; Status DC Vancomycin HCl 2 gm/Sodium Chloride 500 ml @ 250 mls/hr 1X ONCE IV Last admi nistered on 01/13/19at 08:27; Start 01/13/19 at 08:00; Stop 01/13/19 at 09:59; Status DC Vancomycin HCl 1.25 gm/Sodium Chloride 250 ml @ 167 mls/hr Q12H IV Last administered on 01/14/19at 08:54; Start 01/13/19 at 21:00; Stop 01/14/19 at 23:22; Status DC Vancomycin HCl (Vancomycin Trough Level) 1 each 1X ONCE MC ; Start 01/14/19 at 20:30; Stop 01/15/19 at 10:33; Status DC Lactobacillus Rhamnosus (Culturelle) 1 cap BID PO Last administered on 01/16/19at 07:54; Start 01/14/19 at 21:00 Pantoprazole Sodium (Protonix) 40 mg DAILYAC PO Last administered on 01/16/19at 07:54; Start 01/15/19 at 07:30 Dextrose/Sodium Chloride 1,000 ml @ 150 mls/hr Q6H40M IV Last administered on 01/16/19at 04:48; Start 01/14/19 at 14:00 Vancomycin HCl 1 gm/Sodium Chloride 250 ml @ 250 mls/hr Q12H IV Last administered on 01/15/19at 06:18; Start 01/15/19 at 06:00; Stop 01/15/19 at 08:54; Status DC Vancomycin HCl (Vancomycin Trough Level) 1 each 1X ONCE MC ; Start 01/16/19 at 17:30; Stop 01/16/19 at 17:30; Status DC Furosemide (Lasix) 40 mg 1X ONCE IVP ; Start 01/16/19 at 10:15; Stop 01/16/19 at 10:16 Furosemide (Lasix) 40 mg [id number] IVP ; Start 01/16/19 at 14:00 Active Scripts Active Reported Omeprazole 40 Mg Capsule.dr 1 Cap PO DAILY Vitals/I & O Vital Sign - Last 24 Hours 01/15/19 01/15/19 01/15/19 01/15/19 11:11 11:22 15:00 19:00 Temp 97.9 97.4 97.2 97.9 97.4 97.2 Pulse 87 88 89 Resp 28 18 24 B/P (MAP) 108/61 (77) 104/63 (77) 107/70 (82) Pulse Ox 94 95 95 95 O2 Delivery Room Air Room Air Room Air Room Air 01/15/19 01/15/19 01/15/19 01/16/19 20:27 20:30 22:57 03:00 Temp 97.8 97.9 97.8 97.9 Pulse 94 82 Resp 23 20 B/P (MAP) 104/74 (84) 98/73 (81) Pulse Ox 96 97 95 O2 Delivery Room Air Room Air Room Air Room Air O2 Flow Rate 15.0 01/16/19 01/16/19 01/16/19 07:06 07:47 08:00 Temp 96.2 96.2 Pulse 86 Resp 24 B/P (MAP) 122/71 (88) Pulse Ox 96 96 O2 Delivery Room Air Room Air Room Air Intake and Output 01/15/19 01/15/19 01/16/19 14:59 22:59 06:59 Intake Total 1600 ml 1000 ml Output Total 350 ml 550 ml Balance 1250 ml 450 ml DANG OWUSU MD Jan 16, 2019 10:10
[2019-01-16] MEDS ORDERED: FUROSEMIDE 40 MG/4 ML VIAL. IVP ONE (10:15)
[2019-01-16 10:44] VITALS: BP 108/67
--- NOTE | 2019-01-16 11:01 | PDOC ---
Subjective: Subjective: Denies pain. Attempts to tell me something about "medicine." Objective: Objective: Reviewed w/ nurse - has not wanted to eat, stooled yesterday. Vital Signs: Vital Signs Date Time Temp Pulse Resp B/P (MAP) Pulse Ox O2 Delivery O2 Flow Rate FiO2 01/16/19 10:44 95.8 84 20 108/67 (81) 93 Room Air 95.8 01/15/19 22:57 15.0 Labs: Laboratory Tests Test 01/16/19 06:30 White Blood Count 18.8 x10^3/uL Red Blood Count 2.11 x10^6/uL Hemoglobin 7.7 g/dL Hematocrit 23.0 % Mean Corpuscular Volume 109 fL Mean Corpuscular Hemoglobin 37 pg Mean Corpuscular Hemoglobin Concent 34 g/dL Red Cell Distribution Width 26.3 % Platelet Count 94 x10^3/uL Neutrophils (%) (Auto) 89 % Lymphocytes (%) (Auto) 4 % Monocytes (%) (Auto) 5 % Eosinophils (%) (Auto) 1 % Basophils (%) (Auto) 1 % Neutrophils # (Auto) 16.6 x10^3/uL Lymphocytes # (Auto) 0.8 x10^3/uL Monocytes # (Auto) 0.9 x10^3/uL Eosinophils # (Auto) 0.3 x10^3/uL Basophils # (Auto) 0.2 x10^3/uL Segmented Neutrophils % 85 % Band Neutrophils % 4 % Lymphocytes % 6 % Monocytes % 2 % Eosinophils % 1 % Myelocytes % 2 % Platelet Estimate Decreased Large Platelets Few Anisocytosis Marked Macrocytosis Present Sodium Level 132 mmol/L Potassium Level 4.0 mmol/L Chloride Level 102 mmol/L Carbon Dioxide Level 17 mmol/L Anion Gap 13 Blood Urea Nitrogen 60 mg/dL Creatinine 2.8 mg/dL Estimated GFR (Cockcroft-Gault) 24.7 Glucose Level 124 mg/dL Calcium Level 7.0 mg/dL Phosphorus Level 7.3 mg/dL Magnesium Level 2.2 mg/dL Imaging: [facility] 01/15 IMPRESSION: 1. Diffuse dilation of small bowel loops may be seen with ileus or distal obstruction. CT may provide additional details. PE: GEN: looks worse today LUNGS: tachypneic ABD: quiet, stable distention, non-tender EXTREMITY: BLE pitting edema SKIN: jaundice NEURO/PSYCH: less verbal A/P: Alcoholic hepatitis Encephalopathy Anemia, thrombocytopenia, coagulopathy DEE DEE - worse -- Worse today. Will review [facility] w/ Dr. Francis - ?CT (couldn't do contrast w/ renal issues) Not a transplant candidate. EMILEE TRAMMELL Jan 16, 2019 11:01
[2019-01-16] MEDS: FUROSEMIDE 40 MG/4 ML VIAL. IVP SCH (13:12)
[2019-01-16 15:00] VITALS: BP 100/57
[2019-01-16 19:00] VITALS: BP 97/67
[2019-01-16 23:00] VITALS: BP 114/74
[2019-01-17] MEDS: PIPERACILLIN/TAZOBACTAM 3.375 GM in IV NORMAL SALINE 50ML 50 ML IV SCH ×5 (00:05→23:30)
[2019-01-17] MEDS: IV DEXTROSE 5% - 0.9 % NACL 1,000 ML IV SCH ×5 (00:05→22:16)
[2019-01-17 03:00] VITALS: BP 90/59
[2019-01-17 06:44] LABS: CREATININE 3.7 mg/dL (0.7-1.3); GFR 17.9; MAGNESIUM 2.3 mg/dL (1.8-2.4); PHOSPHORUS 8.8 mg/dL (2.6-4.7); POTASSIUM 4.4 mmol/L (3.5-5.1)
[2019-01-17 06:48] LABS: BASO # 0.1 x10^3/uL (0.0-0.2); BASO % 1 % (0-3); EOS # 0.1 x10^3/uL (0.0-0.7); EOS % 1 % (0-3); HEMOGLOBIN 8.3 g/dL (13.0-17.5); LYMPH # 0.5 x10^3/uL (1.0-4.8); LYMPH % 2 % (24-48); MEAN CORPUSCULAR HEMOGLOBIN 36 pg (25-35); MEAN CORPUSCULAR HGB CONC 33 g/dL (31-37); MEAN CORPUSCULAR VOLUME 109 fL (79-100); MONO # 1.3 x10^3/uL (0.0-1.1); MONO % 6 % (0-9); NEUT # 20.8 x10^3/uL (1.8-7.7); NEUT % 91 % (31-73); PLATELET COUNT 84 x10^3/uL (140-400); RED BLOOD COUNT 2.29 x10^6/uL (4.30-5.70); RED CELL DISTRIBUTION WIDTH 26.3 % (11.5-14.5); WHITE BLOOD COUNT 22.8 x10^3/uL (4.0-11.0)
[2019-01-17 07:00] VITALS: BP 85/51
[2019-01-17] MEDS: FUROSEMIDE 40 MG/4 ML VIAL. IVP SCH ×2 (07:35→13:04)
[2019-01-17] MEDS: IPRATRPIUM/ALBUTEROL 0.5/2.5MG 3 ML NEBU. NEB SCH ×4 (07:44→20:16)
[2019-01-17] MEDS: PANTOPRAZOLE 40 MG TABLET.DR. PO SCH (07:50)
[2019-01-17] MEDS: LACTOBACILLUS RHAMNOSUS GG 1 CAPSULE. PO SCH ×2 (07:50→21:00)
--- NOTE | 2019-01-17 08:08 | PDOC ---
PROGRESS NOTES Chief Complaint Chief Complaint impression JAundice, thrombocytopenia Liver mass? Sepsis w/ hypotension, lactic acidosis and fever - t.o ICU severely encephalopathic - sitter hypernatremia, hypokalemia - Hemoglobin 8.3 post transfusion 01/09 Coagulopathy s/p FFP moved ICU Ammonia levels 208 ON ADMIT on kub Diffuse dilation of small bowel loops may be seen with ileus or distal obstruction. CT may provide additional details. History of Present Illness History of Present Illness confused with elevated ammonia on admission Creatinine elevated stable DNR prognosis poor WBC 19.3, he is jaundiced thrombocytopenia platelets 76 with old bruising but no active bleeding Hemoglobin 8 History of heavy alcohol in the past Plan: consults are on board, i,e overall poor prognosis, vitas HOSPICE WILL ADMIT 01/18 PER CASE MGT Renal for the [place] I. DNR Self-pay and is not a citizen Continue antibiotics per ID COnt sitter WOF bleeding 29 min exam and chart review time> 50% of time spent with exam, chart review, pt care coordination Vitals Vitals Vital Signs Date Time Temp Pulse Resp B/P (MAP) Pulse Ox O2 Delivery O2 Flow Rate FiO2 01/17/19 07:45 Room Air 01/17/19 07:44 93 01/17/19 07:00 97.9 89 22 85/51 (62) 97.9 Physical Exam Physical Exam GENERAL: Propped up in bed, awake, weak appearing, markedly jaundiced, mumbling HEENT: Pupils equally round and reactive. Icterus. Oral cavity dry NECK: Supple. LUNGS: Decreased in bases HEART: S1 and S2 regular ABDOMEN: Distended, soft, no grimace or guarding to palpation. Bowel sounds present. GENITOURINARY: Indwelling Galdamez in place. EXTREMITIES: Generalized edema. No cyanosis SKIN: Warm to touch. Multiple ecchymoses lower extremities. + rash NEUROLOGIC: Awake, confused and follows simple commands RIJ -clean General: Alert, No acute distress Heart: Normal S1, Normal S2 Lungs: Other (decrease bs) Abdomen: Soft, No tenderness, Other (ND) Extremities: No cyanosis, Other (noted eccyhmosis, 2 PLUS pedal edema ) Skin: Other (Bruising and jaundice) Labs LABS Laboratory Tests Test 01/17/19 06:15 White Blood Count 22.8 x10^3/uL (4.0-11.0) Red Blood Count 2.29 x10^6/uL (4.30-5.70) Hemoglobin 8.3 g/dL (13.0-17.5) Hematocrit 25.0 % (39.0-53.0) Mean Corpuscular Volume 109 fL (79-100) Mean Corpuscular Hemoglobin 36 pg (25-35) Mean Corpuscular Hemoglobin Concent 33 g/dL (31-37) Red Cell Distribution Width 26.3 % (11.5-14.5) Platelet Count 84 x10^3/uL (140-400) Neutrophils (%) (Auto) 91 % (31-73) Lymphocytes (%) (Auto) 2 % (24-48) Monocytes (%) (Auto) 6 % (0-9) Eosinophils (%) (Auto) 1 % (0-3) Basophils (%) (Auto) 1 % (0-3) Neutrophils # (Auto) 20.8 x10^3/uL (1.8-7.7) Lymphocytes # (Auto) 0.5 x10^3/uL (1.0-4.8) Monocytes # (Auto) 1.3 x10^3/uL (0.0-1.1) Eosinophils # (Auto) 0.1 x10^3/uL (0.0-0.7) Basophils # (Auto) 0.1 x10^3/uL (0.0-0.2) Sodium Level 133 mmol/L (136-145) Potassium Level 4.4 mmol/L (3.5-5.1) Chloride Level 102 mmol/L (98-107) Carbon Dioxide Level 14 mmol/L (21-32) Anion Gap 17 (6-14) Blood Urea Nitrogen 69 mg/dL (8-26) Creatinine 3.7 mg/dL (0.7-1.3) Estimated GFR (Cockcroft-Gault) 17.9 Glucose Level 84 mg/dL (70-99) Calcium Level 7.0 mg/dL (8.5-10.1) Phosphorus Level 8.8 mg/dL (2.6-4.7) Magnesium Level 2.3 mg/dL (1.8-2.4) Assessment and Plan Assessmemt and Plan Problems Medical Problems: (1) Alcoholic liver disease Status: Acute (2) Cholelithiasis Status: Acute (3) Colitis Status: Acute (4) Jaundice Status: Acute (5) Pancreatitis Status: Acute (6) Thrombocytopenia Status: Acute Comment Review of Relevant I have reviewed the following items pierre (where applicable) has been applied. Labs Laboratory Tests Test 01/16/19 06:30 01/17/19 06:15 White Blood Count 18.8 x10^3/uL (4.0-11.0) 22.8 x10^3/uL (4.0-11.0) Red Blood Count 2.11 x10^6/uL (4.30-5.70) 2.29 x10^6/uL (4.30-5.70) Hemoglobin 7.7 g/dL (13.0-17.5) 8.3 g/dL (13.0-17.5) Hematocrit 23.0 % (39.0-53.0) 25.0 % (39.0-53.0) Mean Corpuscular Volume 109 fL (79-100) 109 fL (79-100) Mean Corpuscular Hemoglobin 37 pg (25-35) 36 pg (25-35) Mean Corpuscular Hemoglobin Concent 34 g/dL (31-37) 33 g/dL (31-37) Red Cell Distribution Width 26.3 % (11.5-14.5) 26.3 % (11.5-14.5) Platelet Count 94 x10^3/uL (140-400) 84 x10^3/uL (140-400) Neutrophils (%) (Auto) 89 % (31-73) 91 % (31-73) Lymphocytes (%) (Auto) 4 % (24-48) 2 % (24-48) Monocytes (%) (Auto) 5 % (0-9) 6 % (0-9) Eosinophils (%) (Auto) 1 % (0-3) 1 % (0-3) Basophils (%) (Auto) 1 % (0-3) 1 % (0-3) Neutrophils # (Auto) 16.6 x10^3/uL (1.8-7.7) 20.8 x10^3/uL (1.8-7.7) Lymphocytes # (Auto) 0.8 x10^3/uL (1.0-4.8) 0.5 x10^3/uL (1.0-4.8) Monocytes # (Auto) 0.9 x10^3/uL (0.0-1.1) 1.3 x10^3/uL (0.0-1.1) Eosinophils # (Auto) 0.3 x10^3/uL (0.0-0.7) 0.1 x10^3/uL (0.0-0.7) Basophils # (Auto) 0.2 x10^3/uL (0.0-0.2) 0.1 x10^3/uL (0.0-0.2) Segmented Neutrophils % 85 % (35-66) Band Neutrophils % 4 % (0-9) Lymphocytes % 6 % (24-48) Monocytes % 2 % (0-10) Eosinophils % 1 % (0-5) Myelocytes % 2 % (0-0) Platelet Estimate Decreased (ADEQUATE) Large Platelets Few Anisocytosis Marked Macrocytosis Present Sodium Level 132 mmol/L (136-145) 133 mmol/L (136-145) Potassium Level 4.0 mmol/L (3.5-5.1) 4.4 mmol/L (3.5-5.1) Chloride Level 102 mmol/L (98-107) 102 mmol/L (98-107) Carbon Dioxide Level 17 mmol/L (21-32) 14 mmol/L (21-32) Anion Gap 13 (6-14) 17 (6-14) Blood Urea Nitrogen 60 mg/dL (8-26) 69 mg/dL (8-26) Creatinine 2.8 mg/dL (0.7-1.3) 3.7 mg/dL (0.7-1.3) Estimated GFR (Cockcroft-Gault) 24.7 17.9 Glucose Level 124 mg/dL (70-99) 84 mg/dL (70-99) Calcium Level 7.0 mg/dL (8.5-10.1) 7.0 mg/dL (8.5-10.1) Phosphorus Level 7.3 mg/dL (2.6-4.7) 8.8 mg/dL (2.6-4.7) Magnesium Level 2.2 mg/dL (1.8-2.4) 2.3 mg/dL (1.8-2.4) Laboratory Tests Test 01/17/19 06:15 White Blood Count 22.8 x10^3/uL (4.0-11.0) Red Blood Count 2.29 x10^6/uL (4.30-5.70) Hemoglobin 8.3 g/dL (13.0-17.5) Hematocrit 25.0 % (39.0-53.0) Mean Corpuscular Volume 109 fL (79-100) Mean Corpuscular Hemoglobin 36 pg (25-35) Mean Corpuscular Hemoglobin Concent 33 g/dL (31-37) Red Cell Distribution Width 26.3 % (11.5-14.5) Platelet Count 84 x10^3/uL (140-400) Neutrophils (%) (Auto) 91 % (31-73) Lymphocytes (%) (Auto) 2 % (24-48) Monocytes (%) (Auto) 6 % (0-9) Eosinophils (%) (Auto) 1 % (0-3) Basophils (%) (Auto) 1 % (0-3) Neutrophils # (Auto) 20.8 x10^3/uL (1.8-7.7) Lymphocytes # (Auto) 0.5 x10^3/uL (1.0-4.8) Monocytes # (Auto) 1.3 x10^3/uL (0.0-1.1) Eosinophils # (Auto) 0.1 x10^3/uL (0.0-0.7) Basophils # (Auto) 0.1 x10^3/uL (0.0-0.2) Sodium Level 133 mmol/L (136-145) Potassium Level 4.4 mmol/L (3.5-5.1) Chloride Level 102 mmol/L (98-107) Carbon Dioxide Level 14 mmol/L (21-32) Anion Gap 17 (6-14) Blood Urea Nitrogen 69 mg/dL (8-26) Creatinine 3.7 mg/dL (0.7-1.3) Estimated GFR (Cockcroft-Gault) 17.9 Glucose Level 84 mg/dL (70-99) Calcium Level 7.0 mg/dL (8.5-10.1) Phosphorus Level 8.8 mg/dL (2.6-4.7) Magnesium Level 2.3 mg/dL (1.8-2.4) Microbiology 01/12/19 Blood Culture - Preliminary, Resulted NO GROWTH AFTER 4 DAYS 01/04/19 Urine Culture - Final, Complete 01/04/19 Urine Culture Result 1 (DONALD) - Final, Complete Medications Current Medications Iohexol (Omnipaque 240 Mg/ml) 30 ml 1X ONCE PO Last administered on 01/04/19at 15:15; Start 01/04/19 at 15:15; Stop 01/04/19 at 15:17; Status DC Iohexol (Omnipaque 300 Mg/ml) 75 ml 1X ONCE IV Last administered on 01/04/19at 16:20; Start 01/04/19 at 15:15; Stop 01/04/19 at 15:17; Status DC Info (CONTRAST GIVEN -- Rx MONITORING) 1 each PRN DAILY PRN MC SEE COMMENTS; Start 01/04/19 at 15:30; Stop 01/06/19 at 15:29; Status DC Multivitamins 10 ml/Thiamine HCl 100 mg/Folic Acid 1 mg/Sodium Chloride 1,011.2 ml @ 100 mls/ hr DAILY IV Last administered on 01/08/19at 08:12; Start 01/04/19 at 18:00; Stop 01/08/19 at 19:07; Status DC Chlordiazepoxide (Librium) 50 mg PRN Q1HR PRN PO For CIWA 8-14 Last administered on 01/04/19at 18:17; Start 01/04/19 at 17:45 Chlordiazepoxide (Librium) 100 mg PRN Q1HR PRN PO For CIWA 15 or greater Last administered on 01/05/19at 06:27; Start 01/04/19 at 17:45 Lorazepam (Ativan) 4 mg PRN Q1HR PRN PO For CIWA 8-14 Last administered on 01/04/19at 18:17; Start 01/04/19 at 17:45; Stop 01/10/19 at 07:34; Status DC Lorazepam (Ativan) 8 mg PRN Q1HR PRN PO For CIWA 15 or greater; Start 01/04/19 at 17:45; Stop 01/10/19 at 07:34; Status DC Haloperidol Lactate (Haldol Inj) 5 mg PRN Q4HRS PRN IVP Hallucina tns,Confusn,Delirium Last administered on 01/13/19at 11:22; Start 01/04/19 at 17:45 Diphenhydramine HCl (Benadryl) 25 mg PRN Q15MIN PRN IVP EPS symptoms 2'Haldol admin; Start 01/04/19 at 17:45 Clonidine HCl (Catapres) 0.1 mg PRN Q1HR PRN PO SBP > 180 or DBP > 100, MRX3 Last administered on 01/08/19at 07:18; Start 01/04/19 at 17:45; Stop 01/08/19 at 08:58; Status DC Lorazepam (Ativan Inj) 2 mg PRN Q1HR PRN IV For CIWA 8-14 Last administered on 01/17/19at 00:21; Start 01/04/19 at 19:15 Lorazepam (Ativan Inj) 4 mg PRN Q1HR PRN IV For CIWA 15 or greater Last administered on 01/05/19at 06:28; Start 01/04/19 at 19:15 Lorazepam (Ativan Inj) 2 mg PRN Q15MIN PRN IV SEE COMMENTS; Start 01/04/19 at 19:15; Status UNV Lorazepam (Ativan Inj) 4 mg PRN Q15MIN PRN IV SEE COMMENTS; Start 01/04/19 at 19:15; Status UNV Ondansetron HCl (Zofran) 4 mg PRN Q6HRS PRN IV NAUSEA/VOMITING Last administere d on 01/04/19at 19:34; Start 01/04/19 at 19:30 Pantoprazole Sodium (PROTONIX VIAL for IV PUSH) 40 mg DAILYAC IVP Last administered on 01/06/19at 10:36; Start 01/06/19 at 10:00; Stop 01/06/19 at 12:17; Status DC Phytonadione (Vitamin K Ampule) 10 mg 1X ONCE SQ Last administered on 01/06/19at 10:36; Start 01/06/19 at 10:15; Stop 01/06/19 at 10:16; Status DC Piperacillin Sod/ Tazobactam Sod (Zosyn Per Pharmacy) 1 each PRN DAILY PRN MC SEE COMMENTS; Start 01/06/19 at 10:30 Piperacillin Sod/ Tazobactam Sod 3.375 gm/Sodium Chloride 50 ml @ 100 mls/hr Q6HRS IV Last administered on 01/17/19at 06:17; Start 01/06/19 at 11:00 Lactulose (Lactulose) 30 gm Q6HRS NG Last administered on 01/09/19at 05:53; Start 01/06/19 at 12:00; Stop 01/09/19 at 10:51; Status DC Metronidazole 100 ml @ 100 mls/hr Q8HRS IV Last administered on 01/09/19at 05:53; Start 01/06/19 at 14:00; Stop 01/09/19 at 07:19; Status DC Pantoprazole Sodium 80 mg/ Sodium Chloride 100 ml @ 10 mls/hr Q10H IV Last administered on 01/10/19at 02:31; Start 01/06/19 at 12:30; Stop 01/10/19 at 12:11; Status DC Octreotide Acetate 500 mcg/ Sodium Chloride 101 ml @ 0 mls/hr CONT PRN IV SEE I/O RECORD Last administered on 01/08/19at 06:08; Start 01/06/19 at 12:15; Stop 01/08/19 at 10:48; Status DC Norepinephrine Bitartrate 250 ml @ 14.235 mls/ hr CONT PRN IV SEE I/O RECORD; Start 01/06/19 at 20:15; Stop 01/13/19 at 13:28; Status DC Albumin Human 100 ml @ 100 mls/hr 1X ONCE IV Last administered on 01/06/19at 21:30; Start 01/06/19 at 20:15; Stop 01/06/19 at 21:14; Status DC Phytonadione (Vitamin K Ampule) 10 mg 1X ONCE SQ Last administered on 01/07/19at 13:04; Start 01/07/19 at 11:45; Stop 01/07/19 at 11:46; Status DC Albuterol/ Ipratropium (Duoneb) 3 ml RTQID NEB Last administered on 01/17/19at 07:44; Start 01/07/19 at 16:00 Sodium Chloride 1,000 ml @ 75 mls/hr [id number] IV Last administered on 01/08/19at 23:47; Start 01/08/19 at 06:00; Stop 01/09/19 at 10:19; Status DC Labetalol HCl (Normodyne Iv Push) 10 mg PRN Q4HRS PRN IVP HYPERTENSION; Start 01/08/19 at 09:00 Potassium Bicarbonate (Potassium Effervescent Tablet) 40 meq 1X ONCE PEG Last administered on 01/08/19at 12:24; Start 01/08/19 at 11:30; Stop 01/08/19 at 11:33; Status DC Potassium Bicarbonate (Potassium Effervescent Tablet) 40 meq 1X ONCE PEG Last administered on 01/08/19at 16:06; Start 01/08/19 at 16:00; Stop 01/08/19 at 16:01; Status DC Potassium Bicarbonate (Potassium Effervescent Tablet) 80 meq 1X ONCE PEG Last administered on 01/09/19at 06:58; Start 01/09/19 at 06:15; Stop 01/09/19 at 06:21 ; Status DC Artificial Tears (Artificial Tears) 1 drop PRN Q15MIN PRN OU DRY EYE Last administered on 01/09/19at 10:11; Start 01/09/19 at 10:00 Dextrose/Sodium Chloride 1,000 ml @ 75 mls/hr [id number] IV Last administered on 01/09/19at 11:03; Start 01/09/19 at 10:30; Stop 01/09/19 at 12:20; Status DC Potassium Chloride/Water 50 ml @ 50 mls/hr Q1H IV ; Start 01/09/19 at 10:30; Stop 01/09/19 at 12:29; Status UNV Potassium Chloride/Water 100 ml @ 100 mls/hr Q1H IV ; Start 01/09/19 at 11:00; Stop 01/09/19 at 11:00; Status DC Lactulose (Lactulose) 30 gm BID NG Last administered on 01/09/19at 20:52; Start 01/09/19 at 21:00; Stop 01/10/19 at 13:57; Status DC Dextrose 1,000 ml @ 100 mls/hr Q10H IV Last administered on 01/13/19at 11:22; Start 01/09/19 at 12:30; Stop 01/14/19 at 13:58; Status DC Info (Tpn Per Pharmacy) 1 each PRN DAILY PRN MC SEE COMMENTS Last administered on 01/12/19at 13:31; Start 01/09/19 at 15:15; Stop 01/13/19 at 13:27; Status DC Potassium Chloride 50 meq/ Potassium Phosphate 13.6 mmol/Magnesium Sulfate 10 meq/ Calcium Gluconate 10 meq/ Multivitamins 10 ml/Chromium/ Copper/Manganese/ Seleni/Zn 1 ml/ Total Parenteral Nutrition/Amino Acids/Dextrose/ Fat Emulsion Intravenous 1,512 ml @ 63 mls/hr TPN CONT IV Last administered on 01/09/19at 21:41; Start 01/09/19 at 22:00; Stop 01/10/19 at 21:59; Status DC Potassium Chloride/Water 50 ml @ 50 mls/hr Q1H IV Last administered on 01/09/19at 20:51; Start 01/09/19 at 18:00; Stop 01/09/19 at 21:59; Status DC Potassium Phosphate 13.6 mmol/Dextrose 254.5333 ml @ 62.646 m... 1X ONCE IV Last administered on 01/09/19at 21:49; Start 01/09/19 at 22:00; Stop 01/10/19 at 08:03; Status DC Potassium Chloride/Water 50 ml @ 50 mls/hr Q1H IV Last administered on 01/10/19at 11:41; Start 01/10/19 at 08:00; Stop 01/10/19 at 11:59; Status DC Sodium Phosphate 40 mmol/Dextrose 263.3333 ml @ 62.5 mls/hr 1X ONCE IV ; Start 01/10/19 at 08:00; Stop 01/10/19 at 08:49; Status DC Potassium Phosphate 12 mmol/ Sodium Chloride 254 ml @ 125 mls/hr Q2H IV Last administered on 01/10/19at 15:24; Start 01/10/19 at 08:00; Stop 01/10/19 at 11:59; Status DC Potassium Chloride 40 meq/ Potassium Acetate 40 meq/Potassium Phosphate 15 mmol/ Magnesium Sulfate 10 meq/Calcium Gluconate 10 meq/ Multivitamins 10 ml/Chromium/ Copper/Manganese/ Seleni/Zn 1 ml/ Total Parenteral Nutrition/Amino Acids/Dextrose/ Fat Emulsion Intravenous 1,512 ml @ 63 mls/hr TPN CONT IV L ast administered on 01/10/19at 22:08; Start 01/10/19 at 22:00; Stop 01/11/19 at 21:59; Status DC Pantoprazole Sodium (PROTONIX VIAL for IV PUSH) 40 mg BIDAC IVP Last administered on 01/14/19 08:54; Start 01/10/19 at 16:30; Stop 01/14/19 at 11:38; Status DC Sodium Chloride 250 ml @ 250 mls/hr 1X ONCE IV Last administered on 01/10/19at 19:30; Start 01/10/19 at 19:30; Stop 01/10/19 at 20:29; Status DC Lorazepam (Ativan Inj) 1 mg PRN Q6HRS PRN IV ANXIETY / AGITATION Last administered on 01/15/19at 00:38; Start 01/10/19 at 23:15 Potassium Chloride 40 meq/ Potassium Acetate 40 meq/Potassium Phosphate 15 mmol/ Magnesium Sulfate 10 meq/Calcium Gluconate 10 meq/ Multivitamins 10 ml/Chromium/ Copper/Manganese/ Seleni/Zn 1 ml/ Total Parenteral Nutrition/Amino Aci ds/Dextrose/ Fat Emulsion Intravenous 1,512 ml @ 63 mls/hr TPN CONT IV Last administered on 01/11/19at 21:34; Start 01/11/19 at 22:00; Stop 01/12/19 at 21:59; Status DC Morphine Sulfate (Morphine Sulfate) 2 mg 1X ONCE IV Last administered on 01/12/19at 10:40; Start 01/12/19 at 09:30; Stop 01/12/19 at 09:31; Status DC Potassium Phosphate 13.6 mmol/Dextrose 104.5333 ml @ 52.267 m... Q2H IV Last administered on 01/12/19at 13:22; Start 01/12/19 at 11:30; Stop 01/12/19 at 15:29; Status DC Vancomycin HCl (Vanco Per Pharmacy) 1 each PRN DAILY PRN MC SEE COMMENTS Last administered on 01/15/19 03:09; Start 01/12/19 at 11:15; Stop 01/15/19 at 08:54; Status DC Vancomycin HCl 2 gm/Sodium Chloride 500 ml @ 250 mls/hr ONCE ONCE IV Last administered on 01/12/19 13:22; Start 01/12/19 at 12:00; Stop 01/12/19 at 13:59; Status DC Potassium Chloride 40 meq/ Potassium Acetate 40 meq/Potassium Phosphate 15 mmol/ Magnesium Sulfate 10 meq/Calcium Gluconate 10 meq/ Multivitamins 10 ml/Chromium/ Copper/Manganese/ Seleni/Zn 1 ml/ Total Parenteral Nutrition/Amino Acids/Dextrose/ Fat Emulsion Intravenous 1,512 ml @ 63 mls/hr TPN CONT IV Last administered on 01/12/19at 21:48; Start 01/12/19 at 22:00; Stop 01/13/19 at 21:59; Status DC Vancomycin HCl 2 gm/Sodium Chloride 500 ml @ 250 mls/hr 1X ONCE IV Last administered on 01/13/19at 08:27; Start 01/13/19 at 08:00; Stop 01/13/19 at 09:59; Status DC Vancomycin HCl 1.25 gm/Sodium Chloride 250 ml @ 167 mls/hr Q12H IV Last administered on 01/14/19at 08:54; Start 01/13/19 at 21:00; Stop 01/14/19 at 23:22; Status DC Vancomycin HCl (Vancomycin Trough Level) 1 each 1X ONCE MC ; Start 01/14/19 at 20:30; Stop 01/15/19 at 10:33; Status DC Lactobacillus Rhamnosus (Culturelle) 1 cap BID PO Last administered on 01/17/19at 07:50; Start 01/14/19 at 21:00 Pantoprazole Sodium (Protonix) 40 mg DAILYAC PO Last administered on 01/17/19at 07:50; Start 01/15/19 at 07:30 Dextrose/Sodium Chloride 1,000 ml @ 150 mls/hr Q6H40M IV Last administered on 01/17/19at 00:05; Start 01/14/19 at 14:00 Vancomycin HCl 1 gm/Sodium Chloride 250 ml @ 250 mls/hr Q12H IV Last administered on 01/15/19at 06:18; Start 01/15/19 at 06:00; Stop 01/15/19 at 08:54; Status DC Vancomycin HCl (Vancomycin Trough Level) 1 each 1X ONCE MC ; Start 01/16/19 at 17:30; Stop 01/16/19 at 17:30; Status DC Furosemide (Lasix) 40 mg 1X ONCE IVP Last administered on 01/16/19at 10:50; Start 01/16/19 at 10:15; Stop 01/16/19 at 10:16; Status DC Furosemide (Lasix) 40 mg [id number] IVP Last administered on 01/16/19at 13:12; Start 01/16/19 at 14:00 Active Scripts Active Reported Omeprazole 40 Mg Capsule.dr 1 Cap PO DAILY Vitals/I & O Vital Sign - Last 24 Hours 01/16/19 01/16/19 01/16/19 01/16/19 10:44 11:22 15:00 15:31 Temp 95.8 95.7 95.8 95.7 Pulse 84 83 Resp 20 16 B/P (MAP) 108/67 (81) 100/57 (71) Pulse Ox 93 95 93 93 O2 Delivery Room Air Room Air Room Air Room Air 01/16/19 01/16/19 01/16/19 01/16/19 19:00 19:30 19:30 19:38 Temp 96.8 96.8 Pulse 83 Resp 20 B/P (MAP) 97/67 (77) Pulse Ox 97 96 95 O2 Delivery Room Air Room Air Room Air Room Air 01/16/19 01/17/19 01/17/19 01/17/19 23:00 03:00 07:00 07:44 Temp 94.9 95.6 97.9 94.9 95.6 97.9 Pulse 82 81 89 Resp 24 30 22 B/P (MAP) 114/74 (87) 90/59 (69) 85/51 (62) Pulse Ox 98 99 96 93 O2 Delivery Room Air Room Air Room Air Room Air 01/17/19 07:45 O2 Delivery Room Air Intake and Output 0 01/16/19 01/16/19 01/17/19 14:59 22:59 06:59 Intake Total 50 ml 400 ml Output Total 40 ml 150 ml 50 ml Balance -40 ml -100 ml 350 ml DANG OWUSU MD Jan 17, 2019 08:08
--- NOTE | 2019-01-17 08:33 | PDOC ---
Infectious Disease Note Subjective Subjective mumbles ROS ROS no n/v/d/ Vital Sign Vital Signs Vital Signs Date Time Temp Pulse Resp B/P (MAP) Pulse Ox O2 Delivery O2 Flow Rate FiO2 01/17/19 07:45 Room Air 01/17/19 07:44 93 01/17/19 07:00 97.9 89 22 85/51 (62) 97.9 Physical Exam PHYSICAL EXAM GENERAL: Propped up in bed, awake, weak appearing, markedly jaundiced, mumbling HEENT: Pupils equally round and reactive. Icterus. Oral cavity dry NECK: Supple. LUNGS: Decreased in bases HEART: S1 and S2 regular ABDOMEN: Distended, soft, no grimace or guarding to palpation. Bowel sounds present. GENITOURINARY: Indwelling Galdamez in place. EXTREMITIES: Generalized edema. No cyanosis SKIN: Warm to touch. Multiple ecchymoses lower extremities. + rash NEUROLOGIC: Awake, confused and follows simple commands RIJ -clean Labs Lab Laboratory Tests Test 01/17/19 06:15 White Blood Count 22.8 x10^3/uL (4.0-11.0) Red Blood Count 2.29 x10^6/uL (4.30-5.70) Hemoglobin 8.3 g/dL (13.0-17.5) Hematocrit 25.0 % (39.0-53.0) Mean Corpuscular Volume 109 fL (79-100) Mean Corpuscular Hemoglobin 36 pg (25-35) Mean Corpuscular Hemoglobin Concent 33 g/dL (31-37) Red Cell Distribution Width 26.3 % (11.5-14.5) Platelet Count 84 x10^3/uL (140-400) Neutrophils (%) (Auto) 91 % (31-73) Lymphocytes (%) (Auto) 2 % (24-48) Monocytes (%) (Auto) 6 % (0-9) Eosinophils (%) (Auto) 1 % (0-3) Basophils (%) (Auto) 1 % (0-3) Neutrophils # (Auto) 20.8 x10^3/uL (1.8-7.7) Lymphocytes # (Auto) 0.5 x10^3/uL (1.0-4.8) Monocytes # (Auto) 1.3 x10^3/uL (0.0-1.1) Eosinophils # (Auto) 0.1 x10^3/uL (0.0-0.7) Basophils # (Auto) 0.1 x10^3/uL (0.0-0.2) Sodium Level 133 mmol/L (136-145) Potassium Level 4.4 mmol/L (3.5-5.1) Chloride Level 102 mmol/L (98-107) Carbon Dioxide Level 14 mmol/L (21-32) Anion Gap 17 (6-14) Blood Urea Nitrogen 69 mg/dL (8-26) Creatinine 3.7 mg/dL (0.7-1.3) Estimated GFR (Cockcroft-Gault) 17.9 Glucose Level 84 mg/dL (70-99) Calcium Level 7.0 mg/dL (8.5-10.1) Phosphorus Level 8.8 mg/dL (2.6-4.7) Magnesium Level 2.3 mg/dL (1.8-2.4) Micro Microbiology 01/12/19 Blood Culture - Preliminary, Resulted NO GROWTH AFTER 4 DAYS 01/04/19 Urine Culture - Final, Complete 01/04/19 Urine Culture Result 1 (DONALD) - Final, Complete Objective Assessment Fever improved BC neg so far Leukocytosis reactive, likely from etoh hepatitis Thrombocytopenia - trending liver disease possible med Transaminitis - now on TPN ? Sepsis w/ hypotension, lactic acidosis- all cults neg Alcoholic hepatitis Hepatic failure with ascites and hepatic encephalopathy - better - CT head -neg DEE DEE Coagulopathy - S/p FFP and Vit K Pancreatitis, lipase >3400 - improved Hepatic mass Colitis Esophagitis Acute anemia s/p PRBCs Possible cholecystitis on U/S -Appreciate Gen Surg evaluation Plan Plan of Care Cont Zosyn (since 01/06) Off Vanc with increase Cr Repeat BC 01/12 neg so far DNR/DNI D/w nursing Poor prognosis IVON WOODARD MD Jan 17, 2019 08:33
[2019-01-17 11:00] VITALS: BP 96/54
--- NOTE | 2019-01-17 11:00 | NUR ---
Pat from palliative had family meeting this morning with and daughter. They have signed outside hospital DNR form. They understand patient condition is declining. Team will now work with SW to discuss the potential hospice placement.
[2019-01-17] MEDS ORDERED: fentaNYL PF VIAL 100 MCG/2 ML VIAL IV PRN (11:15)
[2019-01-17 11:49] LABS: ALBUMIN 1.4 g/dL (3.4-5.0); TOTAL PROTEIN 5.1 g/dL (6.4-8.2)
[2019-01-17 11:51] LABS: DIRECT BILIRUBIN 20.7 mg/dL (0.0-0.2); TOTAL BILIRUBIN 26.1 mg/dL (0.2-1.0)
[2019-01-17 11:56] LABS: PROTHROMBIN TIME PATIENT 26.8 SEC (11.7-14.0)
[2019-01-17] MEDS ORDERED: fentaNYL 25MCG/HR PATCH 1 PATCH PATCH.TD72 TD SCH (12:00)
--- NOTE | 2019-01-17 12:09 | PDOC ---
Objective: Objective: D/w nurse - worse than yesterday, not eating and hasn't stooled, now Hospice being discussed. Vital Signs: Vital Signs Date Time Temp Pulse Resp B/P (MAP) Pulse Ox O2 Delivery O2 Flow Rate FiO2 01/17/19 11:31 Room Air 01/17/19 11:00 97.6 78 21 96/54 (68) 94 97.6 Labs: Laboratory Tests Test 01/17/19 06:15 01/17/19 11:35 White Blood Count 22.8 x10^3/uL Red Blood Count 2.29 x10^6/uL Hemoglobin 8.3 g/dL Hematocrit 25.0 % Mean Corpuscular Volume 109 fL Mean Corpuscular Hemoglobin 36 pg Mean Corpuscular Hemoglobin Concent 33 g/dL Red Cell Distribution Width 26.3 % Platelet Count 84 x10^3/uL Neutrophils (%) (Auto) 91 % Lymphocytes (%) (Auto) 2 % Monocytes (%) (Auto) 6 % Eosinophils (%) (Auto) 1 % Basophils (%) (Auto) 1 % Neutrophils # (Auto) 20.8 x10^3/uL Lymphocytes # (Auto) 0.5 x10^3/uL Monocytes # (Auto) 1.3 x10^3/uL Eosinophils # (Auto) 0.1 x10^3/uL Basophils # (Auto) 0.1 x10^3/uL Sodium Level 133 mmol/L Potassium Level 4.4 mmol/L Chloride Level 102 mmol/L Carbon Dioxide Level 14 mmol/L Anion Gap 17 Blood Urea Nitrogen 69 mg/dL Creatinine 3.7 mg/dL Estimated GFR (Cockcroft-Gault) 17.9 Glucose Level 84 mg/dL Calcium Level 7.0 mg/dL Phosphorus Level 8.8 mg/dL Magnesium Level 2.3 mg/dL Total Bilirubin 26.1 mg/dL Direct Bilirubin 20.7 mg/dL Aspartate Amino Transf (AST/SGOT) 199 U/L Alanine Aminotransferase (ALT/SGPT) 132 U/L Alkaline Phosphatase 158 U/L Total Protein 5.1 g/dL Albumin 1.4 g/dL Prothrombin Time 26.8 SEC Prothromb Time International Ratio 2.5 PE: GEN: ill ABD: stable - some distention, quiet EXTREMITY: generally edematous SKIN: +jaundice NEURO/PSYCH: mumbling A/P: Alcoholic liver disease, ?hepatorenal syndrome, encephalopathy Liver lesion - unable to do MRI -- Hospice discussion in process. EMILEE TRAMMELL Jan 17, 2019 12:08
--- NOTE | 2019-01-17 12:16 | PDOC2 ---
PALLIATIVE CARE Palliative Care Note Palliative Care Patient attempting to converse with family. Remains confused/agitated at times. Discussed with Dr. Cervantes options for care. Recommends Home with Hospice. Spoke with and daughter. Reviewed medical condition and decline in renal function. Patient is not a candidate for dialysis. Poor prognosis Option of going home with Hospice support discussed. They would like to speak with Hospice staff. They understand limited options available. Outside the Hospital DNR/DNI form signed. Spoke with Isaiah from [facility]. Information has been faxed per Zayda EID. [id number]; spoke with Isaiah. Patient has been accepted by [facility]. Dr. Cervantes and Zayda malhotra. LOREE CYR Jan 17, 2019 12:16
--- NOTE | 2019-01-17 12:45 | NUR ---
SS following up with discharge planning. Pt and family agreeable to home with hospice at discharge. [facility], ; fax [phone], agreeable to take case. SS phoned and faxed referral to [facility]. Pt will discharge tomorrow to home with [facility]. Pt's RN notified.
--- NOTE | 2019-01-17 13:55 | PDOC ---
PROGRESS NOTES Subjective Subjective HPI - f/u of Thrombocytopenia ROS - confused/agitated Objective Objective Vital Signs Date Time Temp Pulse Resp B/P (MAP) Pulse Ox O2 Delivery O2 Flow Rate FiO2 01/17/19 12:08 Room Air 01/17/19 11:00 97.6 78 21 96/54 (68) 94 97.6 01/15/19 22:57 15.0 Intake and Output 01/17/19 06:59 Intake Total 450 ml Output Total 240 ml Balance 210 ml Intake Oral 450 ml Output Urine Total 240 ml Physical Exam General: No acute distress Psych/Mental Status: Other (confused) Assessment Assessment Problems Medical Problems: (1) Alcoholic liver disease Status: Acute (2) Cholelithiasis Status: Acute (3) Colitis Status: Acute (4) Jaundice Status: Acute (5) Pancreatitis Status: Acute (6) Thrombocytopenia Status: Acute Imp/Plan: 1. Thrombocytopenia. Secondary to liver dysfunction. Improved a little from admission. Plt 84. 2. Coagulopathy from liver failure. Given vit k 3. ?hepatic mass. Recommend MRI liver with contrast once the renal function improves. If cr does not improve, f/u with PCP for f/u MRI. 4. Liver failure. Most likely secondary to etoh 5. Colitis. Management per primary team 6. Anemia, Hb 8.3. monitor cbc 7. Appreciate palliative care consult, hospice being considered. Comment Review of Relevant I have reviewed the following items pierre (where applicable) has been applied. Labs Laboratory Tests Test 01/16/19 06:30 01/17/19 06:15 01/17/19 11:35 White Blood Count 18.8 x10^3/uL (4.0-11.0) 22.8 x10^3/uL (4.0-11.0) Red Blood Count 2.11 x10^6/uL (4.30-5.70) 2.29 x10^6/uL (4.30-5.70) Hemoglobin 7.7 g/dL (13.0-17.5) 8.3 g/dL (13.0-17.5) Hematocrit 23.0 % (39.0-53.0) 25.0 % (39.0-53.0) Mean Corpuscular Volume 109 fL (79-100) 109 fL (79-100) Mean Corpuscular Hemoglobin 37 pg (25-35) 36 pg (25-35) Mean Corpuscular Hemoglobin Concent 34 g/dL (31-37) 33 g/dL (31-37) Red Cell Distribution Width 26.3 % (11.5-14.5) 26.3 % (11.5-14.5) Platelet Count 94 x10^3/uL (140-400) 84 x10^3/uL (140-400) Neutrophils (%) (Auto) 89 % (31-73) 91 % (31-73) Lymphocytes (%) (Auto) 4 % (24-48) 2 % (24-48) Monocytes (%) (Auto) 5 % (0-9) 6 % (0-9) Eosinophils (%) (Auto) 1 % (0-3) 1 % (0-3) Basophils (%) (Auto) 1 % (0-3) 1 % (0-3) Neutrophils # (Auto) 16.6 x10^3/uL (1.8-7.7) 20.8 x10^3/uL (1.8-7.7) Lymphocytes # (Auto) 0.8 x10^3/uL (1.0-4.8) 0.5 x10^3/uL (1.0-4.8) Monocytes # (Auto) 0.9 x10^3/uL (0.0-1.1) 1.3 x10^3/uL (0.0-1.1) Eosinophils # (Auto) 0.3 x10^3/uL (0.0-0.7) 0.1 x10^3/uL (0.0-0.7) Basophils # (Auto) 0.2 x10^3/uL (0.0-0.2) 0.1 x10^3/uL (0.0-0.2) Segmented Neutrophils % 85 % (35-66) Band Neutrophils % 4 % (0-9) Lymphocytes % 6 % (24-48) Monocytes % 2 % (0-10) Eosinophils % 1 % (0-5) Myelocytes % 2 % (0-0) Platelet Estimate Decreased (ADEQUATE) Large Platelets Few Anisocytosis Marked Macrocytosis Present Sodium Level 132 mmol/L (136-145) 133 mmol/L (136-145) Potassium Level 4.0 mmol/L (3.5-5.1) 4.4 mmol/L (3.5-5.1) Chloride Level 102 mmol/L (98-107) 102 mmol/L (98-107) Carbon Dioxide Level 17 mmol/L (21-32) 14 mmol/L (21-32) Anion Gap 13 (6-14) 17 (6-14) Blood Urea Nitrogen 60 mg/dL (8-26) 69 mg/dL (8-26) Creatinine 2.8 mg/dL (0.7-1.3) 3.7 mg/dL (0.7-1.3) Estimated GFR (Cockcroft-Gault) 24.7 17.9 Glucose Level 124 mg/dL (70-99) 84 mg/dL (70-99) Calcium Level 7.0 mg/dL (8.5-10.1) 7.0 mg/dL (8.5-10.1) Phosphorus Level 7.3 mg/dL (2.6-4.7) 8.8 mg/dL (2.6-4.7) Magnesium Level 2.2 mg/dL (1.8-2.4) 2.3 mg/dL (1.8-2.4) Total Bilirubin 26.1 mg/dL (0.2-1.0) Direct Bilirubin 20.7 mg/dL (0.0-0.2) Aspartate Amino Transf (AST/SGOT) 199 U/L (15-37) Alanine Aminotransferase (ALT/SGPT) 132 U/L (16-63) Alkaline Phosphatase 158 U/L (46-116) Total Protein 5.1 g/dL (6.4-8.2) Albumin 1.4 g/dL (3.4-5.0) Prothrombin Time 26.8 SEC (11.7-14.0) Prothromb Time International Ratio 2.5 (0.8-1.1) Laboratory Tests Test 01/17/19 06:15 01/17/19 11:35 White Blood Count 22.8 x10^3/uL (4.0-11.0) Red Blood Count 2.29 x10^6/uL (4.30-5.70) Hemoglobin 8.3 g/dL (13.0-17.5) Hematocrit 25.0 % (39.0-53.0) Mean Corpuscular Volume 109 fL (79-100) Mean Corpuscular Hemoglobin 36 pg (25-35) Mean Corpuscular Hemoglobin Concent 33 g/dL (31-37) Red Cell Distribution Width 26.3 % (11.5-14.5) Platelet Count 84 x10^3/uL (140-400) Neutrophils (%) (Auto) 91 % (31-73) Lymphocytes (%) (Auto) 2 % (24-48) Monocytes (%) (Auto) 6 % (0-9) Eosinophils (%) (Auto) 1 % (0-3) Basophils (%) (Auto) 1 % (0-3) Neutrophils # (Auto) 20.8 x10^3/uL (1.8-7.7) Lymphocytes # (Auto) 0.5 x10^3/uL (1.0-4.8) Monocytes # (Auto) 1.3 x10^3/uL (0.0-1.1) Eosinophils # (Auto) 0.1 x10^3/uL (0.0-0.7) Basophils # (Auto) 0.1 x10^3/uL (0.0-0.2) Sodium Level 133 mmol/L (136-145) Potassium Level 4.4 mmol/L (3.5-5.1) Chloride Level 102 mmol/L (98-107) Carbon Dioxide Level 14 mmol/L (21-32) Anion Gap 17 (6-14) Blood Urea Nitrogen 69 mg/dL (8-26) Creatinine 3.7 mg/dL (0.7-1.3) Estimated GFR (Cockcroft-Gault) 17.9 Glucose Level 84 mg/dL (70-99) Calcium Level 7.0 mg/dL (8.5-10.1) Phosphorus Level 8.8 mg/dL (2.6-4.7) Magnesium Level 2.3 mg/dL (1.8-2.4) Total Bilirubin 26.1 mg/dL (0.2-1.0) Direct Bilirubin 20.7 mg/dL (0.0-0.2) Aspartate Amino Transf (AST/SGOT) 199 U/L (15-37) Alanine Aminotransferase (ALT/SGPT) 132 U/L (16-63) Alkaline Phosphatase 158 U/L (46-116) Total Protein 5.1 g/dL (6.4-8.2) Albumin 1.4 g/dL (3.4-5.0) Prothrombin Time 26.8 SEC (11.7-14.0) Prothromb Time International Ratio 2.5 (0.8-1.1) Microbiology 01/12/19 Blood Culture - Final, Complete NO GROWTH AFTER 5 DAYS 01/04/19 Urine Culture - Final, Complete 01/04/19 Urine Culture Result 1 (DONALD) - Final, Complete Medications Current Medications Iohexol (Omnipaque 240 Mg/ml) 30 ml 1X ONCE PO Last administered on 01/04/19at 15:15; Start 01/04/19 at 15:15; Stop 01/04/19 at 15:17; Status DC Iohexol (Omnipaque 300 Mg/ml) 75 ml 1X ONCE IV Last administered on 01/04/19at 16:20; Start 01/04/19 at 15:15; Stop 01/04/19 at 15:17; Status DC Info (CONTRAST GIVEN -- Rx MONITORING) 1 each PRN DAILY PRN MC SEE COMMENTS; Start 01/04/19 at 15:30; Stop 01/06/19 at 15:29; Status DC Multivitamins 10 ml/Thiamine HCl 100 mg/Folic Acid 1 mg/Sodium Chloride 1,011.2 ml @ 100 mls/ hr DAILY IV Last administered on 01/08/19at 08:12; Start 01/04/19 at 18:00; Stop 01/08/19 at 19:07; Status DC Chlordiazepoxide (Librium) 50 mg PRN Q1HR PRN PO For CIWA 8-14 Last administered on 01/04/19at 18:17; Start 01/04/19 at 17:45 Chlordiazepoxide (Librium) 100 mg PRN Q1HR PRN PO For CIWA 15 or greater Last administered on 01/05/19at 06:27; Start 01/04/19 at 17:45 Lorazepam (Ativan) 4 mg PRN Q1HR PRN PO For CIWA 8-14 Last administered on 01/04/19at 18:17; Start 01/04/19 at 17:45; Stop 01/10/19 at 07:34; Status DC Lorazepam (Ativan) 8 mg PRN Q1HR PRN PO For CIWA 15 or greater; Start 01/04/19 at 17:45; Stop 01/10/19 at 07:34; Status DC Haloperidol Lactate (Haldol Inj) 5 mg PRN Q4HRS PRN IVP Hallucinatns,Confusn,Delirium Last administered on 01/13/19at 11:22; Start 01/04/19 at 17:45 Diphenhydramine HCl (Benadryl) 25 mg PRN Q15MIN PRN IVP EPS symptoms 2'Haldol admin; Start 01/04/19 at 17:45 Clonidine HCl (Catapres) 0.1 mg PRN Q1HR PRN PO SBP > 180 or DBP > 100, MRX3 Last administered on 01/08/19at 07:18; Start 01/04/19 at 17:45; Stop 01/08/19 at 08:58; Status DC Lorazepam (Ativan Inj) 2 mg PRN Q1HR PRN IV For CIWA 8-14 Last administered on 01/17/19at 00:21; Start 01/04/19 at 19:15 Lorazepam (Ativan Inj) 4 mg PRN Q1HR PRN IV For CIWA 15 or greater Last administered on 01/05/19at 06:28; Start 01/04/19 at 19:15 Lorazepam (Ativan Inj) 2 mg PRN Q15MIN PRN IV SEE COMMENTS; Start 01/04/19 at 19:15; Status UNV Lorazepam (Ativan Inj) 4 mg PRN Q15MIN PRN IV SEE COMMENTS; Start 01/04/19 at 19:15; Status UNV Ondansetron HCl (Zofran) 4 mg PRN Q6HRS PRN IV NAUSEA/VOMITING Last administered on 01/04/19at 19:34; Start 01/04/19 at 19:30 Pantoprazole Sodium (PROTONIX VIAL for IV PUSH) 40 mg DAILYAC IVP Last administered on 01/06/19at 10:36; Start 01/06/19 at 10:00; Stop 01/06/19 at 12:17; Status DC Phytonadione (Vitamin K Ampule) 10 mg 1X ONCE SQ Last administered on 01/06/19 at 10:36; Start 01/06/19 at 10:15; Stop 01/06/19 at 10:16; Status DC Piperacillin Sod/ Tazobactam Sod (Zosyn Per Pharmacy) 1 each PRN DAILY PRN MC SEE COMMENTS; Start 01/06/19 at 10:30 Piperacillin Sod/ Tazobactam Sod 3.375 gm/Sodium Chloride 50 ml @ 100 mls/hr Q6HRS IV Last administered on 01/17/19at 11:28; Start 01/06/19 at 11:00 Lactulose (Lactulose) 30 gm Q6HRS NG Last administered on 01/09/19at 05:53; Start 01/06/19 at 12:00; Stop 01/09/19 at 10:51; Status DC Metronidazole 100 ml @ 100 mls/hr Q8HRS IV Last administered on 01/09/19at 05:53; Start 01/06/19 at 14:00; Stop 01/09/19 at 07:19; Status DC Pantoprazole Sodium 80 mg/ Sodium Chloride 100 ml @ 10 mls/hr Q10H IV Last administered on 01/10/19at 02:31; Start 01/06/19 at 12:30; Stop 01/10/19 at 12:11; Status DC Octreotide Acetate 500 mcg/ Sodium Chloride 101 ml @ 0 mls/hr CONT PRN IV SEE I/O RECORD Last administered on 01/08/19at 06:08; Start 01/06/19 at 12:15; Stop 01/08/19 at 10:48; Status DC Norepinephrine Bitartrate 250 ml @ 14.235 mls/ hr CONT PRN IV SEE I/O RECORD; Start 01/06/19 at 20:15; Stop 01/13/19 at 13:28; Status DC Albumin Human 100 ml @ 100 mls/hr 1X ONCE IV Last administered on 01/06/19at 21:30; Start 01/06/19 at 20:15; Stop 01/06/19 at 21:14; Status DC Phytonadione (Vitamin K Ampule) 10 mg 1X ONCE SQ Last administered on 01/07/19at 13:04; Start 01/07/19 at 11:45; Stop 01/07/19 at 11:46; Status DC Albuterol/ Ipratropium (Duoneb) 3 ml RTQID NEB Last administered on 01/17/19at 11:05; Start 01/07/19 at 16:00 Sodium Chloride 1,000 ml @ 75 mls/hr [id number] IV Last administered on 01/08/19at 23:47; Start 01/08/19 at 06:00; Stop 01/09/19 at 10:19; Status DC Labetalol HCl (Normodyne Iv Push) 10 mg PRN Q4HRS PRN IVP HYPERTENSION; Start 01/08/19 at 09:00 Potassium Bicarbonate (Potassium Effervescent Tablet) 40 meq 1X ONCE PEG Last administered on 01/08/19at 12:24; Start 01/08/19 at 11:30; Stop 01/08/19 at 1 1:33; Status DC Potassium Bicarbonate (Potassium Effervescent Tablet) 40 meq 1X ONCE PEG Last administered on 01/08/19at 16:06; Start 01/08/19 at 16:00; Stop 01/08/19 at 16:01; Status DC Potassium Bicarbonate (Potassium Effervescent Tablet) 80 meq 1X ONCE PEG Last administered on 01/09/19at 06:58; Start 01/09/19 at 06:15; Stop 01/09/19 at 06:21; Status DC Artificial Tears (Artificial Tears) 1 drop PRN Q15MIN PRN OU DRY EYE Last administered on 01/09/19at 10:11; Start 01/09/19 at 10:00 Dextrose/Sodium Chloride 1,000 ml @ 75 mls/hr [id number] IV Last administered on 01/09/19at 11:03; Start 01/09/19 at 10:30; Stop 01/09/19 at 12:20; Status DC Potassium Chloride/Water 50 ml @ 50 mls/hr Q1H IV ; Start 01/09/19 at 10:30; Stop 01/09/19 at 12:29; Status UNV Potassium Chloride/Water 100 ml @ 100 mls/hr Q1H IV ; Start 01/09/19 at 11:00; Stop 01/09/19 at 11:00; Status DC Lactulose (Lactulose) 30 gm BID NG Last administered on 01/09/19at 20:52; Start 01/09/19 at 21:00; Stop 01/10/19 at 13:57; Status DC Dextrose 1,000 ml @ 100 mls/hr Q10H IV Last administered on 01/13/19at 11:22; Start 01/09/19 at 12:30; Stop 01/14/19 at 13:58; Status DC Info (Tpn Per Pharmacy) 1 each PRN DAILY PRN MC SEE COMMENTS Last administered on 01/12/19at 13:31; Start 01/09/19 at 15:15; Stop 01/13/19 at 13:27; Status DC Potassium Chloride 50 meq/ Potassium Phosphate 13.6 mmol/Magnesium Sulfate 10 meq/ Calcium Gluconate 10 meq/ Multivitamins 10 ml/Chromium/ Copper/Manganese/ Seleni/Zn 1 ml/ Total Parenteral Nutrition/Amino Acids/Dextrose/ Fat Emulsion Intravenous 1,512 ml @ 63 mls/hr TPN CONT IV Last administered on 01/09/19at 21:41; Start 01/09/19 at 22:00; Stop 01/10/19 at 21:59; Status DC Potassium Chloride/Water 50 ml @ 50 mls/hr Q1H IV Last administered on 01/09/19at 20:51; Start 01/09/19 at 18:00; Stop 01/09/19 at 21:59; Status DC Potassium Phosphate 13.6 mmol/Dextrose 254.5333 ml @ 62.646 m... 1X ONCE IV Last administered on 01/09/19at 21:49; Start 01/09/19 at 22:00; Stop 01/10/19 at 08:03; Status DC Potassium Chloride/Water 50 ml @ 50 mls/hr Q1H IV Last administered on 01/10/19at 11:41; Start 01/10/19 at 08:00; Stop 01/10/19 at 11:59; Status DC Sodium Phosphate 40 mmol/Dextrose 263.3333 ml @ 62.5 mls/hr 1X ONCE IV ; Start 01/10/19 at 08:00; Stop 01/10/19 at 08:49; Status DC Potassium Phosphate 12 mmol/ Sodium Chloride 254 ml @ 125 mls/hr Q2H IV Last administered on 01/10/19at 15:24; Start 01/10/19 at 08:00; Stop 01/10/19 at 11:59; Status DC Potassium Chloride 40 meq/ Potassium Acetate 40 meq/Potassium Phosphate 15 mmol/ Magnesium Sulfate 10 meq/Calcium Gluconate 10 meq/ Multivitamins 10 ml/Chromium/ Copper/Manganese/ Seleni/Zn 1 ml/ Total Parenteral Nutrition/Amino Acids/Dextrose/ Fat Emulsion Intravenous 1,512 ml @ 63 mls/hr TPN CONT IV Last administered on 01/10/19at 22:08; Start 01/10/19 at 22:00; Stop 01/11/19 at 21:59; Status DC Pantoprazole Sodium (PROTONIX VIAL for IV PUSH) 40 mg BIDAC IVP Last administered on 01/14/19 08:54; Start 01/10/19 at 16:30; Stop 01/14/19 at 11:38; Status DC Sodium Chloride 250 ml @ 250 mls/hr 1X ONCE IV Last administered on 01/10/19at 19:30; Start 01/10/19 at 19:30; Stop 01/10/19 at 20:29; Status DC Lorazepam (Ativan Inj) 1 mg PRN Q6HRS PRN IV ANXIETY / AGITATION Last administered on 01/15/19at 00:38; Start 01/10/19 at 23:15 Potassium Chloride 40 meq/ Potassium Acetate 40 meq/Potassium Phosphate 15 mmol/ Magnesium Sulfate 10 meq/Calcium Gluconate 10 meq/ Multivitamins 10 ml/Chromium/ Copper/Manganese/ Seleni/Zn 1 ml/ Total Parenteral Nutrition/Amino Acids/Dextrose/ Fat Emulsion Intravenous 1,512 ml @ 63 mls/hr TPN CONT IV Last administered on 01/11/19 21:34; Start 01/11/19 at 22:00; Stop 01/12/19 at 21:59; Status DC Morphine Sulfate (Morphine Sulfate) 2 mg 1X ONCE IV Last administered on 01/12/19at 10:40; Start 01/12/19 at 09:30; Stop 01/12/19 at 09:31; Status DC Potassium Phosphate 13.6 mmol/Dextrose 104.5333 ml @ 52.267 m... Q2H IV Last administered on 01/12/19at 13:22; Start 01/12/19 at 11:30; Stop 01/12/19 at 15:29; Status DC Vancomycin HCl (Vanco Per Pharmacy) 1 each PRN DAILY PRN MC SEE COMMENTS Last administered on 01/15/19at 03:09; Start 01/12/19 at 11:15; Stop 01/15/19 at 08:54; Status DC Vancomycin HCl 2 gm/Sodium Chloride 500 ml @ 250 mls/hr ONCE ONCE IV Last administered on 01/12/19at 13:22; Start 01/12/19 at 12:00; Stop 01/12/19 at 13:59; Status DC Potassium Chloride 40 meq/ Potassium Acetate 40 meq/Potassium Phosphate 15 mmol/ Magnesium Sulfate 10 meq/Calcium Gluconate 10 meq/ Multivitamins 10 ml/Chromium/ Copper/Manganese/ Seleni/Zn 1 ml/ Total Parenteral Nutrition/Amino Acids/Dextrose/ Fat Emulsion Intravenous 1,512 ml @ 63 mls/hr TPN CONT IV Last administered on 01/12/19at 21:48; Start 01/12/19 at 22:00; Stop 01/13/19 at 21:59; Status DC Vancomycin HCl 2 gm/Sodium Chloride 500 ml @ 250 mls/hr 1X ONCE IV Last administered on 01/13/19at 08:27; Start 01/13/19 at 08:00; Stop 01/13/19 at 09:59; Status DC Vancomycin HCl 1.25 gm/Sodium Chloride 250 ml @ 167 mls/hr Q12H IV Last administered on 01/14/19at 08:54; Start 01/13/19 at 21:00; Stop 01/14/19 at 23:22; Status DC Vancomycin HCl (Vancomycin Trough Level) 1 each 1X ONCE MC ; Start 01/14/19 at 20:30; Stop 01/15/19 at 10:33; Status DC Lactobacillus Rhamnosus (Culturelle) 1 cap BID PO Last administered on 01/17/19at 07:50; Start 01/14/19 at 21:00 Pantoprazole Sodium (Protonix) 40 mg DAILYAC PO Last administered on 01/17/19at 07:50; Start 01/15/19 at 07:30 Dextrose/Sodium Chloride 1,000 ml @ 150 mls/hr Q6H40M IV Last administered on 01/17/19at 11:29; Start 01/14/19 at 14:00 Vancomycin HCl 1 gm/Sodium Chloride 250 ml @ 250 mls/hr Q12H IV Last administered on 01/15/19at 06:18; Start 01/15/19 at 06:00; Stop 01/15/19 at 08:54; Status DC Vancomycin HCl (Vancomycin Trough Level) 1 each 1X ONCE MC ; Start 01/16/19 at 17:30; Stop 01/16/19 at 17:30; Status DC Furosemide (Lasix) 40 mg 1X ONCE IVP Last administered on 01/16/19at 10:50; Start 01/16/19 at 10:15; Stop 01/16/19 at 10:16; Status DC Furosemide (Lasix) 40 mg [id number] IVP Last administered on 01/16/19at 13:12; Start 01/16/19 at 14:00 Fentanyl Citrate (Fentanyl 2ml Vial) 25 mcg PRN Q3HRS PRN IV PAIN Last administered on 01/17/19at 11:31; Start 01/17/19 at 11:15 Fentanyl (Duragesic 25mcg/ Hr Patch) 1 patch Q3DAYS TD Last administered on 01/17/19at 11:30; Start 01/17/19 at 12:00 Active Scripts Active Reported Omeprazole 40 Mg Capsule. 1 Cap PO DAILY Vitals/I & O Vital Sign - Last 24 Hours 01/16/19 01/16/19 01/16/19 01/16/19 15:00 15:31 19:00 19:30 Temp 95.7 96.8 95.7 96.8 Pulse 83 83 Resp 16 20 B/P (MAP) 100/57 (71) 97/67 (77) Pulse Ox 93 93 97 96 O2 Delivery Room Air Room Air Room Air Room Air 01/16/19 01/16/19 01/16/19 01/17/19 19:30 19:38 23:00 03:00 Temp 94.9 95.6 94.9 95.6 Pulse 82 81 Resp 24 30 B/P (MAP) 114/74 (87) 90/59 (69) Pulse Ox 95 98 99 O2 Delivery Room Air Room Air Room Air Room Air 01/17/19 01/17/19 01/17/19 01/17/19 07:00 07:44 07:45 11:00 Temp 97.9 97.6 97.9 97.6 Pulse 89 78 Resp 22 21 B/P (MAP) 85/51 (62) 96/54 (68) Pulse Ox 96 93 94 O2 Delivery Room Air Room Air Room Air Room Air 01/17/19 01/17/19 01/17/19 01/17/19 11:06 11:30 11:31 12:08 O2 Delivery Room Air Room Air Room Air Room Air Intake and Output 01/16/19 01/16/19 01/17/19 14:59 22:59 06:59 Intake Total 50 ml 400 ml Output Total 40 ml 150 ml 50 ml Balance -40 ml -100 ml 350 ml ISHAAN GIFFORD MD Jan 17, 2019 13:55
--- NOTE | 2019-01-17 14:48 | PDOC ---
PROGRESS NOTES Assessment Problems Medical Problems: (1) Alcoholic liver disease Status: Acute (2) Cholelithiasis Status: Acute (3) Colitis Status: Acute (4) Jaundice Status: Acute (5) Pancreatitis Status: Acute (6) Thrombocytopenia Status: Acute Metabolic and toxic encephalopathy. Alcohol intoxication and alcoholism Plan Note plans for home on hospice Follow-up with neurology as needed Subjective None Objective Vital Signs Date Time Temp Pulse Resp B/P (MAP) Pulse Ox O2 Delivery O2 Flow Rate FiO2 01/17/19 14:44 94 Room Air 01/17/19 11:00 97.6 78 21 96/54 (68) 97.6 Intake and Output0 01/17/19 07:00 Intake Total 450 ml Output Total 240 ml Balance 210 ml Intake Oral 450 ml Output Urine Total 240 ml PHYSICAL EXAM Jaundiced Sleepy, no verbal response PERRL. EOMI. CN: no focal findings. Muscle tone: normal. Muscle strength: moves extremities DTR: 1+ Plantar reflex: flexor Gait: not examined in bed. Sensory exam: no abnormal findings. Cerebellar: not cooperative Review of Relevant I have reviewed the following items pierre (where applicable) has been applied. Labs Laboratory Tests Test 01/16/19 06:30 01/17/19 06:15 01/17/19 11:35 White Blood Count 18.8 x10^3/uL (4.0-11.0) 22.8 x10^3/uL (4.0-11.0) Red Blood Count 2.11 x10^6/uL (4.30-5.70) 2.29 x10^6/uL (4.30-5.70) Hemoglobin 7.7 g/dL (13.0-17.5) 8.3 g/dL (13.0-17.5) Hematocrit 23.0 % (39.0-53.0) 25.0 % (39.0-53.0) Mean Corpuscular Volume 109 fL (79-100) 109 fL (79-100) Mean Corpuscular Hemoglobin 37 pg (25-35) 36 pg (25-35) Mean Corpuscular Hemoglobin Concent 34 g/dL (31-37) 33 g/dL (31-37) Red Cell Distribution Width 26.3 % (11.5-14.5) 26.3 % (11.5-14.5) Platelet Count 94 x10^3/uL (140-400) 84 x10^3/uL (140-400) Neutrophils (%) (Auto) 89 % (31-73) 91 % (31-73) Lymphocytes (%) (Auto) 4 % (24-48) 2 % (24-48) Monocytes (%) (Auto) 5 % (0-9) 6 % (0-9) Eosinophils (%) (Auto) 1 % (0-3) 1 % (0-3) Basophils (%) (Auto) 1 % (0-3) 1 % (0-3) Neutrophils # (Auto) 16.6 x10^3/uL (1.8-7.7) 20.8 x10^3/uL (1.8-7.7) Lymphocytes # (Auto) 0.8 x10^3/uL (1.0-4.8) 0.5 x10^3/uL (1.0-4.8) Monocytes # (Auto) 0.9 x10^3/uL (0.0-1.1) 1.3 x10^3/uL (0.0-1.1) Eosinophils # (Auto) 0.3 x10^3/uL (0.0-0.7) 0.1 x10^3/uL (0.0-0.7) Basophils # (Auto) 0.2 x10^3/uL (0.0-0.2) 0.1 x10^3/uL (0.0-0.2) Segmented Neutrophils % 85 % (35-66) Band Neutrophils % 4 % (0-9) Lymphocytes % 6 % (24-48) Monocytes % 2 % (0-10) Eosinophils % 1 % (0-5) Myelocytes % 2 % (0-0) Platelet Estimate Decreased (ADEQUATE) Large Platelets Few Anisocytosis Marked Macrocytosis Present Sodium Level 132 mmol/L (136-145) 133 mmol/L (136-145) Potassium Level 4.0 mmol/L (3.5-5.1) 4.4 mmol/L (3.5-5.1) Chloride Level 102 mmol/L (98-107) 102 mmol/L (98-107) Carbon Dioxide Level 17 mmol/L (21-32) 14 mmol/L (21-32) Anion Gap 13 (6-14) 17 (6-14) Blood Urea Nitrogen 60 mg/dL (8-26) 69 mg/dL (8-26) Creatinine 2.8 mg/dL (0.7-1.3) 3.7 mg/dL (0.7-1.3) Estimated GFR (Cockcroft-Gault) 24.7 17.9 Glucose Level 124 mg/dL (70-99) 84 mg/dL (70-99) Calcium Level 7.0 mg/dL (8.5-10.1) 7.0 mg/dL (8.5-10.1) Phosphorus Level 7.3 mg/dL (2.6-4.7) 8.8 mg/dL (2.6-4.7) Magnesium Level 2.2 mg/dL (1.8-2.4) 2.3 mg/dL (1.8-2.4) Total Bilirubin 26.1 mg/dL (0.2-1.0) Direct Bilirubin 20.7 mg/dL (0.0-0.2) Aspartate Amino Transf (AST/SGOT) 199 U/L (15-37) Alanine Aminotransferase (ALT/SGPT) 132 U/L (16-63) Alkaline Phosphatase 158 U/L (46-116) Total Protein 5.1 g/dL (6.4-8.2) Albumin 1.4 g/dL (3.4-5.0) Prothrombin Time 26.8 SEC (11.7-14.0) Prothromb Time International Ratio 2.5 (0.8-1.1) Laboratory Tests Test 01/17/19 06:15 01/17/19 11:35 White Blood Count 22.8 x10^3/uL (4.0-11.0) Red Blood Count 2.29 x10^6/uL (4.30-5.70) Hemoglobin 8.3 g/dL (13.0-17.5) Hematocrit 25.0 % (39.0-53.0) Mean Corpuscular Volume 109 fL (79-100) Mean Corpuscular Hemoglobin 36 pg (25-35) Mean Corpuscular Hemoglobin Concent 33 g/dL (31-37) Red Cell Distribution Width 26.3 % (11.5-14.5) Platelet Count 84 x10^3/uL (140-400) Neutrophils (%) (Auto) 91 % (31-73) Lymphocytes (%) (Auto) 2 % (24-48) Monocytes (%) (Auto) 6 % (0-9) Eosinophils (%) (Auto) 1 % (0-3) Basophils (%) (Auto) 1 % (0-3) Neutrophils # (Auto) 20.8 x10^3/uL (1.8-7.7) Lymphocytes # (Auto) 0.5 x10^3/uL (1.0-4.8) Monocytes # (Auto) 1.3 x10^3/uL (0.0-1.1) Eosinophils # (Auto) 0.1 x10^3/uL (0.0-0.7) Basophils # (Auto) 0.1 x10^3/uL (0.0-0.2) Sodium Level 133 mmol/L (136-145) Potassium Level 4.4 mmol/L (3.5-5.1) Chloride Level 102 mmol/L (98-107) Carbon Dioxide Level 14 mmol/L (21-32) Anion Gap 17 (6-14) Blood Urea Nitrogen 69 mg/dL (8-26) Creatinine 3.7 mg/dL (0.7-1.3) Estimated GFR (Cockcroft-Gault) 17.9 Glucose Level 84 mg/dL (70-99) Calcium Level 7.0 mg/dL (8.5-10.1) Phosphorus Level 8.8 mg/dL (2.6-4.7) Magnesium Level 2.3 mg/dL (1.8-2.4) Total Bilirubin 26.1 mg/dL (0.2-1.0) Direct Bilirubin 20.7 mg/dL (0.0-0.2) Aspartate Amino Transf (AST/SGOT) 199 U/L (15-37) Alanine Aminotransferase (ALT/SGPT) 132 U/L (16-63) Alkaline Phosphatase 158 U/L (46-116) Total Protein 5.1 g/dL (6.4-8.2) Albumin 1.4 g/dL (3.4-5.0) Prothrombin Time 26.8 SEC (11.7-14.0) Prothromb Time International Ratio 2.5 (0.8-1.1) Microbiology 01/12/19 Blood Culture - Final, Complete NO GROWTH AFTER 5 DAYS 01/04/19 Urine Culture - Final, Complete 01/04/19 Urine Culture Result 1 (DONALD) - Final, Complete Medications Current Medications Iohexol (Omnipaque 240 Mg/ml) 30 ml 1X ONCE PO Last administered on 01/04/19at 15:15; Start 01/04/19 at 15:15; Stop 01/04/19 at 15:17; Status DC Iohexol (Omnipaque 300 Mg/ml) 75 ml 1X ONCE IV Last administered on 01/04/19at 16:20; Start 01/04/19 at 15:15; Stop 01/04/19 at 15:17; Status DC Info (CONTRAST GIVEN -- Rx MONITORING) 1 each PRN DAILY PRN MC SEE COMMENTS; Start 01/04/19 at 15:30; Stop 01/06/19 at 15:29; Status DC Multivitamins 10 ml/Thiamine HCl 100 mg/Folic Acid 1 mg/Sodium Chloride 1,011.2 ml @ 100 mls/ hr DAILY IV Last administered on 01/08/19at 08:12; Start 01/04/19 at 18:00; Stop 01/08/19 at 19:07; Status DC Chlordiazepoxide (Librium) 50 mg PRN Q1HR PRN PO For CIWA 8-14 Last administered on 01/04/19at 18:17; Start 01/04/19 at 17:45 Chlordiazepoxide (Librium) 100 mg PRN Q1HR PRN PO For CIWA 15 or greater Last administered on 01/05/19at 06:27; Start 01/04/19 at 17:45 Lorazepam (Ativan) 4 mg PRN Q1HR PRN PO For CIWA 8-14 Last administered on 01/04at 18:17; Start 01/04/19 at 17:45; Stop 01/10/19 at 07:34; Status DC Lorazepam (Ativan) 8 mg PRN Q1HR PRN PO For CIWA 15 or greater; Start 01/04/19 at 17:45; Stop 01/10/19 at 07:34; Status DC Haloperidol Lactate (Haldol Inj) 5 mg PRN Q4HRS PRN IVP H allucinatns,Confusn,Delirium Last administered on 01/13/19at 11:22; Start 01/04/19 at 17:45 Diphenhydramine HCl (Benadryl) 25 mg PRN Q15MIN PRN IVP EPS symptoms 2'Haldol admin; Start 01/04/19 at 17:45 Clonidine HCl (Catapres) 0.1 mg PRN Q1HR PRN PO SBP > 180 or DBP > 100, MRX3 Last administered on 01/08/19at 07:18; Start 01/04/19 at 17:45; Stop 01/08/19 at 08:58; Status DC Lorazepam (Ativan Inj) 2 mg PRN Q1HR PRN IV For CIWA 8-14 Last administered on 01/17/19at 00:21; Start 01/04/19 at 19:15 Lorazepam (Ativan Inj) 4 mg PRN Q1HR PRN IV For CIWA 15 or greater Last administered on 01/05/19at 06:28; Start 01/04/19 at 19:15 Lorazepam (Ativan Inj) 2 mg PRN Q15MIN PRN IV SEE COMMENTS; Start 01/04/19 at 19:15; Status UNV Lorazepam (Ativan Inj) 4 mg PRN Q15MIN PRN IV SEE COMMENTS; Start 01/04/19 at 19:15; Status UNV Ondansetron HCl (Zofran) 4 mg PRN Q6HRS PRN IV NAUSEA/VOMITING Last adm inistered on 01/04/19at 19:34; Start 01/04/19 at 19:30 Pantoprazole Sodium (PROTONIX VIAL for IV PUSH) 40 mg DAILYAC IVP Last ad ministered on 01/06/19at 10:36; Start 01/06/19 at 10:00; Stop 01/06/19 at 12:17; Status DC Phytonadione (Vitamin K Ampule) 10 mg 1X ONCE SQ Last administered on 01/06/19at 10:36; Start 01/06/19 at 10:15; Stop 01/06/19 at 10:16; Status DC Piperacillin Sod/ Tazobactam Sod (Zosyn Per Pharmacy) 1 each PRN DAILY PRN MC SEE COMMENTS; Start 01/06/19 at 10:30 Piperacillin Sod/ Tazobactam Sod 3.375 gm/Sodium Chloride 50 ml @ 100 mls/hr Q6HRS IV Last administered on 01/17/19at 11:28; Start 01/06/19 at 11:00 Lactulose (Lactulose) 30 gm Q6HRS NG Last administered on 01/09/19at 05:53; Start 01/06/19 at 12:00; Stop 01/09/19 at 10:51; Status DC Metronidazole 100 ml @ 100 mls/hr Q8HRS IV Last administered on 01/09/19at 05:53; Start 01/06/19 at 14:00; Stop 01/09/19 at 07:19; Status DC Pantoprazole Sodium 80 mg/ Sodium Chloride 100 ml @ 10 mls/hr Q10H IV Last administered on 01/10/19at 02:31; Start 01/06/19 at 12:30; Stop 01/10/19 at 12:11; Status DC Octreotide Acetate 500 mcg/ Sodium Chloride 101 ml @ 0 mls/hr CONT PRN IV SEE I/O RECORD Last administered on 01/08/19at 06:08; Start 01/06/19 at 12:15; Stop 01/08/19 at 10:48; Status DC Norepinephrine Bitartrate 250 ml @ 14.235 mls/ hr CONT PRN IV SEE I/O RECORD; Start 01/06/19 at 20:15; Stop 01/13/19 at 13:28; Status DC Albumin Human 100 ml @ 100 mls/hr 1X ONCE IV Last administered on 01/06/19at 21:30; Start 01/06/19 at 20:15; Stop 01/06/19 at 21:14; Status DC Phytonadione (Vitamin K Ampule) 10 mg 1X ONCE SQ Last administered on 01/07/19at 13:04; Start 01/07/19 at 11:45; Stop 01/07/19 at 11:46; Status DC Albuterol/ Ipratropium (Duoneb) 3 ml RTQID NEB Last administered on 01/17/19at 14:43; Start 01/07/19 at 16:00 Sodium Chloride 1,000 ml @ 75 mls/hr Q60C55H IV Last administered on 01/08/19at 23:47; Start 01/08/19 at 06:00; Stop 01/09/19 at 10:19; Status DC Labetalol HCl (Normodyne Iv Push) 10 mg PRN Q4HRS PRN IVP HYPERTENSION; Start 01/08/19 at 09:00 Potassium Bicarbonate (Potassium Effervescent Tablet) 40 meq 1X ONCE PEG Last administered on 01/08/19at 12:24; Start 01/08/19 at 11:30; Stop 01/08/19 at 11:33; Status DC Potassium Bicarbonate (Potassium Effervescent Tablet) 40 meq 1X ONCE PEG Last administered on 01/08/19at 16:06; Start 01/08/19 at 16:00; Stop 01/08/19 at 16:01; Status DC Potassium Bicarbonate (Potassium Effervescent Tablet) 80 meq 1X ONCE PEG Last administered on 01/09/19at 06:58; Start 01/09/19 at 06:15; Stop 01/09/19 at 06:21; Status DC Artificial Tears (Artificial Tears) 1 drop PRN Q15MIN PRN OU DRY EYE Last administered on 01/09/19at 10:11; Start 01/09/19 at 10:00 Dextrose/Sodium Chloride 1,000 ml @ 75 mls/hr [id number] IV Last administered on 01/09/19at 11:03; Start 01/09/19 at 10:30; Stop 01/09/19 at 12:20; Status DC Potassium Chloride/Water 50 ml @ 50 mls/hr Q1H IV ; Start 01/09/19 at 10:30; Stop 01/09/19 at 12:29; Status UNV Potassium Chloride/Water 100 ml @ 100 mls/hr Q1H IV ; Start 01/09/19 at 11:00; Stop 01/09/19 at 11:00; Status DC Lactulose (Lactulose) 30 gm BID NG Last administered on 01/09/19at 20:52; Start 01/09/19 at 21:00; Stop 01/10/19 at 13:57; Status DC Dextrose 1,000 ml @ 100 mls/hr Q10H IV Last administered on 01/13/19at 11:22; Start 01/09/19 at 12:30; Stop 01/14/19 at 13:58; Status DC Info (Tpn Per Pharmacy) 1 each PRN DAILY PRN MC SEE COMMENTS Last administered on 01/12/19at 13:31; Start 01/09/19 at 15:15; Stop 01/13/19 at 13:27; Status DC Potassium Chloride 50 meq/ Potassium Phosphate 13.6 mmol/Magnesium Sulfate 10 meq/ Calcium Gluconate 10 meq/ Multivitamins 10 ml/Chromium/ Copper/Manganese/ Seleni/Zn 1 ml/ Total Parenteral Nutrition/Amino Acids/Dextrose/ Fat Emulsion Intravenous 1,512 ml @ 63 mls/hr TPN CONT IV Last administered on 01/09/19at 21:41; Start 01/09/19 at 22:00; Stop 01/10/19 at 21:59; Status DC Potassium Chloride/Water 50 ml @ 50 mls/hr Q1H IV Last administered on 01/09/19at 20:51; Start 01/09/19 at 18:00; Stop 01/09/19 at 21:59; Status DC Potassium Phosphate 13.6 mmol/Dextrose 254.5333 ml @ 62.646 m... 1X ONCE IV Last administered on 01/09/19at 21:49; Start 01/09/19 at 22:00; Stop 01/10/19 at 08:03; Status DC Potassium Chloride/Water 50 ml @ 50 mls/hr Q1H IV Last administered on 01/10/19at 11:41; Start 01/10/19 at 08:00; Stop 01/10/19 at 11:59; Status DC Sodium Phosphate 40 mmol/Dextrose 263.3333 ml @ 62.5 mls/hr 1X ONCE IV ; Start 01/10/19 at 08:00; Stop 01/10/19 at 08:49; Status DC Potassium Phosphate 12 mmol/ Sodium Chloride 254 ml @ 125 mls/hr Q2H IV Last administered on 01/10/19at 15:24; Start 01/10/19 at 08:00; Stop 01/10/19 at 11:59; Status DC Potassium Chloride 40 meq/ Potassium Acetate 40 meq/Potassium Phosphate 15 mmol/ Magnesium Sulfate 10 meq/Calcium Gluconate 10 meq/ Multivitamins 10 ml/Chromium/ Copper/Manganese/ Seleni/Zn 1 ml/ Total Parenteral Nutrition/Amino Acids/Dextrose/ Fat Emulsion Intravenous 1,512 ml @ 63 mls/hr TPN CONT IV Last administered on 01/10/19at 22:08; Start 01/10/19 at 22:00; Stop 01/11/19 at 21:59; Status DC Pantoprazole Sodium (PROTONIX VIAL for IV PUSH) 40 mg BIDAC IVP Last administered on 01/14/19 08:54; Start 01/10/19 at 16:30; Stop 01/14/19 at 11:38; Status DC Sodium Chloride 250 ml @ 250 mls/hr 1X ONCE IV Last administered on 01/10/19at 19:30; Start 01/10/19 at 19:30; Stop 01/10/19 at 20:29; Status DC Lorazepam (Ativan Inj) 1 mg PRN Q6HRS PRN IV ANXIETY / AGITATION Last administered on 01/15/19at 00:38; Start 01/10/19 at 23:15 Potassium Chloride 40 meq/ Potassium Acetate 40 meq/Potassium Phosphate 15 mmol/ Magnesium Sulfate 10 meq/Calcium Gluconate 10 meq/ Multivitamins 10 ml/Chromium/ Copper/Manganese/ Seleni/Zn 1 ml/ Total Parenteral Nutrition/Amino Acids/Dextrose/ Fat Emulsion Intravenous 1,512 ml @ 63 mls/hr TPN CONT IV Last administered on 01/11/19at 21:34; Start 01/11/19 at 22:00; Stop 01/12/19 at 21:59; Status DC Morphine Sulfate (Morphine Sulfate) 2 mg 1X ONCE IV Last administered on at 10:40; Start 01/12/19 at 09:30; Stop 01/12/19 at 09:31; Status DC Potassium Phosphate 13.6 mmol/Dextrose 104.5333 ml @ 52.267 m... Q2H IV Last administered on 01/12/19at 13:22; Start 01/12/19 at 11:30; Stop 01/12/19 at 15:29; Status DC Vancomycin HCl (Vanco Per Pharmacy) 1 each PRN DAILY PRN MC SEE COMMENTS Last administered on 01/15/19 03:09; Start 01/12/19 at 11:15; Stop 01/15/19 at 08:54; Status DC Vancomycin HCl 2 gm/Sodium Chloride 500 ml @ 250 mls/hr ONCE ONCE IV Last administered on 01/12/19 13:22; Start 01/12/19 at 12:00; Stop 01/12/19 at 13:59; Status DC Potassium Chloride 40 meq/ Potassium Acetate 40 meq/Potassium Phosphate 15 mmol/ Magnesium Sulfate 10 meq/Calcium Gluconate 10 meq/ Multivitamins 10 ml/Chromium/ Copper/Manganese/ Seleni/Zn 1 ml/ Total Parenteral Nutrition/Amino Acids/Dextrose/ Fat Emulsion Intravenous 1,512 ml @ 63 mls/hr TPN CONT IV Last administered on 01/12/19at 21:48; Start 01/12/19 at 22:00; Stop 01/13/19 at 21:59; Status DC Vancomycin HCl 2 gm/Sodium Chloride 500 ml @ 250 mls/hr 1X ONCE IV Last administered on 01/13/19at 08:27; Start 01/13/19 at 08:00; Stop 01/13/19 at 09:59; Status DC Vancomycin HCl 1.25 gm/Sodium Chloride 250 ml @ 167 mls/hr Q12H IV Last administered on 01/14/19at 08:54; Start 01/13/19 at 21:00; Stop 01/14/19 at 23:22; Status DC Vancomycin HCl (Vancomycin Trough Level) 1 each 1X ONCE MC ; Start 01/14/19 at 20:30; Stop 01/15/19 at 10:33; Status DC Lactobacillus Rhamnosus (Culturelle) 1 cap BID PO Last administered on 01/17/19at 07:50; Start 01/14/19 at 21:00 Pantoprazole Sodium (Protonix) 40 mg DAILYAC PO Last administered on 01/17/19at 07:50; Start 01/15/19 at 07:30 Dextrose/Sodium Chloride 1,000 ml @ 150 mls/hr Q6H40M IV Last administered on 01/17/19at 11:29; Start 01/14/19 at 14:00 Vancomycin HCl 1 gm/Sodium Chloride 250 ml @ 250 mls/hr Q12H IV Last administered on 01/15/19at 06:18; Start 01/15/19 at 06:00; Stop 01/15/19 at 08:54; Status DC Vancomycin HCl (Vancomycin Trough Level) 1 each 1X ONCE MC ; Start 01/16/19 at 17:30; Stop 01/16/19 at 17:30; Status DC Furosemide (Lasix) 40 mg 1X ONCE IVP Last administered on 01/16/19at 10:50; Start 01/16/19 at 10:15; Stop 01/16/19 at 10:16; Status DC Furosemide (Lasix) 40 mg [id number] IVP Last administered on 01/16/19at 13:12; Start 01/16/19 at 14:00 Fentanyl Citrate (Fentanyl 2ml Vial) 25 mcg PRN Q3HRS PRN IV PAIN Last administered on 01/17/19at 11:31; Start 01/17/19 at 11:15 Fentanyl (Duragesic 25mcg/ Hr Patch) 1 patch Q3DAYS TD Last administered on 01/17/19at 11:30; Start 01/17/19 at 12:00 Active Scripts Active Reported Omeprazole 40 Mg Capsule.dr Warren Cap PO DAILY Vitals/I & O Vital Sign - Last 24 Hours 01/16/19 01/16/19 01/16/19 01/16/19 15:00 15:31 19:00 19:30 Temp 95.7 96.8 95.7 96.8 Pulse 83 83 Resp 16 20 B/P (MAP) 100/57 (71) 97/67 (77) Pulse Ox 93 93 97 96 O2 Delivery Room Air Room Air Room Air Room Air 01/16/19 01/16/19 01/16/19 01/17/19 19:30 19:38 23:00 03:00 Temp 94.9 95.6 94.9 95.6 Pulse 82 81 Resp 24 30 B/P (MAP) 114/74 (87) 90/59 (69) Pulse Ox 95 98 99 O2 Delivery Room Air Room Air Room Air Room Air 01/17/19 01/17/19 01/17/19 01/17/19 07:00 07:44 07:45 11:00 Temp 97.9 97.6 97.9 97.6 Pulse 89 78 Resp 22 21 B/P (MAP) 85/51 (62) 96/54 (68) Pulse Ox 96 93 94 O2 Delivery Room Air Room Air Room Air Room Air 01/17/19 01/17/19 01/17/19 01/17/19 11:06 11:30 11:31 12:08 O2 Delivery Room Air Room Air Room Air Room Air 01/17/19 14:44 Pulse Ox 94 O2 Delivery Room Air Intake and Output 01/16/19 01/16/19 01/17/19 15:00 23:00 07:00 Intake Total 50 ml 400 ml Output Total 40 ml 150 ml 50 ml Balance -40 ml -100 ml 350 ml APPELBAUM,MARIA TERESA S MD Jan 17, 2019 14:48
[2019-01-17 15:30] VITALS: BP 103/57
[2019-01-17 19:00] VITALS: BP 93/50
[2019-01-17 23:00] VITALS: BP 87/46
--- NOTE | 2019-01-18 07:40 | NUR ---
Patient pronounced this AM at 0631, verified by two RNs: Hiren and Veronika. Dr. Rockwell paged and notified. [facility] called, patient eligible for tissue and cornea donation. Patient's was called at [phone]. Stated she would call to notify other family members and would be on her way. Passed this information to day RN. Nursing supervisor kosher dietary service notified as well.
--- NOTE | 2019-01-18 08:35 | NUR ---
pt candidate for eye donation. [facility] has requested hold on body until family decides. Family is contemplating having body sent to [place] for burial. More family will be visiting today so this screen writer has placed saline drops in eyes but will not place ice bags until no more family is present. [facility] informed and in agreement.
[2019-01-18] MEDS ORDERED: FENT1PAT15 TD (08:53)
[2019-01-18] MEDS ORDERED: IPRA3AMP29 NEB (08:53)
[2019-01-18] MEDS ORDERED: POLY15DR27 OU (08:53)
[2019-01-18] MEDS ORDERED: CHLO25CA9 PO (08:53)
[2019-01-18] MEDS ORDERED: FURO-68 PO (08:53)
--- NOTE | 2019-01-18 08:54 | SNU/HH DC ---
DISCHARGE ORDERS DISCHARGE INFORMATION: DISCHARGE DATE: Jan 18, 2019 FINAL DIAGNOSIS Problems Medical Problems: (1) Alcoholic liver disease Status: Acute (2) Cholelithiasis Status: Acute (3) Colitis Status: Acute (4) Jaundice Status: Acute (5) Pancreatitis Status: Acute (6) Thrombocytopenia Status: Acute CONDITION ON DISCHARGE: Stable CODE STATUS: Code Status: DNR/DNI PRISON: SNF STAY <30 DAYS: Yes HOSPICE: HOSPICE: Yes HOSPICE EVAL & TREAT: Yes LTAC: ADMIT TO LTAC: No POST DISCHARGE ORDERS: ACTIVITY ORDERS: Bedrest today DIET AFTER DISCHARGE: dysphagia 2 CHECKS AFTER DISCHARGE: COMMENTS: hospice DISCHARGE MEDICATIONS: Home Meds Active Scripts Furosemide (LASIX) 40 Mg Tablet, 40 MG PO BID for anasarca, #60 TAB Prov:BRONSON STILL MD 01/18/19 Polyvinyl Alcohol (ARTIFICIAL TEARS) 15 Ml Drops, 1 DROP OU PRN Q15MIN PRN for DRY EYE, #1 DROP Prov:BRONSON STILL MD 01/18/19 Chlordiazepoxide Hcl (CHLORDIAZEPOXIDE HCL) 25 Mg Capsule, 50 MG PO PRN Q1HR PRN for For CIWA 8-14, #30 CAP Prov:BRONSON STILL MD 01/18/19 Fentanyl (FENTANYL 25mcg/hr) 1 Each Patch.td72, 1 PATCH TD Q3DAYS for hospice, pain, #10 PATCH Prov:BRONSON STILL MD 01/18/19 Ipratropium/Albuterol Sulfate (DUONEB 0.5-3(2.5) MG/3 ML) 3 Ml Ampul.neb, 3 ML NEB RTQID for soa, #60 EACH Prov:BRONSON STILL MD 01/18/19 Discontinued Reported Medications Omeprazole (OMEPRAZOLE) 40 Mg Capsule.dr, 1 CAP PO DAILY for GERD, #30 CAP 3 Refills 01/04/19 BRONSON STILL MD Jan 18, 2019 08:54
--- NOTE | 2019-01-18 09:21 | PDOC3 ---
Discharge Summary Visit Information Date of Admission: Jan 04, 2019 Date of Discharge: Jan 18, 2019 Admitting Diagnosis Comment: JAundice, thrombocytopenia Liver mass? Sepsis w/ hypotension, lactic acidosis and fever - t.o ICU severely encephalopathic - sitter hypernatremia, hypokalemia - Hemoglobin 8.3 post transfusion 01/09 Coagulopathy s/p FFP moved ICU Ammonia levels 208 ON ADMIT Final Diagnosis Problems Medical Problems: (1) Alcoholic liver disease Status: Acute (2) Cholelithiasis Status: Acute (3) Colitis Status: Acute (4) Jaundice Status: Acute (5) Pancreatitis Status: Acute (6) Thrombocytopenia Status: Acute Brief Hospital Course Allergies Allergies Coded Allergies Type Severity Reaction Last Updated Verified No Known Drug Allergies 01/04/19 No Vital Signs Vital Signs Date Time Temp Pulse Resp B/P (MAP) Pulse Ox O2 Delivery O2 Flow Rate FiO2 01/18/19 02:06 98.4 98.4 01/17/19 23:00 89 22 87/46 (60) 92 Room Air 01/17/19 15:30 15.0 Lab Results Laboratory Tests Test 01/17/19 06:15 01/17/19 11:35 White Blood Count 22.8 x10^3/uL (4.0-11.0) Red Blood Count 2.29 x10^6/uL (4.30-5.70) Hemoglobin 8.3 g/dL (13.0-17.5) Hematocrit 25.0 % (39.0-53.0) Mean Corpuscular Volume 109 fL (79-100) Mean Corpuscular Hemoglobin 36 pg (25-35) Mean Corpuscular Hemoglobin Concent 33 g/dL (31-37) Red Cell Distribution Width 26.3 % (11.5-14.5) Platelet Count 84 x10^3/uL (140-400) Neutrophils (%) (Auto) 91 % (31-73) Lymphocytes (%) (Auto) 2 % (24-48) Monocytes (%) (Auto) 6 % (0-9) Eosinophils (%) (Auto) 1 % (0-3) Basophils (%) (Auto) 1 % (0-3) Neutrophils # (Auto) 20.8 x10^3/uL (1.8-7.7) Lymphocytes # (Auto) 0.5 x10^3/uL (1.0-4.8) Monocytes # (Auto) 1.3 x10^3/uL (0.0-1.1) Eosinophils # (Auto) 0.1 x10^3/uL (0.0-0.7) Basophils # (Auto) 0.1 x10^3/uL (0.0-0.2) Sodium Level 133 mmol/L (136-145) Potassium Level 4.4 mmol/L (3.5-5.1) Chloride Level 102 mmol/L (98-107) Carbon Dioxide Level 14 mmol/L (21-32) Anion Gap 17 (6-14) Blood Urea Nitrogen 69 mg/dL (8-26) Creatinine 3.7 mg/dL (0.7-1.3) Estimated GFR (Cockcroft-Gault) 17.9 Glucose Level 84 mg/dL (70-99) Calcium Level 7.0 mg/dL (8.5-10.1) Phosphorus Level 8.8 mg/dL (2.6-4.7) Magnesium Level 2.3 mg/dL (1.8-2.4) Total Bilirubin 26.1 mg/dL (0.2-1.0) Direct Bilirubin 20.7 mg/dL (0.0-0.2) Aspartate Amino Transf (AST/SGOT) 199 U/L (15-37) Alanine Aminotransferase (ALT/SGPT) 132 U/L (16-63) Alkaline Phosphatase 158 U/L (46-116) Total Protein 5.1 g/dL (6.4-8.2) Albumin 1.4 g/dL (3.4-5.0) Prothrombin Time 26.8 SEC (11.7-14.0) Prothromb Time International Ratio 2.5 (0.8-1.1) Laboratory Tests Test 01/17/19 11:35 Prothrombin Time 26.8 SEC (11.7-14.0) Prothromb Time International Ratio 2.5 (0.8-1.1) Brief Hospital Course Mr. Gandhi is a 43 old male heavy alcoholic who stayed with us 2 weeks. Came in because of jaundice, thrombocytopenia, septic shock needing ICU hypotension, levophed. Some encephalopathy with elevated ammonia. Electrolyte abnormalities. Oliguria. He had some ileus and cholelithiasis etc. with coagulopathy with poor surgical candidate. Unfortunately he was not recovering, transferred to the non-telemetry bed may be around 4 days prior to expiring Palliative got involved made DNR. After which patient the next day I have seen and examined patient, still soft but cyanotic. Other family members are coming Paperwork done Discharge Information Condition at Discharge: / Scheduled Fentanyl (FENTANYL 25mcg/hr) 1 Each Patch.td72, 1 PATCH TD Q3DAYS for hospice, pain, #10 Prescribed by: BRONSON STILL on 01/18/19 0853 Furosemide (Lasix) 40 Mg Tablet, 40 MG PO BID for anasarca, #60 Prescribed by: BRONSON STILL on 01/18/19 0853 Ipratropium/Albuterol Sulfate (Duoneb 0.5-3(2.5) Mg/3 Ml) 3 Ml Ampul.neb, 3 ML NEB RTQID for soa, #60 Prescribed by: BRONSON STILL on 01/18/19 0853 Scheduled PRN Chlordiazepoxide Hcl (Chlordiazepoxide Hcl) 25 Mg Capsule, 50 MG PO PRN Q1HR PRN for For CIWA 8-14, #30 Prescribed by: BRONSON STILL on 01/18/19 0853 Polyvinyl Alcohol (Artificial Tears) 15 Ml Drops, 1 DROP OU PRN Q15MIN PRN for DRY EYE, #1 Prescribed by: BRONSON STILL on 01/18/19 0853 Discontinued Medications Omeprazole (Omeprazole) 40 Mg Capsule., 1 CAP PO DAILY for GERD, #30 Ref 3 (Reported) Entered as Reported by: NITO GARNER on 01/04/191841 Last Action: New Order on 01/04/191841 by BRONSON RIVERA MD Jan 18, 2019 09:21
--- NOTE | 2019-01-18 11:45 | NUR ---
saving sight now in room for procedure. no family present
--- NOTE | 2019-01-18 16:25 | NUR ---
pt placed in bag and onto gurney for transport to [facility] [place]. belongings that were left in room by family sent to [facility] [place] w/ security, to include 2 gold hoop earrings and one white blue tooth speaker with charging cord. voicemail left with Jennifer, , regarding these items.
== END 2019-01-18 16:27 | disposition expired | DRG 871 ==
LOC: ER 12:10 → 5 NORTH 16:07 → 1 WEST ICU 01-06 09:45 → 5 SOUTH 01-14 16:30
PROVIDERS: ADMIT Internal Medicine; ATTEND Internal Medicine
PROC: 30233K1 Transfusion of Nonautologous Frozen Plasma into Peripheral Vein, Percutaneous Approach (ICD-10-PCS; principal; 2019-01-06)
PROC: 30233N1 Transfusion of Nonautologous Red Blood Cells into Peripheral Vein, Percutaneous Approach (ICD-10-PCS; 2019-01-06)
PROC: 5A09457 Assistance with Respiratory Ventilation, 24-96 Consecutive Hours, Continuous Positive Airway Pressure (ICD-10-PCS; 2019-01-07)
PROC: 02H633Z Insertion of Infusion Device into Right Atrium, Percutaneous Approach (ICD-10-PCS; 2019-01-09)
DX: A41.9 Sepsis, unspecified organism (principal); G92 Toxic encephalopathy; J96.01 Acute respiratory failure with hypoxia; K85.90 Acute pancreatitis without necrosis or infection, unspecified; R65.21 Severe sepsis with septic shock; D68.4 Acquired coagulation factor deficiency; E46 Unspecified protein-calorie malnutrition; E87.0 Hyperosmolality and hypernatremia; J98.11 Atelectasis; K56.7 Ileus, unspecified; K80.10 Calculus of gallbladder with chronic cholecystitis without obstruction; N17.9 Acute kidney failure, unspecified; J90 Pleural effusion, not elsewhere classified; K92.2 Gastrointestinal hemorrhage, unspecified; D64.9 Anemia, unspecified; D69.59 Other secondary thrombocytopenia; E86.0 Dehydration; E87.6 Hypokalemia; F10.229 Alcohol dependence with intoxication, unspecified; F41.0 Panic disorder [episodic paroxysmal anxiety]; I10 Essential (primary) hypertension; K21.0 Gastro-esophageal reflux disease with esophagitis; K52.9 Noninfective gastroenteritis and colitis, unspecified; K70.11 Alcoholic hepatitis with ascites; K70.31 Alcoholic cirrhosis of liver with ascites; K70.40 Alcoholic hepatic failure without coma; K82.8 Other specified diseases of gallbladder; Z66 Do not resuscitate; F32.9 Major depressive disorder, single episode, unspecified; F41.9 Anxiety disorder, unspecified; Z79.899 Other long term (current) drug therapy; Z68.37 Body mass index [BMI] 37.0-37.9, adult; E83.39 Other disorders of phosphorus metabolism
CPT/HCPCS: 36415; 36556; 36600; 70450; 71045; 74018; 74021; 74177; 76700; 76937; 80048; 80053; 80076; 80202; 80307; 81001; 82105; 82140; 82436; 82805; 82962; 83010; 83051; 83605; 83690; 83735; 83935; 84100; 84132; 84133; 84134; 84300; 84443; 84478; 85007; 85025; 85027; 85049; 85379; 85384; 85610; 85730; 86850; 86900; 86901; 86920; 86927; 87040; 87086; 87641; 93306; 94640; 94660; 94760; C1892; C9113; G0480; J0610; J1630; J1940; J2060; J2270; J2354; J2405; J2543; J3010; J3370; J3430; J3475; J3480; J3490; J7030; J7040; J7042; J7050; J7620; P9016; P9017; P9046; Q9966; Q9967; 92526; 92610; 97110; 97116; 97530; 97535; 99285-25